=== PATIENT | female | born 1945 | race Caucasian/White ===

== ENCOUNTER 2025-09-25 13:58 | Inpatient (IN) | payer MEDICARE, OTHER, SELFPAY ==
--- OUTSIDE RECORDS SUMMARY | 2024-07-28 08:54 | XMS_ITS | Encounter Summary ---
Author Organization [facility] [address] Address [address] [place] [address] Care Team Providers Care Aluminum Pool Installer Name Role Phone Jermaine aLzaro MD Primary Care Provider [phone] Encounter Details Date Type Department Care Team (Late st Contact Info) Description 07/28/2024 9:54 AM EDT Hospital Encounter TH HISTORIC ENCOUNTERS EASTERN CONVERSION ONLY Social History Tobacco Use Types Packs/Day Years Used Date Smoking Tobacco: Never Smokeless Tobacco: Never Alcohol Use Standard Drinks/Week Comments Never 0 (1 standard drink = 0.6 oz pur e alcohol) Housing Instability Answer Date Recorde d Are you worried that in the next 2 months you may not have stable housing? No 09/16/2025 Food Access & Nutrition Answer Date Rec orded Do you have access to a vari ety of food including fruits and vegetables? Yes 09/16/2025 Access to Healthcare Answer Date Record ed Within the last 3 months, ho w many times did you visit the emergency department for your medical care? 2 09/16/2025 Health Literacy Answer Date Recorded How often do you need to hav e someone help you when you read instructions, pamphlets, or other written material from your doctor or pharmacy? Never 09/16/2025 Caregiver: How often do you need to have someone help you when you read instructions, pamphlets, or other written material from your doctor or pharmacy? Not on file 09/16/2025 Financial Risk Answer Date Recorded How hard is it for you to pa y for the very basics like food, housing, medical care, and air conditioning / heating? Not very hard 09/16/2025 Transportation Answer Date Recorded Has the lack of transportati on kept you from meetings, work, or from getting things needed for daily living? No Has the lack of transportati on kept you from medical appointments or from getting medications? No 09/16/2025 Social Isolation Answer Date Recorded How often do you feel lonely or isolated from th ose around you? Never 09/16/2025 Food Risk Answer Date Recorded Within the past 12 months we worried whether our food would run out before we got money to buy more. Never true 09/16/2025 Within the past 12 months th e food we bought just didn't last and we didn't have money to get more. Never true 09/16/2025 Dependent Care Answer Date Recorded Do you need help finding or paying for care for your loved ones. For example, vocational childcare teacher or elderly care for an older adult? No 09/16/2025 Education Answer Date Recorded Do you think completing more education or training, like finishing a GED, going to college, or learning a trade, would be helpful for you? No 09/16/2025 Employment and Income Answer Date Recor ded During the last four weeks, have you been actively looking for work? No 09/16/2025 Living Situation Answer Date Recorded What is your living situation? Unrecognized valu e 09/16/2025 Interpersonal Safety Answer Date Record ed Physical Abuse Unrecognized value 09/16/2025 Verbal Abuse Unrecognized value 09/16/2025 Comments No Sex and Gender Information Value Date Recorded Sex Assigned at Female 11/09/2024 1:36 PM EST Legal Sex Female 12:28 AM EST Gender Identity Female 11/09/2024 1:36 PM EST Sexual Orientation Straight 11/09/2024 1: 36 PM EST documented as of this encounter Last Filed Vital Signs Vital Sign Reading Time Taken Comments Blood Pressure - - Pulse - - Temperature - - Respiratory Rate - - Oxygen Saturation - - Inhaled Oxygen Concentration - - Weight 49.4 kg (109 lb) 04/10/2024 11:08 AM EDT Height - - Body Mass Index - - documented in this encounter Functional Status * Calculated C-SSRS Risk Score (Lifetime/Recent) Answer Date of Assessment Author No Risk Indicated 09/16/2025 11:15 AM Maria T Lau, FREDERICK * [place] Suicide Severity Rating Scale (Screener/Recent Self-Report) Question Answer Date of Assessment Author 1. Wish to be (Past 1 Month) No 09/16/2025 11:15 AM Amol Thacker RN 2. Non-Specific Active Suici elías Thoughts (Past 1 Month) No 09/16/2025 11:15 AM Me rogelio Thacker RN 6. Suicidal Behavior (Lifetime) No 11:15 AM Maria T Thacker, FREDERICK documented as of this encounter Progress Notes * Historical, Notes Results - 07/28/2024 10:00 AM EDT 1010: PT arrives today with Son for biweekly port drawn labs for possible blood transfusion. PT annel feels very weak today and thinks she needs a transfusion. PT sts she was in the ER over the weekend and received 2 units of blood. Port accessed without diff, +BR noted, labs obtained and sent, flushed per protocol with 3 flushes, deaccessed, dressing applied. PT aware to wear Typenex band for 3 days or until we call her, PT verbalized understanding. PT sts she is hoping for a blood transfusion to help with her weakness. PT left unit via wheelchair with son, stable at D/C. documented in this encounter Plan of Treatment Upcoming Encounters Date Type Department Care Team (Late st Contact Info) Description 01/24/2026 10:30 AM EDT Office Visit [facility] Hematology Oncology [address] [place] [phone] Marilee Rahman MD [address] [place] [address] documented as of this encounter Visit Diagnoses Not on filedocumented in this encounter Care Teams Aluminum Pool Installer Relationship Specialty Start Date End Date Jermaine Lazaro MD [address] [place] [id number] PCP - General Hide Buffer 02/06/22 documented as of this encounter
--- OUTSIDE RECORDS SUMMARY | 2024-08-11 12:24 | XMS_ITS | Encounter Summary ---
Author Organization [facility] Address [address] [place] [address] Care Team Providers Care Manager Programs Name Role Phone Jermaine Lazaro MD Primary Care Provider [phone] Encounter Details Date Type Department Care Team (Late st Contact Info) Description 08/11/2024 1:24 PM EDT Hospital Encounter TH HISTORIC ENCOUNTERS EASTERN [...] care for your loved ones. For example, child and youth program assistant or elderly care for an older adult? [...] 11:15 AM Maria T Lau, FREDERICK * [place] Suicide Severity Rating Scale (Screener/Recent Self-Report) Question [...] Progress Notes * Historical, Notes Results - 08/11/2024 1:30 PM EDT Patient arrives via wheelchair, accompanied by aide for a port blood draw. Port accessed, +BR. Cbcd, type and screen drawn. Port flushed per protocol. Patient discharged stable, via wheelchair. Accompanied by home health aide. documented in this encounter Plan of Treatment Upcoming Encounters Date Type Department Care Team (Late st Contact Info) Description 01/24/2026 10:30 AM EDT Office Visit [facility] Hematology Oncology [address] [place] [address] Marilee Rahman MD [address] [place] [address] documented as of this encounter Visit Diagnoses Not on filedocumented in this encounter Care Teams Manager Programs Relationship Specialty Start Date End Date Jermaine Lazaro MD [address] [place] [address] PCP - General Construction Tech 02/06/22 documented as of this encounter
--- OUTSIDE RECORDS SUMMARY | 2024-08-13 08:30 | XMS_ITS | Encounter Summary ---
Author Organization [facility] Address [address] [place] [address] Care Team Providers Care Apprentice Lineman Third Step Name Role Phone Jermaine Lazaro MD Primary Care Provider [phone] Encounter Details Date Type Department Care Team (Latest Contact Info) Description 08/13/2024 9:30 AM EDT Hospital Encounter TH HISTORIC ENCOUNTERS EASTERN CONVERSION ONLY Anemia, unspecified; Myelodysplastic syndrome, unspecified (CMS/HCC V24, CMS/HCC V28); Mitochondrial metabolism disorder, unspecified (CMS/HCC V24) Social History Tobacco Use Types Packs/Day Years [...] Record ed Within the last 3 months, jer w many times did you visit the [...] for your loved ones. For example, child abuse worker or elderly care for an older adult? [...] 11:15 AM Maria T Lau, FREDERICK * [place] Suicide Severity Rating Scale (Screener/Recent Self-Report) Question [...] Progress Notes * Historical, Notes Results - 08/13/2024 10:06 AM EDT 1006- Patient arrives, via wheelchair to unit accompanied by her aide for scheduled blood transfusion. Hemoglobin was 6.3 on 08/11/24. Typenex is current and dated the same day. Paper order in place to give two units PRBC's today. Unfortunately, blood order was never fax'd to blood bank and patienthas antibodies. This nurse fax'd the order this morning and blood bank notified RN that the processwould take awhile as patient has antibodies. Patient notified upon arrival. She reports frustrationdue to a busy and stressful week. History of CREST syndrome, anemia and MDS. She receives frequent blood transfusions here and tolerates well if blood is run slowly (history of PAH). Patient reports CARDENAS, intermittent dizziness and severe fatigue. Discussion on blood transfusion completed and consent signed. This will be scanned into the system with blood order. Left chest port a cath accessed without difficulty and NS flush bag with blood tubing hung. Patient remains comfortable in recliner with warm blankets while awaiting blood bank to call with news that blood is ready for pickling grader. Call white in reach. 1100- Blood bank called. Blood is ready. MA sent to blood bank for retrieval at this time. 1120- Unit of blood infusing. Patient is tolerating well thus far at second step slow rate of 100 mls/hr. Patient is sleeping on and off in recliner with the call white near. 1350- Patient requesting rate change from 100 mls/hr to 120 mls/hr. Will let this nurse know if shecannot tolerate the new rate. Rate adjusted at this time per patient request. 1505- Patient completed the first unit without difficulty. She was wheeled to the bathroom with assist then settled back in recliner. Port flushed and new NS flush bag with blood tubing hung. [facility] blood bank for second unit. 1542- Patient tolerating the second unit well thus far. Following the first step, patient continuesto tolerate the infusion at 120 mls/hr. She voices no concerns or complaints. 1720- Report given to Ale Cleaning, late nurse, as this nurse is leaving for the night. Patient updated. Next port draw and possible transfusion appointments booked, printed and given to patient. Shehas the phone number for her ELECTRICAL TECHNOLOGY INSTRUCTOR, to call when she is nearing time of discharge. * Historical, Notes Results - 08/13/2024 9:30 AM EDT 1822 Blood transfusion completed without incident, pt tells me she feels better than when she came in. Escorted outside to ride in wheelchair, her son picked her up. Stable at D/C. documented in this encounter Plan of Treatment Upcoming Encounters Date Type Department Care Team (Late st Contact Info) Description 01/24/2026 10:30 AM EDT Office Visit [facility] Hematology Oncology [address] [place] [phone] Marilee Rahman MD [address] [place] [address] documented as of this encounter Visit Diagnoses Diagnosis Anemia, unspecified Myelodysplastic syndrome, unspecified (CMS/HCC V24, CMS/HCC V28) Myelodysplastic syndrome, unspecified Mitochondrial metabolism disorder, unspecified (CMS/HCC V24) documented in this encounter Care Teams Apprentice Lineman Third Step Relationship Specialty Start Date End Date Jermaine Lazaro MD [address] [place] [address] PCP - General Utility Porter 02/06/22 documented as of this encounter
--- OUTSIDE RECORDS SUMMARY | 2025-09-15 11:53 | XMS_ITS | Encounter Summary ---
Author Organization [facility] Address [address] [place] [address] Care Team Providers Care Corporate Development Analyst Name Role Phone Jermaine Lazaro MD Primary Care Provider [phone] Reason for Referral * Home Health (Routine) - Closed Specialty Diagnoses / Procedures Referred By Andreas card Referred To Contact Home Health Services Diagnoses Pneumonia of left lung due to infectious organism, unspecified part of lung Bob Brown MD [address] [place] [id number] Phone: tel: fax: [address] [phone] Phone: tel: fax: Referral ID Status Reason Start Date Expiration Date V isits Requested Visits Authorized [id number] Closed Consult and Treat 09/24/2025 09/24/2026 1 1 Reason for Visit * Reason Comments Chest Pain Sternal chest pain x 1 that is resolved * Auth/Cert (Routine) Specialty Diagnoses / Procedures Referred By Contpaul t Referred To Contact Diagnoses SOB (shortness of breath) Pleural effusion Leg swelling Fluid overload Pneumonia of left lung due to infectious organism, unspecified part of lung Congestive heart failure, unspecified HF chronicity, unspecified heart failure type (CMS/HCC V24, CMS/HCC V28) Procedures / Cristhian Montoya MD [address] [place] [phone] Phone: tel: fax: [facility] [address] [place] [phone] Phone: tel: Referral ID Status Reason Start Date Expiration Date Visits Re quested Visits Authorized [id number] 1 1 Encounter Details Date Type Department Care Team (Late st Contact Info) Description 09/15/2025 11:53 AM EST - 09/24/2025 6:31 PM EST Hospital Encounter [facility] [address] [place] [phone] Angel Yuen MD [address] [facility] [address] [place] [address] Cristhian Montoya MD [address] [place] [phone] Mikael Balderas MD [address] [place] [phone] Madelin Erickson MD [address] [place] [phone] Bob Brown MD [address] [place] [id number] Pneumonia of left lung due to infectious organism, unspecified part of lung (Primary Dx); SOB (shortness of breath); Leg swelling; Pleural effusion; Congestive heart failure, unspecified HF chronicity, unspecified heart failure type (CMS/HCC V24, CMS/HCC V28); Fluid overload; Achalasia; Bacteremia; Splenic infarct; Aortic valve vegetation; 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 For example, childcare attendant or elderly care for an older adult? [...] Sign Reading Time Taken Comments Blood Pressure 137/52 09/24/2025 3:17 PM EST Pulse 122 09/24/2025 3:17 PM EST Temperature 36.3 C (97.3 F) 09/24/2025 3:17 PM EST Respiratory Rate 16 09/24/2025 3:17 PM EST Oxygen Saturation 94% 09/24/2025 3:17 PM EST Inhaled Oxygen Concentration - - Weight 54.9 kg (121 lb 1.6 oz) 09/24/2025 5:40 A M EST Height 160 cm (5' 3 ) 09/15/2025 12:15 PM EST Body Mass Index 21.45 09/15/2025 12:15 PM EST documented in this encounter Functional Status * Calculated C-SSRS Risk Score (Lifetime/Recent) Answer Date of Assessment Author No Risk Indicated 09/16/2025 11:15 AM EST Maria T Garber RN * [place] Suicide Severity Rating Scale (Screener/Recent Self-Report) Question Answer Date of Assessment Author 1. Wish to be (Past 1 Month) No 09/16/2025 11:15 AM EST Amol Marquez RN 2. Non-Specific Active Suici elías Thoughts (Past 1 Month) No 09/16/2025 11:15 AM EST Me rogelio Marquez RN 6. Suicidal Behavior (Lifetime) No 11:15 AM EST Maria T Marquez, FREDERICK documented as of this encounter Discharge Summaries * Bob Brown MD - 09/24/2025 11:19 AM EST Images from the original note were not included. DISCHARGE SUMMARY Patient Information wIona Romero : 1945 [80 y.o.] Admitting Provider Cristhian Montoya MD Discharge Provider Bob Brown MD, Bob Brown MD Primary Care Physician Jermaine Lazaro MD Admission Date 09/15/2025 Discharge Date 09/24/2025 Discharge disposition- Home with VNA Summary of Hospital Problems Primary Discharge Diagnosis: Esophageal candidiasis Bilateral aspiration pneumonia Achalasia CREST syndrome Hospital Course Summary Admission HPI from H&P per admitting physician/KIERRA- Iwona is a pleasant 80-year-old female with a past medical history to include recent left hip replacement at [facility] with subsequent 1 month stay at rehabilitation hospital, CREST syndrome, Myeloid dysplasia, aplastic anemia, scleroderma, among others as listed below who presents to the hospitaltoday at discretion of her visiting nurse for evaluation of chest pain. She underwent left hip replacement at [facility] at the end of July, subsequent with the [place] a assisted facility fora month and just returned home yesterday, 09/14/2025. She has been set up with visiting nursing services, who came to the house this morning and expressing concern regarding her general state of health. She ultimately had some discomfort in her chest with exertion at home and it was recommended that she seek evaluation in the emergency department. She has a history of peripheral edema and is on diuretics however often will not take this due to the inconvenience of having to urinate so frequent and the difficulty with outpatient follow-up given her recent hospitalizations and extensive medicalhistory. She has no chest pain and no shortness of breath. She has no cough or fevers. She was hopeful for her discharge back home and feels that she can manage her symptoms at home well. She does need wound care in the community. On arrival here in the hospital, initial vital signs with a blood pressure of 116/48, pulse of 51, respirations of 15 with an SpO2 of 99% on room air and a temperature of 36.6 ??C. She had lab work obtained which showed no significant leukocytosis, does show a left shift. Anemia with an H&H of 9.3 and 30.1 is seen. Electrolytes are within normal limits. Renal function is preserved. BNP is up at 961 however there is no historical labs for comparison. High-sensitivity troponin x 1 is 84, repeat has not been ordered. Ultrasound was obtained and does not show evidence of lower leg DVT. CTA ofthe chest does not show evidence of PE. Does show generalized increased fluids to have small to moderate bilateral pleural effusions, moderate ascites and a small pericardial effusion as well as edema of the soft tissues. Opacities in the left lower lobe may be secondary to atelectasis or pneumonia. Markedly dilated esophagus containing debris is also seen and suspects achalasia. Please see detailed radiology report for further findings. Given the suggestion of pneumonia, case was discussed with internal medicine and admission was requested. ANJU Mo Brief Hospital course 80-year-old female with past medical history significant for recent hip replacement and rehab stay,MDS, crest syndrome was admitted with chest pain and was found to have bilateral aspiration pneumonia in setting of achalasia along with bilateral pleural effusions. She was initially started on broad-spectrum Vanco and Zosyn, Vanco discontinued with MRSA nares negative and Zosyn discontinued due to TERE. Nephrology consulted for TERE in setting of volume overload she is being treated with ceftriaxone and doxycycline. She underwent EGD on 09/20 which suggested a peristalsis and modified diet ordered as per speech. Biopsy suggested esophageal candidiasis, could not start on Diflucan with borderline QTc and interaction with Seroquel, started on micafungin. TTE concerning for aortic valve calcification versus vegetation, ID consulted. Blood cultures sent. Aortic valve vegetation-ruled out -Noticed on TTE, could be calcification as well. Blood cultures sent and negative on day 2. -CT abdomen concerning for prior splenic infarcts. SERGIO ordered and unremarkable for any vegetation. - Discontinued antibiotics. Esophageal candidiasis - Noticed on EGD biopsy, started on micafungin due to prolonged QTc. She will require 14 days of antifungal. IV micafungin on discharge -As per Dr. Pacheco:Continue Micafungin 100 mg Q24 EOT 10/05 , please check weekly CBC and BMP and fax to my office at [phone] Chest pain Achalasia CREST syndrome - ACS workup unremarkable and troponin trended down. EKG unremarkable. - Modified diet due to ongoing aspiration and aperistalsis. EGD 09/20 consistent with aperistalsis, recommended patient to stay upright at all times including while at sleeping. -Candidiasis treatment as above. Bilateral aspiration pneumonia - Insetting of the aperistalsis, completed treatment of doxycycline and ceftriaxone. TERE- resolved - status post IV Lasix. Continue to monitor. Appreciate nephrology recommendations. Physical Exam at time of Discharge Temp (24hrs), Av.4 ??C (97.6 ??F), Min:36.1 ??C (97 ??F), Max:36.8 ??C (98.2 ??F) Body mass index is 21.45 kg/m??. No results found for: PTWT , PTHT Physical Exam General-patient appears comfortable, no acute distress, appears chronically ill HEENT-NCAT Eyes-anicteric Heart-Normal Rate and Rhythm Respiratory-CTAB Abdomen-Soft, nontender, nondistended Extremity-no significant lower extremity edema Neurology-awake alert oriented to time, place,and person Psych- Normal Mood and affect Skin-warm and dry Follow-Up Instructions and Recommendations -Outpatient follow-up with cardiology and GI. Discharge Medications Your medication list ASK your doctor about these medications Instructions Last Dose Given Next Dose Due alpha lipoic acid 300 mg capsule Take 300 mg by mouth every evening. alpha lipoic acid 600 mg capsule Take 600 mg by mouth. ambrisentan 5 mg tablet Commonly known as: LETAIRIS Letairis 5 mg tablet apixaban 2.5 mg tablet Commonly known as: ELIQUIS Take 1 tablet (2.5 mg total) by mouth 2 (two) times a day. B2-magnesium cit,oxid-feverfew 100-90-25 mg capsule Take by mouth. BIOTENE DRY MOUTH ORAL RINSE MM Biotene Dry Mouth Oral Rinse brinzolamide 1 % ophthalmic suspension Commonly known as: AZOPT Azopt 1 % eye drops,suspension carboxymethylcellulose 0.5 % ophthalmic solution Commonly known as: REFRESH PLUS 1 drop daily as needed. cod liver oiL oil Take by mouth. COQ10 (UBIQUINOL) ORAL Take 300 mg by mouth 1 (one) time each day. creatine 100 % powder powder by [facility].(Non-Drug; Combo Route) route. 1/4 tsp 2 times per day ergocalciferol 1,250 mcg (50,000 unit) capsule Commonly known as: VITAMIN D-2 Take 10,000 mg by mouth 3 (three) times a week. furosemide 20 mg tablet Commonly known as: LASIX Take 1 tablet (20 mg total) by mouth 1 (one) time each day. gabapentin 100 mg capsule Commonly known as: NEURONTIN Take 2 capsules (200 mg total) by mouth at bedtime. lidocaine-prilocaine 2.5-2.5 % cream Commonly known as: EMLA metoprolol succinate 50 mg 24 hr tablet Commonly known as: TOPROL-XL Take 2 tablets (100 mg total) by mouth 1 (one) time each day. Miebo (PF) 100 % drops Generic drug: perfluorohexyloctane (PF) naproxen sodium 220 mg tablet Commonly known as: ANAPROX Take 1 tablet (220 mg total) by mouth as needed for pain. [place]-3 2100 1,050 mg(300 mg -675 mg-75 mg) capsule Generic drug: spjfu-2-hyj-gaj-cxl-aoqm oil Take 1 tablet by mouth. pantoprazole 40 mg EC tablet Commonly known as: PROTONIX TAKE 1 TABLET DAILY BEFORE BREAKFAST. DO NOT CRUSH, CHEW OR SPLIT PRESERVISION AREDS ORAL Take by mouth. QUEtiapine 25 mg tablet Commonly known as: SEROquel Take 1 split tablet (12.5 mg total) by mouth every night at bedtime. sildenafil 20 mg tablet Commonly known as: REVATIO thiamine 100 mg tablet Commonly known as: VITAMIN B-1 Vitamin B-1 treprostinil diolamine 1 mg tablet extended release Commonly known as: ORENITRAM 3 mg 3 (three) times a day. vitamin C tablet Take 1 tablet (100 mg total) by mouth. Lab Results Component Value Date GLUCOSE 126 (H) 09/23/2025 CALCIUM 8.2 (L) 09/23/2025 NA 141 09/23/2025 K 4.2 09/23/2025 CO2 22 09/23/2025 CL 110 09/23/2025 BUN 41 (H) 09/23/2025 CREATININE 1.00 09/23/2025 Lab Results Component Value Date WBC 10.1 09/24/2025 HGB 10.9 (L) 09/24/2025 HCT 35.8 09/24/2025 MCV 100.0 (H) 09/24/2025 PLT 382 09/24/2025 CT Angio Chest wo and/or w Contrast Result Date: 09/15/2025 INDICATION: concern PE CT angiography chest with contrast. 3D Postprocessing. Comparison: None provided Findings: Mild cardiomegaly. Small pericardial effusion. The thoracic aorta is normal caliber. No acute pulmonary embolus. Markedly heterogeneous thyroid gland with multiple small nodules. Markedly dilated esophagus containing debris. No mediastinal lymphadenopathy. There are small to moderate bilateral pleural effusions. There are ground-glass and linear opacities and small foci of consolidation and volume loss within adjacent portions of the left lower lobe. Relatively mild dependent changes within the right lung. Mild bilateral apical scarring. There is a moderate amount of ascites within the visualized abdomen. There is edema of the soft tissues. Status post right shoulder replacement. No acute fracture. There is a left-sided Port-A-Cath with its tip at the cavoatrial junction. 1. There is no evidence of pulmonary artery embolism. 2. There is generalized increased fluid status with [id number]-zu-zpidqopy bilateral pleural effusions, moderate ascites, a small pericardial effusionand edema of the soft tissues. 3. Opacities within the left lower lobe may be secondary to atelectasis or pneumonia. 4. Markedly dilated esophagus containing debris. Suspect achalasia. This document has been electronically signed by: Lindsay Moura MD on 09/15/2025 17:55:20 Vascular US Duplex Lower Extremity Venous Bilateral Result Date: 09/15/2025 INDICATION: bilateral leg pain and swelling. FINDINGS: A duplex venous ultrasound was performed of both lower extremities. The common femoral, superficial femoral and popliteal veins demonstrate color-flow with augmentation and compressibility. The visualized calf veins also demonstrate color-flow.Soft tissue edematous changes noted bilaterally. Incidental note made of small amount of ascites inthe right lower quadrant. CONCLUSION: No evidence of deep vein thrombosis in either lower extremity. -------- FINAL REPORT -------- Dictated By: Keith Santo Dictated Date: 09/15/2025 15:09 ET Assigned Physician: Keith Santo Reviewed and Electronically Signed By: Keith Santo Signed Date: 15:10 ET Workstation ID: [id number] Transcribed By: Self Edit Transcribed Date: 09/15/2025 15:09 ET XR Chest 2 Views Result Date: 09/15/2025 INDICATION: Chest pain FINDINGS: Two views of the chest were obtained. Compared to multiple prior studies most recent from July 24, 2024. Lung tracey are mildly hypoinflated. Airspace disease within the left lung base likely represents atelectasis and/or infiltrate with possible small effusion. Ca rdiomediastinal silhouette is normal in size and shape. Diffuse thoracic aortic calcification with mild tortuosity. Osteopenia and degenerative changes with reverse total right shoulder replacement, well-positioned and unchanged. Left basilar atelectasis and/or infiltrate with small effusion suspected. -------- FINAL REPORT -------- Dictated By: Keith Santo Dictated Date: 09/15/2025 14:24 ET Assigned Physician: Keith Santo Reviewed and Electronically Signed By: Keith Santo Signed Date: 09/15/2025 14:27 ET Workstation ID: [id number] Transcribed By: Self Edit Transcribed Date: 09/15/2025 14:24 ET About 35 minutes spent independently today in discharge process for this patient including but not limited to chart review, clinical decision making, care coordination. documented in this encounter Discharge Instructions * Discharge Instructions* Hanh Cerrato RN - 09/24/2025 3:29 PM EST WOUND CARE INSTRUCTIONS Sacrum- apply zinc moisture barrier to anne wound, apply Santyl- nickel thickness onto wound, coverwith Normal saline solution moistened 2x2, apply allevyn/mepilex sacral Rt buttock stage 2 PI- apply zinc moisture barrier Avoid sacral postioning unless for meals, side postioning with bellow rolledbegind back, sacral area open and another pillow lower buttock /thighs- change postioning side to side q 2 hr * Attachments The following attachments cannot be sent through Care Everywhere. * Hiatal Hernia (Japanese) * Esophageal Spasm (Japanese) documented in this encounter Medications at Time of Discharge ambrisentan (LETAIRIS) 5 mg tablet Letairis 5 mg tablet 09/01/2021 brinzolamide (AZOPT) 1 % ophthalmic suspension Azopt 1 % eye drops,suspensi on 02/20/2021 cod liver oiL oil Take by mouth. ergocalciferol (VITAMIN D-2) 1,250 mcg (50,000 unit) capsule Take 10,000 mg by mouth 3 (three) times a week. gabapentin (NEURONTIN) 100 mg capsule Take 2 capsules (200 mg total) by mouth at bedtime. 04/16/2024 metoprolol succinate (TOPROL-XL) 50 mg 24 hr tablet Take 1 tablet (50 mg total) by mouth 1 (one) time each day. Do not crush or chew. 30 each 11 09/24/2025 micafungin 100 mg in sodium chloride 0.9 % 100 mL IVPB Infuse 100 mg into a venous catheter 1 (one) time each day at the same time for 11 doses. 09/24/2025 oxyCODONE (ROXICODONE) 5 mg immediate release tablet Take 1 tablet (5 mg total) by mouth every 6 (six) hours if needed for severe pain for up to 3 days. Max Daily Amount: 20 mg 12 each 09/24/2025 5 pantoprazole (PROTONIX) 40 mg EC tabletIndications :Gastroesophageal reflux disease without esophagitis TAKE 1 TABLET DAILY BEFORE BREAKFAST. DO NOT CRUSH, CHEW OR SPLIT 90 tablet 3 08/09/2025 QUEtiapine (SEROquel) 25 mg tablet Take 1 split tablet (12.5 mg total) by mouth every night at bedtime. sildenafil (REVATIO) 20 mg tablet 09/26/2023 treprostinil diolamine (ORENITRAM) 1 mg tablet extended release 3 mg 3 (three) times a day. alpha lipoic acid 300 mg capsule Take 300 mg by mouth every evening. alpha lipoic acid 600 mg capsule Take 600 mg by mouth. B2-magnesium cit,oxid-feverfew 100-90-25 mg capsule Take by mouth. carboxymethylcell ulose (REFRESH PLUS) 0.5 % ophthalmic solution 1 drop daily as needed. COQ10, UBIQUINOL, ORAL Take 300 mg by mouth 1 (one) time each day. creatine 100 % powder powder by [facility].(Non-Drug ; Combo Route) route. 1/4 tsp 2 times per day lidocaine-priloca ine (EMLA) 2.5-2.5 % cream 08/19/2023 MARTI Riley, 100 % drops 04/08/2025 naproxen sodium (ANAPROX) 220 mg tablet Take 1 tablet (220 mg total) by mouth as needed for pain. lalns-9-vvt-epa-d pa-fish oil ([place]-3 2100) 1,050 mg(300 mg -675 mg-75 mg) capsule Take 1 tablet by mouth. saliva substitute combo no.9 (BIOTENE DRY MOUTH ORAL RINSE MM) Biotene Dry Mouth Oral Rinse thiamine 100 mg tablet Vitamin B-1 vit A/vit C/vit E/zinc/copper (PRESERVISION AREDS ORAL) Take by mouth. Vitamin C tablet Take 1 tablet (100 mg total) by mouth. documented as of this encounter Ordered Prescriptions Prescription Sig Dispense Quantity Refills Last Filled Start Date End Date micafungin 100 mg in sodium chloride 0.9 % 100 mL IVPB Infuse 100 mg into a venous catheter 1 (one) time each day at the same time for 11 doses. 09/24/2025 5 oxyCODONE (ROXICODONE) 5 mg immediate release tablet Take 1 tablet (5 mg total) by mouth every 6 (six) hours if needed for severe pain for up to 3 days. Max Daily Amount: 20 mg 12 each 09/24/2025 5 metoprolol succinate (TOPROL-XL) 50 mg 24 hr tablet Take 1 tablet (50 mg total) by mouth 1 (one) time each day. Do not crush or chew. 30 each 11 09/24/2025 6 doxycycline (MONODOX) 100 mg capsule Take 1 capsule (100 mg total) by mouth 2 (two) times a day for 1 dose. Take with at least 8 ounces (large glass) of water, do not lie down for 30 minutes after 1 each 09/24/2025 5 documented in this encounter Discharge Disposition Disposition Code Departure Means Destination Comment s Home-Health Care [facility] documented in this encounter Progress Notes * Hanh Cerrato RN - 09/24/2025 5:27 PM EST Patient ready for discharge, VSS. Left chest port a cath remains accessed as patient will be receiving IV abo's at home. Discharge instructions discussed with patient at bedside. Patient verbalized understanding. Patient discharged home with VNA via ambulance * Sarah Branch RN - 09/24/2025 11:37 AM EST 09/24/25 1136 Medication Coverage Has Med Coverage Under Insurance Plan Yes Medication Affordability No concerns related to payment for meds Anticipated Discharge Needs Discipline following for SNF placement Pharmacy Billing Adjudicator Informed Choice Informed Choice Given? Yes Transportation Transportation at discharge Ambulance Company providing transportation [place] What day is the transport expected? 09/24/25 What time is the transport expected? 1700 Final Discharge Disposition Home Health Care Services [facility] met with patient and spoke with jimmy Doug over the phone. [facility] They have arranged for someone to come daily to the home and administer the IV abx. [facility] will transport patient home tonight at 5pm after her afternoon dose is administered. * Hattie Thorne, HIA - 09/24/2025 10:30 AM EST Images from the original note were not included. Speech Language Pathology [facility] MISSION ANALYST TREATMENT NOTE NAME: Iwona Romero DATE OF : 1945 ROOM: 221/221-1 Pt ID by: Self, Full Name and DATE: 09/24/25 RECOMMENDATIONS: DIET SOLIDS RECOMMENDATIONS: IDDSI Level 6 Soft and Bite Sized (minced/moist solids) DIET LIQUIDS RECOMMENDATIONS: Thin liquids ASPIRATION RISK: Diet Solids Recommendation: IDDSI Level 6 Soft and Bite Sized (minced/moist solids) Diet Liquids Recommendation: Thin liquids Liquid Administration Via: Cup, Straw Compensatory Swallowing Strategies: Alternate solids and liquids, Remain upright for 20-30 minutes after meals, Small bites/sips Recommended Medication Route: PO Recommended Medication Administration: (per pt preference. Pt wants pills not crushed) IMPRESSIONS: MISSION ANALYST ASSESSMENT: MISSION ANALYST Assessment Results: Swallowing impairments Dysphagia Diagnosis: (Known Esophageal Dysphagia) Evaluation/Treatment Tolerance: Patient tolerated treatment well Comments: Patient tolerating current diet without difficulties, given use of swallow strategies. Ptwould like to remain on current at this time. RN reports good toleration of meds whole, earlier today. No further MISSION ANALYST services indicated. Medical Staff Made Aware: Yes Comments: RN TIME CALCULATION: MISSION ANALYST Start Time: 1015 MISSION ANALYST Stop Time: 1030 MISSION ANALYST Time Calculation (min): 15 min Bus System Operator Required: No ADMISSION DIAGNOSIS: SOB (shortness of breath) [R06.02] Pleural effusion [J90] Leg swelling [M79.89] Fluid overload [E87.70] Pneumonia of left lung due to infectious organism, unspecified part of lung [J18.9] Congestive heart failure, unspecified HF chronicity, unspecified heart failure type (CMS/HCC V24, CMS/HCC V28) [I50.9] FAMILY/CAREGIVER PRESENT: No SUBJECTIVE SUBJECTIVE: Chart reviewed and cleared by RN for MISSION ANALYST session. Pleasant, reports dry mouth. RN reports pt does not want pills crushed, was able to take whole. Pt to be dc'd today. RESPIRATORY STATUS: Room air PRECAUTIONS: Swallow Precautions: Aspiration MENTAL STATUS Alert Responsive Cooperative OBJECTIVE OXYGEN THERAPY: TREATMENTS: SWALLOW FUNCTION: Swallow/Oral Function Treatment Time Entry: 15 Swallow Activity 1: Thin liquids via straw: no coughing, no throat clearing. Pt reports no pain. Swallow Activity 2: Pt declined solid trials at this time. Voiced preference for current diet Level6 with minced/moist meats. Swallow Activity 3: Per RN pt asked not to crush meds. Pt tolerated whole meds without difficulty. Diet Recommendations: IDDSI 6 with minced/moist solids and thin liquids ASPIRATION RISK: Diet Solids Recommendation: IDDSI Level 6 Soft and Bite Sized (minced/moist solids) Diet Liquids Recommendation: Thin liquids Liquid Administration Via: Cup, Straw Compensatory Swallowing Strategies: Alternate solids and liquids, Remain upright for 20-30 minutes after meals, Small bites/sips Recommended Medication Route: PO Recommended Medication Administration: (per pt preference. Pt wants pills not crushed) SPEECH AND LANGUAGE: CURRENT DIET ORDERED: Dietary Orders (From admission, onward) Start Ordered 09/17/25 1511 Dietary nutrition supplements Three times daily (TID); [facility]; Standard Oral Supplement Continuous Comments: Chocolate ensure with meals Question Answer Comment Frequency Three times daily (TID) Location [facility] Supplements Standard Oral Supplement 09/17/25 1511 PLAN MISSION ANALYST PLAN: Treatment/Interventions: Swallow function MISSION ANALYST Plan: No skilled MISSION ANALYST No Skilled MISSION ANALYST: Independent with swallowing, No acute MISSION ANALYST goals identified MISSION ANALYST Frequency: Follow-up visit only MISSION ANALYST - Evaluation Status: Complete Diet Recommendations: IDDSI 6 with minced/moist solids and thin liquids DISCHARGE RECOMMENDATIONS No Speech-Language Pathology (MISSION ANALYST) services/needs at next level of care. EDUCATION EDUCATION: Education Documentation Modified Diet Training, taught by HAI Levy at 09/24/2025 12:56 PM. Learner: Patient Readiness: Acceptance Method: Explanation, Demonstration Response: Verbalizes Understanding Education Comments No comments found. GOALS GOALS: Encounter Problems Encounter Problems (Active) There are no active problems. Encounter Problems (Resolved) Template: Speech Therapy Problem: Swallowing Dates: Start: 09/18/25 Resolved: 09/24/25 Goal: Patient will tolerate the least restrictive diet consistency to allow for safe consumption ofdaily meals (Resolved) Dates: Start: 09/18/25 Expected End: 09/18/25 Resolved: 09/24/25 Outcomes Date/Time User Outcome 09/24/25 1256 HAI Levy Completed HAI Levy 09/24/2025 * Bob Brown MD - 09/23/2025 1:07 PM EST Images from the original note were not included. [facility] PROGRESS NOTE Date: 09/23/2025 Author: Bob Brown MD Patient ID: Iwona Romero is a 80 y.o. female : 1945 MR#: [id number] SUBJECTIVE Subjective Patient planned for SERGIO today was negative for any vegetation. She will be going home on IV micafungin, plan for midline placement today. Objective Allergy- Epinephrine, Bee venom protein (honey bee), Cyclosporine, Mushroom, and Niacin OBJECTIVE Vitals: 09/23/25 1155 09/23/25 1200 09/23/25 1210 09/23/25 1250 BP: (!) 142/54 134/54 (!) 149/94 (!) 143/65 Pulse: 74 80 88 (!) 117 Resp: 18 Temp: 36.5 ??C (97.7 ??F) TempSrc: SpO2: 95% 92% 90% 93% Weight: Height: Temp (24hrs), Av.4 ??C (97.6 ??F), Min:36.2 ??C (97.2 ??F), Max:36.7 ??C (98.1 ??F) Physical Exam General-patient appears comfortable, no acute distress, appears chronically ill HEENT-NCAT Eyes-anicteric Heart-Normal Rate and Rhythm Respiratory-CTAB Abdomen-Soft, nontender, nondistended Extremity-no significant lower extremity edema Neurology-awake alert oriented to time, place,and person Psych- Normal Mood and affect Skin-warm and dry Lab Results: CBC BMP Results from last 7 days Lab Units 09/23/2552209/22/25 0454 09/21/25 0520 09/20/25 0450 WBC AUTO K/mcL 9.6 8.1 11.7* 5.4 HEMOGLOBIN g/dL 9.7* 8.9* 11.3* 9.3* HEMATOCRIT % 32.0* 28.5* 37.1 31.1* PLATELETS K/mcL 287 216 299 174 LYMPHS PCT AUTO % 4.9 5.4 5.0 6.0 MONO PCT AUTO % 5.7 9.0 7.6 7.3 EOS PCT AUTO % 0.4 1.1 0.2 8.8 Results from last 7 days Lab Units 09/23/25 0509/22/25 0454 09/21/25 0520 09/20/25 0450 SODIUM mmol/L 141 140 142 141 POTASSIUM mmol/L 4.2 4.3 4.4 4.3 CHLORIDE mmol/L 110 110 111* 111* CO2 mmol/L 22 22 21 22 ANION GAP 9 8 10 8 BUN mg/dL 41* 43* 43* 41* CREATININE mg/dL 1.00 1.06 1.26* 1.56* CALCIUM mg/dL 8.2* 7.9* 8.0* 7.2* MAGNESIUM mg/dL 1.8* 1.7* -- -- PHOSPHORUS mg/dL 3.2 2.8 -- -- Results from last 7 days Lab Units 09/23/25 0523 09/22/25 0454 09/21/25 0520 09/20/25 0450 09/19/25 0551 GLUCOSE mg/dL 126* 117* 147* 136* 101* No lab exists for component: TBIL , BILID Scheduled Medications PRN Medications IV Medications apixaban, 2.5 mg, BID ascorbic acid, 250 mg, Daily collagenase, , Daily dorzolamide, 1 drop, TID gabapentin, 200 mg, Nightly lidocaine, 1 patch, Daily magnesium oxide, 400 mg, Daily metoprolol succinate, 50 mg, Daily micafungin, 100 mg, q24h pantoprazole, 40 mg, q12h SILVANO ambrisentan, 5 mg, Daily treprostinil diolamine, 3 mg, TID polyetheylene glycol, 17 g, Nightly QUEtiapine, 25 mg, Nightly sildenafil, 20 mg, TID sodium chloride, 10 mL, BID zinc sulfate, 220 mg, Daily acetaminophen, 650 mg, q6h PRN HYDROmorphone, 0.5 mg, q3h PRN ondansetron, 4 mg, q6h PRN oxyCODONE, 5 mg, q6h PRN sodium chloride, 10 mL, PRN ASSESSMENT & PLAN Assessment/Plan Principal Problem: Fluid overload 80-year-old female with past medical history significant for recent hip replacement and rehab stay,MDS, crest syndrome was admitted with chest pain and was found to have bilateral aspiration pneumonia in setting of achalasia along with bilateral pleural effusions. She was initially started on broad-spectrum Vanco and Zosyn, Vanco discontinued with MRSA nares negative and Zosyn discontinued due to TERE. Nephrology consulted for TERE in setting of volume overload she is being treated with ceftriaxone and doxycycline. She underwent EGD on 09/20 which suggested a peristalsis and modified diet ordered as per speech. Biopsy suggested esophageal candidiasis, could not start on Diflucan with borderline QTc and interaction with Seroquel, started on micafungin. TTE concerning for aortic valve calcification versus vegetation, ID consulted. Blood cultures sent. Aortic valve vegetation-ruled out -Noticed on TTE, could be calcification as well. Blood cultures sent and negative on day 2. -CT abdomen concerning for prior splenic infarcts. SERGIO ordered and unremarkable for any vegetation. - Discontinued antibiotics. Esophageal candidiasis - Noticed on EGD biopsy, started on micafungin due to prolonged QTc. She will require 14 days of antifungal. Plan for midline placement and IV micafungin on discharge -As per Dr. Pacheco:Continue Micafungin 100 mg Q24 EOT 10/05 , please check weekly CBC and BMP and fax to my office at [phone] Chest pain Achalasia CREST syndrome - ACS workup unremarkable and troponin trended down. EKG unremarkable. - Modified diet due to ongoing aspiration and aperistalsis. EGD 09/20 consistent with aperistalsis, recommended patient to stay upright at all times including while at sleeping. -Candidiasis treatment as above. Bilateral aspiration pneumonia - Insetting of the peristalsis, completed treatment of doxycycline and ceftriaxone. TERE- resolved - status post IV Lasix. Continue to monitor. Appreciate nephrology recommendations. Follow-up on renal ultrasound. Chronic conditions: -Coccyx wound: Wound care, as needed oxycodone. - Pulmonary arterial hypertension: Sildenafil, letaris - MDS: Outpatient oncology follow-up. -A-fib: Continue with [facility] reduced dose Eliquis and Toprol 50 mg daily. VTE Prophylaxis: SCD Diet: Soft and bite sized Resuscitation: Full code Discharge barrier-outpatient IV antifungal All labs, imaging, relevant history personally reviewed by me. Please be aware that the above note was completed using voice recognition software. If you have anyquestions please contact the author of this note for clarification. 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 QUERY TEXT: The patient has an order for the following medication: apixaban (ELIQUIS) 2.[address] Brown 09/22/25 -A-fib: Continue with [facility] reduced dose Eliquis and Toprol 50 mg daily. Please provide the corresponding diagnosis that supports the use of the following medication ordered and administered: Prabha Álvarez RN, Clinical [facility] [phone] The patient's clinical indicators include: Options provided: -- secondary hyper-coagulable state -- Other - I will add my own diagnosis -- Disagree - Not applicable / Not valid Query created by: Prabha Álvarez on 09/22/2025 4:45 PM PROVIDER RESPONSE TEXT: The patient has chronic atrial fibrillation, unspecified. QUERY TEXT: Atrial fibrillation is documented in the medical record. Please clarify the type such as: PN Dr. Brown 09/22/25 -A-fib: Continue with [facility] reduced dose Eliquis and Toprol 50 mg daily. Prabha Álvarez RN, [facility] [phone] The patient's clinical indicators include: Options provided: -- Chronic, unspecified -- Chronic persistent -- Longstanding persistent -- Other persistent, Please specify type. -- Paroxysmal -- Permanent -- Other - I will add my own diagnosis -- Disagree - Not applicable / Not valid Query created by: Prabha Álvarez on 09/22/2025 4:47 PM Electronically signed by: BOB BROWN MD 09/23/2025 1:07 PM * Lois Pacheco MD - 09/23/2025 12:17 PM EST Iwona Romero is here for { Chest Pain (Sternal chest pain x1 that is resolved) Subjective Seen after SERGIO, drowsy, c/o a headache Review of Systems Review of Systems Constitutional: Negative. HENT: Negative. Respiratory: Negative. Cardiovascular: Negative. Gastrointestinal: Negative. Genitourinary: Negative. Musculoskeletal: Negative. Skin: Negative. Neurological: Positive for headaches. Physical Examination: Vitals: Visit Vitals BP (!) 149/94 Pulse 88 Temp 36.4 ??C (97.6 ??F) Resp 18 Physical Exam Vitals reviewed. Constitutional: Appearance: Normal appearance. HENT: Head: Normocephalic and atraumatic. Eyes: General: No scleral icterus. Cardiovascular: Rate and Rhythm: Normal rate and regular rhythm. Heart sounds: No murmur heard. No friction rub. No gallop. Pulmonary: Effort: No respiratory distress. Breath sounds: No stridor. No wheezing or rhonchi. Abdominal: General: There is no distension. Tenderness: There is no abdominal tenderness. There is no guarding or rebound. Musculoskeletal: General: No deformity or signs of injury. Skin: Coloration: Skin is not jaundiced or pale. Neurological: Mental Status: She is alert. Objective Recent Lab Results: Lab Results Component Value Date WBC 9.6 09/23/2025 RBC 3.20 (L) 09/23/2025 HGB 9.7 (L) 09/23/2025 HCT 32.0 (L) 09/23/2025 MCV 100.0 (H) 09/23/2025 MCHC 30.3 (L) 09/23/2025 RDW 18.9 (H) 09/23/2025 PLT 287 09/23/2025 MPV 10.0 09/23/2025 NRBC 0.0 09/23/2025 DIFF Lab Results Component Value Date LYMPHOPCT 4.9 09/23/2025 NEUTROABS 8.45 (H) 09/23/2025 LYMPHSABS 0.47 (L) 09/23/2025 MONOABS 0.55 09/23/2025 EOSABS 0.04 09/23/2025 BASOSABS 0.03 09/23/2025 IMMGRANABS 0.07 (H) 09/23/2025 RETIC No results found for: RETIC , RETICCTPCT Lab Results Component Value Date BLOODCX No growth at 24 hours 09/21/2025 BLOODCX No growth at 24 hours 09/21/2025 MRSA Not Detected 09/15/2025 Recent Results (from the past week) Blood Culture, Peripheral Draw #1 Collection Time: 09/21/25 2:35 PM Specimen: Blood, Venous Result Value Ref Range Culture, Blood No growth at 24 hours Blood Culture, Peripheral Draw #2 Collection Time: 09/21/25 2:50 PM Specimen: Blood, Venous Result Value Ref Range Culture, Blood No growth at 24 hours Recent Imaging Findings: CT Abdomen Pelvis w Contrast Result Date: 09/22/2025 Narrative: INDICATION: Aortic vegetation, rule out septic emboli TECHNIQUE: CT scan of the abdomen and pelvis obtained with a total of 90 cc of Isovue-370 administered intravenously without incident.Oral contrast was not administered. Dose reduction technique: ASIR (Adaptive statistical iterative reconstruction) and/or AEC (automated exposure control) Dose: total exam DLP 3666.80 mGY per cm COMPARISON: August 27, 2023 FINDINGS: Partially imaged small right and moderate left pleural effusion with associated atelectasis. Air-fluid level within distended distal esophagus. Bony structures demonstrate osteopenia and degenerative changes with posterior lumbar fusion at the L4-L5. Well-positioned left hip replacement. Cirrhotic liver morphology. Screening, adrenal glands and kidneys are withinnormal limits. Contracted gallbladder with small calcified gallstones. Spleen demonstrates some small peripheral low-attenuation regions however these are also noted on the prior study and may represent sequelae of prior infarcts. New small acute infarcts structures not excluded. Spleen is also overall decreased in size from the prior study. Unremarkable. Small bowel loops are normal in course and caliber without wall thickening or dilatation. Terminal ileum unremarkable. Normal appendix. Fluidattenuation noted: With patent colostomy left lower quadrant. Small to moderate amount of diffuse simple appearing ascites. No free air. Urinary bladder normal. Uterus unremarkable and unchanged. No adnexal masses. Diffuse calcification noted along the visualized thoracoabdominal aorta and iliac vessels. 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 Impression: Low-attenuation peripheral foci within the spleen 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 Cirrhotic liver morphology with small to moderatediffuse ascites suggestive of portal hypertension. Interval improvement of splenomegaly. -------- FINAL REPORT -------- Dictated By: Keith Santo Dictated Date: 09/22/2025 11:50 ET Assigned Physician: Keith Santo Reviewed and Electronically Signed By: Keith Santo Signed Date: 09/22/2025 12:12 ET Workstation ID: [id number] Transcribed By: Self Edit Transcribed Date: 09/22/2025 11:[address] Head wo and w Contrast Result Date: 09/22/2025 Narrative: INDICATION: Concern for septic emboli with aortic vegetation. Patient cannot tolerate MRI scanning. FINDINGS: Axial images were obtained from the skull base to the vertex with and without contrast enhancement. A total of 90 mL of Isovue-370 administered intravenously without incident. Compared to noncontrast study from August 12, 2015. Dose reduction technique: ASIR (Adaptive statistical iterative reconstruction) Dose: total exam DLP 3666.80 mGY per cm There is no evidence of acute intracranial hemorrhage, midline shift or mass-effect. The ventricles, sulci, sylvian fissures and basilar cisterns are symmetrically enlarged. There are no abnormal intra or extra-axial fluid collections. Mild periventricular white matter changes. No abnormal enhancement noted. Patent dural sinuses. The visualized bony structures and soft tissues are unremarkable. Visualized portions of the paranasal sinuses are clear. Impression: No evidence of acute intracranial process. No evidence of abnormal enhancement. -------- FINAL REPORT -------- Dictated By: Keith Santo Dictated Date: 09/22/2025 11:29 ET Assigned Physician: Keith Santo Reviewed and Electronically Signed By: Keith Santo Signed Date: 09/22/2025 11:32 ET Workstation ID: [id number] Transcribed By: Self Edit Transcribed Date: 09/22/2025 11:29 ET EGD Anesthesia - MAC; [facility] ENDOSCOPY Result Date: 09/20/2025 Narrative: [facility] GI Patient Name: Iwona Romero Procedure Date: 09/20/2025 7:54 AM Date of : 1945 Age: 80 Gender: Female Note Status: Finalized Attending MD: Caitlin Birmingham MD, Procedure Date No Time: 09/20/2025 Procedure: UpperGI endoscopy Indications: Abnormal CT of the GI tract, Patient with dilated debris filled esophaguson CT scan. Patient has a histry of CREST syndrome and recurrent aspiration pneumonia. Providers: Caitlin Birmingham MD Referring MD: Caitlin Birmingham MD Medicines: Propofol per Anesthesia Complications: No immediate complications. Estimated Blood Loss: Estimated blood loss: none. Procedure: Pre-Anesthesia Assessment: - ASA Grade Assessment: IV - A patient with severe systemic disease that is aconstant threat to life. After obtaining informed consent, the endoscope was passed under direct vision. Throughout the procedure, the patient's blood pressure, pulse, and oxygen saturations were mon itored continuously.The Endoscope was introduced through the mouth, and advanced to the second partof duodenum. The upper GI endoscopy was accomplished without difficulty. The patient tolerated the procedure well. Findings: The lumen of the esophagus was moderately dilated. Abnormal motility was noted in the esophagus. The cricopharyngeus was normal. There is a decrease in motility of the esophag eal body. The distal esophagus/lower esophageal sphincter is open. Diffuse mucosal changes characterized by adherent debris were found in the mid esophagus and in the distal esophagus. Biopsies were taken with a cold forceps for histology. A small hiatal hernia was present. No gross lesions were noted in the entire examined stomach. The examined duodenum was normal. Procedure Code(s): --- Professional --- 08760, Esophagogastroduodenoscopy, flexible, transoral; with biopsy, single or multipleDiagnosis Code(s): --- Professional --- K22.4, Dyskinesia of esophagus K44.9, Diaphragmatic hernia without obstruction or gangrene R93.3, Abnormal findings on diagnostic imaging of other parts of dig estive tract K22.89, Other specified disease of esophagus CPT copyright 2020 [employer]. All rights reserved. The codes documented in this report are preliminary and upon public speaking coach review may be revised to meet current compliance requirements. Caitlin Birmingham MD 09/20/2025 8:14:33 AM This report has been signed electronically.Caitlin Birmingham MD Number of Addenda:0 Note Initiated On: 09/20/2025 7:54 AM Scope In: Scope Out: Endoscopy Department at [facility] - [address] [place] [id number] Impression: - Dilation in the entire esophagus. - Abnormal esophageal motility, consistent with aperistalsis. - Adherent debris mucosa in the esophagus. - Small hiatal hernia. - No gross lesions in the entire stomach. - Normal examined duodenum. - No specimens collected. Recommendation: - Await pathology results. - Findings consistent with poor/absent motility of the esophagus. Would recommend always staying upright as much as posible- including sleeping. Small meals with frequent liquids. Transthoracic echocardiogram (TTE) complete with PRN contrast, bubble, strain, and 3D order panel Result Date: 09/18/2025 Narrative: Technically difficult study. Left Ventricle: There is severe concentric hypertrophy. Systolic function is hyperdynamic with an ejection fraction over 70%. LV global longitudal strain is normal. Global longitudinal strain is -22.3%. There are no regional LV wall motion abnormalities. Left ventricle: There is moderate mid-cavity gradient of 52 mmHg at rest with no significant change withValsalva. Aortic Valve: There is moderate stenosis. Aortic valve: In some of the parasternal views,there is evidence of an echodensity associated to the LVOT side of the aortic valve. This could repr esent a calcification. However, a vegetation cannot be completely ruled out with the available images. Consider further evaluation with blood cultures and/or a SERGIO if clinically indicated. Mitral Valve: There is severe stenosis, with a mean gradient of 11 mmHg. Pericardium: There is a small circumferential pericardial effusion. There is no echocardiographic evidence of tamponade. There is a left p leural effusion. CT Angio Chest wo and/or w Contrast Result Date: 09/15/2025 Narrative: INDICATION: concern PE CT angiography chest with contrast. 3D Postprocessing. Comparison: None provided Findings: Mild cardiomegaly. Small pericardial effusion. The thoracic aorta is normal caliber. No acute pulmonary embolus. Markedly heterogeneous thyroid gland with multiple small nodules. Markedly dilated esophagus containing debris. No mediastinal lymphadenopathy. There are small to moderate bilateral pleural effusions. There are ground-glass and linear opacities and small foci of consolidation and volume loss within adjacent portions of the left lower lobe. Relatively mild dependent changes within the right lung. Mild bilateral apical scarring. There is a moderate amount of ascites within the visualized abdomen. There is edema of the soft tissues. Status post right shoulder replacement. No acute fracture. There is a left-sided Port-A-Cath with its tip at the cavoatrial junction. Impression: 1. There is no evidence of pulmonary artery embolism. 2. There is generalized increasedfluid status with [id number] bilateral pleural effusions, moderate ascites, a small pericardial effusion and edema of the soft tissues. 3. Opacities within the left lower lobe may be secondaryto atelectasis or pneumonia. 4. Markedly dilated esophagus containing debris. Suspect achalasia. This document has been electronically signed by: Lindsay Moura MD on 09/15/2025 17:55:20 Vascular US Duplex Lower Extremity Venous Bilateral Result Date: 09/15/2025 Narrative: INDICATION: bilateral leg pain and swelling. FINDINGS: A duplex venous ultrasound was performed of both lower extremities. The common femoral, superficial femoral and popliteal veins demonstrate color-flow with augmentation and compressibility. The visualized calf veins also demonstrate color-flow. Soft tissue edematous changes noted bilaterally. Incidental note made of small amount ofascites in the right lower quadrant. CONCLUSION: No evidence of deep vein thrombosis in either lower extremity. -------- FINAL REPORT -------- Dictated By: Keith Santo Dictated Date: 09/15/2025 15:09 ET Assigned Physician: Keith Santo Reviewed and Electronically Signed By: Keith Santo Signed Date: 09/15/2025 15:10 ET Workstation ID: [id number] Transcribed By: Self Edit Transcribed Date: 09/15/2025 15:09 ET XR Chest 2 Views Result Date: 09/15/2025 Narrative: INDICATION: Chest pain FINDINGS: Two views of the chest were obtained. Compared to multiple prior studies most recent from July 24, 2024. Lung tracey are mildly hypoinflated. Airspace disease within the left lung base likely represents atelectasis and/or infiltrate with possible small effusion. Cardiomediastinal silhouette is normal in size and shape. Diffuse thoracic aortic calcification with mild tortuosity. Osteopenia and degenerative changes with reverse total right shoulder replacement, well-positioned and unchanged. Impression: Left basilar atelectasis and/or infiltrate with small effusion suspected. -------- FINAL REPORT -------- Dictated By: Kieth Santo Dictated Date: 09/15/2025 14:24 ET Assigned Physician:Keith Santo Reviewed and Electronically Signed By: Keith Santo Signed Date: 09/15/2025 14:27 ET Workstation ID: [id number] Transcribed By: Self Edit Transcribed Date: 09/15/2025 14:24 ET Assessment/Plan: Iwona Romero is a 80 y.o. female who has a past medical history of Anemia, AVM (arteriovenous malformation), CREST (calcinosis, Raynaud's phenomenon, esophageal dysfunction, sclerodactyly, telangiectasia) (CMS/HCC V24, CMS/HCC V28), GERD (gastroesophageal reflux disease), Mitochondrial myopathies,Pulmonary fibrosis (CMS/HCC V24, CMS/HCC V28), Pulmonary HTN (CMS/HCC V24, CMS/HCC V28), Scleroderma (CMS/HCC V24, CMS/HCC V28), and Sjogren syndrome (CMS/HCC V24).. The patient was admitted to the hospital on 09/15/2025 for chest pain. She had a CT scan which revealed achalasia and concern for pneumonia. She was started on CTX and Doxy. She underwent an EGD which reveals Yumiko Esophagitis. Shehas known CREST syndrome. She was started on Fluconazole however she is on seroquel and her Qtc [id number] and hence ID was consulted . However, the pt also had a TTE on 09/17 which showed possible vegetation on aortic valve. She has not had blood C/S The ID service has been consulted for management during this patient's hospital stay. Esophageal Candidiasis Possible AV endocarditis Vanc dosing TERE WIll complete 14 days of Vy due to Qtc and Seroquel SERGIO neg, no IV Vanc or CTX needed, endocarditis ruled out HIV negative TERE resolved Recommendations: I am stopping Vanc and CTX Continue Micafungin 100 mg Q24 EOT 10/05 , please check weekly CBC and BMP and fax to my office at [phone] Isolation: None I personally spent 42 minutes in this encounter. This included performing a detailed chart review, reviewing and independently interpreting labs ordered by other providers, performing a history and physical, monitoring a drug (Vanc) for toxicity in collaboration with pharmacy, counseling this patient/family, discussing the case with the primary team , coordinating his/her/their plan of care and performing complex medical decision making. The pt has a highly complex and life threatneing infection for which I am the primary specialist involved in managing antimicrobials * Charli Kendrick RN - 09/22/2025 8:08 PM EST Goals: Clinical Goals for the Shift: Pain managmenet Identify possible barriers to meeting goals/advancing plan of care: SERGIO Stability of the patient: Moderately Stable - Low risk of patient condition declining or worsening End of Shift Summary: * Sarah Branch RN - 09/22/2025 2:40 PM EST KIKO: 09/24 Barriers: ID Consult, needs 2 days of IV anti-fungal, prolonged QTC, Cultures pending Dispo: Home with APPLICATION LEAD and [employer]- Will need ambulance ride home * Bob Brown MD - 09/22/2025 2:12 PM EST Images from the original note were not included. [facility] PROGRESS NOTE Date: 09/22/2025 Author: Bob Brown MD Patient ID: Iwona Romero is a 80 y.o. female : 1945 MR#: [id number] SUBJECTIVE Subjective Patient seen at bedside this morning. She appears stable and without any fevers or tachycardia. Blood cultures drawn yesterday was unremarkable, HIV negative. Magnesium on the lower side, will replete. TERE resolved. 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 She will require SERGIO. She remains on IV antibiotics Objective Allergy- Epinephrine, Bee venom protein (honey bee), Cyclosporine, Mushroom, and Niacin OBJECTIVE Vitals: 09/21/25 1537 09/21/25 1918 09/22/25 0304 09/22/25 0755 BP: (!) 116/47 131/57 139/67 (!) 136/45 BP Location: Left arm Left arm Left arm Left arm Patient Position: Lying Lying Lying Lying Pulse: 98 92 104 90 Resp: 18 18 18 Temp: 35.8 ??C (96.5 ??F) 36.7 ??C (98 ??F) 36.6 ??C (97.9 ??F) 36.6 ??C (97.9 ??F) TempSrc: Temporal Temporal Temporal Temporal SpO2: 96% 92% 91% Weight: 55.6 kg (122 lb 8 oz) Height: Temp (24hrs), Av.4 ??C (97.6 ??F), Min:35.8 ??C (96.5 ??F), Max:36.7 ??C (98 ??F) Physical Exam General-patient appears comfortable, no acute distress, appears chronically ill HEENT-NCAT Eyes-anicteric Heart-Normal Rate and Rhythm Respiratory-CTAB Abdomen-Soft, nontender, nondistended Extremity-no significant lower extremity edema Neurology-awake alert oriented to time, place,and person Psych- Normal Mood and affect Skin-warm and dry Lab Results: CBC BMP Results from last 7 days Lab Units 09/22/2545309/21/2551909/20/250 09/19/25 0551 WBC AUTO K/mcL 8.1 11.7* 5.4 4.8 HEMOGLOBIN g/dL 8.9* 11.3* 9.3* 8.4* HEMATOCRIT % 28.5* 37.1 31.1* 27.9* PLATELETS K/mcL 216 299 174 155 LYMPHS PCT AUTO % 5.4 5.0 6.0 6.8 MONO PCT AUTO % 9.0 7.6 7.3 9.1 EOS PCT AUTO % 1.1 0.2 8.8 7.6 Results from last 7 days Lab Units 09/22/2545309/21/2551909/20/250 09/19/25 0551 09/17/25 0545 09/16/25 0522 SODIUM mmol/L 140 142 141 142 < > 140 POTASSIUM mmol/L 4.3 4.4 4.3 4.1 < > 3.4* CHLORIDE mmol/L 110 111* 111* 110 < > 108 CO2 mmol/L 22 21 22 23 < > 26 ANION GAP 8 10 8 9 < > 6 BUN mg/dL 43* 43* 41* 41* < > 36* CREATININE mg/dL 1.06 1.26* 1.56* 1.69* < > 0.97 CALCIUM mg/dL 7.9* 8.0* 7.2* 7.1* < > 7.2* MAGNESIUM mg/dL 1.7* -- -- -- -- 1.9 PHOSPHORUS mg/dL 2.8 -- -- -- -- -- < > = values in this interval not displayed. Results from last 7 days Lab Units 09/22/25 0454 09/21/25 0520 09/20/25 0450 09/19/25 0551 09/18/25 0556 GLUCOSE mg/dL 117* 147* 136* 101* 91 Results from last 7 days Lab Units 09/15/25 1502 AST unit/L 29 ALT unit/L 15 Scheduled Medications PRN Medications IV Medications apixaban, 2.5 mg, BID ascorbic acid, 250 mg, Daily cefTRIAXone, 2 g, q24h collagenase, , Daily dorzolamide, 1 drop, TID gabapentin, 200 mg, Nightly lidocaine, 1 patch, Daily metoprolol succinate, 50 mg, Daily micafungin, 100 mg, q24h pantoprazole, 40 mg, q12h SILVANO ambrisentan, 5 mg, Daily treprostinil diolamine, 3 mg, TID polyetheylene glycol, 17 g, Nightly QUEtiapine, 25 mg, Nightly sildenafil, 20 mg, TID sodium chloride, 10 mL, BID sodium chloride, 10 mL, Once vancomycin, 1,000 mg, q24h zinc sulfate, 220 mg, Daily acetaminophen, 650 mg, q6h PRN HYDROmorphone, 0.5 mg, q3h PRN ondansetron, 4 mg, q6h PRN oxyCODONE, 5 mg, q6h PRN sodium chloride, 10 mL, PRN ASSESSMENT & PLAN Assessment/Plan Principal Problem: Fluid overload 80-year-old female with past medical history significant for recent hip replacement and rehab stay,MDS, crest syndrome was admitted with chest pain and was found to have bilateral aspiration pneumonia in setting of achalasia along with bilateral pleural effusions. She was initially started on broad-spectrum Vanco and Zosyn, Vanco discontinued with MRSA nares negative and Zosyn discontinued due to TERE. Nephrology consulted for TERE in setting of volume overload she is being treated with ceftriaxone and doxycycline. She underwent EGD on 09/20 which suggested a peristalsis and modified diet ordered as per speech. Biopsy suggested esophageal candidiasis, could not start on Diflucan with borderline QTc and interaction with Seroquel, started on micafungin. TTE concerning for aortic valve calcification versus vegetation, ID consulted. Blood cultures sent. Aortic valve vegetation -Noticed on TTE, could be calcification as well. Blood cultures sent and negative on day 1. ID consulted. -CT abdomen concerning for prior splenic infarcts. SERGIO ordered, likely tomorrow or Saturday. - Continue with ceftriaxone, vancomycin pending cultures. Esophageal candidiasis - Noticed on EGD biopsy, started on micafungin due to prolonged QTc. She will require 14 days of antifungal. Chest pain Achalasia CREST syndrome - ACS workup unremarkable and troponin trended down. EKG unremarkable. - Modified diet due to ongoing aspiration and aperistalsis. EGD 09/20 consistent with aperistalsis, recommended patient to stay upright at all times including while at sleeping. -Candidiasis treatment as above. Bilateral aspiration pneumonia - Insetting of the peristalsis, completed treatment of doxycycline and ceftriaxone. TERE- resolved - status post IV Lasix. Continue to monitor. Appreciate nephrology recommendations. Follow-up on renal ultrasound. Chronic conditions: -Coccyx wound: Wound care, as needed oxycodone. - Pulmonary arterial hypertension: Sildenafil, letaris - MDS: Outpatient oncology follow-up. -A-fib: Continue with [facility] reduced dose Eliquis and Toprol 50 mg daily. VTE Prophylaxis: SCD Diet: Soft and bite sized Resuscitation: Full code Discharge barrier- SERGIO All labs, imaging, relevant history personally reviewed by me. Please be aware that the above note was completed using voice recognition software. If you have anyquestions please contact the author of this note for clarification. * Lois Pacheco MD - 09/22/2025 2:06 PM EST Iwona Romero is here for { Chest Pain (Sternal chest pain x1 that is resolved) Subjective Complains of pain everywhere including her chest where the telemetry stickers are, her back and herlegs. Very upset that she has stay in the hospital. Review of Systems Review of Systems Constitutional: Negative. HENT: Negative. Respiratory: Negative. Cardiovascular: Positive for chest pain. Gastrointestinal: Negative. Genitourinary: Negative. Musculoskeletal: Positive for arthralgias. Skin: Positive for wound. Neurological: Negative. Physical Examination: Vitals: Visit Vitals BP (!) 136/45 (BP Location: Left arm, Patient Position: Lying) Pulse 90 Temp 36.6 ??C (97.9 ??F) (Temporal) Resp 18 Physical Exam Vitals reviewed. Constitutional: Appearance: Normal appearance. HENT: Head: Normocephalic and atraumatic. Eyes: General: No scleral icterus. Cardiovascular: Rate and Rhythm: Normal rate and regular rhythm. Heart sounds: No murmur heard. No friction rub. No gallop. Comments: Port in place Pulmonary: Effort: No respiratory distress. Breath sounds: No stridor. No wheezing or rhonchi. Abdominal: General: There is no distension. Palpations: There is no mass. Tenderness: There is no abdominal tenderness. There is no guarding or rebound. Hernia: No hernia is present. Skin: Findings: No bruising or erythema. Neurological: Mental Status: She is alert. Objective Recent Lab Results: Lab Results Component Value Date WBC 8.1 09/22/2025 RBC 2.80 (L) 09/22/2025 HGB 8.9 (L) 09/22/2025 HCT 28.5 (L) 09/22/2025 MCV 100.4 (H) 09/22/2025 MCHC 31.2 (L) 09/22/2025 RDW 18.8 (H) 09/22/2025 PLT 216 09/22/2025 MPV 10.2 09/22/2025 NRBC 0.0 09/22/2025 DIFF Lab Results Component Value Date LYMPHOPCT 5.4 09/22/2025 NEUTROABS 6.76 09/22/2025 LYMPHSABS 0.44 (L) 09/22/2025 MONOABS 0.73 09/22/2025 EOSABS 0.09 09/22/2025 BASOSABS 0.03 09/22/2025 IMMGRANABS 0.07 (H) 09/22/2025 RETIC No results found for: RETIC , RETICCTPCT Lab Results Component Value Date BLOODCX Culture in progress 09/21/2025 BLOODCX Culture in progress 09/21/2025 MRSA Not Detected 09/15/2025 Recent Results (from the past week) MRSA molecular study Collection Time: 09/15/25 8:10 PM Specimen: Nares; Swab Result Value Ref Range MRSA Screen PCR Not Detected Not Detected Blood Culture, Peripheral Draw #1 Collection Time: 09/21/25 2:35 PM Specimen: Blood, Venous Result Value Ref Range Culture, Blood Culture in progress Blood Culture, Peripheral Draw #2 Collection Time: 09/21/25 2:50 PM Specimen: Blood, Venous Result Value Ref Range Culture, Blood Culture in progress Recent Imaging Findings: CT Abdomen Pelvis w Contrast Result Date: 09/22/2025 Narrative: INDICATION: Aortic vegetation, rule out septic emboli TECHNIQUE: CT scan of the abdomen and pelvis obtained with a total of 90 cc of Isovue-370 administered intravenously without incident.Oral contrast was not administered. Dose reduction technique: ASIR (Adaptive statistical iterative reconstruction) and/or AEC (automated exposure control) Dose: total exam DLP 3666.80 mGY per cm COMPARISON: August 27, 2023 FINDINGS: Partially imaged small right and moderate left pleural effusion with associated atelectasis. Air-fluid level within distended distal esophagus. Bony structures demonstrate osteopenia and degenerative changes with posterior lumbar fusion at the L4-L5. Well-positioned left hip replacement. Cirrhotic liver morphology. Screening, adrenal glands and kidneys are withinnormal limits. Contracted gallbladder with small calcified gallstones. Spleen demonstrates some small peripheral low-attenuation regions however these are also noted on the prior study and may represent sequelae of prior infarcts. New small acute infarcts structures not excluded. Spleen is also overall decreased in size from the prior study. Unremarkable. Small bowel loops are normal in course and caliber without wall thickening or dilatation. Terminal ileum unremarkable. Normal appendix. Fluidattenuation noted: With patent colostomy left lower quadrant. Small to moderate amount of diffuse simple appearing ascites. No free air. Urinary bladder normal. Uterus unremarkable and unchanged. No adnexal masses. Diffuse calcification noted along the visualized thoracoabdominal aorta and iliac vessels. 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 Impression: Low-attenuation peripheral foci within the spleen 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 Cirrhotic liver morphology with small to moderatediffuse ascites suggestive of portal hypertension. Interval improvement of splenomegaly. -------- FINAL REPORT -------- Dictated By: Keith Santo Dictated Date: 09/22/2025 11:50 ET Assigned Physician: Keith Santo Reviewed and Electronically Signed By: Keith Santo Signed Date: 09/22/2025 12:12 ET Workstation ID: [id number] Transcribed By: Self Edit Transcribed Date: 09/22/2025 11:[address] Head wo and w Contrast Result Date: 09/22/2025 Narrative: INDICATION: Concern for septic emboli with aortic vegetation. Patient cannot tolerate MRI scanning. FINDINGS: Axial images were obtained from the skull base to the vertex with and without contrast enhancement. A total of 90 mL of Isovue-370 administered intravenously without incident. Compared to noncontrast study from August 12, 2015. Dose reduction technique: ASIR (Adaptive statistical iterative reconstruction) Dose: total exam DLP 3666.80 mGY per cm There is no evidence of acute intracranial hemorrhage, midline shift or mass-effect. The ventricles, sulci, sylvian fissures and basilar cisterns are symmetrically enlarged. There are no abnormal intra or extra-axial fluid collections. Mild periventricular white matter changes. No abnormal enhancement noted. Patent dural sinuses. The visualized bony structures and soft tissues are unremarkable. Visualized portions of the paranasal sinuses are clear. Impression: No evidence of acute intracranial process. No evidence of abnormal enhancement. -------- FINAL REPORT -------- Dictated By: Keith Santo Dictated Date: 09/22/2025 11:29 ET Assigned Physician: Keith Santo Reviewed and Electronically Signed By: Keith Santo Signed Date: 09/22/2025 11:32 ET Workstation ID: [id number] Transcribed By: Self Edit Transcribed Date: 09/22/2025 11:29 ET EGD Anesthesia - MAC; [facility] ENDOSCOPY Result Date: 09/20/2025 Narrative: [facility] GI Patient Name: Iwona Romero Procedure Date: 09/20/2025 7:54 AM Date of : 1945 Age: 80 Gender: Female Note Status: Finalized Attending MD: Caitlin Birmingham MD, Procedure Date No Time: 09/20/2025 Procedure: UpperGI endoscopy Indications: Abnormal CT of the GI tract, Patient with dilated debris filled esophaguson CT scan. Patient has a histry of CREST syndrome and recurrent aspiration pneumonia. Providers: Caitlin Birmingham MD Referring MD: Caitlin Birmingham MD Medicines: Propofol per Anesthesia Complications: No immediate complications. Estimated Blood Loss: Estimated blood loss: none. Procedure: Pre-Anesthesia Assessment: - ASA Grade Assessment: IV - A patient with severe systemic disease that is aconstant threat to life. After obtaining informed consent, the endoscope was passed under direct vision. Throughout the procedure, the patient's blood pressure, pulse, and oxygen saturations were mon itored continuously.The Endoscope was introduced through the mouth, and advanced to the second partof duodenum. The upper GI endoscopy was accomplished without difficulty. The patient tolerated the procedure well. Findings: The lumen of the esophagus was moderately dilated. Abnormal motility was noted in the esophagus. The cricopharyngeus was normal. There is a decrease in motility of the esophag eal body. The distal esophagus/lower esophageal sphincter is open. Diffuse mucosal changes characterized by adherent debris were found in the mid esophagus and in the distal esophagus. Biopsies weretaken with a cold forceps for histology. A small hiatal hernia was present. No gross lesions were noted in the entire examined stomach. The examined duodenum was normal. Procedure Code(s): --- Professional --- 29408, Esophagogastroduodenoscopy, flexible, transoral; with biopsy, single or multiple Diagnosis Code(s): --- Professional --- K22.4, Dyskinesia of esophagus K44.9, Diaphragmatic hernia without obstruction or gangrene R93.3, Abnormal findings on diagnostic imaging of other parts of diges tive tract K22.89, Other specified disease of esophagus CPT copyright 2020 [employer]. All rights reserved. The codes documented in this report are preliminary and upon public speaking coach reviewmay be revised to meet current compliance requirements. Caitlin Birmingham MD 09/20/2025 8:14:33 AM This report has been signed electronically.Caitlin Birmingham MD Number of Addenda: 0Note Initiated On: 09/20/2025 7:54 AM Scope In: Scope Out: Endoscopy Department at [facility] - [address] [place] [id number] Impression: - Dilation in the entire esophagus. - Abnormal esophageal motility, consistent with aperistalsis. - Adherent debris mucosa in the esophagus. - Small hiatal hernia. - No gross lesions in the entire stomach. - Normal examined duodenum. - No specimens collected. Recommendation: - Await pathology results. - Findings consistent with poor/absent motility of the esophagus. Would recommend always staying upright as much as posible- including sleeping. Small meals with frequent liquids. Transthoracic echocardiogram (TTE) complete with PRN contrast, bubble, strain, and 3D order panel Result Date: 09/18/2025 Narrative: Technically difficult study. Left Ventricle: There is severe concentric hypertrophy. Systolic function is hyperdynamic with an ejection fraction over 70%. LV global longitudal strain is normal. Global longitudinal strain is -22.3%. There are no regional LV wall motion abnormalities. Left ventricle: There is moderate mid-cavity gradient of 52 mmHg at rest with no significant change withValsalva. Aortic Valve: There is moderate stenosis. Aortic valve: In some of the parasternal views,there is evidence of an echodensity associated to the LVOT side of the aortic valve. This could repr esent a calcification. However, a vegetation cannot be completely ruled out with the available images. Consider further evaluation with blood cultures and/or a SERGIO if clinically indicated. Mitral Valve: There is severe stenosis, with a mean gradient of 11 mmHg. Pericardium: There is a small circumferential pericardial effusion. There is no echocardiographic evidence of tamponade. There is a left p leural effusion. CT Angio Chest wo and/or w Contrast Result Date: 09/15/2025 Narrative: INDICATION: concern PE CT angiography chest with contrast. 3D Postprocessing. Comparison: None provided Findings: Mild cardiomegaly. Small pericardial effusion. The thoracic aorta is normal caliber. No acute pulmonary embolus. Markedly heterogeneous thyroid gland with multiple small nodules. Markedly dilated esophagus containing debris. No mediastinal lymphadenopathy. There are small to moderate bilateral pleural effusions. There are ground-glass and linear opacities and small foci of consolidation and volume loss within adjacent portions of the left lower lobe. Relatively mild dependent changes within the right lung. Mild bilateral apical scarring. There is a moderate amount of ascites within the visualized abdomen. There is edema of the soft tissues. Status post right shoulder replacement. No acute fracture. There is a left-sided Port-A-Cath with its tip at the cavoatrial junction. Impression: 1. There is no evidence of pulmonary artery embolism. 2. There is generalized increasedfluid status with [id number] bilateral pleural effusions, moderate ascites, a small pericardial effusion and edema of the soft tissues. 3. Opacities within the left lower lobe may be secondaryto atelectasis or pneumonia. 4. Markedly dilated esophagus containing debris. Suspect achalasia. This document has been electronically signed by: Lindsay Moura MD on 09/15/2025 17:55:20 Vascular US Duplex Lower Extremity Venous Bilateral Result Date: 09/15/2025 Narrative: INDICATION: bilateral leg pain and swelling. FINDINGS: A duplex venous ultrasound was performed of both lower extremities. The common femoral, superficial femoral and popliteal veins demonstrate color-flow with augmentation and compressibility. The visualized calf veins also demonstrate color-flow. Soft tissue edematous changes noted bilaterally. Incidental note made of small amount ofascites in the right lower quadrant. CONCLUSION: No evidence of deep vein thrombosis in either lower extremity. -------- FINAL REPORT -------- Dictated By: Keith Santo Dictated Date: 09/15/2025 15:09 ET Assigned Physician: Keith Santo Reviewed and Electronically Signed By: Keith Santo Signed Date: 09/15/2025 15:10 ET Workstation ID: [id number] Transcribed By: Self Edit Transcribed Date: 09/15/2025 15:09 ET XR Chest 2 Views Result Date: 09/15/2025 Narrative: INDICATION: Chest pain FINDINGS: Two views of the chest were obtained. Compared to multiple prior studies most recent from July 24, 2024. Lung tracey are mildly hypoinflated. Airspace disease within the left lung base likely represents atelectasis and/or infiltrate with possible small effusion. Cardiomediastinal silhouette is normal in size and shape. Diffuse thoracic aortic calcification with mild tortuosity. Osteopenia and degenerative changes with reverse total right shoulder replacement, well-positioned and unchanged. Impression: Left basilar atelectasis and/or infiltrate with small effusion suspected. -------- FINAL REPORT -------- Dictated By: Keith Santo Dictated Date: 09/15/2025 14:24 ET Assigned Physician:Keith Santo Reviewed and Electronically Signed By: Keith Santo Signed Date: 09/15/2025 14:27 ET Workstation ID: [id number] Transcribed By: Self Edit Transcribed Date: 09/15/2025 14:24 ET Assessment/Plan: Iwona Romero is a 80 y.o. female who has a past medical history of Anemia, AVM (arteriovenous malformation), CREST (calcinosis, Raynaud's phenomenon, esophageal dysfunction, sclerodactyly, telangiectasia) (CMS/HCC V24, CMS/HCC V28), GERD (gastroesophageal reflux disease), Mitochondrial myopathies,Pulmonary fibrosis (CMS/HCC V24, CMS/HCC V28), Pulmonary HTN (CMS/HCC V24, CMS/HCC V28), Scleroderma (CMS/HCC V24, CMS/HCC V28), and Sjogren syndrome (CMS/HCC V24).. The patient was admitted to the hospital on 09/15/2025 for chest pain. She had a CT scan which revealed achalasia and concern for pneumonia. She was started on CTX and Doxy. She underwent an EGD which reveals Yumiko Esophagitis. Shehas known CREST syndrome. She was started on Fluconazole however she is on seroquel and her Qtc gli162 and hence ID was consulted . However, the pt also had a TTE on 09/17 which showed possible vegetation on aortic valve. She has not had blood C/S The ID service has been consulted for management during this patient's hospital stay. Esophageal Candidiasis Possible AV endocarditis Vanc dosing TERE I am switching the pt to IV Micafungin for the Candidiasis due to borderline Qtc and interaction with Seroquel Will need for 14 days HIV negative Also, TTE showed possible AV vegetation vs calcification, no cultures taken, needs to be investigated, cultures negative for [address] abdomen revealed evidence of splenic infarcts, this could be septic emboli, patient warrants a SERGIO Patient now meets 1 major and 1 minor clinical criteria for endocarditis has TERE, will adjust Abx as needed Vancomycin level pending Recommendations: Continue vanc goal 15-20 plus CTX 2 g Q24 I have ordered blood C/S Recommend SERGIO I am starting the pt on IV Micafungin for 2 weeks If endocarditis confirmed, port should be removed Isolation: None I personally spent 41 minutes in this encounter. This included performing a detailed chart review, reviewing and independently interpreting labs ordered by other providers, performing a history and physical, monitoring a drug (Vanc) for toxicity in collaboration with pharmacy, counseling this patient/family, discussing the case with the primary team , coordinating his/her/their plan of care and performing complex medical decision making. The pt has a highly complex and life threatneing infection for which I am the primary specialist involved in managing antimicrobials * Franki Saavedra MD - 09/22/2025 11:37 AM EST Images from the original note were not included. Progress Note CHIEF COMPLAINT F/u SUBJECTIVE Patient seen and examined Patient complains of retrosternal pain Had EGD today MEDICAL HISTORY Medical History[1] MEDICATIONS MEDSSCHEDULED[2] MEDSPRN[3] MEDSCONTINUOUS[4] OBJECTIVE Vital signs in last 24 hours: Visit Vitals BP (!) 136/45 (BP Location: Left arm, Patient Position: Lying) Pulse 90 Temp 36.6 ??C (97.9 ??F) (Temporal) Resp 18 Intake/Output last 24 hours: Intake/Output Summary (Last 24 hours) at 09/22/2025 1137 Last data filed at 09/22/2025 0304 Gross per 24 hour Intake 670 ml Output 150 ml Net 520 ml Weights: Admission Weight: Weight: 47.6 kg (105 lb) Wt Readings from Last 3 Encounters: 09/22/25 55.6 kg (122 lb 8 oz) 05/24/25 50.8 kg (112 lb) 04/14/25 49.9 kg (110 lb) Physical Exam: General: No acute distress HEENT: Normocephalic, atraumatic, anicteric Cardiovascular: S1 S2 normal Respiratory: unlabored Gl: soft non-distended Extremities: 1+ edema left thigh area Neurological: Alert Integumentary: no rash Psych: Calm, cooperative LABS Results from last 7 days Lab Units 09/22/25 0454 09/21/25 0520 09/20/25 0450 WBC AUTO K/mcL 8.1 11.7* 5.4 HEMOGLOBIN g/dL 8.9* 11.3* 9.3* HEMATOCRIT % 28.5* 37.1 31.1* MCV FL 100.4* 100.0* 103.0* PLATELETS K/mcL 216 299 174 Results from last 7 days Lab Units 09/22/25 0454 09/21/25 0520 09/20/25 0450 CREATININE mg/dL 1.06 1.26* 1.56* BUN mg/dL 43* 43* 41* SODIUM mmol/L 140 142 141 POTASSIUM mmol/L 4.3 4.4 4.3 CHLORIDE mmol/L 110 111* 111* CO2 mmol/L 22 21 22 Phosphorus Date Value Ref Range Status 09/22/2025 2.8 2.5 - 4.5 mg/dL Final Iron Date Value Ref Range Status 06/07/2025 33 (L) 40 - 150 mcg/dL Final 05/24/2025 58 40 - 150 mcg/dL Final TIBC Date Value Ref Range Status 06/07/2025 385 250 - 450 mcg/dL Final 05/24/2025 371 250 - 450 mcg/dL Final Ferritin Date Value Ref Range Status 06/07/2025 12 8 - 252 ng/mL Final 05/24/2025 16 8 - 252 ng/mL Final No results found for: COLORUA , CLARITYUA , SPECGRAVUA , PHUA , PROTUA , GLUCOSEUA , KETONESUA , BILIRUBINUA , BLOODUA , UROBILINOGUA , NITRITEUA IMPRESSION and PLAN Patient is 80 year old female with history of recent left hip replacement at [facility] ( needing rehab stay for 1 month), CREST syndrome with pulmonary hypertension, aplastic anemia, scleroderma, myeloid dysplasia presented with chest pain Routine BP 100-120 On Medication for pulmonary hypertension at home (sildenafil / ambrisentan ) Ct with contrast on 09/15 Echo 09/17: IVC normal size BP has been on low side 90 systolic Having high bladder scan 300s Baseline 0.96 ( admission) Recs: Creatinine has stabilized and is down to 1.26> 1.06 Tere differential: Pre-renal/ ATN from low BP/ contrast/ high PVR Her BP was never high, unlikely scleroderma renal crisis ( although there cases of normotensive renal crisis) No need for IV fluids No need for diuretics at this juncture US kidney done on Saturday. Report is still pending [id number] final report Patient also had CT of the abdomen with contrast today. 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 (calcinosis, Raynaud's phenomenon, esophageal dysfunction, sclerodactyly, telangiectasia) (CMS/HCC V24, CMS/HCC V28) GERD (gastroesophageal reflux disease) Mitochondrial myopathies Pulmonary fibrosis (CMS/HCC V24, CMS/HCC V28) Pulmonary HTN (CMS/HCC V24, CMS/HCC V28) Scleroderma (CMS/HCC V24, CMS/HCC V28) Sjogren syndrome (CMS/HCC V24) [2] apixaban, 2.5 mg, oral, BID ascorbic acid, 250 mg, oral, Daily cefTRIAXone, 2 g, intravenous, q24h collagenase, , Topical, Daily dorzolamide, 1 drop, Both Eyes, TID gabapentin, 200 mg, oral, Nightly lidocaine, 1 patch, Topical, Daily metoprolol succinate, 50 mg, oral, Daily micafungin, 100 mg, intravenous, q24h pantoprazole, 40 mg, intravenous, q12h SILVANO ambrisentan, 5 mg, oral, Daily treprostinil diolamine, 3 mg, oral, TID polyetheylene glycol, 17 g, oral, Nightly QUEtiapine, 25 mg, oral, Nightly sildenafil, 20 mg, oral, TID sodium chloride, 10 mL, intravenous, BID sodium chloride, 10 mL, intravenous, Once vancomycin, 1,000 mg, intravenous, q24h zinc sulfate, 220 mg, oral, Daily [3] PRN medications: acetaminophen, HYDROmorphone, ondansetron, oxyCODONE, [COMPLETED] Insert peripheral IV AND Maintain IV access AND [COMPLETED] Saline lock IV AND sodium chloride AND sodium chloride [4] * Charli Kendrick RN - 09/21/2025 5:57 PM EST Goals: Clinical Goals for the Shift: Pain managmenet Identify possible barriers to meeting goals/advancing plan of care: IV abx, blood cultures Stability of the patient: Moderately Unstable - Medium risk of patient condition declining or worsening End of Shift Summary: Patient in significant amount of pain throughout day and could not get comfortable. Patient repositioned multiple times an hour. Sacral wound dressing changed. Patient worked with PT and was up to chair for about 90 mins. Seen by nephrology and infectious disease. Patient started on micafungin, vancomycin and ceftriaxone dose increased. Patient had blood cultures obtained. Vitals stable. * Renetta Thorne PharmD - 09/21/2025 3:48 PM EST Initial Pharmacy Vancomycin Dosing Consultation Consult ordering provider: Dr. Losi Pacheco MD 80 y.o. female is being started on vancomycin bacteremia for 14 days. Provider has specified a goal trough of 15-20. Relevant data Height: 1.6 m (63 ) Weight: 55.9 kg (123 lb 4.8 oz) Temp Readings from Last 3 Encounters: 09/21/25 35.8 ??C (96.5 ??F) (Temporal) 08/17/25 37.2 ??C (99 ??F) 08/09/25 37.6 ??C (99.7 ??F) (Temporal) WBC Date Value Ref Range Status 09/21/2025 11.7 (H) 4.8 - 10.8 K/mcL Final 09/20/2025 5.4 4.8 - 10.8 K/mcL Final 09/19/2025 4.8 4.8 - 10.8 K/mcL Final Creatinine Date Value Ref Range Status 09/21/2025 1.26 (H) 0.50 - 1.10 mg/dL Final 09/20/2025 1.56 (H) 0.50 - 1.10 mg/dL Final 09/19/2025 1.69 (H) 0.50 - 1.10 mg/dL Final Estimated Creatinine Clearance: 29.5 mL/min (A) (by C-G formula based on SCr of 1.26 mg/dL (H)). mL/min Cockcroft-Gault Recent Results (from the past week) MRSA molecular study Collection Time: 09/15/25 8:10 PM Specimen: Nares; Swab Result Value Ref Range MRSA Screen PCR Not Detected Not Detected Blood Culture, Peripheral Draw #1 Collection Time: 09/21/25 2:35 PM Specimen: Blood, Venous Result Value Ref Range Culture, Blood Culture in progress Blood Culture, Peripheral Draw #2 Collection Time: 09/21/25 2:50 PM Specimen: Blood, Venous Result Value Ref Range Culture, Blood Culture in progress Patient is also receiving the following antibiotic(s): Ceftriaxone Plan Pharmacy will initiate a maintenance dose of 1000 mg every 24 hours starting on 09/21/2025 at 16:00. Per protocol, therapy is expected to last more than 5 days and therefore a trough indicated. A trough has been ordered for 09/23/2025 at 15:00 prior to 3rd dose due on 09/23/2025 at 16:00. Therapy is planned to end on 10/05/2025 at this time. Will continue to monitor and recommend changes as necessary. Renetta Thorne PharmD 09/21/25 3:46 PM EST * Prabha Hancock, MOHAMUD - 09/21/2025 3:28 PM EST 09/21/2025 @ 3:28 PM EST Nutrition Follow Up Note Reason for RD Intervention: Assessment Type: Follow-up Reason for Assessment: Wound, Decreased Intake, Pressure Injury Anthropometrics: Height: 160 cm (63 ) Weight: 55.9 kg (123 lb 4.8 oz) BMI (Calculated): 21.8 BMI Class: Underweight IBW (lbs): 115 Recent Weight Change: Yes Other (Comment): 12% weight loss over past year, 19% over uncertain duration Current Diet and Supplements: Dietary Orders (From admission, onward) Start Ordered 09/20/25 1044 Adult diet [facility]; Modified Consistency Options for Liquidsand Solids; IDDSI Level 6 Soft & Bite Sized Diet effective now Question Answer Comment Location [facility] Diet Type (req) Modified Consistency Options for Liquids and Solids Modified Consistency Options for Liquids and Solids IDDSI Level 6 Soft & Bite Sized 09/20/25 1045 09/17/25 1511 Dietary nutrition supplements Three times daily (TID); [facility]; Standard Oral Supplement Continuous Comments: Chocolate ensure with meals Question Answer Comment Frequency Three times daily (TID) Location [facility] Supplements Standard Oral Supplement 09/17/25 1511 History of presenting illness: Patient is a 80 y.o. female with a history of Medical History[1] Surgical History[2] admitted 09/15/2025 with Fluid overload. Food/Nutrition History: Previous Diet / Nutrition Education / Counseling: Patient with decreased po intake over past year. Patient fell at home 1 year ago and had hip fracture repair. Patient continues to have hip pain and required a [place] [facility] [place] Patient had been experiencing early satiety during this time, feeling full after only a few bites. She has been trying to maintain her weight by eating high calorie foods like peanut butter and Ensure supplements. She estimates 10-15 lb weight loss over the past year, but states she was 130 lbs at one point before her initial fall. Patient states she had been able to consume regular texture foods. Her ostomy output has been coretta l.Allergy to niacin noted, patient not able to recall dose which caused skin reaction. She currently takes a B complex at home but does not know the brand or dose or if it contains niacin. she does not take a multivitamin. Weight History: Wt Readings from Last 10 Encounters: 09/21/25 55.9 kg (123 lb 4.8 oz) 05/24/25 50.8 kg (112 lb) 04/14/25 49.9 kg (110 lb) 11/05/24 48.2 kg (106 lb 3.2 oz) 04/10/24 49.4 kg (109 lb) 04/10/24 49.4 kg (109 lb) 04/10/24 49.4 kg (109 lb) 04/10/24 49.4 kg (109 lb) 11/11/23 47.2 kg (104 lb) 08/06/23 51 kg (112 lb 8 oz) Subjective Assessment: Poor po continues. Pt working with [employer], recommending IDDSI 6, with IDDSI 5 meats, extra sauces and gravies. Pt underwent EGD 09/20 was found to have peristalsis. Wound care following pt, last assessment 09/17. Weights include: 55.9 kg 09/21 bed scale, 56.6 kg 12/1 bed scale, 54.9 kg 09/19 bed scale, 47.6 kg stated on admission. Last BM 09/18. Nutrition-Related Lab Values: Results from last 7 days Lab Units 09/21/25 0520 09/17/25 0545 09/16/25 0522 09/15/25 1502 SODIUM mmol/L 142 < > 140 138 POTASSIUM mmol/L 4.4 < > 3.4* 3.9 MAGNESIUM mg/dL -- -- 1.9 -- CHLORIDE mmol/L 111* < > 108 107 CO2 mmol/L 21 < > 26 24 BUN mg/dL 43* < > 36* 40* CREATININE mg/dL 1.26* < > 0.97 0.93 EGFR mL/min/1.73m2 43* < > 59* 62 CALCIUM mg/dL 8.0* < > 7.2* 7.6* BILIRUBIN TOTAL mg/dL -- -- -- 0.4 ALK PHOS unit/L -- -- -- 640* ALT unit/L -- -- -- 15 AST unit/L -- -- -- 29 GLUCOSE mg/dL 147* < > 106* 95 WBC AUTO K/mcL 11.7* < > 4.1* 5.1 < > = values in this interval not displayed. No results found for: LIPASE Medications: MEDSSCHEDULED[3] CONTINUOUS: MEDSCONTINUOUS[4] MEDSPRN[5] Food/Nutrition-Current Status: Intake Type: P.O. Current Diet Status: Appropriate Appetite: Poor Intake Amount (%): 25-50% (38% average of the 4 recorded meals. RN reports pt is not eating much atall) Intake Assessment: Inadequate Main IVF: None Main IVF Rate (mL/hr): 0 Propofol?: No Nutrition Focused Physical Findings: Overall Appearance: staff in with pt, unable to interview Digestive System (Mouth to Rectum): Appetite change, Early satiety Nerves and Cognition: Oriented, Alert Skin: sacrum pressure injury unstageable, buttock pressure injury stage 2, left heel DTI- wound care following Loss of Fat Location: Orbital, Triceps, Ribs Loss of Fat Amt-Orbital: Moderate Loss of Fat Amt-Triceps: Moderate Loss of Fat Amt-Ribs: Moderate Loss of Muscle Location: Temples, Clavicle, Shoulders, Interosseous Loss of Muscle Amt-Temples: Moderate Loss of Muscle Amt-Clavicle: Severe Loss of Muscle Amt-Shoulders: Severe Loss of Muscle Amt-Inter Musc: Severe Nutrition Diagnosis: Code Type: Moderate-Chronic (E44.0) Moderate-Chronic Criteria: Energy Intake <75%/1mo, Mild Body Fat Depletion, Mild Muscle Mass Depletion Status: Other (Comment) (ongoing) Diagnosis: Malnutrition Etiology: Physiologic causes Symptoms: moderate to severe muscle and fat depletion, meeting <75% estimated needs for > 1 month Additional Nutrition Diagnosis?: Yes Status: No improvement Diagnosis: Altered GI Function Etiology: Compromised GI function Symptoms: early satiety, decreased PO intaek, dilated esophagus with residual food present Nutrition Interventions: (continue vitain C, Zinc. will not give multivitamin due to niacin allergy.) Medical Food Supplement(s): Ensure Plus TID Goals: Patient will initially consume at least 50% of meals. , Patient will consume ONS., Monitor/control glucose levels, Improvement in renal labs., Electrolytes within normal range., Minimize risk of refeeding syndrome., Maintain weight., Fluid accumulation resolved., Stooling appropriately., and Wound healing progress. Coordination of Patient Care: Discussed with RN via [employer] Secure Chat/Haiku. Monitoring/Evaluation: Food Intake, Medical Food Supp/Oral Nutrition Supp, Weight, Gastrointestinal Profile, Other (Comment) (wound healing) Follow Up: Nutrition Priority Level: High RD remains available and will continue to follow. 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 (calcinosis, Raynaud's phenomenon, esophageal dysfunction, sclerodactyly, telangiectasia) (CMS/HCC V24, CMS/HCC V28) GERD (gastroesophageal reflux disease) Mitochondrial myopathies Pulmonary fibrosis (CMS/HCC V24, CMS/HCC V28) Pulmonary HTN (CMS/HCC V24, CMS/HCC V28) Scleroderma (CMS/HCC V24, CMS/HCC V28) Sjogren syndrome (CMS/HCC V24) [2] Past Surgical History: Procedure Laterality Date COLONOSCOPY COLOSTOMY ESOPHAGOGASTRODUODENOSCOPY FOOT SURGERY Bilateral BONIONS HIP SURGERY Left 06/11/[address] HYSTERECTOMY SHOULDER SURGERY Right [3] apixaban, 2.5 mg, oral, BID ascorbic acid, 250 mg, oral, Daily cefTRIAXone, 2 g, intravenous, q24h collagenase, , Topical, Daily dorzolamide, 1 drop, Both Eyes, TID doxycycline, 100 mg, intravenous, q12h gabapentin, 200 mg, oral, Nightly lidocaine, 1 patch, Topical, Daily metoprolol succinate, 50 mg, oral, Daily micafungin, 100 mg, intravenous, q24h pantoprazole, 40 mg, intravenous, q12h SILVANO ambrisentan, 5 mg, oral, Daily treprostinil diolamine, 3 mg, oral, TID polyetheylene glycol, 17 g, oral, Nightly QUEtiapine, 25 mg, oral, Nightly sildenafil, 20 mg, oral, TID sodium chloride, 10 mL, intravenous, BID zinc sulfate, 220 mg, oral, Daily [4] [5] PRN medications: acetaminophen, HYDROmorphone, ondansetron, oxyCODONE, [COMPLETED] Insert peripheral IV AND Maintain IV access AND [COMPLETED] Saline lock IV AND sodium chloride AND sodium chloride * Bob Brown MD - 09/21/2025 12:40 PM EST Images from the original note were not included. [facility] PROGRESS NOTE Date: 09/21/2025 Author: Bob Brown MD Patient ID: Iwona Romero is a 80 y.o. female : 1945 MR#: [id number] SUBJECTIVE Subjective Patient seen at bedside this morning. She has multiple complaints including back pain, pain in her spine, abdominal pain, chest pain, pain at the site of telemetry, feeling cold and requests that shewants to go home. Patient is medically close to discharge but esophageal biopsy with Yumiko esophagitis and with her borderline QTc, will require ID consult. Overnight, she had an episode of tachycardia and home metoprolol was started at a lower dose of 50 mg, her heart rate now seems to be better. Attempted to call son for update, could not reach him. Objective Allergy- Epinephrine, Bee venom protein (honey bee), Cyclosporine, Mushroom, and Niacin OBJECTIVE Vitals: 12/11/14 195009/20/252 09/21/25 0315 09/21/25 0807 BP: (!) 146/72 (!) 106/44 115/55 (!) 101/42 BP Location: Right arm Right arm Right arm Right arm Patient Position: Lying Lying Lying Lying Pulse: (!) 114 (!) 119 104 97 Resp: 16 16 16 16 Temp: 36.5 ??C (97.7 ??F) 36.7 ??C (98.1 ??F) 36.2 ??C (97.2 ??F) 36.6 ??C (97.8 ??F) TempSrc: Temporal Temporal Temporal Temporal SpO2: 93% 92% 91% Weight: 55.9 kg (123 lb 4.8 oz) Height: Temp (24hrs), Av.6 ??C (97.8 ??F), Min:36.2 ??C (97.2 ??F), Max:36.8 ??C (98.2 ??F) Physical Exam General-patient appears comfortable, no acute distress, appears chronically ill HEENT-NCAT Eyes-anicteric Heart-Normal Rate and Rhythm Respiratory-CTAB Abdomen-Soft, nontender, nondistended Extremity-no significant lower extremity edema Neurology-awake alert oriented to time, place,and person Psych- Normal Mood and affect Skin-warm and dry Lab Results: CBC BMP Results from last 7 days Lab Units 09/21/25 0509/20/2544909/19/25 0551 09/18/25 0556 WBC AUTO K/mcL 11.7* 5.4 4.8 6.0 HEMOGLOBIN g/dL 11.3* 9.3* 8.4* 9.0* HEMATOCRIT % 37.1 31.1* 27.9* 29.1* PLATELETS K/mcL 299 174 155 199 LYMPHS PCT AUTO % 5.0 6.0 6.8 6.1 MONO PCT AUTO % 7.6 7.3 9.1 7.9 EOS PCT AUTO % 0.2 8.8 7.6 3.9 Results from last 7 days Lab Units 09/21/25 0520 09/20/25 0450 09/19/25 0551 09/18/25 0556 09/17/25 0545 09/16/25 0522 SODIUM mmol/L 142 141 142 142 < > 140 POTASSIUM mmol/L 4.4 4.3 4.1 3.3* < > 3.4* CHLORIDE mmol/L 111* 111* 110 109 < > 108 CO2 mmol/L 21 22 23 24 < > 26 ANION GAP 10 8 9 9 < > 6 BUN mg/dL 43* 41* 41* 38* < > 36* CREATININE mg/dL 1.26* 1.56* 1.69* 1.38* < > 0.97 CALCIUM mg/dL 8.0* 7.2* 7.1* 7.5* < > 7.2* MAGNESIUM mg/dL -- -- -- -- -- 1.9 < > = values in this interval not displayed. Results from last 7 days Lab Units 09/21/25 0520 09/20/25 0450 09/19/25 0551 09/18/25 0556 09/17/25 0545 GLUCOSE mg/dL 147* 136* 101* 91 113* Results from last 7 days Lab Units 09/15/25 1502 AST unit/L 29 ALT unit/L 15 Scheduled Medications PRN Medications IV Medications apixaban, 2.5 mg, BID ascorbic acid, 250 mg, Daily collagenase, , Daily dorzolamide, 1 drop, TID doxycycline, 100 mg, q12h fluconazole, 400 mg, q24h SILVANO gabapentin, 200 mg, Nightly lidocaine, 1 patch, Daily metoprolol succinate, 50 mg, Daily pantoprazole, 40 mg, q12h SILVANO ambrisentan, 5 mg, Daily treprostinil diolamine, 3 mg, TID polyetheylene glycol, 17 g, Nightly QUEtiapine, 25 mg, Nightly sildenafil, 20 mg, TID sodium chloride, 10 mL, BID zinc sulfate, 220 mg, Daily acetaminophen, 650 mg, q6h PRN HYDROmorphone, 0.5 mg, q3h PRN ondansetron, 4 mg, q6h PRN oxyCODONE, 5 mg, q6h PRN sodium chloride, 10 mL, PRN ASSESSMENT & PLAN Assessment/Plan Principal Problem: Fluid overload No problem-specific Assessment & Plan notes found for this encounter. 80-year-old female with past medical history significant for recent hip replacement and rehab stay,MDS, crest syndrome was admitted with chest pain and was found to have bilateral aspiration pneumonia in setting of achalasia along with bilateral pleural effusions. She was initially started on broad-spectrum Vanco and Zosyn, Vanco discontinued with MRSA nares negative and Zosyn discontinued due to TERE. Nephrology consulted for TERE in setting of volume overload she is being treated with ceftriaxone and doxycycline. She underwent EGD on 09/20 which suggested a peristalsis and modified diet ordered as per speech. Biopsy suggested esophageal candidiasis, could not start on Diflucan with borderline QTc and interaction with Seroquel, started on micafungin. TTE concerning for aortic valve calcification versus vegetation, ID consulted. Blood cultures sent. Aortic valve vegetation -Noticed on TTE, could be calcification as well. Blood cultures sent. ID consulted. Esophageal candidiasis - Noticed on EGD biopsy, started on micafungin due to prolonged QTc. Chest pain Achalasia CREST syndrome - ACS workup unremarkable and troponin trended down. EKG unremarkable. - Modified diet due to ongoing aspiration and aperistalsis. EGD 09/20 consistent with aperistalsis, recommended patient to stay upright at all times including while at sleeping. -Candidiasis treatment as above. Bilateral aspiration pneumonia - Insetting of the peristalsis, completed treatment of doxycycline and ceftriaxone. TERE - Creatinine improved to 1.56, status post IV Lasix. Continue to monitor. Appreciate nephrology recommendations. Follow-up on renal ultrasound. Chronic conditions: -Coccyx wound: Wound care, as needed oxycodone. - Pulmonary arterial hypertension: Sildenafil, letaris - MDS: Outpatient oncology follow-up. VTE Prophylaxis: SCD Diet: Soft and bite sized Resuscitation: Full code Discharge barrier-diet toleration, probable vegetation All labs, imaging, relevant history personally reviewed by me. Please be aware that the above note was completed using voice recognition software. If you have anyquestions please contact the author of this note for clarification. * Bob Brown MD - 09/21/2025 12:22 PM EST [facility] Provider Response Note PATIENT: IWONA ROMERO : 1945 ADMIT DATE: 09/15/2025 7:25 PM DISCH DATE: RESPONDING PROVIDER #: [id number] PROVIDER RESPONSE TEXT: Ms. Romero has pressure wounds. QUERY TEXT: Please specify etiology of the following wounds as: ED Provider Notes 09/15/25 Patient has a stage III decubitus ulcer without bleeding or discharge, no overlying erythema or palpable fluctuance. Wound Care Initial Consult 09/17/25 Ms. Tal RN Wound Injury 09/16/25 Buttocks Right (Active) ...Injury Stage DTPI Small DTI on LT heel- offload both in waffle boots. Prabha Álvarez RN, Clinical [facility] [phone] The patient's clinical indicators include: Options provided: -- pressure wounds -- non-pressure wounds -- Other - I will add my own diagnosis -- Disagree - Not applicable / Not valid Query created by: Prabha Álvarez on 09/21/2025 12:18 PM Electronically signed by: BOB BROWN MD 09/21/2025 12:21 PM * Franki Saavedra MD - 09/21/2025 11:49 AM EST Images from the original note were not included. Progress Note CHIEF COMPLAINT F/u SUBJECTIVE Patient seen and examined Patient complains of retrosternal pain Had EGD today MEDICAL HISTORY Medical History[1] MEDICATIONS MEDSSCHEDULED[2] MEDSPRN[3] MEDSCONTINUOUS[4] OBJECTIVE Vital signs in last 24 hours: Visit Vitals BP (!) 101/42 (BP Location: Right arm, Patient Position: Lying) Pulse 97 Temp 36.6 ??C (97.8 ??F) (Temporal) Resp 16 Intake/Output last 24 hours: Intake/Output Summary (Last 24 hours) at 09/21/2025 1149 Last data filed at 09/21/2025 0500 Gross per 24 hour Intake 120 ml Output 600 ml Net -480 ml Weights: Admission Weight: Weight: 47.6 kg (105 lb) Wt Readings from Last 3 Encounters: 09/21/25 55.9 kg (123 lb 4.8 oz) 05/24/25 50.8 kg (112 lb) 04/14/25 49.9 kg (110 lb) Physical Exam: General: No acute distress HEENT: Normocephalic, atraumatic, anicteric Cardiovascular: S1 S2 normal Respiratory: unlabored Gl: soft non-distended Extremities: 1+ edema left thigh area Neurological: Alert Integumentary: no rash Psych: Calm, cooperative LABS Results from last 7 days Lab Units 09/21/25 0520 09/20/25 0450 09/19/25 0551 WBC AUTO K/mcL 11.7* 5.4 4.8 HEMOGLOBIN g/dL 11.3* 9.3* 8.4* HEMATOCRIT % 37.1 31.1* 27.9* MCV FL 100.0* 103.0* 101.5* PLATELETS K/mcL 299 174 155 Results from last 7 days Lab Units 09/21/25 0520 09/20/25 0450 09/19/25 0551 CREATININE mg/dL 1.26* 1.56* 1.69* BUN mg/dL 43* 41* 41* SODIUM mmol/L 142 141 142 POTASSIUM mmol/L 4.4 4.3 4.1 CHLORIDE mmol/L 111* 111* 110 CO2 mmol/L 21 22 23 No results found for: PHOS , [id number] , PTH , PUR Iron Date Value Ref Range Status 06/07/2025 33 (L) 40 - 150 mcg/dL Final 05/24/2025 58 40 - 150 mcg/dL Final TIBC Date Value Ref Range Status 06/07/2025 385 250 - 450 mcg/dL Final 05/24/2025 371 250 - 450 mcg/dL Final Ferritin Date Value Ref Range Status 06/07/2025 12 8 - 252 ng/mL Final 05/24/2025 16 8 - 252 ng/mL Final No results found for: COLORUA , CLARITYUA , SPECGRAVUA , PHUA , PROTUA , GLUCOSEUA , KETONESUA , BILIRUBINUA , BLOODUA , UROBILINOGUA , NITRITEUA IMPRESSION and PLAN Patient is 80 year old female with history of recent left hip replacement at [facility] ( needing rehab stay for 1 month), CREST syndrome with pulmonary hypertension, aplastic anemia, scleroderma, myeloid dysplasia presented with chest pain Routine BP 100-120 On Medication for pulmonary hypertension at home (sildenafil / ambrisentan ) Ct with contrast on 09/15 Echo 09/17: IVC normal size BP has been on low side 90 systolic Having high bladder scan 300s Baseline 0.96 ( admission) Recs: Creatinine has stabilized and is down to 1.26 Tere differential: Pre-renal/ ATN from low BP/ contrast/ high PVR Her BP was never high, unlikely scleroderma renal crisis ( although there cases of normotensive renal crisis) No need for IV fluids No need for diuretics at this juncture US kidney done yesterday. 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 (calcinosis, Raynaud's phenomenon, esophageal dysfunction, sclerodactyly, telangiectasia) (CMS/HCC V24, CMS/HCC V28) GERD (gastroesophageal reflux disease) Mitochondrial myopathies Pulmonary fibrosis (CMS/HCC V24, CMS/HCC V28) Pulmonary HTN (CMS/HCC V24, CMS/HCC V28) Scleroderma (CMS/HCC V24, CMS/HCC V28) Sjogren syndrome (CMS/HCC V24) [2] apixaban, 2.5 mg, oral, BID ascorbic acid, 250 mg, oral, Daily collagenase, , Topical, Daily dorzolamide, 1 drop, Both Eyes, TID doxycycline, 100 mg, intravenous, q12h fluconazole, 400 mg, oral, q24h SILVANO gabapentin, 200 mg, oral, Nightly lidocaine, 1 patch, Topical, Daily metoprolol succinate, 50 mg, oral, Daily pantoprazole, 40 mg, intravenous, q12h SILVANO ambrisentan, 5 mg, oral, Daily treprostinil diolamine, 3 mg, oral, TID polyetheylene glycol, 17 g, oral, Nightly QUEtiapine, 25 mg, oral, Nightly sildenafil, 20 mg, oral, TID sodium chloride, 10 mL, intravenous, BID zinc sulfate, 220 mg, oral, Daily [3] PRN medications: acetaminophen, HYDROmorphone, ondansetron, oxyCODONE, [COMPLETED] Insert peripheral IV AND Maintain IV access AND [COMPLETED] Saline lock IV AND sodium chloride AND sodium chloride [4] * Bob Brown MD - 09/21/2025 11:42 AM EST [facility] Provider Response Note PATIENT: IWONA ROMERO : 1945 ADMIT DATE: 09/15/2025 7:25 PM DISCH DATE: RESPONDING PROVIDER #: [id number] PROVIDER RESPONSE TEXT: The patient has moderate second degree malnutrition. QUERY TEXT: There are clinical indicators, dietary orders and a dietary consult noted in the medical record regarding the patient?s nutritional status. Please provide a diagnosis if able, based on the below clinical findings and indicators, such as: Nutrition Consult Note/Nutrition Assessment 09/18/[address] Nutrition Diagnosis: Code Type: Moderate-Chronic (E44.0) Moderate-Chronic Criteria: Energy Intake <75%/1mo, Mild Body Fat Depletion, Mild Muscle Mass Depletion The following clinical indicators are present in the medical record: - BMI: 18.6 - Insufficient energy intake - Loss of muscle mass - Loss of subcutaneous fat - Weight loss of: Nutrition Consult Note/Nutrition Assessment 09/18/[address] Nutrition Focused Physical Findings: Overall Appearance: Patient appears thin, moderate to severe muscle and fat depletion Digestive System (Mouth to Rectum): Appetite change, Early satiety Nerves and Cognition: Oriented, Alert Skin: unstageable pressure injury to sacrum, Stage 2 buttock Loss of Fat Location: Orbital, Triceps, Ribs Loss of Fat Amt-Orbital: Moderate Loss of Fat Amt-Triceps: Moderate Loss of Fat Amt-Ribs: Moderate Loss of Muscle Location: Temples, Clavicle, Shoulders, Interosseous Loss of Muscle Amt-Temples: Moderate Loss of Muscle Amt-Clavicle: Severe Loss of Muscle Amt-Shoulders: Severe Loss of Muscle Amt-Inter Musc: Severe The patient received the following treatment, evaluation or monitoring: - Calorie count - Nutritional counseling or evaluation - Oral supplements - TPN - Tube Feeding Nutrition Consult Note/Nutrition Assessment 09/18/[address] Nutrition Interventions: Medical Food Supplement, Vitamin/Mineral Supplement Medical Food Supplement(s): Ensure Plus TID Add vitamin C 250 mg daily and zinc 220 mg daily for 8 days. Will hold off on multivitamin for now due to uncertainty over niacin reaction. Add additional vitamin A and Alex as able with renal function. The patient has the following risk factors: Nutrition Consult Note/Nutrition Assessment 09/18/25 Ms. Tirado, RD Status: New Diagnosis: Malnutrition Etiology: Physiologic causes Symptoms: moderate to severe muscle and fat depletion, meeting <75% estimated needs for > 1 month Additional Nutrition Diagnosis?: Yes Status: New Diagnosis: Altered GI Function Etiology: Compromised GI function Symptoms: early satiety, decreased PO intaek, dilated esophagus with residual food present Prabha Álvarez RN, Clinical Barrel [facility] [phone] ASPEN Criteria ([place] [employer] for Parenteral and Enteral Nutrition), for reference. Moderate Malnutrition in Acute Illness -Energy Intake: < 75% of estimated energy requirement for > 7 days -Weight Loss: 1 - 2% /1 week; 5% /1 month; 7.5% /3 months -Other: mild body fat loss; mild muscle mass loss; mild fluid accumulation Severe Malnutrition in Acute Illness -Energy Intake: <= 50% of estimated energy requirement for >= 5 days -Weight Loss: > 2% /1 week; > 5% /1 month; > 7.5% /3 months -Other: moderate body fat loss; moderate muscle mass loss; moderate-severe fluid accumulation; measurably reduced brake repairer railroad strength Moderate Malnutrition in Chronic Illness -Energy Intake: < 75% of estimated energy requirement for >= 1 month -Weight Loss: 5% /1 month; 7.5% /3 months; 10% /6 months; 20% /1 year -Other: mild body fat loss; mild muscle mass loss; mild fluid accumulation Severe Malnutrition in Chronic Illness -Energy Intake: <= 75 of estimated energy requirement for >= 1 month -Weight Loss: > 5% /1 month; > 7.5% /3 months; >10% /6 months; >20% /1 year -Other: severe body fat loss; severe muscle mass loss; severe fluid accumulation; measurably reduced brake repairer railroad strength The patient's clinical indicators include: Options provided: -- Malnutrition, mild first degree -- Malnutrition, moderate second degree -- Malnutrition, severe third degree -- Malnutrition unable to further specify -- No malnutrition is evident -- Other - I will add my own diagnosis -- Disagree - Not applicable / Not valid Query created by: Prabha Álvarez on 09/21/2025 11:20 AM Electronically signed by: BOB BROWN MD 09/21/2025 11:41 AM * Elena Sterling Ricky, PT - 09/21/2025 11:40 AM EST [place], [place] Acute Care PT TREATMENT 09/21/2025 Patient Information Iwona Romero 1945 80 y.o. Ambulation: Walking Assistance: Minimum assistance Device: Rolling walker Distance Ambulated (ft): (6 to 7 steps bed to commode + 5 steps to walk back to bed. Pt then wantedto sit in chair so she walked another 5 to 6 steps to transfer to chair withRW) PLOF: Level of [place]: Needs assistance with mobility, Needs assistance with functional transfers Lives With: Spouse (they have 24 hour APPLICATION LEAD. There is a son who works) Receives Help From: childcare attendant Home Adaptive Equipment: Walker - rolling, Wheelchair - power Home Living Comments: [facility], ramp to enter building. One level apt DME Needs: PT Discharge Recommendation: Home PT Medical Diagnosis ICD-10-CM ICD-9-CM 1. Pneumonia of left lung due to infectious organism, unspecified part of lung J18.9 486 Tissue exam Tissue exam 2. SOB (shortness of breath) R06.[address] Angio Chest wo and/or w Contrast CT Angio Chest wo and/or w Contrast Tissue exam Tissue exam 3. Leg swelling M79.89 729.81 Vascular US Duplex Lower Extremity Venous Bilateral Vascular US Duplex Lower Extremity Venous Bilateral Tissue exam Tissue exam 4. Pleural effusion J90 511.9 Tissue exam Tissue exam 5. Congestive heart failure, unspecified HF chronicity, unspecified heart failure type (CMS/HCC V24, CMS/HCC V28) I50.9 428.0 Transthoracic echocardiogram (TTE) complete with PRN contrast, bubble, strain, and 3D order panel Transthoracic echocardiogram (TTE) complete with PRN contrast, bubble, strain, and 3D order panel Tissue exam Tissue exam 6. Fluid overload E87.70 276.69 Tissue exam Tissue exam 7. Achalasia K22.0 530.0 EGD Anesthesia - MAC; [facility] EGD Anesthesia - MAC; [facility] Tissue exam Tissue exam Rehabilitation Precautions/Restrictions Precautions Medical Precautions: Fall Risk Safety Interventions: Call white within reach, Side rails up x2, Bed alarm, Chair alarm Swallow Precautions: Aspiration LLE Weight Bearing Status: As Tolerated Orthopedic Precautions: Posterior/Lateral Hip Precautions PT Session: PT Time Calculation PT Start Time: 1140 PT Stop Time: 1220 PT Time Calculation (min): 40 min SUBJECTIVE I want to go home today Pharmacy Billing Adjudicator just told her D/C was cancelled today OBJECTIVE Vitals/Pain: Oxygen Therapy Oxygen Therapy: None (Room air) Pain Assessment Pain Assessment: 0-10 Pain Score: 8 Pain Type: Acute pain Pain Location: (Coccyz/sacral wound) Pain Interventions: (pt wanted to sit up, she said her wound does not hurt when she sits. PT assisted in transfer to bedside chair. THere was donut in the chair she brought from home. She said it felt good to sit in chair.) General Assessments: Activity Tolerance Endurance: Tolerates 10 - 20 min exercise with multiple rests Dynamic Standing Balance Dynamic Standing-Level of Assistance: Minimum assistance, Contact guard Dynamic Standing-Balance: Ambulation Dynamic Standing-Comments: fair to fair+ with RW Functional Assessments: Bed Mobility Rolling Right Assistance: Minimum assistance Lying to Sitting Assistance: Maximum assistance (to bring her LEs to edge of bed and assist to pushher body upright) Bed Mobility Comments: pt did not want to return to bed and wanted to sit @ EOB or sit in chair Transfers Sit to Stand Assistance: Moderate assistance Toilet Transfer Assistance: Moderate assistance Transfer Comments: pt walked to commode to pretend it was W/C Ambulation Walking Assistance: Minimum assistance Device: Rolling walker Distance Ambulated (ft): (6 to 7 steps bed to commode + 5 steps to walk back to bed. Pt then wantedto sit in chair so she walked another 5 to 6 steps to transfer to chair withRW) Comments: slow, steady gait Procedure/Treatment: Therapeutic Activity Therapeutic Activity Time Entry: 40 Therapeutic Activity 1: pls see above for mobility. Pt did not want to return to bed after working with PT. Bedside chair was set up and she brought donut cushion for the chair and she said it felt good to sit in it. Nurse was present as second person in case we needed her. Pt felt comfortable sitting in chair with alarm on and tray table in front of her. Education Education Documentation Mobility Training, taught by Elena García PT at 09/21/2025 11:40 AM. Learner: Patient Readiness: Acceptance Method: Explanation Response: Verbalizes Understanding Comment: safe sit to stand, home PT Education Comments No comments found. ASSESSMENT Pt was steady with Rolling walker with min assist of 1. Her plan is still to go home. Rec home PT for transfers, gait and balance training. PT Assessment PT Assessment Results: Decreased strength, Decreased endurance, Impaired balance, Impaired gait, Pain Prognosis: Good Evaluation/Treatment Tolerance: Patient tolerated treatment well Medical Staff Made Aware: Yes Comments: PT notified nurse of her transfer status Problems/Goals Goals: Encounter Problems Encounter Problems (Active) Template: Physical Therapy Problem: PT Short Term Goals Dates: Start: 09/17/25 Goal: PT STG 1 Patient will transfer sit<>stand safely Close Supervision with RW Dates: Start: 09/17/25 Expected End: 10/01/25 Goal: PT STG 2 Patient will transfer supine<>sit min asssit Dates: Start: 09/17/25 Expected End: 10/01/25 Encounter Problems (Resolved) There are no resolved problems. Equipment Equipment Received: Equipment Recommended: Rolling walker PLAN During acute care stay: PT Plan: Skilled PT PT Frequency: 2-5 days per week PT Treatments per day: PRN Treatment/Interventions: Functional transfer training, LE strengthening/ROM, Gait training, Balancetraining PT Discharge Recommendations: Home PT PT Time Entry: Therapeutic Activity Time Entry: 40 * ANJU Garcia - 09/20/2025 11:48 PM EST CROSS COVERAGE SITUATION: Notified by nursing for sinus tachycardia into the 130s PHYSICAL EXAM: Vital Signs: Visit Vitals BP (!) 106/44 (BP Location: Right arm, Patient Position: Lying) Pulse (!) 119 Temp 36.7 ??C (98.1 ??F) (Temporal) Resp 16 Ht 1.6 m (63 ) Wt 56.6 kg (124 lb 12.8 oz) SpO2 92% BMI 22.11 kg/m?? OB Status Postmenopausal Smoking Status Never BSA 1.58 m?? ASSESSMENT AND PLAN: - Heart rate gradually increased from 100s to 130s throughout the evening - Upon review of chart patient is chronically prescribed metoprolol tartrate 100 mg daily - Reduced today to 25 mg daily - Concern for rebound tachycardia - Will administer IV Metoprolol and increase oral dose of metoprolol tomorrow 09/21/25 * Elena García, PT - 09/20/2025 3:48 PM EST Physical Therapy Therapy session was attempted for Iwona Romero by Elena García PT on 09/20/2025. The patient was unable to be seen for the following reason(s): Out of room at a medical procedure Pt was in US earlier this afternoon Plan for return visit: Tomorrow * Bob Brown MD - 09/20/2025 1:46 PM EST Images from the original note were not included. [facility] PROGRESS NOTE Date: 09/20/2025 Author: Bob Brown MD Patient ID: Iwona Romero is a 80 y.o. female : 1945 MR#: [id number] SUBJECTIVE Subjective Patient seen at bedside this morning. She underwent EGD this morning and was found to have a peristalsis. Recommended being upright all the time even when sleeping. Started on modified diet as per speech. Will monitor for nutritional intake. Otherwise, her creatinine seems to be improving, H/H stable. No acute overnight events Objective Allergy- Epinephrine, Bee venom protein (honey bee), Cyclosporine, Mushroom, and Niacin OBJECTIVE Vitals: 09/20/25 0818 09/20/25 0828 09/20/25 0855 09/20/25 1114 BP: (!) 91/28 (!) 108/40 (!) 119/48 (!) 150/67 BP Location: Patient Position: Pulse: 85 87 77 88 Resp: 15 18 16 18 Temp: 36.1 ??C (96.9 ??F) 35.8 ??C (96.5 ??F) TempSrc: SpO2: 96% 97% 97% 96% Weight: Height: Temp (24hrs), Av ??C (96.8 ??F), Min:35.8 ??C (96.4 ??F), Max:36.3 ??C (97.3 ??F) Physical Exam General-patient appears comfortable, no acute distress, appears chronically ill HEENT-NCAT Eyes-anicteric Heart-Normal Rate and Rhythm Respiratory-CTAB Abdomen-Soft, nontender, nondistended Extremity-no significant lower extremity edema Neurology-awake alert oriented to time, place,and person Psych- Normal Mood and affect Skin-warm and dry Lab Results: CBC BMP Results from last 7 days Lab Units 09/20/2544909/19/2555009/18/25 0556 09/17/25 0545 WBC AUTO K/mcL 5.4 4.8 6.0 7.2 HEMOGLOBIN g/dL 9.3* 8.4* 9.0* 9.7* HEMATOCRIT % 31.1* 27.9* 29.1* 31.9* PLATELETS K/mcL 174 155 199 231 LYMPHS PCT AUTO % 6.0 6.8 6.1 4.2 MONO PCT AUTO % 7.3 9.1 7.9 6.5 EOS PCT AUTO % 8.8 7.6 3.9 2.1 Results from last 7 days Lab Units 09/20/2544909/19/2555009/18/25 0556 09/17/25 0545 09/16/25 0522 SODIUM mmol/L 141 142 142 140 140 POTASSIUM mmol/L 4.3 4.1 3.3* 3.6 3.4* CHLORIDE mmol/L 111* 110 109 107 108 CO2 mmol/L 22 23 24 23 26 ANION GAP 8 9 9 10 6 BUN mg/dL 41* 41* 38* 35* 36* CREATININE mg/dL 1.56* 1.69* 1.38* 1.17* 0.97 CALCIUM mg/dL 7.2* 7.1* 7.5* 7.5* 7.2* MAGNESIUM mg/dL -- -- -- -- 1.9 Results from last 7 days Lab Units 09/20/2544909/19/25 0509/18/25 0556 09/17/25 0545 09/16/25 0522 GLUCOSE mg/dL 136* 101* 91 113* 106* Results from last 7 days Lab Units 09/15/25 1502 AST unit/L 29 ALT unit/L 15 Scheduled Medications PRN Medications IV Medications apixaban, 2.5 mg, BID ascorbic acid, 250 mg, Daily cefTRIAXone, 1 g, q24h collagenase, , Daily dorzolamide, 1 drop, TID doxycycline, 100 mg, q12h gabapentin, 200 mg, Nightly lidocaine, 1 patch, Daily metoprolol succinate, 25 mg, Daily pantoprazole, 40 mg, q12h SILVANO ambrisentan, 5 mg, Daily treprostinil diolamine, 3 mg, TID polyetheylene glycol, 17 g, Nightly QUEtiapine, 25 mg, Nightly sildenafil, 20 mg, TID sodium chloride, 10 mL, BID zinc sulfate, 220 mg, Daily acetaminophen, 650 mg, q6h PRN HYDROmorphone, 0.5 mg, q3h PRN ondansetron, 4 mg, q6h PRN oxyCODONE, 5 mg, q6h PRN sodium chloride, 10 mL, PRN ASSESSMENT & PLAN Assessment/Plan Principal Problem: Fluid overload 80-year-old female with past medical history significant for recent hip replacement and rehab stay,MDS, crest syndrome was admitted with chest pain and was found to have bilateral aspiration pneumonia in setting of achalasia along with bilateral pleural effusions. She was initially started on broad-spectrum Vanco and Zosyn, Vanco discontinued with MRSA nares negative and Zosyn discontinued due to TREE. Nephrology consulted for TERE in setting of volume overload she is being treated with ceftriaxone and doxycycline. She underwent EGD on 09/20 which suggested a peristalsis and modified diet ordered as per speech. Chest pain Achalasia CREST syndrome - ACS workup unremarkable and troponin trended down. TTE unremarkable. EKG unremarkable. - Modified diet due to ongoing aspiration and aperistalsis. EGD 09/20 consistent with aperistalsis, recommended patient to stay upright at all times including while at sleeping. Bilateral aspiration pneumonia - Insetting of the peristalsis, completed treatment of doxycycline and ceftriaxone. TERE - Creatinine improved to 1.56, status post IV Lasix. Continue to monitor. Appreciate nephrology recommendations. Follow-up on renal ultrasound. Chronic conditions: -Coccyx wound: Wound care, as needed oxycodone. - Pulmonary arterial hypertension: Sildenafil, letari-MDS: Outpatient oncology follow-up.s VTE Prophylaxis: SCD Diet: Soft and bite sized Resuscitation: Full code Discharge barrier-diet toleration All labs, imaging, relevant history personally reviewed by me. Please be aware that the above note was completed using voice recognition software. If you have anyquestions please contact the author of this note for clarification. * Prabha Foss RN - 09/20/2025 11:30 AM EST CM 09/20 KIKO: 09/21 Plan: Home with 24 hour APPLICATION LEAD Care and Caretenders Barriers: EGD =no peristalsis, ref ST eval, IV abx, IV Lasix, Wound consult, 09/17 * Audra Ironuma - 09/20/2025 10:36 AM EST SPIRITUAL CARE Date/Time:09/20/25 at 10:36 AM EST Type of Visit: Initial Visit and Ticketing Agent Rounding Reason for Visit: Spiritual/Emotional Support and Spiritual Assessment Time Spent: 15 Minutes Location: [address] [place] [address] Sacramental Encounters: Spiritual Distress Assessment: Spiritual Distress Assessment at beginning of visit Meaning - Overall Life Balance: Some evidence of unmet spiritual need Transcendence: No evidence of unmet spiritual need Values - Acknowledgement: No evidence of unmet spiritual need Values - Control: No evidence of unmet spiritual need Psycho-Social Identity: No evidence of unmet spiritual need SDAT Beginning of Visit Average Score: 0.2 Spiritual Distress Assessment at end of visit Meaning - Overall Life Balance: Some evidence of unmet spiritual need Transcendence: No evidence of unmet spiritual need Values - Acknowledgement: No evidence of unmet spiritual need Values - Control: No evidence of unmet spiritual need Psycho-Social Identity: No evidence of unmet spiritual need SDAT End of Visit Average Score: 0.2 Spiritual Assessment/Distress Spiritual Care Assessment: Assessment: Iwona, was awake, alert, lying down in the bed talking on the phone with family at thetime of visit. Voiced being well supported by family. Shared health condition. Hopeful with care plan and treatment to get better. Raised no concern except desire to keep getting better. Davina sabianist is Gnosticism, prayed for recovery and good health. Thankful for the visit. Intervention: NE Spiritual Care Interventions : provided support, explored hope, listened empathically, and provided prayer Outcomes: expressed gratitude and expressed peace Plan of Care: Visit as needed *Reference: Spiritual Distress Assessment Tool: The SDAT is a clinical tool used by chaplains to identify unmet spiritual and emotional needs that can impact Goals of Care in the following categories: Spiritual Distress Assessment Legend Spiritual Needs Related Questions Meaning Are you having difficulties coping with what is happening to your now? Does your hospitalization have any repercussions on the way you live usually? Transcendence Do you have a particular sabianist, davina, or spirituality? Is your sabianist/spirituality/davina challenged by what is happening to you now? Values Do you think that the health professionals caring for you know you well enough? Do you feel that you are participating in the decisions made about your care? Psycho-Social Identity Do you have any worries or difficulties regarding your family or other persons close to you? Do you feel lonely? Do you have links to your davina community? SCALE 0= no evidence of unmet spiritual needs 1= some evidence of unmet spiritual needs 2= substantial evidence of unmet spiritual needs 3= evidence of severe unmet spiritual needs * Marcy Baum [facility] - 09/20/2025 10:30 AM EST Images from the original note were not included. Speech Language Pathology [facility] MISSION ANALYST TREATMENT NOTE NAME: Iwona Romero DATE OF : 1945 ROOM: [address] [place] [address] Pt ID by: Self, Full Name DATE: 09/20/25 RECOMMENDATIONS: DIET SOLIDS RECOMMENDATIONS: IDDSI Level 6 Soft and Bite Sized (w/ IDDSI 5 minced/moist meats) DIET LIQUIDS RECOMMENDATIONS: Thin liquids ASPIRATION RISK: Recommendations: Dysphagia treatment Diet Solids Recommendation: IDDSI Level 6 Soft and Bite Sized (w/ IDDSI 5 minced/moist meats) Diet Liquids Recommendation: Thin liquids Liquid Administration Via: Cup, Straw Supervision Level: Set up with meals Compensatory Swallowing Strategies: Alternate solids and liquids, Upright as possible for all oral intake, Remain upright for 20-30 minutes after meals, Eat/feed slowly, Small bites/sips, Other (Comment) (chew solids well) Recommended Medication Route: PO Recommended Medication Administration: Liquid form if possible (whole in apple sauce followed by liquid wash- pt declined, one at a time with liquid) IMPRESSIONS: MISSION ANALYST ASSESSMENT: MISSION ANALYST Assessment Results: Swallowing impairments Dysphagia Diagnosis: (poor/absent esophogeal motility, per EGD report) Evaluation/Treatment Tolerance: Patient tolerated treatment well Comments: Pt presents with oral and oropharyngeal swallow function WFL, however poor/absent esophogeal motility per EGD. Med team request for MISSION ANALYST clearance prior to advancing diet. Pt tolerated all trialed consistenices this session, with mildly prolonged mastication of soft solids. Recommend IDDSI6 soft/bit sized w/ IDDSI 5 ground meats/0 thin liquids. MISSION ANALYST recommended meds one at a time in puree followd by liquid wash, however pt declined, agreeable only to meds one at a time with liquid. SLPto f/u x 1 Medical Staff Made Aware: Yes Comments: RN and message team to MD TIME CALCULATION: MISSION ANALYST Start Time: 1030 MISSION ANALYST Stop Time: 1045 MISSION ANALYST Time Calculation (min): 15 min Bus System Operator Required: No ADMISSION DIAGNOSIS: SOB (shortness of breath) [R06.02] Pleural effusion [J90] Leg swelling [M79.89] Fluid overload [E87.70] Pneumonia of left lung due to infectious organism, unspecified part of lung [J18.9] Congestive heart failure, unspecified HF chronicity, unspecified heart failure type (CMS/HCC V24, CMS/HCC V28) [I50.9] FAMILY/CAREGIVER PRESENT: Yes SUBJECTIVE SUBJECTIVE: Chart reviewed and cleared by RN for MISSION ANALYST session; requested clearance for advanced dietfollowing EGD. Upon arrival pt lying in bed with and caregiver present, agreeable to PO trials. RESPIRATORY STATUS: Room air PRECAUTIONS: Swallow Precautions: Aspiration MENTAL STATUS Alert Responsive Cooperative OBJECTIVE PAIN: OXYGEN THERAPY: TREATMENTS: Treatments: Swallow Function SWALLOW FUNCTION: Swallow/Oral Function Treatment Time Entry: 15 Swallow Activity 1: Thin liquids via consecutive st sip x 3 (9 total), self fed, water: appropriateoral phase, SOB after all trials and encouraged to take breathing break. 02 at 99-100% Swallow Activity 2: IDDSI 4 puree x 3, self fedm apple sauce: tolerated well Swallow Activity 3: IDDSI 6 soft and bite sized x 3, MISSION ANALYST fed, cereal: mildly prolonged chewing, took sip inbetween each bite ASPIRATION RISK: Recommendations: Dysphagia treatment Diet Solids Recommendation: IDDSI Level 6 Soft and Bite Sized (w/ IDDSI 5 minced/moist meats) Diet Liquids Recommendation: Thin liquids Liquid Administration Via: Cup, Straw Supervision Level: Set up with meals Compensatory Swallowing Strategies: Alternate solids and liquids, Upright as possible for all oral intake, Remain upright for 20-30 minutes after meals, Eat/feed slowly, Small bites/sips, Other (Comment) (chew solids well) Recommended Medication Route: PO Recommended Medication Administration: Liquid form if possible (whole in apple sauce followed by liquid wash- pt declined, one at a time with liquid) SPEECH AND LANGUAGE: CURRENT DIET ORDERED: Dietary Orders (From admission, onward) Start Ordered 09/20/25 1044 Adult diet [facility]; Modified Consistency Options for Liquidsand Solids; IDDSI Level 6 Soft & Bite Sized Diet effective now Question Answer Comment Location [facility] Diet Type (req) Modified Consistency Options for Liquids and Solids Modified Consistency Options for Liquids and Solids IDDSI Level 6 Soft & Bite Sized 09/20/25 1045 09/17/25 1511 Dietary nutrition supplements Three times daily (TID); [facility]; Standard Oral Supplement Continuous Comments: Chocolate ensure with meals Question Answer Comment Frequency Three times daily (TID) Location [facility] Supplements Standard Oral Supplement 09/17/25 1511 PLAN MISSION ANALYST PLAN: Treatment/Interventions: Swallow function MISSION ANALYST Plan: Skilled MISSION ANALYST MISSION ANALYST Frequency: Follow-up visit only MISSION ANALYST - Evaluation Status: Complete Diet Recommendations: Full thin liquid diet DISCHARGE RECOMMENDATIONS No Speech-Language Pathology (MISSION ANALYST) services/needs at next level of care. EDUCATION EDUCATION: Education Documentation Modified Diet Training, taught by OK Domingo at 09/20/2025 5:48 PM. Learner: Patient Readiness: Acceptance Method: Explanation Response: Verbalizes Understanding, Refused Teaching, Needs Reinforcement Comment: declined med recommendation, otherwise accepted recommendations Education Comments No comments found. GOALS GOALS: Encounter Problems Encounter Problems (Active) Template: Speech Therapy Problem: Swallowing Dates: Start: 09/18/25 Goal: Patient will tolerate the least restrictive diet consistency to allow for safe consumption ofdaily meals Dates: Start: 09/18/25 Expected End: 09/18/25 Outcomes Date/Time User Outcome 09/20/25 1747 OK Domingo Progressing Encounter Problems (Resolved) There are no resolved problems. OK Domingo 09/20/2025 * Franki Saavedra MD - 09/20/2025 10:29 AM EST Images from the original note were not included. Progress Note CHIEF COMPLAINT F/u SUBJECTIVE Patient seen and examined Patient complains of retrosternal pain Had EGD today MEDICAL HISTORY Medical History[1] MEDICATIONS MEDSSCHEDULED[2] MEDSPRN[3] MEDSCONTINUOUS[4] OBJECTIVE Vital signs in last 24 hours: Visit Vitals BP (!) 119/48 Pulse 77 Temp 36.1 ??C (96.9 ??F) Resp 16 Intake/Output last 24 hours: Intake/Output Summary (Last 24 hours) at 09/20/2025 1029 Last data filed at 09/20/2025 0804 Gross per 24 hour Intake 2003.75 ml Output 700 ml Net 1303.75 ml Weights: Admission Weight: Weight: 47.6 kg (105 lb) Wt Readings from Last 3 Encounters: 09/20/25 56.6 kg (124 lb 12.8 oz) 05/24/25 50.8 kg (112 lb) 04/14/25 49.9 kg (110 lb) Physical Exam: General: No acute distress HEENT: Normocephalic, atraumatic, anicteric Cardiovascular: S1 S2 normal Respiratory: unlabored Gl: soft non-distended Extremities: 1+ edema left thigh area Neurological: Alert Integumentary: no rash Psych: Calm, cooperative LABS Results from last 7 days Lab Units 09/20/25 0450 09/19/25 0551 09/18/25 0556 WBC AUTO K/mcL 5.4 4.8 6.0 HEMOGLOBIN g/dL 9.3* 8.4* 9.0* HEMATOCRIT % 31.1* 27.9* 29.1* MCV FL 103.0* 101.5* 100.0* PLATELETS K/mcL 174 155 199 Results from last 7 days Lab Units 09/20/25 0450 09/19/25 0551 09/18/25 0556 CREATININE mg/dL 1.56* 1.69* 1.38* BUN mg/dL 41* 41* 38* SODIUM mmol/L 141 142 142 POTASSIUM mmol/L 4.3 4.1 3.3* CHLORIDE mmol/L 111* 110 109 CO2 mmol/L 22 23 24 No results found for: PHOS , [id number] , PTH , PUR Iron Date Value Ref Range Status 06/07/2025 33 (L) 40 - 150 mcg/dL Final 05/24/2025 58 40 - 150 mcg/dL Final TIBC Date Value Ref Range Status 06/07/2025 385 250 - 450 mcg/dL Final 05/24/2025 371 250 - 450 mcg/dL Final Ferritin Date Value Ref Range Status 06/07/2025 12 8 - 252 ng/mL Final 05/24/2025 16 8 - 252 ng/mL Final No results found for: COLORUA , CLARITYUA , SPECGRAVUA , PHUA , PROTUA , GLUCOSEUA , KETONESUA , BILIRUBINUA , BLOODUA , UROBILINOGUA , NITRITEUA IMPRESSION and PLAN Patient is 80 year old female with history of recent left hip replacement at [facility] ( needing rehab stay for 1 month), CREST syndrome with pulmonary hypertension, aplastic anemia, scleroderma, myeloid dysplasia presented with chest pain Routine BP 100-120 On Medication for pulmonary hypertension at home (sildenafil / ambrisentan ) Ct with contrast on 09/15 Echo 09/17: IVC normal size BP has been on low side 90 systolic Having high bladder scan 300s Baseline 0.96 ( admission) Recs: Creatinine has stabilized and is down to 1.56 nonoliguric Tere differential: Pre-renal/ ATN from low BP/ contrast/ high PVR Her BP was never high, unlikely scleroderma renal crisis ( although there cases of normotensive renal crisis) Off IV fluids Diuretics as needed If having persistent high PVR: for [facility] kidney-ordered today No significant proteinuria UA is not a good collection given significant epithelial cells Daily labs Monitor urine output Discussed with patient and family at the bedside Franki Saavedra MD [1] Past Medical History: Diagnosis Date Anemia 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 (calcinosis, Raynaud's phenomenon, esophageal dysfunction, sclerodactyly, telangiectasia) (CMS/HCC V24, CMS/HCC V28) GERD (gastroesophageal reflux disease) Mitochondrial myopathies Pulmonary fibrosis (CMS/HCC V24, CMS/HCC V28) Pulmonary HTN (CMS/HCC V24, CMS/HCC V28) Scleroderma (CMS/HCC V24, CMS/HCC V28) Sjogren syndrome (CMS/HCC V24) [2] apixaban, 2.5 mg, oral, BID ascorbic acid, 250 mg, oral, Daily cefTRIAXone, 1 g, intravenous, q24h collagenase, , Topical, Daily dorzolamide, 1 drop, Both Eyes, TID doxycycline, 100 mg, intravenous, q12h gabapentin, 200 mg, oral, Nightly lidocaine, 1 patch, Topical, Daily metoprolol succinate, 25 mg, oral, Daily pantoprazole, 40 mg, intravenous, q12h SILVANO ambrisentan, 5 mg, oral, Daily treprostinil diolamine, 3 mg, oral, TID polyetheylene glycol, 17 g, oral, Nightly QUEtiapine, 25 mg, oral, Nightly sildenafil, 20 mg, oral, TID sodium chloride, 10 mL, intravenous, BID zinc sulfate, 220 mg, oral, Daily [3] PRN medications: acetaminophen, HYDROmorphone, ondansetron, oxyCODONE, [COMPLETED] Insert peripheral IV AND Maintain IV access AND [COMPLETED] Saline lock IV AND sodium chloride AND sodium chloride [4] * Mikael Balderas MD - 09/19/2025 11:11 AM EST Images from the original note were not included. [facility] PROGRESS NOTE Date: 09/19/2025 Author: Mikael Balderas MD Patient ID: Iwona Romero is a 80 y.o. female : 1945 MR#: [id number] SUBJECTIVE Subjective Patient seen and examined by bedside Vitals, labs and images reviewed. Worsening TERE. Creatinine 1.69. Nephrology to evaluate EGD planned for 09/20 Allergies Epinephrine, Bee venom protein (honey bee), Cyclosporine, Mushroom, and Niacin Current Medications: MEDSSCHEDULED[1] MEDSCONTINUOUS[2] MEDSPRN[3] OBJECTIVE Vitals: 09/18/25 2343 09/19/25 0407 09/19/25 0600 09/19/25 0820 BP: (!) 109/43 (!) 121/44 (!) 124/48 BP Location: Right arm Right arm Patient Position: Lying Lying Pulse: 65 66 71 Resp: 17 20 16 Temp: 36.2 ??C (97.1 ??F) 36 ??C (96.8 ??F) 36.6 ??C (97.8 ??F) TempSrc: Tympanic Temporal SpO2: 92% 93% 94% Weight: 54.9 kg (121 lb 1.6 oz) Height: Physical Exam General : Pt lying in bed in no acute distress Head : NC/AT Eyes : EOMI Resp : CTA B/L, no audible wheezing CVS : RRR, no audible murmurs GI : Abd Soft, NT, +colostomy Neuro : Awake, alert, follows commands LABS HEMATOLOGY Lab Results Component Value Date WBC 4.8 09/19/2025 HGB 8.4 (L) 09/19/2025 HCT 27.9 (L) 09/19/2025 MCV 101.5 (H) 09/19/2025 PLT 155 09/19/2025 CHEMISTRY Lab Results Component Value Date GLUCOSE 101 (H) 09/19/2025 NA 142 09/19/2025 K 4.1 09/19/2025 CO2 23 09/19/2025 CL 110 09/19/2025 BUN 41 (H) 09/19/2025 CREATININE 1.69 (H) 09/19/2025 EGFR 30 (L) 09/19/2025 CALCIUM 7.1 (L) 09/19/2025 MG 1.9 09/16/2025 ANIONGAP 9 09/19/2025 Imaging: Transthoracic echocardiogram (TTE) complete with PRN contrast, bubble, strain, and 3D order panel Technically difficult study. Left Ventricle: There is severe concentric hypertrophy. Systolic function is hyperdynamic with an ejection fraction over 70%. LV global longitudal strain is normal. Global longitudinal strain is -22.3%. There are no regional LV wall motion abnormalities. Left ventricle: There is moderate mid-cavity gradient of 52 mmHg at rest with no significant change with Valsalva. Aortic Valve: There is moderate stenosis. Aortic valve: In some of the parasternal views, there is evidence of an echodensity associated to the LVOT side of the aortic valve. This could represent a calcification. However, a vegetation cannot be completely ruled out with the available images. Consider further evaluation with blood cultures and/or a SERGIO if clinically indicated. Mitral Valve: There is severe stenosis, with a mean gradient of 11 mmHg. Pericardium: There is a small circumferential pericardial effusion. There is no echocardiographic evidence of tamponade. There is a left pleural effusion. ASSESSMENT & PLAN 80-year-old female with a past medical history to include recent left hip replacement at [facility] with subsequent 1 month stay at [facility], CREST syndrome, myelodysplastic syndrome amongst others admitted due to evaluation of chest pain. Workup on admission revealing for likely pneumonia with bilateral moderate pleural effusions. Chest pain No indication of ACS Troponins down trending 84->31 ECG does not show any ischemic changes TTE performed did not show any wall motion abnormality, LVEF >70% Possible aspiration pneumonia in the setting of achalasia Bilateral pleural effusion BNP 961 Received IV vancomycin and Zosyn initially. MRSA swab negative. IV vancomycin discontinued 09/16 CTA chest performed showed left lower lobe opacities consistent with pneumonia CTA chest showed esophageal dilation consistent with achalasia GI evaluation appreciated. EGD 09/20 IV antibiotics switched to IV ceftriaxone and doxycycline. Zosyn discontinued due to TERE TERE Creatinine increased to 1.69 -baseline creatinine normal Previously volume overloaded and received IV Lasix. Lasix discontinued Admission IV fluids briefly. 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 If you have any questions, please contact the author of this report for clarification. [1] apixaban, 2.5 mg, oral, BID ascorbic acid, 250 mg, oral, Daily collagenase, , Topical, Daily dorzolamide, 1 drop, Both Eyes, TID gabapentin, 200 mg, oral, Nightly lidocaine, 1 patch, Topical, Daily metoprolol succinate, 100 mg, oral, Daily pantoprazole, 40 mg, intravenous, q12h SILVANO ambrisentan, 5 mg, oral, Daily treprostinil diolamine, 3 mg, oral, TID piperacillin-tazobactam, 4.5 g, intravenous, q8h polyetheylene glycol, 17 g, oral, Nightly QUEtiapine, 25 mg, oral, Nightly sildenafil, 20 mg, oral, TID sodium chloride, 10 mL, intravenous, BID zinc sulfate, 220 mg, oral, Daily [2] sodium chloride 0.9 % with KCl 40 mEq/L, 75 mL/hr, Last Rate: 75 mL/hr (09/19/25 0555) [3] PRN medications: acetaminophen, HYDROmorphone, ondansetron, oxyCODONE, [COMPLETED] Insert peripheral IV AND Maintain IV access AND [COMPLETED] Saline lock IV AND sodium chloride AND sodium chloride * Mikael Balderas MD - 09/18/2025 1:21 PM EST Images from the original note were not included. [facility] PROGRESS NOTE Date: 09/18/2025 Author: Mikael Balderas MD Patient ID: Iwona Romero is a 80 y.o. female : 1945 MR#: [id number] SUBJECTIVE Subjective Patient seen and examined by bedside Vitals, labs and images reviewed. Creatinine increased to 1.38 No overnight events EGD planned for 09/20 Continue IV Zosyn for pneumonia Allergies Epinephrine, Bee venom protein (honey bee), Cyclosporine, Mushroom, and Niacin Current Medications: MEDSSCHEDULED[1] MEDSCONTINUOUS[2] MEDSPRN[3] OBJECTIVE Vitals: 09/18/25 0148 09/18/25 0418 09/18/25 0748 09/18/25 1234 BP: 135/64 109/52 (!) 111/46 (!) 109/44 BP Location: Right arm Patient Position: Lying Pulse: 81 75 76 73 Resp: 17 18 16 Temp: 36.4 ??C (97.6 ??F) 36.1 ??C (96.9 ??F) 36.5 ??C (97.7 ??F) TempSrc: Temporal SpO2: 93% 97% 95% Weight: Height: Physical Exam General : Pt lying in bed in no acute distress Head : NC/AT Eyes : EOMI Resp : CTA B/L, no audible wheezing CVS : RRR, no audible murmurs GI : Abd Soft, NT, +colostomy Neuro : Awake, alert, follows commands LABS HEMATOLOGY Lab Results Component Value Date WBC 6.0 09/18/2025 HGB 9.0 (L) 09/18/2025 HCT 29.1 (L) 09/18/2025 MCV 100.0 (H) 09/18/2025 PLT 199 09/18/2025 CHEMISTRY Lab Results Component Value Date GLUCOSE 91 09/18/2025 NA 142 09/18/2025 K 3.3 (L) 09/18/2025 CO2 24 09/18/2025 CL 109 09/18/2025 BUN 38 (H) 09/18/2025 CREATININE 1.38 (H) 09/18/2025 EGFR 39 (L) 09/18/2025 CALCIUM 7.5 (L) 09/18/2025 MG 1.9 09/16/2025 ANIONGAP 9 09/18/2025 Imaging: Transthoracic echocardiogram (TTE) complete with PRN contrast, bubble, strain, and 3D order panel Technically difficult study. Left Ventricle: There is severe concentric hypertrophy. Systolic function is hyperdynamic with an ejection fraction over 70%. LV global longitudal strain is normal. Global longitudinal strain is -22.3%. There are no regional LV wall motion abnormalities. Left ventricle: There is moderate mid-cavity gradient of 52 mmHg at rest with no significant change with Valsalva. Aortic Valve: There is moderate stenosis. Aortic valve: In some of the parasternal views, there is evidence of an echodensity associated to the LVOT side of the aortic valve. This could represent a calcification. However, a vegetation cannot be completely ruled out with the available images. Consider further evaluation with blood cultures and/or a SERGIO if clinically indicated. Mitral Valve: There is severe stenosis, with a mean gradient of 11 mmHg. Pericardium: There is a small circumferential pericardial effusion. There is no echocardiographic evidence of tamponade. There is a left pleural effusion. ASSESSMENT & PLAN 80-year-old female with a past medical history to include recent left hip replacement at [facility] with subsequent 1 month stay at [facility], CREST syndrome, myelodysplastic syndrome amongst others admitted due to evaluation of chest pain. Workup on admission revealing for likely pneumonia with bilateral moderate pleural effusions. Chest pain Troponins down trending 84->31 ECG does not show any ischemic changes TTE performed did not show any wall motion abnormality, LVEF >70% Possible aspiration pneumonia in the setting of achalasia Bilateral pleural effusion BNP 961 Received IV vancomycin and Zosyn initially. MRSA swab negative. IV vancomycin discontinued 09/16 CTA chest performed showed left lower lobe opacities consistent with pneumonia CTA chest showed esophageal dilation consistent with achalasia GI evaluation appreciated. EGD 09/20 TERE Creatinine increased to 1.38 as of 09/18 Previously volume overloaded and received IV Lasix. Lasix discontinued Admission IV fluids briefly. 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 If you have any questions, please contact the author of this report for clarification. [1] apixaban, 2.5 mg, oral, BID collagenase, , Topical, Daily dorzolamide, 1 drop, Both Eyes, TID [START ON 09/19/2025] furosemide, 20 mg, oral, Daily gabapentin, 200 mg, oral, Nightly lidocaine, 1 patch, Topical, Daily metoprolol succinate, 100 mg, oral, Daily pantoprazole, 40 mg, intravenous, q12h SILVANO ambrisentan, 5 mg, oral, Daily treprostinil diolamine, 3 mg, oral, TID piperacillin-tazobactam, 4.5 g, intravenous, q8h polyetheylene glycol, 17 g, oral, Nightly QUEtiapine, 25 mg, oral, Nightly sildenafil, 20 mg, oral, TID sodium chloride, 10 mL, intravenous, BID [2] [3] PRN medications: acetaminophen, HYDROmorphone, ondansetron, oxyCODONE, [COMPLETED] Insert peripheral IV AND Maintain IV access AND [COMPLETED] Saline lock IV AND sodium chloride AND sodium chloride * Caitlin Birmingham MD - 09/18/2025 11:01 AM EST GI PROGRESS NOTE Acute overnight events: Patient has no GI complaints today. She is eager to have her EGD performed as her is at home with dementia. He does have 24-hour caregivers but he is very out of sorts when she is not around.Patient states her major issue is that she is having 10 out of 10 pain from her sacral pressure wound. PHYSICAL EXAM: Visit Vitals BP (!) 111/46 Pulse 76 Temp 36.1 ??C (96.9 ??F) Resp 18 Ht 1.6 m (63 ) Wt 47.6 kg (105 lb) SpO2 97% BMI 18.60 kg/m?? OB Status Postmenopausal Smoking Status Never BSA 1.47 m?? APPEARANCE: No distress. Non-toxic appearing. HEART: RRR with normal S1 and S2, no murmurs appreciated LUNG: CTA on anterior exam. Not on supplemental O2. ABDOMEN: Colostomy in place RECTAL: Exam deferred EXTREMITIES: No edema. NEURO: AOx3. No focal weaknesses. SKIN: No jaundice. LABS: Lab Results Component Value Date WBC 6.0 09/18/2025 HGB 9.0 (L) 09/18/2025 HCT 29.1 (L) 09/18/2025 MCV 100.0 (H) 09/18/2025 PLT 199 09/18/2025 Lab Results Component Value Date ALT 15 09/15/2025 AST 29 09/15/2025 ALKPHOS 640 (H) 09/15/2025 BILITOT 0.4 09/15/2025 Lab Results Component Value Date NA 142 09/18/2025 K 3.3 (L) 09/18/2025 CL 109 09/18/2025 CO2 24 09/18/2025 GLUCOSE 91 09/18/2025 BUN 38 (H) 09/18/2025 CREATININE 1.38 (H) 09/18/2025 CALCIUM 7.5 (L) 09/18/2025 PROT 5.1 (L) 09/15/2025 ALBUMIN 2.5 (L) 09/15/2025 BILITOT 0.4 09/15/2025 AST 29 09/15/2025 ALT 15 09/15/2025 MG 1.9 09/16/2025 ALKPHOS 640 (H) 09/15/2025 EGFR 39 (L) 09/18/2025 No results found for: LIPASE IMAGING: Pertinent new radiology results/studies: Transthoracic echocardiogram (TTE) complete with PRN contrast, bubble, strain, and 3D order panel Technically difficult study. Left Ventricle: There is severe concentric hypertrophy. Systolic function is hyperdynamic with an ejection fraction over 70%. LV global longitudal strain is normal. Global longitudinal strain is -22.3%. There are no regional LV wall motion abnormalities. Left ventricle: There is moderate mid-cavity gradient of 52 mmHg at rest with no significant change with Valsalva. Aortic Valve: There is moderate stenosis. Aortic valve: In some of the parasternal views, there is evidence of an echodensity associated to the LVOT side of the aortic valve. This could represent a calcification. However, a vegetation cannot be completely ruled out with the available images. Consider further evaluation with blood cultures and/or a SERGIO if clinically indicated. Mitral Valve: There is severe stenosis, with a mean gradient of 11 mmHg. Pericardium: There is a small circumferential pericardial effusion. There is no echocardiographic evidence of tamponade. There is a left pleural effusion. ASSESSMENT AND PLAN: 80-year-old woman with multiple medical problems including underlying crest syndrome currently immobile with a significant sacral wound post hip replacement at [facility] a month ago who presented to the hospital with atypical chest pain and was noted to have dilated esophagus with retained material in it on a CTA performed to rule out a PE. Differential diagnosis includes esophageal dysmotility, achalasia, infectious esophagitis, or underlying malignancy. Patient is agreeable to an EGD for further evaluation. She is currently handling her own secretions and able to tolerate a liquid diet without issue. I have rescheduled her EGD for Saturday. Further recommendations pending those results. Signatures Board Certified, Gastroenterology and Internal Medicine [facility] [phone] [place] [id number] [email or web address] * Marcy Baum [facility]MISS[facility] ANALYST - 09/18/2025 8:30 AM EST Images from the original note were not included. Speech Language Pathology [facility] MISSION ANALYST BEDSIDE SWALLOW EVALUATION NAME: Iwona Romero DATE OF : 1945 ROOM: [address] [place] [address] RECOMMENDATIONS Recommendations: Dysphagia treatment Diet Solids Recommendation: No solids, see liquids (secondary to GI fx) Diet Liquids Recommendation: Thin liquids Liquid Administration Via: Cup, Straw Supervision Level: Set up with meals Compensatory Swallowing Strategies: Small bites/sips, Eat/feed slowly, Upright as possible for all oral intake, Remain upright for 20-30 minutes after meals Recommended Medication Route: PO Recommended Medication Administration: One pill at a time, Liquid form if possible MISSION ANALYST ASSESSMENT: MISSION ANALYST Assessment Results: Swallowing impairments Dysphagia Diagnosis: (concern for esophageal dysphagia, per GI) Evaluation/Treatment Tolerance: Patient tolerated treatment well Comments: Pt presents with oral and oropharyngeal swallow WFL, with concern for esophogeal dysphagia on imaging, secondary to achalasia and CREST. Pt tolerated all thin liquid and puree trials this session; increased solid consistencies were not trialed secondary to esophagela concerns. Pt was scheduled for EGD and possible dilitation yesterday, post-poned, may be completed today. Recommend continue with full liquid diet until esophageal concerns are addressed; will trial increasing solids oncemedically cleared. Recommend crushed meds in puree (d/t concern for retention in esophogus), however pt declined and requested to take whole w/ thin liquids. MISSION ANALYST to continue to follow. Medical Staff Made Aware: Yes Comments: RN and message sent to MD Pt ID by: Self, Full Name Bus System Operator Required: No TIME IN: 809 TIME OUT: 829 TOTAL TIME: 20 min SUBJECTIVE: Chart reviewed and patient cleared by RN for swallow evaluation; no concerns w/ full liquid diet ormeds. Upon arrival, patient lying in bed asleep but arousable to verbal stimuli, and agreeable to evaluation at this time. Patient reported no difficulties with swallowing solids, liquids, or meds. Patient with appropriate posture and head of bed attempted to be raised to appropriate height (>/=60 degrees) prior to PO trials, however pt declined fully upright position d/t back sore. Patient without complaint of acute pain during visit. Patient goal stated: water PRIOR LEVEL OF FUNCTIONING: at home - IDDSI 7 regular/0 thin liquids, current hospitalization - full liquid SWALLOW SCREEN: Principal Problem: Fluid overload Date Noted: 09/15/2025 Resolved Problems: * No resolved hospital problems. * SOB (shortness of breath) [R06.02] Pleural effusion [J90] Leg swelling [M79.89] Fluid overload [E87.70] Pneumonia of left lung due to infectious organism, unspecified part of lung [J18.9] Congestive heart failure, unspecified HF chronicity, unspecified heart failure type (CMS/HCC V24, CMS/HCC V28) [I50.9] No admission procedures for hospital encounter. Past Medical History Past Surgical History Medical History[1] Surgical History[2] IMAGING RESULTS MRI Brain No results found for this or any previous visit. CT Head No results found for this or any previous visit. Chest Portable No results found for this or any previous visit. Chest 2 View Results for orders placed during the hospital encounter of 09/15/25 XR Chest 2 Views Narrative INDICATION: Chest pain FINDINGS: Two views of the chest were obtained. Compared to multiple prior studies most recent fromJuly 24, 2024. Lung tracey are mildly hypoinflated. Airspace disease within the left lung base likely represents atelectasis and/or infiltrate with possible small effusion. Cardiomediastinal silhouette is normal in size and shape. Diffuse thoracic aortic calcification with mild tortuosity. Osteopenia and degenerative changes with reverse total right shoulder replacement, well-positioned and unchanged. Impression Left basilar atelectasis and/or infiltrate with small effusion suspected. -------- FINAL REPORT -------- Dictated By: Keith Santo Dictated Date: 09/15/2025 14:24 ET Assigned Physician: Keith Santo Reviewed and Electronically Signed By: Keith Santo Signed Date: 09/15/2025 14:27 ET Workstation ID: [id number] Transcribed By: Self Edit Transcribed Date: 09/15/2025 14:[address] Results for orders placed during the hospital encounter of 09/15/25 CT Angio Chest wo and/or w Contrast Narrative INDICATION: concern PE CT angiography chest with contrast. 3D Postprocessing. Comparison: None provided Findings: Mild cardiomegaly. Small pericardial effusion. The thoracic aorta is normal caliber. No acute pulmonary embolus. Markedly heterogeneous thyroid gland with multiple small nodules. Markedly dilated esophagus containing debris. No mediastinal lymphadenopathy. There are small to moderate bilateral pleural effusions. There are ground-glass and linear opacities and small foci of consolidation and volume loss within adjacent portions of the left lower lobe. Relatively mild dependent changes within the right lung. Mild bilateral apical scarring. There is a moderate amount of ascites within the visualized abdomen. There is edema of the soft tissues. Status post right shoulder replacement. No acute fracture. There is a left-sided Port-A-Cath with its tip at the cavoatrial junction. Impression 1. There is no evidence of pulmonary artery embolism. 2. There is generalized increased fluid status with vmzsg-ag-[id number] bilateral pleural effusions, moderate ascites, a small pericardial effusion and edema of the soft tissues. 3. Opacities within the left lower lobe may be secondary to atelectasis or pneumonia. 4. Markedly dilated esophagus containing debris. Suspect achalasia. This document has been electronically signed by: Lindsay Moura MD on 09/15/2025 17:55:20 ALLERGIES: Allergies[3] OBJECTIVE OXYGEN THERAPY: Patient Activity: At rest Oxygen Therapy: None (Room air) PAIN ASSESSMENT: TRACHEOSTOMY: DYSPHAGIA SYMPTOMS REPORTED: Weight loss FEEDING METHOD: Set Up Assistance ENDURANCE DURING MEALS: Good MENTAL STATUS: Alert Responsive Cooperative SWALLOW BASELINE ASSESSMENT: Respiratory Status: Room air Behavior/Cognition: Alert, Cooperative, Pleasant mood Dentition: Adequate, Some missing teeth (on R side, pt reported she changes well with mastication on L side, no denture usage) Patient Positioning: Upright in bed Baseline Vocal Quality: Within Functional Limits Volitional Cough: Strong Volitional Swallow: Within Functional Limits CURRENT DIET: Dietary Orders (From admission, onward) Start Ordered 09/17/25 1511 Dietary nutrition supplements Three times daily (TID); [facility]; Standard Oral Supplement Continuous Comments: Chocolate ensure with meals Question Answer Comment Frequency Three times daily (TID) Location [facility] Supplements Standard Oral Supplement 09/17/25 1511 09/17/25 1441 Adult diet [facility]; Modified Consistency Options for Liquidsand Solids; Full Liquid Diet effective now Question Answer Comment Location [facility] Diet Type (req) Modified Consistency Options for Liquids and Solids Modified Consistency Options for Liquids and Solids Full Liquid 09/17/25 1440 MOTOR SPEECH: Labial ROM: Within Functional Limits Labial Symmetry: Within Functional Limits Labial Strength: Within Functional Limits Lingual Appearance: [place] Lingual ROM: Other (Comment) (reduced elevation; otherwise WFL) Lingual Symmetry: Within Functional Limits Lingual Strength: Within Functional Limits Facial ROM: Within Functional Limits Facial Symmetry: Within Functional Limits Mandible: Within Functional Limits Vocal Quality: Within Functional Limits Intelligibility: Intelligible 100% CONSISTENCIES ASSESSED Yes Thin Presentation: Self Fed, Cup, Straw Oral: Within functional limits Pharyngeal: Within Functional Limits Amount: x 1 consecutive cup edge (2 swallows total) water, x2 consecutive straw sips (7 swallows total) apple juice, self fed Comments: Appropriate oral acceptance and gross oral function, with timely swallow initiation. No overt clinical s/s of pulmonary compromise observed across trials. Puree Presentation: Spoon, Self Fed Oral: Within functional limits Pharyngeal: Within Functional Limits Amount: x 2 apple sauce Comments: Appropriate oral acceptance and preparation, with timely swallow initiation. No overt clinical s/s of pulmonary compromise observed across trials. COGNITION: Overall Cognitive Status: Within Functional Limits Arousal/Alertness: Appropriate responses to stimuli Following Commands: Follows all commands and directions without difficulty MISSION ANALYST ASSESSMENT: MISSION ANALYST Assessment Results: Swallowing impairments Dysphagia Diagnosis: (concern for esophageal dysphagia, per GI) Evaluation/Treatment Tolerance: Patient tolerated treatment well Comments: Pt presents with oral and oropharyngeal swallow WFL, with concern for esophogeal dysphagia on imaging, secondary to achalasia and CREST. Pt tolerated all thin liquid and puree trials this session; increased solid consistencies were not trialed secondary to esophagela concerns. Pt was scheduled for EGD and possible dilitation yesterday, post-poned, may be completed today. Recommend continue with full liquid diet until esophageal concerns are addressed; will trial increasing solids oncemedically cleared. Recommend crushed meds in puree (d/t concern for retention in esophogus), however pt declined and requested to take whole w/ thin liquids. MISSION ANALYST to continue to follow. Medical Staff Made Aware: Yes Comments: RN and message sent to MD PLAN OF CARE MISSION ANALYST PLAN Treatment/Interventions: Swallow function MISSION ANALYST Plan: Skilled MISSION ANALYST MISSION ANALYST - Evaluation Status: Complete Diet Recommendations: Full thin liquid diet DISCHARGE RECOMMENDATIONS No Speech-Language Pathology (MISSION ANALYST) services/needs at next level of care. EDUCATION Education Documentation Modified Diet Training, taught by Marcy Baum CCC-MISSION ANALYST at 09/18/2025 9:30 AM. Learner: Patient Readiness: Acceptance Method: Explanation Response: Verbalizes Understanding, Needs Reinforcement, Refused Teaching Comment: declined recommendation for crushed medications, otherwise accepted education Education Comments No comments found. GOALS Encounter Problems Encounter Problems (Active) Template: Speech Therapy Problem: Swallowing Dates: Start: 09/18/25 Goal: Patient will tolerate the least restrictive diet consistency to allow for safe consumption ofdaily meals Dates: Start: 09/18/25 Expected End: 09/18/25 Encounter Problems (Resolved) There are no resolved problems. 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 (calcinosis, Raynaud's phenomenon, esophageal dysfunction, sclerodactyly, telangiectasia) (CMS/HCC V24, CMS/HCC V28) GERD (gastroesophageal reflux disease) Mitochondrial myopathies Pulmonary fibrosis (CMS/HCC V24, CMS/HCC V28) Pulmonary HTN (CMS/HCC V24, CMS/HCC V28) Scleroderma (CMS/HCC V24, CMS/HCC V28) Sjogren syndrome (CMS/HCC V24) [2] Past Surgical History: Procedure Laterality Date COLONOSCOPY COLOSTOMY ESOPHAGOGASTRODUODENOSCOPY FOOT SURGERY Bilateral BONIONS HIP SURGERY Left 06/11/[address] HYSTERECTOMY SHOULDER SURGERY Right [3] Allergies Allergen Reactions Epinephrine Other Other reaction(s): extreme shaking, shake Violent shaking rigor Bee Venom Protein (Honey Bee) Swelling Cyclosporine Other reaction(s): eyes swell shut, Other (see comments) Other reaction(s): eyes swell shut Mushroom Nausea And Vomiting Niacin Rash * Elena García, PT - 09/17/2025 3:40 PM EST [facility] ACUTE CARE PT EVALUATION Iwona Romero 1945 Ambulation: Walking Assistance: Minimum assistance Device: Rolling walker Distance Ambulated (ft): (3 to 4 steps to transfer to commode.) PLOF: Level of [place]: Needs assistance with mobility, Needs assistance with functional transfers Lives With: Spouse (they have 24 hour APPLICATION LEAD. There is a son who works) Receives Help From: childcare attendant Home Adaptive Equipment: Walker - rolling, Wheelchair - power Home Living Comments: [facility] facility, ramp to enter building. One level apt DME Needs: commode PT Discharge Recommendation: Home PT Diagnosis: ICD-10-CM ICD-9-CM 1. Pneumonia of left lung due to infectious organism, unspecified part of lung J18.9 486 2. SOB (shortness of breath) R06.[address] Angio Chest wo and/or w Contrast CT Angio Chest wo and/or w Contrast 3. Leg swelling M79.89 729.81 Vascular US Duplex Lower Extremity Venous Bilateral Vascular US Duplex Lower Extremity Venous Bilateral 4. Pleural effusion J90 511.9 5. Congestive heart failure, unspecified HF chronicity, unspecified heart failure type (CMS/HCC V24, CMS/HCC V28) I50.9 428.0 Transthoracic echocardiogram (TTE) complete with PRN contrast, bubble, strain, and 3D order panel Transthoracic echocardiogram (TTE) complete with PRN contrast, bubble, strain, and 3D order panel 6. Fluid overload E87.70 276.69 Medical History[1] Surgical History[2] PT Received On: 09/17/2025 SUBJECTIVE I would transfer to motorized W/C and go to bathroom when I am home. I do not need a commode PT Time Calculation: PT Time Calculation PT Start Time: 1540 PT Stop Time: 1625 PT Time Calculation (min): 45 min OBJECTIVE Precautions: Precautions Medical Precautions: Fall Risk Safety Interventions: Call white within reach, Bed alarm, Side rails up x2 LLE Weight Bearing Status: As Tolerated Orthopedic Precautions: Posterior Hip Precautions (pt reports she has to follow posterior hip precaution. L THR was done in [facility] Aug 20 2025. She reported she had been walking in rehab as she could not remember if there is WB restrictions) Cognition: Cognition Overall Cognitive Status: Within Functional Limits Arousal/Alertness: Appropriate responses to stimuli Orientation Level: Oriented X4 Following Commands: Follows all commands and directions without difficulty Safety Judgment: Good awareness of safety precautions Vital Signs: Oxygen Therapy Oxygen Therapy: None (Room air) Pain Assessment: Pain Assessment: 0-10 Pain Score: 8 Pain Type: Chronic pain Pain Location: Coccyx (she has wound there) Pain Interventions: (pt is turned to one side to relive the pressure on coccyx) Home Living: Home Living Lives With: Spouse (they have 24 hour APPLICATION LEAD. There is a son who works) Home Adaptive Equipment: Walker - rolling, Wheelchair - power Home Living Comments: [facility] Living facility, ramp to enter building. One level apt Prior Function: Prior Function Level of [place]: Needs assistance with mobility, Needs assistance with functional transfers Ambulation Status: Household wheelchair use (pt said she walked 30 ft once in rehab with RW. Lately, she has not been able to do much in rehab) Receives Help From: childcare attendant Indoor Mobility Assistance: Needed Some Help Prior Device Use: Walker, Motorized wheelchair or scooter Functional Assessments: Static Standing Balance Static Standing-Level of Assistance: Minimum assistance Static Standing-Balance Support: Right upper extremity supported, Left upper extremity supported Static Standing-Comment/Number of Minutes: fair to fair + with RW Dynamic Standing Balance Dynamic Standing-Level of Assistance: Minimum assistance Dynamic Standing-Balance: Ambulation Dynamic Standing-Comments: fair to fair+ with RW Bed Mobility Sitting to Lying Assistance: Maximum assistance, Assist x2 Lying to Sitting Assistance: Maximum assistance Bed Mobility Comments: pt preferred to go towards her right side to sit up @ EOB Transfers Sit to Stand Assistance: Moderate assistance Sit to Stand Deficit: Assist for lift off, Steadying, Verbal cueing Toilet Transfer Assistance: Minimum assistance Toilet Transfer Deficit: Increased time to complete, Steadying, Verbal cueing Transfer Comments: pt took 3 to 4 steps bed to commode then another 4 steps back to bed with RW. She also did 3 sidesteps to HOB Ambulation Walking Assistance: Minimum assistance Device: Rolling walker Distance Ambulated (ft): (3 to 4 steps to transfer to commode.) Extremity Assessments: RUE Assessment RUE Assessment: Within Functional Limits LUE Assessment LUE Assessment: Within Functional Limits RLE Assessment RLE Assessment: Impaired RLE Assessment Comments: WFL for sit to stand however needs assist for bed mobility. LLE Assessment LLE Assessment: Impaired LLE Assessment Comments: WFL for sit to stand howeve needs assist for bed mobility. Education: Education Documentation Mobility Training, taught by Elena García, PT at 09/17/2025 3:40 PM. Learner: Patient Readiness: Acceptance Method: Explanation Response: Verbalizes Understanding Comment: safe sit to stand, bedsisde commode for night time use. Home PT Education Comments No comments found. ASSESSMENT Pt insisted on going upon D/C and refused rehab. Continue PT to work on transfers and safe D/C to home with recommendation of home PT. PT Assessment: PT Assessment PT Assessment Results: Decreased strength, Decreased endurance, Impaired balance, Impaired gait, Decreased mobility Prognosis: Good Evaluation/Treatment Tolerance: Patient tolerated treatment well Medical Staff Made Aware: Yes Comments: (PT notified nurse of her transfer status) PLAN PT Plan: During acute care stay: PT Plan: Skilled PT PT Frequency: 2-5 days per week PT Treatments per day: PRN PT Discharge Recommendations: Home PT Equipment Recommendations: walker Goals: Goals: Encounter Problems Encounter Problems (Active) Template: Physical Therapy Problem: PT Short Term Goals Dates: Start: 09/17/25 Goal: PT STG 1 Patient will transfer sit<>stand safely Close Supervision with RW Dates: Start: 09/17/25 Expected End: 10/01/25 Goal: PT STG 2 Patient will transfer supine<>sit min asssit Dates: Start: 09/17/25 Expected End: 10/01/25 Encounter Problems (Resolved) There are no resolved problems. 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 (calcinosis, Raynaud's phenomenon, esophageal dysfunction, sclerodactyly, telangiectasia) (CMS/HCC V24, CMS/HCC V28) GERD (gastroesophageal reflux disease) Mitochondrial myopathies Pulmonary fibrosis (CMS/HCC V24, CMS/HCC V28) Pulmonary HTN (CMS/HCC V24, CMS/HCC V28) Scleroderma (CMS/HCC V24, CMS/HCC V28) Sjogren syndrome (CMS/HCC V24) [2] Past Surgical History: Procedure Laterality Date COLONOSCOPY COLOSTOMY ESOPHAGOGASTRODUODENOSCOPY FOOT SURGERY Bilateral BONIONS HIP SURGERY Left 06/11/[address] HYSTERECTOMY SHOULDER SURGERY Right * Beata Logan RN - 09/17/2025 2:25 PM EST CM Progress Note KIKO: 09/19-09/20 Barriers: IV abx, IV Lasix, Wound consult, EGD, PT eval Dispo: Home with 24 hour APPLICATION LEAD Care and VNA 09/17 HCP received and uploaded - Elda * Mikael Balderas MD - 09/17/2025 12:50 PM EST Images from the original note were not included. [facility] PROGRESS NOTE Date: 09/17/2025 Author: Mikael Balderas MD Patient ID: Iwona Romero is a 80 y.o. female : 1945 MR#: [id number] SUBJECTIVE Subjective Patient seen and examined by bedside Vitals, labs and images reviewed No overnight events EGD for achalasia today Troponins downtrending, BNP 961. TTE performed pending report Continue IV Zosyn for pneumonia Allergies Epinephrine, Bee venom protein (honey bee), Cyclosporine, Mushroom, and Niacin Current Medications: MEDSSCHEDULED[1] MEDSCONTINUOUS[2] MEDSPRN[3] OBJECTIVE Vitals: 09/17/25 0321 09/17/25 0325 09/17/25 0709 09/17/25 1046 BP: (!) 112/49 110/51 (!) 118/49 (!) 109/48 BP Location: Left arm Left arm Patient Position: Lying Lying Pulse: 92 87 93 98 Resp: Temp: 36.2 ??C (97.2 ??F) 36 ??C (96.8 ??F) 35.9 ??C (96.6 ??F) TempSrc: Temporal Temporal SpO2: 100% 95% Weight: Height: Physical Exam General : Pt lying in bed in no acute distress Head : NC/AT Eyes : EOMI Resp : CTA B/L, no audible wheezing CVS : RRR, no audible murmurs GI : Abd Soft, NT, +colostomy Neuro : Awake, alert, follows commands LABS HEMATOLOGY Lab Results Component Value Date WBC 7.2 09/17/2025 HGB 9.7 (L) 09/17/2025 HCT 31.9 (L) 09/17/2025 MCV 100.0 (H) 09/17/2025 PLT 231 09/17/2025 CHEMISTRY Lab Results Component Value Date GLUCOSE 113 (H) 09/17/2025 NA 140 09/17/2025 K 3.6 09/17/2025 CO2 23 09/17/2025 CL 107 09/17/2025 BUN 35 (H) 09/17/2025 CREATININE 1.17 (H) 09/17/2025 EGFR 47 (L) 09/17/2025 CALCIUM 7.5 (L) 09/17/2025 MG 1.9 09/16/2025 ANIONGAP 10 09/17/2025 Imaging: CT Angio Chest wo and/or w Contrast Narrative: INDICATION: concern PE CT angiography chest with contrast. 3D Postprocessing. Comparison: None provided Findings: Mild cardiomegaly. Small pericardial effusion. The thoracic aorta is normal caliber. No acute pulmonary embolus. Markedly heterogeneous thyroid gland with multiple small nodules. Markedly dilated esophagus containing debris. No mediastinal lymphadenopathy. There are small to moderate bilateral pleural effusions. There are ground-glass and linear opacities and small foci of consolidation and volume loss within adjacent portions of the left lower lobe. Relatively mild dependent changes within the right lung. Mild bilateral apical scarring. There is a moderate amount of ascites within the visualized abdomen. There is edema of the soft tissues. Status post right shoulder replacement. No acute fracture. There is a left-sided Port-A-Cath with its tip at the cavoatrial junction. Impression: 1. There is no evidence of pulmonary artery embolism. 2. There is generalized increased fluid status with [id number] bilateral pleural effusions, moderate ascites, a small pericardial effusion and edema of the soft tissues. 3. Opacities within the left lower lobe may be secondary to atelectasis or pneumonia. 4. Markedly dilated esophagus containing debris. Suspect achalasia. This document has been electronically signed by: Lindsay Moura MD on 09/15/2025 17:55:20 Vascular US Duplex Lower Extremity Venous Bilateral INDICATION: bilateral leg pain and swelling. FINDINGS: A duplex venous ultrasound was performed of both lower extremities. The common femoral, superficial femoral and popliteal veins demonstrate color- flow with augmentation and compressibility.The visualized calf veins also demonstrate color-flow. Soft tissue edematous changes noted bilaterally. Incidental note made of small amount of ascites in the right lower quadrant. CONCLUSION: No evidence of deep vein thrombosis in either lower extremity. -------- FINAL REPORT -------- Dictated By: Keith Santo Dictated Date: 09/15/2025 15:09 ET Assigned Physician: Keith Santo Reviewed and Electronically Signed By: Keith Santo Signed Date: 09/15/2025 15:10 ET Workstation ID: [id number] Transcribed By: Self Edit Transcribed Date: 09/15/2025 15:09 ET XR Chest 2 Views Narrative: INDICATION: Chest pain FINDINGS: Two views of the chest were obtained. Compared to multiple prior studies most recent fromJuly 24, 2024. Lung tracey are mildly hypoinflated. Airspace disease within the left lung base likely represents atelectasis and/or infiltrate with possible small effusion. Cardiomediastinal silhouette is normal in size and shape. Diffuse thoracic aortic calcification with mild tortuosity. Osteopenia and degenerative changes with reverse total right shoulder replacement, well-positioned and unchanged. Impression: Left basilar atelectasis and/or infiltrate with small effusion suspected. -------- FINAL REPORT -------- Dictated By: Keith Santo Dictated Date: 09/15/2025 14:24 ET Assigned Physician: Keith Santo Reviewed and Electronically Signed By: Keith Santo Signed Date: 09/15/2025 14:27 ET Workstation ID: [id number] Transcribed By: Self Edit Transcribed Date: 09/15/2025 14:24 ET ASSESSMENT & PLAN 80-year-old female with a past medical history to include recent left hip replacement at [facility] with subsequent 1 month stay at rehabilitation hospital, CREST syndrome, myelodysplastic syndrome amongst others admitted due to evaluation of chest pain. Workup on admission revealing for likely pneumonia with bilateral moderate pleural effusions. Chest pain Troponins down trending 84->31 ECG does not show any ischemic changes TTE performed-awaiting report Possible aspiration pneumonia in the setting of achalasia Bilateral pleural effusion BNP 961 Received IV vancomycin and Zosyn initially. MRSA swab negative. IV vancomycin discontinued 09/16 CTA chest performed showed left lower lobe opacities consistent with pneumonia CTA chest showed esophageal dilation consistent with achalasia GI evaluation appreciated. 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 If you have any questions, please contact the author of this report for clarification. [1] apixaban, 2.5 mg, oral, BID collagenase, , Topical, Daily dorzolamide, 1 drop, Both Eyes, TID furosemide, 40 mg, intravenous, BID 09-17 gabapentin, 200 mg, oral, Nightly lidocaine, 1 patch, Topical, Daily metoprolol succinate, 100 mg, oral, Daily pantoprazole, 40 mg, intravenous, q12h SILVANO ambrisentan, 5 mg, oral, Daily treprostinil diolamine, 3 mg, oral, TID piperacillin-tazobactam, 4.5 g, intravenous, q8h polyetheylene glycol, 17 g, oral, Nightly QUEtiapine, 25 mg, oral, Nightly sildenafil, 20 mg, oral, TID sodium chloride, 10 mL, intravenous, BID [2] [3] PRN medications: acetaminophen, ondansetron, oxyCODONE, [COMPLETED] Insert peripheral IV AND Maintain IV access AND [COMPLETED] Saline lock IV AND sodium chloride AND sodium chloride * Tatyana Parada RN - 09/17/2025 12:18 PM EST Images from the original note were not included. Wound Care Initial Consult Visit Date: 09/17/2025 Patient Name: Iwona Romero Date of : 1945 Reason for Consult: Wound RN Consult received to assess sacral wound and evaluate ostomy and recommend topical treatment. Patient Active Problem List Diagnosis Date Noted Fluid overload 09/15/2025 Congestive heart failure (CHF) ([facility] V24, [facility] V28) 08/10/2025 Calcinosis, Raynaud phenomenon, esophageal dysfunction, sclerodactyly, and telangiectasia (CREST) syndrome ([facility] V24, [facility] V28) 08/10/2025 Aplastic anemia, unspecified ([facility] V24) 08/10/2025 Hyperlipidemia 08/10/2025 Hypothyroidism 08/10/2025 Insomnia 08/10/2025 Primary pulmonary hypertension ([facility] V24, [facility] V28) 08/10/2025 Recurrent aspiration pneumonia ([facility] V24, [facility] V28) 08/10/2025 Sjogren syndrome, unspecified ([facility] V24) 08/10/2025 Underweight 08/10/2025 Osteoarthritis of left knee 03/01/2025 Displaced intertrochanteric fracture of left femur, subsequent encounter for closed fracture with routine healing 07/10/2024 Chronic kidney disease, stage 2 (mild) 05/15/2024 Osteoarthritis of first carpometacarpal joint of left hand 02/25/2024 Iron deficiency anemia due to chronic blood loss 06/13/2023 Pulmonary hypertension ([facility] V24, [facility] V28) 01/18/2023 Myeloid dysplasia ([facility] V24, [facility] V28) 04/25/2022 Normocytic anemia 04/25/2022 H/O total shoulder replacement 11/09/2021 Degeneration of lumbar intervertebral disc 08/04/2021 Spinal stenosis of lumbar region 08/04/2021 Spondylosis without myelopathy 08/04/2021 Rectal prolapse 04/27/2021 Essential hypertension 01/08/2020 Hyponatremia 01/08/2020 Carpal tunnel syndrome of left wrist 06/19/2019 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/20/2018 Inflammation of sacroiliac joint ([facility] V24) 07/06/2017 Wound History: Patient with hx of hip replacement one month ago at [facility] and 1 month stay in rehabilitation hospital. Sacral pressure injury most likely related to immobility/ decreased bed activity r/p to hip fracture. Nutritional Status: Pertinent Labs: Albumin Date Value Ref Range Status 09/15/2025 2.5 (L) 3.2 - 5.0 g/dL Final WBC Date Value Ref Range Status 09/17/2025 7.2 4.8 - 10.8 K/mcL Final Hemoglobin A1C Date Value Ref Range Status 08/18/2025 4.9 <6.5 % Final Wound Assessment: Wound Pressure Injury 09/16/25 Sacrum (Active) Wound Image Wound Assessment: Wound is yellow 100% with thick slough, reddened surrounding skin, prominent sacral area and tenderto touch 09/17/25 111 Wound Bed Tissue Assessment Yellow;Necrotic 09/17/25 1115 Anne-Wound Assessment Unable to assess 09/17/25 0240 Wound Length (cm) 4.5 cm 09/17/25 1115 Wound Width (cm) 3 cm 09/17/25 1115 Wound Surface Area (cm^2) 10.6 cm^2 09/17/25 1115 Wound Depth (cm) 0.3 cm 09/17/25 1115 Wound Volume (cm^3) 2.121 cm^3 09/17/25 1115 Treatments Cleansed 09/17/25 1115 Dressing Enzymatic debriders;Moisture barrier;Moist to dry;Foam 09/17/25 1115 Dressing Changed New 09/17/25 1115 Dressing Status Clean;Dry;Intact 09/17/25 0240 State of Healing Non-healing 09/17/25 1115 Pressure Injury Stage U 09/17/25 1115 Wound Pressure Injury 09/16/25 Buttocks Right (Active) Wound Image Wound Assessment: Small stage 2 09/17/25 1117 Wound Bed Tissue Assessment Coleridge 09/17/25 1117 Anne-Wound Assessment Unable to assess 09/17/25 0242 Treatments Cleansed 09/16/25 1041 Dressing Moisture barrier;Foam 09/17/25 1117 Dressing Changed New 09/16/25 1041 Dressing Status Clean;Dry;Intact 09/17/25 0242 Pressure Injury Stage 2 09/17/25 1117 Wound Pressure Injury 09/17/25 Heel Left (Active) Wound Image Small area of purple discloloration 09/17/25 1113 Wound Bed Tissue Assessment Purple 09/17/25 1113 Dressing Other (Comment) 09/17/25 1113 Pressure Injury Stage DTPI 09/17/25 1113 Patient with hx of colostomy in 2021 r/t rectal prolapse. She is using one piece patricio with convex and therefore immediate peristomal skin reddened. She is using 7/8 inch (22 mm) pre-sized which is too small and wafer partially sits on outer stoma and causing red irritation/wound to stoma. I instructed patient that opening should be increased to 1 1/8 inch (29 mm). She stated understanding. I applied one piece convex cut to fit appliance with thin seal. Patient typically changes appliance every 4-5 days, Support Surface: Patient is on Isotour bed. Needs Wise for turn and reposition q 2 hr and avoid sacral postioning unless supine for meals. Place one pillow being back- rolled or folded pillow, and one rolled under lower buttock/ thigh so nothing touches sacral area. Continue to offload heels with waffle boots. Wound Summary Assessment: See above Wound Plan: 1. Sacrum- using scissors cut off thicker areas of yellow slough and now it is still 100 % yellow but much thinner. Recommending zinc to anne wound, Santyl- nikle thickness onto wound, followed by NSS moistened 2x2 gauze, allevyn foam. Rt lower buttock small stage 2 PI- apply zinc barrier cream, allevyn. Change daily. I will call for wound clinic appointment on Saturday as it is closed today. Provided seat cushion for home. 2. Small DTI on LT heel- offload both in waffle boots. Education: Encouraged to make appointment to follow up with ostomy care with outpatient clinic. Appointment scheduled on 09/23/25 at 9:30 09/17/2025 12:19 PM EST * HAI Levy - 09/17/2025 10:00 AM EST Speech Language Pathology Therapy session was attempted for Iwona Romero by HAI Levy on 09/17/2025. The patient was unable to be seen for the following reason(s): Pt NPO for Endo today, possible dilation. Per RN: no difficulty swallowing multiple meds at once. Plan for return visit: Tomorrow * Matt Samson DO - 09/17/2025 9:22 AM EST GI PROGRESS NOTE Acute overnight events: No acute overnight events. ROS: Patient with ongoing dysphagia. No odynophagia. No diarrhea. No shortness of breath. No night sweats. No cough. PHYSICAL EXAM: Visit Vitals BP (!) 118/49 (BP Location: Left arm, Patient Position: Lying) Pulse 93 Temp 36 ??C (96.8 ??F) (Temporal) Resp 15 Ht 1.6 m (63 ) Wt 47.6 kg (105 lb) SpO2 95% BMI 18.60 kg/m?? OB Status Postmenopausal Smoking Status Never BSA 1.47 m?? APPEARANCE: Frail. Ill appearing. Elderly. HEART: RRR LUNG: CTA. Not on supplemental O2 ABDOMEN: RECTAL: Exam deferred EXTREMITIES: No edema. NEURO: Mild edema SKIN: No rashes. No bruising. No jaundice. LABS: Lab Results Component Value Date WBC 7.2 09/17/2025 HGB 9.7 (L) 09/17/2025 HCT 31.9 (L) 09/17/2025 MCV 100.0 (H) 09/17/2025 PLT 231 09/17/2025 Lab Results Component Value Date ALT 15 09/15/2025 AST 29 09/15/2025 ALKPHOS 640 (H) 09/15/2025 BILITOT 0.4 09/15/2025 Lab Results Component Value Date NA 140 09/17/2025 K 3.6 09/17/2025 CL 107 09/17/2025 CO2 23 09/17/2025 GLUCOSE 113 (H) 09/17/2025 BUN 35 (H) 09/17/2025 CREATININE 1.17 (H) 09/17/2025 CALCIUM 7.5 (L) 09/17/2025 PROT 5.1 (L) 09/15/2025 ALBUMIN 2.5 (L) 09/15/2025 BILITOT 0.4 09/15/2025 AST 29 09/15/2025 ALT 15 09/15/2025 MG 1.9 09/16/2025 ALKPHOS 640 (H) 09/15/2025 EGFR 47 (L) 09/17/2025 No results found for: LIPASE IMAGING: No new GI imaging. IMPRESSION: 1. Pneumonia of left lung due to infectious organism, unspecified part of lung 2. SOB (shortness of breath) 3. Leg swelling 4. Pleural effusion 5. Congestive heart failure, unspecified HF chronicity, unspecified heart failure type ([facility] V24, [facility] V28) PLAN: The patient is hemodynamically stable without signs of acute distress. She does not show any signs of respiratory distress. She is not on supplemental O2 and she is speaking in full sentences. During my evaluation today, she told me that she could not express her mind from her duringmy initial consultation yesterday. She would prefer to have the procedure done during this admission and not in 2 weeks in the outpatient setting as she told me yesterday. The reason for that being that her has dementia and she does not want to be in and out of the house because he is disoriented. I will ask anesthesia to review her chart. She is NPO. If she is cleared by anesthesia we will proceed with an EGD today. Remain NPO. IV PPI. Patient precautions. Further recommendations in terms of the EGD timing once anesthesia formally reviews her case. Orders Placed This Encounter Procedures Hospital bed MRSA molecular study XR Chest 2 Views CBC and differential Troponin I high sensitivity APTT Protime-INR CBC auto differential B-Type Natriuretic Peptide (BNP) Comprehensive Metabolic Panel (CMP) Lactate Basic metabolic panel Magnesium CBC and differential Procalcitonin C-reactive protein Troponin I high sensitivity CBC auto differential Troponin I high sensitivity CBC and differential Basic metabolic panel CBC auto differential Adult diet [facility]; Cardiac; Cardiac Continuous Pulse Oximetry ACTIVITY As tolerated Vital Signs (specify frequency) Pulse Oximetry Maintain IV access Apply graduated compression stockings (GCS) Apply Sequential compression device (SCD) Intake and output Weigh patient Cardiac Monitoring for Chronic CHF Full code - Default Wound Care Inpatient Follow-Up Inpatient consult to Nutrition Services Inpatient consult to Gastroenterology PT eval and treat MISSION ANALYST eval and treat MISSION ANALYST eval and treat ECG 12 lead (Now) ECG 12 lead PRN Transthoracic echocardiogram (TTE) complete with PRN contrast, bubble, strain, and 3D order panel Insert peripheral IV Insert peripheral IV Saline lock IV Admit to Inpatient ED to floor bed request Vascular US Duplex Lower Extremity Venous Bilateral CT Angio Chest wo and/or w Contrast XR CHEST 2 VIEWS INSERT PERIPHERAL IV INSERT PERIPHERAL IV SALINE LOCK IV CONTINUOUS PULSE OXIMETRY ACTIVITY VITAL SIGNS PULSE OXIMETRY MAINTAIN IV ACCESS APPLICATION GRADUATED COMPRESSION STOCKINGS SEQUENTIAL COMPRESSION DEVICE INTAKE AND OUTPUT MEASURE WEIGHT CARDIAC MONITORING CT ANGIO CHEST WO AND/OR W CONTRAST VAS US DUPLEX LOWER EXT VENOUS BILAT ED TO FLOOR BED REQUEST FULL CODE DEFAULT ADULT DIET ADMIT TO INPATIENT WOUND CARE INPATIENT FOLLOW-UP IP CONSULT TO NUTRITION SERVICES IP CONSULT TO GASTROENTEROLOGY [facility]ISSION ANALYST EVAL AND TREAT [facility]ISSION [facility]ST EVAL AND TREAT PT EVAL AND TREAT HOSPITAL BED . Signatures Board Certified, Gastroenterology and Internal Medicine Gastroenterology and Hepatology Practice [facility] [email or web address] [phone] [place] [address] [email or web address] * Shyla Gómez RN - 09/17/2025 4:44 AM EST Goals: Clinical Goals for the Shift: Pain managmenet Identify possible barriers to meeting goals/advancing plan of care: Need for ABX Stability of the patient: Moderately Stable - Low risk of patient condition declining or worsening End of Shift Summary: Patient progressing appropriately * Mikael Balderas MD - 09/16/2025 12:22 PM EST Images from the original note were not included. [facility] PROGRESS NOTE Date: 09/16/2025 Author: Mikael Balderas MD Patient ID: Iwona Romero is a 80 y.o. female : 1945 MR#: [id number] SUBJECTIVE Subjective Patient seen and examined by bedside Vitals, labs and images reviewed Troponins downtrending, BNP 961. TTE pending MRSA swab negative. Will discontinue IV vancomycin. Continue IV Zosyn MISSION ANALYST evaluation pending Allergies Epinephrine, Bee venom protein (honey bee), Cyclosporine, Mushroom, and Niacin Current Medications: MEDSSCHEDULED[1] MEDSCONTINUOUS[2] MEDSPRN[3] OBJECTIVE Vitals: 09/16/25 0416 09/16/25 0649 09/16/25 0844 09/16/25 1101 BP: 101/52 (!) 111/43 115/52 115/61 BP Location: Left arm;Upper Left arm;Upper Left arm Patient Position: Lying Lying Lying Pulse: 83 76 82 83 Resp: 16 16 18 Temp: 36.8 ??C (98.2 ??F) 36.4 ??C (97.6 ??F) 36.1 ??C (97 ??F) TempSrc: Oral Oral SpO2: 93% 96% 94% Weight: Height: Physical Exam General : Pt lying in bed in no acute distress Head : NC/AT Eyes : EOMI Resp : CTA B/L, no audible wheezing CVS : RRR, no audible murmurs GI : Abd Soft, NT, +colostomy Neuro : Awake, alert, follows commands LABS HEMATOLOGY Lab Results Component Value Date WBC 4.1 (L) 09/16/2025 HGB 8.6 (L) 09/16/2025 HCT 27.8 (L) 09/16/2025 MCV 100.0 (H) 09/16/2025 PLT 140 09/16/2025 CHEMISTRY Lab Results Component Value Date GLUCOSE 106 (H) 09/16/2025 NA 140 09/16/2025 K 3.4 (L) 09/16/2025 CO2 26 09/16/2025 CL 108 09/16/2025 BUN 36 (H) 09/16/2025 CREATININE 0.97 09/16/2025 EGFR 59 (L) 09/16/2025 CALCIUM 7.2 (L) 09/16/2025 MG 1.9 09/16/2025 ANIONGAP 6 09/16/2025 Imaging: CT Angio Chest wo and/or w Contrast Narrative: INDICATION: concern PE CT angiography chest with contrast. 3D Postprocessing. Comparison: None provided Findings: Mild cardiomegaly. Small pericardial effusion. The thoracic aorta is normal caliber. No acute pulmonary embolus. Markedly heterogeneous thyroid gland with multiple small nodules. Markedly dilated esophagus containing debris. No mediastinal lymphadenopathy. There are small to moderate bilateral pleural effusions. There are ground-glass and linear opacities and small foci of consolidation and volume loss within adjacent portions of the left lower lobe. Relatively mild dependent changes within the right lung. Mild bilateral apical scarring. There is a moderate amount of ascites within the visualized abdomen. There is edema of the soft tissues. Status post right shoulder replacement. No acute fracture. There is a left-sided Port-A-Cath with its tip at the cavoatrial junction. Impression: 1. There is no evidence of pulmonary artery embolism. 2. There is generalized increased fluid status with [id number] bilateral pleural effusions, moderate ascites, a small pericardial effusion and edema of the soft tissues. 3. Opacities within the left lower lobe may be secondary to atelectasis or pneumonia. 4. Markedly dilated esophagus containing debris. Suspect achalasia. This document has been electronically signed by: Lindsay Moura MD on 09/15/2025 17:55:20 Vascular US Duplex Lower Extremity Venous Bilateral INDICATION: bilateral leg pain and swelling. FINDINGS: A duplex venous ultrasound was performed of both lower extremities. The common femoral, superficial femoral and popliteal veins demonstrate color- flow with augmentation and compressibility.The visualized calf veins also demonstrate color-flow. Soft tissue edematous changes noted bilaterally. Incidental note made of small amount of ascites in the right lower quadrant. CONCLUSION: No evidence of deep vein thrombosis in either lower extremity. -------- FINAL REPORT -------- Dictated By: Keith Santo Dictated Date: 09/15/2025 15:09 ET Assigned Physician: Keith Santo Reviewed and Electronically Signed By: Keith Santo Signed Date: 09/15/2025 15:10 ET Workstation ID: [id number] Transcribed By: Self Edit Transcribed Date: 09/15/2025 15:09 ET XR Chest 2 Views Narrative: INDICATION: Chest pain FINDINGS: Two views of the chest were obtained. Compared to multiple prior studies most recent fromJuly 24, 2024. Lung tracey are mildly hypoinflated. Airspace disease within the left lung base likely represents atelectasis and/or infiltrate with possible small effusion. Cardiomediastinal silhouette is normal in size and shape. Diffuse thoracic aortic calcification with mild tortuosity. Osteopenia and degenerative changes with reverse total right shoulder replacement, well-positioned and unchanged. Impression: Left basilar atelectasis and/or infiltrate with small effusion suspected. -------- FINAL REPORT -------- Dictated By: Keith Santo Dictated Date: 09/15/2025 14:24 ET Assigned Physician: Keith Santo Reviewed and Electronically Signed By: Keith Santo Signed Date: 09/15/2025 14:27 ET Workstation ID: [id number] Transcribed By: Self Edit Transcribed Date: 09/15/2025 14:24 ET ASSESSMENT & PLAN 80-year-old female with a past medical history to include recent left hip replacement at [facility] with subsequent 1 month stay at rehabilitation hospital, CREST syndrome, myelodysplastic syndrome amongst others admitted due to evaluation of chest pain. Workup on admission revealing for likely pneumonia with bilateral moderate pleural effusions. Chest pain Troponins down trending 84->31 ECG does not show any ischemic changes TTE pending Possible pneumonia Bilateral pleural effusion BNP 961 Received IV vancomycin and Zosyn initially. MRSA swab negative. 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 Word substitution may have occurred and may have gone unnoticed and uncorrected. [1] apixaban, 2.5 mg, oral, BID dorzolamide, 1 drop, Both Eyes, TID furosemide, 40 mg, intravenous, BID 07-07 gabapentin, 200 mg, oral, Nightly lidocaine, 1 patch, Topical, Daily metoprolol succinate, 100 mg, oral, Daily pantoprazole, 40 mg, oral, q AM AC ambrisentan, 5 mg, oral, Daily treprostinil diolamine, 3 mg, oral, TID perflutren lipid microsphere (DEFINITY) 1.3 mL in sodium chloride 0.9% 8.7 mL injection, 10 mL, intravenous, Once in imaging piperacillin-tazobactam, 4.5 g, intravenous, q8h polyetheylene glycol, 17 g, oral, Nightly potassium chloride, 10 mEq, intravenous, q1h QUEtiapine, 25 mg, oral, Nightly sildenafil, 20 mg, oral, TID sodium chloride, 10 mL, intravenous, BID [2] [3] PRN medications: acetaminophen, ondansetron, oxyCODONE, [COMPLETED] Insert peripheral IV AND Maintain IV access AND [COMPLETED] Saline lock IV AND sodium chloride AND sodium chloride * Sarah Branch RN - 09/16/2025 11:38 AM EST 09/16/25 1138 Initial Transition Plan Initial Transition Plan Home Health Care Discharge Planning Living Arrangements Spouse/significant other Type of Residence Private residence Assistive Devices Wheelchair Support Systems Spouse/significant other Medication Coverage Has Med Coverage Under Insurance Plan Yes Medication Affordability No concerns related to payment for meds Anticipated Discharge Needs Discipline following for SNF placement Pharmacy Billing Adjudicator Informed Choice Informed Choice Given? Yes ICC met with patient at bedside, Patient lives with her where she states she is currently wheelchair bound. She states that she has 24 hour APPLICATION LEAD care through [facility] and VNA services through [facility]. She states she does not wear home o2 and is not a . She states her son is able to transfer her in and out of a car and will bring her home when ready for discharge. She refuses rehab as a discharge option. Referral placed out to [facility] * Sha Zapata RN - 09/16/2025 10:01 AM EST Pt ostomy bag emptied, approx 75mL of stool. * Mita Palacios RN - 09/15/2025 11:05 PM EST ED RN HANDOFF (All Tracey Below Must Be Completed) Reason/Diagnosis for Admission: Type of Admission: [] Medsurg, [x] Telemetry Already in a Hospital Bed: [] Yes / [x] No Room Considerations/Precautions (ex: fever, diarrhea, or any infectious concerns): [] Yes / [x] No Mill Tender: [x] Yes / [] No If YES, Cardiac Rhythm: [x] NSR, [] SB, [] ST, [] A-FIB, [] A-Flutter, [] Pacemaker, [] 1st Degree HB, [] 2nd Degree HB, [] 3rd Degree HB Reason for Mill Tender: O2 []Yes /[]No If YES, how many Liters: VS: Visit Vitals BP 115/56 (BP Location: Left arm, Patient Position: Sitting) Pulse 87 Temp 36.5 ??C (97.7 ??F) (Oral) Resp 18 Ht 1.6 m (63 ) Wt 47.6 kg (105 lb) SpO2 96% BMI 18.60 kg/m?? OB Status Postmenopausal Smoking Status Never BSA 1.47 m?? Current Mental Status: A/O x [x]4, []3, []2, []1 IV Access: [x] Yes / [] No Field IV present: [] Yes / [x] No Hx of Violence: [] Yes / [x] No / [] Unknown Current Ambulation Status: nonamb Fall Risk:[x] Yes / [] No Yellow Bracelet Applied [] Yes / [] No Yellow Socks Applied [] Yes / [] No Patient Belongings inventoried and BL completed: [x] Yes / [] No Patient belongings stored in the security closet: [] Yes (If Yes please supply Security bag #): [x] No Patient Medications stored in Pharmacy: [] Yes (If Yes please supply Medication Security bag #): [x] No ED Summary of Care: biba from home c/o CP that resolved on arrival, CT shows possible pna, abx given, IV lasix for fluid overload. Coccyx wound, wound care order placed. * Perla MckeonD - 09/15/2025 9:50 PM EST Initial Pharmacy Vancomycin Dosing Consultation Consult ordering provider: Kali RENE 80 y.o. female is being started on vancomycin PNA (CAP, HAP, VAP) (per protocol goal trough 15-18 mg/dL) for 7 days. Relevant data Height: 1.6 m (63 ) Weight: 47.6 kg (105 lb) Temp Readings from Last 3 Encounters: 09/15/25 36.7 ??C (98 ??F) (Oral) 08/17/25 37.2 ??C (99 ??F) 08/09/25 37.6 ??C (99.7 ??F) (Temporal) WBC Date Value Ref Range Status 09/15/2025 5.1 4.8 - 10.8 K/mcL Final 09/10/2025 7.2 4.8 - 10.8 K/mcL Final 08/16/2025 5.3 4.8 - 10.8 K/mcL Final Creatinine Date Value Ref Range Status 09/15/2025 0.93 0.50 - 1.10 mg/dL Final 09/10/2025 0.83 0.50 - 1.10 mg/dL Final 08/09/2025 0.90 0.50 - 1.10 mg/dL Final Estimated Creatinine Clearance: 36.3 mL/min (by C-G formula based on SCr of 0.93 mg/dL). mL/min Cockcroft-Gault No results found for this or any previous visit (from the past week). Patient is also receiving the following antibiotic(s): Piperacillin/Tazobactam Plan Patient has received a Loading vancomycin dose of 1250 mg on 09/15/25 at 20:46. Pharmacy will initiate a maintenance dose of 500 mg every 12 hours starting on 09/16/25 at 12:00. A trough has been ordered for 09/17/25 at 11:00 prior to 4th dose due on 09/17/25 at 12:00. Therapy is planned to end on 09/22/25 at this time. Will continue to monitor and recommend changes as necessary. Lindsay Berman PharmD 09/15/25 9:48 PM EST * Karin Henry RN - 09/15/2025 11:53 AM EST Patient to ED from home for non-radiating mid sternal chest pain x1 that has resolved since EMS transport. Oxygen saturation WNL for EMS. A&Ox4. Patient Hx of CHF and HTN. * Angel Yuen MD - 09/15/2025 11:35 AM EST HPI Chief Complaint Patient presents with Chest Pain Sternal chest pain x1 that is resolved HPI Patient is a 80-year-old female with history of chronic anemia requiring outpatient transfusions with a left port in place, Sjogren's, crest syndrome, hypertension, left lower quadrant colostomy sentin by her PCP for new onset chest pressure and pleuritic chest pain that began last night. PCP was concerned for a pulmonary embolism. Patient describes pain as intermittent in nature worse with movement and nonradiating. She recently had a left hip surgery at the end of July and since then she has limited ability to ambulate. Since the surgery she has had pain and swelling to the left lower extremity. Denies history of PE, DVT. Patient is not on any anticoagulation agents. Denies history of VA, or cardiac stenting. Anthony Coma Scale Score: 15 Patient History Medical History[1] Surgical History[2] Family History[3] Social History Tobacco Use Smoking status: Never Smokeless tobacco: Never Substance Use Topics Alcohol use: Never Drug use: Never Review of Systems Review of Systems Physical Exam ED Triage Vitals 09/15/25 1215 Temp Heart Rate Resp BP 36.6 ??C (97.9 ??F) 51 15 (!) 116/48 SpO2 Temp Source Heart Rate Source Patient Position 99 % Oral Monitor Sitting BP Location FiO2 (%) Right arm -- Physical Exam Vitals reviewed and normal Pulse ox interpreted by me: Normal on room air - General: Adult, awake & alert, resting comfortably, no acute distress - HEENT: grossly NC/AT, PERRLA, EOMI, OP clear without exudates or erythema, MMM - Neck: Moving normally. No obvious deformities. No tenderness - Pulm: Good inspiratory effort. CTAB. Normal work of breathing on Room Air - CV: Regular rate, regular rhythm. No murmurs/rubs appreciated. - Chest wall: No chest wall bruising or lesions. - Abd/GI: Soft, ND. NTTP, no rebound or guarding. - Back/Flanks: No skin findings. No tenderness. - MSK: Radial and DP pulses 2+ bilaterally. No lower extremity edema. - Neuro: Alert. Grossly oriented. Normal fluent speech. Decreased ability to move the left lower extremity which has been chronic since recent surgery otherwise moves all extremities well. Grossly noacute focal exam findings. - Derm: Warm and dry. - Psych: Calm, cooperative, appropriate Additional findings:_ Left lower quadrant colostomy in place no surrounding edema, bleeding or discharge, nontender to palpation surrounding area. Left thorax Mediport in place no surrounding edema, erythema, no tenderness to palpation surrounding the area. Patient has a stage III decubitus ulcer without bleeding or discharge, no overlying erythema or palpable fluctuance. ED Course & MDM Clinical Impressions as of 09/15/25 1940 SOB (shortness of breath) Leg swelling Pneumonia of left lung due to infectious organism, unspecified part of lung Pleural effusion Congestive heart failure, unspecified HF chronicity, unspecified heart failure type ([facility] V24, [facility] V28) Medical Decision Making EKG sinus rhythm 93 bpm, intervals within normal limits, right axis deviation, Q-wave in inferior leads, nonspecific ST changes noted throughout seen on prior without reciprocal changes, overall similar EKG when compared to prior. Labs reviewed notable for no leukocytosis, hemoglobin 9.3 near baseline, calcium 7.6, LFTs and T. bili stable, troponin 84, BNP 961 My preliminary interpretation of chest x-ray concerning for left-sided effusion versus opacification, no pneumothorax. I agree with radiology interpretation. CTA of the chest IMPRESSION: 1. There is no evidence of pulmonary artery embolism. 2. There is generalized increased fluid status with [id number]-[id number] bilateral pleural effusions, moderate ascites, a small pericardial effusion and edema of the soft tissues. 3. Opacities within the left lower lobe may be secondary to atelectasis or pneumonia. 4. Markedly dilated esophagus containing debris. Suspect achalasia. I suspect patient may have volume overload, Lasix 20 mg IV ordered Patient is not in septic shock Hemoglobin is near baseline does not require blood transfusion today. Troponin 84 I suspect secondary to demand ischemia in the setting of volume overload and pneumonia rather than ACS will continue to trend. Given low hemoglobin will defer aspirin at this time to inpatient team after ensuring hemoglobin is stable. I discussed patient with admitting physician Dr. Montoya,, patient was admitted to medicine. I discussed all results and workup with patient, all questions and concerns were answered, patient is agreeable with plan and admission. 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 Angel Yuen MD 09/15/25 194 documented in this encounter H&P Notes * ANJU Mo - 09/15/2025 8:01 PM EST Images from the original note were not included. [facility] HISTORY AND PHYSICAL Please contact author [ANJU Mo] via [employer]. Patient: Iwona Romero Admission Date/Time: 09/15/2025 11:53 AM : 1945 [80 y.o.] Patient's PCP: Jermaine Lazaro MD Attending Provider: Angel Yuen MD;Cristhian * Chief Complaint Chest Pain History of Present Illness Iwona is a pleasant 80-year-old female with a past medical history to include recent left hip replacement at [facility] with subsequent 1 month stay at [facility], CREST syndrome, Myeloiddysplasia, aplastic anemia, scleroderma, among others as listed below who presents to the hospital today at discretion of her visiting nurse for evaluation of chest pain. She underwent left hip replacement at [facility] at the end of July, subsequent with the [place] a assisted facility for a month and just returned home yesterday, 09/14/2025. She has been set up with visiting nursing services, who came to the house this morning and expressing concern regarding her general state of health. She ultimately had some discomfort in her chest with exertion at home and it was recommended thatshe seek evaluation in the emergency department. She has a history of peripheral edema and is on diuretics however often will not take this due to the inconvenience of having to urinate so frequent and the difficulty with outpatient follow-up given her recent hospitalizations and extensive medical history. She has no chest pain and no shortness of breath. She has no cough or fevers. She was hopeful for her discharge back home and feels that she can manage her symptoms at home well. She does need wound care in the community. On arrival here in the hospital, initial vital signs with a blood pressure of 116/48, pulse of 51, respirations of 15 with an SpO2 of 99% on room air and a temperature of 36.6 ??C. She had lab work obtained which showed no significant leukocytosis, does show a left shift. Anemia with an H&H of 9.3 and 30.1 is seen. Electrolytes are within normal limits. Renal function is preserved. BNP is up at 961 however there is no historical labs for comparison. High-sensitivity troponin x 1 is 84, repeat has not been ordered. Ultrasound was obtained and does not show evidence of lower leg DVT. CTA ofthe chest does not show evidence of PE. Does show generalized increased fluids to have small to moderate bilateral pleural effusions, moderate ascites and a small pericardial effusion as well as edema of the soft tissues. Opacities in the left lower lobe may be secondary to atelectasis or pneumonia. Markedly dilated esophagus containing debris is also seen and suspects achalasia. Please see detailed radiology report for further findings. Given the suggestion of pneumonia, case was discussed with internal medicine and admission was requested. Review of Symptoms Review of Systems Constitutional: Negative for chills and fever. Respiratory: Negative for cough and shortness of breath. Cardiovascular: Positive for chest pain and leg swelling. Negative for palpitations. Gastrointestinal: Negative for constipation, diarrhea, nausea and vomiting. Genitourinary: Negative for frequency and urgency. Musculoskeletal: Negative for gait problem. Skin: Positive for wound. Negative for rash. Neurological: Negative for syncope, weakness and headaches. Psychiatric/Behavioral: Negative for suicidal ideas. All other systems reviewed and are negative. Medical History Past Medical History Medical History[1] Past Surgical History Surgical History[2] Social History reports that she has never smoked. She has never used smokeless tobacco. She reports that she does not drink alcohol and does not use drugs. Family History family history is not on file. Allergies is allergic to epinephrine, bee venom protein (honey bee), cyclosporine, mushroom, and niacin. Home Medications Medications Ordered Prior to Encounter[3] Objective Vitals Visit Vitals BP 125/60 (BP Location: Left arm, Patient Position: Sitting) Pulse 88 Temp 36.7 ??C (98 ??F) (Oral) Resp 16 Temp (24hrs), Av.7 ??C (98 ??F), Min:36.6 ??C (97.9 ??F), Max:36.8 ??C (98.2 ??F) Body mass index is 18.6 kg/m??. No results found for: PTWT , PTHT Physical Examination Physical Exam Vitals reviewed. Constitutional: General: She is not in acute distress. Appearance: She is not toxic-appearing. HENT: Head: Normocephalic and atraumatic. Nose: Nose normal. Mouth/Throat: Mouth: Mucous membranes are dry. Pharynx: Oropharynx is clear. Eyes: Extraocular Movements: Extraocular movements intact. Pupils: Pupils are equal, round, and reactive to light. Cardiovascular: Rate and Rhythm: Normal rate and regular rhythm. Heart sounds: Murmur heard. No friction rub. No gallop. Pulmonary: Effort: Pulmonary effort is normal. No respiratory distress. Breath sounds: Normal breath sounds. Abdominal: General: There is no distension. Palpations: Abdomen is soft. Tenderness: There is no abdominal tenderness. There is no guarding or rebound. Comments: Colostomy bag seen in the left abdomen Musculoskeletal: General: Normal range of motion. Cervical back: Normal range of motion and neck supple. No rigidity. Right lower leg: Edema present. Left lower leg: Edema present. Comments: Bilateral lower leg edema noted with some erythema to both legs, some increased warmth appreciated to left greater than right Skin: General: Skin is warm and dry. Findings: No rash. Comments: Significant wound noted to the right aspect of the coccyx with central purulent wound bed, surrounding erythema and warmth noted to the wound Neurological: Mental Status: She is alert and oriented to person, place, and time. ECG: Was ECG Performed? Yes . Sinus Rhythm? Yes. Signs of acute ischemia? No Further Interpretation: EKG today showing normal sinus rhythm at 93 bpm, no significant ST segment changes, no obvious T wave inversions LAB RESULTS (most recent) HEMATOLOGY Lab Results Component Value Date WBC 5.1 09/15/2025 HGB 9.3 (L) 09/15/2025 HCT 30.1 (L) 09/15/2025 MCV 100.7 (H) 09/15/2025 PLT 164 09/15/2025 CHEMISTRY Lab Results Component Value Date GLUCOSE 95 09/15/2025 NA 138 09/15/2025 K 3.9 09/15/2025 CO2 24 09/15/2025 CL 107 09/15/2025 BUN 40 (H) 09/15/2025 CREATININE 0.93 09/15/2025 EGFR 62 09/15/2025 CALCIUM 7.6 (L) 09/15/2025 MG 2.1 09/10/2025 ANIONGAP 7 09/15/[address] Angio Chest wo and/or w Contrast Final Result 1. There is no evidence of pulmonary artery embolism. 2. There is generalized increased fluid status with [id number]-py-ekakrghy bilateral pleural effusions, moderate ascites, a small pericardial effusion and edema of the soft tissues. 3. Opacities within the left lower lobe may be secondary to atelectasis or pneumonia. 4. Markedly dilated esophagus containing debris. Suspect achalasia. This document has been electronically signed by: Lindsay Moura MD on 09/15/2025 17:55:20 Vascular US Duplex Lower Extremity Venous Bilateral Final Result XR Chest 2 Views Final Result Left basilar atelectasis and/or infiltrate with small effusion suspected. -------- FINAL REPORT -------- Dictated By: Keith Santo Dictated Date: 09/15/2025 14:24 ET Assigned Physician: Keith Santo Reviewed and Electronically Signed By: Keith Santo Signed Date: 09/15/2025 14:27 ET Workstation ID: [id number] Transcribed By: Self Edit Transcribed Date: 09/15/2025 14:24 ET Transthoracic echocardiogram (TTE) complete with PRN contrast, bubble, strain, and 3D order panel (Results Pending) Assessment & Plan Chest Pain Shortness of Breath Iwona is a pleasant 80 year old female presenting to the hospital for evaluation of episodic chestpain that occurred at home I am most suspicious for deconditioning but should consider other etiologies Less likely ACS Will repeat troponin for trending Pain free at the time of assessment EKG without evidence of ischemia CTA without PE ?Pneumonia on CTA but asymptomatic Will order procalcitonin Received a round of antibiotics in ED Will continue for the time being Chronically short of breath reviewing outpatient records No evidence of tachypnea or hypoxia Suspect volume status is contributing as well Diuresis is ordered TTE is ordered Trend morning labs Coccyx Wound Coming in with a pre-existing coccyx wound Visualized in the ED Will place a consult for wound nurse Jackie nichols to decompress Hypertension Continue metoprolol Continue Sildenafil Case discussed with my attending Dr Montoya. Admission Checklist [x] Code status: Full Code - Default [x] VTE Prophylaxis: SequentialsTorri [x] Diet order on admission: Dietary Orders (From admission, onward) Start Ordered 09/15/251921 Adult diet [facility]; Cardiac; Cardiac Diet effective now Question Answer Comment Location [facility] Diet Type (req) Cardiac Diet Type (cardiac) Cardiac 09/15/251924 [x] Medication reconciliation Health Care proxy with phone number: Spouse, Syd, [1] Past Medical History: Diagnosis Date Anemia 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 (calcinosis, Raynaud's phenomenon, esophageal dysfunction, sclerodactyly, telangiectasia) (CMS/HCC V24, CMS/HCC V28) GERD (gastroesophageal reflux disease) Mitochondrial myopathies Pulmonary fibrosis (CMS/HCC V24, CMS/HCC V28) Pulmonary HTN (CMS/HCC V24, CMS/HCC V28) Scleroderma (CMS/HCC V24, CMS/HCC V28) Sjogren syndrome (CMS/HCC V24) [2] Past Surgical History: Procedure Laterality Date COLONOSCOPY COLOSTOMY ESOPHAGOGASTRODUODENOSCOPY FOOT SURGERY Bilateral BONIONS HIP SURGERY Left 06/11/[address] HYSTERECTOMY SHOULDER SURGERY Right [3] No current facility-administered medications on file prior to encounter. Current Outpatient Medications on File Prior to Encounter Medication Sig Dispense Refill alpha lipoic acid 300 mg capsule Take 300 mg by mouth every evening. alpha lipoic acid 600 mg capsule Take 600 mg by mouth. ambrisentan (LETAIRIS) 5 mg tablet Letairis 5 mg tablet B2-magnesium cit,oxid-feverfew 100-90-25 mg capsule Take by mouth. brinzolamide (AZOPT) 1 % ophthalmic suspension Azopt 1 % eye drops,suspension carboxymethylcellulose (REFRESH PLUS) 0.5 % ophthalmic solution 1 drop daily as needed. cod liver oiL oil Take by mouth. COQ10, UBIQUINOL, ORAL Take 300 mg by mouth 1 (one) time each day. creatine 100 % powder powder by [employer].(Non-Drug; Combo Route) route. /4 tsp 2 times per day ergocalciferol (VITAMIN D-2) 1,250 mcg (50,000 unit) capsule Take 10,000 mg by mouth 3 (three) times a week. gabapentin (NEURONTIN) 100 mg capsule Take 2 capsules (200 mg total) by mouth at bedtime. lidocaine-prilocaine (EMLA) 2.5-2.5 % cream metoprolol succinate (TOPROL-XL) 50 mg 24 hr tablet Take 2 tablets (100 mg total) by mouth 1 (one) time each day. Miebo, PF, 100 % drops naproxen sodium (ANAPROX) 220 mg tablet Take 1 tablet (220 mg total) by mouth as needed for pain. kxgct-3-ooj-eek-nbp-rakn oil ([place]-3 2100) 1,050 mg(300 mg -675 mg-75 mg) capsule Take 1 tablet bymouth. pantoprazole (PROTONIX) 40 mg EC tablet TAKE 1 TABLET DAILY BEFORE BREAKFAST. DO NOT CRUSH, CHEW ORSPLIT 90 tablet 3 QUEtiapine (SEROquel) 25 mg tablet Take 1 split tablet (12.5 mg total) by mouth every night at bedtime. saliva substitute combo no.9 (BIOTENE DRY MOUTH ORAL RINSE MM) Biotene Dry Mouth Oral Rinse sildenafil (REVATIO) 20 mg tablet thiamine 100 mg tablet Vitamin B-1 treprostinil diolamine (ORENITRAM) 1 mg tablet extended release 3 mg 3 (three) times a day. vit A/vit C/vit E/zinc/copper (PRESERVISION AREDS ORAL) Take by mouth. Vitamin C tablet Take 1 tablet (100 mg total) by mouth. Cosigned by Cristhian Montoya MD at 09/18/2025 9:04 AM EST Associated attestation - Cristhian Montoya MD - 09/18/2025 9:04 AM EST This is a split/shared visit with ANJU Mo. I personally performed the medical decision making (MDM) for the care of this patient on 09/15/25 as documented below Patient was discussed with Advanced Practice Provider. Patient 80-year-old chronically ill and frail looking woman who is currently nonambulatory and has been in rehab for the past more than 1 month and just came home couple days ago, she has a past medical history significant for CREST Syndrome/ scleroderma, history of aplastic anemia, Sjogren syndrome, GERD, mitochondrial myopathies, pulmonary artery hypertension, pulmonary fibrosis, etc. was brought to the ED upon recommendation of her PCP who was called by visiting nurse when she complained of having some chest pain, especially with deep inspiration and with movement. She denies increasing shortness of breath and she said that chest pain is better now. She has no cough, sputum production, fever or chills. At the ED she had pretty unremarkable vital signs. Her first troponin was 84, BNP was 961. A CT angio of the chest showed no evidence of pulmonary embolism but it showed bilateral small to moderate pleural effusions, moderate ascites plu small amount of pericardial effusion, as well as some edema in the soft tissues. It's also s een an opacity in the left lower lobe that radiologist commented could be related to atelectasis orpneumonia and a markedly dilated esophagus containing debris's suspected related to achalasia. Withthese results ED staff wanted the patient to be admitted to the hospital with working diagnosis of pneumonia and chest pain. Therefore, the patient is now being admitted to the hospital with working diagnosis of atypical chest pain, very unlikely to be ACS; anasarca with evidence of fluid overload possibly related to pulmonary artery hypertension, too.? Aspiration pneumonitis given CT findings ofopacity of the left lung plus esophageal abnormalities, which likely related to her underlying CREST syndrome. Will obtain an echo, diurese the patient with IV Lasix, may continue for the time being with antibiotics, will obtain CRP and procalcitonin, too. I personally saw and examined the patient at bedside. I independently obtained further history and reviewed significant updates, labs and imaging. I also contacted pertinent consultants in order to facilitate patient's medical care. Otherwise, I agree with the documentation and plan as outlined in the note below. Cristhian Montoya MD 09/18/25 8:43 AM EST documented in this encounter Procedure Notes * Briana Mxi MD - 09/23/2025 12:45 PM EST Procedure Note: Date: 09/23/25 Name: Iwona Romero : 1945 Diagnosis 1. Pneumonia of left lung due to infectious organism, unspecified part of lung Tissue exam Tissue exam 2. SOB (shortness of breath) CT Angio Chest wo and/or w Contrast CT Angio Chest wo and/or w Contrast Tissue exam Tissue exam 3. Leg swelling Vascular US Duplex Lower Extremity Venous Bilateral Vascular US Duplex Lower Extremity Venous Bilateral Tissue exam Tissue exam 4. Pleural effusion Tissue exam Tissue exam 5. Congestive heart failure, unspecified HF chronicity, unspecified heart failure type (CMS/HCC V24, CMS/HCC V28) Transthoracic echocardiogram (TTE) complete with PRN contrast, bubble, strain, and 3Dorder panel Transthoracic echocardiogram (TTE) complete with PRN contrast, bubble, strain, and 3D order panel Tissue exam Tissue exam 6. Fluid overload Tissue exam Tissue exam 7. Achalasia EGD Anesthesia - MAC; SP ENDOSCOPY EGD Anesthesia - MAC; [facility] ENDOSCOPY Tissue exam Tissue exam 8. Bacteremia CANCELED: Transesophageal echocardiogram (SERGIO) with possible cardioversion with PRN contrast CANCELED: Transesophageal echocardiogram (SERGIO) with possible cardioversion with PRN contrast 9. Splenic infarct Transesophageal echocardiogram (SERGIO) with possible cardioversion with PRN contrast Transesophageal echocardiogram (SERGIO) with possible cardioversion with PRN contrast 10. Aortic valve vegetation Transesophageal echocardiogram (SERGIO) with possible cardioversion with PRN contrast Transesophageal echocardiogram (SERGIO) with possible cardioversion with PRN contrast 11. 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 Transesophageal echocardiogram (SERGIO) with possible cardioversion with PRN contrast Transesophageal echocardiogram (SERGIO) with possible cardioversion with PRN contrast Procedures Transesophageal echocardiogram Indications: Iwona Romero is a 80 y.o. female who presents for transesophageal echocardiogram to further assess possible vegetation on the aortic valve seen on transthoracic echo in the setting of splenic infarcts in the past and active pneumonia Metabolic Specialist Performing Procedure: Briana Mix MD Staff Honorio Mas RN Anesthesia: MAC ASA: III Procedure Description: After appropriate informed consent was obtained for the procedure, the patient was placed in the left lateral decubitus position. Timeout procedure was performed. Bite-block was placed in the patient's mouth. Patient was sedated per anesthesiologist. SERGIO probe was passed into the esophagus without issue. See full echocardiogram report for further details. Briefly, the aortic valve did not show any evidence of endocarditis. 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 The valve opens normally without significant aortic insufficiency. See full echocardiogram report for further details about other findings. SERGIO probe was then removed from the esophagus without issue. Patient tolerated the procedure well. Complications: None; patient tolerated the procedure well. Disposition: PACU - hemodynamically stable. Condition: stable * Christopher Stovall RN - 09/23/2025 12:07 PM EST Repositioned patient, pillow under left hip. Patient states I'm very comfortable now. * Marely Hermosillo RN - 09/20/2025 8:40 AM EST Pt awake and pt informed of the findings, pt also requested something to wet her mouth, so wet clean gauze used to do mouth care and pt very appreciative.. Iv line flushed with saline and clamped. documented in this encounter Consult Notes * Briana Mix MD - 09/22/2025 5:31 PM ESTAssociated Order(s): IP CONSULT TO CARDIOLOGY Images from the original note were not included. [facility] Cardiology- Cardiology Consultation Note PATIENT NAME: Iwona Romreo ([id number]) DATE OF CONSULT: 09/22/25 ASSESSMENT & PLAN 80 y.o. female with an unfortunate and extensive past medical history of limited scleroderma/crest syndrome with pulmonary hypertension though recently well- controlled on current treprostinil therapy, with extensive achalasia and aperistalsis leading to chronic aspiration with possible pneumonia, MDS reliant on intermittent blood transfusions, mitochondrial myopathy who presented with a mild HFpEF exacerbation associated with this possible aspiration pneumonia. She also presented with persistent chest pain but has ruled out with serial cardiac enzymes for acute coronary syndrome and had normal regional wall motion on echocardiogram. She does appear to have hypertrophic obstructive physiology-it is unclear if this is genetic or acquired physiology. Unfortunately, she was found to have a possible aortic valve vegetation on TTE which I am asked to comment on. She was incidentally also noted to have chronic splenic infarcts and acute ones could not be ruled out. 1. Splenic infarcts and possible aortic valve vegetation-I have independently reviewed echo images and feel the possible vegetation is more likely degenerative or related to calcification or a benignLambl's excrescence but, in light of the splenic infarcts and pneumonia, I cannot rule out a focus of endocarditis on TTE alone and therefore we will plan to proceed with SERGIO to rule out endocarditis-I have conferred with gastroenterology-there are no contraindications from their standpoint for doing a SERGIO, patient is clinically appropriate for SERGIO 2. Hypertrophic obstructive physiology-Will plan for IV fluids during SERGIO, would avoid vasodilatingagents to the extent that it is possible (i.e. blood pressure lowering agents) and avoid diuretics if at all possible given that this will worsen hypertrophic obstructive physiology; given her numerous comorbidities, I am not certain that doing an extensive hypertrophic cardiomyopathy workup is necessary and nor will it really exchange administrator-given that we are diagnosing this physiology at age 80, it is either acquired or a low risk genetic variant. Agree with low-dose of metoprolol 50 mg daily. Would increase dose if blood pressure becomes an issue. 3. Hypertension-metoprolol monotherapy for now 4. Mitral stenosis-I suspect high gradients on echo are more related to hyperdynamic state as opposed to true stenosis, I will be able to planimeter the valve on SERGIO to get a more accurate assessment SUBJECTIVE REASON FOR CONSULTATION: Possible endocarditis HISTORY OF PRESENT ILLNESS: 80 y.o. female who presents for acute inpatient hospitalization. I am asked to do an inpatient cardiac consultation. She has a past medical history significant for limited scleroderma (CREST syndrome) with associated aspiration chronically due to aperistalsis and achalasia, pulmonary hypertension-previously followed by Dr. 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 She spent about a month in rehab and was just discharged home a day before presentation to the hospital. She presented with persistent, central chest pain. She says she has had this on and off for a while but it was particularly bad. She gives a somewhat conflicting account of the symptoms as she continues speaking. Initially she says it occurs with any movement but it is gone. She also told me that recently when she got up to sit in the chair she did not have the pain. She then backtracked and said that the pain never went away but it has gotten much better and is being overtaken by other joint pains- particularly in her back and at thesite of the sacrococcygeal ulceration. Regardless, when she told her visiting nurse about the symptoms, she wanted the patient to call her PCP. Her PCP graduate intern recommended she go back to the ER. In the ER on 09/15/2025, she had a CT angiography that showed no evidence of pulmonary embolism butshowed small to moderate bilateral pleural effusions, moderate ascites, and a small amount of pericardial effusion. There was an opacity in the left lower lobe which could represent atelectasis versus pneumonia, a markedly dilated esophagus with debris suspected to be related to achalasia. Her cardiac enzymes were basically unremarkable-initially in the 80s going down to 36. A transthoracic echocardiogram showed severe concentric LV hypertrophy with ejection fraction greater than 70%, normal peak global longitudinal strain, evidence of a mid cavitary gradient of 52 mmHg at rest that did not appreciably increase with Valsalva. I independently reviewed her echo images and it looks as though she has potential hypertrophic cardiomyopathy variant versus adverse remodeling from hypertensive heart disease. She has moderate to severe, calcific mitral stenosis. Aortic valve was thickened and calcified. REVIEW OF SYSTEMS (ROS): Negative except as mentioned in the HPI. PAST MEDICAL HISTORY She has a past medical history of Anemia, AVM (arteriovenous malformation), CREST (calcinosis, Raynaud's phenomenon, esophageal dysfunction, sclerodactyly, telangiectasia) (CMS/HCC V24, CMS/HCC V28),GERD (gastroesophageal reflux disease), Mitochondrial myopathies, Pulmonary fibrosis (CMS/HCC V24, CMS/HCC V28), Pulmonary HTN (CMS/HCC V24, CMS/HCC V28), Scleroderma (CMS/HCC V24, CMS/HCC V28), and Sjogren syndrome (CMS/HCC V24). PAST SURGICAL HISTORY She has a past surgical history that includes Hip surgery (Left, 06/11/2024); Colostomy; Foot surgery (Bilateral); Hysterectomy; Esophagogastroduodenoscopy; Colonoscopy; and Shoulder surgery (Right). SOCIAL HISTORY Tob: reports that she has never smoked. She has never used smokeless tobacco. ETOH: reports no history of alcohol use. Drug: reports no history of drug use. FAMILY HISTORY She family history is not on file. MEDICATIONS:Current Medications[1] ALLERGIES: She is allergic to epinephrine, bee venom protein (honey bee), cyclosporine, mushroom, and niacin. OBJECTIVE Vitals: 09/22/25 1546 BP: 121/68 Pulse: Resp: 18 Temp: 36.4 ??C (97.6 ??F) SpO2: 98% Body mass index is 21.7 kg/m??. PHYSICAL EXAMINATION: General/constitutional: Patient appears very fatigued, frail but pleasant, cooperative, lying completely flat without respiratory issues Eyes: EOMI, normal convergence HENT: Atraumatic and normocephalic, moist mucous membranes, telangiectasias seen on the bilateral cheeks Neck: Supple, no jugular venous distention Cardiovascular: Regular rate and rhythm, 2 out of 6 systolic ejection murmur, no rubs or gallops Lungs: Clear to auscultation bilaterally Extremities: Purplish discoloration of the digits of the hands, no lower extremity edema Neuro: Alert and oriented x3, grossly nonfocal LABS: Lab Results Component Value Date GLUCOSE 117 (H) 09/22/2025 CALCIUM 7.9 (L) 09/22/2025 NA 140 09/22/2025 K 4.3 09/22/2025 CO2 22 09/22/2025 CL 110 09/22/2025 BUN 43 (H) 09/22/2025 CREATININE 1.06 09/22/2025 Lab Results Component Value Date WBC 8.1 09/22/2025 HGB 8.9 (L) 09/22/2025 HCT 28.5 (L) 09/22/2025 MCV 100.4 (H) 09/22/2025 PLT 216 09/22/2025 Lab Results Component Value Date INR 1.1 09/15/2025 INR 0.9 08/18/2025 Lab Results Component Value Date HSTROPI 36 (H) 09/16/2025 CARDIOVASCULAR TESTING 09/15/25 TRANSTHORACIC ECHOCARDIOGRAM (TTE) COMPLETE (CONTRAST/BUBBLE/3D PRN) 09/18/2025 09/17/2025 Interpretation Summary Technically difficult study. Left Ventricle: There is severe concentric hypertrophy. Systolic function is hyperdynamic with an ejection fraction over 70%. LV global longitudal strain is normal. Global longitudinal strain is -22.3%. There are no regional LV wall motion abnormalities. Left ventricle: There is moderate mid-cavity gradient of 52 mmHg at rest with no significant changewith Valsalva. Aortic Valve: There is moderate stenosis. Aortic valve: In some of the parasternal views, there is evidence of an echodensity associated to the LVOT side of the aortic valve. This could represent a calcification. However, a vegetation cannotbe completely ruled out with the available images. Consider further evaluation with blood cultures a nd/or a SERGIO if clinically indicated. Mitral Valve: There is severe stenosis, with a mean gradient of 11 mmHg. Pericardium: There is a small circumferential pericardial effusion. There is no echocardiographic evidence of tamponade. There is a left pleural effusion. Signed by: Ravinder Huffman MD on 09/18/2025 9:29 AM Telemetry-sinus rhythm, no acute events [facility] [address] [place] [address] [address], [address] [place] [address] [1] Current Facility-Administered Medications: acetaminophen (TYLENOL) tablet 650 mg, 650 mg, oral, q6h PRN, ANJU Mo, 650 mg at 09/18/25 0947 apixaban (ELIQUIS) tablet 2.5 mg, 2.5 mg, oral, BID, ANJU Mo, 2.5 mg at 09/22/25 0937 ascorbic acid (VITAMIN C) tablet 250 mg, 250 mg, oral, Daily, Mikael Balderas MD, 250 mg at 09/22/25 0933 cefTRIAXone (ROCEPHIN) 2 g in sterile water 20 mL IV syringe, 2 g, intravenous, q24h, Lois Pacheco MD, 2 g at 09/22/25 1607 collagenase (SANTYL) 250 unit/gram ointment, , Topical, Daily, Mikael Balderas MD, Given at 09/21/25 0947 dorzolamide (TRUSOPT) 2 % ophthalmic solution 1 drop, 1 drop, Both Eyes, TID, ANJU Mo, 1 drop at 09/22/25 1335 gabapentin (NEURONTIN) capsule 200 mg, 200 mg, oral, Nightly, ANJU Mo, 200 mg at 09/21/252107 HYDROmorphone (DILAUDID) injection 0.5 mg, 0.5 mg, intravenous, q3h PRN, Mikael Balderas MD, 0.5 mg at111/23/24 1608 lidocaine 4 % patch 1 patch, 1 patch, Topical, Daily, ANJU Mo, 1 patch at 09/20/25 1105 metoprolol succinate (TOPROL-XL) 24 Hour tablet 50 mg, 50 mg, oral, Daily, ANJU Garcia, 50 mgat 09/22/25 0934 micafungin (MYCAMINE) 100 mg in sodium chloride 0.9 % 100 mL IVPB, 100 mg, intravenous, q24h, Lois Pacheco MD, Last Rate: 100 mL/hr at 09/22/25 1608, 100 mg at 09/22/25 1608 ondansetron (PF) (ZOFRAN) injection 4 mg, 4 mg, intravenous, q6h PRN, ANJU Mo oxyCODONE (ROXICODONE) immediate release tablet 5 mg, 5 mg, oral, q6h PRN, Mikael Balderas MD, 5 mg at111/23/24 133 pantoprazole (PROTONIX) injection 40 mg, 40 mg, intravenous, q12h SILVANO, Mikael Balderas MD, 40 mg at 09/22/25 0936 PATIENT OWN'S MED: Ambrisentan (LETAIRIS) tablet 5 mg, 5 mg, oral, Daily, ANJU Mo, 5 mg at 09/21/252108 PATIENT'S OWN MED: Treprostinil diolamine (ORENITRAM) ER tablet 1 mg, 3 mg, oral, TID, ANJU Mo, 3 mg at 09/21/25938 polyethylene glycol (MIRALAX) packet 17 g, 17 g, oral, Nightly, ANJU Mo, 17 g at 09/20/252135 QUEtiapine (SEROquel) tablet 25 mg, 25 mg, oral, Nightly, ANJU Mo, 25 mg at 09/21/25 2108 sildenafil (REVATIO) tablet 20 mg, 20 mg, oral, TID, ANJU Mo, 20 mg at 09/22/25 1333 [COMPLETED] Insert peripheral IV, , , Once AND Maintain IV access, , , Until discontinued AND [COMPLETED] Saline lock IV, , , Once AND sodium chloride 0.9 % flush 10 mL, 10 mL, intravenous, BID, 10 mL at 09/22/25 0936 AND sodium chloride 0.9 % flush 10 mL, 10 mL, intravenous, PRN, ANJU Mo, 10 mL at 09/22/25 1054 sodium chloride 0.9 % flush 10 mL, 10 mL, intravenous, Once, Bob Brown MD vancomycin (VANCOCIN) 1,000 mg in sodium chloride 0.9 % 250 mL IVPB, 1,000 mg, intravenous, q24h, Lois Pacheco MD, Stopped at 09/21/25 1929 zinc sulfate (ZINCATE) capsule 220 mg, 220 mg, oral, Daily, Mikael Balderas MD, 220 mg at 09/22/25 0937 * Lois Pacheco MD - 09/21/2025 8:04 PM ESTAssociated Order(s): IP CONSULT TO INFECTIOUS DISEASES Infectious Diseases Consult 09/21/25 No ref. provider found Jermaine Lazaro MD Reason for Consultation: Esophageal Candidasis Source of history: chart review and the patient Consult placed by: Bob Brown MD History Of Present Illness (includes Chief Complaint): Iwona Romero is a 80 y.o. female who has a past medical history of Anemia, AVM (arteriovenous malformation), CREST (calcinosis, Raynaud's phenomenon, esophageal dysfunction, sclerodactyly, telangiectasia) (CMS/HCC V24, CMS/HCC V28), GERD (gastroesophageal reflux disease), Mitochondrial myopathies,Pulmonary fibrosis (CMS/HCC V24, CMS/HCC V28), Pulmonary HTN (CMS/HCC V24, CMS/HCC V28), Scleroderma (CMS/HCC V24, CMS/HCC V28), and Sjogren syndrome (CMS/[facility] V24).. The patient was admitted to the hospital on 09/15/2025 for chest pain. She had a CT scan which revealed achalasia and concern for pneumonia. She was started on CTX and Doxy. She underwent an EGD which reveals Yumiko Esophagitis. Shehas known CREST syndrome. She was started on Fluconazole however she is on seroquel and her Qtc [id number] and hence ID was consulted . However, the pt also had a TTE on 09/17 which showed possible vegetation on aortic valve. She has not had blood C/S The ID service has been consulted for management during this patient's hospital stay. Past Medical History: Medical History[1] Surgical History: Surgical History[2] Family History: Family History[3] Social History: Social History[4] Allergies: Epinephrine, Bee venom protein (honey bee), Cyclosporine, Mushroom, and Niacin Home Medications: Prior to Admission medications Medication Sig Start Date End Date Taking? Authorizing Provider ambrisentan (LETAIRIS) 5 mg tablet Letairis 5 mg tablet 09/01/21 Yes Historical Provider, apixaban (ELIQUIS) 2.5 mg tablet Take 1 tablet (2.5 mg total) by mouth 2 (two) times a day. 09/17/25 Yes Historical Provider, brinzolamide (AZOPT) 1 % ophthalmic suspension Azopt 1 % eye drops,suspension 02/20/21 Yes HistoricalProvider, cod liver oiL oil Take by mouth. Yes Historical Provider, ergocalciferol (VITAMIN D-2) 1,250 mcg (50,000 unit) capsule Take 10,000 mg by mouth 3 (three) times a week. Yes Historical Provider, furosemide (LASIX) 20 mg tablet Take 1 tablet (20 mg total) by mouth 1 (one) time each day. Yes Historical Provider, gabapentin (NEURONTIN) 100 mg capsule Take 2 capsules (200 mg total) by mouth at bedtime. 04/16/24 Yes Historical Provider, metoprolol succinate (TOPROL-XL) 50 mg 24 hr tablet Take 2 tablets (100 mg total) by mouth 1 (one) time each day. 11/04/24 Yes Historical Provider, pantoprazole (PROTONIX) 40 mg EC tablet TAKE 1 TABLET DAILY BEFORE BREAKFAST. DO NOT CRUSH, CHEW ORSPLIT 08/09/25 Yes Anastacio Jara MD QUEtiapine (SEROquel) 25 mg tablet Take 1 split tablet (12.5 mg total) by mouth every night at bedtime. Yes Historical Provider, sildenafil (REVATIO) 20 mg tablet 09/26/23 Yes Historical Provider, treprostinil diolamine (ORENITRAM) 1 mg tablet extended release 3 mg 3 (three) times a day. Yes Historical Provider, alpha lipoic acid 300 mg capsule Take 300 mg by mouth every evening. Historical Provider, alpha lipoic acid 600 mg capsule Take 600 mg by mouth. Historical Provider, B2-magnesium cit,oxid-feverfew 100-90-25 mg capsule Take by mouth. Historical Provider, carboxymethylcellulose (REFRESH PLUS) 0.5 % ophthalmic solution 1 drop daily as needed. Historical Provider, COQ10, UBIQUINOL, ORAL Take 300 mg by mouth 1 (one) time each day. Historical Provider, creatine 100 % powder powder by Apprenda.(Non-Drug; Combo Route) route. 10/24 tsp 2 times per day Historical Provider, lidocaine-prilocaine (EMLA) 2.5-2.5 % cream 08/19/23 Historical Provider, Miebo, PF, 100 % drops 04/08/25 Historical Provider, naproxen sodium (ANAPROX) 220 mg tablet Take 1 tablet (220 mg total) by mouth as needed for pain. Historical Provider, hgnck-8-thz-ntl-sxs-egtv oil ([place]-3 2100) 1,050 mg(300 mg -675 mg-75 mg) capsule Take 1 tablet bywyuth. Historical Provider, saliva substitute combo no.9 (BIOTENE DRY MOUTH ORAL RINSE MM) Biotene Dry Mouth Oral Rinse Historical Provider, thiamine 100 mg tablet Vitamin B-1 Historical Provider, vit A/vit C/vit E/zinc/copper (PRESERVISION AREDS ORAL) Take by mouth. Historical Provider, Vitamin C tablet Take 1 tablet (100 mg total) by mouth. Historical Provider, Current Medications: Current Medications[5] MEDSPRN[6] ROS: Review of Systems Constitutional: Negative. HENT: Negative. Respiratory: Negative. Cardiovascular: Negative. Gastrointestinal: Negative. Genitourinary: Negative. Musculoskeletal: Positive for arthralgias. Skin: Positive for wound. Vital signs for last 24 hours: Temp: 36.7 ??C (98 ??F) (09/21 1918) Heart Rate: 92 (09/21 1918) Resp: 18 (09/21 1918) BP: 131/57 (09/21 1918) Intake/Output this shift: No intake/output data recorded. Physicial Exam Physical Exam Vitals reviewed. Constitutional: Appearance: Normal appearance. HENT: Head: Normocephalic and atraumatic. Eyes: General: No scleral icterus. Cardiovascular: Rate and Rhythm: Normal rate and regular rhythm. Heart sounds: No murmur heard. No friction rub. No gallop. Pulmonary: Effort: No respiratory distress. Breath sounds: No stridor. No wheezing or rhonchi. Abdominal: General: There is no distension. Tenderness: There is no abdominal tenderness. There is no guarding or rebound. Musculoskeletal: General: No deformity or signs of injury. Skin: Coloration: Skin is not jaundiced or pale. Neurological: Mental Status: She is alert. Results: Lab No results displayed because visit has over 200 results. Lab Results Component Value Date BLOODCX Culture in progress 09/21/2025 BLOODCX Culture in progress 09/21/2025 MRSA Not Detected 09/15/2025 Recent Results (from the past week) MRSA molecular study Collection Time: 09/15/25 8:10 PM Specimen: Nares; Swab Result Value Ref Range MRSA Screen PCR Not Detected Not Detected Blood Culture, Peripheral Draw #1 Collection Time: 09/21/25 2:35 PM Specimen: Blood, Venous Result Value Ref Range Culture, Blood Culture in progress Blood Culture, Peripheral Draw #2 Collection Time: 09/21/25 2:50 PM Specimen: Blood, Venous Result Value Ref Range Culture, Blood Culture in progress Radiology: EGD Anesthesia - MAC; [facility] ENDOSCOPY Narrative: [facility] GI Patient Name: Iwona Romero Procedure Date: 09/20/2025 7:54 AM Date of : 1945 Age: 80 Gender: Female Note Status: Finalized Attending MD: Caitlin Birmingham MD, Procedure Date No Time: 09/20/2025 Procedure: Upper GI endoscopy Indications: Abnormal CT of the GI tract, Patient with dilated debris filled esophagus on CT scan. Patient has a histry of CREST syndrome and recurrent aspiration pneumonia. Providers: Caitlin Birmingham MD Referring MD: Caitlin Birmingham MD Medicines: Propofol per Anesthesia Complications: No immediate complications. Estimated Blood Loss: Estimated blood loss: none. Procedure: Pre-Anesthesia Assessment: - ASA Grade Assessment: IV - A patient with severe systemic disease that is a constant threat to life. After obtaining informed consent, the endoscope was passed under direct vision. Throughout the procedure, the patient's blood pressure, pulse, and oxygen saturations were monitored continuously.The Endoscope was introduced through the mouth, and advanced to the second part of duodenum. The upper GI endoscopy was accomplished without difficulty. The patient tolerated the procedure well. Findings: The lumen of the esophagus was moderately dilated. Abnormal motility was noted in the esophagus. The cricopharyngeus was normal. There is a decrease in motility of the esophageal body. The distal esophagus/lower esophageal sphincter is open. Diffuse mucosal changes characterized by adherent debris were found in the mid esophagus and in the distal esophagus. Biopsies were taken with a cold forceps for histology. A small hiatal hernia was present. No gross lesions were noted in the entire examined stomach. The examined duodenum was normal. Procedure Code(s): --- Professional --- 81884, Esophagogastroduodenoscopy, flexible, transoral; with biopsy, single or multiple Diagnosis Code(s): --- Professional --- K22.4, Dyskinesia of esophagus K44.9, Diaphragmatic hernia without obstruction or gangrene R93.3, Abnormal findings on diagnostic imaging of other parts of digestive tract K22.89, Other specified disease of esophagus CPT copyright 2020 [employer]. All rights reserved. The codes documented in this report are preliminary and upon public speaking coach review may be revised to meet current compliance requirements. Caitlin Birmingham MD 09/20/2025 8:14:33 AM This report has been signed electronically.Caitlin Birmingham MD Number of Addenda: 0 Note Initiated On: 09/20/2025 7:54 AM Scope In: Scope Out: Endoscopy Department at [facility] - [address] [place] [address] Impression: - Dilation in the entire esophagus. - Abnormal esophageal motility, consistent with aperistalsis. - Adherent debris mucosa in the esophagus. - Small hiatal hernia. - No gross lesions in the entire stomach. - Normal examined duodenum. - No specimens collected. Recommendation: - Await pathology results. - Findings consistent with poor/absent motility of the esophagus. Would recommend always staying upright as much as posible- including sleeping. Small meals with frequent liquids. Assessment/Plan Iwona Romero is a 80 y.o. female who has a past medical history of Anemia, AVM (arteriovenous malformation), CREST (calcinosis, Raynaud's phenomenon, esophageal dysfunction, sclerodactyly, telangiectasia) (CMS/HCC V24, CMS/HCC V28), GERD (gastroesophageal reflux disease), Mitochondrial myopathies,Pulmonary fibrosis (CMS/HCC V24, CMS/HCC V28), Pulmonary HTN (CMS/HCC V24, CMS/HCC V28), Scleroderma (CMS/HCC V24, CMS/HCC V28), and Sjogren syndrome (CMS/HCC V24).. The patient was admitted to the hospital on 09/15/2025 for chest pain. She had a CT scan which revealed achalasia and concern for pneumonia. She was started on CTX and Doxy. She underwent an EGD which reveals Yumiko Esophagitis. Shehas known CREST syndrome. She was started on Fluconazole however she is on seroquel and her Qtc [id number] and hence ID was consulted . However, the pt also had a TTE on 09/17 which showed possible vegetation on aortic valve. She has not had blood C/S The ID service has been consulted for management during this patient's hospital stay. Esophageal Candidiasis Possible AV endocarditis Vanc dosing TERE I am switching the pt to IV Micafungin for the Candidiasis due to borderline Qtc and interaction with Seroquel Will need for 14 days Recommend testing for HIV Also, TTE showed possible AV vegetation vs calcification, no cultures taken, needs to be investigated Currently only meeting 1 major clinical criteria in Purcell's, need to investigate further Has TERE, will adjust Abx as needed I ordered C/S, started pt on Vanc and CTX Recommendations: I am starting the pt on Vanc goal 15-20 plus CTX 2 g Q24 I have ordered blood C/S I am starting the pt on IV Micafungin for 2 weeks Please get a CT abd/pelvis plus VT head to evaluate for septic emboli I personally spent 62 minutes in this encounter. This included performing a detailed chart review, reviewing and independently interpreting labs and other tests ordered by other providers, performinga history and physical, counseling the patient/family, discussing the case with primary team , performing complex medical decision making, coordinating his/her/their plan of care and placing orders, monitoring a drug (Vanc) for toxicity in collaboration with pharmacy. the pt has a highly complex infection for which I am the primary specialist involved in managing antimicrobials Isolation: none Communication: Thank you for the consult. Please do not hesitate to contact me via [employer] with issues or questions Lois Pacheco MD [1] Past Medical History: Diagnosis Date Anemia 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 [4] Social History Tobacco Use Smoking status: Never Smokeless tobacco: Never Substance Use Topics Alcohol use: Never Drug use: Never [5] Current Facility-Administered Medications: acetaminophen (TYLENOL) tablet 650 mg, 650 mg, oral, q6h PRN, ANJU Mo, 650 mg at 09/18/25 0947 apixaban (ELIQUIS) tablet 2.5 mg, 2.5 mg, oral, BID, ANJU Mo, 2.5 mg at 09/21/25 0937 ascorbic acid (VITAMIN C) tablet 250 mg, 250 mg, oral, Daily, Mikael Balderas MD, 250 mg at 09/21/25 0937 cefTRIAXone (ROCEPHIN) 2 g in sterile water 20 mL IV syringe, 2 g, intravenous, q24h, Lois Pacheco MD, 2 g at 09/21/25 1602 collagenase (SANTYL) 250 unit/gram ointment, , Topical, Daily, Mikael Balderas MD, Given at 09/21/25 0947 dorzolamide (TRUSOPT) 2 % ophthalmic solution 1 drop, 1 drop, Both Eyes, TID, ANJU Mo, 1 drop at 09/21/25 1500 gabapentin (NEURONTIN) capsule 200 mg, 200 mg, oral, Nightly, ANJU Mo, 200 mg at 09/20/25 213 HYDROmorphone (DILAUDID) injection 0.5 mg, 0.5 mg, intravenous, q3h PRN, Mikael Balderas MD, 0.5 mg at111/22/24 1724 lidocaine 4 % patch 1 patch, 1 patch, Topical, Daily, ANJU Mo, 1 patch at 09/20/25 1105 metoprolol succinate (TOPROL-XL) 24 Hour tablet 50 mg, 50 mg, oral, Daily, ANJU Garcia, 50 mgat 09/21/25 0937 micafungin (MYCAMINE) 100 mg in sodium chloride 0.9 % 100 mL IVPB, 100 mg, intravenous, q24h, Lois Pacheco MD, Stopped at 09/21/25 1715 ondansetron (PF) (ZOFRAN) injection 4 mg, 4 mg, intravenous, q6h PRN, ANJU Mo oxyCODONE (ROXICODONE) immediate release tablet 5 mg, 5 mg, oral, q6h PRN, Mikael Balderas MD, 5 mg at111/22/24 0937 pantoprazole (PROTONIX) injection 40 mg, 40 mg, intravenous, q12h SILVANO, Mikael Balderas MD, 40 mg at 09/21/25 0939 PATIENT OWN'S MED: Ambrisentan (LETAIRIS) tablet 5 mg, 5 mg, oral, Daily, ANJU Mo, 5 mg at 09/20/25 2137 PATIENT'S OWN MED: Treprostinil diolamine (ORENITRAM) ER tablet 1 mg, 3 mg, oral, TID, ANJU Mo, 3 mg at 09/21/25 0939 polyethylene glycol (MIRALAX) packet 17 g, 17 g, oral, Nightly, ANJU Mo, 17 g at 09/20/252135 QUEtiapine (SEROquel) tablet 25 mg, 25 mg, oral, Nightly, ANJU Mo, 25 mg at 09/20/252134 sildenafil (REVATIO) tablet 20 mg, 20 mg, oral, TID, ANJU Mo, 20 mg at 09/21/25 1459 [COMPLETED] Insert peripheral IV, , , Once AND Maintain IV access, , , Until discontinued AND [COMPLETED] Saline lock IV, , , Once AND sodium chloride 0.9 % flush 10 mL, 10 mL, intravenous, BID, 10 mL at 09/21/25 0940 AND sodium chloride 0.9 % flush 10 mL, 10 mL, intravenous, PRN, ANJU Mo vancomycin (VANCOCIN) 1,000 mg in sodium chloride 0.9 % 250 mL IVPB, 1,000 mg, intravenous, q24h, Lois Pacheco MD, Stopped at 09/21/25 1929 zinc sulfate (ZINCATE) capsule 220 mg, 220 mg, oral, Daily, Mikael Balderas MD, 220 mg at 09/21/25 0937 [6] PRN medications: acetaminophen, HYDROmorphone, ondansetron, oxyCODONE, [COMPLETED] Insert peripheral IV AND Maintain IV access AND [COMPLETED] Saline lock IV AND sodium chloride AND sodium chloride * Anita Fletcher MD - 09/19/2025 3:53 PM ESTAssociated Order(s): IP CONSULT TO NEPHROLOGY Images from the original note were not included. CONSULT Date of Service: 09/19/25 Chief Complaint Evaluation and management of TERE History Of Present Illness Patient is 80 year old female with history of recent left hip replacement at [facility] ( needing rehab stay for 1 month), CREST syndrome with pulmonary hypertension, aplastic anemia, scleroderma, myeloid dysplasia presented with chest pain when she moves her hands. She stated that it hurts all over Denies any NSAID use ( but has naproxen at home) No shortness of breath Having trouble passing urine Stated her routine BP is about 100-120. No falls Wheel chair bound NO leg swelling No diarrhoea/ no vomiting Poor oral intake Was on sildenafil / ambrisentan for pulmonary hypertension Past Medical History Medical History[1] Surgical History Surgical History[2] Family History Family History[3] Social History Social History[4] Allergies Epinephrine, Bee venom protein (honey bee), Cyclosporine, Mushroom, and Niacin Medications MEDSSCHEDULED[5] MEDSPRN[6] MEDSCONTINUOUS[7] Current medications reviewed. Review of Systems 10 points review of system negative except for pertinent in HPI Last Recorded Vitals: Visit Vitals BP (!) 115/44 (BP Location: Right arm, Patient Position: Lying) Pulse 57 Temp 35.9 ??C (96.6 ??F) (Temporal) Resp 18 Wt Readings from Last 3 Encounters: 09/19/25 54.9 kg (121 lb 1.6 oz) 05/24/25 50.8 kg (112 lb) 04/14/25 49.9 kg (110 lb) Intake/Output last 3 shifts: Intake/Output Summary (Last 24 hours) at 09/19/2025 1554 Last data filed at 09/18/2025 1800 Gross per 24 hour Intake -- Output 300 ml Net -300 ml Physical Exam General: No acute distress HEENT: Normocephalic, atraumatic, anicteric Respiratory: unlabored Cardiovascular: S1 S2 normal Gl: Soft no tenderness Extremities: No cyanosis Neurological: Alert Integumentary: no rashes Psych: Calm, cooperative Results Review Results from last 7 days Lab Units 09/19/25 0551 09/18/25 0556 09/17/25 0545 WBC AUTO K/mcL 4.8 6.0 7.2 HEMOGLOBIN g/dL 8.4* 9.0* 9.7* HEMATOCRIT % 27.9* 29.1* 31.9* MCV FL 101.5* 100.0* 100.0* PLATELETS K/mcL 155 199 231 Results from last 7 days Lab Units 09/19/25 0551 09/18/25 0556 09/17/25 0545 CREATININE mg/dL 1.69* 1.38* 1.17* BUN mg/dL 41* 38* 35* SODIUM mmol/L 142 142 140 POTASSIUM mmol/L 4.1 3.3* 3.6 CHLORIDE mmol/L 110 109 107 CO2 mmol/L 23 24 23 No results found for: PHOS , [id number] , PTH , PUR Iron Date Value Ref Range Status 06/07/2025 33 (L) 40 - 150 mcg/dL Final 05/24/2025 58 40 - 150 mcg/dL Final TIBC Date Value Ref Range Status 06/07/2025 385 250 - 450 mcg/dL Final 05/24/2025 371 250 - 450 mcg/dL Final Ferritin Date Value Ref Range Status 06/07/2025 12 8 - 252 ng/mL Final 05/24/2025 16 8 - 252 ng/mL Final No results found for: COLORUA , CLARITYUA , SPECGRAVUA , PHUA , PROTUA , GLUCOSEUA , KETONESUA , BILIRUBINUA , BLOODUA , UROBILINOGUA , NITRITEUA Impression & Plan Patient is 80 year old female with history of recent left hip replacement at [facility] ( needing rehab stay for 1 month), CREST syndrome with pulmonary hypertension, aplastic anemia, scleroderma, myeloid dysplasia presented with chest pain when she moves her hands. She stated that it hurts all over Routine BP 100-120 On Medication for pulmonary hypertension at home (sildenafil / ambrisentan ) Ct with contrast on 09/15 Echo 09/17: IVC normal size BP has been on low side 90 systolic Having high bladder scan 300s Baseline 0.96 ( admission) Recs: Creatinine starting going up 48 hours post contrast Has been receiving IV lasix since 09/15 Tere differential: Pre-renal/ ATN from low BP/ contrast/ high PVR Her BP was never high, unlikely scleroderma renal crisis ( although there cases of normotensive renal crisis) Agree with IV fluids If having persistent high PVR: for lerma US kidney UA/ urine lytes/ urine protein/creatinine ratio Suggest cutting back metoprolol to 50mg ( in view of low BP) Daily labs Monitor urine output Anita Fletcher MD [1] Past Medical History: Diagnosis Date Anemia 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 [4] Social History Tobacco Use Smoking status: Never Smokeless tobacco: Never Substance Use Topics Alcohol use: Never Drug use: Never [5] apixaban, 2.5 mg, oral, BID ascorbic acid, 250 mg, oral, Daily cefTRIAXone, 1 g, intravenous, q24h collagenase, , Topical, Daily dorzolamide, 1 drop, Both Eyes, TID doxycycline, 100 mg, intravenous, q12h gabapentin, 200 mg, oral, Nightly lidocaine, 1 patch, Topical, Daily metoprolol succinate, 100 mg, oral, Daily pantoprazole, 40 mg, intravenous, q12h SILVANO ambrisentan, 5 mg, oral, Daily treprostinil diolamine, 3 mg, oral, TID polyetheylene glycol, 17 g, oral, Nightly QUEtiapine, 25 mg, oral, Nightly sildenafil, 20 mg, oral, TID sodium chloride, 10 mL, intravenous, BID zinc sulfate, 220 mg, oral, Daily [6] PRN medications: acetaminophen, HYDROmorphone, ondansetron, oxyCODONE, [COMPLETED] Insert peripheral IV AND Maintain IV access AND [COMPLETED] Saline lock IV AND sodium chloride AND sodium chloride [7] sodium chloride 0.9 % with KCl 40 mEq/L, 75 mL/hr, Last Rate: 75 mL/hr (09/19/25 0555) * Larissa Tirado RD - 09/18/2025 5:10 PM ESTAssociated Order(s): IP CONSULT TO NUTRITION SERVICES 09/18/2025 @ 5:22 PM EST Nutrition Consult Note/Nutrition Assessment Reason for RD Intervention: Assessment Type: Provider Consult Reason for Assessment: Wound, Decreased Intake, Pressure Injury Anthropometrics: Height: 160 cm (63 ) Weight: 47.6 kg (105 lb) BMI (Calculated): 18.6 BMI Class: Underweight IBW (lbs): 115 Recent Weight Change: Yes Other (Comment): 12% weight loss over past year, 19% over uncertain duration Current Diet and Supplements: Dietary Orders (From admission, onward) Start Ordered 09/18/25 0934 Adult diet [facility]; Modified Consistency Options for Liquidsand Solids; Clear Liquid Diet effective now Question Answer Comment Location [facility] Diet Type (req) Modified Consistency Options for Liquids and Solids Modified Consistency Options for Liquids and Solids Clear Liquid 09/18/25 0935 09/17/25 1511 Dietary nutrition supplements Three times daily (TID); [facility]; Standard Oral Supplement Continuous Comments: Chocolate ensure with meals Question Answer Comment Frequency Three times daily (TID) Location [facility] Supplements Standard Oral Supplement 09/17/25 1511 History of presenting illness: Patient is a 80 y.o. female with a history of Medical History[1] Surgical History[2] admitted 09/15/2025 with Fluid overload. Food/Nutrition History: Previous Diet / Nutrition Education / Counseling: Patient with decreased po intake over past year. Patient fell at home 1 year ago and had hip fracture repair. Patient continues to have hip pain and required a total [place] [facility] [place]. Patient had been experiencing early satiety during this time, feeling full after only a few bites. She has been trying to maintain her weight by eating high calorie foods like peanut butter and Ensure supplements. She estimates 10-15 lb weight loss over the past year, but states she was 130 lbs at one point before her initial fall. Patient states she had been able to consume regular texture foods. Her ostomy output has been coretta l.Allergy to niacin noted, patient not able to recall dose which caused skin reaction. She currently takes a B complex at home but does not know the brand or dose or if it contains niacin. she does not take a multivitamin. Social Influencers of Health & Nutrition - Hunger Vital Signs: Within the past 12 months we worried whether our food would run out before we got money to buy more: Never true Within the past 12 months the food we bought just didn't last and we didn't have money to get more: Never true Who obtained answers? Hunger vital signs completed by RD. Assistance: No assistance needed at this time Weight History: Wt Readings from Last 10 Encounters: 09/15/25 47.6 kg (105 lb) 05/24/25 50.8 kg (112 lb) 04/14/25 49.9 kg (110 lb) 11/05/24 48.2 kg (106 lb 3.2 oz) 04/10/24 49.4 kg (109 lb) 04/10/24 49.4 kg (109 lb) 04/10/24 49.4 kg (109 lb) 04/10/24 49.4 kg (109 lb) 11/11/23 47.2 kg (104 lb) 08/06/23 51 kg (112 lb 8 oz) Subjective Assessment: Patient presents with chest pain, pneumonia, TERE, bilateral pleural effusions, dilated esophagus question of achalasia, pressure injuries to sacrum and buttock. Patient currently on clear liquids with blended soups and Ensure supplements permitted. Plan for EGD on 09/20. Nutrition-Related Lab Values: Results from last 7 days Lab Units 09/18/25 0556 09/17/25 0545 09/16/25 0522 09/15/25 1502 SODIUM mmol/L 142 < > 140 138 POTASSIUM mmol/L 3.3* < > 3.4* 3.9 MAGNESIUM mg/dL -- -- 1.9 -- CHLORIDE mmol/L 109 < > 108 107 CO2 mmol/L 24 < > 26 24 BUN mg/dL 38* < > 36* 40* CREATININE mg/dL 1.38* < > 0.97 0.93 EGFR mL/min/1.73m2 39* < > 59* 62 CALCIUM mg/dL 7.5* < > 7.2* 7.6* BILIRUBIN TOTAL mg/dL -- -- -- 0.4 ALK PHOS unit/L -- -- -- 640* ALT unit/L -- -- -- 15 AST unit/L -- -- -- 29 GLUCOSE mg/dL 91 < > 106* 95 WBC AUTO K/mcL 6.0 < > 4.1* 5.1 < > = values in this interval not displayed. Medications: MEDSSCHEDULED[3] CONTINUOUS: MEDSCONTINUOUS[4] MEDSPRN[5] Food/Nutrition-Current Status: Intake Type: P.O. Appetite: Poor Intake Amount (%): 0-25% Intake Assessment: Inadequate Main IVF: NS w/KCL Main IVF Rate (mL/hr): 75 Nutrition Focused Physical Findings: Overall Appearance: Patient appears thin, moderate to severe muscle and fat depletion Digestive System (Mouth to Rectum): Appetite change, Early satiety Nerves and Cognition: Oriented, Alert Skin: unstageable pressure injury to sacrum, Stage 2 buttock Loss of Fat Location: Orbital, Triceps, Ribs Loss of Fat Amt-Orbital: Moderate Loss of Fat Amt-Triceps: Moderate Loss of Fat Amt-Ribs: Moderate Loss of Muscle Location: Temples, Clavicle, Shoulders, Interosseous Loss of Muscle Amt-Temples: Moderate Loss of Muscle Amt-Clavicle: Severe Loss of Muscle Amt-Shoulders: Severe Loss of Muscle Amt-Inter Musc: Severe Nutrition Diagnosis: Code Type: Moderate-Chronic (E44.0) Moderate-Chronic Criteria: Energy Intake <75%/1mo, Mild Body Fat Depletion, Mild Muscle Mass Depletion Status: New Diagnosis: Malnutrition Etiology: Physiologic causes Symptoms: moderate to severe muscle and fat depletion, meeting <75% estimated needs for > 1 month Additional Nutrition Diagnosis?: Yes Status: New Diagnosis: Altered GI Function Etiology: Compromised GI function Symptoms: early satiety, decreased PO intaek, dilated esophagus with residual food present Nutrition Interventions: Medical Food Supplement, Vitamin/Mineral Supplement Medical Food Supplement(s): Ensure Plus TID Add vitamin C 250 mg daily and zinc 220 mg daily for 8 days. Will hold off on multivitamin for now due to uncertainty over niacin reaction. Add additional vitamin A and Alex as able with renal function. Nutrition Education Education Materials Reviewed: Follow for need. Goals: Patient will initially consume at least 50% of meals. , Patient will consume ONS., Improvement in renal labs., Minimize risk of refeeding syndrome., Maintain weight., Stooling appropriately., and Wound healing progress. Coordination of Patient Care: Care plan discussed with patient/family. and Malnutrition OPA sent to provider via [facility] Monitoring/Evaluation: Food Intake, Medical Food Supp/Oral Nutrition Supp, Weight, Gastrointestinal Profile, Other (Comment) (wound healing) Follow Up: Nutrition Priority Level: High Nutritional Discharge Recommendations: RD remains available and will continue to follow. 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 (calcinosis, Raynaud's phenomenon, esophageal dysfunction, sclerodactyly, telangiectasia) (CMS/HCC V24, CMS/HCC V28) GERD (gastroesophageal reflux disease) Mitochondrial myopathies Pulmonary fibrosis (CMS/HCC V24, CMS/HCC V28) Pulmonary HTN (CMS/HCC V24, CMS/HCC V28) Scleroderma (CMS/HCC V24, CMS/HCC V28) Sjogren syndrome (CMS/HCC V24) [2] Past Surgical History: Procedure Laterality Date COLONOSCOPY COLOSTOMY ESOPHAGOGASTRODUODENOSCOPY FOOT SURGERY Bilateral BONIONS HIP SURGERY Left 06/11/[address] HYSTERECTOMY SHOULDER SURGERY Right [3] apixaban, 2.5 mg, oral, BID collagenase, , Topical, Daily dorzolamide, 1 drop, Both Eyes, TID gabapentin, 200 mg, oral, Nightly lidocaine, 1 patch, Topical, Daily metoprolol succinate, 100 mg, oral, Daily pantoprazole, 40 mg, intravenous, q12h SILVANO ambrisentan, 5 mg, oral, Daily treprostinil diolamine, 3 mg, oral, TID piperacillin-tazobactam, 4.5 g, intravenous, q8h polyetheylene glycol, 17 g, oral, Nightly QUEtiapine, 25 mg, oral, Nightly sildenafil, 20 mg, oral, TID sodium chloride, 10 mL, intravenous, BID [4] sodium chloride 0.9 % with KCl 40 mEq/L, 75 mL/hr [5] PRN medications: acetaminophen, HYDROmorphone, ondansetron, oxyCODONE, [COMPLETED] Insert peripheral IV AND Maintain IV access AND [COMPLETED] Saline lock IV AND sodium chloride AND sodium chloride * Matt Samson DO - 09/16/2025 3:42 PM ESTAssociated Order(s): IP CONSULT TO GASTROENTEROLOGY INITIAL GI CONSULT CONSULTING PROVIDER: Mikael Balderas MD REASON FOR CONSULT: ? achalasia HPI: 80-year-old female who I am asked to see for concern of achalasia. The patient has a complex medical history which includes but is not limited to recurrent AVM related lower GI bleed, crest syndrome, myelodysplasia, aplastic anemia, mitochondrial myopathy, hypertension, hyperlipidemia, GERD, essential tremor, HFpEF, recurrent pneumonias, neuropathy. The patient is currently admitted to [facility] for management of chest pain of unclear etiology. The patient has been living at a long-term rehab over the past 4 weeks recovering from left hip replacement surgery which she had at [facility] last month. Over the past couple days she has been reporting to her SNF staff that she has been experiencing chest pain without any associated PND, orthopnea or shortness of breath. Given the ongoing symptoms she was recommended to seek attention in the ED. There has been no melena, hematochezia or hematemesis. The patient does report to poor appetite. She also has a new onset sacral ulcer which is extremely painful. She refers to PPI for management of her intermittent GERD symptoms. On arrival to [facility] ED she was found to be afebrile and hemodynamically stable. Her CBC was at baseline in the setting of myelodysplastic syndrome and aplastic anemia. BNP elevated over 900. Mild troponin noted. CTA negative for PE. EKG nonischemic. The CTA also showed a markedly dilated esophagus suggestive of achalasia. She was also found to have a coccyx wound, left lower lobe pneumonia, pleuraleffusions, mild ascites, lower extremity edema and electrolyte disturbances. Of note, in 2022 and 2023 the patient underwent endoscopies by Dr. Jara for evaluation of anemia. She was found to have an inflamed esophagus without evidence of Yumiko. Of note, she has a history of bleeding AVMs both in the stomach and the colon that have been treated endoscopically in the past. The patient denies carries a diagnosis of achalasia. ROS: GENERAL: No fever, weight loss, weakness. HEENT: No double vision, blurred vision, sorethroat, nasal discharge, nosebleeds. NECK: No pain, swelling, rashes. RESPIRATORY: No cough, wheezing or shortness of breath CARDIOVASCULAR: No chest pain, leg swelling or palpitations GI:As per HPI section MUSCULOSKELETAL: No joint pain or swelling, back pain. No unexplained myalgias. SKIN: No lesions, rash or itching. The rest of the ROS is negative except as mentioned in the HPI section. PAST MEDICAL HISTORY: As detailed above PAST SURGICAL HISTORY: Hip replacement EGD Colonoscopy Bone marrow biopsy SOCIAL HISTORY: Currently in a long-term rehab after hip surgery No tobacco use No EtOH use FAMILY HISTORY: No premature cancers MEDICATIONS: Apixaban, omeprazole, sildenafil, levocarnitine, vitamin C, furosemide, sildenafil, ALA, ubiquinol,Orenitram, metolazone ALLERGIES: As listed on the HPI PHYSICAL EXAM: Visit Vitals BP 115/61 (BP Location: Left arm, Patient Position: Lying) Pulse 83 Temp 36.1 ??C (97 ??F) Resp 18 Ht 1.6 m (63 ) Wt 47.6 kg (105 lb) SpO2 94% BMI 18.60 kg/m?? OB Status Postmenopausal Smoking Status Never BSA 1.47 m?? APPEARANCE: No distress. Non-toxic appearing. HEART: RRR LUNG: CTA ABDOMEN: soft, non distended, no masses, no tensed ascites RECTAL: Exam deferred EXTREMITIES: LE edema. NEURO: AOx3. SKIN: Pale. LABS: Lab Results Component Value Date WBC 4.1 (L) 09/16/2025 HGB 8.6 (L) 09/16/2025 HCT 27.8 (L) 09/16/2025 MCV 100.0 (H) 09/16/2025 PLT 140 09/16/2025 Lab Results Component Value Date ALT 15 09/15/2025 AST 29 09/15/2025 ALKPHOS 640 (H) 09/15/2025 BILITOT 0.4 09/15/2025 Lab Results Component Value Date NA 140 09/16/2025 K 3.4 (L) 09/16/2025 CL 108 09/16/2025 CO2 26 09/16/2025 GLUCOSE 106 (H) 09/16/2025 BUN 36 (H) 09/16/2025 CREATININE 0.97 09/16/2025 CALCIUM 7.2 (L) 09/16/2025 PROT 5.1 (L) 09/15/2025 ALBUMIN 2.5 (L) 09/15/2025 BILITOT 0.4 09/15/2025 AST 29 09/15/2025 ALT 15 09/15/2025 MG 1.9 09/16/2025 ALKPHOS 640 (H) 09/15/2025 EGFR 59 (L) 09/16/2025 No results found for: LIPASE IMAGING: CTA reviewed. There is a markedly dilated esophagus. I do not see a large hiatal hernia. IMPRESSION: 1. Pneumonia of left lung due to infectious organism, unspecified part of lung 2. SOB (shortness of breath) 3. Leg swelling 4. Pleural effusion 5. Congestive heart failure, unspecified HF chronicity, unspecified heart failure type (CMS/[facility] V24, CMS/[facility] V28) PLAN: The patient is hemodynamically stable without signs of acute distress. She appears to be third spacing with lower extremity edema and pleural effusions. She shows no evidence of respiratory distress and she is not on supplemental O2 able to speak in full sentences. The patient's daughter and (Dr. Romero) were present at the bedside and all their questions and concerns were addressed. In addition, [place] [facility] [place] were also reviewed today. The patient has radiographic evidence of achalasia. Her prior EGDs by Dr. Jara has demonstrated somewhat of a dilated esophagus with marked mucosal inflammation without any evidence of Yumiko or other infections. She also has CREST syndrome which is known to worsen reflux disease and typically gives patients on dilated LES, versus achalasia that typically has a hypertensive LES. Endoscopic evaluation is warranted. Severe esophagitis, achalasia, malignancy, etc. is possible. Ifthe LES is hypotensive, the patient might benefit from pneumatic balloon dilation. No evidence of food bolus impaction. The patient tells me that she is tolerating regular diet and if any liquids as long as she eats slow. She is able to manage her secretions. It is possible that her pneumonia is related to her achalasia. No signs of GI bleed is by her history. Recommendations: Aspiration precautions IV PPI while the patient is at the hospital EGD during this admission. However, the patient was to have it done in the outpatient setting as she is somewhat overwhelmed with all her activities currently. Hopefully she excepts to have it done over the next 1 to 2 weeks. Liquid diet. Diuresis as per primary team. Obtain vitamin A, D, E, K, B12, iron studies to assess this patient's nutritional status. She does have evidence of hyperbilirubinemia. Nutrition consultation. I will continue to discuss an EGD during this admission to the patient, but she is firm about not having it done during this endoscopy. I spent a total of 65 minutes today reviewing the chart/medical records to include outside records,talking to the patient's family members in the room, speaking with the patient, formulating, discussing and coordinating the treatment plan/management as well as documenting today's encounter. Orders Placed This Encounter Procedures Hospital bed MRSA molecular study XR Chest 2 Views CBC and differential Troponin I high sensitivity APTT Protime-INR CBC auto differential B-Type Natriuretic Peptide (BNP) Comprehensive Metabolic Panel (CMP) Lactate Basic metabolic panel Magnesium CBC and differential Procalcitonin C-reactive protein Troponin I high sensitivity CBC auto differential Troponin I high sensitivity CBC and differential Basic metabolic panel Adult diet [facility]; Cardiac; Cardiac Continuous Pulse Oximetry ACTIVITY As tolerated Vital Signs (specify frequency) Pulse Oximetry Maintain IV access Apply graduated compression stockings (GCS) Apply Sequential compression device (SCD) Intake and output Weigh patient Cardiac Monitoring for Chronic CHF Full code - Default Wound Care Inpatient Follow-Up Inpatient consult to Nutrition Services Inpatient consult to Gastroenterology PT eval and treat [facility]ST eval and treat [facility]NA[facility]ST eval and treat ECG 12 lead (Now) ECG 12 lead PRN Transthoracic echocardiogram (TTE) complete with PRN contrast, bubble, strain, and 3D order panel Insert peripheral IV Insert peripheral IV Saline lock IV Admit to Inpatient ED to floor bed request Vascular US Duplex Lower Extremity Venous Bilateral CT Angio Chest wo and/or w Contrast XR CHEST 2 VIEWS INSERT PERIPHERAL IV INSERT PERIPHERAL IV SALINE LOCK IV CONTINUOUS PULSE OXIMETRY ACTIVITY VITAL SIGNS PULSE OXIMETRY MAINTAIN IV ACCESS APPLICATION GRADUATED COMPRESSION STOCKINGS SEQUENTIAL COMPRESSION DEVICE INTAKE AND OUTPUT MEASURE WEIGHT CARDIAC MONITORING CT ANGIO CHEST WO AND/OR W CONTRAST VAS US DUPLEX LOWER EXT VENOUS BILAT ED TO FLOOR BED REQUEST FULL CODE DEFAULT ADULT DIET ADMIT TO INPATIENT WOUND CARE INPATIENT FOLLOW-UP IP CONSULT TO NUTRITION SERVICES IP CONSULT TO GASTROENTEROLOGY [facility] EVAL AND TREAT [facility] EVAL AND TREAT PT EVAL AND TREAT HOSPITAL BED . Signatures Board Certified, Gastroenterology and Internal Medicine Gastroenterology and Hepatology Practice [facility] [email or web address] [phone] [address] [facility]. [address] [place] [id number] [email or web address] in this encounter Plan of Treatment Upcoming Encounters Date Type Department Care Team (Late st Contact Info) Description 01/24/2026 10:30 AM EDT Office Visit [facility] Hematology Oncology [address] [place] [id number] Marilee Rahman MD [address] [place] [address] Pending Results Name Type Priority Associated Diagnoses Date /Time Extractable Nuclear Antibodies Profile Lab Routine 09/20/2025 4: 50 AM EST Anti-scleroderma antibody Lab Routine 09/20/2025 4:50 AM EST US Retroperitoneal Complete Imaging Routine 09/20/2025 12:42 PM EST Blood Culture, Peripheral Draw #1 Microbiology STAT 09/21/2025 2:35 PM EST Blood Culture, Peripheral Draw #2 Microbiology STAT 09/21/2025 2:50 PM EST Scheduled Orders Name Type Priority Associated Diagnoses Order Schedule Extractable Nuclear Antibodies Profile Lab Routine AM Draw for 1 Occurrences starting 09/20/2025 until 09/20/2025 Anti-scleroderma antibody Lab Routine AM Draw for 1 Occurrences starting 09/20/2025 until 09/20/2025 US Retroperitoneal Complete Imaging Routine Once for 1 Occurrences starting 09/20/2025 until 09/20/2025 Transesophageal echocardiogram (SERGIO) with possible cardioversion with PRN contrast Echocardiography Routine 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 Once for 1 Occurrences starting 09/23/2025 until 09/23/2025 Scheduled Referrals Name Type Priority Associated Diagnoses Order Schedule Ambulatory referral to Home Health Outpatient Referral Routine Pneumonia of left lung due to infectious organism, unspecified part of lung 1 Occurrences starting 09/24/2025 until 09/24/2026 documented as of this encounter Procedures Procedure Name Priority Date/Time Associated Diagnosis Comments ECG 12-LEAD Routine 09/24/2025 9:41 AM EST CBC WITH AUTO DIFFERENTIAL Timed 09/24/2025 5:22 AM EST CBC AND DIFFERENTIAL Timed 09/24/2025 5:22 AM EST SERGIO COMPLETE Routine 09/23/2025 11:47 AM EST Splenic infarct Aortic valve vegetation CBC WITH AUTO DIFFERENTIAL Timed 09/23/2025 5:23 AM EST CBC AND DIFFERENTIAL Timed 09/23/2025 5:23 AM EST PHOSPHORUS Routine 09/23/2025 5:23 AM EST MAGNESIUM Routine 09/23/2025 5:23 AM EST BASIC METABOLIC PANEL Routine 09/23/2025 5:[address] ABDOMEN PELVIS W CONTRAST STAT 09/22/2025 11:[address] HEAD WO AND W CONTRAST STAT 09/22/2025 11:02 AM EST CBC WITH AUTO DIFFERENTIAL Timed 09/22/2025 4:54 AM EST CBC AND DIFFERENTIAL Timed 09/22/2025 4:54 AM EST PHOSPHORUS Routine 09/22/2025 4:54 AM EST MAGNESIUM Routine 09/22/2025 4:54 AM EST BASIC METABOLIC PANEL Timed 09/22/2025 4:54 AM EST CULTURE BLOOD STAT 09/21/2025 2:50 PM EST CULTURE BLOOD STAT 09/21/2025 2:35 PM EST ECG 12-LEAD Routine 09/21/2025 11:16 AM EST HIV 1, 2 ANTIBODY, P24 ANTIGEN WITH REFLEX TO DIFFERENTIATION Add-On 09/21/2025 5:20 AM EST CBC WITH AUTO DIFFERENTIAL Timed 09/21/2025 5:20 AM EST CBC AND DIFFERENTIAL Timed 09/21/2025 5:20 AM EST BASIC METABOLIC PANEL Timed 09/21/2025 5:20 AM EST EGD Routine 09/20/2025 8:07 AM EST Achalasia TISSUE EXAM Routine 09/20/2025 8:03 AM EST Pleural effusion Congestive heart failure, unspecified HF chronicity, unspecified heart failure type (CMS/HCC V24, CMS/HCC V28) Fluid overload Achalasia Leg swelling SOB (shortness of breath) Pneumonia of left lung due to infectious organism, unspecified part of lung NICK IFA WITH TITER AND PATTERN Routine 09/20/2025 4:50 AM EST CBC WITH AUTO DIFFERENTIAL Timed 09/20/2025 4:50 AM EST CBC AND DIFFERENTIAL Timed 09/20/2025 4:50 AM EST RHEUMATOID FACTOR Routine 09/20/2025 4:5 0 AM EST C3 COMPLEMENT Routine 09/20/2025 4:50 AM EST C4 COMPLEMENT Routine 09/20/2025 4:50 AM EST BASIC METABOLIC PANEL Timed 09/20/2025 4:50 AM EST URINALYSIS WITH REFLEX MICROSCOPIC Routine 09/19/2025 4:50 PM EST URINALYSIS WITH REFLEX MICROSCOPIC Routine 09/19/2025 4:50 PM EST PROTEIN AND CREATININE WITH RATIO, URINE Routine 09/19/2025 4:50 PM EST SODIUM, URINE, RANDOM Routine 09/19/2025 4:50 PM EST CREATININE, URINE, RANDOM Routine 09/19/2025 4:50 PM EST CBC WITH AUTO DIFFERENTIAL Timed 09/19/2025 5:51 AM EST CBC AND DIFFERENTIAL Timed 09/19/2025 5:51 AM EST BASIC METABOLIC PANEL Timed 09/19/2025 5:51 AM EST CBC WITH AUTO DIFFERENTIAL Timed 09/18/2025 5:56 AM EST CBC AND DIFFERENTIAL Timed 09/18/2025 5:56 AM EST BASIC METABOLIC PANEL Timed 09/18/2025 5:56 AM EST TRANSTHORACIC ECHOCARDIOGRAM (TTE) COMPLETE W/ CONTRAST Routine 09/17/2025 11:12 AM EST Congestive heart failure, unspecified HF chronicity, unspecified heart failure type (CMS/HCC V24, CMS/HCC V28) CBC WITH AUTO DIFFERENTIAL Timed 09/17/2025 5:45 AM EST CBC AND DIFFERENTIAL Timed 09/17/2025 5:45 AM EST BASIC METABOLIC PANEL Timed 09/17/2025 5:45 AM EST TROPONIN I HIGH SENSITIVITY Routine 09/16/2025 11:21 AM EST CBC WITH AUTO DIFFERENTIAL Routine 09/16/2025 5:22 AM EST CBC AND DIFFERENTIAL Routine 09/16/2025 5:22 AM EST MAGNESIUM Routine 09/16/2025 5:22 AM EST BASIC METABOLIC PANEL Routine 09/16/2025 5:22 AM EST TROPONIN I HIGH SENSITIVITY STAT 09/15/2025 8:19 PM EST LACTATE STAT 09/15/2025 8:19 PM EST MRSA PCR STAT 09/15/2025 8:[address] ANGIO CHEST WO AND/OR W CONTRAST STAT 09/15/2025 5:18 PM EST SOB (shortness of breath) TROPONIN I HIGH SENSITIVITY STAT 09/15/2025 3:02 PM EST PROCALCITONIN Add-On 09/15/2025 3:02 PM EST CBC WITH AUTO DIFFERENTIAL STAT 09/15/2025 3:02 PM EST ACTIVATED PARTIAL THROMBOPLASTIN TIME STAT 09/15/2025 3:02 PM EST PROTHROMBIN TIME WITH INR STAT 09/15/2025 3:02 PM EST CBC AND DIFFERENTIAL STAT 09/15/2025 3:02 PM EST C-REACTIVE PROTEIN Add-On 09/15/2025 3: 02 PM EST B-TYPE NATRIURETIC PEPTIDE STAT 09/15/2025 3:02 PM EST COMPREHENSIVE METABOLIC PANEL STAT 09/15/2025 3:02 PM EST VAS US DUPLEX LOWER EXT VENOUS BILAT STAT 09/15/2025 2:16 PM EST Leg swelling XR CHEST 2 VIEWS STAT 09/15/2025 1:31 PM EST ECG 12-LEAD STAT 09/15/2025 12:41 PM EST documented in this encounter Results * ECG 12 lead (09/24/2025 9:41 AM EST) Ventricular Rate ECG 87 BPM GEMUSE Atrial Rate 87 BPM GEMUSE P-R Interval 156 ms GEMUSE QRS Duration 78 ms GEMUSE Q-T Interval 398 ms GEMUSE QTc 478 ms GEMUSE P Wave [place] 56 degrees GEMUSE R [place] 103 degrees GEMUSE T [place] 91 degrees GEMUSE ECG Interpretation Normal sinus rhythm Rightward axis Cannot rule out Anterior infarct (cited on or before 21-SEP-2025) inferior St elevation, nonspecific Abnormal ECG When compared with ECG of 21-SEP-2025 11:16, No significant change was found Confirmed by Bishop MOREL JOHN ([id number]) on 09/25/2025 2:43:57 PM GEMUSE 09/24/2025 9:41 AM EST 09/25/2025 2:43 PM EST Bob Brown MD ECG ORDERABLES Final Result GEMUSE * (ABNORMAL) CBC auto differential (09/24/2025 5:22 AM EST) [facility] WBC 10.1 4.8 - 10.8 K/mcL LAB HEMETOLOGY METHOD 09/24/2025 6:[address] [facility] RBC 3.60(L) 3.80 - 4.80 M/mcL LAB HEMETOLOGY METHOD 09/24/2025 6:[address] [facility] Hemoglobin 10.9(L) 11.5 - 16.0 g/dL LAB HEMETOLOGY METHOD 09/24/2025 6:[address] [facility] Hematocrit 35.8 35.0 - 47.0 % LAB HEMETOLOGY METHOD 09/24/2025 6:[address] [facility] MCV 100.0(H) 79.0 - 98.0 FL LAB HEMETOLOGY METHOD 09/24/2025 6:[address] [facility] MCH 30.4 27.0 - 32.0 pcg LAB HEMETOLOGY METHOD 09/24/2025 6:[address] [facility] MCHC 30.4(L) 32.0 - 37.0 g/dL LAB HEMETOLOGY METHOD 09/24/2025 6:[address] [facility] RDW 18.6(H) 11.0 - 15.0 % LAB HEMETOLOGY METHOD 09/24/2025 6:[address] [facility] Platelets 382 130 - 400 K/mcL LAB HEMETOLOGY METHOD 09/24/2025 6:[address] [facility] MPV 9.3 7.0 - 11.0 FL LAB HEMETOLOGY METHOD 09/24/2025 6:[address] [facility] NRBC 0.0 <1.0 % LAB HEMETOLOGY METHOD 09/24/2025 6:[address] [facility] NRBC Absolute 0.00 <0.10 K/mcL LAB HEMETOLOGY METHOD 09/24/2025 6:[address] [facility] Neutrophils Relative 91.0 % LAB HEMETOLOGY METHOD 09/24/2025 6:[address] [facility] Lymphocytes Relative 3.9 % LAB HEMETOLOGY METHOD 09/24/2025 6:[address] [facility] Monocytes Relative 3.4 % LAB HEMETOLOGY METHOD 09/24/2025 6:[address] [facility] Eosinophils Relative 0.7 % LAB HEMETOLOGY METHOD 09/24/2025 6:[address] [facility] Basophils Relative 0.2 % LAB HEMETOLOGY METHOD 09/24/2025 6:[address] [facility] Immature Granulocytes Relative 0.8 % LAB HEMETOLOGY METHOD 09/24/2025 6:[address] [facility] Neutrophils Absolute 9.17(H) 1.50 - 7.00 K/mcL LAB HEMETOLOGY METHOD 09/24/2025 6:47 AM EST [facility] Lymphocytes Absolute 0.39(L) 1.00 - 5.00 K/mcL LAB HEMETOLOGY METHOD 09/24/2025 6:47 AM EST [facility] Monocytes Absolute 0.34 0.20 - 1.00 K/mcL LAB HEMETOLOGY METHOD 09/24/2025 6:47 AM EST [facility] Eosinophils Absolute 0.07 0.00 - 0.50 K/mcL LAB HEMETOLOGY METHOD 09/24/2025 6:47 AM EST [facility] Basophils Absolute 0.02 0.00 - 0.20 K/mcL LAB HEMETOLOGY METHOD 09/24/2025 6:[address] [facility] Immature Granulocytes Absolute 0.08(H) 0.00 - 0.03 K/mcL LAB HEMETOLOGY METHOD 09/24/2025 6:[address] [facility] Blood Venous blood specimen / Unknown Venipuncture / Unknown 09/24/2025 5:22 AM EST 09/24/2025 6:26 AM EST us Mikael Balderas MD LAB BLOOD ORDERABLES Final Resul t [facility] [address] [place] [address], [place] [phone] * (ABNORMAL) SERGIO COMPLETE (09/23/2025 11:47 AM EST) BSA 1.45 m2 CV PACS HEMO Aortic Sinus Valsalva 3.2 cm CV PACS HEMO Ascending Aorta 3.0 cm CV PACS HEMO Ascending Aorta Index 1.91 cm/m2 CV PACS HEMO MV Mean Gradient 4 mmHg CV PACS HEMO E Wave Deceleration Time 322(A) 119 - 242 ms CV PACS HEMO MV PHT 93 ms CV PACS HEMO MV Area PHT 2.4 cm2 CV PACS HEMO MV Area Planimetry 2.3 cm2 CV PACS HEMO Anatomical Region Laterality Modality Ultrasound Narrative 09/23/2025 5:20 PM EST Transesophageal echocardiogram performed to rule out endocarditis based on question of endocarditis from transthoracic echo. 1. No clear evidence of valvular or structural endocarditis. 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 2. Planimetered mitral valve area was actually around 2.3 cm -not stenotic. There is no other hemodynamically significant valve disease noted. 3. There is no evidence of thrombus in the left atrial appendage. Appendage velocities were slightly reduced however. 4. Severe concentric LV hypertrophy with hyperdynamic LV systolic function. Mildly dilated right ventricle with normal systolic function. Left Ventricle Left ventricle cavity size is normal. There is severe concentric hypertrophy. Systolic function is hyperdynamic with an ejection fraction over 70%. There are no regional LV wall motion abnormalities. Right Ventricle Right ventricle cavity is mildly dilated. Systolic function is normal. Left Atrium Left atrium cavity is severely dilated. The pulmonary veins were all visualized. The pulmonary veins demonstrate normal venous flow. The atrial appendage velocity is reduced (less than 40 cm/sec). There is no thrombus in the left atrial appendage. There appears to be lipomatous hypertrophy of the interatrial septum. No patent foramen ovale visualized. Right Atrium Right atrium cavity is severely dilated. There is a prominent Eustachian valve. It is free of vegetations. IVC/SVC Port catheter tip seen at the entrance of the SVC to the RA. It is free of vegetation. Mitral Valve The leaflets are mildly thickened and exhibit normal excursion. There is severe annular calcification. There is trace regurgitation. There is no significant mitral stenosis. 3D postprocessing of the valve was performed to yield a planimetered mitral valve area of 2.3 cm . MV mean gradient is 4 mmHg. Tricuspid Valve Tricuspid valve structure is normal. There is trace regurgitation. There is no evidence of tricuspid valve stenosis. Cannot assess RVSP. Aortic Valve The aortic valve is trileaflet. The leaflets are moderately thickened and exhibit normal excursion. There is a small Lambl's excrescence most likely which is a benign finding. Alternatively, this may just be a focus of degenerative fibrotic tissue. There are no vegetations noted. 3D rendering of the valve was performed both with and without color Doppler and confirmed the above-mentioned findings. There is no regurgitation or stenosis. Pulmonic Valve Pulmonic valve structure is normal. There is trace pulmonic valve regurgitation. There is no evidence of pulmonic valve stenosis. Ascending Aorta The aorta appears normal in size. Pericardium Pericardium appears normal. Study Details Overall the study quality was adequate. A transesophageal echo was performed using 3D imaging with postprocessing performed on an independent workstation. The underlying ECG rhythm was sinus rhythm. The procedure, risks and alternatives were explained. Informed consent was obtained. The probe was inserted by the client technical specialist. There was no probe insertion difficulty. by anesthesia. The patient had no complications. Estimated blood loss: no blood loss. No specimens were collected. us Briana Mix MD CV ECHO PROCEDURES Final Result * (ABNORMAL) CBC auto differential (09/23/2025 5:23 AM EST) WBC 9.6 4.8 - 10.8 K/mcL LAB HEMETOLOGY METHOD 09/23/2025 6:[address] [facility] RBC 3.20(L) 3.80 - 4.80 M/mcL LAB HEMETOLOGY METHOD 09/23/2025 6:[address] [facility] Hemoglobin 9.7(L) 11.5 - 16.0 g/dL LAB HEMETOLOGY METHOD 09/23/2025 6:[address] [facility] Hematocrit 32.0(L) 35.0 - 47.0 % LAB HEMETOLOGY METHOD 09/23/2025 6:[address] [facility] MCV 100.0(H) 79.0 - 98.0 FL LAB HEMETOLOGY METHOD 09/23/2025 6:[address] [facility] MCH 30.3 27.0 - 32.0 pcg LAB HEMETOLOGY METHOD 09/23/2025 6:[address] [facility] MCHC 30.3(L) 32.0 - 37.0 g/dL LAB HEMETOLOGY METHOD 09/23/2025 6:[address] [facility] RDW 18.9(H) 11.0 - 15.0 % LAB HEMETOLOGY METHOD 09/23/2025 6:[address] [facility] Platelets 287 130 - 400 K/mcL LAB HEMETOLOGY METHOD 09/23/2025 6:[address] [facility] MPV 10.0 7.0 - 11.0 FL LAB HEMETOLOGY METHOD 09/23/2025 6:[address] [facility] NRBC 0.0 <1.0 % LAB HEMETOLOGY METHOD 09/23/2025 6:[address] [facility] NRBC Absolute 0.00 <0.10 K/mcL LAB HEMETOLOGY METHOD 09/23/2025 6:[address] [facility] Neutrophils Relative 88.0 % LAB HEMETOLOGY METHOD 09/23/2025 6:[address] [facility] Lymphocytes Relative 4.9 % LAB HEMETOLOGY METHOD 09/23/2025 6:[address] [facility] Monocytes Relative 5.7 % LAB HEMETOLOGY METHOD 09/23/2025 6:[address] [facility] Eosinophils Relative 0.4 % LAB HEMETOLOGY METHOD 09/23/2025 6:[address] [facility] Basophils Relative 0.3 % LAB HEMETOLOGY METHOD 09/23/2025 6:[address] [facility] Immature Granulocytes Relative 0.7 % LAB HEMETOLOGY METHOD 09/23/2025 6:[address] [facility] Neutrophils Absolute 8.45(H) 1.50 - 7.00 K/mcL LAB HEMETOLOGY METHOD 09/23/2025 6:[address] [facility] Lymphocytes Absolute 0.47(L) 1.00 - 5.00 K/mcL LAB HEMETOLOGY METHOD 09/23/2025 6:47 AM EST [facility] Monocytes Absolute 0.55 0.20 - 1.00 K/[facility] LAB HEMETOLOGY METHOD 09/23/2025 6:47 AM EST [facility] Eosinophils Absolute 0.04 0.00 - 0.50 K/[facility] LAB HEMETOLOGY METHOD 09/23/2025 6:47 AM EST [facility] Basophils Absolute 0.03 0.00 - 0.20 K/[facility] LAB HEMETOLOGY METHOD 09/23/2025 6:47 AM EST [facility] Immature Granulocytes Absolute 0.07(H) 0.00 - 0.03 K/[facility] LAB HEMETOLOGY METHOD 09/23/2025 6:47 AM EST [facility] Blood Venous blood specimen / Unknown Venipuncture / Unknown 09/23/2025 5:23 AM EST 09/23/2025 6:26 AM EST Mikael Balderas MD LAB BLOOD ORDERABLES Final Resul t [facility] [address] [place] [address], [place] [phone] * (ABNORMAL) Magnesium (09/23/2025 5:23 AM EST) Magnesium 1.8(L) 1.9 - 2.6 mg/dL 09/23/2025 7:13 AM EST [facility] Blood Venous blood specimen / Unknown Venipuncture / Unknown 09/23/2025 5:23 AM EST 09/23/2025 6:26 AM EST us Bob rBown MD LAB BLOOD ORDERABLES Final Resul t [facility] [address] [place] [address], [place] [phone] * (ABNORMAL) Basic metabolic panel (09/23/2025 5:23 AM EST) Sodium 141 133 - 145 mmol/L 09/23/2025 7:[address] [facility] Potassium 4.2 3.5 - 5.5 mmol/L 09/23/2025 7:[address] [facility] Chloride 110 96 - 110 mmol/L 09/23/2025 7:[address] [facility] CO2 22 21 - 32 mmol/L 09/23/2025 7:[address] [facility] Anion Gap 9 3 - 11 09/23/2025 7:[address] [facility] Glucose 126(H) 70 - 100 mg/dL 09/23/2025 7:[address] [facility] BUN 41(H) 5 - 25 mg/dL 09/23/2025 7:[address] [facility] Creatinine 1.00 0.50 - 1.10 mg/dL 09/23/2025 7:[address] [facility] eGFR 57(L) >=60 mL/min/1. 73m2 09/23/2025 7:[address] [facility] Comment:Calculation based on the Chronic Kidney Disease Epidemiology Collaboration (CKD-EPI) equation refit without adjustment for race. BUN/Creatinine Ratio 41.0 09/23/2025 7:[address] [facility] Calcium 8.2(L) 8.5 - 10.5 mg/dL 09/23/2025 7:[address] [facility] Blood Venous blood specimen / Unknown Venipuncture / Unknown 09/23/2025 5:23 AM EST 09/23/2025 6:26 AM EST Bob Brown MD LAB BLOOD ORDERABLES Final Resul t Performing Organization Address City/State/[facility] Co de Phone Number [facility] [address] [place] [address], [place] [phone] * Phosphorus (09/23/2025 5:23 AM EST) Phosphorus 3.2 2.5 - 4.5 mg/dL 09/23/2025 7:16 AM EST [facility] Blood Venous blood specimen / Unknown Venipuncture / Unknown 09/23/2025 5:23 AM EST 09/23/2025 6:26 AM EST Bob Brown MD LAB BLOOD ORDERABLES Final Resul t Performing Organization Address [facility] de Phone Number [facility] [address] [place] [address], * CT Abdomen Pelvis w Contrast (09/22/2025 11:02 AM EST) Anatomical Region Laterality Modality Body Computed Tomogra phy 09/22/2025 11:5 0 AM EST Impressions 09/22/2025 12:12 PM EST Low-attenuation peripheral foci within the spleen 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 Cirrhotic liver morphology with small to moderate diffuse ascites suggestive of portal hypertension. Interval improvement of splenomegaly. -------- FINAL REPORT -------- Dictated By: Keith Santo Dictated Date: 09/22/2025 11:50 ET Assigned Physician: Keith Santo Reviewed and Electronically Signed By: Keith Santo Signed Date: 09/22/2025 12:12 ET Workstation ID: [id number] Transcribed By: Self Edit Transcribed Date: 09/22/2025 11:50 ET Narrative 09/22/2025 12:12 PM EST INDICATION: Aortic vegetation, rule out septic emboli TECHNIQUE: CT scan of the abdomen and pelvis obtained with a total of 90 cc of Isovue-370 administered intravenously without incident. Oral contrast was not administered. Dose reduction technique: ASIR (Adaptive statistical iterative reconstruction) and/or AEC (automated exposure control) Dose: total exam DLP 3666.80 mGY per cm COMPARISON: August 27, 2023 FINDINGS: Partially imaged small right and moderate left pleural effusion with associated atelectasis. Air-fluid level within distended distal esophagus. Bony structures demonstrate osteopenia and degenerative changes with posterior lumbar fusion at the L4-L5. Well-positioned left hip replacement. Cirrhotic liver morphology. Screening, adrenal glands and kidneys are within normal limits. Contracted gallbladder with small calcified gallstones. Spleen demonstrates some small peripheral low-attenuation regions however these are also noted on the prior study and may represent sequelae of prior infarcts. New small acute infarcts structures not excluded. Spleen is also overall decreased in size from the prior study. Unremarkable. Small bowel loops are normal in course and caliber without wall thickening or dilatation. Terminal ileum unremarkable. Normal appendix. Fluid attenuation noted: With patent colostomy left lower quadrant. Small to moderate amount of diffuse simple appearing ascites. No free air. Urinary bladder normal. Uterus unremarkable and unchanged. No adnexal masses. Diffuse calcification noted along the visualized thoracoabdominal aorta and iliac vessels. 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 Procedure Note Keith Santo MD - 09/22/2025 INDICATION: Aortic vegetation, rule out septic emboli TECHNIQUE: CT scan of the abdomen and pelvis obtained with a total of 90cc of Isovue-370 administered intravenously without incident. Oralcontrast was not administered. Dose reduction technique: ASIR (Adaptive statistical iterativereconstruction) and/or AEC (automated exposure control) Dose: total exam DLP 3666.80 mGY per cm COMPARISON: August 27, 2023 FINDINGS: Partially imaged small right and moderate left pleural effusion withassociated atelectasis. Air-fluid level within distended distalesophagus. Bony structures demonstrate osteopenia and degenerative changes withposterior lumbar fusion at the L4-L5. Well-positioned left hipreplacement. Cirrhotic liver morphology. Screening, adrenal glands and kidneys are within normal limits. Contractedgallbladder with small calcified gallstones. Spleen demonstrates some small peripheral low-attenuation regions howeverthese are also noted on the prior study and may represent sequelae ofprior infarcts. New small acute infarcts structures not excluded. Spleenis also overall decreased in size from the prior study. Unremarkable. Small bowel loops are normal in course and caliber withoutwall thickening or dilatation. Terminal ileum unremarkable. Normalappendix. Fluid attenuation noted: With patent colostomy left lowerquadrant. Small to moderate amount of diffuse simple appearing ascites. No freeair. Urinary bladder normal. Uterus unremarkable and unchanged. No adnexal masses. Diffuse calcification noted along the visualized thoracoabdominal aortaand iliac vessels. 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 IMPRESSION: Low-attenuation peripheral foci within the spleen likely representsequelae of prior infarcts with small new acute infarcts not excluded. Cirrhotic liver morphology with small to moderate diffuse ascitessuggestive of portal hypertension. Interval improvement of splenomegaly. -------- FINAL REPORT -------- Dictated By: Keith Santo Dictated Date: 09/22/2025 11:50 ET Assigned Physician: Keith Santo Reviewed and Electronically Signed By: Keith Santo Signed Date: 09/22/2025 12:12 ET Workstation ID: [id number] Transcribed By: Self Edit Transcribed Date: 09/22/2025 11:50 ET Bob Brown MD IM CT PROCEDURES Final Result * CT Head wo and w Contrast (09/22/2025 11:02 AM EST) Anatomical Region Laterality Modality Head and Neck Computed Tomogra phy 09/22/2025 11:2 9 AM EST Impressions 09/22/2025 11:32 AM EST No evidence of acute intracranial process. No evidence of abnormal enhancement. -------- FINAL REPORT -------- Dictated By: Keith Santo Dictated Date: 09/22/2025 11:29 ET Assigned Physician: Keith Santo Reviewed and Electronically Signed By: Keith Santo Signed Date: 09/22/2025 11:32 ET Workstation ID: [id number] Transcribed By: Self Edit Transcribed Date: 09/22/2025 11:29 ET Narrative 09/22/2025 11:32 AM EST INDICATION: Concern for septic emboli with aortic vegetation. Patient cannot tolerate MRI scanning. FINDINGS: Axial images were obtained from the skull base to the vertex with and without contrast enhancement. A total of 90 mL of Isovue-370 administered intravenously without incident. Compared to noncontrast study from August 12, 2015. Dose reduction technique: ASIR (Adaptive statistical iterative reconstruction) Dose: total exam DLP 3666.80 mGY per cm There is no evidence of acute intracranial hemorrhage, midline shift or mass- effect. The ventricles, sulci, sylvian fissures and basilar cisterns are symmetrically enlarged. There are no abnormal intra or extra-axial fluid collections. Mild periventricular white matter changes. No abnormal enhancement noted. Patent dural sinuses. The visualized bony structures and soft tissues are unremarkable. Visualized portions of the paranasal sinuses are clear. Procedure Note Keith Santo MD - 09/22/2025 INDICATION: Concern for septic emboli with aortic vegetation. Patientcannot tolerate MRI scanning. FINDINGS: Axial images were obtained from the skull base to the vertexwith and without contrast enhancement. A total of 90 mL of Isovue-370administered intravenously without incident. Compared to noncontrast study from August 12, 2015. Dose reductiontechnique: ASIR (Adaptive statistical iterative reconstruction) Dose:total exam DLP 3666.80 mGY per cm There is no evidence of acute intracranial hemorrhage, midline shift ormass- effect. The ventricles, sulci, sylvian fissures and basilar cisternsare symmetrically enlarged. There are no abnormal intra or extra-axialfluid collections. Mild periventricular white matter changes. No abnormal enhancement noted. Patent dural sinuses. The visualized bony structures and soft tissues are unremarkable. Visualized portions of the paranasal sinuses are clear. IMPRESSION: No evidence of acute intracranial process. No evidence of abnormalenhancement. -------- FINAL REPORT -------- Dictated By: Keith Santo Dictated Date: 09/22/2025 11:29 ET Assigned Physician: Keith Santo Reviewed and Electronically Signed By: Keith Santo Signed Date: 09/22/2025 11:32 ET Workstation ID: [id number] Transcribed By: Self Edit Transcribed Date: 09/22/2025 11:29 ET us Bob Brown MD IMG CT PROCEDURES Final Result * (ABNORMAL) CBC auto differential (09/22/2025 4:54 AM EST) [facility] WBC 8.1 4.8 - 10.8 K/mcL LAB HEMETOLOGY METHOD 09/22/2025 6:[address] [facility] RBC 2.80(L) 3.80 - 4.80 M/mcL LAB HEMETOLOGY METHOD 09/22/2025 6:[address] [facility] Hemoglobin 8.9(L) 11.5 - 16.0 g/dL LAB HEMETOLOGY METHOD 09/22/2025 6:[address] [facility] Hematocrit 28.5(L) 35.0 - 47.0 % LAB HEMETOLOGY METHOD 09/22/2025 6:[address] [facility] MCV 100.4(H) 79.0 - 98.0 FL LAB HEMETOLOGY METHOD 09/22/2025 6:[address] [facility] MCH 31.3 27.0 - 32.0 pcg LAB HEMETOLOGY METHOD 09/22/2025 6:[address] [facility] MCHC 31.2(L) 32.0 - 37.0 g/dL LAB HEMETOLOGY METHOD 09/22/2025 6:[address] [facility] RDW 18.8(H) 11.0 - 15.0 % LAB HEMETOLOGY METHOD 09/22/2025 6:[address] [facility] Platelets 216 130 - 400 K/mcL LAB HEMETOLOGY METHOD 09/22/2025 6:[address] [facility] MPV 10.2 7.0 - 11.0 FL LAB HEMETOLOGY METHOD 09/22/2025 6:[address] [facility] NRBC 0.0 <1.0 % LAB HEMETOLOGY METHOD 09/22/2025 6:[address] [facility] NRBC Absolute 0.00 <0.10 K/mcL LAB HEMETOLOGY METHOD 09/22/2025 6:[address] [facility] Neutrophils Relative 83.2 % LAB HEMETOLOGY METHOD 09/22/2025 6:[address] [facility] Lymphocytes Relative 5.4 % LAB HEMETOLOGY METHOD 09/22/2025 6:[address] [facility] Monocytes Relative 9.0 % LAB HEMETOLOGY METHOD 09/22/2025 6:[address] [facility] Eosinophils Relative 1.1 % LAB HEMETOLOGY METHOD 09/22/2025 6:[address] [facility] Basophils Relative 0.4 % LAB HEMETOLOGY METHOD 09/22/2025 6:[address] [facility] Immature Granulocytes Relative 0.9 % LAB HEMETOLOGY METHOD 09/22/2025 6:[address] [facility] Neutrophils Absolute 6.76 1.50 - 7.00 K/mcL LAB HEMETOLOGY METHOD 09/22/2025 6:[address] [facility] Lymphocytes Absolute 0.44(L) 1.00 - 5.00 K/mcL LAB HEMETOLOGY METHOD 09/22/2025 6:[address] [facility] Monocytes Absolute 0.73 0.20 - 1.00 K/mcL LAB HEMETOLOGY METHOD 09/22/2025 6:[address] [facility] Eosinophils Absolute 0.09 0.00 - 0.50 K/mcL LAB HEMETOLOGY METHOD 09/22/2025 6:[address] [facility] Basophils Absolute 0.03 0.00 - 0.20 K/mcL LAB HEMETOLOGY METHOD 09/22/2025 6:[address] [facility] Immature Granulocytes Absolute 0.07(H) 0.00 - 0.03 K/mcL LAB HEMETOLOGY METHOD 09/22/2025 6:[address] [facility] Blood Venous blood specimen / Unknown Venipuncture / Unknown 09/22/2025 4:54 AM EST 09/22/2025 6:20 AM EST us Mikael Balderas MD LAB BLOOD ORDERABLES Final Resul t [facility] [address] [place] [address], * (ABNORMAL) Basic metabolic panel (09/22/2025 4:54 AM EST) Sodium 140 133 - 145 mmol/L 09/22/2025 7:[address] [facility] Potassium 4.3 3.5 - 5.5 mmol/L 09/22/2025 7:[address] [facility] Chloride 110 96 - 110 mmol/L 09/22/2025 7:[address] [facility] CO2 22 21 - 32 mmol/L 09/22/2025 7:[address] [facility] Anion Gap 8 3 - 11 09/22/2025 7:[address] [facility] Glucose 117(H) 70 - 100 mg/dL 09/22/2025 7:[address] [facility] BUN 43(H) 5 - 25 mg/dL 09/22/2025 7:[address] [facility] Creatinine 1.06 0.50 - 1.10 mg/dL 09/22/2025 7:[address] [facility] eGFR 53(L) >=60 mL/min/1. 73m2 09/22/2025 7:[address] [facility] Comment:Calculation based on the Chronic Kidney Disease Epidemiology Collaboration (CKD-EPI) equation refit without adjustment for race. BUN/Creatinine Ratio 40.6 09/22/2025 7:34 AM EST [facility] Calcium 7.9(L) 8.5 - 10.5 mg/dL 09/22/2025 7:34 AM EST [facility] Blood Venous blood specimen / Unknown Venipuncture / Unknown 09/22/2025 4:54 AM EST 09/22/2025 6:20 AM EST Mikael Balderas MD LAB BLOOD ORDERABLES Final Resul t Performing Organization Address City/[facility]/ZIP Co de Phone Number [facility] [address] [place] [address], [place] [phone] * (ABNORMAL) Magnesium (09/22/2025 4:54 AM EST) Magnesium 1.7(L) 1.9 - 2.6 mg/dL 09/22/2025 7:32 AM EST [facility] Blood Venous blood specimen / Unknown Venipuncture / Unknown 09/22/2025 4:54 AM EST 09/22/2025 6:20 AM EST us Bob Brown MD LAB BLOOD ORDERABLES Final Resul t Performing Organization Address [facility]/ZIP Co de Phone Number [facility] [address] [place] [address], [place] [phone] * Phosphorus (09/22/2025 4:54 AM EST) Phosphorus 2.8 2.5 - 4.5 mg/dL 09/22/2025 7:36 AM EST [facility] Blood Venous blood specimen / Unknown Venipuncture / Unknown 09/22/2025 4:54 AM EST 09/22/2025 6:20 AM EST us Bob Brown MD LAB BLOOD ORDERABLES Final Resul t Performing Organization Address City/[facility]/ZIP Co de Phone Number [facility] [address] [place] [address], [place] [phone] * ECG 12 lead (09/21/2025 11:16 AM EST) Ventricular Rate ECG 103 BPM GEMUSE Atrial Rate 103 BPM GEMUSE P-R Interval 176 ms GEMUSE QRS Duration 76 ms GEMUSE Q-T Interval 352 ms GEMUSE QTc 461 ms GEMUSE P Wave [place] 53 degrees GEMUSE R [place] 80 degrees GEMUSE T [place] 70 degrees GEMUSE ECG Interpretation Sinus tachycardia Low voltage QRS Cannot rule out Anterior infarct (cited on or before 21-SEP-2025) Abnormal ECG When compared with ECG of 15-SEP-2025 12:41, No significant change was found Confirmed by MAYNOR HATCH ([id number]) on 09/21/2025 7:07:51 PM GEMUSE 09/21/2025 11:1 6 AM EST 09/21/2025 7:07 PM EST us Bob Brown MD ECG ORDERABLES Final Result GEMUSE * HIV 1,2 antibody, p24 antigen with reflex to differentiation (09/21/2025 5:20 AM EST) Pathologist [facility] HIV Combo AB/AG Negative Negative 09/21/2025 10:23 PM EST [facility] Blood Venous blood specimen / Unknown Venipuncture / Unknown 09/21/2025 5:20 AM EST 09/21/2025 6:25 AM EST Narrative [facility] - 09/21/2025 10:23 PM EST This assay is a 4th generation assay allowing for earlier detection of HIV infection by detecting the presence of the HIV-1 p24 antigen as well as the traditional antibodies to HIV type 1 (including group O) and type 2. Use of a 4th generation assay is the current CDC recommendation for HIV screening. us Bob Brown MD LAB BLOOD ORDERABLES Final Resul t [facility] [address] [place] [address], * (ABNORMAL) CBC auto differential (09/21/2025 5:20 AM EST) [facility] WBC 11.7(H) 4.8 - 10.8 K/mcL LAB HEMETOLOGY METHOD 09/21/2025 7:[address] [facility] RBC 3.70(L) 3.80 - 4.80 M/mcL LAB HEMETOLOGY METHOD 09/21/2025 7:[address] [facility] Hemoglobin 11.3(L) 11.5 - 16.0 g/dL LAB HEMETOLOGY METHOD 09/21/2025 7:[address] [facility] Hematocrit 37.1 35.0 - 47.0 % LAB HEMETOLOGY METHOD 09/21/2025 7:[address] [facility] MCV 100.0(H) 79.0 - 98.0 FL LAB HEMETOLOGY METHOD 09/21/2025 7:[address] [facility] MCH 30.5 27.0 - 32.0 pcg LAB HEMETOLOGY METHOD 09/21/2025 7:[address] [facility] MCHC 30.5(L) 32.0 - 37.0 g/dL LAB HEMETOLOGY METHOD 09/21/2025 7:[address] [facility] RDW 18.9(H) 11.0 - 15.0 % LAB HEMETOLOGY METHOD 09/21/2025 7:[address] [facility] Platelets 299 130 - 400 K/mcL LAB HEMETOLOGY METHOD 09/21/2025 7:[address] [facility] MPV 10.2 7.0 - 11.0 FL LAB HEMETOLOGY METHOD 09/21/2025 7:[address] [facility] NRBC 0.0 <1.0 % LAB HEMETOLOGY METHOD 09/21/2025 7:[address] [facility] NRBC Absolute 0.00 <0.10 K/mcL LAB HEMETOLOGY METHOD 09/21/2025 7:[address] [facility] Neutrophils Relative 86.3 % LAB HEMETOLOGY METHOD 09/21/2025 7:[address] [facility] Lymphocytes Relative 5.0 % LAB HEMETOLOGY METHOD 09/21/2025 7:[address] [facility] Monocytes Relative 7.6 % LAB HEMETOLOGY METHOD 09/21/2025 7:[address] [facility] Eosinophils Relative 0.2 % LAB HEMETOLOGY METHOD 09/21/2025 7:[address] [facility] Basophils Relative 0.3 % LAB HEMETOLOGY METHOD 09/21/2025 7:[address] [facility] Immature Granulocytes Relative 0.6 % LAB HEMETOLOGY METHOD 09/21/2025 7:[address] [facility] Neutrophils Absolute 10.13(H) 1.50 - 7.00 K/mcL LAB HEMETOLOGY METHOD 09/21/2025 7:[address] [facility] Lymphocytes Absolute 0.59(L) 1.00 - 5.00 K/mcL LAB HEMETOLOGY METHOD 09/21/2025 7:[address] [facility] Monocytes Absolute 0.89 0.20 - 1.00 K/mcL LAB HEMETOLOGY METHOD 09/21/2025 7:[address] [facility] Eosinophils Absolute 0.02 0.00 - 0.50 K/mcL LAB HEMETOLOGY METHOD 09/21/2025 7:[address] [facility] Basophils Absolute 0.03 0.00 - 0.20 K/mcL LAB HEMETOLOGY METHOD 09/21/2025 7:[address] [facility] Immature Granulocytes Absolute 0.07(H) 0.00 - 0.03 K/mcL LAB HEMETOLOGY METHOD 09/21/2025 7:[address] [facility] Blood Venous blood specimen / Unknown Venipuncture / Unknown 09/21/2025 5:20 AM EST 09/21/2025 6:26 AM EST us Mikael Balderas MD LAB BLOOD ORDERABLES Final Resul t [facility] [address] [place] [address], [place] [phone] * (ABNORMAL) Basic metabolic panel (09/21/2025 5:20 AM EST) Sodium 142 133 - 145 mmol/L 09/21/2025 7:[address] [facility] Potassium 4.4 3.5 - 5.5 mmol/L 09/21/2025 7:[address] [facility] Chloride 111(H) 96 - 110 mmol/L 09/21/2025 7:[address] [facility] CO2 21 21 - 32 mmol/L 09/21/2025 7:[address] [facility] Anion Gap 10 3 - 11 09/21/2025 7:[address] [facility] Glucose 147(H) 70 - 100 mg/dL 09/21/2025 7:[address] [facility] BUN 43(H) 5 - 25 mg/dL 09/21/2025 7:[address] [facility] Creatinine 1.26(H) 0.50 - 1.10 mg/dL 09/21/2025 7:[address] [facility] eGFR 43(L) >=60 mL/min/1. 73m2 09/21/2025 7:[address] [facility] Comment:Calculation based on the Chronic Kidney Disease Epidemiology Collaboration (CKD-EPI) equation refit without adjustment for race. BUN/Creatinine Ratio 34.1 09/21/2025 7:21 AM EST [facility] Calcium 8.0(L) 8.5 - 10.5 mg/dL 09/21/2025 7:21 AM EST [facility] Blood Venous blood specimen / Unknown Venipuncture / Unknown 09/21/2025 5:20 AM EST 09/21/2025 6:25 AM EST us Mikael Balderas MD LAB BLOOD ORDERABLES Final Resul t [facility] [address] [place] [address], * EGD Anesthesia - MAC; [facility] ENDOSCOPY (09/20/2025 8:07 AM EST) Anatomical Region Laterality Modality Endoscopy 09/20/2025 7:54 AM EST Impressions 09/20/2025 8:14 AM EST - Dilation in the entire esophagus. - Abnormal esophageal motility, consistent with aperistalsis. - Adherent debris mucosa in the esophagus. - Small hiatal hernia. - No gross lesions in the entire stomach. - Normal examined duodenum. - No specimens collected. Recommendation: - Await pathology results. - Findings consistent with poor/absent motility of the esophagus. Would recommend always staying upright as much as posible- including sleeping. Small meals with frequent liquids. Narrative 09/20/2025 8:14 AM EST [facility] GI Patient Name: Iwona Romero Procedure Date: 09/20/2025 7:54 AM Date of : 1945 Age: 80 Gender: Female Note Status: Finalized Attending MD: Caitlin Birmingham MD, Procedure Date No Time: 09/20/2025 Procedure: Upper GI endoscopy Indications: Abnormal CT of the GI tract, Patient with dilated debris filled esophagus on CT scan. Patient has a histry of CREST syndrome and recurrent aspiration pneumonia. Providers: Caitlin Birmingham MD Referring MD: Caitlin Birmingham MD Medicines: Propofol per Anesthesia Complications: No immediate complications. Estimated Blood Loss: Estimated blood loss: none. Procedure: Pre-Anesthesia Assessment: - ASA Grade Assessment: IV - A patient with severe systemic disease that is a constant threat to life. After obtaining informed consent, the endoscope was passed under direct vision. Throughout the procedure, the patient's blood pressure, pulse, and oxygen saturations were monitored continuously.The Endoscope was introduced through the mouth, and advanced to the second part of duodenum. The upper GI endoscopy was accomplished without difficulty. The patient tolerated the procedure well. Findings: The lumen of the esophagus was moderately dilated. Abnormal motility was noted in the esophagus. The cricopharyngeus was normal. There is a decrease in motility of the esophageal body. The distal esophagus/lower esophageal sphincter is open. Diffuse mucosal changes characterized by adherent debris were found in the mid esophagus and in the distal esophagus. Biopsies were taken with a cold forceps for histology. A small hiatal hernia was present. No gross lesions were noted in the entire examined stomach. The examined duodenum was normal. 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 All rights reserved. The codes documented in this report are preliminary and upon public speaking coach review may be revised to meet current compliance requirements. Caitlin Birmingham MD 09/20/2025 8:14:33 AM This report has been signed electronically.Caitlin Birmingham MD Number of Addenda: 0 Note Initiated On: 09/20/2025 7:54 AM Scope In: Scope Out: Endoscopy Department at [facility] - [address] [place] [id number] Procedure Note Caitlin Birmingham MD - 09/20/2025 [facility] GI Patient Name: Iwona Romero Procedure Date: 09/20/2025 7:54 AM Date of : 1945 Age: 80 Gender: Female Note Status: Finalized Attending MD: Caitlin Birmingham MD, Procedure Date No Time: 09/20/2025 Procedure: Upper GI endoscopy Indications: Abnormal CT of the GI tract, Patient with dilated debris filled esophagus on CT scan. Patient has a histry of CREST syndrome and recurrent aspiration pneumonia. Providers: Caitlin Birmingham MD Referring MD: Caitlin Birmingham MD Medicines: Propofol per Anesthesia Complications: No immediate complications. Estimated Blood Loss: Estimated blood loss: none. Procedure: Pre-Anesthesia Assessment: - ASA Grade Assessment: IV - A patient with severe systemic disease that is a constant threat tolife. After obtaining informed consent, the endoscope was passed under direct vision. Throughout theprocedure, the patient's blood pressure, pulse, and oxygen saturations were monitored continuously.TheEndoscope was introduced through the mouth, and advanced tothe second part of duodenum. The upper GI endoscopy was accomplished without difficulty. The patienttolerated the procedure well. Findings: The lumen of the esophagus was moderatelydilated. Abnormal motility was noted in the esophagus. The cricopharyngeus was normal. There is a decrease in motility of the esophageal body. The distal esophagus/lower esophageal sphincter is open. Diffuse mucosal changes characterized by adherent debris were found in the mid esophagus and in the distal esophagus. Biopsies were taken with a cold forceps for histology. A small hiatal hernia was present. No gross lesions were noted in the entire examined stomach. The examined duodenum was normal. 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 All rights reserved. The codes documented in this report are preliminary and upon public speaking coach reviewmay be revised to meet current compliance requirements. Caitlin Birmingham MD 09/20/2025 8:14:33 AM This report has been signed electronically.Caitlin Birmingham MD Number of Addenda: 0 Note Initiated On: 09/20/2025 7:54 AM Scope In: Scope Out: Endoscopy Department at [facility] - [address] [place] [address], [place] [id number] IMPRESSION: - Dilation in the entire esophagus. - Abnormal esophageal motility, consistent with aperistalsis. - Adherent debris mucosa in the esophagus. - Small hiatal hernia. - No gross lesions in the entire stomach. - Normal examined duodenum. - No specimens collected. Recommendation: - Await pathology results. - Findings consistent with poor/absent motility ofthe esophagus. Would recommend always staying uprightas much as posible- including sleeping. Small mealswith frequent liquids. Caitlin Birmingham MD GI~PROCEDURE ORDERABLES Final Result * Tissue exam (09/20/2025 8:03 AM EST) Final Diagnosis A. Esophagus, biopsies: - Yumiko esophagitis. 09/21/2025 9:21 AM EST [facility] at 0921 EST Gross Description A. Esophagus, biopsies: Labeled esophagus biopsies . Received in formalin, are six irregular soft to rubbery, white-pink to red, tissue fragments, approximately ranging from 0.2 cm to 0.5 cm in greatest diameters, admixed with fecal/food debris, which are wrapped in paper and submitted in toto in one cassette, six pieces, multiple levels. Please note: Small tissue fragments may not survive processing. hs/DG 09/21/2025 9:21 AM EST [facility] Disclaimer Unless otherwise specified, all tissue is 10% NB formalin fixed and paraffin embedded. 09/21/2025 9:[address] [facility] Tissue Esophageal structure / Unknown 09/20/2025 8:03 AM EST 09/20/2025 10:24 AM EST Caitlin Birmingham MD LAB PATHOLOGY ORDERABLES Final Result [facility] [address] [place] [address], * (ABNORMAL) CBC auto differential (09/20/2025 4:50 AM EST) [facility] WBC 5.4 4.8 - 10.8 K/mcL LAB HEMETOLOGY METHOD 09/20/2025 6:[address] [facility] RBC 3.00(L) 3.80 - 4.80 M/mcL LAB HEMETOLOGY METHOD 09/20/2025 6:[address] [facility] Hemoglobin 9.3(L) 11.5 - 16.0 g/dL LAB HEMETOLOGY METHOD 09/20/2025 6:[address] [facility] Hematocrit 31.1(L) 35.0 - 47.0 % LAB HEMETOLOGY METHOD 09/20/2025 6:[address] [facility] MCV 103.0(H) 79.0 - 98.0 FL LAB HEMETOLOGY METHOD 09/20/2025 6:[address] [facility] MCH 30.8 27.0 - 32.0 pcg LAB HEMETOLOGY METHOD 09/20/2025 6:[address] [facility] MCHC 29.9(L) 32.0 - 37.0 g/dL LAB HEMETOLOGY METHOD 09/20/2025 6:[address] [facility] RDW 19.1(H) 11.0 - 15.0 % LAB HEMETOLOGY METHOD 09/20/2025 6:[address] [facility] Platelets 174 130 - 400 K/mcL LAB HEMETOLOGY METHOD 09/20/2025 6:[address] [facility] MPV 10.0 7.0 - 11.0 FL LAB HEMETOLOGY METHOD 09/20/2025 6:[address] [facility] NRBC 0.0 <1.0 % LAB HEMETOLOGY METHOD 09/20/2025 6:[address] [facility] NRBC Absolute 0.00 <0.10 K/mcL LAB HEMETOLOGY METHOD 09/20/2025 6:[address] [facility] Neutrophils Relative 76.9 % LAB HEMETOLOGY METHOD 09/20/2025 6:[address] [facility] Lymphocytes Relative 6.0 % LAB HEMETOLOGY METHOD 09/20/2025 6:[address] [facility] Monocytes Relative 7.3 % LAB HEMETOLOGY METHOD 09/20/2025 6:[address] [facility] Eosinophils Relative 8.8 % LAB HEMETOLOGY METHOD 09/20/2025 6:[address] [facility] Basophils Relative 0.6 % LAB HEMETOLOGY METHOD 09/20/2025 6:[address] [facility] Immature Granulocytes Relative 0.4 % LAB HEMETOLOGY METHOD 09/20/2025 6:[address] [facility] Neutrophils Absolute 4.12 1.50 - 7.00 K/mcL LAB HEMETOLOGY METHOD 09/20/2025 6:[address] [facility] Lymphocytes Absolute 0.32(L) 1.00 - 5.00 K/mcL LAB HEMETOLOGY METHOD 09/20/2025 6:[address] [facility] Monocytes Absolute 0.39 0.20 - 1.00 K/mcL LAB HEMETOLOGY METHOD 09/20/2025 6:[address] [facility] Eosinophils Absolute 0.47 0.00 - 0.50 K/mcL LAB HEMETOLOGY METHOD 09/20/2025 6:[address] [facility] Basophils Absolute 0.03 0.00 - 0.20 K/mcL LAB HEMETOLOGY METHOD 09/20/2025 6:[address] [facility] Immature Granulocytes Absolute 0.02 0.00 - 0.03 K/mcL LAB HEMETOLOGY METHOD 09/20/2025 6:[address] [facility] Blood Venous blood specimen / Unknown Venipuncture / Unknown 09/20/2025 4:50 AM EST 09/20/2025 6:23 AM EST Mikael Balderas MD LAB BLOOD ORDERABLES Final Resul t [facility] [address] [place] [address], [place] [phone] * (ABNORMAL) Basic metabolic panel (09/20/2025 4:50 AM EST) Sodium 141 133 - 145 mmol/L 09/20/2025 7:[address] [facility] Potassium 4.3 3.5 - 5.5 mmol/L 09/20/2025 7:[address] [facility] Chloride 111(H) 96 - 110 mmol/L 09/20/2025 7:[address] [facility] CO2 22 21 - 32 mmol/L 09/20/2025 7:[address] [facility] Anion Gap 8 3 - 11 09/20/2025 7:[address] [facility] Glucose 136(H) 70 - 100 mg/dL 09/20/2025 7:[address] [facility] BUN 41(H) 5 - 25 mg/dL 09/20/2025 7:[address] [facility] Creatinine 1.56(H) 0.50 - 1.10 mg/dL 09/20/2025 7:[address] [facility] eGFR 33(L) >=60 mL/min/1. 73m2 09/20/2025 7:[address] [facility] Comment:Calculation based on the Chronic Kidney Disease Epidemiology Collaboration (CKD-EPI) equation refit without adjustment for race. BUN/Creatinine Ratio 26.3 09/20/2025 7:11 AM EST [facility] Calcium 7.2(L) 8.5 - 10.5 mg/dL 09/20/2025 7:11 AM EST [facility] Blood Venous blood specimen / Unknown Venipuncture / Unknown 09/20/2025 4:50 AM EST 09/20/2025 6:23 AM EST us Mikael Balderas MD LAB BLOOD ORDERABLES Final Resul t Performing Organization Address City/[facility]/ZIP Co de Phone Number [facility] [address] [place] [address], [place] [phone] * C4 complement (09/20/2025 4:50 AM EST) C4 Complement 21 16 - 47 mg/dL 09/20/2025 7:14 AM EST [facility] Blood Venous blood specimen / Unknown Venipuncture / Unknown 09/20/2025 4:50 AM EST 09/20/2025 6:23 AM EST us Anita Fletcher MD LAB BLOOD ORDERABLES Final Re sult Performing Organization Address [facility]/ZIP Co de Phone Number [facility] [address] [place] [address], [place] [phone] * C3 complement (09/20/2025 4:50 AM EST) C3 Complement 101 88 - 201 mg/dL 09/20/2025 7:14 AM EST [facility] Blood Venous blood specimen / Unknown Venipuncture / Unknown 09/20/2025 4:50 AM EST 09/20/2025 6:23 AM EST us Anita Fletcher MD LAB BLOOD ORDERABLES Final Re sult [facility] [address] [place] [address], [place] [phone] * Rheumatoid factor (09/20/2025 4:50 AM EST) Pathologist [facility] Rheumatoid Factor 7.5 <15.0 I Unit/mL 09/20/2025 7:13 AM EST [facility] Blood Venous blood specimen / Unknown Venipuncture / Unknown 09/20/2025 4:50 AM EST 09/20/2025 6:23 AM EST us Anita Fletcher MD LAB BLOOD ORDERABLES Final Re sult [facility] [address] [place] [address], [place] [phone] * (ABNORMAL) NICK IFA with titer and pattern (09/20/2025 4:50 AM EST) Pathologist [facility] NICK Positive (A) Negative 09/20/2025 12:[address] [facility] Comment:NICK performed by ind irect immunofluorescence (IFA) using HEp-2 substrate. 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 Titer >=1:2560 (A) <1:160 09/20/2025 12:[address] [facility] Blood Venous blood specimen / Unknown Venipuncture / Unknown 09/20/2025 4:50 AM EST 09/20/2025 6:23 AM EST us Anita Fletcher MD LAB BLOOD ORDERABLES Final Re sult [facility] [address] [place] [address], [place] [phone] * (ABNORMAL) Urinalysis with reflex microscopic (09/19/2025 4:50 PM EST) Specific [place] Urine 1.034(H) 1.003 - 1.030 LAB URINALYSIS - AUTOMATED METHOD 09/19/2025 8:[address] [facility] pH, Urine 5.0 5.0 - 8.0 pH LAB URINALYSIS - AUTOMATED METHOD 09/19/2025 8:[address] [facility] Leukocytes, Urine Small(A) Negative LAB URINALYSIS - AUTOMATED METHOD 09/19/2025 8:[address] [facility] Nitrite, Urine Negative Negative LAB URINALYSIS - AUTOMATED METHOD 09/19/2025 8:[address] [facility] Protein, Urine 30(A) <=Trace mg/dL LAB URINALYSIS - AUTOMATED METHOD 09/19/2025 8:[address] [facility] Glucose, Urine Negative Negative mg/dL LAB URINALYSIS - AUTOMATED METHOD 09/19/2025 8:[address] [facility] Ketones, Urine Trace(A) Negative mg/dL LAB URINALYSIS - AUTOMATED METHOD 09/19/2025 8:[address] [facility] Urobilinogen , Urine 1.0 0.2 - 1.0 mg/dL LAB URINALYSIS - AUTOMATED METHOD 09/19/2025 8:[address] [facility] Bilirubin, Urine Negative Negative LAB URINALYSIS - AUTOMATED METHOD 09/19/2025 8:[address] [facility] Blood, Urine Negative Negative LAB URINALYSIS - AUTOMATED METHOD 09/19/2025 8:[address] [facility] RBC, Urine 4 0 - 4 /HPF 09/19/2025 8:[address] [facility] WBC, Urine 15(H) 0 - 4 /HPF 09/19/2025 8:[address] [facility] Squamous Epithelial, Urine >100(H) 0 - 60 /LPF 09/19/2025 8:15 PM EST [facility] Non-Squamous Epithelial, Urine Rare Transitional epithelial cells. /LPF 09/19/2025 8:15 PM EST [facility] Bacteria, Urine Few(A) Negative /HPF 09/19/2025 8:[address] [facility] Hyaline Casts, Urine 0 0 - 3 /LPF 09/19/2025 8:15 PM EST [facility] Urine Urine specimen obtained by clean catch procedure / Unknown Non-blood Collection / Unknown 09/19/2025 4:50 PM EST 09/19/2025 7:51 PM EST us Anita Fletcher MD LAB URINE ORDERABLES Final Re sult Performing Organization Address City/[facility]/ZIP Co de Phone Number [facility] [address] [place] [address], [place] [phone] * Creatinine, urine, random (09/19/2025 4:50 PM EST) Creatinine, Urine 100.0 mg/dL 09/19/2025 8:17 PM EST [facility] Urine Urine specimen obtained by clean catch procedure / Unknown Non-blood Collection / Unknown 09/19/2025 4:50 PM EST 09/19/2025 7:51 PM EST us Anita Fletcher MD LAB URINE ORDERABLES Final Re sult [facility] [address] [place] [address], [place] [phone] * Sodium, urine, random (09/19/2025 4:50 PM EST) Sodium, Ur 11 mmol/L 09/19/2025 8:09 PM EST [facility] Urine Urine specimen obtained by clean catch procedure / Unknown Non-blood Collection / Unknown 09/19/2025 4:50 PM EST 09/19/2025 7:51 PM EST us Anita Fletcher MD LAB URINE ORDERABLES Final Re sult Performing Organization Address [facility]/ZIP Co de Phone Number [facility] [address] [place] [address], [place] [phone] * (ABNORMAL) Protein and creatinine with ratio, urine (09/19/2025 4:50 PM EST) Protein, Urine 56 mg/dL 09/19/2025 8:17 PM EST [facility] Prot/Creat, Ur 0.56(H) <=0.20 mg/mg creat 09/19/2025 8:17 PM EST [facility] Creatinine, Urine 100.0 mg/dL 09/19/2025 8:17 PM EST [facility] Urine Urine specimen obtained by clean catch procedure / Unknown Non-blood Collection / Unknown 09/19/2025 4:50 PM EST 09/19/2025 7:51 PM EST us Anita Fletcher MD LAB URINE ORDERABLES Final Re sult Performing Organization Address [facility] de Phone Number [facility] [address] [place] [address], [place] [phone] * (ABNORMAL) CBC auto differential (09/19/2025 5:51 AM EST) WBC 4.8 4.8 - 10.8 K/mcL LAB HEMETOLOGY METHOD 09/19/2025 6:30 AM EST [facility] RBC 2.80(L) 3.80 - 4.80 M/mcL LAB HEMETOLOGY METHOD 09/19/2025 6:[address] [facility] Hemoglobin 8.4(L) 11.5 - 16.0 g/dL LAB HEMETOLOGY METHOD 09/19/2025 6:[address] [facility] Hematocrit 27.9(L) 35.0 - 47.0 % LAB HEMETOLOGY METHOD 09/19/2025 6:[address] [facility] MCV 101.5(H) 79.0 - 98.0 FL LAB HEMETOLOGY METHOD 09/19/2025 6:[address] [facility] MCH 30.5 27.0 - 32.0 pcg LAB HEMETOLOGY METHOD 09/19/2025 6:[address] [facility] MCHC 30.1(L) 32.0 - 37.0 g/dL LAB HEMETOLOGY METHOD 09/19/2025 6:[address] [facility] RDW 19.4(H) 11.0 - 15.0 % LAB HEMETOLOGY METHOD 09/19/2025 6:[address] [facility] Platelets 155 130 - 400 K/mcL LAB HEMETOLOGY METHOD 09/19/2025 6:[address] [facility] MPV 10.0 7.0 - 11.0 FL LAB HEMETOLOGY METHOD 09/19/2025 6:[address] [facility] NRBC 0.0 <1.0 % LAB HEMETOLOGY METHOD 09/19/2025 6:[address] [facility] NRBC Absolute 0.00 <0.10 K/mcL LAB HEMETOLOGY METHOD 09/19/2025 6:[address] [facility] Neutrophils Relative 75.5 % LAB HEMETOLOGY METHOD 09/19/2025 6:[address] [facility] Lymphocytes Relative 6.8 % LAB HEMETOLOGY METHOD 09/19/2025 6:[address] [facility] Monocytes Relative 9.1 % LAB HEMETOLOGY METHOD 09/19/2025 6:[address] [facility] Eosinophils Relative 7.6 % LAB HEMETOLOGY METHOD 09/19/2025 6:30 AM EST [facility] Basophils Relative 0.4 % LAB HEMETOLOGY METHOD 09/19/2025 6:[address] [facility] Immature Granulocytes Relative 0.6 % LAB HEMETOLOGY METHOD 09/19/2025 6:[address] [facility] Neutrophils Absolute 3.65 1.50 - 7.00 K/mcL LAB HEMETOLOGY METHOD 09/19/2025 6:30 AM EST [facility] Lymphocytes Absolute 0.33(L) 1.00 - 5.00 K/mcL LAB HEMETOLOGY METHOD 09/19/2025 6:[address] [facility] Monocytes Absolute 0.44 0.20 - 1.00 K/mcL LAB HEMETOLOGY METHOD 09/19/2025 6:[address] [facility] Eosinophils Absolute 0.37 0.00 - 0.50 K/mcL LAB HEMETOLOGY METHOD 09/19/2025 6:30 AM EST [facility] Basophils Absolute 0.02 0.00 - 0.20 K/mcL LAB HEMETOLOGY METHOD 09/19/2025 6:30 AM EST [facility] Immature Granulocytes Absolute 0.03 0.00 - 0.03 K/mcL LAB HEMETOLOGY METHOD 09/19/2025 6:[address] [facility] Blood Venous blood specimen / Unknown Venipuncture / Unknown 09/19/2025 5:51 AM EST 09/19/2025 6:20 AM EST us Mikael Balderas MD LAB BLOOD ORDERABLES Final Resul t [facility] [address] [place] [address], * (ABNORMAL) Basic metabolic panel (09/19/2025 5:51 AM EST) Sodium 142 133 - 145 mmol/L 09/19/2025 7:[address] [facility] Potassium 4.1 3.5 - 5.5 mmol/L 09/19/2025 7:[address] [facility] Chloride 110 96 - 110 mmol/L 09/19/2025 7:[address] [facility] CO2 23 21 - 32 mmol/L 09/19/2025 7:[address] [facility] Anion Gap 9 3 - 11 09/19/2025 7:[address] [facility] Glucose 101(H) 70 - 100 mg/dL 09/19/2025 7:[address] [facility] BUN 41(H) 5 - 25 mg/dL 09/19/2025 7:[address] [facility] Creatinine 1.69(H) 0.50 - 1.10 mg/dL 09/19/2025 7:[address] [facility] eGFR 30(L) >=60 mL/min/1. 73m2 09/19/2025 7:[address] [facility] Comment:Calculation based on the Chronic Kidney Disease Epidemiology Collaboration (CKD-EPI) equation refit without adjustment for race. BUN/Creatinine Ratio 24.3 09/19/2025 7:[address] [facility] Calcium 7.1(L) 8.5 - 10.5 mg/dL 09/19/2025 7:[address] [facility] Blood Venous blood specimen / Unknown Venipuncture / Unknown 09/19/2025 5:51 AM EST 09/19/2025 6:21 AM EST us Mikael Balderas MD LAB BLOOD ORDERABLES Final Resul t [facility] [address] [place] [address], [place] [phone] * (ABNORMAL) CBC auto differential (09/18/2025 5:56 AM EST) [facility] WBC 6.0 4.8 - 10.8 K/mcL LAB HEMETOLOGY METHOD 09/18/2025 7:[address] [facility] RBC 2.90(L) 3.80 - 4.80 M/mcL LAB HEMETOLOGY METHOD 09/18/2025 7:[address] [facility] Hemoglobin 9.0(L) 11.5 - 16.0 g/dL LAB HEMETOLOGY METHOD 09/18/2025 7:[address] [facility] Hematocrit 29.1(L) 35.0 - 47.0 % LAB HEMETOLOGY METHOD 09/18/2025 7:[address] [facility] MCV 100.0(H) 79.0 - 98.0 FL LAB HEMETOLOGY METHOD 09/18/2025 7:[address] [facility] MCH 30.9 27.0 - 32.0 pcg LAB HEMETOLOGY METHOD 09/18/2025 7:[address] [facility] MCHC 30.9(L) 32.0 - 37.0 g/dL LAB HEMETOLOGY METHOD 09/18/2025 7:[address] [facility] RDW 19.6(H) 11.0 - 15.0 % LAB HEMETOLOGY METHOD 09/18/2025 7:[address] [facility] Platelets 199 130 - 400 K/mcL LAB HEMETOLOGY METHOD 09/18/2025 7:[address] [facility] MPV 9.8 7.0 - 11.0 FL LAB HEMETOLOGY METHOD 09/18/2025 7:[address] [facility] NRBC 0.0 <1.0 % LAB HEMETOLOGY METHOD 09/18/2025 7:[address] [facility] NRBC Absolute 0.00 <0.10 K/mcL LAB HEMETOLOGY METHOD 09/18/2025 7:[address] [facility] Neutrophils Relative 81.1 % LAB HEMETOLOGY METHOD 09/18/2025 7:[address] [facility] Lymphocytes Relative 6.1 % LAB HEMETOLOGY METHOD 09/18/2025 7:[address] [facility] Monocytes Relative 7.9 % LAB HEMETOLOGY METHOD 09/18/2025 7:[address] [facility] Eosinophils Relative 3.9 % LAB HEMETOLOGY METHOD 09/18/2025 7:[address] [facility] Basophils Relative 0.5 % LAB HEMETOLOGY METHOD 09/18/2025 7:[address] [facility] Immature Granulocytes Relative 0.5 % LAB HEMETOLOGY METHOD 09/18/2025 7:[address] [facility] Neutrophils Absolute 4.83 1.50 - 7.00 K/mcL LAB HEMETOLOGY METHOD 09/18/2025 7:[address] [facility] Lymphocytes Absolute 0.36(L) 1.00 - 5.00 K/mcL LAB HEMETOLOGY METHOD 09/18/2025 7:[address] [facility] Monocytes Absolute 0.47 0.20 - 1.00 K/mcL LAB HEMETOLOGY METHOD 09/18/2025 7:[address] [facility] Eosinophils Absolute 0.23 0.00 - 0.50 K/mcL LAB HEMETOLOGY METHOD 09/18/2025 7:[address] [facility] Basophils Absolute 0.03 0.00 - 0.20 K/mcL LAB HEMETOLOGY METHOD 09/18/2025 7:[address] [facility] Immature Granulocytes Absolute 0.03 0.00 - 0.03 K/mcL LAB HEMETOLOGY METHOD 09/18/2025 7:[address] [facility] Blood Venous blood specimen / Unknown Venipuncture / Unknown 09/18/2025 5:56 AM EST 09/18/2025 6:57 AM EST us Mikael Balderas MD LAB BLOOD ORDERABLES Final Resul t [facility] [address] [place] [address], * (ABNORMAL) Basic metabolic panel (09/18/2025 5:56 AM EST) Sodium 142 133 - 145 mmol/L 09/18/2025 8:[address] [facility] Potassium 3.3(L) 3.5 - 5.5 mmol/L 09/18/2025 8:[address] [facility] Chloride 109 96 - 110 mmol/L 09/18/2025 8:[address] [facility] CO2 24 21 - 32 mmol/L 09/18/2025 8:[address] [facility] Anion Gap 9 3 - 11 09/18/2025 8:[address] [facility] Glucose 91 70 - 100 mg/dL 09/18/2025 8:[address] [facility] BUN 38(H) 5 - 25 mg/dL 09/18/2025 8:[address] [facility] Creatinine 1.38(H) 0.50 - 1.10 mg/dL 09/18/2025 8:[address] [facility] eGFR 39(L) >=60 mL/min/1. 73m2 09/18/2025 8:[address] [facility] Comment:Calculation based on the Chronic Kidney Disease Epidemiology Collaboration (CKD-EPI) equation refit without adjustment for race. BUN/Creatinine Ratio 27.5 09/18/2025 8:06 AM EST [facility] Calcium 7.5(L) 8.5 - 10.5 mg/dL 09/18/2025 8:06 AM EST [facility] Blood Venous blood specimen / Unknown Venipuncture / Unknown 09/18/2025 5:56 AM EST 09/18/2025 6:55 AM EST us Mikael Balderas MD LAB BLOOD ORDERABLES Final Resul t [facility] [address] [place] [address], [place] [phone] * (ABNORMAL) TRANSTHORACIC ECHOCARDIOGRAM (TTE) COMPLETE W/ CONTRAST (09/17/2025 11:12 AM EST) Ascending Aorta 3.2 cm CV PACS Ascending Aorta Index 2.18 cm/m2 CV PACS Left Atrium Minor [place] 4.4 cm CV PACS Left Atrium Major [place] 5.3 cm CV PACS LA Area Sys (A2C) 16 cm2 CV PACS LA Area Sys (A4C) 23 cm2 CV PACS LA Volume (BP) 65 mL CV PACS RA Area 17.1 cm2 CV PACS RA 2D Volume 43 mL CV PACS AV Mean Gradient 19 mmHg CV PACS Ao VTI 60.9 cm CV PACS AV Peak Roberto 3.7 m/s CV PACS AV Peak Gradient 56 mmHg CV PACS AV Area Continuity Equation 1.4 cm2 CV PACS AV Area Peak Velocity 1.2 cm2 CV PACS Aortic Sinus Valsalva 3.4 cm CV PACS IVSD 1.5(A) 0.6 - 0.9 cm CV PACS LVIDD 2.3(A) 3.8 - 5.2 cm CV PACS LVIDS 1.4(A) 2.2 - 3.5 cm CV PACS LVOT Diameter 1.6 cm CV PACS LVOT Mean Roberto 1.5 m/s CV PACS LVOT Mean Grad 10 mmHg CV PACS LVOT Peak VTI 41.6 cm CV PACS LVOT Peak Roberto 2.1 m/s CV PACS LVOT Peak Gradient 18 mmHg CV PACS LVPWD 1.5(A) 0.6 - 0.9 cm CV PACS MV E' Tissue Velocity Lateral 13 cm/s CV PACS MV E' Tissue Velocity Septal 11 cm/s CV PACS LVOT Area 2.0 cm2 CV PACS LVOT Stroke Volume 84 mL CV PACS MV Deceleration [place] 8.9 m/s2 CV PACS E Wave Deceleration Time 144 119 - 242 ms CV PACS MV PHT 42 ms CV PACS MV Peak A Roberto 2.43 m/s CV PACS MV Peak E Roberto 1.28 m/s CV PACS MV Mean Gradient 11 mmHg CV PACS MV VTI 46.0 cm CV PACS Mitral Valve Max Velocity 2.8 m/s CV PACS MV Peak Gradient 31 mmHg CV PACS MV Area PHT 5.2 cm2 CV PACS MV Area Continuity Equation 1.8 cm2 CV PACS PV Acceleration Time 106 ms CV PACS PV Acceleration Time 95 ms CV PACS PV Acceleration Time 101 ms CV PACS RV Diastolic Basal Dimension 2.8 2.5 - 4.1 cm CV PACS RV S' 31 cm/s CV PACS TAPSE 20 mm CV PACS TR Peak Velocity 2.17 m/s CV PACS TR Peak Gradient 19 mmHg CV PACS E/E' Ratio Septal 12 CV PACS E/E' Ratio Averaged 11 CV PACS LVOT Stroke Index 57 mL/m2 CV PACS Relative Wall Thickness ratio 1.30 CV PACS LVOT:AV VTI Index 0.68 CV PACS FS 39 % CV PACS LV Mass 2D 114 g CV PACS MV VTI:LVOT VTI ratio 1.1 CV PACS LVOT flow 301 mL/s CV PACS RA 2D Volume Index 29 mL/m2 CV PACS ELLEN Index (VTI) 0.93 cm2/m2 CV PACS ELLEN Index (Pk Roberto) 0.82 cm2/m2 CV PACS LVIDD Index 1.56 cm/m2 CV PACS LVIDS Index 0.95 cm/m2 CV PACS AV Velocity Ratio 0.57 CV PACS E/A Ratio 0.5 CV PACS E/E' Ratio Lateral 10 CV PACS LA Volume Index (BP) 44 mL/m2 CV PACS LV Mass Index 2D 78 g/m2 CV PACS BSA 1.45 m2 CV PACS GLS -22.3 % CV PACS Anatomical Region Laterality Modality Ultrasound Narrative 09/18/2025 9:29 AM EST Technically difficult study. Left Ventricle: There is severe concentric hypertrophy. Systolic function is hyperdynamic with an ejection fraction over 70%. LV global longitudal strain is normal. Global longitudinal strain is -22.3%. There are no regional LV wall motion abnormalities. Left ventricle: There is moderate mid-cavity gradient of 52 mmHg at rest with no significant change with Valsalva. Aortic Valve: There is moderate stenosis. Aortic valve: In some of the parasternal views, there is evidence of an echodensity associated to the LVOT side of the aortic valve. This could represent a calcification. However, a vegetation cannot be completely ruled out with the available images. Consider further evaluation with blood cultures and/or a SERGIO if clinically indicated. Mitral Valve: There is severe stenosis, with a mean gradient of 11 mmHg. Pericardium: There is a small circumferential pericardial effusion. There is no echocardiographic evidence of tamponade. There is a left pleural effusion. Left Ventricle Left ventricle cavity size is normal. There is severe concentric hypertrophy. Systolic function is hyperdynamic with an ejection fraction over 70%. LV global longitudal strain is normal. Global longitudinal strain is -22.3%. There are no regional LV wall motion abnormalities. Indeterminate diastolic function. There is moderate mid-cavity gradient of 52 mmHg at rest with no significant change with Valsalva. Right Ventricle Right ventricle cavity appears normal. Systolic function is normal. Left Atrium Left atrium cavity is moderately dilated. Right Atrium Right atrium cavity is mildly dilated. There is a prominent Eustachian valve. IVC/SVC Inferior vena cava structure is normal. RA pressures is estimated to be 3 mmHg (IVC diameter <21 mm and decreases >50% during inspiration). Mitral Valve The leaflets are moderately thickened. There is moderate annular calcification. There is trace to mild regurgitation. There is severe stenosis, with a mean gradient of 11 mmHg. Tricuspid Valve Tricuspid valve structure is normal. There is trace regurgitation. There is no evidence of tricuspid valve stenosis. Aortic Valve The aortic valve is trileaflet. The leaflets are mildly thickened. There is trace regurgitation. There is moderate stenosis. In some of the parasternal views, there is evidence of an echodensity associated to the LVOT side of the aortic valve. This could represent a calcification. However, a vegetation cannot be completely ruled out with the available images. Pulmonic Valve Visualized portions of the pulmonic valve appear normal. There is trace pulmonic valve regurgitation. There is no evidence of pulmonic valve stenosis. Ascending Aorta The aorta appears normal in size. Pericardium Pericardium appears normal. There is a small circumferential pericardial effusion. There is no echocardiographic evidence of tamponade. There is a left pleural effusion. Study Details Overall the study quality was technically difficult. Additional technique includes myocardial strain. Definity contrast was given to enhance imaging. Study was difficult due to: poor endocardial visualization. Wall Scoring Baseline Score Index: 1.00 The left ventricular wall motion is globally hyperkinetic. us Kali RENE CV ECHO PROCEDURES Final Result * (ABNORMAL) CBC auto differential (09/17/2025 5:45 AM EST) WBC 7.2 4.8 - 10.8 K/mcL LAB HEMETOLOGY METHOD 09/17/2025 6:[address] [facility] RBC 3.20(L) 3.80 - 4.80 M/mcL LAB HEMETOLOGY METHOD 09/17/2025 6:[address] [facility] Hemoglobin 9.7(L) 11.5 - 16.0 g/dL LAB HEMETOLOGY METHOD 09/17/2025 6:[address] [facility] Hematocrit 31.9(L) 35.0 - 47.0 % LAB HEMETOLOGY METHOD 09/17/2025 6:[address] [facility] MCV 100.0(H) 79.0 - 98.0 FL LAB HEMETOLOGY METHOD 09/17/2025 6:[address] [facility] MCH 30.4 27.0 - 32.0 pcg LAB HEMETOLOGY METHOD 09/17/2025 6:[address] [facility] MCHC 30.4(L) 32.0 - 37.0 g/dL LAB HEMETOLOGY METHOD 09/17/2025 6:[address] [facility] RDW 19.3(H) 11.0 - 15.0 % LAB HEMETOLOGY METHOD 09/17/2025 6:[address] [facility] Platelets 231 130 - 400 K/mcL LAB HEMETOLOGY METHOD 09/17/2025 6:[address] [facility] MPV 9.6 7.0 - 11.0 FL LAB HEMETOLOGY METHOD 09/17/2025 6:[address] [facility] NRBC 0.0 <1.0 % LAB HEMETOLOGY METHOD 09/17/2025 6:[address] [facility] NRBC Absolute 0.00 <0.10 K/mcL LAB HEMETOLOGY METHOD 09/17/2025 6:[address] [facility] Neutrophils Relative 86.5 % LAB HEMETOLOGY METHOD 09/17/2025 6:[address] [facility] Lymphocytes Relative 4.2 % LAB HEMETOLOGY METHOD 09/17/2025 6:[address] [facility] Monocytes Relative 6.5 % LAB HEMETOLOGY METHOD 09/17/2025 6:[address] [facility] Eosinophils Relative 2.1 % LAB HEMETOLOGY METHOD 09/17/2025 6:[address] [facility] Basophils Relative 0.4 % LAB HEMETOLOGY METHOD 09/17/2025 6:[address] [facility] Immature Granulocytes Relative 0.3 % LAB HEMETOLOGY METHOD 09/17/2025 6:[address] [facility] Neutrophils Absolute 6.22 1.50 - 7.00 K/mcL LAB HEMETOLOGY METHOD 09/17/2025 6:[address] [facility] Lymphocytes Absolute 0.30(L) 1.00 - 5.00 K/mcL LAB HEMETOLOGY METHOD 09/17/2025 6:[address] [facility] Monocytes Absolute 0.47 0.20 - 1.00 K/mcL LAB HEMETOLOGY METHOD 09/17/2025 6:42 AM EST [facility] Eosinophils Absolute 0.15 0.00 - 0.50 K/[facility] LAB HEMETOLOGY METHOD 09/17/2025 6:42 AM EST [facility] Basophils Absolute 0.03 0.00 - 0.20 K/[facility] LAB HEMETOLOGY METHOD 09/17/2025 6:42 AM EST [facility] Immature Granulocytes Absolute 0.02 0.00 - 0.03 K/[facility] HEMETOLOGY METHOD 09/17/2025 6:[address] [facility] Blood Venous blood specimen / Unknown Venipuncture / Unknown 09/17/2025 5:45 AM EST 09/17/2025 6:12 AM EST us Mikael Balderas MD LAB BLOOD ORDERABLES Final Resul t [facility] [address] [place] [address], [place] [phone] * (ABNORMAL) Basic metabolic panel (09/17/2025 5:45 AM EST) Sodium 140 133 - 145 mmol/L 09/17/2025 6:[address] [facility] Potassium 3.6 3.5 - 5.5 mmol/L 09/17/2025 6:[address] [facility] Chloride 107 96 - 110 mmol/L 09/17/2025 6:[address] [facility] CO2 23 21 - 32 mmol/L 09/17/2025 6:[address] [facility] Anion Gap 10 3 - 11 09/17/2025 6:[address] [facility] Glucose 113(H) 70 - 100 mg/dL 09/17/2025 6:[address] [facility] BUN 35(H) 5 - 25 mg/dL 09/17/2025 6:[address] [facility] Creatinine 1.17(H) 0.50 - 1.10 mg/dL 09/17/2025 6:[address] [facility] eGFR 47(L) >=60 mL/min/1. 73m2 09/17/2025 6:[address] [facility] Comment:Calculation based on the Chronic Kidney Disease Epidemiology Collaboration (CKD-EPI) equation refit without adjustment for race. BUN/Creatinine Ratio 29.9 09/17/2025 6:[address] [facility] Calcium 7.5(L) 8.5 - 10.5 mg/dL 09/17/2025 6:[address] [facility] Blood Venous blood specimen / Unknown Venipuncture / Unknown 09/17/2025 5:45 AM EST 09/17/2025 6:12 AM EST us Mikael Baledras MD LAB BLOOD ORDERABLES Final Resul t [facility] [address] [place] [address], [place] [phone] * (ABNORMAL) Troponin I high sensitivity (09/16/2025 11:21 AM EST) High Sensitivity Troponin I 36(H) <=34 ng/L 09/16/2025 12:[address] [facility] Blood Venous blood specimen / Unknown Venipuncture / Unknown 09/16/2025 11:21 AM EST 09/16/2025 11:31 AM EST us Mikael Balderas MD LAB BLOOD ORDERABLES Final Resul t [facility] [address] [place] [address], [place] [phone] * (ABNORMAL) CBC auto differential (09/16/2025 5:22 AM EST) [facility] WBC 4.1(L) 4.8 - 10.8 K/mcL LAB HEMETOLOGY METHOD 09/16/2025 5:[address] [facility] RBC 2.80(L) 3.80 - 4.80 M/mcL LAB HEMETOLOGY METHOD 09/16/2025 5:[address] [facility] Hemoglobin 8.6(L) 11.5 - 16.0 g/dL LAB HEMETOLOGY METHOD 09/16/2025 5:[address] [facility] Hematocrit 27.8(L) 35.0 - 47.0 % LAB HEMETOLOGY METHOD 09/16/2025 5:[address] [facility] MCV 100.0(H) 79.0 - 98.0 FL LAB HEMETOLOGY METHOD 09/16/2025 5:[address] [facility] MCH 30.9 27.0 - 32.0 pcg LAB HEMETOLOGY METHOD 09/16/2025 5:[address] [facility] MCHC 30.9(L) 32.0 - 37.0 g/dL LAB HEMETOLOGY METHOD 09/16/2025 5:[address] [facility] RDW 19.3(H) 11.0 - 15.0 % LAB HEMETOLOGY METHOD 09/16/2025 5:[address] [facility] Platelets 140 130 - 400 K/mcL LAB HEMETOLOGY METHOD 09/16/2025 5:[address] [facility] MPV 9.4 7.0 - 11.0 FL LAB HEMETOLOGY METHOD 09/16/2025 5:[address] [facility] NRBC 0.0 <1.0 % LAB HEMETOLOGY METHOD 09/16/2025 5:[address] [facility] NRBC Absolute 0.00 <0.10 K/mcL LAB HEMETOLOGY METHOD 09/16/2025 5:[address] [facility] Neutrophils Relative 80.8 % LAB HEMETOLOGY METHOD 09/16/2025 5:[address] [facility] Lymphocytes Relative 7.3 % LAB HEMETOLOGY METHOD 09/16/2025 5:[address] [facility] Monocytes Relative 8.0 % LAB HEMETOLOGY METHOD 09/16/2025 5:[address] [facility] Eosinophils Relative 2.9 % LAB HEMETOLOGY METHOD 09/16/2025 5:[address] [facility] Basophils Relative 0.5 % LAB HEMETOLOGY METHOD 09/16/2025 5:[address] [facility] Immature Granulocytes Relative 0.5 % LAB HEMETOLOGY METHOD 09/16/2025 5:[address] [facility] Neutrophils Absolute 3.31 1.50 - 7.00 K/mcL LAB HEMETOLOGY METHOD 09/16/2025 5:[address] [facility] Lymphocytes Absolute 0.30(L) 1.00 - 5.00 K/mcL LAB HEMETOLOGY METHOD 09/16/2025 5:[address] [facility] Monocytes Absolute 0.33 0.20 - 1.00 K/mcL LAB HEMETOLOGY METHOD 09/16/2025 5:[address] [facility] Eosinophils Absolute 0.12 0.00 - 0.50 K/mcL LAB HEMETOLOGY METHOD 09/16/2025 5:[address] [facility] Basophils Absolute 0.02 0.00 - 0.20 K/mcL LAB HEMETOLOGY METHOD 09/16/2025 5:[address] [facility] Immature Granulocytes Absolute 0.02 0.00 - 0.03 K/mcL LAB HEMETOLOGY METHOD 09/16/2025 5:35 AM EST [facility] Blood Venous blood specimen / Unknown Venipuncture / Unknown 09/16/2025 5:22 AM EST 09/16/2025 5:30 AM EST [facility] LAB BLOOD ORDERABLES Margot l Result Performing Organization Address City/[facility]/ZIP Co de Phone Number [facility] [address] [place] [address], [place] [phone] * Magnesium (09/16/2025 5:22 AM EST) Magnesium 1.9 1.9 - 2.6 mg/dL 09/16/2025 6:[address] [facility] Blood Venous blood specimen / Unknown Venipuncture / Unknown 09/16/2025 5:22 AM EST 09/16/2025 5:30 AM EST [facility] LAB BLOOD ORDERABLES Margot l Result Performing Organization Address City/[facility]/ZIP Co de Phone Number [facility] [address] [place] [address], [place] [phone] * (ABNORMAL) Basic metabolic panel (09/16/2025 5:22 AM EST) Sodium 140 133 - 145 mmol/L 09/16/2025 6:[address] [facility] Potassium 3.4(L) 3.5 - 5.5 mmol/L 09/16/2025 6:[address] [facility] Chloride 108 96 - 110 mmol/L 09/16/2025 6:[address] [facility] CO2 26 21 - 32 mmol/L 09/16/2025 6:[address] [facility] Anion Gap 6 3 - 11 09/16/2025 6:[address] [facility] Glucose 106(H) 70 - 100 mg/dL 09/16/2025 6:[address] [facility] BUN 36(H) 5 - 25 mg/dL 09/16/2025 6:[address] [facility] Creatinine 0.97 0.50 - 1.10 mg/dL 09/16/2025 6:[address] [facility] eGFR 59(L) >=60 mL/min/1. 73m2 09/16/2025 6:[address] [facility] Comment:Calculation based on the Chronic Kidney Disease Epidemiology Collaboration (CKD-EPI) equation refit without adjustment for race. BUN/Creatinine Ratio 37.1 09/16/2025 6:[address] [facility] Calcium 7.2(L) 8.5 - 10.5 mg/dL 09/16/2025 6:[address] [facility] Blood Venous blood specimen / Unknown Venipuncture / Unknown 09/16/2025 5:22 AM EST 09/16/2025 5:30 AM EST [facility] LAB BLOOD ORDERABLES Margot l Result Performing Organization Address City/[facility]/ZIP Co de Phone Number [facility] [address] [place] [address], * (ABNORMAL) Troponin I high sensitivity (09/15/2025 8:19 PM EST) Pathologist [facility] High Sensitivity Troponin I 81(H) <=34 ng/L 09/15/2025 8:54 PM EST [facility] Blood Venous blood specimen / Unknown Venipuncture / Unknown 09/15/2025 8:19 PM EST 09/15/2025 8:26 PM EST [facility] LAB BLOOD ORDERABLES Margot l Result [facility] [address] [place] [address], [place] [phone] * Lactate (09/15/2025 8:19 PM EST) [facility] Lactate 0.7 0.4 - 2.0 mmol/L 09/15/2025 8:54 PM EST [facility] Blood Venous blood specimen / Unknown Venipuncture / Unknown 09/15/2025 8:19 PM EST 09/15/2025 8:26 PM EST us Angel Yuen MD LAB BLOOD ORDERABLES Final Resul t [facility] [address] [place] [address], * MRSA molecular study (09/15/2025 8:10 PM EST) [facility] MRSA Screen PCR Not Detected Not Detected LAB MICROBIOLOGY METHOD 09/15/2025 9:51 PM EST [facility] Swab Both anterior nares / Unknown Non-blood Collection / Unknown 09/15/2025 8:10 PM EST 09/15/2025 8:32 PM EST us Angel Yuen MD LAB MICROBIOLOGY - GENERAL ORDER MATT Final Result [facility] [address] [place] [address], * CT Angio Chest wo and/or w Contrast (09/15/2025 5:18 PM EST) Anatomical Region Laterality Modality Body Computed Tomogra phy 09/15/2025 5:55 PM EST Impressions 09/15/2025 5:55 PM EST 1. There is no evidence of pulmonary artery embolism. 2. There is generalized increased fluid status with [id number] bilateral pleural effusions, moderate ascites, a small pericardial effusion and edema of the soft tissues. 3. Opacities within the left lower lobe may be secondary to atelectasis or pneumonia. 4. Markedly dilated esophagus containing debris. Suspect achalasia. This document has been electronically signed by: Lindsay Moura MD on 09/15/2025 17:55:20 Narrative 09/15/2025 5:55 PM EST INDICATION: concern PE CT angiography chest with contrast. 3D Postprocessing. Comparison: None provided Findings: Mild cardiomegaly. Small pericardial effusion. The thoracic aorta is normal caliber. No acute pulmonary embolus. Markedly heterogeneous thyroid gland with multiple small nodules. Markedly dilated esophagus containing debris. No mediastinal lymphadenopathy. There are small to moderate bilateral pleural effusions. There are ground-glass and linear opacities and small foci of consolidation and volume loss within adjacent portions of the left lower lobe. Relatively mild dependent changes within the right lung. Mild bilateral apical scarring. There is a moderate amount of ascites within the visualized abdomen. There is edema of the soft tissues. Status post right shoulder replacement. No acute fracture. There is a left-sided Port-A-Cath with its tip at the cavoatrial junction. Procedure Note Lindsay Fernandez MD - 09/15/2025 INDICATION: concern PE CT angiography chest with contrast. 3D Postprocessing. Comparison: None provided Findings: Mild cardiomegaly. Small pericardial effusion. The thoracic aorta is normal caliber. No acute pulmonary embolus. Markedly heterogeneous thyroid gland with multiple small nodules.Markedly dilated esophagus containing debris. No mediastinal lymphadenopathy. There are small to moderate bilateral pleural effusions. There are ground-glass and linear opacities and small foci of consolidation and volume loss within adjacent portions of the left lower lobe. Relatively mild dependent changes within the right lung. Mild bilateral apical scarring. There is a moderate amount of ascites within the visualized abdomen.There is edema of the soft tissues. Status post right shoulder replacement. No acute fracture. There is a left-sided Port-A-Cath with its tip at the cavoatrialjunction. IMPRESSION: 1. There is no evidence of pulmonary artery embolism. 2. There is generalized increased fluid status with [id number] bilateral pleural effusions, moderate ascites, a small pericardial effusion and edema of the soft tissues. 3. Opacities within the left lower lobe may be secondary to atelectasisor pneumonia. 4. Markedly dilated esophagus containing debris. Suspect achalasia. This document has been electronically signed by: Lindsay Moura MD on 09/15/2025 17:55:20 Angel Yuen MD IMG CT PROCEDURES Final Result * (ABNORMAL) C-reactive protein (09/15/2025 3:02 PM EST) C-Reactive Protein 4.14(H) <=0.50 mg/dL 09/15/2025 8:04 PM EST [facility] Blood Venous blood specimen / Unknown Venipuncture / Unknown 09/15/2025 3:02 PM EST 09/15/2025 3:12 PM EST Cristhian Montoya MD LAB BLOOD ORDERABLES Final Re sult [facility] [address] [place] [address], * (ABNORMAL) Procalcitonin (09/15/2025 3:02 PM EST) Procalcitonin 0.67(H) <=0.05 ng/mL 09/15/2025 8:12 PM EST [facility] Blood Venous blood specimen / Unknown Venipuncture / Unknown 09/15/2025 3:02 PM EST 09/15/2025 3:12 PM EST Narrative [facility] - 09/15/2025 8:12 PM EST Procalcitonin > 2.00 ng/ml: Procalcitonin Levels above 2.00 ng/ml, on the first day of ICU admission represent a high risk for progression to severe sepsis and/or septic shock. Procalcitonin < 0.50 ng/ml: Procalcitonin levels below 0.50 ng/ml on the first day of ICU admission represent a low risk for progression to severe sepsis and/or septic shock. Concentrations <0.5 ng/mL do not exclude an infection, on account of local ized infections (without systemic signs) which can be associated with such low concentrations, or a systemic infection in its initial stages (<6 hours). Furthermore, increased procalcitonin can occur without infection. PCT concentrations between 0.5 and 2.0 ng/mL should be interpreted taking into account the patient's history. It is recommended to retest PCT within 6-24 hours if any concentrations <2.0 ng/mL are obtained. Cristhian Montoya MD LAB BLOOD ORDERABLES Final Re sult [facility] [address] [place] [address], * (ABNORMAL) Comprehensive Metabolic Panel (CMP) (09/15/2025 3:02 PM EST) Sodium 138 133 - 145 mmol/L 09/15/2025 4:[address] [facility] Potassium 3.9 3.5 - 5.5 mmol/L 09/15/2025 4:[address] [facility] Chloride 107 96 - 110 mmol/L 09/15/2025 4:[address] [facility] CO2 24 21 - 32 mmol/L 09/15/2025 4:[address] [facility] Anion Gap 7 3 - 11 09/15/2025 4:[address] [facility] Glucose 95 70 - 100 mg/dL 09/15/2025 4:[address] [facility] BUN 40(H) 5 - 25 mg/dL 09/15/2025 4:[address] [facility] Creatinine 0.93 0.50 - 1.10 mg/dL 09/15/2025 4:[address] [facility] eGFR 62 >=60 mL/min/1. 73m2 09/15/2025 4:[address] [facility] Comment:Calculation based on the Chronic Kidney Disease Epidemiology Collaboration (CKD-EPI) equation refit without adjustment for race. BUN/Creatinine Ratio 43.0 09/15/2025 4:[address] [facility] Calcium 7.6(L) 8.5 - 10.5 mg/dL 09/15/2025 4:[address] [facility] AST (SGOT) 29 10 - 42 unit/L 09/15/2025 4:[address] [facility] ALT (SGPT) 15 10 - 60 unit/L 09/15/2025 4:[address] [facility] Alkaline Phosphatase 640(H) 42 - 121 unit/L 09/15/2025 4:[address] [facility] Comment:Results verified by repeat testing Total Protein 5.1(L) 6.0 - 8.0 g/dL 09/15/2025 4:[address] [facility] Albumin 2.5(L) 3.2 - 5.0 g/dL 09/15/2025 4:[address] [facility] Total Bilirubin 0.4 0.0 - 1.4 mg/dL 09/15/2025 4:[address] [facility] Blood Venous blood specimen / Unknown Venipuncture / Unknown 09/15/2025 3:02 PM EST 09/15/2025 3:12 PM EST us Angel Yuen MD LAB BLOOD ORDERABLES Final Resul t [facility] [address] [place] [address], * (ABNORMAL) B-Type Natriuretic Peptide (BNP) (09/15/2025 3:02 PM EST) BNP 961(H) <=100 pcg/mL 09/15/2025 3:56 PM EST [facility] Blood Venous blood specimen / Unknown Venipuncture / Unknown 09/15/2025 3:02 PM EST 09/15/2025 3:12 PM EST Narrative [facility] - 09/15/2025 3:56 PM EST Over the counter supplements containing high doses of biotin may interfere with this assay. If interference is suspected, patients shoud be retested after refraining from biotin supplements for 72 hours. us Angel Yuen MD LAB BLOOD ORDERABLES Final Resul t [facility] [address] [place] [address], [place] [phone] * (ABNORMAL) CBC auto differential (09/15/2025 3:02 PM EST) [facility] WBC 5.1 4.8 - 10.8 K/mcL LAB HEMETOLOGY METHOD 09/15/2025 3:[address] [facility] RBC 3.00(L) 3.80 - 4.80 M/[facility] LAB HEMETOLOGY METHOD 09/15/2025 3:[address] [facility] Hemoglobin 9.3(L) 11.5 - 16.0 g/dL LAB HEMETOLOGY METHOD 09/15/2025 3:[address] [facility] Hematocrit 30.1(L) 35.0 - 47.0 % LAB HEMETOLOGY METHOD 09/15/2025 3:[address] [facility] MCV 100.7(H) 79.0 - 98.0 FL LAB HEMETOLOGY METHOD 09/15/2025 3:[address] [facility] MCH 31.1 27.0 - 32.0 pcg LAB HEMETOLOGY METHOD 09/15/2025 3:[address] [facility] MCHC 30.9(L) 32.0 - 37.0 g/dL LAB HEMETOLOGY METHOD 09/15/2025 3:[address] [facility] RDW 19.1(H) 11.0 - 15.0 % LAB HEMETOLOGY METHOD 09/15/2025 3:[address] [facility] Platelets 164 130 - 400 K/mcL LAB HEMETOLOGY METHOD 09/15/2025 3:[address] [facility] MPV 9.5 7.0 - 11.0 FL LAB HEMETOLOGY METHOD 09/15/2025 3:[address] [facility] NRBC 0.0 <1.0 % LAB HEMETOLOGY METHOD 09/15/2025 3:[address] [facility] NRBC Absolute 0.00 <0.10 K/mcL LAB HEMETOLOGY METHOD 09/15/2025 3:[address] [facility] Neutrophils Relative 84.2 % LAB HEMETOLOGY METHOD 09/15/2025 3:[address] [facility] Lymphocytes Relative 6.1 % LAB HEMETOLOGY METHOD 09/15/2025 3:[address] [facility] Monocytes Relative 7.5 % LAB HEMETOLOGY METHOD 09/15/2025 3:[address] [facility] Eosinophils Relative 1.4 % LAB HEMETOLOGY METHOD 09/15/2025 3:[address] [facility] Basophils Relative 0.2 % LAB HEMETOLOGY METHOD 09/15/2025 3:[address] [facility] Immature Granulocytes Relative 0.6 % LAB HEMETOLOGY METHOD 09/15/2025 3:[address] [facility] Neutrophils Absolute 4.29 1.50 - 7.00 K/mcL LAB HEMETOLOGY METHOD 09/15/2025 3:[address] [facility] Lymphocytes Absolute 0.31(L) 1.00 - 5.00 K/mcL LAB HEMETOLOGY METHOD 09/15/2025 3:[address] [facility] Monocytes Absolute 0.38 0.20 - 1.00 K/mcL LAB HEMETOLOGY METHOD 09/15/2025 3:20 PM EST [facility] Eosinophils Absolute 0.07 0.00 - 0.50 K/[facility] HEMETOLOGY METHOD 09/15/2025 3:20 PM EST [facility] Basophils Absolute 0.01 0.00 - 0.20 K/[facility] HEMETOLOGY METHOD 09/15/2025 3:20 PM EST [facility] Immature Granulocytes Absolute 0.03 0.00 - 0.03 K/[facility] HEMETOLOGY METHOD 09/15/2025 3:20 PM EST [facility] Blood Venous blood specimen / Unknown Venipuncture / Unknown 09/15/2025 3:02 PM EST 09/15/2025 3:12 PM EST us Angel Yuen MD LAB BLOOD ORDERABLES Final Resul t Performing Organization Address City/[facility]/ZIP Co de Phone Number [facility] [address] [place] [address], [place] [phone] * Protime-INR (09/15/2025 3:02 PM EST) [facility] Protime 13.9 10.6 - 13.9 sec LAB COAGULATION METHOD 09/15/2025 3:29 PM EST [facility] INR 1.1 LAB COAGULATION METHOD 09/15/2025 3:29 PM EST [facility] Blood Venous blood specimen / Unknown Venipuncture / Unknown 09/15/2025 3:02 PM EST 09/15/2025 3:12 PM EST us Angel Yuen MD LAB BLOOD ORDERABLES Final Resul t [facility] [address] [place] [address], [place] [phone] * (ABNORMAL) APTT (09/15/2025 3:02 PM EST) [facility] aPTT 44.9(H) 24.1 - 39.3 sec LAB COAGULATION METHOD 09/15/2025 3:29 PM EST [facility] Blood Venous blood specimen / Unknown Venipuncture / Unknown 09/15/2025 3:02 PM EST 09/15/2025 3:12 PM EST us Angel Yuen MD LAB BLOOD ORDERABLES Final Resul t Performing Organization Address [facility] Co de Phone Number [facility] [address] [place] [address], [place] [phone] * (ABNORMAL) Troponin I high sensitivity (09/15/2025 3:02 PM EST) [facility] High Sensitivity Troponin I 84(H) <=34 ng/L 09/15/2025 3:56 PM EST [facility] Blood Venous blood specimen / Unknown Venipuncture / Unknown 09/15/2025 3:02 PM EST 09/15/2025 3:12 PM EST us Angel Yuen MD LAB BLOOD ORDERABLES Final Resul t Performing Organization Address [facility] Co de Phone Number [facility] [address] [place] [address], [place] [phone] * Vascular US Duplex Lower Extremity Venous Bilateral (09/15/2025 2:16 PM EST) Anatomical Region Laterality Modality Vascular, Abdomen Ultrasound 09/15/2025 3:09 PM EST Narrative 09/15/2025 3:10 PM EST INDICATION: bilateral leg pain and swelling. FINDINGS: A duplex venous ultrasound was performed of both lower extremities. The common femoral, superficial femoral and popliteal veins demonstrate color-flow with augmentation and compressibility. The visualized calf veins also demonstrate color-flow. Soft tissue edematous changes noted bilaterally. Incidental note made of small amount of ascites in the right lower quadrant. CONCLUSION: No evidence of deep vein thrombosis in either lower extremity. -------- FINAL REPORT -------- Dictated By: Keith Santo Dictated Date: 09/15/2025 15:09 ET Assigned Physician: Keith Santo Reviewed and Electronically Signed By: Keith Santo Signed Date: 09/15/2025 15:10 ET Workstation ID: [id number] Transcribed By: Self Edit Transcribed Date: 09/15/2025 15:09 ET Procedure Note Keith Santo MD - 09/15/2025 INDICATION: bilateral leg pain and swelling. FINDINGS: A duplex venous ultrasound was performed of both lowerextremities. The common femoral, superficial femoral and popliteal veinsdemonstrate color-flow with augmentation and compressibility. Thevisualized calf veins also demonstrate color-flow. Soft tissue edematous changes noted bilaterally. Incidental note made of small amount of ascites in the right lowerquadrant. CONCLUSION: No evidence of deep vein thrombosis in either lower extremity. -------- FINAL REPORT -------- Dictated By: Keith Santo Dictated Date: 09/15/2025 15:09 ET Assigned Physician: Keith Santo Reviewed and Electronically Signed By: Keith Santo Signed Date: 09/15/2025 15:10 ET Workstation ID: [id number] Transcribed By: Self Edit Transcribed Date: 09/15/2025 15:09 ET us Angel Yuen MD CV VASCULAR PROCEDURES Final Res ult * XR Chest 2 Views (09/15/2025 1:31 PM EST) Anatomical Region Laterality Modality Body Radiographic Abigail ging 09/15/2025 2:24 PM EST Impressions 09/15/2025 2:27 PM EST Left basilar atelectasis and/or infiltrate with small effusion suspected. -------- FINAL REPORT -------- Dictated By: Keith Santo Dictated Date: 09/15/2025 14:24 ET Assigned Physician: Keith Santo Reviewed and Electronically Signed By: Keith Santo Signed Date: 09/15/2025 14:27 ET Workstation ID: [id number] Transcribed By: Self Edit Transcribed Date: 09/15/2025 14:24 ET Narrative 09/15/2025 2:27 PM EST INDICATION: Chest pain FINDINGS: Two views of the chest were obtained. Compared to multiple prior studies most recent from July 24, 2024. Lung tracey are mildly hypoinflated. Airspace disease within the left lung base likely represents atelectasis and/or infiltrate with possible small effusion. Cardiomediastinal silhouette is normal in size and shape. Diffuse thoracic aortic calcification with mild tortuosity. Osteopenia and degenerative changes with reverse total right shoulder replacement, well-positioned and unchanged. Procedure Note Keith Santo MD - 09/15/2025 INDICATION: Chest pain FINDINGS: Two views of the chest were obtained. Compared to multiple priorstudies most recent from July 24, 2024. Lung tracey are mildly hypoinflated. Airspace disease within the left lungbase likely represents atelectasis and/or infiltrate with possible smalleffusion. Cardiomediastinal silhouette is normal in size and shape. Diffuse thoracicaortic calcification with mild tortuosity. Osteopenia and degenerative changes with reverse total right shoulderreplacement, well-positioned and unchanged. IMPRESSION: Left basilar atelectasis and/or infiltrate with small effusionsuspected. -------- FINAL REPORT -------- Dictated By: Keith Santo Dictated Date: 09/15/2025 14:24 ET Assigned Physician: Keith Santo Reviewed and Electronically Signed By: Keith Santo Signed Date: 09/15/2025 14:27 ET Workstation ID: [id number] Transcribed By: Self Edit Transcribed Date: 09/15/2025 14:24 ET Angel Yuen MD IMG XR PROCEDURES Final Result * ECG 12 lead (Now) (09/15/2025 12:41 PM EST) Ventricular Rate ECG 93 BPM GEMUSE Atrial Rate 93 BPM GEMUSE P-R Interval 162 ms GEMUSE QRS Duration 80 ms GEMUSE Q-T Interval 400 ms GEMUSE QTc 497 ms GEMUSE P Wave [place] 58 degrees GEMUSE R [place] 93 degrees GEMUSE T [place] 77 degrees GEMUSE ECG Interpretation Normal sinus rhythm Possible Left atrial enlargement When compared with ECG of 15-SEP-2025 12:38, (unconfirmed) No significant change was found Confirmed by KEVYN MCANMARA ([id number]) on 09/17/2025 12:07:29 AM GEMUSE 09/15/2025 12:4 1 PM EST 09/17/2025 12:07 AM EST us Angel Yuen MD ECG ORDERABLES Final Result GEMUSE documented in this encounter Visit Diagnoses Diagnosis Fluid overload- Primary SOB (shortness of breath) Shortness of breath Leg swelling Swelling of limb Pneumonia of left lung due to infectious organism, unspecified part of lung Pleural effusion Unspecified pleural effusion Congestive heart failure, unspecified HF chronicity, unspecified heart failure type (CMS/HCC V24, CMS/HCC V28) Fluid overload Achalasia Achalasia and cardiospasm Bacteremia 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 documented in this encounter Admitting Diagnoses Diagnosis Fluid overload documented in this encounter Administered Medications Inactive Administered Medications - up to 3 most recent administrations Medication Order MAR Action Action Date Dose Rate Site acetaminophen (TYLENOL) tablet 650 mg 650 mg, oral, Every 6 hours PRN, mild pain, fever - temperature GREATER than 38 C (100.4 F), Starting on Sat09/15/25 at 1921 Given 09/23/2025 9:37 AM EST 650 mg Given 09/18/2025 9:47 AM EST 650 mg Given 09/17/2025 8:53 AM EST 650 mg apixaban (ELIQUIS) tablet 2.5 mg 2.5 mg, oral, 2 times daily, First dose on Sat09/15/25 at 2243, Indication: VTE/PE Prophylaxis, Indications: hip surgery deep vein thrombosis preventionIndications:hip surgery deep vein thrombosis prevention Given 09/24/2025 9:09 AM EST 2.5 mg Given 09/23/2025 9:47 PM EST 2.5 mg Given 09/23/2025 9:36 AM EST 2.5 mg ascorbic acid (VITAMIN C) tablet 250 mg 250 mg, oral, Daily, First dose on 09/18/25 at 1745, For 14 doses Given 09/24/2025 9:09 AM EST 250 mg Given 09/23/2025 9:36 AM EST 250 mg Given 09/22/2025 9:33 AM EST 250 mg cefTRIAXone (ROCEPHIN) 1 g in sterile water 10 mL IV syringe 1 g, intravenous, Administer over 3 Minutes, Every 24 hours, First dose on Sat09/19/25 at 1130, For 3 days, Do not administer simultaneously with any calcium containing solutions via a Y-site in any patient., Indication: Urinary Tract/Genitourinary Given 09/21/2025 11:28 AM EST 1 g Given 09/20/2025 11:44 AM EST 1 g Given 09/19/2025 12:21 PM EST 1 g cefTRIAXone (ROCEPHIN) 2 g in sterile water 20 mL IV syringe 2 g, intravenous, Administer over 3 Minutes, Every 24 hours, First dose on Sat09/21/25 at 1545, For 7 days, Do not administer simultaneously with any calcium containing solutions via a Y-site in any patient., Indication: Bacteremia Given 09/22/2025 4:07 PM EST 2 g Given 09/21/2025 4:02 PM EST 2 g collagenase (SANTYL) 250 unit/gram ointment Topical, Daily, First dose on Sat09/17/25 at 1245, Apply to sacrum Application of ointment should be approximately 2 mm thick. Given 09/24/2025 9:08 AM EST Given 09/23/2025 9:36 AM EST Given 09/21/2025 9:47 AM EST dorzolamide (TRUSOPT) 2 % ophthalmic solution 1 drop 1 drop, Both Eyes, 3 times daily, First dose on Sat09/15/25 at 2243 Given 09/24/2025 3:09 PM EST 1 drop Given 09/24/2025 9:08 AM EST 1 drop Given 09/23/2025 9:56 PM EST 1 drop doxycycline (VIBRAMYCIN) 100 mg in sodium chloride 0.9 % 100 mL IVPB 100 mg, intravenous, at 100 mL/hr, Administer over 60 Minutes, Every 12 hours, First dose on Sat09/19/25 at 1130, For 3 days, Indication: Pneumonia, Community Acquired New Bag 09/21/2025 11:28 AM EST 100 mg 100 mL/hr New Bag 09/20/2025 11:32 PM EST 100 mg 100 mL/hr New Bag 09/20/2025 11:44 AM EST 100 mg 100 mL/hr furosemide (LASIX) injection 20 mg 20 mg, intravenous, Once, On 09/15/25 at 1828, For 1 dose Given 09/15/2025 8:15 PM EST 20 mg furosemide (LASIX) injection 20 mg 20 mg, intravenous, Once, On 09/15/25 at 2323, For 1 dose Given 09/15/2025 11:59 PM EST 20 mg furosemide (LASIX) injection 40 mg 40 mg, intravenous, BID Diuretic, First dose (after last reorder) on Kandice 09/16/25 at 0900 Given 09/17/2025 5:30 PM EST 40 mg Given 09/17/2025 9:05 AM EST 40 mg Given 09/16/2025 4:15 PM EST 40 mg gabapentin (NEURONTIN) capsule 200 mg 200 mg, oral, Nightly, First dose on Kandice 09/16/25 at 2100 Given 09/23/2025 9:47 PM EST 200 mg Given 09/22/2025 8:41 PM EST 200 mg Given 09/21/2025 9:08 PM EST 200 mg HYDROmorphone (DILAUDID) injection 0.5 mg 0.5 mg, intravenous, Once, On 09/18/25 at 0245, For 1 dose Given 09/18/2025 3:03 AM EST 0.5 mg HYDROmorphone (DILAUDID) injection 0.5 mg 0.5 mg, intravenous, Every 3 hours PRN, breakthrough pain, Starting on 09/18/25 at 1321 Given 09/23/2025 9:55 PM EST 0.5 mg Given 09/23/2025 4:45 PM EST 0.5 mg Given 09/23/2025 9:37 AM EST 0.5 mg iopamidoL (ISOVUE-370) 370 mg iodine /mL (76 %) injection 100 mL 100 mL, intravenous, Once in imaging, Starting on 09/15/25 at 1706, For 1 dose Given 09/15/2025 5:13 PM EST 90 mL iopamidoL (ISOVUE-370) 370 mg iodine /mL (76 %) injection 90 mL 90 mL, intravenous, Once in imaging, Starting on Sat09/22/25 at 1051, For 1 dose Given 09/22/2025 10:55 AM EST 90 mL lidocaine 4 % patch 1 patch 1 patch, Topical, Administer over 12 Hours, Daily, First dose on Sat09/15/25 at 1901, Apply to left leg. Patch Applied 09/24/2025 9:08 AM EST 1 patch Back Patch Applied 09/23/2025 9:36 AM EST 1 patch Other Patch Applied 09/22/2025 6:21 PM EST 1 patch Other magnesium oxide (MAG-OX) tablet 400 mg 400 mg, oral, Daily, First dose on Sat09/22/25 at 2315 Given 09/24/2025 9:09 AM EST 400 mg Given 09/22/2025 11:17 PM EST 400 mg metoprolol succinate (TOPROL-XL) 24 Hour tablet 100 mg 100 mg, oral, Daily, First dose on Kandice 09/16/25 at 0900, Do not crush or chew. Given 09/19/2025 9:18 AM EST 100 mg Given 09/18/2025 9:46 AM EST 100 mg Given 09/17/2025 8:53 AM EST 100 mg metoprolol succinate (TOPROL-XL) 24 Hour tablet 25 mg 25 mg, oral, Daily, First dose (after last modification) on Sat09/20/25 at 0900, Do not crush or chew. Given 09/20/2025 11:05 AM EST 25 mg metoprolol succinate (TOPROL-XL) 24 Hour tablet 50 mg 50 mg, oral, Daily, First dose (after last modification) on Sat09/21/25 at 0900, Hold if sbp < 100 Do not crush or chew. Given 09/24/2025 9:08 AM EST 50 mg Given 09/23/2025 9:36 AM EST 50 mg Given 09/22/2025 9:34 AM EST 50 mg metoprolol tartrate (LOPRESSOR) injection 2.5 mg 2.5 mg, intravenous, Once, On Sat09/20/25 at 2345, For 1 dose, For IV Push - Administer undiluted over 2 minutes Given 09/20/2025 11:41 PM EST 2.5 mg micafungin (MYCAMINE) 100 mg in sodium chloride 0.9 % 100 mL IVPB 100 mg, intravenous, at 100 mL/hr, Administer over 60 Minutes, Every 24 hours, First dose on Sat09/21/25 at 1530, For 14 days, Indication: Candidiasis, Authorizing ID: Infectious Disease Physician/Fellow New Bag 09/24/2025 3:12 PM EST 100 mg 100 mL/hr New Bag 09/23/2025 4:01 PM EST 100 mg 100 mL/hr New Bag 09/22/2025 4:08 PM EST 100 mg 100 mL/hr NON FORMULARY 3 mg, oral, 3 times daily, First dose on Sat09/15/25 at 2243, Drug Name: Orenitram, Form: tablet, Length of Therapy: Indefinite, How soon needed? (normally 72 hrs needed to procure): 0-24 hrs, Reason for Non-Formulary: Alterantive unavailable Given 09/16/2025 12:00 AM EST 3 mg ondansetron (PF) (ZOFRAN) injection 4 mg 4 mg, intravenous, Every 6 hours PRN, vomiting, nausea, Starting on Sat09/15/25 at 1921, -ONLY give IV if patient is unable to take orally. -If inadequate response within 30 minutes, proceed to next-line agent or contact provider if no further options ordered. Given 09/22/2025 11:25 PM EST 4 m g oxyCODONE (ROXICODONE) immediate release tablet 5 mg 5 mg, oral, Once, On Sat09/16/25 at 0213, For 1 dose Given 09/16/2025 2:31 AM EST 5 mg oxyCODONE (ROXICODONE) immediate release tablet 5 mg 5 mg, oral, Every 6 hours PRN, severe pain, Starting on Sat09/16/25 at 0849 Given 09/24/2025 3:09 PM EST 5 mg Given 09/24/2025 9:09 AM EST 5 mg Given 09/22/2025 1:32 PM EST 5 mg oxyCODONE (ROXICODONE) immediate release tablet 5 mg 5 mg, oral, Once, On Sat09/17/25 at 1330, For 1 dose, Given in addition to q 6 hour prn dose Given 09/17/2025 1: 14 PM EST 5 mg pantoprazole (PROTONIX) EC tablet 40 mg 40 mg, oral, Every morning before breakfast, First dose on Sat09/16/25 at 0700, Do not crush, chew, or split. Given 09/16/2025 6:44 AM EST 40 mg pantoprazole (PROTONIX) injection 40 mg 40 mg, intravenous, Administer over 2 Minutes, Every 12 hours scheduled, First dose on Sat09/17/25 at 0900, Pantroprazole - IV push: Reconstitute powder for injection with 10 mL NS; final concentration: 4 mg/mL., Indication for IV Push Pantoprazole? EGD evidence of PUD with stigmata or Upper G.I. Bleed Given 09/24/2025 9:08 AM EST 40 mg Given 09/23/2025 9:46 PM EST 40 mg Given 09/23/2025 9:36 AM EST 40 mg PATIENT OWN'S MED: Ambrisentan (LETAIRIS) tablet 5 mg 5 mg, oral, Daily, First dose on Sat09/16/25 at 2100, Hazardous Medication Intact: - Single pair of ASTM standard [id number] certified gloves - Eye/face protection if vomit or potential to spit up - Do NOT split, crush, or open dosage units, Drug Name: Letairis, Form: tablet, Length of Therapy: Indefinite, How soon needed? (normally 72 hrs needed to procure): 0-24 hrs, Reason for Non-Formulary: Alternative unavailable Given 09/23/2025 9:56 PM EST 5 mg Given 09/21/2025 9:09 PM EST 5 mg Given 09/20/2025 9:37 PM EST 5 mg PATIENT'S OWN MED: Treprostinil diolamine (ORENITRAM) ER tablet 1 mg 3 mg, oral, 3 times daily, First dose on Sat09/16/25 at 1130, Patient's own med: Treprostinil diolamine (ORENITRAM) ER tablet 1 mg Take 3 mg (3 x 1 mg tablets) three times a day Do not crush, chew, or split. Given 09/24/2025 3:12 PM EST 3 mg Given 09/24/2025 9:10 AM EST 3 mg Given 09/23/2025 9:57 PM EST 3 mg perflutren lipid microsphere (DEFINITY) 1.3 mL in sodium chloride 0.9% 8.7 mL injection 10 mL, intravenous, Administer over 10 Minutes, Once in imaging, Starting on Kandice 09/16/25 at 1115, For 1 dose, CV Medication Orders Given 09/17/2025 11:12 AM EST 10 mL piperacillin-tazobactam (ZOSYN) 4.5 g in sodium chloride 0.9 % 100 mL IVPB 4.5 g, intravenous, at 200 mL/hr, Administer over 0.5 Hours, Once, On Sat09/15/25 at 1825, For 1 dose, Do not administer through same line as lactated ringer s fluids (LR), Indication: Pneumonia, Community Acquired New Bag 09/15/2025 8:15 PM EST 4.5 g 2 00 mL/hr piperacillin-tazobactam (ZOSYN) 4.5 g in sodium chloride 0.9 % 100 mL IVPB 4.5 g, intravenous, at 200 mL/hr, Administer over 0.5 Hours, Every 8 hours, First dose (after last reorder) on Kandice 09/16/25 at 0415, For 7 days, Do not administer through same line as lactated ringer s fluids (LR), Indication: Pneumonia, Nosocomial New Bag 09/19/2025 4:57 AM EST 4.5 g 200 mL/hr New Bag 09/18/2025 8:38 PM EST 4.5 g 200 mL/hr New Bag 09/18/2025 12:00 PM EST 4.5 g 200 mL/hr polyethylene glycol (MIRALAX) packet 17 g 17 g, oral, Nightly, First dose on Sat09/15/25 at 2100, Bowel Regimen - for prevention of constipation Given 09/20/2025 9:36 PM EST 17 g potassium chloride 10 mEq/100 mL IVPB 10 mEq 10 mEq, intravenous, at 100 mL/hr, Administer over 1 Hours, Every 1 hour, First dose on Kandice 09/16/25 at 0849, For 4 doses New Bag 09/16/2025 2:05 PM EST 100 mL/hr New Bag 09/16/2025 12:17 PM EST 10 mEq 100 mL/hr New Bag 09/16/2025 10:58 AM EST 10 mEq 100 mL/hr QUEtiapine (SEROquel) tablet 25 mg 25 mg, oral, Nightly, First dose on Sat09/16/25 at 2100 Given 09/23/2025 9:47 PM EST 25 mg Given 09/22/2025 8:42 PM EST 25 mg Given 09/21/2025 9:08 PM EST 25 mg QUEtiapine (SEROquel) tablet 25 mg 25 mg, oral, Once, On Sat09/16/25 at 0113, For 1 dose Given 09/16/2025 1:35 AM EST 25 mg sildenafil (REVATIO) tablet 20 mg 20 mg, oral, 3 times daily, First dose on Sat09/15/25 at 2243 Given 09/24/2025 3:09 PM EST 20 mg Given 09/24/2025 9:09 AM EST 20 mg Given 09/23/2025 9:47 PM EST 20 mg sodium chloride 0.9 % flush 10 mL 10 mL, intravenous, Once, On Sat09/15/25 at 1708, For 1 dose Given 09/15/2025 5:13 PM EST 10 mL sodium chloride 0.9 % flush 10 mL 10 mL, intravenous, 2 times daily, First dose on Sat09/15/25 at 2100 Given 09/24/2025 9:10 AM EST 10 mL Given 09/23/2025 9:48 PM EST 10 mL Given 09/23/2025 9:38 AM EST 10 mL sodium chloride 0.9 % flush 10 mL 10 mL, intravenous, As needed, line care, Starting on Sat09/15/25 at 1921 Given 09/22/2025 10:54 AM EST 10 mL sodium chloride 0.9 % flush 10 mL 10 mL, intravenous, Once, On Sat09/22/25 at 1115, For 1 dose Given 09/22/2025 8:46 PM EST 10 mL sodium chloride 0.9 % with KCl 40 mEq/L infusion 75 mL/hr, intravenous, Continuous, Starting on 09/18/25 at 1345, For 1 day New Bag 09/19/2025 5:55 AM EST 75 mL/hr 75 mL/hr New Bag 09/18/2025 5:25 PM EST 75 mL/hr 75 mL/hr vancomycin (VANCOCIN) 1,000 mg in sodium chloride 0.9 % 250 mL IVPB 1,000 mg, intravenous, at 250 mL/hr, Administer over 60 Minutes, Every 24 hours, First dose on Sat09/21/25 at 1600, For 14 days, Indication: Bacteremia New Bag 09/22/2025 5:47 PM EST 1,000 mg 250 mL/hr New Bag 09/21/2025 5:05 PM EST 1,000 mg 250 mL/hr vancomycin (VANCOCIN) IVPB 1,250 mg in 0.9 % sodium chloride 250 mL - CNR 1,250 mg (rounded from 1,190 mg = 25 mg/kg 47.6 kg), intravenous, at 166.7 mL/hr, Administer over 90 Minutes, Once, On Sat09/15/25 at 1825, For 1 dose, Indication: Pneumonia, Community Acquired New Bag 09/15/2025 8:46 PM EST 1,250 mg 166.7 mL/hr zinc sulfate (ZINCATE) capsule 220 mg 220 mg, oral, Daily, First dose on Sat09/18/25 at 1745, For 8 doses, Ordered as zinc sulfate. 220 mg zinc sulfate = 50 mg elemental zinc. Given 09/24/2025 9:09 AM EST 220 mg Given 09/23/2025 9:36 AM EST 220 mg Given 09/22/2025 9:37 AM EST 220 mg documented in this encounter Discontinued Medications Medication Sig Discontinue Reason Start Date End Da te doxycycline (MONODOX) 100 mg capsule Take 1 capsule (100 mg total) by mouth 2 (two) times a day for 1 dose. Take with at least 8 ounces (large glass) of water, do not lie down for 30 minutes after Stop Taking at Discharge 09/24/2025 09/24/2025 metoprolol succinate (TOPROL-XL) 50 mg 24 hr tablet Take 2 tablets (100 mg total) by mouth 1 (one) time each day. Stop Taking at Discharge 11/04/2024 09/24/2025 furosemide (LASIX) 20 mg tablet Take 1 tablet (20 mg total) by mouth 1 (one) time each day. Stop Taking at Discharge 09/24/2025 documented as of this encounter Historical Medications * This list may reflect changes made after this encounter. apixaban (ELIQUIS) 2.5 mg tabletIndications :hip surgery deep vein thrombosis prevention Take 1 tablet (2.5 mg total) by mouth 2 (two) times a day. furosemide (LASIX) 20 mg tablet Take 1 tablet (20 mg total) by mouth 1 (one) time each day. 09/24/2025 added in this encounter Active and Recently Administered Medications Times are shown in EST. Scheduled Medication Order 09/22/2025 09/23/2025 09/24/2025 apixaban (ELIQUIS) tablet 2.5 mg 2.5 mg, oral, 2 times daily, First dose on Sat09/15/25 at 2243, Indication: VTE/PE Prophylaxis, Indications: hip surgery deep vein thrombosis prevention 0937 (Given - Provider: Charli Kendrick RN)2041 (Given - Provider: Santos Camacho RN) 0936 (Given - Provider: Luba Goldman RN)2147 (Given - Provider: Kasey Neri RN) 0909 (Given - Provider: Ana Mcclure RN) ascorbic acid (VITAMIN C) tablet 250 mg 250 mg, oral, Daily, First dose on Sat09/18/25 at 1745, For 14 doses 0933 (Given - Provider: Charli Kendrick RN) 0936 (Given - Provider: Luba Goldman RN) 0909 (Given - Provider: Ana Mcclure RN) cefTRIAXone (ROCEPHIN) 2 g in sterile water 20 mL IV syringe (CANCELED) 2 g, intravenous, Administer over 3 Minutes, Every 24 hours, First dose on Sat09/21/25 at 1545, For 7 days, Do not administer simultaneously with any calcium containing solutions via a Y-site in any patient., Indication: Bacteremia 1607 (Given - Provider: Charli Kendrick RN) collagenase (SANTYL) 250 unit/gram ointment Topical, Daily, First dose on Sat09/17/25 at 1245, Apply to sacrum Application of ointment should be approximately 2 mm thick. 0900 (Canceled Entry - Provider: Automatic Discharge Provider - Comment: Automatically canceled at discontinue of medication order) 0936 (Given - Provider: Ana Mcclure RN) 0908 (Given - Provider: Ana Mcclure RN) dorzolamide (TRUSOPT) 2 % ophthalmic solution 1 drop 1 drop, Both Eyes, 3 times daily, First dose on Sat09/15/25 at 2243 0936 (Given - Provider: Cahrli Kendrick RN)1335 (Given - Provider: Charli Kendrick RN)2045 (Given - Provider: Santos Camacho RN) 0937 (Given - Provider: Luba Goldman, FREDERICK)1600 (Given - Provider: Ana Mcclure, FREDERICK)2156 (Given - Provider: Kasey Neri RN) 0908 (Given - Provider: Ana Mcclure, FREDERICK)1509 (Given - Provider: Ana Mcclure, RN) gabapentin (NEURONTIN) capsule 200 mg 200 mg, oral, Nightly, First dose on Sat09/16/25 at 2100 2041 (Given - Provider: Santos Camacho RN) 2147 (Given - Provider: Kasey Neri RN) iopamidoL (ISOVUE-370) 370 mg iodine /mL (76 %) injection 90 mL (COMPLETED) 90 mL, intravenous, Once in imaging, Starting on Sat09/22/25 at 1051, For 1 dose 1055 (Given - Provider: Norma Mejía) lidocaine 4 % patch 1 patch 1 patch, Topical, Administer over 12 Hours, Daily, First dose on Sat09/15/25 at 1901, Apply to left leg. 1821 (Patch Applied - Provider: Charli Kendrick RN - Comment: Medial back, right conroy, right chest) 0704 (Patch Removed - Provider: Santos Camacho RN)0936 (Patch Applied - Provider: Luba Goldman RN - Comment: pt likes on legs and feet)2228 (Patch Removed - Provider: Kasey Neri RN) 0908 (Patch Applied - Provider: Ana Mcclure, FREDERICK)1831 (Due: Patch Removed - Provider: Automatic Discharge Provider - Comment: Time automatically adjusted from order being discontinued) magnesium oxide (MAG-OX) tablet 400 mg 400 mg, oral, Daily, First dose on Sat09/22/25 at 2315 2317 (Given - Provider: Santos Camacho RN) 0909 (Given - Provider: Ana Mcclure RN) metoprolol succinate (TOPROL-XL) 24 Hour tablet 50 mg 50 mg, oral, Daily, First dose (after last modification) on Sat09/21/25 at 0900, Hold if sbp < 100 Do not crush or chew. 0934 (Given - Provider: Charli Kendrick RN) 0936 (Given - Provider: Luba Goldman, RN) 0908 (Given - Provider: Ana Mcclure, RN) micafungin (MYCAMINE) 100 mg in sodium chloride 0.9 % 100 mL IVPB 100 mg, intravenous, at 100 mL/hr, Administer over 60 Minutes, Every 24 hours, First dose on Sat09/21/25 at 1530, For 14 days, Indication: Candidiasis, Authorizing ID: Infectious Disease Physician/Fellow 1600 (New Bag - Provider: Charli Kendrick RN)1730 (Stopped - Provider: Charli Kendrick RN) 1601 (New Bag - Provider: Ana Mcclure, RN)1705 (Stopped - Provider: Ana Mcclure, RN) 1512 (New Bag - Provider: Ana Mcclure, RN)1615 (Stopped - Provider: Ana Mcclure, FREDERICK) pantoprazole (PROTONIX) injection 40 mg 40 mg, intravenous, Administer over 2 Minutes, Every 12 hours scheduled, First dose on Sat09/17/25 at 0900, Pantroprazole - IV push: Reconstitute powder for injection with 10 mL NS; final concentration: 4 mg/mL., Indication for IV Push Pantoprazole? EGD evidence of PUD with stigmata or Upper G.I. Bleed 0936 (Given - Provider: Charli Kendrick RN)2041 (Given - Provider: Santos Camacho RN) 0936 (Given - Provider: Luba Goldman, FREDERICK)2145 (Given - Provider: Kasey Neri, FREDERICK) 0908 (Given - Provider: Ana Mcclure, FREDERICK) PATIENT OWN'S MED: Ambrisentan (LETAIRIS) tablet 5 mg 5 mg, oral, Daily, First dose on Sat09/16/25 at 2100, Hazardous Medication Intact: - Single pair of ASTM standard [id number] certified gloves - Eye/face protection if vomit or potential to spit up - Do NOT split, crush, or open dosage units, Drug Name: Letairis, Form: tablet, Length of Therapy: Indefinite, How soon needed? (normally 72 hrs needed to procure): 0-24 hrs, Reason for Non-Formulary: Alternative unavailable 2046 (Not Given - Provider: Santos Camacho RN - Reason: Other - Comment: med not availble) 2155 (Given - Provider: Kasey Neri, RN) PATIENT'S OWN MED: Treprostinil diolamine (ORENITRAM) ER tablet 1 mg 3 mg, oral, 3 times daily, First dose on Sat09/16/25 at 1130, Patient's own med: Treprostinil diolamine (ORENITRAM) ER tablet 1 mg Take 3 mg (3 x 1 mg tablets) three times a day Do not crush, chew, or split. 0850 (Not Given - Provider: Charli Kendrick RN - Reason: Medication not available - Comment: patient unable to provide home med)1435 (Not Given - Provider: Charli Kendrick RN - Reason: Medication not available - Comment: need med to come from home)2042 (Given - Provider: Santos Camacho RN) 0957 (Given - Provider: Luba Goldman RN)1600 (Given - Provider: Ana Mcclure, FREDERICK)2156 (Given - Provider: Kasey Neri, RN) 0910 (Given - Provider: Ana Mcclure, RN)151 (Given - Provider: Ana Mcclure, FREDERICK) polyethylene glycol (MIRALAX) packet 17 g 17 g, oral, Nightly, First dose on Sat09/15/25 at 2100, Bowel Regimen - for prevention of constipation 2046 (Not Given - Provider: Santos Camacho RN - Reason: Patient/Resident/Agent refused - education provided ) 2147 (Not Given - Provider: Kasey Neri, RN - Reason: Patient/Resident/Ag ent refused - education provided ) QUEtiapine (SEROquel) tablet 25 mg 25 mg, oral, Nightly, First dose on Sat09/16/25 at 2100 2041 (Given - Provider: Santos Camacho RN) 2146 (Given - Provider: Kasey Neri, RN) sildenafil (REVATIO) tablet 20 mg 20 mg, oral, 3 times daily, First dose on Sat09/15/25 at 2243 0934 (Given - Provider: Charli Kendrick RN)1333 (Given - Provider: Charli Kendrick RN)204 (Given - Provider: Santos Camacho, RN) 0936 (Given - Provider: Luba Goldman, RN)1601 (Given - Provider: Ana Mcclure, RN)214 (Given - Provider: Kasey Neri, RN) 0909 (Given - Provider: Ana Mcclure, RN)1509 (Given - Provider: Ana Mcclure, RN) sodium chloride 0.9 % flush 10 mL(Linked Group 1) 10 mL, intravenous, 2 times daily, First dose on Sat09/15/25 at 2100 0936 (Given - Provider: Charli Kendrick RN)2045 (Given - Provider: Santos Camacho, RN) 0938 (Given - Provider: Luba Goldman, RN)214 (Given - Provider: Kasey Neri, RN) 0910 (Given - Provider: Ana Mcclure, RN) sodium chloride 0.9 % flush 10 mL (COMPLETED) 10 mL, intravenous, Once, On Sat09/22/25 at 1115, For 1 dose 2045 (Given - Provider: Santos Camacho RN) vancomycin (VANCOCIN) 1,000 mg in sodium chloride 0.9 % 250 mL IVPB (CANCELED) 1,000 mg, intravenous, at 250 mL/hr, Administer over 60 Minutes, Every 24 hours, First dose on Sat09/21/25 at 1600, For 14 days, Indication: Bacteremia 1747 (New Bag - Provider: Charli Kendrick RN - Comment: only 1 iv site)1900 (Stopped - Provider: Charli Kendrick RN) zinc sulfate (ZINCATE) capsule 220 mg 220 mg, oral, Daily, First dose on Sat09/18/25 at 1745, For 8 doses, Ordered as zinc sulfate. 220 mg zinc sulfate = 50 mg elemental zinc. 0937 (Given - Provider: Charli Kendrick RN) 0936 (Given - Provider: Luba Goldman, RN) 0909 (Given - Provider: Ana Mcclure, FREDERICK) PRN Medication Order 09/22/2025 09/23/2025 09/24/2025 acetaminophen (TYLENOL) tablet 650 mg 650 mg, oral, Every 6 hours PRN, mild pain, fever - temperature GREATER than 38 C (100.4 F), Starting on Sat09/15/25 at 1921 0937 (Given - Provider: Luba Goldman, RN) HYDROmorphone (DILAUDID) injection 0.5 mg 0.5 mg, intravenous, Every 3 hours PRN, breakthrough pain, Starting on 09/18/25 at 1321 0325 (Given - Provider: Santos Camacho, RN)1608 (Given - Provider: Charli Kendrick, RN) 0527 (Given - Provider: Santos Camacho RN)0937 (Given - Provider: Luba Goldman RN)1645 (Given - Provider: Luba Goldman RN)2155 (Given - Provider: Kasey Neri, FREDERICK) ondansetron (PF) (ZOFRAN) injection 4 mg 4 mg, intravenous, Every 6 hours PRN, vomiting, nausea, Starting on Sat09/15/25 at 1921, -ONLY give IV if patient is unable to take orally. -If inadequate response within 30 minutes, proceed to next-line agent or contact provider if no further options ordered. 2325 (Given - Provider: Santos Camacho RN) oxyCODONE (ROXICODONE) immediate release tablet 5 mg 5 mg, oral, Every 6 hours PRN, severe pain, Starting on Kandice 09/16/25 at 0849 1332 (Given - Provider: Charli Kendrick, FREDERICK) 0909 (Given - Provider: Ana Mcclure, FREDERICK)1509 (Given - Provider: Ana Mcclure, RN) sodium chloride 0.9 % flush 10 mL(Linked Group 1) 10 mL, intravenous, As needed, line care, Starting on Sat09/15/25 at 1921 1054 (Given - Provider: Norma Mejía) Linked Groups Order Group 1: Insert peripheral IV (COMPLETED) STAT, Once, On Sat09/15/25 at 1922, For 1 occurrence And Maintain IV access (CANCELED) Until discontinued, Starting on Sat09/15/25 at 192, Until Specified And Saline lock IV (COMPLETED) Routine, Once, On Sat09/15/25 at 192, For 1 occurrence And sodium chloride 0.9 % flush 10 mLJump to med 10 mL, intravenous, 2 times daily, First dose on Sat09/15/25 at 2100 And sodium chloride 0.9 % flush 10 mLJump to med 10 mL, intravenous, As needed, line care, Starting on Sat09/15/25 at 1921 documented in this encounter Orders Medications Ordered That Gamal ht Not Have Been Administered Count Last Ordered Date First Ordered Date fluconazole (DIFLUCAN) tablet 400 mg 1 11/2024 furosemide (LASIX) tablet 20 mg 1 vancomycin (VANCOCIN) 500 mg in sodium chloride 0.9 % 100 mL IVPB 1 09/15/2025 Consult Count Last Ordered Date First Orde red Date IP CONSULT TO IV TEAM 1 09/23/2025 IP CONSULT TO CARDIOLOGY 1 09/22/2025 IP CONSULT TO INFECTIOUS DISEASES 1 025 IP CONSULT TO NEPHROLOGY 1 09/19/2025 IP CONSULT TO GASTROENTEROLOGY 1 09/16/2025 IP CONSULT TO NUTRITION SERVICES 1 09/16/20 WOUND CARE INPATIENT FOLLOW-UP 1 09/15/2025 [facility]ION ANALYST Count Last Ordered Date First Orde red Date [employer]ION ANALYST EVAL AND TREAT 2 09/16/2025 IV Count Last Ordered Date First Orde red Date INSERT PERIPHERAL IV 2 09/15/2025 SALINE LOCK IV 1 09/15/2025 Admission Count Last Ordered Date First Orde red Date ADMIT TO INPATIENT 1 09/15/2025 Transfer Count Last Ordered Date First Orde red Date TRANSFER PATIENT TO NEW UNIT 1 09/20/2025 ED TO FLOOR BED REQUEST 1 09/15/2025 Discharge Count Last Ordered Date First Orde red Date DISCHARGE PATIENT 1 09/24/2025 documented in this encounter Care Teams Corporate Development Analyst Relationship Specialty Start Date End Date Jermaine Lazaro MD [address] [place] [address] PCP - General Circus Rider 02/06/22 documented as of this encounter
--- OUTSIDE RECORDS SUMMARY | 2025-09-20 07:52 | XMS_ITS | Encounter Summary ---
Author Organization [facility] Address [address] [place] [address] Care Team Providers Care Sewing Demonstrator Name Role Phone Jermaine Lazaro MD Primary Care Provider [phone] Reason for Visit * Auth/Cert (Routine) Specialty Diagnoses / Procedures Referred By Andreas card Referred To Contact Diagnoses SOB (shortness of breath) Pleural effusion Leg swelling Fluid overload Pneumonia of left lung due to infectious organism, unspecified part of lung Congestive heart failure, unspecified HF chronicity, unspecified heart failure type (CMS/HCC V24, CMS/HCC V28) Procedures / Cristhian Montoya MD [address] [place] [id number] Phone: tel: fax: [facility] [address] [place] [address] Phone: tel: Referral ID Status Reason Start Date Expiration Date Visits Re quested Visits Authorized [id number] 1 1 Encounter Details Date Type Department Care Team (Late st Contact Info) Description 09/20/2025 7:52 AM EST Anesthesia Event [facility] Endoscopy [address] [place] [address] Ivy Contreras MD [address] [place] [address] Cosme Barros, KNOTTER [address] [place] [address] Anesthesia Record Procedure Summary Procedure Name Responsible Anesthesiologist Anesthesia Start Time Anesthesia Stop Time JOHND Ivy Contreras MD 09/20/25 0752 11/14 0810 Events Date Time Event Comment 09/20/2025 0752 An Start 0752 An Start Data The patient wa s reevaluated immediately before moderate or deep sedation use and before anesthesia induction. 0752 In Room 0754 0756 Anesthesia Ready 0806 an stop data 0807 Out of Room 0810 Handoff to RN I completed my handoff to the receiving nurse during which we: 1. Identified the patient 2. Identified the responsible provider 3. Reviewed the pertinent medical history 4. Discussed the surgical course 5. Reviewed intra-op anesthesia management and issues during anesthesia 6. Set expectations for post-procedure period 7. Allowed opportunity for questions and acknowledgement of understanding. 0810 An Stop Meds Name Total propofol (DIPRIVAN) injection 10 mg/mL 8 0 mg lidocaine PF (XYLOCAINE-MPF) local injec tion 2% 60 mg lactated Ringer's infusion 100 mL * Agents Name O2 * Blood No blood administrations on file. Lines, Drains, and Airways Type Details Placement Removal Implantable Port Single Lumen 08/14/23; 1020; Left; Chest; ABIGAIL COLUNGA MD; Chest 08/14/23 1020 by Vivian Morrow RN Colostomy (unknown); LLQ; Brow n; Soft 09/15/25 2233 by External Urinary Catheter 09/16/25; 1025 1025 by Ana Mcclure RN Wound Pressure inj; ; 1039; Y; Yes; Sacrum 09/16/25 1039 by Ana Mcclure RN Wound Pressure inj; ; 1040; Y; Yes; Buttocks; Right 09/16/25 1040 by Ana Mcclure RN Wound Pressure inj; ; 1113; Y; Heel; Left 09/17/25 1113 by Tatyana Parada RN documented in this encounter Social History Tobacco Use Types Packs/Day Years [...] PM EST documented as of this encounter Progress Notes * Cosme Barros CRNA - 09/20/2025 8:07 AM EST Patient: Iwona Romero Procedure Summary Date: 09/20/25 Room / Location: [facility]oscopy Anesthesia Start: 751 Anesthesia Stop: Procedure: EGD Diagnosis: Achalasia Scheduled Providers: Caitlin Birmingham MD; Ivy Contreras MD Responsible Provider: Ivy Contreras MD Anesthesia Type: MAC ASA Status: 4 - Emergent Anesthesia Plan: MAC Last Vitals: Vitals Value Taken Time BP 94/31 09/20/25 08:07 Temp 36 09/20/25 08:07 Pulse 81 09/20/25 08:07 Resp 15 09/20/25 08:07 SpO2 97 09/20/25 08:07 Pain Score: 5 - Moderate pain Anesthesia Post Evaluation Patient location during evaluation: PACU Patient participation: complete - patient participated Level of consciousness: awake and alert Pain score: 0 Pain management: adequate Airway patency: patent Anesthetic complications: no Cardiovascular status: acceptable and hemodynamically stable Respiratory status: acceptable and face mask Hydration status: acceptable Nausea: No Vomiting: No No notable events documented. * Ivy Contreras MD - 09/20/2025 7:35 AM EST Reviewed chart Spoke with Dr. Birmingham -re aspir risk Clear fluids for past four days No sxs of regurg, abd fullness Discussed increased resp risk from underlying medical problems Relevant Problems Cardio (+) Congestive heart failure (CHF) (CMS/HCC V24, CMS/HCC V28) (+) Essential hypertension (+) Primary pulmonary hypertension (CMS/HCC V24, CMS/HCC V28) (+) Pulmonary hypertension (CMS/HCC V24, CMS/HCC V28) Pulmonary (+) Recurrent aspiration pneumonia (CMS/HCC V24, CMS/HCC V28) Endo (+) Hypothyroidism Other (+) Aplastic anemia, unspecified (CMS/[facility] V24) (+) Iron deficiency anemia due to chronic blood loss (+) Myeloid dysplasia (CMS/HCC V24, CMS/HCC V28) (+) Normocytic anemia (+) Osteoarthritis of first carpometacarpal joint of left hand (+) Osteoarthritis of left knee Clinical information reviewed: Tobacco Allergies Meds Med Hx Surg Hx OB Status Fam Hx Soc Hx Anesthesia Plan ASA 4 - emergent Anesthesia Plan: MAC Comment: (spoke with pt re increased resp risk) Anesthesia Risks Discussed serious complications Induction method: intravenous Anesthetic plan and risks discussed with patient. Anesthesia Plan discussed with attending. Reviewed chart Anesthesia Evaluation Airway Mallampati: IV Thyromental distance: > 3 finger breadths Neck ROM: limited Dental - normal exam Pulmonary (+) pneumonia, decreased breath sounds (-) wheezesCOPD: recurrent aspiration, pulm hypertension. ROS comment: Multiple aspiration pneumoniaas PAH nonambulatory Cardiovascular (+) hypertension, valvular problems/murmurs (severe mitral stenosis), CHF, murmur Rhythm: regular Rate: normal Neuro/Psych (+) neuromuscular disease Mental Status: alert and oriented GI/Hepatic/Renal (+) GERD, chronic renal disease CRI Endo/Other (+) hypothyroidism Abdominal PONV RISK SCORE: 3 Vitals: 09/19/25 1954 09/19/25 2309 09/20/25 0337 09/20/25 0541 BP: (!) 123/44 (!) 115/48 (!) 109/47 BP Location: Left arm Right arm Patient Position: Lying Lying Pulse: 76 84 69 Resp: 16 16 Temp: 35.8 ??C (96.4 ??F) 36.1 ??C (97 ??F) 36.3 ??C (97.3 ??F) TempSrc: Temporal Oral SpO2: 90% 93% Weight: 56.6 kg (124 lb 12.8 oz) Height: SpO2 Readings from Last 1 Encounters: 09/20/25 93% WBC Date Value Ref Range Status 09/20/2025 5.4 4.8 - 10.8 K/mcL Final RBC Date Value Ref Range Status 09/20/2025 3.00 (L) 3.80 - 4.80 M/mcL Final Hemoglobin Date Value Ref Range Status 09/20/2025 9.3 (L) 11.5 - 16.0 g/dL Final Hematocrit Date Value Ref Range Status 09/20/2025 31.1 (L) 35.0 - 47.0 % Final Platelets Date Value Ref Range Status 09/20/2025 174 130 - 400 K/mcL Final MCV Date Value Ref Range Status 09/20/2025 103.0 (H) 79.0 - 98.0 FL Final Allergies[1] STOP BANG: No data recorded NPO Status: No data recorded [1] Allergies Allergen Reactions Epinephrine Other Other reaction(s): extreme shaking, shake Violent shaking rigor Bee Venom Protein (Honey Bee) Swelling Cyclosporine Other reaction(s): eyes swell shut, Other (see comments) Other reaction(s): eyes swell shut Mushroom Nausea And Vomiting Niacin Rash documented in this encounter Plan of Treatment Upcoming Encounters Date Type Department Care Team (Late st Contact Info) Description 01/24/2026 10:30 AM EDT Office Visit [facility] Hematology Oncology [address] [place] [address] Marilee Rahman MD [address] [place] [address] documented as of this encounter Goals Goal Patient Goal Type Associated Problems Recent Progress Patient-Stated? Author Autogenerat ed Goal Care Plan Autogenerated Problem No Christin Kent RN documented as of this encounter Visit Diagnoses Not on filedocumented in this encounter Administered Medications Inactive Administered Medications - up to 3 most recent administrations Medication Order MAR Action Action Date Dose Rate Site lactated Ringer's infusion intravenous, Continuous PRN, Starting on Sat09/20/25 at 0752, Anesthesia Intraprocedure New Bag 09/20/2025 7:52 AM EST lidocaine (PF) (XYLOCAINE-MPF) 2 % injection injection, As needed, Starting on Sat09/20/25 at 0800, Anesthesia Intraprocedure Given 09/20/2025 8:00 AM EST 60 mg propofoL (DIPRIVAN) injection intravenous, As needed, Starting on Sat09/20/25 at 0800, Anesthesia Intraprocedure Given 09/20/2025 8:03 AM EST 20 mg Given 09/20/2025 8:00 AM EST 60 mg documented in this encounter Additional Health Concerns Active Problems Noted Date Diagnosed Date Autogenerated Problem 09/20/2025 documented as of this encounter Care Teams Sewing Demonstrator Relationship Specialty Start Date End Date Jermaine Lazaro MD [address] [place] [id number] PCP - General Master Control Engineer 02/06/22 documented as of this encounter
--- OUTSIDE RECORDS SUMMARY | 2025-09-23 11:08 | XMS_ITS | Encounter Summary ---
Author Organization [facility] Address [address] [place] [address] Care Team Providers Care Inflated Pad Buffer Name Role Phone Jermaine Lazaro MD Primary Care Provider [phone] Reason for Visit * Auth/Cert (Routine) Specialty Diagnoses / Procedures Referred By Andreas card Referred To Contact Diagnoses SOB (shortness of breath) Pleural effusion Leg swelling Fluid overload Pneumonia of left lung due to infectious organism, unspecified part of lung Congestive heart failure, unspecified HF chronicity, unspecified heart failure type (CMS/HCC V24, CMS/HCC V28) Procedures / Cristhian Montoya MD [address] [place] [phone] Phone: tel: fax: [facility] [address] [place] [address] Phone: tel: Referral ID Status Reason Start Date Expiration Date Visits Re quested Visits Authorized [id number] 1 1 Encounter Details Date Type Department Care Team (Late st Contact Info) Description 09/23/2025 11:08 AM EST Anesthesia Event [facility] Non-Invasive Cardiology [address] [place] [address] Randal Osullivan, [address] [place] [address] Anesthesia Record Procedure Summary Procedure Name Responsible Anesthesiologist Anesthesia Start Time Anesthesia Stop Time TRANSESOPHAGEAL ECHOCARDIOGRAM (CONTRAST PRN) W/ POSSIBLE CARDIOVERSION Randal Osullivan, DO 09/23/25 1108 09/23/25 1132 Events Date Time Event Comment 09/23/2025 1058 1108 An Start 1108 An Start Data The patient wa s reevaluated immediately before moderate or deep sedation use and before anesthesia induction. 1113 Anesthesia Ready 1130 an stop data 1132 Handoff to RN I completed my handoff to the receiving nurse during which we: 1. Identified the patient 2. Identified the responsible provider 3. Reviewed the pertinent medical history 4. Discussed the surgical course 5. Reviewed intra-op anesthesia management and issues during anesthesia 6. Set expectations for post-procedure period 7. Allowed opportunity for questions and acknowledgement of understanding. 1132 An Stop Meds Name Total propofol (DIPRIVAN) injection 10 mg/mL 4 0 mg vasopressin (VASOSTRICT) injection 2 Uni ts lactated Ringer's infusion 200 mL * Agents No agents on file. * Blood No blood administrations on file. [...] for your loved ones. 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 Scheduled Providers: Briana Mix MD Responsible Provider: Randal Osullivan DO Anesthesia Type: MAC ASA Status: 4 Anesthesia Plan: MAC Last Vitals: Vitals Value Taken Time BP 139/70 09/23/25 11:32 Temp na 09/23/25 11:32 Pulse 73 09/23/25 11:32 Resp 18 09/23/25 11:32 SpO2 100 09/23/25 11:32 Pain Score: 8 Anesthesia Post Evaluation Patient location during evaluation: PACU Patient participation: complete - patient participated Level of consciousness: awake and alert Pain score: 0 Pain management: adequate Airway patency: patent Anesthetic complications: no Cardiovascular status: acceptable Respiratory status: acceptable Hydration status: acceptable Nausea: No Vomiting: No There were no known notable events for this encounter. * Randal Osullivan DO - 09/23/2025 10:48 AM EST Relevant Problems Cardio (+) Congestive heart failure (CHF) (CMS/HCC V24, CMS/HCC V28) (+) Essential hypertension (+) Primary pulmonary hypertension (CMS/HCC V24, CMS/HCC V28) (+) Pulmonary hypertension (CMS/HCC V24, CMS/HCC V28) Pulmonary (+) Recurrent aspiration pneumonia (CMS/HCC V24, CMS/HCC V28) Endo (+) Hypothyroidism Other (+) Aplastic anemia, unspecified (CMS/HCC V24) (+) Iron deficiency anemia due to chronic blood loss (+) Myeloid dysplasia (CMS/HCC V24, CMS/HCC V28) (+) Normocytic anemia (+) Osteoarthritis of first carpometacarpal joint of left hand (+) Osteoarthritis of left knee Clinical information reviewed: Tobacco Allergies Meds Med Hx Surg Hx OB Status Fam Hx Soc Hx Anesthesia Plan ASA 4 Anesthesia Plan: MAC Comment: (spoke with pt re increased resp risk) Anesthesia Risks Discussed serious complications Plan Factors Patient is not a current smoker Induction method: intravenous Anesthetic plan and risks discussed with patient. Anesthesia Plan discussed with attending. Reviewed chart Anesthesia Evaluation Patient summary reviewed and Nursing notes reviewed Airway Mallampati: IV Thyromental distance: > 3 finger breadths Neck ROM: limited Dental - normal exam Pulmonary (+) pneumonia (aspiration PNA this admission), decreased breath sounds (-) wheezesCOPD: recurrent aspiration, pulm hypertension. ROS comment: Multiple aspiration pneumoniaas PAH Nonambulatory CT Chest IMPRESSION: 1. There is no evidence of pulmonary artery embolism. 2. There is generalized increased fluid status with [id number] bilateral pleural effusions, moderate ascites, a small pericardial effusion and edema of the soft tissues. 3. Opacities within the left lower lobe may be secondary to atelectasis or pneumonia. 4. Markedly dilated esophagus containing debris. Suspect achalasia. Cardiovascular Exercise tolerance: poor (+) hypertension, valvular problems/murmurs (severe mitral stenosis), CHF, murmur Rhythm: regular Rate: normal ROS comment: TTE 08/2025: ?? Technically difficult study. ?? Left Ventricle: There is severe concentric hypertrophy. Systolic function is hyperdynamic with an ejection fraction over 70%. LV global longitudal strain is normal. Global longitudinal strain is -22.3%. There are no regional LV wall motion abnormalities. ?? Left ventricle: There is moderate mid-cavity gradient of 52 mmHg at rest with no significant change with Valsalva. ?? Aortic Valve: There is moderate stenosis. ?? Aortic valve: In some of the parasternal views, there is evidence of an echodensity associated to the LVOT side of the aortic valve. This could represent a calcification. However, a vegetation cannot be completely ruled out with the available images. Consider further evaluation with blood cultures and/or a SERGIO if clinically indicated. ?? Mitral Valve: There is severe stenosis, with a mean gradient of 11 mmHg. ?? Pericardium: There is a small circumferential pericardial effusion. There is no echocardiographic evidence of tamponade. ?? There is a left pleural effusion. 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 Abdominal (-) obese PONV RISK SCORE: 3 Vitals: 09/22/25 1546 09/22/25 2019 09/23/25 0410 09/23/25 0806 BP: 121/68 (!) 126/49 100/77 (!) 99/45 BP Location: Right arm Patient Position: Lying Pulse: 100 (!) 32 101 Resp: 18 17 18 Temp: 36.4 ??C (97.6 ??F) 36.2 ??C (97.2 ??F) 36.7 ??C (98.1 ??F) 36.4 ??C (97.6 ??F) TempSrc: Temporal SpO2: 98% 91% (!) 82% 93% Weight: Height: SpO2 Readings from Last 1 Encounters: 09/23/25 93% WBC Date Value Ref Range Status 09/23/2025 9.6 4.8 - 10.8 K/mcL Final RBC Date Value Ref Range Status 09/23/2025 3.20 (L) 3.80 - 4.80 M/mcL Final Hemoglobin Date Value Ref Range Status 09/23/2025 9.7 (L) 11.5 - 16.0 g/dL Final Hematocrit Date Value Ref Range Status 09/23/2025 32.0 (L) 35.0 - 47.0 % Final Platelets Date Value Ref Range Status 09/23/2025 287 130 - 400 K/mcL Final MCV Date Value Ref Range Status 09/23/2025 100.0 (H) 79.0 - 98.0 FL Final Allergies[1] [...] Description 01/24/2026 10:30 AM EDT Office Visit [facility] Hematology Oncology [address] [place] [phone] Mariele Rahman MD [address] [place] [address] documented as of this encounter Goals Goal [...] Ringer's infusion intravenous, Continuous PRN, Starting on Kandice 09/23/25 at 1112, Anesthesia Intraprocedure New Bag 09/23/2025 11:12 AM EST propofoL (DIPRIVAN) injection intravenous, As needed, Starting on Kandice 09/23/25 at 1113, Anesthesia Intraprocedure Given 09/23/2025 11:26 AM EST 5 mg Given 09/23/2025 11:20 AM EST 5 mg Given 09/23/2025 11:16 AM EST 10 mg vasopressin (VASOSTRICT) injection subcutaneous, As needed, Starting on Kandice 09/23/25 at 1113, Anesthesia Intraprocedure Given 09/23/2025 11:17 AM EST 1 Units Given 09/23/2025 11:13 AM EST 1 Units documented in this encounter Additional Health Concerns Active Problems Noted Date Diagnosed Date Autogenerated Problem 09/20/2025 documented as of this encounter Care Teams Inflated Pad Buffer Relationship Specialty Start Date End Date Jermaine Lazaro MD [address] [place] [address] PCP - General Caterers Helper 02/06/22 documented as of this encounter
--- NOTE | ~2025-09-25 | XR_ITS ---
CLINICAL HISTORY: weakness 1 view chest x-ray Comparison: None provided Findings: Diffuse interstitial prominence in both lungs. Small left pleural effusion concerning for pulmonary edema/fluid overload. Normal size heart. No acute fracture. IMPRESSION: Diffuse interstitial prominence in both lungs. Small left pleural effusion concerning for pulmonary edema/fluid overload. This document has been electronically signed by: Claudia Cowan MD on 09/25/2025 17:51:52
--- NOTE | ~2025-09-25 | XR_ITS ---
CLINICAL HISTORY: s p intubation 1 view chest x-ray Comparison: CR - XR CHEST 1V - 10/01/25 19:01 EST Findings: Layering bilateral pleural effusions. Ill-defined opacities in both infrahilar lungs. Heart size is normal. Left internal jugular injectable chest port. Right shoulder arthroplasty. No dislocation. Osteopenia. NG tube beyond the inferior margin of the exam. IMPRESSION: 1. ETT 4.5 cm above the agus. 2. Additional findings as above. This document has been electronically signed by: Clyde Pollard MD on 10/03/2025 00:56:51
--- NOTE | ~2025-09-25 | XR_ITS ---
EXAMINATION: XR CHEST CLINICAL INFORMATION: dyspnea COMPARISON: X-ray 09/25/2025 TECHNIQUE: Frontal view of the chest was obtained. FINDINGS: Rotated positioning. Mild prominence of the cardiac silhouette, accentuated by positioning. Left-sided port, the tip in the cavoatrial junction region. Overlying monitoring leads. Airspace opacities in the left mid and lower, retrocardiac region. Possible small left pleural effusion. No pneumothorax. Right shoulder arthroplasty. XR/XR chest 1V IMPRESSION: Airspace opacities in left mid and lower lung, can be seen with atelectasis, consolidation, sequela of aspiration. Possible small left pleural effusion. Recommend follow-up imaging to resolution. Electronically signed by: Bran Welsh MD 09/28/2025 12:33 PM [facility]
--- NOTE | ~2025-09-25 | XR_ITS ---
EXAMINATION: XR CHEST 1 VIEW HISTORY: NG tube placement COMPARISON: Comparison is made with the prior examination dated 10/03/2025. FINDINGS: A single AP portable view of the chest performed at 3:07 PM is submitted. A nasogastric tube is noted with its tip below the diaphragm. The sidehole is at the GE junction. A left-sided port is unchanged in position. Again seen is opacification of the left lung base, which may represent atelectasis, pneumonia, or pleural fluid. An opacity at the right lung base is again noted. There is no pneumothorax. The heart is normal in size. The aorta is calcified. There is degenerative disc disease of the spine. The patient is status post reverse right shoulder arthroplasty. XR/XR chest 1V IMPRESSION: 1. The tip of the nasogastric tube is below the diaphragm with the side hole at the GE junction. Advancement of the tube is recommended. 2. Opacification of the left lung base, compatible with atelectasis, pneumonia, or pleural fluid. Right lower lobe pneumonia. Electronically signed by: Bony Haywood MD 10/11/2025 03:20 PM [facility]
--- NOTE | ~2025-09-25 | CT_ITS ---
CLINICAL HISTORY: acute MS changes and aphagia CT head without contrast Comparison: None provided Findings: No intra-axial mass, midline shift, hydrocephalus, or acute hemorrhage. No significant atrophy-like change or white matter disease. There is no sinus or mastoid fluid. The orbits are unremarkable. No skull fracture. IMPRESSION: 1. No acute intracranial findings. This document has been electronically signed by: Dio Soto MD on 10/11/2025 21:13:00
--- NOTE | ~2025-09-25 | CT_ITS ---
CLINICAL HISTORY: hemorrhagic shock CT ABDOMEN AND PELVIS WITH CONTRAST COMPARISON: 09/28/2025. FINDINGS: Subcutaneous edema/anasarca is noted. Imdgqvaf-[id number] volume of ascites is noted within the abdomen/pelvis. Enteric tube is noted with tip terminating in the distal stomach. Stomach is not optimally distended which limits assessment. Liver has a mildly nodular contour, compatible with a cirrhotic morphology. Cholelithiasis is noted, for example seen on axial image 267. Pancreas is unremarkable. Subcentimeter low-attenuation lesion in the spleen is too small to characterize. Spleen is otherwise unremarkable. Thickening of the adrenal glands is noted. Kidneys are partially obscured by spinal fusion hardware involving the L4-L5 vertebral body levels. Kidneys are grossly unremarkable. No hydronephrosis. Back catheter is noted decompressing the urinary bladder. Calcified uterine fibroid is again noted, estimated to measure 1.4 cm on axial image 549 of series 14. Calcific plaque is noted in the abdominal aorta. No evidence of an abdominal aortic aneurysm or dissection. What is suspected to represent contrast refluxing within the portion of the superior aspect of the inferior mesenteric vein is noted on axial image 257. Alternatively this might be related to postoperative changes. Left-sided colostomy is again noted. No evidence of a bowel obstruction or free air. The colon is markedly underdistended. This precludes accurate assessment for wall thickening/colitis. No adenopathy. Left hip arthroplasty is again noted. Postoperative changes are suspected involving the soft tissues of the right posterior aspect of the pelvis, adjacent to the right aspect of the sacrum. Previously there was a large wound in this region. Small amount of soft tissue gas on axial image 562 is thought to be postoperative in nature. No definite aggressive lytic lesion or aggressive periosteal reaction. IMPRESSION: 1. Subcutaneous edema/anasarca is noted, along with a veqsnruj-ox-gsqyx amount of ascites in the abdomen/pelvis. 2. Cholelithiasis. 3. No hydronephrosis. 4. No evidence of a bowel obstruction or free air. 5. The colon is markedly underdistended which precludes accurate assessment. 6. Postoperative changes are suspected involving the soft tissues of the right posterior aspect of the pelvis, adjacent to the right aspect of the sacrum. Previously there was a large wound in this region. Small amount of soft tissue gas is noted which is thought to be postoperative in nature. 7. Additional findings are detailed above. This document has been electronically signed by: Beck Monsivais M.D. on 10/04/2025 03:44:51
--- NOTE | ~2025-09-25 | XR_ITS ---
CLINICAL HISTORY: chest pian 1 view chest x-ray Comparison: CR/SR - XR CHEST 1 VIEW - 09/28/25 12:20 EST Findings: Blunting of the costophrenic angles. Right basilar ground-glass opacity. Cardiomegaly. Left internal jugular approach MediPort with tip in the right atrium. Moderate to severe calcified atherosclerotic disease of the descending thoracic aorta. Moderate osteopenia. Prior right shoulder reverse arthroplasty. IMPRESSION: 1. Small bilateral pleural effusions. 2. Right lower lobe pneumonia. 3. Left internal jugular approach MediPort with tip in the right atrium. 4. Moderate to severe calcified atherosclerotic disease of the descending thoracic aorta. 5. Cardiomegaly. 6. Prior right shoulder reverse arthroplasty. This document has been electronically signed by: Adam Solo MD on 10/01/2025 19:41:17
--- NOTE | ~2025-09-25 | XR_ITS ---
CLINICAL HISTORY: And pain 1 view abdomen Comparison: None provided Findings: No pneumoperitoneum or pneumatosis. No significant fecal retention. Moderate gaseous distention of the stomach. No small bowel dilatation. There are severe vascular calcifications. Status post left hip replacement. Postsurgical changes of the lumbar spine. No acute fracture. There is contrast within the urinary bladder. IMPRESSION: 1. Moderate gaseous distention of the stomach. 2. Nonspecific bowel gas pattern without evidence of bowel obstruction. This document has been electronically signed by: Lindsay Moura MD on 10/02/2025 13:16:01
--- NOTE | ~2025-09-25 | CT_ITS ---
CLINICAL HISTORY: hemorrhagic shock CT CHEST WITH CONTRAST COMPARISON: None provided. FINDINGS: CT abdomen/pelvis will be reported separately. Examination is significantly limited due to motion/streak artifact. An endotracheal tube is noted with tip in satisfactory position. What is thought to represent a pH probe is noted terminating in the mid to distal esophagus. There is also an enteric tube noted coursing into the stomach. A left-sided port device is noted with tip terminating in the superior vena cava. No evidence of a pneumothorax or pneumomediastinum. Multifocal bilateral airspace disease is noted. This includes multifocal infiltrates, with some components noted to be ground-glass in appearance. There is also noted to be multiple areas of consolidation involving the left lower lobe. Compressive atelectasis is noted within the bilateral lower lobes, with small to moderate bilateral pleural effusions. Subcutaneous edema/anasarca is noted. Cardiomegaly is noted. Calcific plaque is noted in the coronary arteries and thoracic aorta. Thoracic aorta is partially obscured by motion/streak artifact but is normal in caliber without evidence of an aneurysm. No definite dissection. No adenopathy. Partially visualized are numerous bilateral thyroid nodules, for example measuring 1.1 cm in the left thyroid lobe on axial image 1 of series 6. Right shoulder arthroplasty is partially visualized. Bone windows demonstrate a fracture involving the sternum on sagittal image 80. This is suspected to be acute. No significant fracture displacement. IMPRESSION: 1. Tubes and lines, as detailed above. 2. Multifocal bilateral airspace disease is noted, along with small to moderate bilateral pleural effusions. 3. Cardiomegaly. 4. Numerous small bilateral thyroid nodules measuring up to 1.1 cm in size. 5. Sternum fracture of the sternum is noted, suspected to be acute. No significant fracture displacement. 6. Subcutaneous edema/anasarca is noted. 7. CT abdomen/pelvis will be reported separately. This document has been electronically signed by: Beck Monsivais M.D. on 10/04/2025 03:23:06
--- NOTE | ~2025-09-25 | CT_ITS ---
EXAMINATION: CT PELVIS WITH CONTRAST CLINICAL INFORMATION: Exposed coccyx in wound, assess for osteomyelitis. COMPARISON: None available. TECHNIQUE: Helical scanning was performed with submillimeter collimation through the pelvis during bolus intravenous injection of 100 mL of Omnipaque 350 intravenous contrast. Sagittal and coronal multiplanar 2-D reconstructions were obtained. This CT examination was performed using dose optimization techniques as appropriate, variously including the following: *Automated exposure control *Adjustment of mA and/or kV according to patient size (this includes techniques or standardized protocols for targeted exams where dose is matched to indication/reason for exam; i.e. extremities or head) *Use of iterative reconstruction technique FINDINGS: There appears to be a small amount of exposed sacral bones of the right inferior sacrum (series 2, image 29). There is a large sacral decubitus ulcer. No definite sacral erosive changes or permeative bone changes are identified. No periostitis or sclerosis is seen. Nevertheless, exposed bone highly suggest osteomyelitis. There are degenerative changes in the lower lumbar spine with a L4-5 fusion and disc prosthesis in place. Severe disc degeneration is present at L5-S1. There is a total left hip revision arthroplasty in place without definite complication evident. There is abundant streak artifact present. There is diffuse anasarca. There is moderate to large volume intraperitoneal ascites. There are degenerated fibroid tumors within a senescent uterus. No adnexal masses. The imaged small bowel loops appear somewhat thick-walled and edematous, most likely on the basis of low protein status. There are mesenteric varices present. The appendix is normal. The rectum is not seen, and there is a left lower quadrant colostomy in place. There is evidence for pelvic floor weakness. There is heavy atheromatous calcification of the arterial structures. CT/CT pelvis w IV con IMPRESSION: 1. Exposed sacral bone in the right inferior sacrum highly suggests osteomyelitis although no gross radiographic/CT changes are seen. There is a large sacral decubitus ulcer. 2. There is moderate to large volume intraperitoneal ascites with anasarca present. 3. Small bowel loops appear thick walled and edematous, most likely on the basis of low protein status. Enteritis is not excluded. There has been resection of the rectum and sigmoid colon. There is a left quadrant colostomy. 4. Additional ancillary findings as detailed above. Electronically signed by: Donell Christianson MD 09/28/2025 01:14 PM [facility]
--- NOTE | ~2025-09-25 | CT_ITS ---
CLINICAL HISTORY: agonal breathing Rapid response CT BRAIN WITHOUT CONTRAST COMPARISON: None provided. FINDINGS: There is mild parenchymal atrophy. There is no evidence of an acute infarct or intraparenchymal hemorrhage. Patchy areas of low attenuation are noted in the subcortical and periventricular regions of the supratentorial brain which are nonspecific but most likely represent chronic small vessel ischemic disease. There is no mass effect, midline shift, or extra-axial blood. The ventricles are normal in size without evidence of hydrocephalus. The bone windows are unremarkable. Air-fluid levels are noted in the sphenoid sinuses. Areas of mild subcutaneous edema/haziness are noted. IMPRESSION: 1. No acute disease in the brain. 2. Sphenoid sinus disease is noted. This document has been electronically signed by: Beck Monsivais M.D. on 10/04/2025 03:09:01
--- NOTE | ~2025-09-25 | US_ITS ---
CLINICAL HISTORY: stroke US Bilateral Carotid Duplex Comparison: None provided Findings: No significant plaque within the right common carotid artery. Mild plaque within the left common carotid artery. No significant plaque within the right carotid bulb. Mild plaque within the left carotid bulb. Color doppler and spectral tracings normal. Peak systolic velocities: Right CCA: 75.8 cm/s. Right proximal ICA: 93.2 cm/sec (normal) Max right ICA: 157 cm/s. ICA/CCA ratio: 2.1 ( at least 50% diameter reduction ) Right ECA: Unremarkable. Right vertebral artery flow antegrade. Left CCA: 105 cm/s. Left proximal ICA: 125 cm/sec ( 50-79% stenosis) Max left ICA: 150 cm/s. ICA/CCA ratio: 1.4 (normal) Left ECA: Unremarkable. Left vertebral artery flow antegrade. IMPRESSION: Right ICA/CCA ratio 2.1 (at least 50% diameter reduction ) Left proximal ICA 50-79% stenosis This document has been electronically signed by: Francisco Shelton MD on 10/11/2025 22:40:36
[2025-09-25 14:04] VITALS: BP 176/102; PULSE 80; O2SAT 99
[2025-09-25 14:08] VITALS: BP 177/69; PULSE 96; RESP 18; TEMP 36.6; O2SAT 94; BMI 23.4
--- OUTSIDE RECORDS SUMMARY | 2025-09-25 14:47 | XMS_ITS | Clinical Summary ---
Author Organization [facility] Address [address] [place] [address] Phone Care Team Providers Care Lock Technician Name Role Phone Jermaine Lazaro MD Primary Care Provider [phone] Allergies Active Allergy Reactions Criticality Noted Date Comments Bee Venom Protein (Honey Bee) Swelling Medium 11/09/2021 Cyclosporine Medium 01/08/2020 Other reaction(s): eyes swell shut, Other (see comments) Other reaction(s): eyes swell shut Epinephrine Other High 01/20/2018 Other reaction(s): extreme shaking, shake Violent shaking rigor Mushroom Nausea And Vomiting Medium 11/09/2021 Niacin Rash Low 06/28/2021 Medications alpha lipoic acid 300 mg capsule Take 300 mg by mouth every evening. Active alpha lipoic acid 600 mg capsule Take 600 mg by mouth. Active ambrisentan (LETAIRIS) 5 mg tablet Letairis 5 mg tablet 1 Active Vitamin C tablet Take 1 tablet (100 mg total) by mouth. Active brinzolamide (AZOPT) 1 % ophthalmic suspension Azopt 1 % eye drops,suspen rashi 1 Active carboxymethylcel lulose (REFRESH PLUS) 0.5 % ophthalmic solution 1 drop daily as needed. Active cod liver oiL oil Take by mouth. Active creatine 100 % powder powder by [employer].(Non-Dr ug; Combo Route) route. 1/4 tsp 2 times per day Active lidocaine-priloc domenica (EMLA) 2.5-2.5 % cream 3 Active saliva substitute combo no.9 (BIOTENE DRY MOUTH ORAL RINSE MM) Biotene Dry Mouth Oral Rinse Active vit A/vit C/vit E/zinc/copper (PRESERVISION AREDS ORAL) Take by mouth. Active naproxen sodium (ANAPROX) 220 mg tablet Take 1 tablet (220 mg total) by mouth as needed for pain. Active njgls-6-fcq-epa- dpa-fish oil ([place]-3 2100) 1,050 mg(300 mg -675 mg-75 mg) capsule Take 1 tablet by mouth. Active QUEtiapine (SEROquel) 25 mg tablet Take 1 split tablet (12.5 mg total) by mouth every night at bedtime. Active B2-magnesium cit,oxid-feverfe w 100-90-25 mg capsule Take by mouth. Active sildenafil (REVATIO) 20 mg tablet 3 Active treprostinil diolamine (ORENITRAM) 1 mg tablet extended release 3 mg 3 (three) times a day. Active COQ10, UBIQUINOL, ORAL Take 300 mg by mouth 1 (one) time each day. Active thiamine 100 mg tablet Vitamin B-1 Active ergocalciferol (VITAMIN D-2) 1,250 mcg (50,000 unit) capsule Take 10,000 mg by mouth 3 (three) times a week. Active gabapentin (NEURONTIN) 100 mg capsule Take 2 capsules (200 mg total) by mouth at bedtime. 4 Active Miebo, PF, 100 % drops 5 Active pantoprazole (PROTONIX) 40 mg EC tabletIndication s:Gastroesophage al reflux disease without esophagitis TAKE 1 TABLET DAILY BEFORE BREAKFAST. DO NOT CRUSH, CHEW OR SPLIT 90 tablet 3 5 Active apixaban (ELIQUIS) 2.5 mg tabletIndication s:hip surgery deep vein thrombosis prevention Take 1 tablet (2.5 mg total) by mouth 2 (two) times a day. Active metoprolol succinate (TOPROL-XL) 50 mg 24 hr tablet Take 1 tablet (50 mg total) by mouth 1 (one) time each day. Do not crush or chew. 30 each 11 5 09/24/20 26 Active oxyCODONE (ROXICODONE) 5 mg immediate release tablet Take 1 tablet (5 mg total) by mouth every 6 (six) hours if needed for severe pain for up to 3 days. Max Daily Amount: 20 mg 12 each 5 09/27/20 25 Active micafungin 100 mg in sodium chloride 0.9 % 100 mL IVPB Infuse 100 mg into a venous catheter 1 (one) time each day at the same time for 11 doses. 5 10/05/20 25 Active metoprolol succinate (TOPROL-XL) 50 mg 24 hr tablet Take 2 tablets (100 mg total) by mouth 1 (one) time each day. 09/24/20 Discontinu ed(Stop Taking at Discharge) furosemide (LASIX) 20 mg tablet Take 1 tablet (20 mg total) by mouth 1 (one) time each day. 09/24/20 Discontinu ed(Stop Taking at Discharge) doxycycline (MONODOX) 100 mg capsule Take 1 capsule (100 mg total) by mouth 2 (two) times a day for 1 dose. Take with at least 8 ounces (large glass) of water, do not lie down for 30 minutes after 1 each 5 09/24/20 Discontinu ed(Stop Taking at Discharge) Active Problems Problem Noted Date Diagnosed Date Fluid overload 09/15/2025 Congestive heart failure (CHF) ([facility] V24, [facility] V28) 08/10/2025 Overview (08/10/2025): diastolic dysfunction Calcinosis, Raynaud phenomen on, esophageal dysfunction, sclerodactyly, and telangiectasia (CREST) syndrome ([facility] V24, [facility] V28) 08/10/2025 Aplastic anemia, unspecified ([facility] V24) 08/10 Hyperlipidemia 08/10/2025 Hypothyroidism 08/10/2025 Insomnia 08/10/2025 Primary pulmonary hypertension ([facility] V24, [facility] V28) 08/10/2025 Recurrent aspiration pneumonia ([facility] V24, [facility] V28) 08/10/2025 Sjogren syndrome, unspecified ([facility] V24) 07/22 Underweight 08/10/2025 Osteoarthritis of left knee 03/01/2025 Displaced intertrochanteric fracture of left femur, subsequent encounter for closed fracture with routine healing 07/10/2024 Chronic kidney disease, stage 2 (mild) Osteoarthritis of first carpometacarpal joint of left hand 02/25/2024 Iron deficiency anemia due to chronic blood loss 06/13/2023 Assessment & Plan (04/14/2025 1:55 PM EDT): Continue weekly CBC's per hematology and transfuse as needed Pulmonary hypertension ([facility] [place]24, [facility] V28 ) 01/18/2023 Overview (08/10/2025): Added automatically from request for surgery [id number] Myeloid dysplasia ([facility] V24, [facility] V28) 03/2022 Normocytic anemia 04/25/2022 H/O total shoulder replacement 11/09/2021 Degeneration of lumbar intervertebral disc 08/04 Spinal stenosis of lumbar region 08/04/2021 Spondylosis without myelopathy 08/04/2021 Rectal prolapse 04/27/2021 Essential hypertension 01/08/2020 Hyponatremia 01/08/2020 Carpal tunnel syndrome of left wrist 06/19/2019 Overview (08/10/2025): Problem Code: G56.02; Problem Code Type: ICD-10; Status: 'A'; 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/20/2018 Inflammation of sacroiliac joint ([facility] [place] V24) 0 07/06/2017 Encounters Date Type Department Care Team Description 09/23/2025 11:08 AM EST Anesthesia Event [facility] Non-Invasive Cardiology [address] [place] [phone] Randal Osullivan DO 09/20/2025 7:52 AM EST Anesthesia Event [facility] Endoscopy [address] [place] [phone] Contreras, MD Fiorella Daley Nathaniel, CRNA 09/17/2025 Lab Requisition [facility] [address] [place] [phone] Sharon Haskins MD Myelodysplastic syndrome, unspecified ([facility] V24, [facility] V28); Hypothyroidism, unspecified; Vitamin D deficiency, unspecified; Hyperlipidemia, unspecified; Hypo-osmolality and hyponatremia; Other acute postprocedural pain; Essential (primary) hypertension; Pulmonary hypertension, unspecified ([facility] V24, [facility] V28); Idiopathic aseptic necrosis of left femur ([facility] [place] [facility] V24, [facility] V28) 09/15/2025 11:53 AM EST - 09/24/2025 6:31 PM [facility] [address] [place] [phone] Angel Yuen MD Flores, Carlos M, MD Rasul, Yar M, MD Mohani, Priya, MD Shah, Princy, MD Pneumonia of left lung due to infectious organism, unspecified part of lung (Primary Dx); SOB (shortness of breath); Leg swelling; Pleural effusion; Congestive heart failure, unspecified HF chronicity, unspecified heart failure type ([facility] V24, [facility] V28); Fluid overload; Achalasia; Bacteremia; Splenic infarct; Aortic valve vegetation; 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 Discharge Disposition: Home-Health Care [facility] 09/13/2025 Lab Requisition [facility] [address] [place] [phone] Sharon Haskins MD Myelodysplastic syndrome, unspecified ([facility] V24, [facility] V28); Hypothyroidism, unspecified; Vitamin D deficiency, unspecified; Hyperlipidemia, unspecified; Hypo-osmolality and hyponatremia; Other acute postprocedural pain; Essential (primary) hypertension; Pulmonary hypertension, unspecified ([facility] V24, [facility] V28); Idiopathic aseptic necrosis of left femur ([facility] V24, [facility] V28) 09/10/2025 Lab Requisition [facility] [address] [place] [phone] Sharon Haskins MD Unspecified diastolic (congestive) heart failure ([facility] V24, [facility] [place] V28); Pulmonary hypertension, unspecified ([facility] V24, [facility] [place] V28); Vitamin D deficiency, unspecified; Idiopathic aseptic necrosis of left femur ([facility] V24, [facility] V28); Other acute postprocedural pain; Hypo-osmolality and hyponatremia; Anemia, unspecified 09/10/2025 Lab Requisition [facility] [address] [place] [phone] Sharon Haskins MD Myelodysplastic syndrome, unspecified ([facility] [place] V24, [facility] [place] V28); Hypothyroidism, unspecified; Vitamin D deficiency, unspecified; Hyperlipidemia, unspecified; Hypo-osmolality and hyponatremia; Other acute postprocedural pain; Essential (primary) hypertension; Pulmonary hypertension, unspecified ([facility] V24, [facility] V28); Idiopathic aseptic necrosis of left femur ([facility] V24, [facility] V28) 08/18/2025 1:55 PM EDT - 08/18/2025 11:59 PM EDT Hospital Encounter [address] [phone] Aplastic anemia, unspecified ([facility] V24) [D61.9] (Primary Dx) Discharge Disposition: Home or Self Care 08/18/2025 Lab Requisition [facility] [address] [place] [phone] Paolo Euceda MD watermaster (current) use of anticoagulants; Other abnormal glucose; Encounter for preprocedural laboratory examination 08/18/2025 Telephone [facility] Hematology Oncology [address] [place] [phone] Marilee Rahman MD 08/17/2025 9:30 AM EDT - 08/17/2025 11:59 PM EDT Hospital Encounter [facility] [address] [place] [phone] Myeloid dysplasia ([facility] V24, [facility] V28) (Primary Dx); Iron deficiency anemia due to chronic blood loss Discharge Disposition: Home or Self Care 08/16/2025 11:28 AM EDT - 08/16/2025 11:59 PM EDT Hospital Encounter [facility] [address] [place] [phone] Marilee Rahman MD Aplastic anemia, unspecified ([facility] V24) (Primary Dx) Discharge Disposition: Home or Self Care 08/09/2025 10:00 AM EDT - 08/09/2025 11:59 PM EDT Hospital Encounter [facility] [address] [place] [phone] Myeloid dysplasia ([facility] V24, [facility] V28); Iron deficiency anemia due to chronic blood loss Discharge Disposition: Home or Self Care 08/09/2025 Lab Requisition [facility] [address] [facility] [place] [phone] Eric Duff DO Encounter for other preprocedural examination; Personal history of (healed) traumatic fracture 08/04/2025 10:00 AM EDT - 08/04/2025 11:59 PM EDT Hospital Encounter [address] [phone] Marilee Rahman MD Myeloid dysplasia ([facility] V24, [facility] V28) (Primary Dx); Iron deficiency anemia due to chronic blood loss Discharge Disposition: Home or Self Care 08/02/2025 2:30 PM EDT - 08/02/2025 11:59 PM EDT Hospital Encounter [address] [phone] Myeloid dysplasia ([facility] V24, [facility] V28); Iron deficiency anemia due to chronic blood loss Discharge Disposition: Home or Self Care 07/26/2025 3:00 PM EDT - 07/26/2025 11:59 PM EDT Hospital Encounter [facility] Infusion Center [address] [place] [phone] Myeloid dysplasia ([facility] V24, [facility] V28) (Primary Dx) Discharge Disposition: Home or Self Care 07/22/2025 10:57 AM EDT - 07/22/2025 11:59 PM EDT Hospital Encounter [address] [phone] Myeloid dysplasia ([facility] V24, [facility] V28); Iron deficiency anemia due to chronic blood loss Discharge Disposition: Home or Self Care 07/06/[address] [phone] Janis Hollingsworth RN 07/05/2025 11:02 AM EDT - 07/05/2025 11:59 PM EDT Hospital Encounter [address] [phone] Marilee Rahman MD Myeloid dysplasia ([facility] V24, [facility] V28); Iron deficiency anemia due to chronic blood loss Discharge Disposition: Home or Self Care 06/30/2025 10:49 AM EDT - 06/30/2025 11:59 PM EDT Hospital Encounter [address] [phone] Marilee Rahman MD Iron deficiency anemia due to chronic blood loss (Primary Dx) Discharge Disposition: Home or Self Care 06/29/2025 11:00 AM EDT - 06/29/2025 11:59 PM EDT Hospital Encounter [address] [phone] Marilee Rahman MD Myeloid dysplasia ([facility] V24, [facility] V28); Iron deficiency anemia due to chronic blood loss Discharge Disposition: Home or Self Care from Last 3 Months Immunizations Immunization Administration Dates Next Due Pfizer SARS-CoV-2 COVID-19, mRNA, LNP-S, preservative free 06/07/2021,12/16/2020,11/25/2020 Surgical History Surgery Date Site/Laterality Comments HIP SURGERY 06/11/[address] COLOSTOMY FOOT SURGERY Bilateral BONIONS HYSTERECTOMY ESOPHAGOGASTRODUODENOSCOPY COLONOSCOPY SHOULDER SURGERY Right Medical History Medical History Date Comments AVM (arteriovenous malformation) IN COLON Pulmonary HTN ([facility] V24, [facility] V28) Scleroderma ([facility] V24, [facility] V28) Sjogren syndrome ([facility] V24) GERD (gastroesophageal reflux disease) CREST (calcinosis, Raynaud's phenomenon, esophageal dysfunction, sclerodactyly, telangiectasia) ([facility] V24, [facility] V28) Anemia Pulmonary fibrosis ([facility] V24, [facility] V28) Mitochondrial myopathies Social History Tobacco Use Types Packs/Day Years [...] care for your loved ones. For example, director child development center or elderly care for an older adult? [...] Orientation Straight 11/09/2024 1: 36 PM EST Obstetrics History Last Filed Vital Signs Vital Sign Reading [...] Mass Index 21.45 09/15/2025 12:15 PM EST Plan of Treatment Upcoming Encounters Date Type Department Care Team (Late st Contact Info) Description 01/24/2026 10:30 AM EDT Office Visit [facility] Hematology Oncology [address] [place] [phone] Marilee Rahman MD [address] [place] [address] Health Maintenance Due Date Last Done Comments DTaP,Tdap,and Td Vaccines (1 - Tdap) 1964 Zoster Vaccines (1 of 2) 1964 RSV Immunization Adult Patients (1 - 1-dose 75+ series) 2020 Cholesterol Screening (Lipid Panel) 09/23/2022 Medicare Annual Wellness Visit 09/23/2022 Osteoporosis Screening (Bone Density Screening) 09/23/2022 Depression Screening 10/21/2024 COVID-19 Vaccine ( season) 2025 06/07/2021, 12/16/2020, 11/25/2020 Social Influencers of Health Screening 09/16/2026 09/16/2025 Hypertension/CHF/CAD Annual BMP Blood Test 09/23/2026 09/23/2025, 09/22/2025, 09/21/2025, Additional history exists Falls Risk Assessment 09/24/2026 09/24/2025 Hepatitis A Vaccines Aged Out 01/06/2007, 07/02/20 06 No longer eligible based on patient's age to complete this topic Pneumococcal Vaccine: 50+ Years Completed 08/09/2023 Influenza Vaccine Completed 2025, , 08/10/2022, Additional history exists HIB Vaccines Aged Out No longer eligi ble based on patient's age to complete this topic HPV Vaccines Aged Out No longer eligi ble based on patient's age to complete this topic Hepatitis B Vaccines Aged Out No long er eligible based on patient's age to complete this topic IPV Vaccines Aged Out No longer eligi ble based on patient's age to complete this topic MMR Vaccines Aged Out No longer eligi ble based on patient's age to complete this topic Meningococcal ACWY Vaccine Aged Out N o longer eligible based on patient's age to complete this topic Meningococcal B Vaccine Aged Out No l onger eligible based on patient's age to complete this topic RSV Immunization Patients Under 20 months Aged Out No longer eligible based on patient's age to complete this topic Varicella Vaccines Aged Out No longer eligible based on patient's age to complete this topic Goals Goal Patient Goal Type Associated Problems Recent Progress Patient-Stated? Author Autogenerat ed Goal Care Plan Autogenerated Problem No Christin Kent, compliance administrator Procedure Name Priority Date/Time Associated Diagnosis Comments ECG 12-LEAD Routine 09/24/2025 9:41 AM EST CBC WITH AUTO DIFFERENTIAL Timed 09/24/2025 5:22 AM EST CBC AND DIFFERENTIAL Timed 09/24/2025 5:22 AM EST SERGIO COMPLETE Routine 09/23/2025 11:47 AM EST Splenic infarct Aortic valve vegetation CBC WITH AUTO DIFFERENTIAL Timed 09/23/2025 5:23 AM EST MAGNESIUM Routine 09/23/2025 5:23 AM EST BASIC METABOLIC PANEL Routine 09/23/2025 5:23 AM EST PHOSPHORUS Routine 09/23/2025 5:23 AM EST CBC AND DIFFERENTIAL Timed 09/23/2025 5:[address] ABDOMEN PELVIS W CONTRAST STAT 09/22/2025 11:[address] HEAD WO AND W CONTRAST STAT 09/22/2025 11:02 AM EST CBC WITH AUTO DIFFERENTIAL Timed 09/22/2025 4:54 AM EST MAGNESIUM Routine 09/22/2025 4:54 AM EST PHOSPHORUS Routine 09/22/2025 4:54 AM EST BASIC METABOLIC PANEL Timed 09/22/2025 4:54 AM EST CBC AND DIFFERENTIAL Timed 09/22/2025 4:54 AM EST CULTURE BLOOD STAT 09/21/2025 2:50 PM EST CULTURE BLOOD STAT 09/21/2025 2:35 PM EST ECG 12-LEAD Routine 09/21/2025 11:16 AM EST HIV 1, 2 ANTIBODY, P24 ANTIGEN WITH REFLEX TO DIFFERENTIATION Add-On 09/21/2025 5:20 AM EST CBC WITH AUTO DIFFERENTIAL Timed 09/21/2025 5:20 AM EST BASIC METABOLIC PANEL Timed 09/21/2025 5:20 AM EST CBC AND DIFFERENTIAL Timed 09/21/2025 5:20 AM EST EGD Routine 09/20/2025 8:07 AM EST Achalasia TISSUE EXAM Routine 09/20/2025 8:03 AM EST Pleural effusion Congestive heart failure, unspecified HF chronicity, unspecified heart failure type (CMS/HCC V24, CMS/HCC V28) Fluid overload Achalasia Leg swelling SOB (shortness of breath) Pneumonia of left lung due to infectious organism, unspecified part of lung CBC WITH AUTO DIFFERENTIAL Timed 09/20/2025 4:50 AM EST C4 COMPLEMENT Routine 09/20/2025 4:50 AM EST C3 COMPLEMENT Routine 09/20/2025 4:50 AM EST RHEUMATOID FACTOR Routine 09/20/2025 4:5 0 AM EST NICK IFA WITH TITER AND PATTERN Routine 09/20/2025 4:50 AM EST BASIC METABOLIC PANEL Timed 09/20/2025 4:50 AM EST CBC AND DIFFERENTIAL Timed 09/20/2025 4:50 AM EST URINALYSIS WITH REFLEX MICROSCOPIC Routine 09/19/2025 4:50 PM EST CREATININE, URINE, RANDOM Routine 09/19/2025 4:50 PM EST SODIUM, URINE, RANDOM Routine 09/19/2025 4:50 PM EST PROTEIN AND CREATININE WITH RATIO, URINE Routine 09/19/2025 4:50 PM EST URINALYSIS WITH REFLEX MICROSCOPIC Routine 09/19/2025 4:50 PM EST CBC WITH AUTO DIFFERENTIAL Timed 09/19/2025 5:51 AM EST BASIC METABOLIC PANEL Timed 09/19/2025 5:51 AM EST CBC AND DIFFERENTIAL Timed 09/19/2025 5:51 AM EST CBC WITH AUTO DIFFERENTIAL Timed 09/18/2025 5:56 AM EST BASIC METABOLIC PANEL Timed 09/18/2025 5:56 AM EST CBC AND DIFFERENTIAL Timed 09/18/2025 5:56 AM EST TRANSTHORACIC ECHOCARDIOGRAM (TTE) COMPLETE W/ CONTRAST Routine 09/17/2025 11:12 AM EST Congestive heart failure, unspecified HF chronicity, unspecified heart failure type (CMS/HCC V24, CMS/HCC V28) CBC WITH AUTO DIFFERENTIAL Timed 09/17/2025 5:45 AM EST BASIC METABOLIC PANEL Timed 09/17/2025 5:45 AM EST CBC AND DIFFERENTIAL Timed 09/17/2025 5:45 AM EST TROPONIN I [...] 5:18 PM EST SOB (shortness of breath) C-REACTIVE PROTEIN Add-On 09/15/2025 3: 02 PM EST PROCALCITONIN Add-On 09/15/2025 3:02 PM EST COMPREHENSIVE METABOLIC PANEL STAT 09/15/2025 3:02 PM EST B-TYPE NATRIURETIC PEPTIDE STAT 09/15/2025 3:02 PM EST CBC WITH AUTO DIFFERENTIAL STAT 09/15/2025 3:02 PM EST PROTHROMBIN TIME WITH INR STAT 09/15/2025 3:02 PM EST ACTIVATED PARTIAL THROMBOPLASTIN TIME STAT 09/15/2025 3:02 PM EST TROPONIN I HIGH SENSITIVITY STAT 09/15/2025 3:02 PM EST CBC AND DIFFERENTIAL STAT 09/15/2025 3:02 PM EST VAS US DUPLEX LOWER EXT VENOUS BILAT STAT 09/15/2025 2:16 PM EST Leg swelling XR CHEST 2 VIEWS STAT 09/15/2025 1:31 PM EST ECG 12-LEAD STAT 09/15/2025 12:41 PM EST VITAMIN D 25 HYDROXY STAT 09/10/2025 1:06 PM EST Unspecified diastolic (congestive) heart failure (CMS/HCC V24, CMS/HCC V28) Pulmonary hypertension, unspecified (CMS/HCC V24, CMS/HCC V28) Vitamin D deficiency, unspecified 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, CMS/HCC V28) Other acute postprocedural pain Hypo-osmolality and hyponatremia Anemia, unspecified VITAMIN B12 STAT 09/10/2025 1:06 PM EST Unspecified diastolic (congestive) heart failure (CMS/HCC V24, CMS/HCC V28) Pulmonary hypertension, unspecified (CMS/HCC V24, CMS/HCC V28) Vitamin D deficiency, unspecified 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, CMS/HCC V28) Other acute postprocedural pain Hypo-osmolality and hyponatremia Anemia, unspecified FOLATE STAT 09/10/2025 1:06 PM EST Unspecified diastolic (congestive) heart failure (CMS/HCC V24, CMS/HCC V28) Pulmonary hypertension, unspecified (CMS/HCC V24, CMS/HCC V28) Vitamin D deficiency, unspecified 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, CMS/HCC V28) Other acute postprocedural pain Hypo-osmolality and hyponatremia Anemia, unspecified MAGNESIUM STAT 09/10/2025 1:06 PM EST Unspecified diastolic (congestive) heart failure (CMS/HCC V24, CMS/HCC V28) Pulmonary hypertension, unspecified (CMS/HCC V24, CMS/HCC V28) Vitamin D deficiency, unspecified 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, CMS/HCC V28) Other acute postprocedural pain Hypo-osmolality and hyponatremia Anemia, unspecified BASIC METABOLIC PANEL STAT 09/10/2025 1:06 PM EST Unspecified diastolic (congestive) heart failure (CMS/HCC V24, CMS/HCC V28) Pulmonary hypertension, unspecified (CMS/HCC V24, CMS/HCC V28) Vitamin D deficiency, unspecified 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, CMS/HCC V28) Other acute postprocedural pain Hypo-osmolality and hyponatremia Anemia, unspecified COMPLETE BLOOD COUNT STAT 09/10/2025 1:06 PM EST Unspecified diastolic (congestive) heart failure (CMS/HCC V24, CMS/HCC V28) Pulmonary hypertension, unspecified (CMS/HCC V24, CMS/HCC V28) Vitamin D deficiency, unspecified 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, CMS/HCC V28) Other acute postprocedural pain Hypo-osmolality and hyponatremia Anemia, unspecified ACTIVATED PARTIAL THROMBOPLASTIN TIME Routine 08/18/2025 2:06 PM EDT watermaster (current) use of anticoagulants Other abnormal glucose Encounter for preprocedural laboratory examination PROTHROMBIN TIME WITH INR Routine 08/18/2025 2:06 PM EDT [facility] (current) use of anticoagulants Other abnormal glucose Encounter for preprocedural laboratory examination HEMOGLOBIN A1C Routine 08/18/2025 2:06 PM EDT [facility] (current) use of anticoagulants Other abnormal glucose Encounter for preprocedural laboratory examination TRANSFUSE RED BLOOD CELLS Routine 08/17/2025 2:04 PM EDT Myeloid dysplasia (CMS/HCC V24, 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 TRANSFUSE RED BLOOD CELLS Routine 08/17/2025 11:03 AM EDT Myeloid dysplasia (CMS/HCC V24, 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 PREPARE RBC STAT 08/17/2025 9:50 AM EDT Myeloid dysplasia (CMS/HCC V24, 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 CBC WITH AUTO DIFFERENTIAL Routine 08/16/2025 11:42 AM EDT Aplastic anemia, unspecified (CMS/HCC V24) TYPE AND SCREEN Routine 08/16/2025 11:42 AM EDT Aplastic anemia, unspecified (CMS/HCC V24) CBC AND DIFFERENTIAL Routine 08/16/2025 11:42 AM EDT Aplastic anemia, unspecified (CMS/HCC V24) LAVENDER - EDTA Routine 08/09/2025 11:04 AM EDT Encounter for other preprocedural examination Personal history of (healed) traumatic fracture LT BLUE - NA CITRATE Routine 08/09/2025 11:04 AM EDT Encounter for other preprocedural examination Personal history of (healed) traumatic fracture BASIC METABOLIC PANEL Routine 08/09/2025 11:04 AM EDT Encounter for other preprocedural examination Personal history of (healed) traumatic fracture CBC WITH AUTO DIFFERENTIAL Routine 08/09/2025 10:25 AM EDT Myeloid dysplasia (CMS/HCC V24, 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 TYPE AND SCREEN Routine 08/09/2025 10:25 AM EDT Myeloid dysplasia (CMS/HCC V24, 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 CBC AND DIFFERENTIAL Routine 08/09/2025 10:25 AM EDT Myeloid dysplasia (CMS/HCC V24, 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 PREPARE RBC STAT 08/04/2025 10:15 AM EDT Myeloid dysplasia (CMS/HCC V24, 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 CBC WITH AUTO DIFFERENTIAL Routine 08/02/2025 2:54 PM EDT Myeloid dysplasia (CMS/HCC V24, 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 TYPE AND SCREEN Routine 08/02/2025 2:54 PM EDT Myeloid dysplasia (CMS/HCC V24, 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 CBC AND DIFFERENTIAL Routine 08/02/2025 2:54 PM EDT Myeloid dysplasia (CMS/HCC V24, 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 CBC WITH AUTO DIFFERENTIAL Routine 07/26/2025 3:22 PM EDT Myeloid dysplasia (CMS/HCC V24, CMS/HCC V28) TYPE AND SCREEN Routine 07/26/2025 3:22 PM EDT Myeloid dysplasia (CMS/HCC V24, CMS/HCC V28) CBC AND DIFFERENTIAL Routine 07/26/2025 3:22 PM EDT Myeloid dysplasia (CMS/HCC V24, CMS/HCC V28) CBC WITH AUTO DIFFERENTIAL Routine 07/22/2025 11:10 AM EDT Myeloid dysplasia (CMS/HCC V24, 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 TYPE AND SCREEN Routine 07/22/2025 11:10 AM EDT Myeloid dysplasia (CMS/HCC V24, 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 CBC AND DIFFERENTIAL Routine 07/22/2025 11:10 AM EDT Myeloid dysplasia (CMS/HCC V24, 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 CBC WITH AUTO DIFFERENTIAL Routine 07/05/2025 11:09 AM EDT Myeloid dysplasia (CMS/HCC V24, 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 TYPE AND SCREEN Routine 07/05/2025 11:09 AM EDT Myeloid dysplasia (CMS/HCC V24, 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 CBC AND DIFFERENTIAL Routine 07/05/2025 11:09 AM EDT Myeloid dysplasia (CMS/HCC V24, 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 CBC WITH AUTO DIFFERENTIAL Routine 06/29/2025 11:15 AM EDT Myeloid dysplasia (CMS/HCC V24, 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 TYPE AND SCREEN Routine 06/29/2025 11:15 AM EDT Myeloid dysplasia (CMS/HCC V24, 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 CBC AND DIFFERENTIAL Routine 06/29/2025 11:15 AM EDT Myeloid dysplasia (CMS/HCC V24, 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 from Last 3 Months Results * ECG 12 lead (09/24/2025 9:41 AM EST) Only the most recent of3 resultswithin the time period is included. Ventricular Rate ECG 87 BPM GEMUSE Atrial Rate 87 BPM GEMUSE P-R Interval 156 ms GEMUSE QRS Duration 78 ms GEMUSE Q-T Interval 398 ms GEMUSE QTc 478 ms GEMUSE P Wave [place] 56 degrees GEMUSE R [place] 103 degrees GEMUSE T [place] 91 degrees GEMUSE ECG Interpretation Normal sinus rhythm Rightward axis Cannot rule out Anterior infarct (cited on or before 21-SEP-2025) inferior St elevation, nonspecific Abnormal ECG When compared with ECG of 21-SEP-2025 11:16, No significant change was found Confirmed by Bishop MOREL JOHN ([id number]) on 09/25/2025 2:43:57 PM GEMUSE 09/24/2025 9:41 AM EST 09/25/2025 2:43 PM EST us Bob Reich MD ECG ORDERABLES Final Result GEMUSE * (ABNORMAL) CBC auto differential (09/24/2025 5:22 AM EST) Only the most recent of17 resultswithin the time period is included. WBC 10.1 4.8 - 10.8 K/mcL LAB HEMETOLOGY METHOD 09/24/2025 6:47 AM [facility] RBC 3.60(L) 3.80 - 4.80 M/mcL LAB HEMETOLOGY METHOD 09/24/2025 6:47 AM [facility] Hemoglobin 10.9(L) 11.5 - 16.0 g/dL LAB HEMETOLOGY METHOD 09/24/2025 6:47 AM [facility] Hematocrit 35.8 35.0 - 47.0 % LAB HEMETOLOGY METHOD 09/24/2025 6:47 AM [facility] MCV 100.0(H) 79.0 - 98.0 FL LAB HEMETOLOGY METHOD 09/24/2025 6:47 AM [facility] MCH 30.4 27.0 - 32.0 pcg LAB HEMETOLOGY METHOD 09/24/2025 6:47 AM [facility] MCHC 30.4(L) 32.0 - 37.0 g/dL LAB HEMETOLOGY METHOD 09/24/2025 6:47 AM [facility] RDW 18.6(H) 11.0 - 15.0 % LAB HEMETOLOGY METHOD 09/24/2025 6:47 AM [facility] Platelets 382 130 - 400 K/mcL LAB HEMETOLOGY METHOD 09/24/2025 6:47 AM [facility] MPV 9.3 7.0 - 11.0 FL LAB HEMETOLOGY METHOD 09/24/2025 6:47 AM [facility] NRBC 0.0 <1.0 % LAB HEMETOLOGY METHOD 09/24/2025 6:47 AM [facility] NRBC Absolute 0.00 <0.10 K/mcL LAB HEMETOLOGY METHOD 09/24/2025 6:47 AM [facility] Neutrophils Relative 91.0 % LAB HEMETOLOGY METHOD 09/24/2025 6:47 AM [facility] Lymphocytes Relative 3.9 % LAB HEMETOLOGY METHOD 09/24/2025 6:47 AM [facility] Monocytes Relative 3.4 % LAB HEMETOLOGY METHOD 09/24/2025 6:47 AM [facility] Eosinophils Relative 0.7 % LAB HEMETOLOGY METHOD 09/24/2025 6:47 AM [facility] Basophils Relative 0.2 % LAB HEMETOLOGY METHOD 09/24/2025 6:47 AM [facility] Immature Granulocytes Relative 0.8 % LAB HEMETOLOGY METHOD 09/24/2025 6:47 AM [facility] Neutrophils Absolute 9.17(H) 1.50 - 7.00 K/mcL LAB HEMETOLOGY METHOD 09/24/2025 6:47 AM [facility] Lymphocytes Absolute 0.39(L) 1.00 - 5.00 K/mcL LAB HEMETOLOGY METHOD 09/24/2025 6:47 AM [facility] Monocytes Absolute 0.34 0.20 - 1.00 K/mcL LAB HEMETOLOGY METHOD 09/24/2025 6:47 AM [facility] Eosinophils Absolute 0.07 0.00 - 0.50 K/mcL LAB HEMETOLOGY METHOD 09/24/2025 6:47 AM [facility] Basophils Absolute 0.02 0.00 - 0.20 K/mcL LAB HEMETOLOGY METHOD 09/24/2025 6:47 AM [facility] Immature Granulocytes Absolute 0.08(H) 0.00 - 0.03 K/mcL LAB HEMETOLOGY METHOD 09/24/2025 6:47 AM [facility] Blood Venous blood specimen / Unknown Venipuncture / Unknown 09/24/2025 5:22 AM EST 09/24/2025 6:26 AM EST us Mikael Balderas MD LAB BLOOD ORDERABLES Final Resul t [facility] [place] ([facility]) [facility] [address] [place] [address], [place] [phone] * (ABNORMAL) SERGIO COMPLETE (09/23/2025 11:47 AM [...] obtained. The probe was inserted by the rehab aid. There was no probe insertion difficulty. by anesthesia. The patient had no complications. Estimated blood loss: no blood loss. No specimens were collected. Briana Mix MD CV ECHO PROCEDURES Final Result * Phosphorus (09/23/2025 5:23 AM EST) Only the most recent of2 resultswithin the time period is included. Phosphorus 3.2 2.5 - 4.5 mg/dL 09/23/2025 7:16 AM EST [facility] Blood Venous blood specimen / Unknown Venipuncture / Unknown 09/23/2025 5:23 AM EST 09/23/2025 6:26 AM EST us Bob Reich MD LAB BLOOD ORDERABLES Final Resul t Performing Organization Address City/[facility]/ZIP Co de Phone Number [facility] [address] [place] [address], [place] [phone] * (ABNORMAL) Magnesium (09/23/2025 5:23 AM EST) Only the most recent of4 resultswithin the time period is included. Magnesium 1.8(L) 1.9 - 2.6 mg/dL 09/23/2025 7:13 AM EST [facility] Blood Venous blood specimen / Unknown Venipuncture / Unknown 09/23/2025 5:23 AM EST 09/23/2025 6:26 AM EST us Bob Reich MD LAB BLOOD ORDERABLES Final Resul t Performing Organization Address [facility]/ZIP Co de Phone Number [facility] [address] [place] [address], [place] [phone] * (ABNORMAL) Basic metabolic panel (09/23/2025 5:23 AM EST) Only the most recent of10 resultswithin the time period is included. Sodium 141 133 - 145 mmol/L 09/23/2025 7:15 AM EST [facility] Potassium 4.2 3.5 - 5.5 mmol/L 09/23/2025 7:15 AM EST [facility] Chloride 110 96 - 110 mmol/L 09/23/2025 7:15 AM [facility] CO2 22 21 - 32 mmol/L 09/23/2025 7:15 AM EST [facility] Anion Gap 9 3 - 11 09/23/2025 7:15 AM [facility] Glucose 126(H) 70 - 100 mg/dL 09/23/2025 7:15 AM [facility] BUN 41(H) 5 - 25 mg/dL 09/23/2025 7:15 AM [facility] Creatinine 1.00 0.50 - 1.10 mg/dL 09/23/2025 7:15 AM [facility] eGFR 57(L) >=60 mL/min/1. 73m2 09/23/2025 7:15 AM [facility] Comment:Calculation based on the Chronic Kidney Disease Epidemiology Collaboration (CKD-EPI) equation refit without adjustment for race. BUN/Creatinine Ratio 41.0 09/23/2025 7:15 AM [facility] Calcium 8.2(L) 8.5 - 10.5 mg/dL 09/23/2025 7:15 AM [facility] Blood Venous blood specimen / Unknown Venipuncture / Unknown 09/23/2025 5:23 AM EST 09/23/2025 6:26 AM EST Bob Reich MD LAB BLOOD ORDERABLES Final Resul t [facility] [address] [place] [address], * CT Abdomen Pelvis w Contrast (09/22/2025 [...] Signed Date: 09/22/2025 12:12 ET Workstation ID: [id number] Transcribed By: Self Edit Transcribed Date: 09/22/2025 [...] Signed Date: 09/22/2025 12:12 ET Workstation ID: [id number] Transcribed By: Self Edit Transcribed Date: 09/22/2025 11:50 ET Bob Reich MD Debbie CT PROCEDURES Final Result * CT Head [...] Signed Date: 09/22/2025 11:32 ET Workstation ID: [id number] Transcribed By: Self Edit Transcribed Date: 09/22/2025 [...] Signed Date: 09/22/2025 11:32 ET Workstation ID: [id number] Transcribed By: Self Edit Transcribed Date: 09/22/2025 11:29 ET us Bob Reich MD IMG CT PROCEDURES Final Result * HIV 1,2 antibody, p24 antigen with reflex to differentiation (09/21/2025 5:20 AM EST) HIV Combo AB/AG Negative Negative 09/21/2025 10:23 PM EST [facility] Blood Venous blood specimen / Unknown Venipuncture / Unknown 09/21/2025 5:20 AM EST 09/21/2025 6:25 AM EST Narrative [facility] - 09/21/2025 10:23 [...] CDC recommendation for HIV screening. us Bob Reich MD LAB BLOOD ORDERABLES Final Resul t [facility] [address] [place] [address], * EGD Anesthesia - MAC; [facility] ENDOSCOPY (09/20/2025 8:07 AM EST) Anatomical Region [...] frequent liquids. Narrative 09/20/2025 8:14 AM EST [facility] GI Patient Name: Iwona Romero Procedure Date: [...] was normal. 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 All rights reserved. The codes documented in this report are preliminary and upon weight control engineer review may be revised to meet current compliance requirements. Caitlin Birmingham MD 09/20/2025 8:14:33 AM This report has been signed electronically.Caitlin Birmingham MD Number of Addenda: 0 Note Initiated On: 09/20/2025 7:54 AM Scope In: Scope Out: Endoscopy Department at [facility] - [address] [place] [id number] Procedure Note Caitlin Birmingham MD - 09/20/2025 [facility] GI Patient Name: Iwona Romero Procedure Date: [...] was normal. 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 All rights reserved. The codes documented in this report are preliminary and upon weight control engineer reviewmay be revised to meet current compliance requirements. Caitlin Birmingham MD 09/20/2025 8:14:33 AM This report has been signed electronically.Caitlin Birminhgam MD Number of Addenda: 0 Note Initiated On: 09/20/2025 7:54 AM Scope In: Scope Out: Endoscopy Department at [facility] - [address] [place] [id number] IMPRESSION: - Dilation in the entire esophagus. [...] posible- including sleeping. Small mealswith frequent liquids. us Caitlin Birmingham MD GI~PROCEDURE ORDERABLES Final Result * Tissue exam (09/20/2025 8:03 AM EST) Final Diagnosis A. Esophagus, biopsies: - Yumiko esophagitis. 09/21/2025 9:21 AM EST [facility] ([facility]) HOSPITAL LAB at 0921 EST Gross Description A. [...] survive processing. hs/DG 09/21/2025 9:21 AM EST [facility] Disclaimer Unless otherwise specified, all tissue is 10% NB formalin fixed and paraffin embedded. 09/21/2025 9:21 AM [facility] Tissue Esophageal structure / Unknown 09/20/2025 8:03 AM EST 09/20/2025 10:24 AM EST Ciatlin Birmingham MD LAB PATHOLOGY ORDERABLES Final Result Performing Organization Address [facility]/ZIP Co de Phone Number [facility] [address] [place] [address], [place] [phone] * (ABNORMAL) NICK IFA with titer and pattern (09/20/2025 4:50 AM EST) NICK Positive (A) Negative 09/20/2025 12:33 PM [facility] Comment:NICK performed by ind irect immunofluorescence (IFA) using HEp-2 substrate. 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 Titer >=1:2560 (A) <1:160 09/20/2025 12:33 PM [facility] Blood Venous blood specimen / Unknown Venipuncture / Unknown 09/20/2025 4:50 AM EST 09/20/2025 6:23 AM EST Anita Fletcher MD LAB BLOOD ORDERABLES Final Re sult [facility] [address] [place] [address], [place] [phone] * Rheumatoid factor (09/20/2025 4:50 AM EST) Rheumatoid Factor 7.5 <15.0 I Unit/mL 09/20/2025 7:13 AM EST [facility] Blood Venous blood specimen / Unknown Venipuncture / Unknown 09/20/2025 4:50 AM EST 09/20/2025 6:23 AM EST us Anita Fletcher MD LAB BLOOD ORDERABLES Final Re sult Performing Organization Address [facility] Co de Phone Number [facility] [address] [place] [address], [place] [phone] * C3 complement (09/20/2025 4:50 AM EST) C3 Complement 101 88 - 201 mg/dL 09/20/2025 7:14 AM EST [facility] Blood Venous blood specimen / Unknown Venipuncture / Unknown 09/20/2025 4:50 AM EST 09/20/2025 6:23 AM EST us Anita Fletcher MD LAB BLOOD ORDERABLES Final Re sult Performing Organization Address [facility]/ZIP Co de Phone Number [facility] [address] [place] [address], [place] [phone] * C4 complement (09/20/2025 4:50 AM EST) C4 Complement 21 16 - 47 mg/dL 09/20/2025 7:14 AM EST [facility] Blood Venous blood specimen / Unknown Venipuncture / Unknown 09/20/2025 4:50 AM EST 09/20/2025 6:23 AM EST us Anita Fletcher MD LAB BLOOD ORDERABLES Final Re sult [facility] [address] [place] [address], [place] [phone] * (ABNORMAL) Urinalysis with reflex microscopic (09/19/2025 4:50 PM EST) Specific [place] Urine 1.034(H) 1.003 - 1.030 LAB URINALYSIS - AUTOMATED METHOD 09/19/2025 8:15 PM [facility] pH, Urine 5.0 5.0 - 8.0 pH LAB URINALYSIS - AUTOMATED METHOD 09/19/2025 8:15 PM [facility] Leukocytes, Urine Small(A) Negative LAB URINALYSIS - AUTOMATED METHOD 09/19/2025 8:15 PM [facility] Nitrite, Urine Negative Negative LAB URINALYSIS - AUTOMATED METHOD 09/19/2025 8:15 PM [facility] Protein, Urine 30(A) <=Trace mg/dL LAB URINALYSIS - AUTOMATED METHOD 09/19/2025 8:15 PM [facility] Glucose, Urine Negative Negative mg/dL LAB URINALYSIS - AUTOMATED METHOD 09/19/2025 8:15 PM [facility] Ketones, Urine Trace(A) Negative mg/dL LAB URINALYSIS - AUTOMATED METHOD 09/19/2025 8:15 PM [facility] Urobilinogen , Urine 1.0 0.2 - 1.0 mg/dL LAB URINALYSIS - AUTOMATED METHOD 09/19/2025 8:15 PM [facility] Bilirubin, Urine Negative Negative LAB URINALYSIS - AUTOMATED METHOD 09/19/2025 8:15 PM [facility] Blood, Urine Negative Negative LAB URINALYSIS - AUTOMATED METHOD 09/19/2025 8:15 PM [facility] RBC, Urine 4 0 - 4 /HPF 09/19/2025 8:15 PM [facility] WBC, Urine 15(H) 0 - 4 /HPF 09/19/2025 8:15 PM [facility] Squamous Epithelial, Urine >100(H) 0 - 60 /LPF 09/19/2025 8:15 PM [facility] Non-Squamous Epithelial, Urine Rare Transitional epithelial cells. /LPF 09/19/2025 8:15 PM [facility] Bacteria, Urine Few(A) Negative /HPF 09/19/2025 8:15 PM [facility] Hyaline Casts, Urine 0 0 - 3 /LPF 09/19/2025 8:15 PM [facility] Urine Urine specimen obtained by clean catch procedure / Unknown Non-blood Collection / Unknown 09/19/2025 4:50 PM EST 09/19/2025 7:51 PM EST us Anita Fletcher MD LAB URINE ORDERABLES Final Re sult [facility] [address] [place] [address], * (ABNORMAL) Protein and creatinine with ratio, urine (09/19/2025 4:50 PM EST) Protein, Urine 56 mg/dL 09/19/2025 8:17 PM [facility] Prot/Creat, Ur 0.56(H) <=0.20 mg/mg creat 09/19/2025 8:17 PM [facility] Creatinine, Urine 100.0 mg/dL 09/19/2025 8:17 PM [facility] Urine Urine specimen obtained by clean catch procedure / Unknown Non-blood Collection / Unknown 09/19/2025 4:50 PM EST 09/19/2025 7:51 PM EST us Anita Fletcher MD LAB URINE ORDERABLES Final Re sult Performing Organization Address [facility] Co de Phone Number [facility] [address] [place] [address], [place] [phone] * Sodium, urine, random (09/19/2025 4:50 PM EST) Sodium, Ur 11 mmol/L 09/19/2025 8:09 PM EST [facility] Urine Urine specimen obtained by clean catch procedure / Unknown Non-blood Collection / Unknown 09/19/2025 4:50 PM EST 09/19/2025 7:51 PM EST us Anita Fletcher MD LAB URINE ORDERABLES Final Re sult Performing Organization Address [facility] de Phone Number [facility] [address] [place] [address], [place] [phone] * Creatinine, urine, random (09/19/2025 4:50 PM EST) Creatinine, Urine 100.0 mg/dL 09/19/2025 8:17 PM EST [facility] Urine Urine specimen obtained by clean catch procedure / Unknown Non-blood Collection / Unknown 09/19/2025 4:50 PM EST 09/19/2025 7:51 PM EST us Anita Fletcher MD LAB URINE ORDERABLES Final Re sult Performing Organization Address [facility] Co de Phone Number [facility] [address] [place] [address], [place] [phone] * (ABNORMAL) TRANSTHORACIC ECHOCARDIOGRAM (TTE) COMPLETE W/ CONTRAST (09/17/2025 11:12 AM EST) Ascending Aorta 3.2 cm CV PACS Ascending Aorta Index 2.18 cm/m2 CV PACS Left Atrium Minor [place] 4.4 cm CV PACS Left Atrium Major [place] 5.3 cm CV PACS LA Area Sys [...] Volume 84 mL CV PACS MV Deceleration Coffee 8.9 m/s2 CV PACS E Wave Deceleration Time 144 119 - 242 ms CV PACS MV PHT 42 ms CV PACS MV Peak A Roberto 2.43 m/s CV PACS MV Peak E Rboerto 1.28 m/s CV PACS MV Mean Gradient [...] CV ECHO PROCEDURES Final Result * (ABNORMAL) Troponin I high sensitivity (09/16/2025 11:21 AM EST) Only the most recent of3 resultswithin the time period is included. High Sensitivity Troponin I 36(H) <=34 ng/L 09/16/2025 12:00 PM EST [facility] Blood Venous blood specimen / Unknown Venipuncture / Unknown 09/16/2025 11:21 AM EST 09/16/2025 11:31 AM EST Mikael Balderas MD LAB BLOOD ORDERABLES Final Resul t [facility] [address] [place] [address], [place] [phone] * Lactate (09/15/2025 8:19 PM EST) [facility] Lactate 0.7 0.4 - 2.0 mmol/L 09/15/2025 8:54 PM EST [facility] Blood Venous blood specimen / Unknown Venipuncture / Unknown 09/15/2025 8:19 PM EST 09/15/2025 8:26 PM EST us Angel Yuen MD LAB BLOOD ORDERABLES Final Resul t Performing Organization Address [facility]/ZIP Co de Phone Number [facility] [address] [place] [address], [place] [phone] * MRSA molecular study (09/15/2025 8:10 PM EST) [facility] MRSA Screen PCR Not Detected Not Detected LAB MICROBIOLOGY METHOD 09/15/2025 9:51 PM EST [facility] Swab Both anterior nares / Unknown Non-blood Collection / Unknown 09/15/2025 8:10 PM EST 09/15/2025 8:32 PM EST us Angel Yuen MD LAB MICROBIOLOGY - GENERAL ORDER MATT Final Result Performing Organization Address City/[facility]/ZIP Co de Phone Number [facility] [address] [place] [address], [place] [phone] * CT Angio Chest wo and/or w Contrast (09/15/2025 5:18 PM EST) Anatomical Region Laterality Modality Body Computed Tomogra phy 09/15/2025 5:55 PM EST Impressions 09/15/2025 5:55 PM EST 1. There is no evidence of pulmonary artery embolism. 2. There is generalized increased fluid status with [id number] bilateral pleural effusions, moderate ascites, a small [...] There is generalized increased fluid status with uramn-ac-acufkzzl bilateral pleural effusions, moderate ascites, a small pericardial effusion and edema of the soft tissues. 3. Opacities within the left lower lobe may be secondary to atelectasisor pneumonia. 4. Markedly dilated esophagus containing debris. Suspect achalasia. This document has been electronically signed by: Lindsay Moura MD on 09/15/2025 17:55:20 Angel Yuen MD IM CT PROCEDURES Final Result * (ABNORMAL) Procalcitonin (09/15/2025 3:02 PM EST) Procalcitonin 0.67(H) <=0.05 ng/mL 09/15/2025 8:12 PM EST [facility] Blood Venous blood specimen / Unknown Venipuncture / Unknown 09/15/2025 3:02 PM EST 09/15/2025 3:12 PM EST Narrative [facility] - 09/15/2025 8:12 [...] if any concentrations <2.0 ng/mL are obtained. us Cristhian Montoya MD LAB BLOOD ORDERABLES Final Re sult Performing Organization Address City/[facility]/ZIP Co de Phone Number [facility] [address] [place] [address], [place] [phone] * (ABNORMAL) APTT (09/15/2025 3:02 PM EST) Only the most recent of2 resultswithin the time period is included. aPTT 44.9(H) 24.1 - 39.3 sec LAB COAGULATION METHOD 09/15/2025 3:29 PM EST [facility] Blood Venous blood specimen / Unknown Venipuncture / Unknown 09/15/2025 3:02 PM EST 09/15/2025 3:12 PM EST us Angel Yuen MD LAB BLOOD ORDERABLES Final Resul t Performing Organization Address [facility] de Phone Number [facility] [address] [place] [address], [place] [phone] * Protime-INR (09/15/2025 3:02 PM EST) Only the most recent of2 resultswithin the time period is included. Protime 13.9 10.6 - 13.9 sec LAB COAGULATION METHOD 09/15/2025 3:29 PM EST [facility] INR 1.1 LAB COAGULATION METHOD 09/15/2025 3:29 PM EST [facility] Blood Venous blood specimen / Unknown Venipuncture / Unknown 09/15/2025 3:02 PM EST 09/15/2025 3:12 PM EST us Angel Yuen MD LAB BLOOD ORDERABLES Final Resul t Performing Organization Address City/[facility]/ZIP Co de Phone Number [facility] [address] [place] [address], [place] [phone] * (ABNORMAL) C-reactive protein (09/15/2025 3:02 PM EST) [facility] C-Reactive Protein 4.14(H) <=0.50 mg/dL 09/15/2025 8:04 PM EST [facility] Blood Venous blood specimen / Unknown Venipuncture / Unknown 09/15/2025 3:02 PM EST 09/15/2025 3:12 PM EST Cristhian Montoya MD LAB BLOOD ORDERABLES Final Re sult Performing Organization Address [facility]/ZIP Co de Phone Number [facility] [address] [place] [address], [place] [phone] * (ABNORMAL) B-Type Natriuretic Peptide (BNP) (09/15/2025 3:02 PM EST) [facility] BNP 961(H) <=100 pcg/mL 09/15/2025 3:56 PM EST [facility] Blood Venous blood specimen / Unknown Venipuncture / Unknown 09/15/2025 3:02 PM EST 09/15/2025 3:12 PM EST Narrative [facility] - 09/15/2025 3:56 PM EST Over the counter supplements containing high doses of biotin may interfere with this assay. If interference is suspected, patients shoud be retested after refraining from biotin supplements for 72 hours. us Angel Yuen MD LAB BLOOD ORDERABLES Final Resul t [facility] [address] [place] [address], [place] [phone] * (ABNORMAL) Comprehensive Metabolic Panel (CMP) (09/15/2025 3:02 PM EST) [facility] Sodium 138 133 - 145 mmol/L 09/15/2025 4:42 PM [facility] Potassium 3.9 3.5 - 5.5 mmol/L 09/15/2025 4:42 PM [facility] Chloride 107 96 - 110 mmol/L 09/15/2025 4:42 PM [facility] CO2 24 21 - 32 mmol/L 09/15/2025 4:42 PM [facility] Anion Gap 7 3 - 11 09/15/2025 4:42 PM [facility] Glucose 95 70 - 100 mg/dL 09/15/2025 4:42 PM [facility] BUN 40(H) 5 - 25 mg/dL 09/15/2025 4:42 PM [facility] Creatinine 0.93 0.50 - 1.10 mg/dL 09/15/2025 4:42 PM [facility] eGFR 62 >=60 mL/min/1. 73m2 09/15/2025 4:42 PM [facility] Comment:Calculation based on the Chronic Kidney Disease Epidemiology Collaboration (CKD-EPI) equation refit without adjustment for race. BUN/Creatinine Ratio 43.0 09/15/2025 4:42 PM [facility] Calcium 7.6(L) 8.5 - 10.5 mg/dL 09/15/2025 4:42 PM [facility] AST (SGOT) 29 10 - 42 unit/L 09/15/2025 4:42 PM [facility] ALT (SGPT) 15 10 - 60 unit/L 09/15/2025 4:42 PM [facility] Alkaline Phosphatase 640(H) 42 - 121 unit/L 09/15/2025 4:42 PM [facility] Comment:Results verified by repeat testing Total Protein 5.1(L) 6.0 - 8.0 g/dL 09/15/2025 4:42 PM EST [facility] Albumin 2.5(L) 3.2 - 5.0 g/dL 09/15/2025 4:42 PM EST [facility] Total Bilirubin 0.4 0.0 - 1.4 mg/dL 09/15/2025 4:42 PM EST [facility] Blood Venous blood specimen / Unknown Venipuncture / Unknown 09/15/2025 3:02 PM EST 09/15/2025 3:12 PM EST us Angel Yuen MD LAB BLOOD ORDERABLES Final Resul t [facility] [address] [place] [address], [place] [phone] * Vascular US Duplex Lower Extremity Venous [...] Signed Date: 09/15/2025 15:10 ET Workstation ID: [id number] Transcribed By: Self Edit Transcribed Date: 09/15/2025 [...] Signed Date: 09/15/2025 15:10 ET Workstation ID: [id number] Transcribed By: Self Edit Transcribed Date: 09/15/2025 [...] Signed Date: 09/15/2025 14:27 ET Workstation ID: [id number] Transcribed By: Self Edit Transcribed Date: 09/15/2025 14:24 ET Narrative 09/15/2025 2:27 PM EST INDICATION: Chest pain FINDINGS: Two views of the chest were obtained. Compared to multiple prior studies most recent from July 24, 2024. Lung fernandez are mildly hypoinflated. Airspace disease within the [...] most recent from July 24, 2024. Lung fernandez are mildly hypoinflated. Airspace disease within the [...] Signed Date: 09/15/2025 14:27 ET Workstation ID: [id number] Transcribed By: Self Edit Transcribed Date: 09/15/2025 14:24 ET us Angel Yuen MD IMG XR PROCEDURES Final Result * Vitamin D 25 hydroxy (09/10/2025 1:06 PM EST) [facility] Vit D, 25-Hydroxy 43.0 30.0 - 80.0 ng/mL 09/10/2025 2:05 PM EST [facility] Blood Venous blood specimen / Unknown Venipuncture / Unknown 09/10/2025 1:06 PM EST 09/10/2025 1:38 PM EST us Sahron Haskins MD LAB BLOOD ORDERABLES Fin al Result [facility] [address] [place] [address], [place] [phone] * (ABNORMAL) Complete blood count (09/10/2025 1:06 PM EST) [facility] WBC 7.2 4.8 - 10.8 K/mcL LAB HEMETOLOGY METHOD 09/10/2025 1:43 PM [facility] RBC 3.30(L) 3.80 - 4.80 M/mcL LAB HEMETOLOGY METHOD 09/10/2025 1:43 PM [facility] Hemoglobin 10.2(L) 11.5 - 16.0 g/dL LAB HEMETOLOGY METHOD 09/10/2025 1:43 PM [facility] Hematocrit 33.3(L) 35.0 - 47.0 % LAB HEMETOLOGY METHOD 09/10/2025 1:43 PM [facility] MCV 100.9(H) 79.0 - 98.0 FL LAB HEMETOLOGY METHOD 09/10/2025 1:43 PM [facility] MCH 30.9 27.0 - 32.0 pcg LAB HEMETOLOGY METHOD 09/10/2025 1:43 PM [facility] MCHC 30.6(L) 32.0 - 37.0 g/dL LAB HEMETOLOGY METHOD 09/10/2025 1:43 PM [facility] RDW 19.3(H) 11.0 - 15.0 % LAB HEMETOLOGY METHOD 09/10/2025 1:43 PM [facility] Platelets 194 130 - 400 K[facility] LAB HEMETOLOGY METHOD 09/10/2025 1:43 PM [facility] MPV 9.7 7.0 - 11.0 FL LAB HEMETOLOGY METHOD 09/10/2025 1:43 PM [facility] NRBC 0.0 <1.0 % LAB HEMETOLOGY METHOD 09/10/2025 1:43 PM [facility] NRBC Absolute 0.00 <0.10 K/mcL LAB HEMETOLOGY METHOD 09/10/2025 1:43 PM EST [facility] Blood Venous blood specimen / Unknown Venipuncture / Unknown 09/10/2025 1:06 PM EST 09/10/2025 1:38 PM EST Sharon Hasikns MD LAB BLOOD ORDERABLES Fin al Result Performing Organization Address [facility] de Phone Number [facility] [address] [place] [address], * Folate (09/10/2025 1:06 PM EST) Folate >24.0 >=5.4 ng/ml 09/10/2025 2:06 PM EST [facility] Blood Venous blood specimen / Unknown Venipuncture / Unknown 09/10/2025 1:06 PM EST 09/10/2025 1:38 PM EST Narrative [facility] - 09/10/2025 2:06 PM EST Over the counter supplements containing high doses of biotin may interfere with this assay. If interference is suspected, patients shoud be retested after refraining from biotin supplements for 72 hours. Sharon Haskins MD LAB BLOOD ORDERABLES Fin al Result Performing Organization Address [facility] de Phone Number [facility] [address] [place] [address], * (ABNORMAL) Vitamin B12 (09/10/2025 1:06 PM EST) Vitamin B-12 >2,000(H) 211 - 911 pcg/mL 09/10/2025 2:06 PM EST [facility] Blood Venous blood specimen / Unknown Venipuncture / Unknown 09/10/2025 1:06 PM EST 09/10/2025 1:38 PM EST Sharon Haskins MD LAB BLOOD ORDERABLES Fin al Result Performing Organization Address [facility]/ZIP Co de Phone Number [facility] [address] [place] [address], * Hemoglobin A1c (08/18/2025 2:06 PM EDT) [facility] Hemoglobin A1C 4.9 <6.5 % LAB CHEMISTRY METHOD 08/18/2025 9:23 PM EDT [facility] Mean Bld Glu Estim. 94 mg/dL LAB CHEMISTRY METHOD 08/18/2025 9:23 PM EDT [facility] Blood Venous blood specimen / Unknown 08/18/2025 2:06 PM EDT 08/18/2025 2:45 PM EDT Paolo Euceda MD LAB BLOOD ORDERABLES Final Re sult Performing Organization Address [facility]/ZIP Co de Phone Number [facility] [address] [place] [address], [place] [phone] * Transfuse RBC (08/17/2025 4:45 PM EDT) Only the most recent of4 resultswithin the time period is included. Marilee Rahman MD BLOOD TRANSFUSION ORDERABLES Final Result * Prepare RBC: 2 Units (08/17/2025 9:50 AM EDT) Only the most recent of2 resultswithin the time period is included. Pathologist [facility] Product Code [id number] 08/17/2025 11:05 AM EDT [facility] Unit Number [id number] 08/17/20 11:05 AM EDT [facility] Crossmatch Compatible 08/17/2025 10:42 AM EDT [facility] Dispense Status Transfused 08/17/2025 11:05 AM EDT [facility] Unit ABO Rh ONEG 08/17/2025 11:05 AM EDT [facility] Unit Expiration Date Time [id number] 08/17/2025 11:05 AM EDT [facility] Unit Blood Type 9500 08/17/2025 11:05 AM EDT [facility] Product Code [id number] 08/17/2025 2:06 PM EDT [facility] Unit Number [id number] 08/17/20 2:06 PM EDT [facility] Crossmatch Compatible 08/17/2025 10:45 AM EDT [facility] Dispense Status Transfused 08/17/2025 2:06 PM EDT [facility] Unit ABO Rh BPOS 08/17/2025 2:06 PM EDT [facility] Unit Expiration Date Time [id number] 08/17/2025 2:06 PM EDT [facility] Unit Blood Type 7300 08/17/2025 2:06 PM EDT [facility] Blood Venous blood specimen / Unknown 08/17/2025 9:50 AM EDT 08/16/2025 11:49 AM EDT [facility] U Josiah COLEMAN BLOOD BANK PRODUCT ORDERABLE S Final Result [facility] [address] [place] [address], * Type and screen (08/16/2025 11:42 AM EDT) Only the most recent of7 resultswithin the time period is included. ABO Group B 08/16/2025 12:57 PM EDT [facility] Rh Type Positive 08/16/2025 12:57 PM EDT [facility] Antibody Screen Negative 08/16/2025 12:57 PM EDT [facility] Blood Blood sample taken from central line / Unknown Existing Catheter / Unknown 08/16/2025 11:42 AM EDT 08/16/2025 11:49 AM EDT us Marilee Rahman MD LAB BLOOD BANK TEST ORDERABL ES Final Result [facility] [address] [place] [address], [place] [phone] * Lavender tube (08/09/2025 11:04 AM EDT) Extra Tube Hold for add-ons. 08/09/2025 1:01 PM EDT [facility] Comment:Auto resulted. Blood Venous blood specimen / Unknown 08/09/2025 11:04 AM EDT 08/09/2025 11:36 AM EDT Eric Duff DO LAB BLOOD ORDERABLES Final Resul t Performing Organization Address City/[facility]/ZIP Co de Phone Number [facility] [address] [place] [address], [place] [phone] * Light blue tube (08/09/2025 11:04 AM EDT) Extra Tube Hold for add-ons. 08/09/2025 1:01 PM EDT [facility] Comment:Auto resulted. Blood Venous blood specimen / Unknown 08/09/2025 11:04 AM EDT 08/09/2025 11:36 AM EDT Eric Duff DO LAB BLOOD ORDERABLES Final Resul t [facility] [address] [place] [address], [place] [phone] from Last 3 Months Additional Health Concerns Active Problems Noted Date Diagnosed Date Autogenerated Problem 09/20/2025 Insurance MEDICARE [facility] Advance Directives Documents on File Type Date Recorded Patient Management Information Systems Director Expl anation Advance Directives and Living Will 09/17/2025 1:51 PM Paolo (Doctor) Heather Health Care Proxy * Full Code - Default (Latest Code Status on File) Date Activated Date Inactivated Comments 09/15/2025 7:25 PM 09/24/2025 8:36 PM This is ord er is used when code status has not been discussed with the patient, or code status is otherwise unknown/unconfirmed To update the patient's code status, place a code status order. Do not modify or discontinue any currently active code status orders. Healthcare Agents on File Name Relationship Healthcare Agent Relationship Communication Paolo (Doctor) Heather Spouse Health Care Agent [email or web address] Care Teams Lock Technician Relationship Specialty Start Date End Date Jermaine Lazaro MD [address] [place] [address] PCP - General Comic Artist 02/06/22
--- OUTSIDE RECORDS SUMMARY | 2025-09-25 14:48 | XMS_ITS | Clinical Summary ---
Author Organization [facility] Address [address] [place] [address] Phone Care Team Providers Care Stabilizing Machine Operator Name Role Phone Jermaine Lr MD Primary Care Provider Allergies Active Allergy Reactions Criticality Noted Date Comments Epinephrine 05/11/2024 Rigors, shakes Cyclosporine 05/11/2024 Eye swelling Medications LETAIRIS 5 mg tablet 5 mg. 05/05/2024 Active cyanocobalamin, vitamin B-12, 1000 MCG tablet Take 1 tablet by mouth every morning. 03/15/2024 Active folic acid (FOLVITE) 1 MG tablet Take 1 tablet by mouth every morning. 03/15/2024 Active furosemide (LASIX) 20 MG tablet Take 20 mg by mouth. 03/15/2024 Active gabapentin (NEURONTIN) 100 MG capsule Take 100 mg by mouth. 04/16/2024 Active metOLazone (ZAROXOLYN) 2.5 MG tablet Take 2.5 mg by mouth. 05/05/2024 Active oxyCODONE 5 MG immediate release tablet Take 5 mg by mouth. 02/12/2024 Active pantoprazole (PROTONIX) 40 MG tablet Take 1 tablet by mouth 2 (two) times a day. 03/15/2024 Active QUEtiapine (SEROQUEL) 25 MG tablet Take 25 mg by mouth. 04/24/2024 Active ORENITRAM 1 mg TbER ER tablet Take 1 mg by mouth. 05/07/2024 Active latanoprost (XALATAN) 0.005 % ophthalmic solution Place 1 drop into each eye. 02/10/2024 Active Family History Medical History Relation Comments Heart disease Father Diabetes Mother Relation Status Comments Father Mother Social History Tobacco Use Types Packs/Day Years Used Date Smoking Tobacco: Never Assessed Education Answer Date Recorded Are you interested in more education? Not on jerson e 06/19/2023 Are you concerned about learning? Not on file 06/19/2023 No 06/19/2023 No 06/19/2023 Digital Access Answer Date Recorded No 06/19/2023 No 06/19/2023 Reliable internet access at home? Not on file 06/19/2023 Device with a working camera? Not on file Comments Unknown Sex and Gender Information Value Date Recorded Sex Assigned at Not on file Legal Sex Female 7:18 PM EST Gender Identity Not on file Sexual Orientation Not on file Plan of Treatment Health Maintenance Due Date Last Done Comments Adult Td,Tdap Booster 1945 LIPID PANEL 1945 POTASSIUM LEVEL 1945 DEPRESSION SCREENING 1957 SMOKING Hx and SMOKELESS TOB ACCO SCREENING 1958 PNEUMOCOCCAL VACCINES (50+ y ears) (1 of 1 - PCV) 1995 ZOSTER VACCINES (1 of 2) 1995 OSTEOPOROSIS SCREENING INITI AL (ONE-TIME) 2010 RSV VACCINE (1 - 1-dose 75+ series) 2020 INFLUENZA VACCINE (#1) 2025 COVID-19 VACCINE ( - 2024-2 6 season) 2025 HEPATITIS A VACCINES Aged Out No long er eligible based on patient's age to complete this topic HIB VACCINES Aged Out No longer eligi ble based on patient's age to complete this topic MENINGOCOCCAL VACCINES (ACWY) Aged Out No longer eligible based on patient's age to complete this topic MENINGOCOCCAL VACCINES (B) Aged Out N o longer eligible based on patient's age to complete this topic Medical Devices Not on file Insurance MEDICARE PART A & B [employer] MEDICARE SUPPLEMENT MEDICARE PART A & B FOR LIFE MEDICARE SUPPLEMENT [facility] MEDICARE SUPPLEMENT MEDICARE PART A & B FOR LIFE MEDICARE SUPPLEMENT Member Subscriber Plan / Payer ( fective 2024-Present) Name:Iwona Romero Relation to Subscriber:Spouse Name:HEATHERPAOLO Escobar Date of :1944 (Home) Address: [address] [place] [address] Payer ID:[id number] (NAIC) Group ID:Not on file Type:[facility] Address: [place] [phone] MEDICARE PART A & B FOR LIFE MEDICARE SUPPLEMENT MEDICARE PART A & B [employer] MEDICARE SUPPLEMENT MEDICARE PART A & B [employer] MEDICARE SUPPLEMENT MEDICARE PART A & B [facility] MEDICARE SUPPLEMENT MEDICARE PART A & B FOR LIFE MEDICARE SUPPLEMENT Care Teams Stabilizing Machine Operator Relationship Specialty Start Date End Date Jermaine Lr MD [address] [place] [address] PCP - General Internal Medicine 05/30/17 Additional Source Comments The information contained in this document represents components of the legal health record. It is not the complete legal health record.[facility]
--- OUTSIDE RECORDS SUMMARY | 2025-09-25 14:48 | XMS_ITS | Encounter Summary ---
Author Organization [facility] Address [address] [place] [id number] Care Team Providers Care Ne[facility] Service [facility] Director Name Role Phone Referring, No Primary Care Provider Unavailabl e Encounter Details Date Type Department Care Team (Late st Contact Info) Description 06/17/2017 Abstract Neuromuscular Medicine at [address] [place] [id number] Leon Valentino MD [address] [place] [address] [phone] Social History Tobacco Use Types Packs/Day Years Used Date Smoking Tobacco: Never Assessed Comments Unknown Sex and Gender Information Value Date Recorded Sex Assigned at Female 12/22/2018 12:08 AM EST Legal Sex Female 10:03 AM EDT Gender Identity Female 12/22/2018 12:08 AM EST Sexual Orientation Straight 12/22/2018 12 :08 AM EST documented as of this encounter Plan of Treatment Upcoming Encounters Date Type Department Care Team (Late st Contact Info) Description 11/15/2025 11:20 AM EST Telemedicine Neuromuscular Medicine at [address] [place] [id number] Leon Valentino MD [address] [place] [phone] documented as of this encounter Visit Diagnoses Not on filedocumented in this encounter Care Teams Neighborhood Service Center Director Relationship Specialty Start Date End Date Referring, No PCP - General 05/04/25 Dr. Ronald Deluca [address] [place] [address] Drive [address] [place] [address] Physician Cardiovascular Disease 09/23/19 documented as of this encounter
--- OUTSIDE RECORDS SUMMARY | 2025-09-25 14:48 | XMS_ITS | Encounter Summary ---
Author Organization [facility] Address [address] [place] [address] Care Team Providers Care Head Char Filter Tank Tender Name Role Phone Jermaine Lazaro MD Primary Care Provider [phone] Encounter Details Date Type Department Care Team (Late st Contact Info) Description 12/14/2024 Lab Requisition [facility] - Main Lab [address] [place] [address] Jermaine Lazaro MD [address] [place] [address] Pneumonia, unspecified organism; Cr(e)st syndrome (CMS/HCC V24, CMS/HCC V28); Hypothyroidism, unspecified; Other hyperlipidemia; Secondary pulmonary arterial hypertension (CMS/HCC V24, CMS/HCC V28); Anxiety disorder, unspecified Social History Tobacco Use Types Packs/Day Years Used Date Smoking Tobacco: Never Smokeless Tobacco: Never Alcohol Use Standard Drinks/Week Comments Never 0 (1 standard drink = 0.6 oz pur e alcohol) Interpersonal Safety Answer Date Record ed Physical Abuse Unrecognized value 09/21/2024 Verbal Abuse Unrecognized value 09/21/2024 Comments No Sex and Gender Information Value Date Recorded Sex Assigned at Female 11/09/2024 1:36 PM EST Legal Sex Female 12:28 AM EST Gender Identity Female 11/09/2024 1:36 PM EST Sexual Orientation Straight 11/09/2024 1: 36 PM EST documented as of this encounter Plan of Treatment Upcoming Encounters Date Type Department Care Team (Late st Contact Info) Description 01/24/2026 10:30 AM EDT Office Visit [facility] Hematology Oncology [address] [place] [address] Marilee Rahman MD [address] [place] [address] documented as of this encounter Procedures Procedure Name Priority Date/Time Associated Diagnosis Comments THYROID STIMULATING HORMONE WITH REFLEX TO FREE T4 AND FREE T3 Routine 12/14/2024 3:36 PM EST Pneumonia, unspecified organism Cr(e)st syndrome (CMS/HCC) Hypothyroidism, unspecified Other hyperlipidemia Secondary pulmonary arterial hypertension (CMS/HCC) Anxiety disorder, unspecified VITAMIN B12 Routine 12/14/2024 3:36 PM EST Pneumonia, unspecified organism Cr(e)st syndrome (CMS/HCC) Hypothyroidism, unspecified Other hyperlipidemia Secondary pulmonary arterial hypertension (CMS/HCC) Anxiety disorder, unspecified COMPREHENSIVE METABOLIC PANEL Routine 12/14/2024 3:36 PM EST Pneumonia, unspecified organism Cr(e)st syndrome (CMS/HCC) Hypothyroidism, unspecified Other hyperlipidemia Secondary pulmonary arterial hypertension (CMS/HCC) Anxiety disorder, unspecified documented in this encounter Results * (ABNORMAL) Vitamin B12 (12/14/2024 3:36 PM EST) Vitamin B-12 >2,000(H) 250 - 900 pcg/mL LAB CHEMISTRY METHOD 12/14/2024 6:02 PM EST [facility] Blood Venous blood specimen / Unknown 12/14/2024 3:36 PM EST 12/14/2024 4:59 PM EST us Jermaine Lazaro MD LAB BLOOD ORDERABLES Final Res ult [facility] [address] [place] [address], [place] [phone] * Thyroid stimulating hormone with reflex to free t4 and free t3 (12/14/2024 3:36 PM EST) TSH 3.81 0.40 - 4.00 mcIU/mL LAB CHEMISTRY METHOD 12/14/2024 5:47 PM EST [facility] Blood Venous blood specimen / Unknown 12/14/2024 3:36 PM EST 12/14/2024 4:59 PM EST Jermaine Lazaro MD LAB BLOOD ORDERABLES Final Res ult Performing Organization Address [facility]/State/ZIP Co de Phone Number [facility] [address] [place] [address], [place] [phone] * (ABNORMAL) Comprehensive metabolic panel (12/14/2024 3:36 PM EST) Sodium 138 133 - 145 mmol/L LAB CHEMISTRY METHOD 12/14/2024 6:06 PM [facility] Potassium 4.0 3.5 - 5.5 mmol/L LAB CHEMISTRY METHOD 12/14/2024 6:06 PM [facility] Chloride 111(H) 96 - 110 mmol/L LAB CHEMISTRY METHOD 12/14/2024 6:06 PM [facility] CO2 20(L) 21 - 32 mmol/L LAB CHEMISTRY METHOD 12/14/2024 6:06 PM [facility] Anion Gap 7 3 - 11 LAB CHEMISTRY METHOD 12/14/2024 6:06 PM [facility] Glucose 95 70 - 100 mg/dL LAB CHEMISTRY METHOD 12/14/2024 6:06 PM [facility] BUN 36(H) 5 - 25 mg/dL LAB CHEMISTRY METHOD 12/14/2024 6:06 PM [facility] Creatinine 0.86 0.50 - 1.10 mg/dL LAB CHEMISTRY METHOD 12/14/2024 6:06 PM [facility] eGFR 69 >=60 mL/min/1. 73m2 LAB CHEMISTRY METHOD 12/14/2024 6:06 PM [facility] Comment:Calculation based on the Chronic Kidney Disease Epidemiology Collaboration (CKD-EPI) equation refit without adjustment for race. BUN/Creatinine Ratio 41.9 LAB CHEMISTRY METHOD 12/14/2024 6:06 PM [facility] Calcium 8.4(L) 8.5 - 10.5 mg/dL LAB CHEMISTRY METHOD 12/14/2024 6:06 PM [facility] AST (SGOT) 37 10 - 42 unit/L LAB CHEMISTRY METHOD 12/14/2024 6:06 PM [facility] ALT (SGPT) 54 10 - 60 unit/L LAB CHEMISTRY METHOD 12/14/2024 6:06 PM [facility] Alkaline Phosphatase 479(H) 42 - 121 unit/L LAB CHEMISTRY METHOD 12/14/2024 6:06 PM [facility] Comment:Results verified by repeat testing Total Protein 5.7(L) 6.0 - 8.0 g/dL LAB CHEMISTRY METHOD 12/14/2024 6:06 PM [facility] Albumin 2.6(L) 3.2 - 5.0 g/dL LAB CHEMISTRY METHOD 12/14/2024 6:06 PM [facility] Total Bilirubin 0.3 0.0 - 1.4 mg/dL LAB CHEMISTRY METHOD 12/14/2024 6:06 PM [facility] Blood Venous blood specimen / Unknown 12/14/2024 3:36 PM EST 12/14/2024 4:59 PM EST us Jermaine Lazaro MD LAB BLOOD ORDERABLES Final Res ult [facility] [address] [place] [address], documented in this encounter Visit Diagnoses Diagnosis Pneumonia, unspecified organism Cr(e)st syndrome ([facility] V24, [facility] V28) Systemic sclerosis Hypothyroidism, unspecified Other hyperlipidemia Secondary pulmonary arterial hypertension ([facility] V24, [facility] V28) Anxiety disorder, unspecified documented in this encounter Care Teams Head Char Filter Tank Tender Relationship Specialty Start Date End Date Jermaine Lazaro MD [address] [place] [address] PCP - General Procedural Nurse 02/06/22 documented as of this encounter
--- OUTSIDE RECORDS SUMMARY | 2025-09-25 14:48 | XMS_ITS | Encounter Summary ---
Author Organization [facility] Address [address] [place] [address] Care Team Providers Care Paper Sheeter Name Role Phone Referring, No Primary Care Provider Unavailabl e Encounter Details Date Type Department Care Team (Late st Contact Info) Description 02/11/2019 Scanned Document [facility] at [address] [place] [id number] Provider, Historical . Social History Tobacco Use Types Packs/Day Years Used Date Smoking Tobacco: Never Smokeless Tobacco: Never Alcohol Use Standard Drinks/Week Comments No 0 (1 standard drink = 0.6 oz pur e alcohol) Comments Unknown Sex and Gender Information Value [...] 11:20 AM EST Telemedicine Neuromuscular Medicine at [address] [place] [address] Leon Valentino MD [address] [place] [phone] documented as of this encounter Procedures Procedure Name Priority Date/Time Associated Diagnosis Comments LAB SCAN Routine 02/11/2019 documented in this encounter Results * Lab Scan (02/11/2019) Blood us Historical Provider LAB BLOOD ORDERABLES Final R esult documented in this encounter Visit Diagnoses Not on filedocumented in this encounter Care Teams Paper Sheeter Relationship Specialty Start Date End Date Referring, No PCP - General 05/04/25 Dr. Ronald Deluca [address] [place] [address] [place] [address] Physician Cardiovascular Disease 09/23/19 documented as of this encounter
--- OUTSIDE RECORDS SUMMARY | 2025-09-25 14:48 | XMS_ITS | Encounter Summary ---
Author Organization [facility] Address [address] [place] [address] Care Team Providers Care Rush Seater Name Role Phone Jermaine Lazaro MD Primary Care Provider [phone] Encounter Details Date Type Department Care Team (Late st Contact Info) Description 12/14/2024 Lab Requisition [facility] - Main Lab [address] [facility] [address] [place] [address] Kenneth Pena MD [address] [facility] [address] [place] [address] Secondary pulmonary arterial hypertension (CMS/HCC V24, CMS/HCC V28) Social History Tobacco Use Types Packs/Day Years [...] Description 01/24/2026 10:30 AM EDT Office Visit [facility] Hematology Oncology [address] [place] [phone] Marilee Rahman MD [address] [place] [address] documented as of this encounter Procedures Procedure Name Priority Date/Time Associated Diagnosis Comments COMPREHENSIVE METABOLIC PANEL Routine 12/14/2024 3:36 PM EST Secondary pulmonary arterial hypertension (CMS/HCC) documented in this encounter Results * (ABNORMAL) Comprehensive metabolic panel (12/14/2024 3:36 PM EST) Sodium 138 133 - 145 mmol/L LAB CHEMISTRY METHOD 12/14/2024 6:06 PM [facility] Potassium 4.0 3.5 - 5.5 mmol/L LAB CHEMISTRY METHOD 12/14/2024 6:06 PM [facility] Chloride 110 96 - 110 mmol/L LAB CHEMISTRY METHOD 12/14/2024 6:06 PM [facility] CO2 20(L) 21 - 32 mmol/L LAB CHEMISTRY METHOD 12/14/2024 6:06 PM [facility] Anion Gap 8 3 - 11 LAB CHEMISTRY METHOD 12/14/2024 6:06 PM [facility] Glucose 96 70 - 100 mg/dL LAB CHEMISTRY METHOD 12/14/2024 6:06 PM [facility] BUN 35(H) 5 - 25 mg/dL LAB CHEMISTRY METHOD 12/14/2024 6:06 PM [facility] Creatinine 0.85 0.50 - 1.10 mg/dL LAB CHEMISTRY METHOD 12/14/2024 6:06 PM [facility] eGFR 70 >=60 mL/min/1. 73m2 LAB CHEMISTRY METHOD 12/14/2024 6:06 PM [facility] Comment:Calculation based on the Chronic Kidney Disease Epidemiology Collaboration (CKD-EPI) equation refit without adjustment for race. BUN/Creatinine Ratio 41.2 LAB CHEMISTRY METHOD 12/14/2024 6:06 PM [facility] Calcium 8.2(L) 8.5 - 10.5 mg/dL LAB CHEMISTRY METHOD 12/14/2024 6:06 PM [facility] AST (SGOT) 36 10 - 42 unit/L LAB CHEMISTRY METHOD 12/14/2024 6:06 PM [facility] ALT (SGPT) 54 10 - 60 unit/L LAB CHEMISTRY METHOD 12/14/2024 6:06 PM [facility] Alkaline Phosphatase 485(H) 42 - 121 unit/L LAB CHEMISTRY METHOD 12/14/2024 6:06 PM [facility] Comment:Results verified by repeat testing Total Protein 5.7(L) 6.0 - 8.0 g/dL LAB CHEMISTRY METHOD 12/14/2024 6:06 PM [facility] Albumin 2.6(L) 3.2 - 5.0 g/dL LAB CHEMISTRY METHOD 12/14/2024 6:06 PM [facility] Total Bilirubin 0.4 0.0 - 1.4 mg/dL LAB CHEMISTRY METHOD 12/14/2024 6:06 PM [facility] Blood Venous blood specimen / Unknown 12/14/2024 3:36 PM EST 12/14/2024 5:03 PM EST us Kenneth Pena MD LAB BLOOD ORDERABLES Fin al Result [facility] [address] [place] [address], documented in this encounter Visit Diagnoses Diagnosis Secondary pulmonary arterial hypertension (CMS/HCC V24, CMS/HCC V28) documented in this encounter Care Teams Rush Seater Relationship Specialty Start Date End Date Jermaine Lazaro MD [address] [place] [address] PCP - General Equal Opportunity Officer 02/06/22 documented as of this encounter
--- OUTSIDE RECORDS SUMMARY | 2025-09-25 14:48 | XMS_ITS | Encounter Summary ---
Author Organization [facility] Address [address] [place] [address] Care Team Providers Care Bus Monitor Name Role Phone Referring, No Primary Care Provider Unavailabl e Encounter Details Date Type Department Care Team (Late st Contact Info) Description 03/28/2021 Scanned Document [facility] at [address] [place] [address] [place] [address] Deepak Mercado MD PhD [address] [place] [phone] Social History Tobacco Use Types Packs/Day Years Used Date Smoking Tobacco: Never Smokeless Tobacco: Never Alcohol Use Standard Drinks/Week Comments No 0 (1 standard drink = 0.6 oz pur e alcohol) Comments No Sex and Gender Information Value [...] 11:20 AM EST Telemedicine Neuromuscular Medicine at [address] [place] [address] [place] [address] Leon Valentino MD [address] [place] [phone] documented as of this encounter Visit Diagnoses Not on filedocumented in this encounter Care Teams Bus Monitor Relationship Specialty Start Date End Date Referring, No PCP - General 05/04/25 Dr. Ronald Deluca [address] [place] [address] Drive [address] [place] [address] Physician Cardiovascular Disease 09/23/19 documented as of this encounter
--- OUTSIDE RECORDS SUMMARY | 2025-09-25 14:48 | XMS_ITS | Encounter Summary ---
Author Organization [facility] Address [address] [place] [address] Care Team Providers Care Metal Buffer Name Role Phone Referring, No Primary Care Provider Unavailabl e Encounter Details Date Type Department Care Team (Late st Contact Info) Description 05/05/2018 Scanned Document [facility] at [address] [place] [phone] Provider, Historical . Social History Tobacco Use [...] 11:20 AM EST Telemedicine Neuromuscular Medicine at [address] [place] [phone] Leon Valentino MD [address] [place] [phone] documented as of this encounter Procedures Procedure Name Priority Date/Time Associated Diagnosis Comments LAB SCAN Routine 05/05/2018 documented in this encounter Results * Lab Scan (05/05/2018) Blood specimen (specimen) us Historical Provider LAB BLOOD ORDERABLES Final R esult documented in this encounter Visit Diagnoses Not on filedocumented in this encounter Care Teams Metal Buffer Relationship Specialty Start Date End Date Referring, No PCP - General 05/04/25 Dr. Ronald Deluca [address] [place] [address] [place] [address] Physician Cardiovascular Disease 09/23/19 documented as of this encounter
--- OUTSIDE RECORDS SUMMARY | 2025-09-25 14:48 | XMS_ITS | Clinical Summary ---
Author Organization [address] Address [address] [place] [phone] Phone Care Team Providers Care Soa Engineer Name Role Phone Referring, No Primary Care Provider Unavailabl e Allergies Active Allergy Reactions Criticality Noted Date Comments Bee Venom Protein (Honey Bee) Swelling Medium 11/09/2021 Cyclosporine Other (See Comments) Medium 01/08/2020 Other reaction(s): eyes swell shut Epinephrine 01/20/2018 Violent shaking Mushroom Vomiting 11/09/2021 Niacin Rash Low 06/28/2021 Medications * This document contains information received from the source organization and may not represent a complete record from that organization. propranolol (INDERAL) 40 MG Immediate Release tablet Take 1 tablet (40 mg total) by mouth 2 (two) times daily. Active COD LIVER OIL ORAL Take by mouth 2 (two) times daily. Active alpha lipoic acid 600 mg Cap Take 600 mg by mouth Every morning @0700.. Active alpha lipoic acid 300 mg Cap Take 300 mg by mouth every evening before dinner. Active levOCARNitine (CARNITOR) 330 mg tablet Take 1 tablet (330 mg total) by mouth daily. 5 tabs QAM, 4 tabs QPM Active creatine, bulk, 100 % Powd by [facility].(Non-Drug; Combo Route) route. 1/4 tsp 2 times per day Active VIT C/VIT E AC/LUT/COPPER/ZI NC (PRESERVISION LUTEIN ORAL) Take by mouth 2 (two) times daily. Active BRINZOLAMIDE (AZOPT OPHT) Apply to eye 2 (two) times daily. Both Eyes Active furosemide (LASIX) 20 MG tablet Take 60 mg by mouth daily. Active acetaminophen (TYLENOL) 325 mg tablet Take 1,000 mg by mouth every 6 (six) hours as needed. Active carboxymethylcel lulose sodium (REFRESH TEARS) 0.5 % ophthalmic solution Place 1 drop into both eyes daily as needed. PRN Active saliva stimulant comb. no.2 Liqd by Mucous Membrane route. PRN Active pantoprazole (PROTONIX) 40 mg tablet Take 1 tablet (40 mg total) by mouth Before Breakfast & Nightly. Active QUEtiapine (SEROQUEL) 12.5 mg Tab Immediate Release tablet Take 1 half-tablet (12.5 mg total) by mouth nightly. Active ascorbic acid, vitamin C, (VITAMIN C) 100 mg tablet Take 1 tablet (100 mg total) by mouth daily. Active bypli-4-tdd-epa- dpa-fish oil 1,050-1,200 mg Cap Take 1 tablet by mouth 2 (two) times daily (0800, 1800). Active naproxen (NAPROSYN) 250 mg tablet Take 1 tablet (250 mg total) by mouth daily as needed. Active treprostinil diolamine (ORENITRAM ORAL) Take 3 mg by mouth 3 (three) times daily. Every 8 hours Active sildenafil (REVATIO) 20 mg tablet Take 1 tablet (20 mg total) by mouth 3 (three) times daily. Active colostomy bag, non-sterile 1 (12 ) Misc 1 Bag by Misc.(Non-Drug; Combo Route) route as needed. 10 each 1 Active saliva substitute combo no.9 (BIOTENE DRY MOUTH ORAL RINSE) mouthwash Biotene Dry Mouth Oral Rinse Active creatine monohydrate Powd 2 (two) times daily. Active pseudoeph/DM/gua ifen/acetamin (VICKS DAYQUIL LIQUICAPS ORAL) DayQuil Liquicaps Active Elemental iron 60 mg (300 mg Ferrous sulfate) / 5 mL oral liquid Take 65 mg by mouth. 1 Active RIBOFLAVIN, VITAMIN B2, ORAL riboflavin (vitamin B2) Active COQ10, UBIQUINOL, ORAL Take 300 mg by mouth. 1 Active thiamine HCl (VITAMIN B-1 ORAL) Vitamin B-1 Active M[employer]ellaneous [employer] [place] Ostomy Pouch, 1-piece, 8931, 2 boxes (20 pouches/30days) Use as directed. DX: Z43.3 Colostomy 20 each 6 2 Active clobetasoL (TEMOVATE) 0.05 % ointment Apply topically 2 (two) times daily as needed. 30 g 1 2 Active ambrisentan (LETAIRIS) 5 mg tablet Take 1 tablet (5 mg total) by mouth daily. BRAND NAME - Takes BRAND name 30 tablet 11 2 Active torsemide (DEMADEX) 20 mg tablet Take 4 tablets (80 mg total) by mouth 2 (two) times daily. 4 Active lidocaine (LMX) 4 % creamIndications :Neuropathy (HC Code) Apply topically as needed for pain (foot pain). 90 g 3 5 Active Active Problems Problem Noted Date Diagnosed Date H/O total shoulder replacement 11/09/2021 Attention to colostomy (HC Code) 08/04/2021 Degeneration of lumbar intervertebral disc 08/04 Sjogren's syndrome 08/04/2021 Pulmonary arterial hypertension (HC Code) 2020 Spondylosis without myelopathy 08/04/2021 Spinal stenosis of lumbar region 08/04/2021 Rectal prolapse 04/27/2021 Essential hypertension 01/08/2020 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/20/2018 Inflammation of sacroiliac joint 07/06/2017 Calcinosis, Raynaud phenomen on, esophageal dysfunction, sclerodactyly, and telangiectasia (CREST) syndrome (HC Code) 10/21/1994 Social History Tobacco Use Types Packs/Day Years Used Date Smoking Tobacco: Never Smokeless Tobacco: Never Tobacco Cessation:Counseling Given: Not Answered Alcohol Use Standard Drinks/Week Comments No 0 (1 standard drink = 0.6 oz pur e alcohol) PHQ-2 Answer Date Recorded PHQ-2 Total Score 0 07/06/2021 Comments No Sex and Gender Information Value Date Recorded Sex Assigned at Female 12/22/2018 12:08 AM EST Legal Sex Female 10:03 AM EDT Gender Identity Female 12/22/2018 12:08 AM EST Sexual Orientation Straight 12/22/2018 12 :08 AM EST Last Filed Vital Signs Vital Sign Reading Time Taken Comments Blood Pressure 125/53 05/04/2025 11:22 AM EDT Pulse 71 05/04/2025 11:22 AM EDT Temperature 36.3 C (97.4 F) 08/03/2021 1:27 PM EDT Respiratory Rate 18 07/09/2021 10:09 AM EDT Oxygen Saturation 93% 05/04/2025 11:22 AM EDT Inhaled Oxygen Concentration - - Weight 47.2 kg (104 lb) 10/26/2024 11:30 AM EST per pt Height 160 cm (5' 3 ) 10/26/2024 11:30 AM EST pe r pt Body Mass Index 18.42 10/26/2024 11:30 AM EST Plan of Treatment Upcoming Encounters Date Type Department Care Team (Late st Contact Info) Description 11/15/2025 11:20 AM EST Telemedicine [facility] at [address] [place], [place] [address] Leon Valentino MD [address] [place] [address] [phone] Health Maintenance Due Date Last Done Comments Tetanus adult (Td q 10,TDAP once) 1965 Lipid disorder screening 1985 Pneumococcal Vaccine (50+ years) (1 of 1 - PCV) 1995 Shingles vaccine (Shingrix) (1 of 2 - Shingrix (RZV) 2 Dose Standard Series) 1995 Osteoporosis screening (bone density) 2010 RSV Immunization (1 - 1-dose 75+ series) 2020 Diabetes screening 07/07/2024 07/07/2021, 07/06/2021 Influenza vaccine 05/21/2025 08/10/2022, , 08/02/2010, Additional history exists Covid-19 vaccine series ( season) 2025 06/07/2021, 12/16/2020, 11/25/2020 Colon cancer screening, Colonoscopy Discontinued 09/21/2024 HIV screening Completed 09/21/2025 Breast cancer screening Discontinued Cervical cancer screening Discontinued Meningococcal B Vaccine Aged Out No l onger eligible based on patient's age to complete this topic Meningococcal Vaccine Aged Out No disha ju eligible based on patient's age to complete this topic Procedures Procedure Name Priority Date/Time Associated Diagnosis Comments BASIC METABOLIC PANEL Routine 07/07/2021 4:58 AM EDT from Last 3 Months or Most Recently Relevant to Health Maintenance Results * (ABNORMAL) Basic metabolic panel (07/07/2021 4:58 AM EDT) Sodium 132(L) 136 - 144 mmol/L 07/07/2021 6:02 AM EDT [facility] Potassium 3.8 3.3 - 5.1 mmol/L 07/07/2021 6:02 AM EDT [facility] Chloride 101 98 - 107 mmol/L 07/07/2021 6:02 AM T [facility] CO2 21 20 - 30 mmol/L 07/07/2021 6:02 AM T [facility] Anion Gap 10 7 - 17 07/07/2021 6:02 AM T [facility] Glucose 155(H) 70 - 100 mg/dL 07/07/2021 6:02 AM T [facility] BUN 14 8 - 23 mg/dL 07/07/2021 6:02 AM T [facility] Creatinine 0.96 0.40 - 1.30 mg/dL 07/07/2021 6:02 AM T [facility] Calcium 7.8(L) 8.8 - 10.2 mg/dL 07/07/2021 6:02 AM T [facility] BUN/Creatinine Ratio 14.6 8.0 - 23.0 07/07/2021 6:02 AM [facility] eGFR (Afr Amer) >60 >60 mL/min/1.7 3m2 07/07/2021 6:02 AM [facility] Comment: Values under 60mL/min/1.73m2 may indicate CKD if noted for more than 3 months. eGFR is only valid if creatinine is at steady state. eGFR (NON -Amber n) 57 >60 mL/min/1.7 3m2 07/07/2021 6:02 AM EDT [facility] Comment: Values under 60mL/min/1.73m2 may indicate CKD if noted for more than 3 months. eGFR is only valid if creatinine is at steady state. Blood Venipuncture / Unknown 07/07/2021 4:58 AM EDT 07/07/2021 5:22 AM EDT Deepak Mercado MD PhD LAB BLOOD ORDERABLES Final Result [facility] [address] [place] [address], [facility] [phone] from Last 3 Months or Most Recently Relevant to Health Maintenance Insurance MEDICARE [facility] MEDICARE FOR LIFE MEDICARE FOR LIFE Advance Directives * Full ACLS (Latest Code Status on File) Date Activated Date Inactivated Comments 07/06/2021 5:51 AM 07/09/2021 8:10 PM Question Answer Comments With Whom was the Code Status Discussed? Patient Care Teams Soa Engineer Relationship Specialty Start Date End Date Referring, No PCP - General 05/04/25 Dr. Ronald Deluca [address] [place] [address] [address] [place] [address] Physician Cardiovascular Disease 09/23/19
--- OUTSIDE RECORDS SUMMARY | 2025-09-25 14:48 | XMS_ITS ---
Author Organization [facility] Address [address] [place] [address] Phone Care Team Providers Care Project Landscape Architect Name Role Phone Jermaine Lazaro MD Primary Care Provider [phone] Active Problems Problem Noted Date Diagnosed Date Fluid overload 09/15/2025 Congestive heart failure (CHF) ([facility] V24, [facility] V28) 08/10/2025 Overview (08/10/2025): diastolic dysfunction Calcinosis, Raynaud phenomen on, esophageal dysfunction, sclerodactyly, and telangiectasia (CREST) syndrome ([facility] V24, [facility] V28) 08/10/2025 Aplastic anemia, unspecified ([facility] V24) 08/10 Hyperlipidemia 08/10/2025 Hypothyroidism 08/10/2025 Insomnia 08/10/2025 Primary pulmonary hypertension ([facility] V24, [facility] V28) 08/10/2025 Recurrent aspiration pneumonia ([facility] V24, [facility] V28) 08/10/2025 Sjogren syndrome, unspecified ([facility] V24) 07/22 Underweight 08/10/2025 Osteoarthritis of left [...] hematology and transfuse as needed Pulmonary hypertension ([facility] V24, [facility] V28 ) 01/18/2023 Overview (08/10/2025): Added automatically from request for surgery [id number] Myeloid dysplasia ([facility] V24, [facility] V28) 03/2022 Normocytic anemia 04/25/2022 H/O total shoulder replacement 11/09/2021 Degeneration of lumbar intervertebral disc 08/04 Spinal stenosis of lumbar region 08/04/2021 Spondylosis without myelopathy 08/04/2021 Rectal prolapse 04/27/2021 Essential hypertension 01/08/2020 Hyponatremia 01/08/2020 Carpal tunnel syndrome of left wrist 06/19/2019 Overview (08/10/2025): Problem Code: G56.02; Problem Code Type: ICD-10; Status: 'A'; 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/20/2018 Inflammation of sacroiliac joint ([facility] V24) 0 07/06/2017 Current Treatment and Therapy Plans CENTRAL VENOUS ACCESS ( CVA ) MAINTENANCE / BLOOD DRAW / CATHETER CLEARANCE / DRESSING CHANGE / FLUSH* Plan Start Date:08/24/2024 Plan Provider:Marilee Rahman MD Linked Problems Myeloid dysplasia (CMS/HCC V 24, [facility] V28)Iron deficiency anemia due to chronic blood loss Treatment Medications No medications scheduled. OUTPATIENT TRANSFUSION (PRN)* Plan Start Date:09/07/2024 Plan Provider:Marilee Rahman MD Linked Problems Myeloid dysplasia (CMS/HCC V 24, [facility] V28)Iron deficiency anemia due to chronic blood loss Treatment Medications No medications scheduled. Other Current Plans IRON SUCROSE ( VENOFER ) 300mg IV X 3* Plan Start Date:06/17/2025 Plan Provider:Marilee Rahman MD Linked Problems Iron deficiency anemia due t o chronic blood loss Treatment Medications No medications scheduled. Past Treatment and Therapy Plans No past plan information found.
--- OUTSIDE RECORDS SUMMARY | 2025-09-25 14:49 | XMS_ITS | Encounter Summary ---
Author Organization [facility] Address [address] [place] [address] Care Team Providers Care Finisher Special Stocks Name Role Phone Jermaine Lazaro MD Primary Care Provider [phone] Encounter Details Date Type Department Care Team (Late st Contact Info) Description 09/10/2025 Lab Requisition [facility] - Main Lab [address] [place] [address] Sharon Haskins MD [address] [id number] Myelodysplastic syndrome, unspecified (CMS/HCC V24, CMS/HCC V28); Hypothyroidism, unspecified; Vitamin D deficiency, unspecified; Hyperlipidemia, unspecified; Hypo-osmolality and hyponatremia; Other acute postprocedural pain; Essential (primary) hypertension; Pulmonary hypertension, unspecified (CMS/HCC V24, CMS/HCC V28); 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, CMS/HCC V28) Social History Tobacco [...] 01/24/2026 10:30 AM EDT Office Visit [facility] Hematology Oncology [address] [place] [address] Marilee Rahman MD [address] [place] [address] documented as of this encounter Visit Diagnoses Diagnosis Myelodysplastic syndrome, unspecified (CMS/HCC V24, CMS/HCC V28) Myelodysplastic syndrome, unspecified Hypothyroidism, unspecified Vitamin D deficiency, unspecified Hyperlipidemia, unspecified Hypo-osmolality and hyponatremia Other acute postprocedural pain Essential (primary) hypertension Unspecified essential hypertension Pulmonary hypertension, unspecified (CMS/HCC V24, CMS/HCC V28) 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
--- OUTSIDE RECORDS SUMMARY | 2025-09-25 14:49 | XMS_ITS | Encounter Summary ---
Author Organization [facility] Address [address] [place] [address] Care Team Providers Care Sewing Machine Operator Plastic Zipper Name Role Phone Jermaine Lazaro MD Primary Care Provider [phone] Encounter Details Date Type Department Care Team (Latest Contact Info) Description 06/14/2025 Lab Requisition [facility] - Main Lab [address] [place] [address] Jermaine Lazaro MD [address] [place] [address] Refractory anemia with ring sideroblasts (CMS/HCC V24, CMS/HCC V28); Cr(e)st syndrome (CMS/HCC V24, CMS/HCC V28); Hypothyroidism, unspecified; Anxiety disorder, unspecified; Secondary pulmonary arterial hypertension (CMS/HCC V24, CMS/HCC V28); Other hyperlipidemia Social History Tobacco Use Types Packs/Day Years [...] [facility] Hematology Oncology [address] [place] [phone] Marilee Rahman MD [address] [place] [address] documented as of this encounter Procedures Procedure Name Priority Date/Time Associated Diagnosis Comments THYROID STIMULATING HORMONE WITH REFLEX TO FREE T4 AND FREE T3 Routine 06/14/2025 11:33 AM EDT Refractory anemia with ring sideroblasts (CMS/HCC V24, CMS/HCC V28) Cr(e)st syndrome (CMS/HCC V24, CMS/HCC V28) Hypothyroidism, unspecified Anxiety disorder, unspecified Secondary pulmonary arterial hypertension (CMS/HCC V24, CMS/HCC V28) Other hyperlipidemia SST - GOLD Routine 06/14/2025 11:33 AM EDT Refractory anemia with ring sideroblasts (CMS/HCC V24, CMS/HCC V28) Cr(e)st syndrome (CMS/HCC V24, CMS/HCC V28) Hypothyroidism, unspecified Anxiety disorder, unspecified Secondary pulmonary arterial hypertension (CMS/HCC V24, CMS/HCC V28) Other hyperlipidemia COMPREHENSIVE METABOLIC PANEL Routine 06/14/2025 11:33 AM EDT Refractory anemia with ring sideroblasts (CMS/HCC V24, CMS/HCC V28) Cr(e)st syndrome (CMS/HCC V24, CMS/HCC V28) Hypothyroidism, unspecified Anxiety disorder, unspecified Secondary pulmonary arterial hypertension (CMS/HCC V24, CMS/HCC V28) Other hyperlipidemia documented in this encounter Results * SST tube (06/14/2025 11:33 AM EDT) Extra Tube Hold for add-ons. 06/14/2025 3:02 PM EDT [facility] Comment:Auto resulted. Blood Venous blood specimen / Unknown 06/14/2025 11:33 AM EDT 06/14/2025 1:27 PM EDT us Jermaine Lazaro MD LAB BLOOD ORDERABLES Final Res ult [facility] [address] [place] [address], * (ABNORMAL) Comprehensive metabolic panel (06/14/2025 11:33 AM EDT) Sodium 139 133 - 145 mmol/L LAB CHEMISTRY METHOD 06/14/2025 3:30 PM [facility] Potassium 4.4 3.5 - 5.5 mmol/L LAB CHEMISTRY METHOD 06/14/2025 3:30 PM [facility] Chloride 113(H) 96 - 110 mmol/L LAB CHEMISTRY METHOD 06/14/2025 3:30 PM [facility] CO2 21 21 - 32 mmol/L LAB CHEMISTRY METHOD 06/14/2025 3:30 PM [facility] Anion Gap 5 3 - 11 LAB CHEMISTRY METHOD 06/14/2025 3:30 PM [facility] Glucose 115(H) 70 - 100 mg/dL LAB CHEMISTRY METHOD 06/14/2025 3:30 PM [facility] BUN 27(H) 5 - 25 mg/dL LAB CHEMISTRY METHOD 06/14/2025 3:30 PM [facility] Creatinine 0.81 0.50 - 1.10 mg/dL LAB CHEMISTRY METHOD 06/14/2025 3:30 PM [facility] eGFR 74 >=60 mL/min/1. 73m2 LAB CHEMISTRY METHOD 06/14/2025 3:30 PM [facility] Comment:Calculation based on the Chronic Kidney Disease Epidemiology Collaboration (CKD-EPI) equation refit without adjustment for race. BUN/Creatinine Ratio 33.3 LAB CHEMISTRY METHOD 06/14/2025 3:30 PM EDT [facility] Calcium 8.2(L) 8.5 - 10.5 mg/dL LAB CHEMISTRY METHOD 06/14/2025 3:30 PM [facility] AST (SGOT) 36 10 - 42 unit/L LAB CHEMISTRY METHOD 06/14/2025 3:30 PM T [facility] ALT (SGPT) 40 10 - 60 unit/L LAB CHEMISTRY METHOD 06/14/2025 3:30 PM T [facility] Alkaline Phosphatase 467(H) 42 - 121 unit/L LAB CHEMISTRY METHOD 06/14/2025 3:30 PM [facility] Total Protein 5.8(L) 6.0 - 8.0 g/dL LAB CHEMISTRY METHOD 06/14/2025 3:30 PM T [facility] Albumin 2.7(L) 3.2 - 5.0 g/dL LAB CHEMISTRY METHOD 06/14/2025 3:30 PM [facility] Total Bilirubin 0.5 0.0 - 1.4 mg/dL LAB CHEMISTRY METHOD 06/14/2025 3:30 PM T [facility] Blood Venous blood specimen / Unknown 06/14/2025 11:33 AM EDT 06/14/2025 1:27 PM EDT us Jermaine Lazaro MD LAB BLOOD ORDERABLES Final Res ult [facility] [address] [place] [address], * Thyroid stimulating hormone with reflex to free t4 and free t3 (06/14/2025 11:33 AM EDT) TSH 3.96 0.40 - 4.00 mcIU/mL LAB CHEMISTRY METHOD 06/14/2025 3:56 PM EDT [facility] Blood Venous blood specimen / Unknown 06/14/2025 11:33 AM EDT 06/14/2025 1:27 PM EDT us Jermaine Lazaro MD LAB BLOOD ORDERABLES Final Res ult [facility] [address] [place] [address], documented in this encounter Visit Diagnoses Diagnosis Refractory anemia with ring sideroblasts ([facility] V24, [facility] V28) Low grade myelodysplastic syndrome lesions Cr(e)st syndrome ([facility] V24, [facility] V28) Systemic sclerosis Hypothyroidism, unspecified Anxiety disorder, unspecified Secondary pulmonary arterial hypertension ([facility] V24, [facility] V28) Other hyperlipidemia documented in this encounter Care Teams Sewing Machine Operator Plastic Zipper Relationship Specialty Start Date End Date Jermaine Lazaro MD [address] [place] [address] PCP - General Diabetologist 02/06/22 documented as of this encounter
--- OUTSIDE RECORDS SUMMARY | 2025-09-25 14:49 | XMS_ITS | Encounter Summary ---
Author Organization [facility] Address [address] [place] [address] Care Team Providers Care Assembling Motor Builder Name Role Phone Jermaine Lazaro MD Primary Care Provider [phone] Encounter Details Date Type Department Care Team (Latest Contact Info) Description 08/18/2025 Lab Requisition [facility] - Main Lab [address] [facility] [place] [phone] Paolo Euceda MD [address] [facility] [address] [place] [phone] [facility] (current) use of anticoagulants; Other abnormal glucose; Encounter for preprocedural laboratory examination Social History Tobacco Use Types Packs/Day Years [...] 01/24/2026 10:30 AM EDT Office Visit [facility] Hematology Oncology [address] [place] [phone] Marilee Rahman MD [address] [place] [address] documented as of this encounter Procedures Procedure Name Priority Date/Time Associated Diagnosis Comments ACTIVATED PARTIAL THROMBOPLASTIN TIME Routine 08/18/2025 2:06 PM EDT [facility]PC (current) use of anticoagulants Other abnormal glucose Encounter for preprocedural laboratory examination PROTHROMBIN TIME WITH INR Routine 08/18/2025 2:06 PM EDT professional tutor (current) use of anticoagulants Other abnormal glucose Encounter for preprocedural laboratory examination HEMOGLOBIN A1C Routine 08/18/2025 2:06 PM EDT [facility] (current) use of anticoagulants Other abnormal glucose Encounter for preprocedural laboratory examination documented in this encounter Results * Activated partial thromboplastin time (08/18/2025 2:06 PM EDT) aPTT 29.6 24.1 - 39.3 sec LAB COAGULATION METHOD 08/18/2025 3:13 PM EDT [facility] Blood Venous blood specimen / Unknown 08/18/2025 2:06 PM EDT 08/18/2025 2:45 PM EDT us Paolo Euceda MD LAB BLOOD ORDERABLES Final Re sult [facility] [address] [place] [address], * Prothrombin time with INR (08/18/2025 2:06 PM EDT) Protime 11.1 10.6 - 13.9 sec LAB COAGULATION METHOD 08/18/2025 3:13 PM EDT [facility] INR 0.9 LAB COAGULATION METHOD 08/18/2025 3:13 PM EDT [facility] Blood Venous blood specimen / Unknown 08/18/2025 2:06 PM EDT 08/18/2025 2:45 PM EDT us Paolo Euceda MD LAB BLOOD ORDERABLES Final Re sult Performing Organization Address [facility]/ZIP Co de Phone Number [facility] [address] [place] [address], [place] [phone] * Hemoglobin A1c (08/18/2025 2:06 PM EDT) Hemoglobin A1C 4.9 <6.5 % LAB CHEMISTRY METHOD 08/18/2025 9:23 PM EDT [facility] Mean Bld Glu Estim. 94 mg/dL LAB CHEMISTRY METHOD 08/18/2025 9:23 PM EDT [facility] Blood Venous blood specimen / Unknown 08/18/2025 2:06 PM EDT 08/18/2025 2:45 PM EDT us Paolo Euceda MD LAB BLOOD ORDERABLES Final Re sult Performing Organization Address [facility]/ZIP Co de Phone Number [facility] [address] [place] [address], [place] [phone] documented in this encounter Visit Diagnoses Diagnosis professional tutor (current) use of anticoagulants Long-term (current) use of anticoagulants Other abnormal glucose Encounter for preprocedural laboratory examination documented in this encounter Care Teams Assembling Motor Builder Relationship Specialty Start Date End Date Jermaine Lazaro MD [address] [place] [address] PCP - General Shelver 02/06/22 documented as of this encounter
--- OUTSIDE RECORDS SUMMARY | 2025-09-25 14:49 | XMS_ITS | Encounter Summary ---
Author Organization [facility] Address [address] [place] [address] Care Team Providers Care Compensation And Benefits Manager Name Role Phone Jermaine Lazaro MD Primary Care Provider [phone] Encounter Details Date Type Department Care Team (Late st Contact Info) Description 09/13/2025 Lab Requisition [facility] - Main Lab [address] [place] [address] Sharon Haskins MD [address] [phone] Myelodysplastic syndrome, unspecified (CMS/HCC V24, CMS/HCC V28); [...] care for your loved ones. For example, children counselor or elderly care for an older adult? [...] PM EST documented as of this encounter Functional Status * Calculated C-SSRS Risk Score (Lifetime/Recent) Answer Date of Assessment Author No Risk Indicated 09/16/2025 11:15 AM Maria T Lau, [place] * [place] Suicide Severity Rating Scale (Screener/Recent Self-Report) Question Answer Date of Assessment Author 1. Wish to be (Past 1 Month) No 09/16/2025 11:15 AM Amol Thacker RN 2. Non-Specific Active Suici elías Thoughts (Past 1 Month) No 09/16/2025 11:15 AM Me rogelio Thacker RN 6. Suicidal Behavior (Lifetime) No 11:15 AM Maria T Thacker, FREDERICK documented as of this encounter Plan of Treatment Upcoming Encounters Date Type Department Care Team (Late st Contact Info) Description 01/24/2026 10:30 AM EDT Office Visit [facility] Hematology Oncology [address] [place] [phone] Marilee Rahman MD [address] [place] [address] documented as of this encounter Visit Diagnoses Diagnosis Myelodysplastic syndrome, unspecified (CMS/HCC V24, CMS/HCC V28) Myelodysplastic syndrome, unspecified Hypothyroidism, unspecified Vitamin D deficiency, unspecified Hyperlipidemia, unspecified Hypo-osmolality and hyponatremia Other acute postprocedural pain Essential (primary) hypertension Unspecified essential hypertension Pulmonary hypertension, unspecified (CMS/HCC V24, CMS/HCC V28) 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
--- OUTSIDE RECORDS SUMMARY | 2025-09-25 14:49 | XMS_ITS | Encounter Summary ---
Author Organization [facility] Address [address] [place] [address] Care Team Providers Care Renal Dialysis Technician Name Role Phone Jermaine Lazaro MD Primary Care Provider [phone] Encounter Details Date Type Department Care Team (Late st Contact Info) Description 09/10/2025 Lab Requisition [facility] [address] [place] [address] Sharon Haskins MD [address] [id number] Unspecified diastolic (congestive) heart failure (CMS/HCC V24, CMS/HCC V28); Pulmonary hypertension, unspecified (CMS/HCC V24, CMS/HCC V28); Vitamin D deficiency, unspecified; 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, CMS/HCC V28); Other acute postprocedural pain; Hypo-osmolality and hyponatremia; Anemia, unspecified Social History Tobacco Use Types Packs/Day [...] Description 01/24/2026 10:30 AM EDT Office Visit [facility] Hematology Oncology [address] [place] [phone] Marilee Rahman MD [address] [place] [address] documented as of this encounter Procedures Procedure Name Priority Date/Time Associated Diagnosis Comments VITAMIN D 25 HYDROXY STAT 09/10/2025 1:06 [...] postprocedural pain Hypo-osmolality and hyponatremia Anemia, unspecified documented in this encounter Results * Vitamin D 25 hydroxy (09/10/2025 1:06 PM EST) Vit D, 25-Hydroxy 43.0 30.0 - 80.0 ng/mL 09/10/2025 2:05 PM EST [facility] Blood Venous blood specimen / Unknown Venipuncture / Unknown 09/10/2025 1:06 PM EST 09/10/2025 1:38 PM EST us Sharon Haskins MD LAB BLOOD ORDERABLES Fin al Result [facility] [address] [place] [address], [place] [phone] * (ABNORMAL) Vitamin B12 (09/10/2025 1:06 PM EST) [facility] Vitamin B-12 >2,000(H) 211 - 911 pcg/mL 09/10/2025 2:06 PM EST [facility] Blood Venous blood specimen / Unknown Venipuncture / Unknown 09/10/2025 1:06 PM EST 09/10/2025 1:38 PM EST Sharon Haskins MD LAB BLOOD ORDERABLES Fin al Result Performing Organization Address [facility]/ZIP Co de Phone Number [facility] [address] [place] [address], [place] [phone] * Folate (09/10/2025 1:06 PM EST) [facility] Folate >24.0 >=5.4 ng/ml 09/10/2025 2:06 PM EST [facility] Blood Venous blood specimen / Unknown Venipuncture / Unknown 09/10/2025 1:06 PM EST 09/10/2025 1:38 PM EST Narrative [facility] - 09/10/2025 2:06 PM EST Over the counter supplements containing high doses of biotin may interfere with this assay. If interference is suspected, patients shoud be retested after refraining from biotin supplements for 72 hours. Sharon Haskins MD LAB BLOOD ORDERABLES Fin al Result [facility] [address] [place] [address], [place] [phone] * Magnesium (09/10/2025 1:06 PM EST) [facility] Magnesium 2.1 1.9 - 2.6 mg/dL 09/10/2025 2:02 PM EST [facility] Blood Venous blood specimen / Unknown Venipuncture / Unknown 09/10/2025 1:06 PM EST 09/10/2025 1:38 PM EST Sharon Haskins MD LAB BLOOD ORDERABLES Fin al Result [facility] [address] [place] [address], * (ABNORMAL) Basic metabolic panel (09/10/2025 1:06 PM EST) Sodium 134 133 - 145 mmol/L 09/10/2025 2:02 PM [facility] Potassium 4.6 3.5 - 5.5 mmol/L 09/10/2025 2:02 PM [facility] Chloride 104 96 - 110 mmol/L 09/10/2025 2:02 PM [facility] CO2 25 21 - 32 mmol/L 09/10/2025 2:02 PM [facility] Anion Gap 5 3 - 11 09/10/2025 2:02 PM [facility] Glucose 110(H) 70 - 100 mg/dL 09/10/2025 2:02 PM [facility] BUN 34(H) 5 - 25 mg/dL 09/10/2025 2:02 PM [facility] Creatinine 0.83 0.50 - 1.10 mg/dL 09/10/2025 2:02 PM [facility] eGFR 71 >=60 mL/min/1. 73m2 09/10/2025 2:02 PM [facility] Comment:Calculation based on the Chronic Kidney Disease Epidemiology Collaboration (CKD-EPI) equation refit without adjustment for race. BUN/Creatinine Ratio 41.0 09/10/2025 2:02 PM [facility] Calcium 7.0(L) 8.5 - 10.5 mg/dL 09/10/2025 2:02 PM [facility] Blood Venous blood specimen / Unknown Venipuncture / Unknown 09/10/2025 1:06 PM EST 09/10/2025 1:38 PM EST us Sharon Haskins MD LAB BLOOD ORDERABLES Fin al Result [facility] [address] [place] [address], [place] [phone] * (ABNORMAL) Complete blood count (09/10/2025 1:06 PM EST) WBC 7.2 4.8 - 10.8 K/mcL LAB HEMETOLOGY METHOD 09/10/2025 1:43 PM [facility] RBC 3.30(L) 3.80 - 4.80 M/mcL LAB HEMETOLOGY METHOD 09/10/2025 1:43 PM [facility] Hemoglobin 10.2(L) 11.5 - 16.0 g/dL LAB HEMETOLOGY METHOD 09/10/2025 1:43 PM [facility] Hematocrit 33.3(L) 35.0 - 47.0 % LAB HEMETOLOGY METHOD 09/10/2025 1:43 PM [facility] MCV 100.9(H) 79.0 - 98.0 FL LAB HEMETOLOGY METHOD 09/10/2025 1:43 PM [facility] MCH 30.9 27.0 - 32.0 pcg LAB HEMETOLOGY METHOD 09/10/2025 1:43 PM [facility] MCHC 30.6(L) 32.0 - 37.0 g/dL LAB HEMETOLOGY METHOD 09/10/2025 1:43 PM [facility] RDW 19.3(H) 11.0 - 15.0 % LAB HEMETOLOGY METHOD 09/10/2025 1:43 PM EST [facility] Platelets 194 130 - 400 K/mcL LAB HEMETOLOGY METHOD 09/10/2025 1:43 PM EST [facility] MPV 9.7 7.0 - 11.0 FL LAB HEMETOLOGY METHOD 09/10/2025 1:43 PM EST [facility] NRBC 0.0 <1.0 % LAB HEMETOLOGY METHOD 09/10/2025 1:43 PM EST [facility] NRBC Absolute 0.00 <0.10 K/mcL LAB HEMETOLOGY METHOD 09/10/2025 1:43 PM EST [facility] Blood Venous blood specimen / Unknown Venipuncture / Unknown 09/10/2025 1:06 PM EST 09/10/2025 1:38 PM EST Sharon Haskins MD LAB BLOOD ORDERABLES Fin al Result [facility] [address] [place] [address], documented in this encounter Visit Diagnoses Diagnosis Unspecified diastolic (congestive) heart failure (CMS/HCC V24, CMS/HCC V28) Pulmonary hypertension, unspecified (CMS/HCC V24, CMS/HCC V28) Vitamin D deficiency, unspecified 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
--- OUTSIDE RECORDS SUMMARY | 2025-09-25 14:49 | XMS_ITS | Clinical Summary ---
Author Organization [facility] Prior to 03/20/[address] [place] [address] Care Team Providers Care Guide Foreign Tour Name Role Phone Jermaine Lr MD Primary Care Provider [phone] Allergies Active Allergy Reactions Criticality Noted Date Comments Bee Venom Swelling Medium 11/09/2021 Cyclosporine Medium 01/08/2020 Other reaction(s): eyes swell shut, Other (see comments) Other reaction(s): eyes swell shut Epinephrine Other (See Comments) High 01/20/2018 Other reaction(s): extreme shaking, shake Violent shaking rigor Mushroom Nausea And Vomiting Medium 11/09/2021 Niacin Rash Low 06/28/2021 Medications Medication Sig Dispensed Refills Start Date End Date Status Treprostinil Diolamine ER 1 MG TBCR 3 mg 3 (three) times a day. 0 Active propranolol (INDERAL) 40 MG tablet propranolol 40 mg tablet 0 12/25/2020 Active pantoprazole (PROTONIX) 40 MG tablet pantoprazole 40 mg tablet,delayed release 0 Active [place]-3 Fatty Acids ([place]-3 2100) 1050 MG CAPS Take 1 tablet by mouth. 0 Active Mouthwashes (Biotene Dry Mouth) LIQD Biotene Dry Mouth Oral Rinse 0 Active furosemide (LASIX) 20 MG tablet 3 tablets (60 mg total) daily. 0 07/30/2017 Active [facility]Non-Drug; Combo Route) route. 1/4 tsp 2 times per day 0 Active carboxymethylcellul ose (REFRESH PLUS) 0.5 % SOLN 1 drop daily as needed. 0 Active brinzolamide (AZOPT) 1 % ophthalmic suspension Azopt 1 % eye drops,suspension 0 02/20/2021 Active ascorbic acid (VITAMIN C) 100 MG tablet Take 1 tablet (100 mg total) by mouth. 0 Active ambrisentan (LETAIRIS) 5 MG tablet Letairis 5 mg tablet 0 09/01/2021 Acti ve Alpha-Lipoic Acid 600 MG CAPS Take 600 mg by mouth. 0 Ac tive COD LIVER OIL PO Take by mouth. 0 Acti ve Multiple Vitamins-Minerals (PRESERVISION AREDS PO) Take by mouth. 0 Active Riboflavin 100 MG CAPS Take by mouth. 0 Active Alpha-Lipoic Acid 300 MG CAPS Take 300 mg by mouth every evening. 0 Active levOCARNitine (CARNITOR) 330 MG tabletIndications:4 tabs in AM, 5 tabs in PM Take 1 tablet (330 mg total) by mouth. 0 Active Ubiquinol 300 MG CAPS Take 300 mg by mouth daily. 0 Active naproxen sodium (ALEVE) 220 MG tablet Take 1 tablet (220 mg total) by mouth as needed for pain. 0 Active QUEtiapine (SEROquel) 12.5 MG split tablet Take 1 split tablet (12.5 mg total) by mouth every night at bedtime. 0 Active sildenafil (REVATIO) 20 MG tablet 0 09/26/2023 Active metOLazone (ZAROXOLYN) 2.5 MG tablet 0 09/25/2023 Active vitamin B-1 (THIAMINE) 100 MG tablet Vitamin B-1 0 Active Vitamin D, Ergocalciferol, 50949 units CAPS Take 10,000 mg by mouth 3 (three) times a week. 0 Active lidocaine-prilocain e (EMLA) cream Apply topically as needed. 30 g 4 02/03/2024 Active vitamin B-12 (CYANOCOBALAMIN) tablet 1000 mcg Take 1 tablet (1,000 mcg total) by mouth daily. 0 03/15/2024 Active folic acid (FOLVITE) tablet 1 mg Take 1 tablet (1,000 mcg total) by mouth daily. 0 03/15/2024 Active HYDROmorphone (DILAUDID) 2 MG tablet Take 1 tablet (2 mg total) by mouth every 4 (four) hours as needed for pain. 0 Active Active Problems Problem Noted Date Diagnosed Date Iron deficiency anemia due to chronic blood loss 06/13/2023 Normocytic anemia 04/25/2022 Myeloid dysplasia 04/25/2022 Social History Tobacco Use Types Packs/Day Years Used Date Smoking Tobacco: Never Smokeless Tobacco: Never Alcohol Use Standard Drinks/Week Comments Never 0 (1 standard drink = 0.6 oz pur e alcohol) Sex and Gender Information Value Date Recorded Sex Assigned at Female 04/04/2022 2:11 PM EDT Gender Identity Female 04/05/2022 8:18 AM EDT Sexual Orientation Straight 04/05/2022 8: 18 AM EDT Job Start Date Occupation Industry Not on file Not on file Not on file Last Filed Vital Signs Vital Sign Reading Time Taken Comments Blood Pressure 130/34 08/13/2024 6:22 PM EDT Pulse 72 08/13/2024 6:22 PM EDT Temperature 36 C (96.8 F) 08/13/2024 6:22 PM EDT Respiratory Rate 18 08/13/2024 6:22 PM EDT Oxygen Saturation 98% 07/13/2024 11:56 AM EDT Inhaled Oxygen Concentration - - Weight 49.4 kg (109 lb) 04/10/2024 11:08 AM EDT Height - - Body Mass Index - - Plan of Treatment Health Maintenance Due Date Last Done Comments Depression Screening 1957 Preventative Health Evaluation 1963 Shingrix-Zoster Vaccine (1 of 2) 1964 Fall Risk Assessment 2010 Osteoporosis Screening (DEXA Scan) 2010 Pneumococcal Vaccine (2 of 2 - PCV) 09/28/2017 09/28/2016 DTap / Tdap / Td (1 - Tdap) 08/20/2019 08/19/2019 RSV Adult > 60+ Yrs or (1 - 1-dose 75+ series) 2020 COVID-19 Vaccine (4 - 2024- season) 2025 06/07/2021, 12/16/2020, 11/25/2020 Influenza Vaccine (#1) 2025 2, 09/13/2021, 09/13/2021, Additional history exists Hepatitis B Vaccines Aged Out No long er eligible based on patient's age to complete this topic RSV Ped < 20 months Aged Out No longe r eligible based on patient's age to complete this topic Care Teams Guide Foreign Tour Relationship Specialty Start Date End Date Jermaine Lr MD [address] [place] [address] PCP - General Hospitality Specialist 02/06/22
--- OUTSIDE RECORDS SUMMARY | 2025-09-25 14:49 | XMS_ITS ---
Author Organization [facility] Prior to 03/20/[address] [place] [address] Care Team Providers Care Export Clerk Name Role Phone Jermaine Lr MD Primary Care Provider [phone] Active Problems Problem Noted Date Diagnosed Date Iron deficiency anemia due to chronic blood loss 06/13/2023 Normocytic anemia 04/25/2022 Myeloid dysplasia 04/25/2022 Current Oncology Plans No current plan information found. Past Plans Radiation Treatments * No radiation treatments are documented for this patient in [facility]. Treatments may have been administered in another system.
--- OUTSIDE RECORDS SUMMARY | 2025-09-25 14:49 | XMS_ITS | Encounter Summary ---
Author Organization [facility] Address [address] [place] [address] Care Team Providers Care Foster Care Worker Name Role Phone Jermaine Lazaro MD Primary Care Provider [phone] Encounter Details Date Type Department Care Team (Late st Contact Info) Description 09/17/2025 Lab Requisition [facility] [address] [place] [address] Sharon Haskins MD [address] [phone] Myelodysplastic syndrome, unspecified (CMS/HCC V24, CMS/HCC V28); [...] for your loved ones. For example, child caregiver or elderly care for an older adult? [...] Description 01/24/2026 10:30 AM EDT Office Visit [facility] Hematology Oncology [address] [place] [address] Marilee Rahman MD [address] [place] [address] documented as of this encounter Visit Diagnoses Diagnosis Myelodysplastic syndrome, unspecified (CMS/HCC V24, CMS/HCC V28) Myelodysplastic syndrome, unspecified Hypothyroidism, unspecified Vitamin D deficiency, unspecified Hyperlipidemia, unspecified Hypo-osmolality and hyponatremia Other acute postprocedural pain Essential (primary) hypertension Unspecified essential hypertension Pulmonary hypertension, unspecified (CMS/HCC V24, CMS/HCC V28) 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
--- NOTE | 2025-09-25 14:50 | ED.WEAKNESS ---
HPI - Weakness General Chief complaint: Weakness Stated complaint: WEAKNESS Time Seen by Provider: 09/25/25 14:43 Source: patient and RN notes reviewed Mode of arrival: ambulatory Limitations: no limitations History of Present Illness ED Provider: Maria T Beltran PA-C HPI Narrative: This is a 80-year-old female, with a complex medical history that includes pulmonary hypertension (PH), Sjogren's disease, CREST syndrome, chronic anemia secondary to myelodysplastic syndrome, mitochondrial disease, chronic kidney disease (CKD), and gastrointestinal (GI) issues related to intestinal arteriovenous malformations and rectal prolapse, who presents emergency department due to global weakness and chest pain. Patient was admitted to [facility] on August 20, and was discharged on August 31 after a total left hip arthroplasty in the setting of left avascular necrosis status post subtrochanteric fracture fixation. Patient was initially seen as outpatient on 08/11 with left hip pain after a mechanical fall in May of 2024, due to her medical complexity and severe pulmonary hypertension, she underwent a right heart catheterization on 08/12/2025 which revealed elevated left heart filling pressures, mild pulmonary hypertension with preserved cardiac output, and was subsequently cleared for surgery. She underwent a left conversion total hip arthroplasty on 08/20 with no roxanna-operative complications. Given her complex medical history, decision was made to transfer patient to the MICU for postoperative close hemodynamic monitoring. She was hemodynamically stable and pain control was optimized and was transferred back to the floor on 08/23/2025. After her discharged from [facility] on August 31 she was transferred to a penitentiary facility in [place], [place]. Patient states that while she was at the nursing facility she started to develop chest pain. She states that because of the chest pain she was sent to [facility] where she was admitted for 2 weeks. She states that she was told that she had a heart infection . she states that she was discharged yesterday, it is unclear if she signed against medical advice or not, however she did mention that she told them that she would prefer to be home and did not like the treatment she was receiving from the facility. She also states that she has been monitored for a wound on her coccyx. She states that the chest pain that she is experiencing is the same chest pain she has had over the last 2 weeks. She states that the pain in her chest worsens with positional changes as well as lying flat. Patient reports she is here today as she is had increased generalized weakness over the last 2 weeks, and would like to go to a penitentiary facility however also reports concerns for chest pain. She states that she was previously on diuretics, discontinued yesterday as she was discharged from the hospital. She is a poor historian when it comes to her complex medical history. She otherwise denies any fevers, she endorses chills however this is chronic for her. She does endorse chest pain, and shortness of breath that worsens with lying flat. No abdominal pain, nausea, vomiting or diarrhea. no urinary symptoms. No other complaints or concerns at this time. MD Complaint: generalized weakness Relieving factors: none Exacerbating factors: none Associated symptoms: chest pain Related Data Home Medications ?Medication ?Instructions ?Recorded ?Confirmed ambrisentan 5 mg tablet (Letairis) 5 mg PO BEDTIME 09/25/25 09/26/25 brinzolamide 1 % eye 1 drp ophthalmic (eye) BID 09/25/25 09/26/25 drops,suspension gabapentin 100 mg capsule 200 mg PO BEDTIME 09/25/25 09/26/25 oxycodone 5 mg tablet 5 mg PO QID PRN Pain 09/25/25 09/26/25 perfluorohexyloctane (PF) 100 % 1 drp ophthalmic (eye) BID 09/25/25 09/26/25 eye drops (Miebo (PF)) quetiapine 25 mg tablet 25 mg PO BEDTIME 09/25/25 09/26/25 sildenafil (pulm.hypertension) 20 20 mg PO TID 09/25/25 09/26/25 mg tablet treprostinil diolamine 1 mg 3 mg PO TID 09/25/25 09/26/25 tablet,extended release (Orenitram) metoprolol succinate 50 mg 50 mg PO DAILY 09/26/25 09/26/25 tablet,extended release 24 hr vitamin B complex 1 tab PO DAILY 09/26/25 09/26/25 Allergies Allergy/AdvReac Type Severity Reaction Status Date / Time bee pollen (bees) Allergy Swelling Verified 09/25/25 14:17 niacin Allergy Rash Verified 09/25/25 14:16 epinephrine AdvReac Shakiness Verified 09/25/25 14:15 Review of Systems Review of Systems: Constitutional : No Fever, + Chills ENT/Mouth : No sore throat, No Rhinorrhea Eyes: No Eye Pain, No Swelling, No Redness Cardiovascular : + Chest Pain, + SOB Respiratory : No Cough, No Sputum Gastrointestinal : No Nausea, No Vomiting, No Diarrhea, No abdominal Pain Genitourinary : No Dysuria, No Hematuria Musculoskeletal : No joint pain, No Myalgias, No Joint Swelling Skin : No Skin Lesions, positive skin rash Neuro : No Weakness, No Numbness, No Headache All other systems reviewed and are negative Yes all other systems are reviewed and are negative Constitutional: Constitutional: Reports as per HPI [facility] Past Medical History Medical History (Updated 09/26/25 @ 12:41 by Mason Figueroa MD) GERD (gastroesophageal reflux disease) Avascular necrosis Myelodysplastic syndrome Telangiectasia Pulmonary hypertension OCD (obsessive compulsive disorder) Humeral fracture Chronic anemia CREST (calcinosis, Raynaud's phenomenon, esophageal dysfunction, sclerodactyly, telangiectasia) Sjogren syndrome Surgical History (Updated 09/25/25 @ 17:22 by Radha Noble NP) S/P ORIF (open reduction internal fixation) fracture H/O shoulder replacement Family History Family History (Updated 09/25/25 @ 17:23 by Radha Noble NP) Mother Diabetes mellitus Seizure disorder Father Past heart attack Son Diabetes mellitus type 1 Social History Social History Household Members: Spouse Housing Other:: [facility] Housing Do you presently have visiting nurse or other home services: Yes (13/05 aids) Patient Tobacco Use Status: Never used Tobacco Advance Directives Date on File: 10/21/14 service: No Physical Exam Vital Signs: Vital Signs: Last Vital Signs Temp 98.8 F 09/27/25 08:00 Pulse 110 H 09/27/25 09:53 Resp 17 09/27/25 08:00 BP 130/60 09/27/25 09:53 Pulse Ox 93 09/27/25 08:00 O2 Del Method Room Air 09/27/25 08:00 O2 Flow Rate 2 09/26/25 04:00 BMI result Body Mass Index 23.4 Const: General: cooperative, comfortable and no acute distress Nutritional Appearance: cachectic and thin Orientation/consciousness: patient oriented x3 Limitations: no limitations HEENT: Head: Yes normal to inspection, Yes normocephalic and Yes atraumatic Ears: hearing grossly normal bilaterally General nose exam: Normal external nose present Face and sinus: Yes normal facial exam Mouth: Normal oral and palatal mucosa present, oropharynx normal and moist mucous membranes Throat: Yes posterior oropharynx normal Eyes: General: appearance normal, both eyes and all related structures Eyelids: Yes eyelids normal Conjunctivae: conjunctivae normal Sclerae: sclerae normal Pupils: Equal, round and reactive pupils present EOM: EOMs intact bilaterally Neck: Neck: Yes normal visual inspection, Yes full ROM and Yes no lymphadenopathy Lymphatic: no lymphadenopathy noted Chest: Chest palpation & inspection: normal inspection of the chest Resp: Other: Diminished lung sounds throughout, faint crackles heard at bilateral lower lobes Effort & Inspection: normal respiratory effort and able to speak in complete sentences Auscultation: clear to auscultation bilaterally Cardio: Rate: regular rate Rhythm: regular rhythm Heart sounds: S1 normal heart sound present and S2 normal heart sound present GI: Other: + colostomy bag with brown stool noted. Abdomen is soft, mildly distended. Inspection: Yes normal to inspection Skin: Other: sacral ulcer noted, with granulation tissue noted, there is some purulence noted. profound erythema surrounding wound. Wound appears to be chronic General skin exam: no rashes or lesions noted Trauma: no lacerations or abrasions Wounds: no wounds Neuro: General: patient oriented x3 and moves all extremities Cranial nerves: Yes Equal, round and reactive pupils present Extrem: Other: patient with 2+ pitting edema noted to bilateral lower extremities extending into the bilateral thighs. Strong DP PT pulses. Lungs are well perfused. No calf tenderness General: Yes normal to inspection Right upper extremity: normal to inspection Left upper extremity: normal to inspection Right lower extremity: normal to inspection Left lower extremity: normal to inspection Medications Administered Generic Name Dose Route Start Last Admin Trade Name Freq PRN Reason Stop Dose Admin Acetaminophen 650 mg 09/25/25 18:06 09/25/25 22:06 Acetaminophen 325 Mg Tablet PO 650 mg Q6H PRN Administration Pain, Mild 1-3,fever,headache Dorzolamide HCl 1 drop 09/26/25 21:00 09/27/25 09:53 Dorzolamide Hcl 2 % Ophth Myranda 10 Ml Drpbtl EYE-BOTH 1 drop BID SILVANO Administration Gabapentin 200 mg 09/26/25 21:00 09/26/25 20:27 Gabapentin 100 Mg Capsule PO 200 mg BEDTIME SILVANO Administration Heparin Sodium (Porcine) 5,000 unit 09/25/25 19:00 09/27/25 06:18 Heparin Sodium,Porcine 5,000 Unit/Ml Vial SUBCUT Not Given Q12H SILVANO Furosemide 200 mg/ Sodium 100 mls @ 1 mls/hr 09/25/25 19:00 09/27/25 07:46 Chloride IVCONT 2 mg/hr .Q24H SILVANO 1 mls/hr 2 MG/HR Administration Piperacillin Sod/Tazobactam 50 mls @ 100 mls/hr 09/26/25 12:00 09/27/25 06:43 Sod 3.375 gm/ Sodium Chloride IV Infused Q6H SILVANO Infusion Metoprolol Succinate 50 mg 09/27/25 09:00 09/27/25 09:53 Metoprolol Succinate Er 50 Mg Tab.Er.24h PO 50 mg DAILY SILVANO Administration Protocol Multivitamins/Vitamin C 1 tab 09/27/25 09:00 09/27/25 09:53 Multivitamin Tablet PO 1 tab DAILY SILVANO Administration Patient Own Med ( 5 mg 09/26/25 21:00 09/26/25 20:28 Ambrisentan [ PO 5 mg Letairis] 5 Mg BEDTIME SILVANO Administration Tablet) Patient Own Med ( 3 mg 09/26/25 15:00 09/27/25 09:55 Treprostinil PO 3 mg Diolamine [Orenitram TID SILVANO Administration ] 1 Mg Tablet Extended Release) Ondansetron HCl 4 mg 09/25/25 18:06 09/26/25 20:36 Ondansetron Hcl 4 Mg/2 Ml Vial IVPUSH 4 mg Q8H PRN Administration Nausea and Vomiting Oxycodone HCl 5 mg 09/26/25 11:39 09/26/25 23:54 Oxycodone Hcl Immed Release 5 Mg Tablet PO 5 mg QID PRN Administration Pain, Moderate(Pain Scale 4-6) Quetiapine Fumarate 25 mg 09/26/25 21:00 09/26/25 20:27 Quetiapine Fumarate 25 Mg Tablet PO 25 mg BEDTIME SILVANO Administration Sildenafil Citrate 20 mg 09/26/25 15:00 09/27/25 09:53 Sildenafil Citrate 20 Mg Tablet PO 20 mg TID SILVANO Administration Sodium Chloride 3 ml 09/26/25 00:00 09/27/25 09:52 0.9 % Sodium Chloride Flush 3 Ml Syringe IVFLUSH 3 ml QSHIFT SILVANO Administration Discontinued Medications Generic Name Dose Route Start Last Admin Trade Name Raad PRN Reason Stop Dose Admin Furosemide 20 mg 09/25/25 16:29 09/25/25 17:09 Furosemide 40 Mg/4 Ml Vial IVPUSH 09/25/25 16:30 20 mg ONCE ONE Administration Protocol Hydromorphone HCl 0.5 mg 09/25/25 22:09 09/25/25 22:42 Hydromorphone Hcl 0.5 Mg/0.5 Ml Syringe IVPUSH 09/25/25 22:10 0.5 mg ONCE ONE Administration Protocol Albumin Human 100 mls @ 100 mls/hr 09/26/25 12:00 09/26/25 18:20 Kedbumin 25 % IV 09/26/25 18:59 Infused Q6H SILVANO Infusion Vancomycin HCl 1,500 mg/ 500 mls @ 333.333 mls/hr 09/26/25 11:55 09/26/25 16:21 Sodium Chloride IV 09/26/25 13:24 Infused ONCE ONE Infusion Quetiapine Fumarate 25 mg 09/25/25 22:09 09/25/25 22:42 Quetiapine Fumarate 25 Mg Tablet PO 09/25/25 22:10 25 mg ONCE ONE Administration Medical Decision Making Medical Decision Making MDM Narrative: This is a 80-year-old female, with a complex medical history that includes pulmonary hypertension (PH), Sjogren's disease, CREST syndrome, chronic anemia secondary to myelodysplastic syndrome, mitochondrial disease, chronic kidney disease (CKD), and gastrointestinal (GI) issues related to intestinal arteriovenous malformations and rectal prolapse, who presents emergency department due to global weakness and chest pain. On arrival, patient hypertensive at 177/69, all other vital signs within normal limits. patient appears to be thin, and cachectic. Patient appears to be clinically fluid overloaded, concerning for anasarca versus CHF. Unfortunately we do not have access to [facility] therefore medical record request was placed. I was able to pull records in from [facility] for past medical history and admission in July through August. Ultrasound was performed by my attending physician, Dr. Saleem. Patient with notable abdominal ascites, pleural effusions bilaterally, right greater than left. Labs returned, she has no leukocytosis, H&H revealing a normocytic anemia 9.6/30.8, Similar to previous hemoglobin and hematocrit, most recent hemoglobin and hematocrit from [facility] medical records from 09/03/2025 was 10.0/31.6. chemistry revealing elevated troponin at 28.8 - we will repeat. BNP elevated at 8848, viral swabs negative. EKG revealing sinus tachycardia with PACs, NC interval 158, QT QTC 374/484. No STEMI. Patient with low CO2 at 14, VBG ordered. Patient will be admitted for anasarca, weakness. patient agreeable for hospital admission. Transfer of care initiated. Differential Diagnosis Differential Diagnoses: The differential diagnosis associated with the presentation includes Anasarca, CHF, failure to thrive, electrolyte derangement, Admission/Observation Consideration of admission/observation: Escalation of care including admission/observation considered Lab Data [facility] Lab Attestation statement: I reviewed the patient's lab results. see [facility] 09/27/25 07:04 09/27/25 07:04 Labs: Lab Results 09/25/25 09/25/25 09/25/25 Range/Units 15:42 17:00 17:48 WBC 8.3 (4.8-10.8) X10*3/uL RBC 3.12 L (4.20-5.50) X10*6/uL Hgb 9.6 L (12.0-16.0) g/dl Hct 30.8 L (37.0-47.0) % MCV 98.7 H (80.0-98.0) fL MCH 30.8 (27.0-33.0) pg MCHC 31.2 (31.0-35.0) g/dl RDW 18.4 H (11.0-16.0) % Plt Count 294 (160-400) X10*3/uL MPV 8.6 L (9.4-12.3) fL Immature Gran % (Auto) 0.4 (0.0-0.4) % Neut % (Auto) 87.8 H (45-73) % Lymph % (Auto) 5.8 L (20-40) % Archuleta % (Auto) 5.4 (2-11) % Eos % (Auto) 0.5 (0-4) % Baso % (Auto) 0.1 (0-2) % Lymph # (Auto) 0.5 L (1.2-4.9) X10*3/uL Archuleta # (Auto) 0.5 (0.1-1.2) X10*3/uL Eos # (Auto) 0.0 (0.0-0.4) X10*3/uL Baso # (Auto) 0.0 (0.0-0.2) X10*3/uL Abs Immat Gran (auto) 0.03 (0.00-0.03) X10*3/uL Absolute Neuts (auto) 7.3 (2.0-8.3) x10*3/uL Absolute Nucleated RBC 0.000 (0.0-0.012) X10*3/uL Nucleated RBC % (auto) 0.0 (0.0-0.2) /100WBC ESR 96 H (0-20) MM/HR VBG pH 7.44 H (7.32-7.43) VBG pCO2 22 mmHg VBG pO2 64 mmHg VBG HCO3 15 L (22-26) mmol/L VBG O2 Saturation 89.0 % VBG Base Excess -6.5 mmol/L Sodium 140 (135-145) mmol/L Potassium 4.4 (3.3-5.1) mmol/L Chloride 113 H (96-108) mmol/L Carbon Dioxide 14 L (22-29) mmol/L Anion Gap 17 (12-20) BUN 40 H (9-16) mg/dL Creatinine 1.17 (0.5-1.4) mg/dL Estim Creat Clear Calc 31.7 Estimated GFR 45 Random Glucose 86 (60-115) mg/dL Lactic Acid 1.4 (0.5-2.0) mmol/L Calcium 8.6 (8.4-10.2) mg/dL Magnesium 2.1 (1.6-2.6) mg/dL Total Bilirubin 0.3 (0.0-1.0) mg/dL Direct Bilirubin 0.2 (0.0-0.5) mg/dL AST 27 (5-31) U/L ALT 7 (0-31) U/L Alkaline Phosphatase 496 H (39-117) U/L Troponin I High Sens 28.8 H 29.5 H (<3.5-17.0) ng/L C-Reactive Protein 6.24 H (< or = 0.50) mg/dL NT-Pro-B Natriuret Pep 8848.0 H (<300) pg/mL Total Protein 5.8 L (6.5-8.0) g/dL Albumin 2.6 L (3.5-5.0) g/dL Influenza Type A (PCR) NEGATIVE (Negative) Influenza Type B (PCR) NEGATIVE (Negative) RSV RNA Qual (PCR) NEGATIVE (Negative) SARS-CoV-2 RNA (RT-PCR) NEGATIVE (Negative) Independent Interpretation I performed an independent interpretation of an: EKG Interpretation: sinus tachycardia with PACs at a ventricular rate of 101 beats per minute, NC interval 158, QT QTC 374/484. No STEMI Radiology Impression Discussion of test interpretation with radiology: I have reviewed the radiologist's reading. Radiologist Impression: [address] [id number] XRay Report Signed Patient: Iwona Romero MR#: [id number] : 1945 Acct:[id number] Age/Sex: 80 / F ADM Date: 09/25/25 Loc: .ED Attending Dr: Ordering Physician: Maria T Beltran Date of Service: 09/25/25 Procedure(s): XR chest 1V Accession Number(s): [id number] cc: Jermaine Lazaro MD; Maria T Beltran~ Reason for Exam: weakness CLINICAL HISTORY: weakness 1 view chest x-ray Comparison: None provided Findings: Diffuse interstitial prominence in both lungs. Small left pleural effusion concerning for pulmonary edema/fluid overload. Normal size heart. No acute fracture. IMPRESSION: Diffuse interstitial prominence in both lungs. Small left pleural effusion concerning for pulmonary edema/fluid overload. This document has been electronically signed by: Claudia Cowan MD on 09/25/2025 17:51:52 Dictated By: Claudia Cowan MD Critical Care Time Critical Care Time Critical Care Time: Yes Total Critical Care Time: 40 Attestation: I have personally provided critical care time exclusive of time spent on separately billable procedures. Time includes review of lab data, radiology results, discussion with consultants, and monitoring for potential decompensation. Intervention performed as documented. Discharge Plan Discharge Clinical Impression: Anasarca, Sacral decubitus ulcer, Weakness Patient Disposition: Admitted As Inpatient Interventions: Admission Worksheet (ED) Last Done: 09/25/25 20:44 Discharge Date/Time: 09/25/25 20:47
--- OUTSIDE RECORDS SUMMARY | 2025-09-25 14:50 | XMS_ITS | Encounter Summary ---
Author Organization [facility] Address [address] [place] [address] Care Team Providers Care Editing Computer Publisher Name Role Phone Jermaine Lazaro MD Primary Care Provider [phone] Encounter Details Date Type Department Care Team (Latest Contact Info) Description 08/09/2025 Lab Requisition [facility] [address] [place] [phone] Eric Duff, DO [address] [facility] [place] [phone] Encounter for other preprocedural examination; Personal history of (healed) traumatic fracture Social History Tobacco Use Types Packs/Day Years [...] 01/24/2026 10:30 AM EDT Office Visit [facility] Hematology Oncology [address] [place] [phone] Marilee Rahman MD [address] [place] [address] documented as of this encounter Procedures Procedure Name Priority Date/Time Associated Diagnosis Comments LAVENDER - EDTA Routine 08/09/2025 11:04 AM EDT Encounter for other preprocedural examination Personal history of (healed) traumatic fracture LT BLUE - NA CITRATE Routine 08/09/2025 11:04 AM EDT Encounter for other preprocedural examination Personal history of (healed) traumatic fracture BASIC METABOLIC PANEL Routine 08/09/2025 11:04 AM EDT Encounter for other preprocedural examination Personal history of (healed) traumatic fracture documented in this encounter Results * Lavender tube (08/09/2025 11:04 AM EDT) Extra Tube Hold for add-ons. 08/09/2025 1:01 PM EDT [facility] Comment:Auto resulted. Blood Venous blood specimen / Unknown 08/09/2025 11:04 AM EDT 08/09/2025 11:36 AM EDT us Eric Duff DO LAB BLOOD ORDERABLES Final Resul t [facility] [address] [place] [address], * Light blue tube (08/09/2025 11:04 AM EDT) Extra Tube Hold for add-ons. 08/09/2025 1:01 PM EDT [facility] Comment:Auto resulted. Blood Venous blood specimen / Unknown 08/09/2025 11:04 AM EDT 08/09/2025 11:36 AM EDT us Eric Duff DO LAB BLOOD ORDERABLES Final Resul t [facility] [address] [place] [address], [place] [phone] * (ABNORMAL) Basic metabolic panel (08/09/2025 11:04 AM EDT) Sodium 140 133 - 145 mmol/L LAB CHEMISTRY METHOD 08/09/2025 12:59 PM EDT [facility] Potassium 4.3 3.5 - 5.5 mmol/L LAB CHEMISTRY METHOD 08/09/2025 12:59 PM [facility] Chloride 115(H) 96 - 110 mmol/L LAB CHEMISTRY METHOD 08/09/2025 12:59 PM [facility] CO2 21 21 - 32 mmol/L LAB CHEMISTRY METHOD 08/09/2025 12:59 PM [facility] Anion Gap 4 3 - 11 LAB CHEMISTRY METHOD 08/09/2025 12:59 PM [facility] Glucose 115(H) 70 - 100 mg/dL LAB CHEMISTRY METHOD 08/09/2025 12:59 PM [facility] BUN 41(H) 5 - 25 mg/dL LAB CHEMISTRY METHOD 08/09/2025 12:59 PM T [facility] Creatinine 0.90 0.50 - 1.10 mg/dL LAB CHEMISTRY METHOD 08/09/2025 12:59 PM [facility] eGFR 65 >=60 mL/min/1. 73m2 LAB CHEMISTRY METHOD 08/09/2025 12:59 PM [facility] Comment:Calculation based on the Chronic Kidney Disease Epidemiology Collaboration (CKD-EPI) equation refit without adjustment for race. BUN/Creatinine Ratio 45.6 LAB CHEMISTRY METHOD 08/09/2025 12:59 PM EDT [facility] Calcium 8.2(L) 8.5 - 10.5 mg/dL LAB CHEMISTRY METHOD 08/09/2025 12:59 PM EDT [facility] Blood Venous blood specimen / Unknown 08/09/2025 11:04 AM EDT 08/09/2025 11:33 AM EDT us Eric Duff DO LAB BLOOD ORDERABLES Final Resul t [facility] [address] [place] [address], documented in this encounter Visit Diagnoses Diagnosis Encounter for other preprocedural examination Personal history of (healed) traumatic fracture documented in this encounter Care Teams Editing Computer Publisher Relationship Specialty Start Date End Date Jermaine Lazaro MD [address] [place] [address] PCP - General Machine Shop Repair Technician 02/06/22 documented as of this encounter
--- NOTE | 2025-09-25 15:00 | ECG_ITS ---
Test Reason : WEAKNESS Blood Pressure : */* mmHG Vent. Rate : 101 BPM Atrial Rate : 101 BPM P-R Int : 158 ms QRS Dur : 76 ms QT Int : 374 ms P-R-T Axes : 71 87 70 degrees QTcB Int : 484 ms Artifact in tracing Sinus tachycardia with Premature atrial complexes Otherwise normal ECG No previous ECGs available Referred By: Maria T Beltran Electronically Signed By: WAI RICHARD
[2025-09-25 15:49] LABS: MANUAL DIFF FLAG NO
[2025-09-25 15:50] LABS: Hematocrit 30.8 % (37.0-47.0); Hemoglobin 9.6 g/dl (12.0-16.0); Imm Gran Abs Auto 0.03 X10*3/uL (0.00-0.03); Imm Gran Pct Auto 0.4 % (0.0-0.4); Lymphocytes Absolute Auto 0.5 X10*3/uL (1.2-4.9); Mean Corpuscular HGB Conc 31.2 g/dl (31.0-35.0); Mean Corpuscular Hemoglobin 30.8 pg (27.0-33.0); Mean Corpuscular Volume 98.7 fL (80.0-98.0); NRBC Abs Auto 0.000 X10*3/uL (0.0-0.012); NRBC Pct Auto 0.0 /100WBC (0.0-0.2); Platelet Count 294 X10*3/uL (160-400); Red Blood Count 3.12 X10*6/uL (4.20-5.50); White Blood Count 8.3 X10*3/uL (4.8-10.8)
[2025-09-25 16:03] LABS: Alanine Aminotransferase 7 U/L (0-31); Albumin Level 2.6 g/dL (3.5-5.0); Alkaline Phosphatase 496 U/L (39-117); Anion Gap 17 (12-20); Aspartate Amino Transferase 27 U/L (5-31); Blood Urea Nitrogen 40 mg/dL (9-16); Calcium 8.6 mg/dL (8.4-10.2); Carbon Dioxide 14 mmol/L (22-29); Chloride 113 mmol/L (96-108); Creatinine Clr Calc Pharmacy 31.7; Estimated Glomerular Filt Rate 45; Magnesium 2.1 mg/dL (1.6-2.6); Potassium 4.4 mmol/L (3.3-5.1); Sodium 140 mmol/L (135-145); Total Protein 5.8 g/dL (6.5-8.0)
[2025-09-25 16:16] LABS: Troponin-I High Sensitivity 28.8 ng/L (<3.5-17.0)
[2025-09-25 16:26] LABS: Resp Syncy Virus RNA Qual PCR NEGATIVE (Negative); SARS COV2 PCR INHOUSE NEGATIVE (Negative)
[2025-09-25 17:09] VITALS: BP 161/70
[2025-09-25] MEDS: Furosemide 40 MG/4 ML VIAL 20 MG IVPUSH (17:09)
[2025-09-25 17:13] LABS: Erythrocyte Sedimentation Rate 96 MM/HR (0-20)
--- NOTE | 2025-09-25 17:20 | P.HPHOSP_ITS ---
History of Present Illness Date of Service: 09/25/25 Chief Complaint: edema 80-year-old woman with multiple medical problems including pulmonary hypertension, Sjogren syndrome, crest syndrome, heart failure with preserved ejection fraction, mild dysplastic syndrome with transfusion dependence, CKD stage 3, intestinal AV malformations, avascular necrosis presented to the ER with increased lower extremity edema. Patient admitted to [facility] on 08/20 and discharged on 09/03, during that admission she was treated for a total left hip arthroplasty in his setting of left avascular necrosis status post so trochanteric fracture fixation. Due to her complex medical history she was transferred to the medical ICU for close monitoring initially and then transferred to medical floor. She was discharged from [facility] to short-term rehab then according to the ER providers records she developed chest pain and went to [facility] and was admitted there for 2 weeks discharged just yesterday, according to the patient she was told that she has a ?heart infection? she also has a left chest IV access support. She is unable to say what antibiotics she was taken/is supposed to be taking. ER providers have requested medical records from [facility]. In the ER, her BNP is noted to be elevated at 8848, troponin 28.8 EKG with no ischemic changes. Elevated blood pressure 161/70, no fever leukocytosis, flu, RSV and COVID negative, chest x-ray imaging with no obvious consolidation. Plan will be to admit patient for further management and treatment of acute congestive heart failure. Review of Systems 2 Review of Systems: Denies any recent fever chills or decrease in appetite respiratory see HPI cardiovascular see HPI gastrointestinal denies any dysphagia abdominal pain nausea vomiting or diarrhea genitourinary denies any dysuria frequency or hematuria musculoskeletal denies any joint pain or swelling neuropsych denies any weakness or seizures all other systems reviewed are negative [facility] Medical History (Updated 09/25/25 @ 17:37 by ANJU Hair) GERD (gastroesophageal reflux disease) Avascular necrosis Myelodysplastic syndrome Telangiectasia Pulmonary hypertension OCD (obsessive compulsive disorder) Humeral fracture Chronic anemia CREST (calcinosis, Raynaud's phenomenon, esophageal dysfunction, sclerodactyly, telangiectasia) Sjogren syndrome Family History (Updated 09/25/25 @ 17:23 by Radha Noble NP) Mother Diabetes mellitus Seizure disorder Father Past heart attack Son Diabetes mellitus type 1 Surgical History (Updated 09/25/25 @ 17:22 by Radha Noble NP) S/P ORIF (open reduction internal fixation) fracture H/O shoulder replacement Social History Advance Directives: Yes Advance Directives Information Provided: No Advance Directives on File: No Do you have a plan to hurt others: No Plan Meds Allergies Allergy/AdvReac Type Severity Reaction Status Date / Time bee pollen (bees) Allergy Swelling Verified 09/25/25 14:17 niacin Allergy Rash Verified 09/25/25 14:16 epinephrine AdvReac Shakiness Verified 09/25/25 14:15 Home Medications ?Medication ?Instructions ?Recorded ?Confirmed ?Last Taken ?Type Orenitram See Rx Instructions .Route . COMPLEX 09/25/25 09/25/25 Unknown History ambrisentan 5 mg PO 1XD 09/25/25 5 Unknown History treprostinil diolamine 3 mg PO 3XD 09/25/25 5 Unknown History Physical Exam 2 Vital Signs and Narrative: Vital Signs: Last Vital Signs Temp 97.9 F 09/25/25 14:08 Pulse 96 09/25/25 14:08 Resp 18 09/25/25 14:08 BP 161/70 H 09/25/25 17:09 Pulse Ox 94 09/25/25 14:08 O2 Del Method Room Air 09/25/25 14:08 BMI result Body Mass Index 23.4 Appearing in no acute distress head is normocephalic atraumatic eyes pupils are PERRLA sclera is anicteric mouth throat mucous membranes are intact and moist neck is supple no lymphadenopathy, no JVD noted lung sounds are clear to auscultation heart regular rate rhythm, clear S1, S2, pitting edema from abdomen to feet positive bowel sounds, abdomen is soft, nontender neuro patient is alert x3, no focal deficits unstageable sacral ulcer Results Labs 09/25/25 15:42 09/25/25 15:42 Labs: Laboratory Results - last 24 hr 09/25/25 15:42 MCV 98.7 H MCH 30.8 MCHC 31.2 RDW 18.4 H Plt Count 294 MPV 8.6 L Immature Gran % (Auto) 0.4 Neut % (Auto) 87.8 H Lymph % (Auto) 5.8 L [place] % (Auto) 5.4 Eos % (Auto) 0.5 Baso % (Auto) 0.1 Lymph # (Auto) 0.5 L [place] # (Auto) 0.5 Eos # (Auto) 0.0 Baso # (Auto) 0.0 Abs Immat Gran (auto) 0.03 Absolute Neuts (auto) 7.3 Absolute Nucleated RBC 0.000 Nucleated RBC % (auto) 0.0 ESR 96 H Anion Gap 17 Estim Creat Clear Calc 31.7 Estimated GFR 45 Random Glucose 86 Calcium 8.6 Magnesium 2.1 Total Bilirubin 0.3 Direct Bilirubin 0.2 AST 27 ALT 7 Alkaline Phosphatase 496 H Troponin I High Sens 28.8 H C-Reactive Protein 6.24 H NT-Pro-B Natriuret Pep 8848.0 H Total Protein 5.8 L Albumin 2.6 L Influenza Type A (PCR) NEGATIVE Influenza Type B (PCR) NEGATIVE RSV RNA Qual (PCR) NEGATIVE SARS-CoV-2 RNA (RT-PCR) NEGATIVE Assessment and Plan (1) Anasarca: Status: Acute Plan 80-year-old woman with multiple medical problems including chronic CHF, CKD, Sjogren/crest/myelodysplastic syndrome admitted with acute on chronic heart failure exacerbation. Recently at [facility] and [facility]. Acute on chronic Heart failure with preserved ejection fraction exacerbation Last echocardiogram at [facility] on 02/2025 with EF of 66%, no regional wall abnormalities, severely dilated left atrium significant edema from abd to LE IV lasix drip Cardiology consultation Monitor on telemetry Daily weights Strict intake and output ERIC on CKD stage 3 Creatinine at [facility] on 09/03/2025, 0.74 Likely secondary to fluid overload Diurese If no improvement consider Nephrology consultation Cardiac infection ? endocarditis Diagnosed at [facility] Unable to find antibiotics that the patient was taking or was supposed to be taking medical records from [facility] has been requested, hold off prescribing any antibiotics until definitive diagnosis Sacral ulcer, unspecified stage cleanse with ns, place gauze and nonstick dsg Wound Care consultation Sjogren/CREST Stable at baseline History of myelodysplastic syndrome Cause for anemia Stable H&H at this time not requiring blood transfusion Monitor DVT prophylaxis with heparin Full code Medication reconciliation pending Quality Stroke Does the patient have a stroke diagnosis?: No VTE Prior VTE?: No VTE Risk Level:: Medical - moderate - high VTE Device Contraindication: Treatment Not Indicated VTE Drug Contraindication: N/A - Med Ordered
[2025-09-25 18:02] LABS: VBG HCO3 15 mmol/L (22-26); VBG O2 % Saturation 89.0 %; Venous Blood Gas Refer to POC result
[2025-09-25 18:12] LABS: Troponin-I High Sensitivity 29.5 ng/L (<3.5-17.0)
[2025-09-25 18:23] VITALS: BP 168/63; PULSE 101; RESP 18; TEMP 36.6
--- NOTE | 2025-09-25 20:02 | PC.NURSE ---
Pt is an 80y/o female w/ a very complex pmhx. Most recently she is s/p L hip surgery 08/10 at [facility], d/c'd to rehab, was unhappy w/ care and was sent to [facility] where she was tx'd for a heart infection, and an infection on her coccyx Pt was just d/c'd from [facility] yesterday and here today c/o requesting to go to [facility] secondary to severe weakness and unable to stand/walk . Pt is A&O x 4. She states prior to all of this happening she was at home and ambulated w/ walker. Today she was found to have a BNP of >8000. HRR in 80's and RA sats 94-95%. Pt was unable to recall the abx she was supposed to be on for her heart infection Pt also has a L port-a-cath that was accessed [employer]. Plan to start pt on lasix gtt. She was tx'd w/ 20mg of Lasix in the ED. Pt is A&O x 4. Pt also has a stage 2 on coccyx that came dressed by the [facility] nurse, culture was obtained and sent.
[2025-09-25 20:45] VITALS: BMI 23.2
[2025-09-25 21:11] VITALS: BP 177/74
[2025-09-25] MEDS: Furosemide 200 MG in 0.9 % Sodium Chloride 80 ML IVCONT (21:11)
[2025-09-25 21:24] VITALS: BP 166/60; PULSE 94; RESP 20; TEMP 36.6; O2SAT 98
[2025-09-26] VITALS (7 sets, daily range): BP systolic 114–157; BP diastolic 56–73; PULSE 80–120; RESP 16–20; TEMP 36.1–37; O2SAT 92–100
[2025-09-26 08:04] LABS: Hematocrit 29.2 % (37.0-47.0); Hemoglobin 8.9 g/dl (12.0-16.0); Mean Corpuscular HGB Conc 30.5 g/dl (31.0-35.0); Mean Corpuscular Hemoglobin 30.2 pg (27.0-33.0); Mean Corpuscular Volume 99.0 fL (80.0-98.0); NRBC Abs Auto 0.000 X10*3/uL (0.0-0.012); NRBC Pct Auto 0.0 /100WBC (0.0-0.2); Platelet Count 206 X10*3/uL (160-400); Red Blood Count 2.95 X10*6/uL (4.20-5.50); White Blood Count 4.4 X10*3/uL (4.8-10.8)
--- NOTE | 2025-09-26 08:41 | PHA.MEDREC ---
Addendum entered by Lore Sims [facility] 09/26/25 09:19: Confirmed medications with [facility] inpatient pharmacy, metoprolol was decreased to 50 mg while she was inpatient. Patient brought in her own Letairis and Orenitram Addendum entered by Lore Sims [facility] 09/26/25 08:57: Reviewed by pharmacist, Patient has been admitted at different facilities since 08/20, so was likely receiving her home medications at these facilities, Patient is confirming what her normal home medications are Original Note: Pharmacy Consult ? Medication Reconciliation Pharmacy has completed the medication reconciliation. confirmed medication list with patient and against pharmacy claims. Patient states they have not taken home medications outside of their eyedrops since 08/20. Updates to last taken date reflect this.
[2025-09-26 08:50] LABS: Blood Urea Nitrogen 39 mg/dL (9-16); Calcium 8.1 mg/dL (8.4-10.2); Creatinine Clr Calc Pharmacy 32.6; Estimated Glomerular Filt Rate 46
[2025-09-26 09:30] LABS: Anion Gap 13 (12-20); Carbon Dioxide 19 mmol/L (22-29); Chloride 113 mmol/L (96-108); Potassium 3.9 mmol/L (3.3-5.1); Sodium 141 mmol/L (135-145)
--- NOTE | 2025-09-26 11:41 | P.PNIM_ITS ---
Subjective Subjective Date of Service: 09/26/25 Interval History: weakness Physical Exam 2 Exam: Exam: General: AO X 3, frail ill-appearing, pitting edema Resp: CTA bilateral, no accessory muscles used CVS: S1,S2,RRR, murmur GI: soft, non tender, non distended Sacral ulcer Vital Signs: Vital Signs: Last Vital Signs Temp 98.3 F 09/26/25 07:51 Pulse 80 09/26/25 07:51 Resp 18 09/26/25 07:51 BP 157/71 H 09/26/25 07:51 Pulse Ox 100 09/26/25 04:00 O2 Del Method Room Air 09/26/25 07:51 O2 Flow Rate 2 09/26/25 04:00 BMI result Body Mass Index 23.2 Objective Data Active Medications Acetaminophen (Acetaminophen 325 Mg Tablet) 650 mg PO Q6H PRN PRN Reason: Pain, Mild 1-3,fever,headache Last Admin: 09/25/25 22:06 Dose: 650 mg Documented By: ANDREWS Calcium Carbonate (Calcium Carbonate 750 Mg Tab.Chew) 750 mg PO Q4H PRN PRN Reason: Heartburn Gabapentin (Gabapentin 100 Mg Capsule) 200 mg PO BEDTIME SILVANO Heparin Sodium (Porcine) (Heparin Sodium,Porcine 5,000 Unit/Ml Vial) 5,000 unit SUBCUT Q12H [facility] Last Admin: 09/26/25 09:11 Dose: Not Given Documented By: CA Non-Admin Reason: Patient Refused Furosemide 200 mg/ Sodium (Chloride) 100 mls @ 1 mls/hr IVCONT .Q24H [facility] Last Admin: 09/25/25 21:11 Dose: 2 mg/hr, 1 mls/hr Documented By: CHOCO Magnesium Hydroxide (Milk Of Magnesia 30 Ml Oral.Susp) 30 ml PO DAILY PRN PRN Reason: Constipation Melatonin (Melatonin 3 Mg Tablet) 6 mg PO BEDTIME PRN PRN Reason: Insomnia Metoprolol Succinate (Metoprolol Succinate Er 50 Mg Tab.Er.24h) 50 mg PO DAILY SILVANO; Protocol Multivitamins/Vitamin C (Multivitamin Tablet) 1 tab PO DAILY SILVANO Non-Formulary Medication (Ambrisentan [Letairis]) 5 mg PO BEDTIME SILVANO Non-Formulary Medication (Brinzolamide) 1 drop EYE-BOTH BID SILVANO Non-Formulary Medication (Treprostinil Diolamine [Orenitram]) 3 mg PO TID [facility] Ondansetron HCl (Ondansetron Hcl 4 Mg/2 Ml Vial) 4 mg IVPUSH Q8H PRN PRN Reason: Nausea and Vomiting Oxycodone HCl (Oxycodone Hcl Immed Release 5 Mg Tablet) 5 mg PO QID PRN PRN Reason: Pain, Moderate(Pain Scale 4-6) Quetiapine Fumarate (Quetiapine Fumarate 25 Mg Tablet) 25 mg PO BEDTIME SILVANO Sildenafil Citrate (Sildenafil Citrate 20 Mg Tablet) 20 mg PO TID [facility] Sodium Chloride (0.9 % Sodium Chloride Flush 3 Ml Syringe) 3 ml IVFLUSH QSHIFT SILVANO Last Admin: 09/26/25 09:11 Dose: Not Given Documented By: CA Non-Admin Reason: IV Running Labs 09/26/25 07:49 09/26/25 07:49 Labs: Laboratory Results - last 24 hr 09/25/25 09/25/25 09/25/25 15:42 17:00 17:48 MCV 98.7 H MCH 30.8 MCHC 31.2 RDW 18.4 H Plt Count 294 MPV 8.6 L Immature Gran % (Auto) 0.4 Neut % (Auto) 87.8 H Lymph % (Auto) 5.8 L [place] % (Auto) 5.4 Eos % (Auto) 0.5 Baso % (Auto) 0.1 Lymph # (Auto) 0.5 L [place] # (Auto) 0.5 Eos # (Auto) 0.0 Baso # (Auto) 0.0 Abs Immat Gran (auto) 0.03 Absolute Neuts (auto) 7.3 Absolute Nucleated RBC 0.000 Nucleated RBC % (auto) 0.0 ESR 96 H VBG pH 7.44 H VBG pCO2 22 VBG pO2 64 VBG HCO3 15 L VBG O2 Saturation 89.0 VBG Base Excess -6.5 Anion Gap 17 Estim Creat Clear Calc 31.7 Estimated GFR 45 Random Glucose 86 Lactic Acid 1.4 Calcium 8.6 Magnesium 2.1 Total Bilirubin 0.3 Direct Bilirubin 0.2 AST 27 ALT 7 Alkaline Phosphatase 496 H Troponin I High Sens 28.8 H 29.5 H C-Reactive Protein 6.24 H NT-Pro-B Natriuret Pep 8848.0 H Total Protein 5.8 L Albumin 2.6 L Influenza Type A (PCR) NEGATIVE Influenza Type B (PCR) NEGATIVE RSV RNA Qual (PCR) NEGATIVE SARS-CoV-2 RNA (RT-PCR) NEGATIVE 09/26/25 07:49 MCV 99.0 H MCH 30.2 MCHC 30.5 L RDW 18.2 H Plt Count 206 D MPV 9.1 L Immature Gran % (Auto) Neut % (Auto) Lymph % (Auto) [place] % (Auto) Eos % (Auto) Baso % (Auto) Lymph # (Auto) [place] # (Auto) Eos # (Auto) Baso # (Auto) Abs Immat Gran (auto) Absolute Neuts (auto) Absolute Nucleated RBC 0.000 Nucleated RBC % (auto) 0.0 ESR VBG pH VBG pCO2 VBG pO2 VBG HCO3 VBG O2 Saturation VBG Base Excess Anion Gap 13 Estim Creat Clear Calc 32.6 Estimated GFR 46 Random Glucose 60 Lactic Acid Calcium 8.1 L Magnesium Total Bilirubin Direct Bilirubin AST ALT Alkaline Phosphatase Troponin I High Sens C-Reactive Protein NT-Pro-B Natriuret Pep 59299.3 H Total Protein Albumin Influenza Type A (PCR) Influenza Type B (PCR) RSV RNA Qual (PCR) SARS-CoV-2 RNA (RT-PCR) Microbiology Microbiology Results: Microbiology 09/25/25 16:43 Gram Stain - Final Sacrum Routine Culture - Preliminary Culture in progress. Assessment and Plan (1) Sacral decubitus ulcer: Status: Acute Plan 80F PMH Sjogren syndrome, crest, chronic diastolic CHF, myelodysplastic syndrome, pulmonary hypertension, CKD 3, intestinal AV malformations, avascular necrosis presented with worsening edema and failure to thrive Acute on chronic diastolic CHF IV Lasix, IV albumin Acute kidney injury Suspect cardiorenal, continue diuresis ? Endocarditis Awaiting records from [facility] Sacral ulcer Follow up wound care Sjogren's with pulmonary hypertension Continue vasodilators Myelodysplastic syndrome Transfuse as needed DVT prophylaxis-heparin subQ Full code reason for continued hospitalization: IV diuresis Quality Stroke Does the patient have a stroke diagnosis?: No VTE Prior VTE?: No VTE Risk Level:: Medical - moderate - high VTE Device Contraindication: Treatment Not Indicated VTE Drug Contraindication: N/A - Med Ordered
--- NOTE | 2025-09-26 12:37 | P.CONCA_ITS ---
History of Present Illness History of Present Illness Date of Service: 09/26/25 Chief complaint: CHF Narrative: This is a cardiology consultation regarding evaluation for congestive heart failure. Patient with many comorbidities and we do not have all the information. It seems that she was recently admitted at [facility] as well as [facility]. Listed comorbidities include pulmonary hypertension, Sjogren's, crest syndrome, heart failure with preserved ejection fraction, myelodysplastic syndrome requiring transfusions, CKD, intestinal AV malformations, admitted for lower extremity swelling. Recent hip fracture requiring surgery at [facility] and then subsequent admission to [facility]. Per notes, described to have question of endocarditis but I am not entirely clear what the diagonal was. In the current admission, quite high NT pro BNP. Patient herself states the main issues rather significant weakness and she cannot get up from bed or do anything. Breathing seems okay but she is just resting. Any form of activity in the bed even turning causes significant discomfort everywhere. With regard to cardiac history, she denies any history of coronary disease or PCI or congestive heart failure. According to her, she has pulmonary hypertension being treated through a die attacher at [facility]. Review of Systems 2 Review of Systems: Yes all other systems are reviewed and are negative Constitutional: Constitutional: Reports as per HPI and Reports no additional constitutional complaints Eyes: Eyes: Reports as per HPI and Denies no additional eye complaints ENT: Denies system reviewed and no additional complaints, except as documented and Reports as per HPI Cardiovascular: Cardiovascular: Reports as per HPI, Reports no additional cardiovascular complaints, Denies acrocyanosis, Denies cool extremities, Denies chest pain, Reports leg edema, Denies lightheadedness, Denies palpitations and Denies dyspnea Respiratory: Respiratory: Reports as per HPI, Denies no additional respiratory complaints and Denies dyspnea Gastrointestinal: Gastrointestinal: Reports as per HPI and Denies no additional gastrointestinal complaints Genitourinary: Genitourinary: Reports as per HPI Musculoskeletal: Musculoskeletal: Reports no additional musculoskeletal complaints and Reports as per HPI Integumentary/Breasts: Skin/Breast: Reports system reviewed and no additional complaints, except as docu Neurologic: Reports system reviewed and no additional complaints, except as documented and Reports as per HPI Psychiatric: Psychiatric: Reports no additional psychiatric complaints and Reports as per HPI Endocrine: Endocrine: Reports no additional endocrine complaints, Reports as per HPI and Denies palpitations Hematologic/Lymphatic: Hematologic/Lymphatic: Reports no additional hematologic/lymphatic complaints and Reports as per HPI Allergic/Immunologic: Allergic/Immunologic: Reports no additional allergic/immunologic complaints and Reports as per HPI [facility] Past Medical History Medical History (Updated 09/26/25 @ 12:41 by Mason Figueroa MD) GERD (gastroesophageal reflux disease) Avascular necrosis Myelodysplastic syndrome Telangiectasia Pulmonary hypertension OCD (obsessive compulsive disorder) Humeral fracture Chronic anemia CREST (calcinosis, Raynaud's phenomenon, esophageal dysfunction, sclerodactyly, telangiectasia) Sjogren syndrome Family History Family History (Updated 09/25/25 @ 17:23 by Radha Noble NP) Mother Diabetes mellitus Seizure disorder Father Past heart attack Son Diabetes mellitus type 1 Surgical History Surgical History (Updated 09/25/25 @ 17:22 by Radha Noble NP) S/P ORIF (open reduction internal fixation) fracture H/O shoulder replacement Social History Social History Household Members: Spouse Housing Other:: [facility] Housing Do you presently have visiting nurse or other home services: Yes (13/05 aids) Patient Tobacco Use Status: Never used Tobacco Advance Directives Date on File: 10/21/14 Meds Allergies Allergy/AdvReac Type Severity Reaction Status Date / Time bee pollen (bees) Allergy Swelling Verified 09/25/25 14:17 niacin Allergy Rash Verified 09/25/25 14:16 epinephrine AdvReac Shakiness Verified 09/25/25 14:15 Active Medications: Current Medications Acetaminophen (Acetaminophen 325 Mg Tablet) 650 mg PO Q6H PRN PRN Reason: Pain, Mild 1-3,fever,headache Last Admin: 09/25/25 22:06 Dose: 650 mg Calcium Carbonate (Calcium Carbonate 750 Mg Tab.Chew) 750 mg PO Q4H PRN PRN Reason: Heartburn Dorzolamide HCl (Dorzolamide Hcl 2 % Ophth Myranda 10 Ml Drpbtl) 1 drop EYE-BOTH BID SILVANO Gabapentin (Gabapentin 100 Mg Capsule) 200 mg PO BEDTIME SILVANO Heparin Sodium (Porcine) (Heparin Sodium,Porcine 5,000 Unit/Ml Vial) 5,000 unit SUBCUT Q12H SILVANO Last Admin: 09/26/25 09:11 Dose: Not Given Furosemide 200 mg/ Sodium (Chloride) 100 mls @ 1 mls/hr IVCONT .Q24H SILVANO Last Admin: 09/25/25 21:11 Dose: 2 mg/hr, 1 mls/hr Albumin Human (Kedbumin 25 %) 100 mls @ 100 mls/hr IV Q6H [facility] Stop: 09/26/25 18:59 Piperacillin Sod/Tazobactam (Sod 3.375 gm/ Sodium Chloride) 50 mls @ 100 mls/hr IV Q6H [facility] Vancomycin HCl 1,500 mg/ (Sodium Chloride) 500 mls @ 333.333 mls/hr IV ONCE ONE Stop: 09/26/25 13:24 Magnesium Hydroxide (Milk Of Magnesia 30 Ml Oral.Susp) 30 ml PO DAILY PRN PRN Reason: Constipation Melatonin (Melatonin 3 Mg Tablet) 6 mg PO BEDTIME PRN PRN Reason: Insomnia Metoprolol Succinate (Metoprolol Succinate Er 50 Mg Tab.Er.24h) 50 mg PO DAILY SILVANO; Protocol Multivitamins/Vitamin C (Multivitamin Tablet) 1 tab PO DAILY [facility] Non-Formulary Medication (Ambrisentan [Letairis]) 5 mg PO BEDTIME SILVANO Non-Formulary Medication (Treprostinil Diolamine [Orenitram]) 3 mg PO TID [facility] Ondansetron HCl (Ondansetron Hcl 4 Mg/2 Ml Vial) 4 mg IVPUSH Q8H PRN PRN Reason: Nausea and Vomiting Oxycodone HCl (Oxycodone Hcl Immed Release 5 Mg Tablet) 5 mg PO QID PRN PRN Reason: Pain, Moderate(Pain Scale 4-6) Pharmacy Consult (Consult Rx Vancomycin Dosing) 1 each MISCELLANE DAILY PRN PRN Reason: Consult order Quetiapine Fumarate (Quetiapine Fumarate 25 Mg Tablet) 25 mg PO BEDTIME [facility] Sildenafil Citrate (Sildenafil Citrate 20 Mg Tablet) 20 mg PO TID [facility] Sodium Chloride (0.9 % Sodium Chloride Flush 3 Ml Syringe) 3 [facility] Last Admin: 09/26/25 09:11 Dose: Not Given Home Medications ?Medication ?Instructions ?Recorded ?Confirmed ?Last Taken ?Type ambrisentan 5 mg tablet (Letairis) 5 mg PO BEDTIME 04/1409/26/25 08/20/25 History brinzolamide 1 % eye 1 drp ophthalmic (eye) BID 1 11/26/24 09/26/25 09/25/25 History drops,suspension gabapentin 100 mg capsule 200 mg PO BEDTIME 09/25/25 1 11/27/24 08/20/25 History oxycodone 5 mg tablet 5 mg PO QID PRN Pain 5 09/26/25 Unknown History perfluorohexyloctane (PF) 100 % 1 drp ophthalmic (eye) BID 09/25/25 09/26/25 09/25/25 History eye drops (Miebo (PF)) quetiapine 25 mg tablet 25 mg PO BEDTIME 09/25/2508/20/25 History sildenafil (pulm.hypertension) 20 20 mg PO TID 5 09/26/25 08/20/25 History mg tablet treprostinil diolamine 1 mg 3 mg PO TID 09/25/2509/2608/20/25 History tablet,extended release (Orenitram) metoprolol succinate 50 mg 50 mg PO DAILY 09/26/2505/14 Unknown History tablet,extended release 24 hr vitamin B complex 1 tab PO DAILY 09/26/25 1205/1408/20/25 History Physical Exam 2 Vital Signs: Vital Signs: Last Vital Signs Temp 98.6 F 09/26/25 11:46 Pulse 87 09/26/25 11:46 Resp 20 09/26/25 11:46 BP 134/64 09/26/25 11:46 Pulse Ox 96 09/26/25 11:46 O2 Del Method Room Air 09/26/25 11:46 O2 Flow Rate 2 09/26/25 04:00 BMI result Body Mass Index 23.2 Const: General: comfortable, no acute distress, ill appearing and tired appearing Nutritional Appearance: thin and underweight O rientation/consciousness: patient oriented x3 HEENT: Other: Unremarkable Head: Yes normal to inspection Neck: Neck: Yes normal visual inspection Chest: Chest palpation & inspection: normal inspection of the chest Resp: Other: Limited auscultation due to her position. Cardio: Palpation: normal PMI Heart sounds: S1 normal heart sound present, S2 normal heart sound present, no gallops, no murmurs and no rubs GI: Palpation (GI): Soft to palpation Back/Spine/Pelvis: Other: unremarkable Skin: General skin exam: no rashes or lesions noted Neuro: General: patient oriented x3 Extrem: Other: 1+ swelling bilateral Psych: Mental Status: mental status grossly normal Objective Labs and Meds 09/26/25 07:49 09/26/25 07:49 Lab results: Laboratory Results - last 24 hr 09/25/25 09/25/25 09/25/25 15:42 17:00 17:48 WBC 8.3 RBC 3.12 L Hgb 9.6 L Hct 30.8 L MCV 98.7 H MCH 30.8 MCHC 31.2 RDW 18.4 H Plt Count 294 MPV 8.6 L Immature Gran % (Auto) 0.4 Neut % (Auto) 87.8 H Lymph % (Auto) 5.8 L [place] % (Auto) 5.4 Eos % (Auto) 0.5 Baso % (Auto) 0.1 Lymph # (Auto) 0.5 L [place] # (Auto) 0.5 Eos # (Auto) 0.0 Baso # (Auto) 0.0 Abs Immat Gran (auto) 0.03 Absolute Neuts (auto) 7.3 Absolute Nucleated RBC 0.000 Nucleated RBC % (auto) 0.0 ESR 96 H VBG pH 7.44 H VBG pCO2 22 VBG pO2 64 VBG HCO3 15 L VBG O2 Saturation 89.0 VBG Base Excess -6.5 Sodium 140 Potassium 4.4 Chloride 113 H Carbon Dioxide 14 L Anion Gap 17 BUN 40 H Creatinine 1.17 Estim Creat Clear Calc 31.7 Estimated GFR 45 Random Glucose 86 Lactic Acid 1.4 Calcium 8.6 Magnesium 2.1 Total Bilirubin 0.3 Direct Bilirubin 0.2 AST 27 ALT 7 Alkaline Phosphatase 496 H Troponin I High Sens 28.8 H 29.5 H C-Reactive Protein 6.24 H NT-Pro-B Natriuret Pep 8848.0 H Total Protein 5.8 L Albumin 2.6 L Influenza Type A (PCR) NEGATIVE Influenza Type B (PCR) NEGATIVE RSV RNA Qual (PCR) NEGATIVE SARS-CoV-2 RNA (RT-PCR) NEGATIVE 09/26/25 07:49 WBC 4.4 L RBC 2.95 L Hgb 8.9 L Hct 29.2 L MCV 99.0 H MCH 30.2 MCHC 30.5 L RDW 18.2 H Plt Count 206 D MPV 9.1 L Immature Gran % (Auto) Neut % (Auto) Lymph % (Auto) [place] % (Auto) Eos % (Auto) Baso % (Auto) Lymph # (Auto) [place] # (Auto) Eos # (Auto) Baso # (Auto) Abs Immat Gran (auto) Absolute Neuts (auto) Absolute Nucleated RBC 0.000 Nucleated RBC % (auto) 0.0 ESR VBG pH VBG pCO2 VBG pO2 VBG HCO3 VBG O2 Saturation VBG Base Excess Sodium 141 Potassium 3.9 Chloride 113 H Carbon Dioxide 19 L Anion Gap 13 BUN 39 H Creatinine 1.14 Estim Creat Clear Calc 32.6 Estimated GFR 46 Random Glucose 60 Lactic Acid Calcium 8.1 L Magnesium Total Bilirubin Direct Bilirubin AST ALT Alkaline Phosphatase Troponin I High Sens C-Reactive Protein NT-Pro-B Natriuret Pep 43336.3 H Total Protein Albumin Influenza Type A (PCR) Influenza Type B (PCR) RSV RNA Qual (PCR) SARS-CoV-2 RNA (RT-PCR) ECG Interpretation: EKG with artifact. Sinus rhythm at 101/Min; PACs; no clear ischemic changes; normal FL and corrected QT Assessment and Plan (1) CHF (congestive heart failure): Status: Acute Plan Overall presentation seems to be off generalized deterioration and failure to thrive then FL congestive heart failure. Nevertheless, her NT pro BNP is quite high and going higher. Initial was 8848 and 2nd set is 11,724. Low-grade troponin leak. Albumin is also low at 2.6. Elevated CRP/sed rate. Alkaline phosphatase is high. Creatinine is stable at 1.1. Currently, she is on IV diuretics and agree with that. Her albumin is quite low and that could also cause generalized swelling. We will need to get the recent records from [facility] as well as [facility] and if she had an echocardiogram and other cardiac workup. Specifically regarding the endocarditis diagnosis at [facility]. Echocardiogram pending tomorrow. We will follow with you. Procedures Date of Service Date of Service: 09/26/25
[2025-09-26] MEDS: Albumin Human 25 % 100 ML IV ×2 (12:53→17:17)
[2025-09-26] MEDS: oxyCODONE HCl Immed Release 5 MG TABLET PO ×3 (12:54→23:54)
--- NOTE | 2025-09-26 13:19 | PHA.PROG ---
Admission Date/Time: September 25, 2025 18:06 Indication: other Weight in k.4 kg Serum Creatinine - Last 168 Hours 09/25/25 09/26/25 15:42 07:49 Creatinine 1.17 1.14 Estimated CrCl and GFR - Last 168 Hours 09/25/25 09/26/25 15:42 07:49 Estim Creat Clear Calc 31.7 32.6 Estimated GFR 45 46 Vancomycin Loading Dose: 1500 Current Vancomycin Dosing Regimen: 1000 Q24H Vancomycin Monitoring using AUC goal of 400 - 600 range with trough as surrogate marker: 572 Date and Time for next Vancomycin Level to be drawn: 09/28 @1100 Pharmacist Comments on Vancomycin Plan: Vancomycin dosing will take advantage of [employer] as a clinical decision support tool that uses Bayesian modeling to calculate individual patient's pharmacokinetic parameters and forecast the patient's drug concentration time course with the target goal AUC 24 range of 400 - 600 mg/L/hr.
--- NOTE | 2025-09-26 14:40 | MHC.CM.PN ---
WALDEMAR IMM GIVEN 09/26, PATIENT DECLINED A COPY, COPY PLACED IN CHART. THIS CM MET WITH PATIENT, SHE STATES SHE LIVES AT HOME WITH HER , WHERE THEY RECEIVED 24 HOUR CARE AT HOME THROUGH [facility] C[facility]. DME: WHEELCHAIR. PATIENT STATES SHE FELL LAST MAY AND HAS NEVER BEEN THE SAME, STATES SHE HAS NOT REGAINED THE ABILITY TO WALK. ADDITIONALLY HER HAS DEMENTIA AND HE DETERIORATES WHEN SHE IS NOT AT HOME WITH HIM, WHICH IS WHY SHE FEELS AN URGENCY TO RETURN HOME. 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 SHE HAS DEFERRED ALL DECISION MAKING TO HER SON/MARYANN LIMA. PATIENT HAS REQUESTED THIS CM CONTACT CLARENCE TO DISCUSS FURTHER DETAILS WITH HIM. THIS CM PLACED CALL TO PATIENTS SON CLARENCE PER HER REQUEST, THE NUMBER ON FILE IS NOT CURRENTLY WORKING, UNABLE TO LEAVE A MESSAGE. DP: RETURN HOME/RESUME 24 HOUR CARE AT HOME, VIA BLS TRANSPORT. PCP: DR. SUSAN HOLLAND
[2025-09-26] MEDS: 0.9 % Sodium Chloride Flush 3 ML SYRINGE IVFLUSH ×2 (16:07→20:30)
[2025-09-26] MEDS: Dorzolamide HCl 2 % Ophth Sol 10 ML DRPBTL 1 DROP EYE-BOTH (20:27)
[2025-09-27] VITALS (7 sets, daily range): BP systolic 102–139; BP diastolic 52–84; PULSE 87–115; RESP 17–20; TEMP 36.7–37.4; O2SAT 88–94; BMI 23.2
--- NOTE | 2025-09-27 07:00 | CA_ITS ---
Transthoracic Echocardiogram Patient (Last, First, Middle): Iwona Romero, Gender: F Date of : 1945 Age: 80 Procedure Date: 09/27/2025 Procedure Type: Transthoracic E[place]ocardiogram [place] [facility] [place]: 160.02 cm Weight: 58.97 kg BSA: 1.61 m2 Heart Rate: 80 bpm BP: 130 / 60 mmHg Fixed Assets Accountant: RHONDA Referring MD: Radha Noble NP Agronomy Instructor: Cm Chowdhury MD Symptoms: chf, ? endocarditis Study Quality: Adequate ECG Rhythm: Sinus Conclusions: - 1. Normal LV ejection fraction of 65-70% severely increased LV wall thickness with increased gradient across the LVOT at rest at 20 mm Hg suggestive of obstructive physiology. Dynamic obstruction could not be evaluated on this study 2. Possible mild aortic stenosis and moderate mitral stenosis 3. No obvious vegetation seen on this study 4. RV systolic pressure or right atrial pressures were not calculated on this study Findings Left Ventricle Normal left ventricular size and systolic function. There is severely increased left ventricular wall thickness. The visually estimated ejection fraction is between 65-70%. There is dynamic left ventricular outflow tract obstruction. Spectral Doppler is indicative of an impaired relaxation filling pattern. Elevated filling pressures. Right Ventricle Normal right ventricular cavity size and systolic function. Atria The left atrium is likely dilated. There is no evidence of interatrial shunt. The right atrium is normal in size. Aortic Valve The aortic valve was not well visualized. There is mild aortic valve stenosis. The peak aortic velocity is 1.83 m/s with a calculated peak gradient of 13 mmHg. The mean gradient is 6 mmHg. The aortic valve area is 1.75 cm2. There is no aortic valve regurgitation. Mitral Valve There is moderate anterior and posterior mitral leaflet thickening. There is mild mitral annular calcification. There is no mitral valve regurgitation. There is moderate mitral valve stenosis. Pulmonic Valve The pulmonic valve was not well visualized. Tricuspid Valve Likely normal tricuspid valve structure and function. The right ventricular systolic pressure is not calculated. Great Vessels All visible segments of the aorta are normal in size. The pulmonary artery was not well visualized. There is no dilatation of the ascending aorta measuring 3.20 cm. Venous The inferior vena cava was not well visualized. Pericardium/Pleural There is no evidence of pericardial effusion. There is a left sided pleural effusion. Prior Study Comparison No prior study available for comparison. Measurements 2D Linear Measurements IVSd: 1.55 0.6-0.9/0.6-1.0 cm LVIDd: 2.67 3.9-5.3/4.2-5.9 cm LVIDd Index: 1.66 2.4-3.2/2.2-3.1 cm/m2 LVIDs: 1.25 2.0-3.6 cm LVPWd: 1.87 0.7-1.1 cm LA Diam: 3.40 2.7-3.8/3.0-4.0 cm LAIDs Index: 2.11 1.5-2.3 cm/m2 LV Mass: 215.11 67-162/88-224 g LV Mass Index: 133.61 43-95/49-115 g/m2 LVOT Diam: 1.70 3.0+(-)1.3 cm Mitral Valve MV VTI: 0.49 MV Pk Roberto: 2.28 MV Mn Roberto: 1.40 MV Pk Grad: 21.00 MV Mn Grad: 9.00 MV Pk E: 1.10 MV PK A: 2.03 MV Decel Time: 541.00 E/A: 0.50 E'Lateral: 3.70 E'Medial: 3.15 E/E' Med: 34.90 E/E' Lat: 29.70 PHT: 158.00 MVA PHT: 1.39 MVA Continuity: 1.14 Decel [place]: 2.03 Aortic Valve AoV Pk Roberto: 1.83 AoV Mn Roberto: 1.17 AoV VTI: 0.32 AoV Pk Grad: 13.00 Aov Mn Grad: 6.00 ELLEN Cont.VTI: 1.75 LVOT LVOT Pk Roberto: 1.45 LVOT Mn Roberto: 0.98 LVOT VTI: 0.25 LVOT Pk Grad: 8.00 LVOT Mn Grad: 5.00 LVOT Diam: 1.70 LVOT Area: 2.27 Diastolic Function MV Pk E: 1.10 MV Pk A: 2.03 E/A: 0.50 E'Medial: 3.15 E/E' Med: 34.90 E' Laterial: 3.70 E/E' Lat: 29.70 Right Ventricle TAPSE (mm): 18.30 TVS' Roberto: 14.70 Great Vessels Aorta Sinus of Valsalva: 3.00 2.0-3.5 cm Ao Asc: 3.20 2.1-3.4 cm Pulmonary Valve PV Pk Roberto: 1.22 Peak PV Grad: 6.00 Updated in Other Vendor System with Status of Final Cm Chowdhury MD electronically signed on 09/27/2025 11:47:20 AM with status of Final
[2025-09-27 07:38] LABS: Hematocrit 27.8 % (37.0-47.0); Hemoglobin 8.6 g/dl (12.0-16.0); Mean Corpuscular HGB Conc 30.9 g/dl (31.0-35.0); Mean Corpuscular Hemoglobin 30.8 pg (27.0-33.0); Mean Corpuscular Volume 99.6 fL (80.0-98.0); NRBC Abs Auto 0.000 X10*3/uL (0.0-0.012); NRBC Pct Auto 0.0 /100WBC (0.0-0.2); Platelet Count 193 X10*3/uL (160-400); Red Blood Count 2.79 X10*6/uL (4.20-5.50); White Blood Count 6.6 X10*3/uL (4.8-10.8)
[2025-09-27] MEDS: Furosemide 200 MG in 0.9 % Sodium Chloride 80 ML IVCONT (07:46)
[2025-09-27 07:58] LABS: Alanine Aminotransferase < 6 U/L (0-31); Albumin Level 2.6 g/dL (3.5-5.0); Alkaline Phosphatase 372 U/L (39-117); Anion Gap 13 (12-20); Aspartate Amino Transferase 24 U/L (5-31); Blood Urea Nitrogen 34 mg/dL (9-16); Calcium 7.9 mg/dL (8.4-10.2); Carbon Dioxide 20 mmol/L (22-29); Chloride 112 mmol/L (96-108); Creatinine Clr Calc Pharmacy 34.0; Estimated Glomerular Filt Rate 48; Magnesium 1.7 mg/dL (1.6-2.6); Potassium 3.2 mmol/L (3.3-5.1); Sodium 142 mmol/L (135-145); Total Protein 4.9 g/dL (6.5-8.0)
[2025-09-27] MEDS: 0.9 % Sodium Chloride Flush 3 ML SYRINGE IVFLUSH (09:52)
[2025-09-27] MEDS: Dorzolamide HCl 2 % Ophth Sol 10 ML DRPBTL 1 DROP EYE-BOTH ×2 (09:53→22:05)
[2025-09-27] MEDS: Metoprolol Succinate ER 50 MG TAB.ER.24H PO ×2 (09:53→22:06)
--- NOTE | 2025-09-27 10:54 | MHC.CLN ---
PT WITH INCREASED NUTRITION RISK R/T PRESSURE INJURY PO INTAKE 50% X1 MEAL DIET RX: 2GM NA PT RECEIVING ENSURE TID TO PROMOTE WOUND HEALING SUPPLEMENT PROVIDES 1050KCALS, 60G PROTEIN MONITOR PO INTAKE AND ENCOURAGE SUPPLEMENT SEE FULL ASSESSMENT
--- NOTE | 2025-09-27 12:17 | PM.PNCARD ---
Subjective Subjective Date of Service: 09/27/25 Principal diagnosis: CHF Interval history: Patient's main complaint in his pain at the coccyx site. Patient says her shortness of breath improved although when she moves around she gets chest pain. She does have a prior diagnose as of pulmonary arterial hypertension in his on meds for the same. Echocardiogram reviewed shows normal LV ejection fraction with severe left ventricular hypertrophy diastolic dysfunction. RV systolic pressure could not be calculated on this study but RV size and function appear to be within normal limits. This also mild aortic stenosis and possible moderate mitral stenosis. Patient has been diuresing well. Review of Systems Constitutional: Reports lethargy, Reports malaise and Reports weakness Eyes: Reports no additional eye complaints Cardiovascular: Reports chest pain with activity, Reports leg edema, Denies lightheadedness, Denies Loss of Consciousness, Denies palpitations and Reports dyspnea on exertion Respiratory: Reports no additional respiratory complaints and Reports dyspnea on exertion Gastrointestinal: Reports no additional gastrointestinal complaints Genitourinary: Reports no additional female genitourinary complaints Musculoskeletal: Reports no additional musculoskeletal complaints Skin/Breast: Reports system reviewed and no additional complaints, except as docu Reports system reviewed and no additional complaints, except as documented and Reports weakness Psychiatric: Reports no additional psychiatric complaints Endocrine: Denies palpitations Allergic/Immunologic: Reports no additional allergic/immunologic complaints Physical Exam Vital Signs: Last Vital Signs Temp 98.8 F 09/27/25 08:00 Pulse 110 H 09/27/25 09:53 Resp 17 09/27/25 08:00 BP 130/60 09/27/25 09:53 Pulse Ox 93 09/27/25 08:00 O2 Del Method Room Air 09/27/25 08:00 O2 Flow Rate 2 09/26/25 04:00 BMI result Body Mass Index 23.2 Const General: no acute distress, alert and awake Nutritional Appearance: thin and other (Frail-appearing) Orientation/consciousness: patient oriented x3 Neck Neck: Yes trachea midline, Yes supple and Yes JVD Resp Effort & Inspection: decreased respiratory effort Auscultation: no rales, no rhonchi and diminished lung sounds Cardio Jugular venous distension: JVD Rate: regular rate and tachycardic Rhythm: regular rhythm Heart sounds: S1 normal heart sound present, S2 normal heart sound present, no click, no gallops and Murmur heart sound present systolic Skin General skin exam: no rashes or lesions noted Neuro General: patient oriented x3 and no focal motor deficits Extrem General: No clubbing, No cyanosis and Yes edema Objective Labs and Meds 09/27/25 07:04 09/27/25 07:04 Lab results: Laboratory Results - last 24 hr 09/27/25 07:04 WBC 6.6 RBC 2.79 L Hgb 8.6 L Hct 27.8 L MCV 99.6 H MCH 30.8 MCHC 30.9 L RDW 18.1 H Plt Count 193 MPV 9.2 L Absolute Nucleated RBC 0.000 Nucleated RBC % (auto) 0.0 Sodium 142 Potassium 3.2 L Chloride 112 H Carbon Dioxide 20 L Anion Gap 13 BUN 34 H Creatinine 1.09 Estim Creat Clear Calc 34.0 Estimated GFR 48 Random Glucose 96 Calcium 7.9 L Magnesium 1.7 Total Bilirubin 0.3 Direct Bilirubin 0.2 AST 24 ALT < 6 Alkaline Phosphatase 372 H Total Protein 4.9 L Albumin 2.6 L Progress Note: A&P Assessment and plan (1) Decompensated heart failure: Status: Acute Assessment and Plan: Decompensated congestive heart failure predominantly right heart failure in the patient with prior diagnose with pulmonary arterial hypertension on medications for the same although by echocardiogram today does not appear to have significant RV dysfunction. She does have LV diastolic dysfunction elevated filling pressures significant left ventricular hypertrophy with mild obstructive physiology at rest across LVOT with possible mild aortic stenosis and moderate mitral stenosis. Will discuss with her primary pulmonary hypertension specialist about the diagnose. For now she is diuresing well. Would continue with gentle diuresis. Strict intake and output chart needs to be pursued. Trend BNP. Check electrolytes and replace as needed. I would consider adding Jardiance 10 mg to her regimen. Her tachycardia is predominantly sinus tachycardia with PACs. No atrial fibrillation. Can further increase metoprolol, would consider 25 mg q.6 hours. Her chest pain with arm activities unclear whether this is musculoskeletal. Given her prior diagnose as of pulmonary arterial hypertension on on appropriate meds for the same I would continue the same till we discussed with her specialist at [facility]. Will follow with you Time Spent With Patient Time: Total time managing care of this patient today ____ minutes. Progress Note: Quality Stroke Does the patient have a stroke diagnosis?: No Procedures Date of Service Date of Service: 09/27/25
[2025-09-27] MEDS: oxyCODONE HCl Immed Release 5 MG TABLET PO ×2 (13:23→22:02)
--- NOTE | 2025-09-27 13:45 | HO.WOUND ---
Wound Consult: Initial 80 yr old female admitted to [facility] on 09/25/25 - See progress notes and H&P for detailed history. Wound consult placed for coccyx. Patient agreeable to assessment and photo documentation. Patient seen with MULCHER OPERATOR at bedside. TT to provider for general surgery consult for coccyx, dressing placed and will decide treatment once seen by surgery later. Coccyx Etiology: coccyx unstageable pressure injury Present on Admission Measurements: 4cm x 2cm x 1cm undermining 11-1, 0.5cm Wound Bed: moist yellow necrotic tissue- bone palpable in base Drainage / Odor: small leonard no odor Edges: ? open- advancing edges with area of deep purple/black Roxanna wound: ? No Induration, Fluctuance or Warmth noted Pain: yes Goals of Treatment: ? debridement - medihoney place at visit- likely switch to wet to dry once seen by surgery (possible debridement) Left heel - Deep tissue pressure injury present on admission - noted on admission assessment as redness - appears as deflating blood blister - foam dressing applied Deep tissue pressure injury: Intact or non intact skin with localized are of non-blanchable deep red, maroon, purple discoloration OR epidermal separation revealing a dark wound bed OR blood filled blister. Pain and temperature changes often precede color changes, can show 48-72 hours later. May resolve without causing ulceration or full thickness skin loss, or it may evolve to reveal actual extent of tissue injury right heel intact pink and blanching- protective foam applied Recommendations: 1. Turn and Reposition every 2 hours and as needed for patient comfort. Use pillows or wedges to support off loading positions. 2. Off Load all bony prominences with use of pillows and heel boots if needed. Apply Preventative foams where needed. 3. Monitor for incontinence and moisture control, use barrier creams when needed for prevention and treatment. 4. Provide adequate and supplemental nutrition. 5. Order or Continue low air loss mattress. 6. When applicable maintain blood glucose levels per Providers order. Coccyx: cleanse with saline- apply triad roxanna wound- apply NS wet to dry, cover with foam, change daily and PRN. Bilateral heels: Elevate heels off of bed surface with pillows. Float heels off of pillows. Apply skin prep allow to dry. Apply heel foam dressings, peel back and assess Q shift and change every 5-7 days and PRN. Re-consult wound care Nurse for wound deterioration or wound changes.
--- NOTE | 2025-09-27 14:29 | PM.CNGS ---
History of Present Illness Consult details Consult date: 09/27/25 Reason for consult: wound care (sacral decubitus ulcer) Narrative: 80-year-old female with extensive PMH including pulmonary hypertension, Sjogren syndrome, crest syndrome, heart failure with preserved EF, mild dysplastic syndrome with transfusion dependence, CKD stage 3, intestinal AV malformations, avascular necrosis who initially presented to the ED with complaints of lower extremity edema. Patient has very complicated medical history over the past month including admission to [facility] on 08/20-09/03/25, during that admission she was treated for a total left hip arthroplasty in his setting of left avascular necrosis status s/p trochanteric fracture fixation. She was discharged from [facility] to short-term rehab then subsequently developed chest pain and went to [facility] where she was admitted for 2 weeks for possible endocarditis with discharge the day prior to presentation. Records are being obtained. She was admitted to the hospitalist service for acute on chronic heart failure exacerbation. She is on vanco and zosyn. General surgery was consulted for her sacral decubitus ulcer. She states she thinks got this during her [facility] admission. Review of Systems Constitutional: Constitutional: Denies chills and Denies fever(s) Gastrointestinal: Gastrointestinal: Denies abdominal pain and Denies vomiting Integumentary/Breasts: Skin/Breast: Denies rash PMFSH Past Medical History Medical History (Updated 09/27/25 @ 12:26 by Cm Chowdhury MD) GERD (gastroesophageal reflux disease) Avascular necrosis Myelodysplastic syndrome Telangiectasia Pulmonary hypertension OCD (obsessive compulsive disorder) Humeral fracture Chronic anemia CREST (calcinosis, Raynaud's phenomenon, esophageal dysfunction, sclerodactyly, telangiectasia) Sjogren syndrome Family History Family History (Updated 09/25/25 @ 17:23 by Radha [facility] NP) Mother Diabetes mellitus Seizure disorder Father Past heart attack Son Diabetes mellitus type 1 Surgical History Surgical History (Updated 09/25/25 @ 17:22 by Radha Noble NP) S/P ORIF (open reduction internal fixation) fracture H/O shoulder replacement Social History Social History Household Members: Spouse Housing Other:: [facility] Housing Do you presently have visiting nurse or other home services: Yes (13/05 aids) Patient Tobacco Use Status: Never used Tobacco Advance Directives Date on File: 10/21/14 service: No Meds Allergies Allergy/AdvReac Type Severity Reaction Status Date / Time bee pollen (bees) Allergy Swelling Verified 09/25/25 14:17 niacin Allergy Rash Verified 09/25/25 14:16 epinephrine AdvReac Shakiness Verified 09/25/25 14:15 Active Medications: Current Medications Acetaminophen (Acetaminophen 325 Mg Tablet) 650 mg PO Q6H PRN PRN Reason: Pain, Mild 1-3,fever,headache Last Admin: 09/25/25 22:06 Dose: 650 mg Calcium Carbonate (Calcium Carbonate 750 Mg Tab.Chew) 750 mg PO Q4H PRN PRN Reason: Heartburn Dorzolamide HCl (Dorzolamide Hcl 2 % Ophth Myranda 10 Ml Drpbtl) 1 drop EYE-BOTH BID [facility] Last Admin: 09/27/25 09:53 Dose: 1 drop Gabapentin (Gabapentin 100 Mg Capsule) 200 mg PO BEDTIME [facility] Last Admin: 09/26/25 20:27 Dose: 200 mg Heparin Sodium (Porcine) (Heparin Sodium,Porcine 5,000 Unit/Ml Vial) 5,000 unit SUBCUT Q12H [facility] Last Admin: 09/27/25 06:18 Dose: Not Given Furosemide 200 mg/ Sodium (Chloride) 100 mls @ 1 mls/hr IVCONT .Q24H [facility] Last Admin: 09/27/25 07:46 Dose: 2 mg/hr, 1 mls/hr Vancomycin HCl 1,000 mg/ (Sodium Chloride) 270 mls @ 270 mls/hr IV Q24H [facility] Last Admin: 09/27/25 13:38 Dose: 270 mls/hr Caspofungin 50 mg/ Sodium (Chloride) 250 mls @ 250 mls/hr IV Q24H [facility] Piperacillin Sod/Tazobactam (Sod 3.375 gm/ Sodium Chloride) 50 mls @ 100 mls/hr IV Q6H [facility] Magnesium Hydroxide (Milk Of Magnesia 30 Ml Oral.Susp) 30 ml PO DAILY PRN PRN Reason: Constipation Melatonin (Melatonin 3 Mg Tablet) 6 mg PO BEDTIME PRN PRN Reason: Insomnia Metoprolol Succinate (Metoprolol Succinate Er 50 Mg Tab.Er.24h) 50 mg PO DAILY [facility]; Protocol Last Admin: 09/27/25 09:53 Dose: 50 mg Multivitamins/Vitamin C (Multivitamin Tablet) 1 tab PO DAILY [facility] Last Admin: 09/27/25 09:53 Dose: 1 tab Patient Own Med ( Ambrisentan [ Letairis] 5 Mg Tablet) 5 mg PO BEDTIME [facility] Last Admin: 09/26/25 20:28 Dose: 5 mg Patient Own Med ( Treprostinil Diolamine [Orenitram ] 1 Mg Tablet Extended Release) 3 mg PO TID [facility] Last Admin: 09/27/25 09:55 Dose: 3 mg Ondansetron HCl (Ondansetron Hcl 4 Mg/2 Ml Vial) 4 mg IVPUSH Q8H PRN PRN Reason: Nausea and Vomiting Last Admin: 09/26/25 20:36 Dose: 4 mg Oxycodone HCl (Oxycodone Hcl Immed Release 5 Mg Tablet) 5 mg PO QID PRN PRN Reason: Pain, Moderate(Pain Scale 4-6) Last Admin: 09/27/25 13:23 Dose: 5 mg Pharmacy Consult (Consult Rx Vancomycin Dosing) 1 each MISCELLANE DAILY PRN PRN Reason: Consult order Quetiapine Fumarate (Quetiapine Fumarate 25 Mg Tablet) 25 mg PO BEDTIME [facility] Last Admin: 09/26/25 20:27 Dose: 25 mg Sildenafil Citrate (Sildenafil Citrate 20 Mg Tablet) 20 mg PO TID [facility] Last Admin: 09/27/25 09:53 Dose: 20 mg Sodium Chloride (0.9 % Sodium Chloride Flush 3 Ml Syringe) 3 ml IVFLUSH [facility] Last Admin: 09/27/25 09:52 Dose: 3 ml Home Medications ?Medication ?Instructions ?Recorded ?Confirmed ?Last Taken ?Type ambrisentan 5 mg tablet (Letairis) 5 mg PO BEDTIME 09/25/25 09/26/25 08/20/25 History brinzolamide 1 % eye 1 drp ophthalmic (eye) BID 09/25/25 09/26/25 09/25/25 History drops,suspension gabapentin 100 mg capsule 200 mg PO BEDTIME 09/25/25 09/26/25 08/20/25 History oxycodone 5 mg tablet 5 mg PO QID PRN Pain 09/25/25 09/26/25 Unknown History perfluorohexyloctane (PF) 100 % 1 drp ophthalmic (eye) BID 09/25/25 09/26/25 09/25/25 History eye drops (Miebo (PF)) quetiapine 25 mg tablet 25 mg PO BEDTIME 09/25/25 09/26/25 08/20/25 History sildenafil (pulm.hypertension) 20 20 mg PO TID 09/25/25 09/26/25 08/20/25 History mg tablet treprostinil diolamine 1 mg 3 mg PO TID 09/25/25 09/26/25 08/20/25 History tablet,extended release (Orenitram) metoprolol succinate 50 mg 50 mg PO DAILY 09/26/25 09/26/25 Unknown History tablet,extended release 24 hr vitamin B complex 1 tab PO DAILY 09/26/25 09/26/25 08/20/25 History Physical Exam Vital Signs: Vital Signs: Last Vital Signs Temp 98.0 F 09/27/25 12:00 Pulse 105 H 09/27/25 12:00 Resp 17 09/27/25 12:00 BP 102/54 L 09/27/25 12:00 Pulse Ox 88 L 09/27/25 12:00 O2 Del Method Room Air 09/27/25 12:00 O2 Flow Rate 2 09/26/25 04:00 BMI result Body Mass Index 23.2 Const: General: no acute distress and alert Nutritional Appearance: thin Resp: Effort & Inspection: normal respiratory effort GI: Other: soft distended end colostomy in LLQ, pink, liquid stool in appliance Skin: Other: decubitus ulcer- 4cm x 2cm with 1cm undermining superiorly - there is slough covering wound base however it is thin, no necrosis noted , bone is palpable centrally but not currently visible, surrounding tissue of wound macerated Results Labs 09/27/25 07:04 09/27/25 07:04 Labs: Abnormal lab results 09/27/25 Range/Units 07:04 RBC 2.79 L (4.20-5.50) X10*6/uL Hgb 8.6 L (12.0-16.0) g/dl Hct 27.8 L (37.0-47.0) % MCV 99.6 H (80.0-98.0) fL MCHC 30.9 L (31.0-35.0) g/dl RDW 18.1 H (11.0-16.0) % MPV 9.2 L (9.4-12.3) fL Potassium 3.2 L (3.3-5.1) mmol/L Chloride 112 H (96-108) mmol/L Carbon Dioxide 20 L (22-29) mmol/L BUN 34 H (9-16) mg/dL Calcium 7.9 L (8.4-10.2) mg/dL Alkaline Phosphatase 372 H (39-117) U/L Total Protein 4.9 L (6.5-8.0) g/dL Albumin 2.6 L (3.5-5.0) g/dL Short CBC 09/27/25 Range/Units 07:04 WBC 6.6 (4.8-10.8) X10*3/uL Hgb 8.6 L (12.0-16.0) g/dl Hct 27.8 L (37.0-47.0) % Plt Count 193 (160-400) X10*3/uL BMP 09/27/25 07:04 Sodium 142 Potassium 3.2 L Chloride 112 H Carbon Dioxide 20 L BUN 34 H Creatinine 1.09 Calcium 7.9 L Liver Function 09/27/25 Range/Units 07:04 Total Bilirubin 0.3 (0.0-1.0) mg/dL Direct Bilirubin 0.2 (0.0-0.5) mg/dL AST 24 (5-31) U/L ALT < 6 (0-31) U/L Alkaline Phosphatase 372 H (39-117) U/L Albumin 2.6 L (3.5-5.0) g/dL All other labs normal. Assessment and Plan (1) Sacral decubitus ulcer: Status: Acute Plan 80 year old female with extensive PMH and multiple recent hospital admissions with decubitus ulcer. General surgery consulted for input. There is a thin layer of slough that will likely improve with current wound care regimen of medihoney and silver alginate. Alternatively can attempt wet to dry packing to help debride. Bone is palpable but not currently visible. Continue good daily wound care, offloading, nutritional support. Will continue to follow for possible surgical debridement. CT scan ordered by hospitalist service for eval for osteomyelitis. Procedures Date of Service Date of Service: 09/27/25
--- NOTE | 2025-09-27 15:32 | HO.PM.IMPN ---
Subjective Subjective Date of Service: 09/27/25 Interval History: c/o dyspnea, improving poor historian; thinks she was diagnosed with 'heart infection' at [facility] but it was actually candidal esophagitis Review of Systems Review of Systems: Yes all other systems are reviewed and are negative Physical Exam Vital Signs: Vital Signs: Last Vital Signs Temp 98.0 F 09/27/25 12:00 Pulse 105 H 09/27/25 12:00 Resp 17 09/27/25 12:00 BP 102/54 L 09/27/25 12:00 Pulse Ox 88 L 09/27/25 12:00 O2 Del Method Room Air 09/27/25 12:00 O2 Flow Rate 2 09/26/25 04:00 BMI result Body Mass Index 23.2 Gen: weak, chronically ill HEENT: sclera anicteric, moist mucus membranes Neck: supple, JVD Lungs: diminished Heart: regular, rapid , no murmurs Abd: soft, non-tender, non-distended Ext: 2+ bilateral leg edema Skin: warm/well-perfused Neuro: alert and oriented x3, no focal findings Psych: appropriate affect Objective Data Active Medications Acetaminophen (Acetaminophen 325 Mg Tablet) 650 mg PO Q6H PRN PRN Reason: Pain, Mild 1-3,fever,headache Last Admin: 09/25/25 22:06 Dose: 650 mg Documented By: ANDREWS Calcium Carbonate (Calcium Carbonate 750 Mg Tab.Chew) 750 mg PO Q4H PRN PRN Reason: Heartburn Dorzolamide HCl (Dorzolamide Hcl 2 % Ophth Myranda 10 Ml Drpbtl) 1 drop EYE-BOTH BID [facility] Last Admin: 09/27/25 09:53 Dose: 1 drop Documented By: TEE Gabapentin (Gabapentin 100 Mg Capsule) 200 mg PO BEDTIME [facility] Last Admin: 09/26/25 20:27 Dose: 200 mg Documented By: RYDER Heparin Sodium (Porcine) (Heparin Sodium,Porcine 5,000 Unit/Ml Vial) 5,000 unit SUBCUT Q12H [facility] Last Admin: 09/27/25 06:18 Dose: Not Given Documented By: KYLIE Non-Admin Reason: Patient Refused Furosemide 200 mg/ Sodium (Chloride) 100 mls @ 1 mls/hr IVCONT .Q24H [facility] Last Admin: 09/27/25 07:46 Dose: 2 mg/hr, 1 mls/hr Documented By: TEE Vancomycin HCl 1,000 mg/ (Sodium Chloride) 270 mls @ 270 mls/hr IV Q24H [facility] Last Admin: 09/27/25 13:38 Dose: 270 mls/hr Documented By: TEE Caspofungin 50 mg/ Sodium (Chloride) 250 mls @ 250 mls/hr IV Q24H [facility] Piperacillin Sod/Tazobactam (Sod 3.375 gm/ Sodium Chloride) 50 mls @ 100 mls/hr IV Q6H [facility] Last Admin: 09/27/25 14:55 Dose: 100 mls/hr Documented By: TEE Magnesium Hydroxide (Milk Of Magnesia 30 Ml Oral.Susp) 30 ml PO DAILY PRN PRN Reason: Constipation Melatonin (Melatonin 3 Mg Tablet) 6 mg PO BEDTIME PRN PRN Reason: Insomnia Metoprolol Succinate (Metoprolol Succinate Er 50 Mg Tab.Er.24h) 50 mg PO DAILY [facility]; Protocol Last Admin: 09/27/25 09:53 Dose: 50 mg Documented By: TEE Multivitamins/Vitamin C (Multivitamin Tablet) 1 tab PO DAILY [facility] Last Admin: 09/27/25 09:53 Dose: 1 tab Documented By: TEE Patient Own Med ( Ambrisentan [ Letairis] 5 Mg Tablet) 5 mg PO BEDTIME [facility] Last Admin: 09/26/25 20:28 Dose: 5 mg Documented By: RYDER Patient Own Med ( Treprostinil Diolamine [Orenitram ] 1 Mg Tablet Extended Release) 3 mg PO TID [facility] Last Admin: 09/27/25 15:05 Dose: 3 mg Documented By: TEE Comments: 1mg tablets. 3 given Ondansetron HCl (Ondansetron Hcl 4 Mg/2 Ml Vial) 4 mg IVPUSH Q8H PRN PRN Reason: Nausea and Vomiting Last Admin: 09/26/25 20:36 Dose: 4 mg Documented By: RYDER Oxycodone HCl (Oxycodone Hcl Immed Release 5 Mg Tablet) 5 mg PO QID PRN PRN Reason: Pain, Moderate(Pain Scale 4-6) Last Admin: 09/27/25 13:23 Dose: 5 mg Documented By: TEE Pharmacy Consult (Consult Rx Vancomycin Dosing) 1 each MISCELLANE DAILY PRN PRN Reason: Consult order Quetiapine Fumarate (Quetiapine Fumarate 25 Mg Tablet) 25 mg PO BEDTIME [facility] Last Admin: 09/26/25 20:27 Dose: 25 mg Documented By: RYDER Sildenafil Citrate (Sildenafil Citrate 20 Mg Tablet) 20 mg PO TID [facility] Last Admin: 09/27/25 14:56 Dose: 20 mg Documented By: TEE Sodium Chloride (0.9 % Sodium Chloride Flush 3 Ml Syringe) 3 ml IVFLUSH QSHIFT [facility] Last Admin: 09/27/25 09:52 Dose: 3 ml Documented By: TEE Labs 09/27/25 07:04 09/27/25 07:04 Labs: Laboratory Results - last 24 hr 09/27/25 07:04 MCV 99.6 H MCH 30.8 MCHC 30.9 L RDW 18.1 H Plt Count 193 MPV 9.2 L Absolute Nucleated RBC 0.000 Nucleated RBC % (auto) 0.0 Anion Gap 13 Estim Creat Clear Calc 34.0 Estimated GFR 48 Random Glucose 96 Calcium 7.9 L Magnesium 1.7 Total Bilirubin 0.3 Direct Bilirubin 0.2 AST 24 ALT < 6 Alkaline Phosphatase 372 H Total Protein 4.9 L Albumin 2.6 L Microbiology Microbiology Results: Microbiology 09/25/25 16:43 Gram Stain - Final Sacrum Routine Culture - Preliminary Pseudomonas species 09/25/25 16:55 Blood Culture - Preliminary Blood - Venous No growth after 24 hours. 09/25/25 16:57 Blood Culture - Preliminary Blood - Venous No growth after 24 hours. Assessment and Plan (1) Sacral decubitus ulcer: Status: Acute (2) Decompensated heart failure: Status: Acute Plan d3, 80yo F with Sjogren syndrome, scleroderma, CREST, chronic diastolic CHF, pulmonary hypertension, CKD 3, myelodysplastic syndrome, intestinal AV malformations, and avascular necrosis of the hip s/p recent KAREN at [facility], recent admission to [facility] for aspiration PNA/ERIC/achalasia with apersitalsis/candidal esophagitis presented with worsening edema and failure to thrive acute-chronic HFpEF, R-sided and diastolic pHTN - continue IV furosemide gtt, Cardiology following, will add Jardiance, will increase metoprolol given sinus tachycardia - continue sildenafil + ambrisentan + treprostinil coccygeal ulcer with exposed bone - Gen Surg consulted : There is a thin layer of slough that will likely improve with current wound care regimen of medihoney and silver alginate. Alternatively can attempt wet to dry packing to help debride. Bone is palpable but not currently visible. Continue good daily wound care, offloading, nutritional support. Will continue to follow for possible surgical debridement - 09/27- vancomycin + Zosyn, CT to assess for osteomyelitis CKD3 - monitor SCr with diuresis hypoK - replete, recheck in AM candidal esophagitis - reviewed [facility] records; plan was micafungin to continue til 10/05; will substitute caspofungin while here. There was concern for IE as TTE suggested aortic vegetation vs. calcification and pt had splenic infarts on CT abd, but blood cultures and SERGIO were negative aperistalsis of esophagus - SENIOR ONLINE MARKETING MANAGER consultation MDS - monitor blood counts VTE ppx: UFH dispo: TBD In my clinical judgment, the patient requires continued inpatient hospitalization for the following reasons: IV ABX, IV diuresis, IV antifungal Total time managing care of this patient today: 60 minutes. Quality Stroke Does the patient have a stroke diagnosis?: No VTE Prior VTE?: No VTE Risk Level:: Medical - moderate - high VTE Device Contraindication: Treatment Not Indicated VTE Drug Contraindication: N/A - Med Ordered
--- NOTE | 2025-09-27 16:20 | MHC.CM.PN ---
Pt. not ready to DC, she is being treated with IV ABX and anti fungal medications. DCP: TBD CM to follow to assist with planning.
--- NOTE | 2025-09-27 18:15 | PC.NURSE ---
Patient vomited 20cc brown colored emesis. She states that is a typical color for her. + flatus and ostomy functioning draining 50cc. Has a history of esophageal candidiasas and impaired esophageal motility. Provider notified via [employer].
--- NOTE | 2025-09-27 18:42 | PC.NURSE ---
Patient asking to delay CT to tomorrow. She is in too much pain from surgical and wound care interventions. Provider notified and he is okay with deferring to tomorrow.
[2025-09-27] MEDS: Lidocaine 4 % Patch ADH..PATCH 1 PATCH TRANSDERMA ×2 (22:48→22:49)
[2025-09-28] VITALS (7 sets, daily range): BP systolic 100–130; BP diastolic 50–60; PULSE 96–104; RESP 16–20; TEMP 36.4–36.8; O2SAT 88–96
[2025-09-28 08:17] LABS: Anion Gap 11 (12-20); Blood Urea Nitrogen 45 mg/dL (9-16); Calcium 7.9 mg/dL (8.4-10.2); Carbon Dioxide 22 mmol/L (22-29); Chloride 113 mmol/L (96-108); Creatinine Clr Calc Pharmacy 32.0; Estimated Glomerular Filt Rate 45; Magnesium 1.7 mg/dL (1.6-2.6); Potassium 3.1 mmol/L (3.3-5.1); Sodium 143 mmol/L (135-145)
--- NOTE | 2025-09-28 08:33 | P.PNGS_ITS ---
Subjective Subjective Date of Service: 09/28/25 Interval history: Was taking off nasal cannula this morning per nursing. Reports being very uncomfortable and tired this morning. Not up for dressing change right now. Physical Exam 2 Vital Signs: Vital Signs: Last Vital Signs Temp 98.3 F 09/28/25 07:33 Pulse 104 H 09/28/25 07:33 Resp 16 09/28/25 07:33 BP 105/50 L 09/28/25 07:33 Pulse Ox 93 09/28/25 07:33 O2 Del Method Nasal Cannula 09/28/25 07:33 O2 Flow Rate 3 09/28/25 07:33 BMI result Body Mass Index 23.2 Const: General: comfortable, no acute distress and alert Resp: Effort & Inspection: normal respiratory effort and able to speak in complete sentences Skin: Other: decubitus ulcer - no significant change of wound itself- continues to have slough present but unable to debride this, ligament also exposed as well as pinpoint area of coccyx; no significant odor present, no significant necrosis, surrounding skin however with worsening unblanchable erythema Objective Data Active Medications Acetaminophen (Acetaminophen 325 Mg Tablet) 650 mg PO Q6H PRN PRN Reason: Pain, Mild 1-3,fever,headache Last Admin: 09/25/25 22:06 Dose: 650 mg Documented By: ANDREWS Calcium Carbonate (Calcium Carbonate 750 Mg Tab.Chew) 750 mg PO Q4H PRN PRN Reason: Heartburn Dorzolamide HCl (Dorzolamide Hcl 2 % Ophth Myranda 10 Ml Drpbtl) 1 drop EYE-BOTH BID [facility] Last Admin: 09/27/25 22:05 Dose: 1 drop Documented By: ANDREW Empagliflozin (Empagliflozin 10 Mg Tablet) 10 mg PO DAILY [facility] Gabapentin (Gabapentin 100 Mg Capsule) 200 mg PO BEDTIME [facility] Last Admin: 09/27/25 22:06 Dose: 200 mg Documented By: ANDREW Heparin Sodium (Porcine) (Heparin Sodium,Porcine 5,000 Unit/Ml Vial) 5,000 unit SUBCUT Q12H [facility] Last Admin: 09/28/25 06:09 Dose: Not Given Documented By: ELIUD Non-Admin Reason: Patient Refused Furosemide 200 mg/ Sodium (Chloride) 100 mls @ 1 mls/hr IVCONT .Q24H [facility] Last Admin: 09/27/25 21:00 Dose: Not Given Documented By: ANDREW Non-Admin Reason: IV Running Vancomycin HCl 1,000 mg/ (Sodium Chloride) 270 mls @ 270 mls/hr IV Q24H [facility] Last Infusion: 09/27/25 14:38 Dose: Infused Documented By: TEE Caspofungin 50 mg/ Sodium (Chloride) 250 mls @ 250 mls/hr IV Q24H [facility] Piperacillin Sod/Tazobactam (Sod 3.375 gm/ Sodium Chloride) 50 mls @ 100 mls/hr IV Q6H [facility] Last Infusion: 09/28/25 02:48 Dose: Infused Documented By: ANDREW Lidocaine (Lidocaine 4 % Patch Adh..Patch) 1 patch TRANSDERMA DAILY [facility]; Protocol Last Admin: 09/27/25 22:48 Dose: 1 patch Documented By: ANDREW Lidocaine (Lidocaine 4 % Patch Adh..Patch) 1 patch TRANSDERMA DAILY [facility]; Protocol Last Admin: 09/27/25 22:49 Dose: 1 patch Documented By: ANDREW Magnesium Hydroxide (Milk Of Magnesia 30 Ml Oral.Susp) 30 ml PO DAILY PRN PRN Reason: Constipation Melatonin (Melatonin 3 Mg Tablet) 6 mg PO BEDTIME PRN PRN Reason: Insomnia Metoprolol Succinate (Metoprolol Succinate Er 50 Mg Tab.Er.24h) 50 mg PO BID [facility]; Protocol Last Admin: 09/27/25 22:06 Dose: 50 mg Documented By: ANDREW Multivitamins/Vitamin C (Multivitamin Tablet) 1 tab PO DAILY [facility] Last Admin: 09/27/25 09:53 Dose: 1 tab Documented By: TEE Patient Own Med ( Ambrisentan [ Letairis] 5 Mg Tablet) 5 mg PO BEDTIME [facility] Last Admin: 09/27/25 22:05 Dose: 5 mg Documented By: ANDREW Patient Own Med ( Treprostinil Diolamine [Orenitram ] 1 Mg Tablet Extended Release) 3 mg PO TID [facility] Last Admin: 09/27/25 22:05 Dose: 3 mg Documented By: ANDREW Ondansetron HCl (Ondansetron Hcl 4 Mg/2 Ml Vial) 4 mg IVPUSH Q8H PRN PRN Reason: Nausea and Vomiting Last Admin: 09/27/25 22:43 Dose: 4 mg Documented By: ANDREW Oxycodone HCl (Oxycodone Hcl Immed Release 5 Mg Tablet) 5 mg PO QID PRN PRN Reason: Pain, Moderate(Pain Scale 4-6) Last Admin: 09/27/25 22:02 Dose: 5 mg Documented By: ANDREW Pharmacy Consult (Consult Rx Vancomycin Dosing) 1 each MISCELLANE DAILY PRN PRN Reason: Consult order Quetiapine Fumarate (Quetiapine Fumarate 25 Mg Tablet) 25 mg PO BEDTIME [facility] Last Admin: 09/27/25 22:06 Dose: 25 mg Documented By: ANDREW Sildenafil Citrate (Sildenafil Citrate 20 Mg Tablet) 20 mg PO TID [facility] Last Admin: 09/27/25 22:06 Dose: 20 mg Documented By: ANDREW Sodium Chloride (0.9 % Sodium Chloride Flush 3 Ml Syringe) 3 ml IVFLUSH QSHIFT [facility] Last Admin: 09/28/25 00:22 Dose: Not Given Documented By: ANDREW Non-Admin Reason: IV Running Labs 09/27/25 07:04 09/28/25 06:52 Labs: Laboratory Results - last 24 hr 09/28/25 09/28/25 06:51 06:52 Anion Gap 11 L Estim Creat Clear Calc 32.0 Estimated GFR 45 Random Glucose 132 H Calcium 7.9 L Magnesium 1.7 NT-Pro-B Natriuret Pep 68053.3 H Microbiology Microbiology Results: Microbiology 09/25/25 16:43 Gram Stain - Final Sacrum Routine Culture - Preliminary Pseudomonas aeruginosa Enterococcus/Streptococcus sp 09/25/25 16:55 Blood Culture - Preliminary Blood - Venous No growth after 48 hours. 09/25/25 16:57 Blood Culture - Preliminary Blood - Venous No growth after 48 hours. Procedures Date of Service Date of Service: 09/28/25 Progress Note: A&P Assessment and plan (1) Sacral decubitus ulcer: Status: Acute Plan Will return for dressing change later today to reassess decubitus ulcer. Will attempt to coordinate with wound care and premedicate prior to limit patient discomfort. Continue supportive measures of frequent offloading and repositioning and nutritional support. Wound assessment as above- wet to dry saline soaked fluff placed to wound base followed by allevyn foam to try to attempt to remove slough present. She does have worsening pressure injury surrounding the wound today- nursing reports attempting to reposition patient on the R side however patient refuses after 10 minutes. PT consult requested to assist with mobility. Time Spent With Patient Time: Total time managing care of this patient today ____ minutes. Quality Stroke Does the patient have a stroke diagnosis?: No VTE Prior VTE?: No VTE Risk Level:: Medical - moderate - high VTE Device Contraindication: Treatment Not Indicated VTE Drug Contraindication: N/A - Med Ordered
[2025-09-28] MEDS: Metoprolol Succinate ER 50 MG TAB.ER.24H PO (09:00)
[2025-09-28] MEDS: 0.9 % Sodium Chloride Flush 3 ML SYRINGE IVFLUSH ×2 (09:01→21:24)
[2025-09-28] MEDS: Dorzolamide HCl 2 % Ophth Sol 10 ML DRPBTL 1 DROP EYE-BOTH ×2 (09:01→21:22)
[2025-09-28] MEDS: Furosemide 200 MG in 0.9 % Sodium Chloride 80 ML IVCONT (10:28)
--- NOTE | 2025-09-28 11:04 | P.PNCA_ITS ---
Subjective Subjective Date of Service: 09/28/25 Principal diagnosis: CHF Interval history: Patient remains pretty sedentary and continues to have pain in the coccyx site, been treated by Wound Care. Continues to be short of breath with high oxygen requirement. Overall does not appear significantly fluid overloaded but remained short of breath. She also complains of chest pain with mobility appears to be more musculoskeletal. Echocardiogram shows moderately increased LV wall thickness with preserved LV ejection fraction with diastolic dysfunction with elevated filling pressures. RV size and function appear to be normal with no significant pulmonary hypertension noted Review of Systems Constitutional: Reports malaise and Reports weakness Cardiovascular: Reports chest pain at rest, Denies lightheadedness, Denies Loss of Consciousness, Denies palpitations and Reports dyspnea Respiratory: Reports dyspnea Gastrointestinal: Reports no additional gastrointestinal complaints Genitourinary: Reports no additional female genitourinary complaints Reports system reviewed and no additional complaints, except as documented and Reports weakness Endocrine: Denies palpitations Physical Exam Vital Signs: Last Vital Signs Temp 98.3 F 09/28/25 07:33 Pulse 104 H 09/28/25 07:33 Resp 16 09/28/25 07:33 BP 105/50 L 09/28/25 10:28 Pulse Ox 93 09/28/25 07:33 O2 Del Method Nasal Cannula 09/28/25 07:33 O2 Flow Rate 3 09/28/25 07:33 BMI result Body Mass Index 23.2 Const General: no acute distress, alert and awake Nutritional Appearance: thin and other (Frail-appearing) Orientation/consciousness: patient oriented x3 Neck Neck: Yes trachea midline, Yes supple and Yes JVD Resp Effort & Inspection: decreased respiratory effort Auscultation: no rales, no rhonchi and diminished lung sounds Cardio Jugular venous distension: JVD Rate: regular rate and tachycardic Rhythm: regular rhythm Heart sounds: S1 normal heart sound present, S2 normal heart sound present, no click, no gallops and Murmur heart sound present systolic Skin General skin exam: no rashes or lesions noted Neuro General: patient oriented x3 and no focal motor deficits Extrem General: No clubbing, No cyanosis and Yes edema Objective Labs and Meds 09/27/25 07:04 09/28/25 06:52 Lab results: Laboratory Results - last 24 hr 09/28/25 09/28/25 06:51 06:52 Sodium 143 Potassium 3.1 L Chloride 113 H Carbon Dioxide 22 Anion Gap 11 L BUN 45 H Creatinine 1.16 Estim Creat Clear Calc 32.0 Estimated GFR 45 Random Glucose 132 H Calcium 7.9 L Magnesium 1.7 NT-Pro-B Natriuret Pep 06558.3 H Progress Note: A&P Assessment and plan (1) Decompensated heart failure: Status: Acute Assessment and Plan: Decompensated congestive heart failure with tepid diuresis with persistent hypoxemia. Clinically difficult to assess volume overload but does not appear to have generally increase volume overload. Could represent left-sided heart failure only. Overall also could represent significant pulmonary issues with atelectasis and also reduced pulmonary capacity given her significant deconditioning. I would consider increasing her diuretics to 5 mg an hour of Lasix drip with strict intake and output chart and see if this improves overall clinical situation. She does not have significant pulmonary hypertension on echocardiogram done yesterday could be result of her continue pulmonary hypertension therapy although discussed with her regular hr shared services consultant about a diagnose and they were not sure about the diagnose at this point time. For now continue her chronic pulmonary hypertension therapy. Need to re-evaluate her mitral valve. Continue supportive care. Overall prognosis is guarded. Will follow with you Time Spent With Patient Time: Total time managing care of this patient today ____ minutes. Progress Note: Quality Stroke Does the patient have a stroke diagnosis?: No Procedures Date of Service Date of Service: 09/28/25
--- NOTE | 2025-09-28 11:44 | HE.PHANOTE ---
RE: VANCO Trough returned @ 24.7. Holding and decreasing vanco dose to 500 mg Q24h @1700 to allow patient to clear. Predicted AUC 406 and trough 13.1. Will check trough 12/ @1500 to ensure safety.
--- NOTE | 2025-09-28 12:07 | HO.WOUND ---
Wound Consult: Follow up 80 yr old female admitted to [facility] on 09/25/25 - See progress notes and H&P for detailed history. Attempted to see with General Surgery at request unable to coordinate timing - General surgery saw patient and requested Wet to dry dressing and omit Medihoney for now. Will defer topical recommendations to General Surgery at this time. While at bedside after dressing change was completed discussed turns and repositions with patient. Direct care nurse present and we had nayely conversation about the patients refusal of repositions. Patient was educated the concern for worsening pressure injury and new development of pressure injuries. Patient was agreeable to repositions and up to the chair with waffle cushions. Staff was advised to continue to educate and offer and suggest repositions Q 2 hours. Waffle cushion applied ot recliner dary rin room should patient get up wth PT later today. Nutrition following. SIPP in Place, CHLOE mattress in use. Coccyx 09/27/25 Coccyx 09/28/25 Minimal changes noted - Medihoney remains appropriate for topical interventions for enhanced autolytic debridement along with antimicrobial properties however at this time general surgery prefers wet to dry dressing and will defer topical recommendations to them. Order updated for direct care staff. Coccyx -Off Load Pressure with Q2 hr turns and use of pillows - Cleanse with NS moist gauze, pat dry. ?Apply thin layer of Triad or barrier cream to wound bed. Apply saline moist gauze dressing to wound bed cover with foam dressing or ABD pad. Change Daily. Heels not assessed today. Details from Prior Assessment: Etiology: coccyx unstageable pressure injury Present on Admission Measurements: 4cm x 2cm x 1cm undermining 11-1, 0.5cm Wound Bed: moist yellow necrotic tissue- bone palpable in base Drainage / Odor: small leonard no odor Edges: ? open- advancing edges with area of deep purple/black Anne wound: ? No Induration, Fluctuance or Warmth noted Pain: yes Goals of Treatment: ? debridement - medihoney place at visit- likely switch to wet to dry once seen by surgery (possible debridement) Left heel - Deep tissue pressure injury present on admission - noted on admission assessment as redness - appears as deflating blood blister - foam dressing applied Deep tissue pressure injury: Intact or non intact skin with localized are of non-blanchable deep red, maroon, purple discoloration OR epidermal separation revealing a dark wound bed OR blood filled blister. Pain and temperature changes often precede color changes, can show 48-72 hours later. May resolve without causing ulceration or full thickness skin loss, or it may evolve to reveal actual extent of tissue injury right heel intact pink and blanching- protective foam applied Recommendations: 1. Turn and Reposition every 2 hours and as needed for patient comfort. Use pillows or wedges to support off loading positions. 2. Off Load all bony prominences with use of pillows and heel boots if needed. Apply Preventative foams where needed. 3. Monitor for incontinence and moisture control, use barrier creams when needed for prevention and treatment. 4. Provide adequate and supplemental nutrition. 5. Order or Continue low air loss mattress. 6. When applicable maintain blood glucose levels per Providers order. Coccyx: cleanse with saline- apply triad anne wound- apply NS wet to dry, cover with foam, change daily and PRN. Bilateral heels: Elevate heels off of bed surface with pillows. Float heels off of pillows. Apply skin prep allow to dry. Apply heel foam dressings, peel back and assess Q shift and change every 5-7 days and PRN. Re-consult wound care Nurse for wound deterioration or wound changes.
[2025-09-28] MEDS: iohexoL 350 MG/ML 100 ML INFUS..BTL 85 ML IV (12:55)
--- NOTE | 2025-09-28 14:41 | P.PNIM_ITS ---
Subjective Subjective Date of Service: 09/28/25 Interval History: feels weak, short of breath c/o coccyx pain Review of Systems Review of Systems: Yes all other systems are reviewed and are negative Physical Exam 2 Vital Signs: Vital Signs: Last Vital Signs Temp 98.0 F 09/28/25 12:00 Pulse 100 09/28/25 12:00 Resp 20 09/28/25 12:00 BP 104/55 L 09/28/25 12:00 Pulse Ox 88 L 09/28/25 12:00 O2 Del Method Nasal Cannula 09/28/25 12:00 O2 Flow Rate 4 09/28/25 12:00 BMI result Body Mass Index 23.2 Gen: weak, chronically ill HEENT: sclera anicteric, moist mucus membranes Neck: supple, JVD Lungs: diminished Heart: regular, no murmurs Abd: soft, non-tender, non-distended, LLQ ostomy Ext: 1+ bilateral leg edema Skin: warm/well-perfused Neuro: alert and oriented x3, no focal findings Psych: appropriate affect Objective Data Active Medications Acetaminophen (Acetaminophen 325 Mg Tablet) 650 mg PO Q6H PRN PRN Reason: Pain, Mild 1-3,fever,headache Last Admin: 09/25/25 22:06 Dose: 650 mg Documented By: ANDREWS Calcium Carbonate (Calcium Carbonate 750 Mg Tab.Chew) 750 mg PO Q4H PRN PRN Reason: Heartburn Dorzolamide HCl (Dorzolamide Hcl 2 % Ophth Myranda 10 Ml Drpbtl) 1 drop EYE-BOTH BID [facility] Last Admin: 09/28/25 09:01 Dose: 1 drop Documented By: MARY Empagliflozin (Empagliflozin 10 Mg Tablet) 10 mg PO DAILY [facility] Last Admin: 09/28/25 09:00 Dose: 10 mg Documented By: MARY Gabapentin (Gabapentin 100 Mg Capsule) 200 mg PO BEDTIME [facility] Last Admin: 09/27/25 22:06 Dose: 200 mg Documented By: ANDREW Heparin Sodium (Porcine) (Heparin Sodium,Porcine 5,000 Unit/Ml Vial) 5,000 unit SUBCUT Q12H [facility] Last Admin: 09/28/25 06:09 Dose: Not Given Documented By: ELIUD Non-Admin Reason: Patient Refused Caspofungin 50 mg/ Sodium (Chloride) 250 mls @ 250 mls/hr IV Q24H [facility] Last Infusion: 09/28/25 13:15 Dose: Infused Documented By: MARY Piperacillin Sod/Tazobactam (Sod 3.375 gm/ Sodium Chloride) 50 mls @ 100 mls/hr IV Q6H [facility] Last Admin: 09/28/25 13:48 Dose: 100 mls/hr Documented By: MARY Furosemide 200 mg/ Sodium (Chloride) 100 mls @ 2.5 mls/hr IVCONT .Q24H [facility] Last Infusion: 09/28/25 11:22 Dose: 5 mg/hr, 2.5 mls/hr Documented By: MARY Vancomycin HCl 500 mg/ Sodium (Chloride) 110 mls @ 110 mls/hr IV Q24H [facility] Lidocaine (Lidocaine 4 % Patch Adh..Patch) 1 patch TRANSDERMA DAILY [facility]; Protocol Last Admin: 09/28/25 09:29 Dose: Not Given Documented By: MARY Non-Admin Reason: Patient Refused Lidocaine (Lidocaine 4 % Patch Adh..Patch) 1 patch TRANSDERMA DAILY [facility]; Protocol Last Admin: 09/28/25 09:29 Dose: Not Given Documented By: MARY Non-Admin Reason: Patient Refused Magnesium Hydroxide (Milk Of Magnesia 30 Ml Oral.Susp) 30 ml PO DAILY PRN PRN Reason: Constipation Melatonin (Melatonin 3 Mg Tablet) 6 mg PO BEDTIME PRN PRN Reason: Insomnia Metoprolol Succinate (Metoprolol Succinate Er 50 Mg Tab.Er.24h) 50 mg PO BID [facility]; Protocol Last Admin: 09/28/25 09:00 Dose: 50 mg Documented By: MARY Multivitamins/Vitamin C (Multivitamin Tablet) 1 tab PO DAILY [facility] Last Admin: 09/28/25 09:00 Dose: 1 tab Documented By: MARY Patient Own Med ( Ambrisentan [ Letairis] 5 Mg Tablet) 5 mg PO BEDTIME [facility] Last Admin: 09/27/25 22:05 Dose: 5 mg Documented By: ANDREW Patient Own Med ( Treprostinil Diolamine [Orenitram ] 1 Mg Tablet Extended Release) 3 mg PO TID [facility] Last Admin: 09/28/25 09:00 Dose: 3 mg Documented By: MARY Ondansetron HCl (Ondansetron Hcl 4 Mg/2 Ml Vial) 4 mg IVPUSH Q8H PRN PRN Reason: Nausea and Vomiting Last Admin: 09/27/25 22:43 Dose: 4 mg Documented By: ANDREW Oxycodone HCl (Oxycodone Hcl Immed Release 5 Mg Tablet) 5 mg PO QID PRN PRN Reason: Pain, Moderate(Pain Scale 4-6) Last Admin: 09/27/25 22:02 Dose: 5 mg Documented By: ANDREW Pharmacy Consult (Consult Rx Vancomycin Dosing) 1 each MISCELLANE DAILY PRN PRN Reason: Consult order Quetiapine Fumarate (Quetiapine Fumarate 25 Mg Tablet) 25 mg PO BEDTIME [facility] Last Admin: 09/27/25 22:06 Dose: 25 mg Documented By: ANDREW Sildenafil Citrate (Sildenafil Citrate 20 Mg Tablet) 20 mg PO TID [facility] Last Admin: 09/28/25 09:00 Dose: 20 mg Documented By: MRAY Sodium Chloride (0.9 % Sodium Chloride Flush 3 Ml Syringe) 3 ml IVFLUSH QSHIFT [facility] Last Admin: 09/28/25 09:01 Dose: 3 ml Documented By: MARY Labs 09/27/25 07:04 09/28/25 06:52 Labs: Laboratory Results - last 24 hr 09/28/25 09/28/25 09/28/25 06:51 06:52 10:51 Anion Gap 11 L Estim Creat Clear Calc 32.0 Estimated GFR 45 Random Glucose 132 H Calcium 7.9 L Magnesium 1.7 NT-Pro-B Natriuret Pep 44772.3 H Random Vancomycin 24.7 H Microbiology Microbiology Results: Microbiology 09/25/25 16:43 Gram Stain - Final Sacrum Routine Culture - Preliminary Pseudomonas aeruginosa Enterococcus/Streptococcus sp 09/25/25 16:55 Blood Culture - Preliminary Blood - Venous No growth after 48 hours. 09/25/25 16:57 Blood Culture - Preliminary Blood - Venous No growth after 48 hours. Assessment and Plan (1) Sacral decubitus ulcer: Status: Acute (2) Decompensated heart failure: Status: Acute Plan d4, 80yo F with Sjogren syndrome, scleroderma, CREST, chronic diastolic CHF, pulmonary hypertension, CKD 3, myelodysplastic syndrome, intestinal AV malformations, and avascular necrosis of the hip s/p recent KAREN at [facility], recent admission to [facility] for aspiration PNA/ERIC/achalasia with apersitalsis/candidal esophagitis presented with worsening edema and failure to thrive acute-chronic HFpEF, R-sided and diastolic pHTN - continue IV furosemide gtt [increase from 2 to 5 mg/d], Cardiology following, added Jardiance, increased metoprolol given sinus tachycardia - continue sildenafil + ambrisentan + treprostinil coccygeal ulcer with exposed bone - Gen Surg consulted : There is a thin layer of slough that will likely improve with current wound care regimen of medihoney and silver alginate. Alternatively can attempt wet to dry packing to help debride. Bone is palpable but not currently visible. Continue good daily wound care, offloading, nutritional support. Will continue to follow for possible surgical debridement - 09/27- vancomycin + Zosyn, CT pelvis: Exposed sacral bone in the right inferior sacrum highly suggests osteomyelitis although no gross radiographic/CT changes are seen. There is a large sacral decubitus ulcer. Consult ID. CKD3 - monitor SCr with diuresis hypoK - replete, recheck in AM candidal esophagitis - reviewed [facility] records; plan was micafungin to continue til 10/05; will substitute caspofungin while here. There was concern for IE as TTE suggested aortic vegetation vs. calcification and pt had splenic infarts on CT abd, but blood cultures and SERGIO were negative aperistalsis of esophagus - CARD PAINTER consulted: NDD3 solids, thin liquids MDS - monitor blood counts VTE ppx: UFH dispo: TBD In my clinical judgment, the patient requires continued inpatient hospitalization for the following reasons: IV ABX, IV diuresis, IV antifungal Total time managing care of this patient today: 50 minutes. Quality Stroke Does the patient have a stroke diagnosis?: No VTE Prior VTE?: No VTE Risk Level:: Medical - moderate - high VTE Device Contraindication: Treatment Not Indicated VTE Drug Contraindication: N/A - Med Ordered
[2025-09-28] MEDS: Potassium Chloride ER 20 MEQ TAB.ER.PRT PO (15:19)
--- NOTE | 2025-09-28 15:23 | W.PM.IDCN ---
History of Present Illness Data of Consult Service Date: 09/28/25 Requesting physician: Manisha Perez Primary Care Provider: Jermaine Lazaro MD HPI Reason for consult: candidal esophagitis,sacral OM,multiple hospital stays She presents with general body weakness. She has had stays at [facility] and then [facility] I am reviewing. 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 Review of Systems Review of Systems: Yes all other systems are reviewed and are negative [facility] Past Medical History Medical History (Updated 09/28/25 @ 15:26 by Candy Espinosa MD) Fungal esophagitis GERD (gastroesophageal reflux disease) Avascular necrosis Myelodysplastic syndrome Telangiectasia Pulmonary hypertension OCD (obsessive compulsive disorder) Humeral fracture Chronic anemia CREST (calcinosis, Raynaud's phenomenon, esophageal dysfunction, sclerodactyly, telangiectasia) Sjogren syndrome Family History Family History Mother Diabetes mellitus Seizure disorder Father Past heart attack Son Diabetes mellitus type 1 Family history: reviewed and not pertinent Surgical History Surgical History S/P ORIF (open reduction internal fixation) fracture H/O shoulder replacement Social History Social History Household Members: Spouse Housing Other:: [facility] Housing Do you presently have visiting nurse or other home services: Yes (13/05 aids) Patient Tobacco Use Status: Never used Tobacco Advance Directives Date on File: 10/21/14 service: No Meds Allergies Allergy/AdvReac Type Severity Reaction Status Date / Time bee pollen (bees) Allergy Swelling Verified 09/25/25 14:17 niacin Allergy Rash Verified 09/25/25 14:16 epinephrine AdvReac Shakiness Verified 09/25/25 14:15 Active Medications: Current Medications Acetaminophen (Acetaminophen 325 Mg Tablet) 650 mg PO Q6H PRN PRN Reason: Pain, Mild 1-3,fever,headache Last Admin: 09/25/25 22:06 Dose: 650 mg Calcium Carbonate (Calcium Carbonate 750 Mg Tab.Chew) 750 mg PO Q4H PRN PRN Reason: Heartburn Dorzolamide HCl (Dorzolamide Hcl 2 % Ophth Myranda 10 Ml Drpbtl) 1 drop EYE-BOTH BID [facility] Last Admin: 09/28/25 09:01 Dose: 1 drop Empagliflozin (Empagliflozin 10 Mg Tablet) 10 mg PO DAILY [facility] Last Admin: 09/28/25 09:00 Dose: 10 mg Gabapentin (Gabapentin 100 Mg Capsule) 200 mg PO BEDTIME [facility] Last Admin: 09/27/25 22:06 Dose: 200 mg Heparin Sodium (Porcine) (Heparin Sodium,Porcine 5,000 Unit/Ml Vial) 5,000 unit SUBCUT Q12H [facility] Last Admin: 09/28/25 06:09 Dose: Not Given Caspofungin 50 mg/ Sodium (Chloride) 250 mls @ 250 mls/hr IV Q24H [facility] Last Infusion: 09/28/25 13:15 Dose: Infused Piperacillin Sod/Tazobactam (Sod 3.375 gm/ Sodium Chloride) 50 mls @ 100 mls/hr IV Q6H [facility] Last Infusion: 09/28/25 14:20 Dose: Infused Furosemide 200 mg/ Sodium (Chloride) 100 mls @ 2.5 mls/hr IVCONT .Q24H [facility] Last Infusion: 09/28/25 11:22 Dose: 5 mg/hr, 2.5 mls/hr Vancomycin HCl 500 mg/ Sodium (Chloride) 110 mls @ 110 mls/hr IV Q24H [facility] Lidocaine (Lidocaine 4 % Patch Adh..Patch) 1 patch TRANSDERMA DAILY [facility]; Protocol Last Admin: 09/28/25 09:29 Dose: Not Given Lidocaine (Lidocaine 4 % Patch Adh..Patch) 1 patch TRANSDERMA DAILY [facility]; Protocol Last Admin: 09/28/25 09:29 Dose: Not Given Lidocaine (Lidocaine 4 % Patch Adh..Patch) 2 patch TRANSDERMA DAILY [facility]; Protocol Magnesium Hydroxide (Milk Of Magnesia 30 Ml Oral.Susp) 30 ml PO DAILY PRN PRN Reason: Constipation Melatonin (Melatonin 3 Mg Tablet) 6 mg PO BEDTIME PRN PRN Reason: Insomnia Metoprolol Succinate (Metoprolol Succinate Er 50 Mg Tab.Er.24h) 50 mg PO BID [facility]; Protocol Last Admin: 09/28/25 09:00 Dose: 50 mg Multivitamins/Vitamin C (Multivitamin Tablet) 1 tab PO DAILY [facility] Last Admin: 09/28/25 09:00 Dose: 1 tab Patient Own Med ( Ambrisentan [ Letairis] 5 Mg Tablet) 5 mg PO BEDTIME [facility] Last Admin: 09/27/25 22:05 Dose: 5 mg Patient Own Med ( Treprostinil Diolamine [Orenitram ] 1 Mg Tablet Extended Release) 3 mg PO TID [facility] Last Admin: 09/28/25 15:20 Dose: 3 mg Ondansetron HCl (Ondansetron Hcl 4 Mg/2 Ml Vial) 4 mg IVPUSH Q8H PRN PRN Reason: Nausea and Vomiting Last Admin: 09/27/25 22:43 Dose: 4 mg Oxycodone HCl (Oxycodone Hcl Immed Release 5 Mg Tablet) 5 mg PO QID PRN PRN Reason: Pain, Moderate(Pain Scale 4-6) Last Admin: 09/27/25 22:02 Dose: 5 mg Pharmacy Consult (Consult Rx Vancomycin Dosing) 1 each MISCELLANE DAILY PRN PRN Reason: Consult order Quetiapine Fumarate (Quetiapine Fumarate 25 Mg Tablet) 25 mg PO BEDTIME [facility] Last Admin: 09/27/25 22:06 Dose: 25 mg Sildenafil Citrate (Sildenafil Citrate 20 Mg Tablet) 20 mg PO TID [facility] Last Admin: 09/28/25 15:20 Dose: 20 mg Sodium Chloride (0.9 % Sodium Chloride Flush 3 Ml Syringe) 3 ml IVFLUSH [facility] Last Admin: 09/28/25 15:22 Dose: Not Given Home Medications ?Medication ?Instructions ?Recorded ?Confirmed ?Last Taken ?Type ambrisentan 5 mg tablet (Letairis) 5 mg PO BEDTIME 09/25/25 09/26/25 08/20/25 History brinzolamide 1 % eye 1 drp ophthalmic (eye) BID 09/25/25 09/26/25 09/25/25 History drops,suspension gabapentin 100 mg capsule 200 mg PO BEDTIME 09/25/25 09/26/25 08/20/25 History oxycodone 5 mg tablet 5 mg PO QID PRN Pain 09/25/25 09/26/25 Unknown History perfluorohexyloctane (PF) 100 % 1 drp ophthalmic (eye) BID 09/25/25 09/26/25 09/25/25 History eye drops (Miebo (PF)) quetiapine 25 mg tablet 25 mg PO BEDTIME 09/25/25 09/26/25 08/20/25 History sildenafil (pulm.hypertension) 20 20 mg PO TID 09/25/25 09/26/25 08/20/25 History mg tablet treprostinil diolamine 1 mg 3 mg PO TID 09/25/25 09/26/25 08/20/25 History tablet,extended release (Orenitram) metoprolol succinate 50 mg 50 mg PO DAILY 09/26/25 09/26/25 Unknown History tablet,extended release 24 hr vitamin B complex 1 tab PO DAILY 09/26/25 09/26/25 08/20/25 History Physical Exam Vital Signs: Vital Signs: Last Vital Signs Temp 98.0 F 09/28/25 12:00 Pulse 100 09/28/25 12:00 Resp 20 09/28/25 12:00 BP 104/55 L 09/28/25 12:00 Pulse Ox 88 L 09/28/25 12:00 O2 Del Method Nasal Cannula 09/28/25 12:00 O2 Flow Rate 4 09/28/25 12:00 BMI result Body Mass Index 23.2 Extrem: Other: weakness,shininess legs Results Labs 09/27/25 07:04 09/28/25 06:52 Labs: BMP 09/28/25 06:52 Sodium 143 Potassium 3.1 L Chloride 113 H Carbon Dioxide 22 BUN 45 H Creatinine 1.16 Calcium 7.9 L Microbiology Microbiology Results: Microbiology 09/25/25 16:43 Sacrum Gram Stain - Final 09/25/25 16:43 Sacrum Routine Culture - Preliminary Pseudomonas aeruginosa Enterococcus/Streptococcus sp 09/25/25 16:55 Blood - Venous Blood Culture - Preliminary No growth after 48 hours. 09/25/25 16:57 Blood - Venous Blood Culture - Preliminary No growth after 48 hours. Assessment and Plan (1) Sacral decubitus ulcer: Status: Acute limited cutaneous systemic sclerosis (2) Fungal esophagitis: Status: Acute Plan Would only give terminal block assembler six week IV antibiotics for sacral OM if closure anticipated,in conjunction with Surgery Would continue Caspofungin for candidal esophagitis until 10/05.
[2025-09-28] MEDS: Lidocaine 4 % Patch ADH..PATCH 2 PATCH TRANSDERMA (15:25)
--- NOTE | 2025-09-28 15:57 | MHC.SL.SWA ---
Speech Pathologist Impression: Risk of Aspiration, Mild Oropharyngeal Dysphagia, Suspected Esophageal Dysphagia Dysphasia Diet Status: DOWNGRADE TO NDD3 Liquid Consistency and Strategies for Safe Swallow: Liquid Intake Recommendation: Thin Solid Food Consistency: Dietary Recommendations: Chopped/Advanced (NDD3) Additional Modifications to Solid Foods: Patient presents with mild oropharyngeal dysphagia, note behavior of softening foods with water and patient's reports of previously needing finely cut up food during her last hospitalization for aspiration PNA. Patient does have significant esophageal history, including achalasia, aperistalsis, and candidal esophagitis. Recommend DOWNGRADE to CHOPPED/ADVANCED (NDD3) solids and continue on THIN liquids, pills WHOLE w/ LIQUID, w/ strategies to address suspected esophageal dysphagia: upright 90 degree positioning during PO intake and for at least 60 min afterwards, moisten food w/ sauces/gravies, chew food well, alternate bites w/ liquid wash for clearance. Diet order was adjusted per ALARM ADJUSTER. Advised MD, RN, and RD of recommendations via secure text. ALARM ADJUSTER will continue to follow. Oral Medication Intake: Whole with Liquid Please contact the pharmacy regarding appropriate crushable or liquid drug formulations that are available whenever modified delivery is recommended. Supervision While Eating and Drinking for Safe Swallow: Direct Supervision (1:1) Recommendation for Speech: Inpatient Speech Therapy Frequency/Duration: M-F while inpatient Date Range for Service Req: Timeline to reassess: Shank Rander Clinican/Clinical Fellow: No Supervisory Statement: I have reviewed and agree with the student/clinical fellow's documentation: N/A Speech Language Pathologist: Karla Pool M.A., CCC-ALARM ADJUSTER
[2025-09-28] MEDS: oxyCODONE HCl Immed Release 5 MG TABLET PO (21:30)
[2025-09-29] VITALS (16 sets, daily range): BP systolic 84–140; BP diastolic 30–66; PULSE 78–100; RESP 14–20; TEMP 36–36.9; O2SAT 90–100
[2025-09-29 07:14] LABS: Hematocrit 23.3 % (37.0-47.0); Hemoglobin 7.2 g/dl (12.0-16.0); Mean Corpuscular HGB Conc 30.9 g/dl (31.0-35.0); Mean Corpuscular Hemoglobin 31.0 pg (27.0-33.0); Mean Corpuscular Volume 100.4 fL (80.0-98.0); NRBC Abs Auto 0.000 X10*3/uL (0.0-0.012); NRBC Pct Auto 0.0 /100WBC (0.0-0.2); Red Blood Count 2.32 X10*6/uL (4.20-5.50); White Blood Count 4.7 X10*3/uL (4.8-10.8)
[2025-09-29 07:17] LABS: Platelet Count 134 X10*3/uL (160-400)
[2025-09-29 07:35] LABS: Anion Gap 12 (12-20); Blood Urea Nitrogen 40 mg/dL (9-16); Calcium 7.8 mg/dL (8.4-10.2); Carbon Dioxide 20 mmol/L (22-29); Chloride 114 mmol/L (96-108); Creatinine Clr Calc Pharmacy 29.0; Estimated Glomerular Filt Rate 40; Magnesium 1.7 mg/dL (1.6-2.6); Potassium 2.8 mmol/L (3.3-5.1); Sodium 143 mmol/L (135-145)
[2025-09-29 08:01] LABS: Reticulocytes Absolute 0.083 X10*6/uL (0.026-0.095)
[2025-09-29 08:18] LABS: Iron 25 mcg/dL (30-160); Percent Iron Saturation 17 % (15-50); Total Iron Binding Capacity 148 mcg/dL (228-428); Unsaturated Iron Binding 123 ug/dL
[2025-09-29 08:33] LABS: Ferritin 256 ng/mL (10-250)
[2025-09-29] MEDS: Metoprolol Succinate ER 50 MG TAB.ER.24H PO (09:35)
[2025-09-29] MEDS: oxyCODONE HCl Immed Release 5 MG TABLET PO (09:35)
[2025-09-29] MEDS: 0.9 % Sodium Chloride Flush 3 ML SYRINGE IVFLUSH ×3 (09:36→19:56)
[2025-09-29] MEDS: Potassium Chloride ER 20 MEQ TAB.ER.PRT 40 MEQ PO (09:36)
[2025-09-29] MEDS: Dorzolamide HCl 2 % Ophth Sol 10 ML DRPBTL 1 DROP EYE-BOTH ×2 (09:36→20:13)
[2025-09-29] MEDS: Lidocaine 4 % Patch ADH..PATCH 2 PATCH TRANSDERMA (09:40)
[2025-09-29] MEDS: Potassium Chloride/H20 10 MEQ/100 ML PIGGYBACK 100 MEQ IV ×4 (10:22→16:49)
--- NOTE | 2025-09-29 11:20 | P.PNGS_ITS ---
Subjective Subjective Date of Service: 09/29/25 Interval history: C/o pain this morning. Seen by PT yesterday and reports getting OOB to chair yesterday for around 2 hours. Physical Exam 2 Vital Signs: Vital Signs: Last Vital Signs Temp 97.5 F 09/29/25 08:00 Pulse 85 09/29/25 08:00 Resp 16 09/29/25 08:00 BP 103/50 L 09/29/25 08:00 Pulse Ox 98 09/29/25 08:00 O2 Del Method Nasal Cannula 09/29/25 08:00 O2 Flow Rate 3 09/29/25 08:00 BMI result Body Mass Index 23.2 Const: General: comfortable, no acute distress and alert Resp: Effort & Inspection: normal respiratory effort Skin: Other: decubitus ulcer with less slough, still some persistent on left superior portion, some granulation at wound base, surrounding erythema also improved, no necrosis Objective Data Active Medications Acetaminophen (Acetaminophen 325 Mg Tablet) 650 mg PO Q6H PRN PRN Reason: Pain, Mild 1-3,fever,headache Last Admin: 09/28/25 21:30 Dose: 650 mg Documented By: JOLEEN Calcium Carbonate (Calcium Carbonate 750 Mg Tab.Chew) 750 mg PO Q4H PRN PRN Reason: Heartburn Dorzolamide HCl (Dorzolamide Hcl 2 % Ophth Myranda 10 Ml Drpbtl) 1 drop EYE-BOTH BID [facility] Last Admin: 09/29/25 09:36 Dose: 1 drop Documented By: ANDREW Empagliflozin (Empagliflozin 10 Mg Tablet) 10 mg PO DAILY [facility] Last Admin: 09/29/25 09:36 Dose: 10 mg Documented By: ANDREW Gabapentin (Gabapentin 100 Mg Capsule) 200 mg PO BEDTIME [facility] Last Admin: 09/28/25 21:23 Dose: 200 mg Documented By: JOLEEN Heparin Sodium (Porcine) (Heparin Sodium,Porcine 5,000 Unit/Ml Vial) 5,000 unit SUBCUT Q12H [facility] Last Admin: 09/29/25 05:06 Dose: Not Given Documented By: JOLEEN Non-Admin Reason: Patient Refused Caspofungin 50 mg/ Sodium (Chloride) 250 mls @ 250 mls/hr IV Q24H [facility] Last Infusion: 09/28/25 13:15 Dose: Infused Documented By: MARY Piperacillin Sod/Tazobactam (Sod 3.375 gm/ Sodium Chloride) 50 mls @ 100 mls/hr IV Q6H [facility] Last Infusion: 09/29/25 10:32 Dose: Infused Documented By: ANDREW Furosemide 200 mg/ Sodium (Chloride) 100 mls @ 2.5 mls/hr IVCONT .Q24H [facility] Last Infusion: 09/28/25 11:22 Dose: 5 mg/hr, 2.5 mls/hr Documented By: MARY Vancomycin HCl 500 mg/ Sodium (Chloride) 110 mls @ 110 mls/hr IV Q24H [facility] Last Infusion: 09/28/25 18:06 Dose: Infused Documented By: MARY Potassium Chloride (Potassium Chloride/H20) 10 meq in 100 mls @ 100 mls/hr IV Q1H [facility] Stop: 09/29/25 11:44 Last Admin: 09/29/25 10:22 Dose: 100 mls/hr Documented By: ANDREW Lidocaine (Lidocaine 4 % Patch Adh..Patch) 1 patch TRANSDERMA DAILY [facility]; Protocol Last Admin: 09/29/25 09:52 Dose: Not Given Documented By: ANDREW Non-Admin Reason: Patient Refused Lidocaine (Lidocaine 4 % Patch Adh..Patch) 1 patch TRANSDERMA DAILY [facility]; Protocol Last Admin: 09/29/25 09:56 Dose: Not Given Documented By: ANDREW Non-Admin Reason: Patient Refused Lidocaine (Lidocaine 4 % Patch Adh..Patch) 2 patch TRANSDERMA DAILY [facility]; Protocol Last Admin: 09/29/25 09:40 Dose: 2 patch Documented By: ANDREW Magnesium Hydroxide (Milk Of Magnesia 30 Ml Oral.Susp) 30 ml PO DAILY PRN PRN Reason: Constipation Melatonin (Melatonin 3 Mg Tablet) 6 mg PO BEDTIME PRN PRN Reason: Insomnia Metoprolol Succinate (Metoprolol Succinate Er 50 Mg Tab.Er.24h) 50 mg PO BID [facility]; Protocol Last Admin: 09/29/25 09:35 Dose: 50 mg Documented By: ANDREW Multivitamins/Vitamin C (Multivitamin Tablet) 1 tab PO DAILY [facility] Last Admin: 09/29/25 09:35 Dose: 1 tab Documented By: ANDREW Patient Own Med ( Ambrisentan [ Letairis] 5 Mg Tablet) 5 mg PO BEDTIME [facility] Last Admin: 09/28/25 21:22 Dose: 5 mg Documented By: JOLEEN Patient Own Med ( Treprostinil Diolamine [Orenitram ] 1 Mg Tablet Extended Release) 3 mg PO TID [facility] Last Admin: 09/29/25 09:36 Dose: 3 mg Documented By: ANDREW Ondansetron HCl (Ondansetron Hcl 4 Mg/2 Ml Vial) 4 mg IVPUSH Q8H PRN PRN Reason: Nausea and Vomiting Last Admin: 09/27/25 22:43 Dose: 4 mg Documented By: ANDREW Oxycodone HCl (Oxycodone Hcl Immed Release 5 Mg Tablet) 5 mg PO QID PRN PRN Reason: Pain, Moderate(Pain Scale 4-6) Last Admin: 09/29/25 09:35 Dose: 5 mg Documented By: ANDREW Pharmacy Consult (Consult Rx Vancomycin Dosing) 1 each MISCELLANE DAILY PRN PRN Reason: Consult order Quetiapine Fumarate (Quetiapine Fumarate 25 Mg Tablet) 25 mg PO BEDTIME [facility] Last Admin: 09/28/25 21:23 Dose: 25 mg Documented By: JOLEEN Sildenafil Citrate (Sildenafil Citrate 20 Mg Tablet) 20 mg PO TID [facility] Last Admin: 09/29/25 09:36 Dose: 20 mg Documented By: ANDREW Sodium Chloride (0.9 % Sodium Chloride Flush 3 Ml Syringe) 3 ml IVFLUSH QSHIFT [facility] Last Admin: 09/29/25 09:36 Dose: 3 ml Documented By: ANDREW Labs 09/29/25 06:24 09/29/25 06:24 Labs: Laboratory Results - last 24 hr 09/29/25 06:24 MCV 100.4 H MCH 31.0 MCHC 30.9 L RDW 18.7 H Plt Count 134 L D MPV 9.7 Absolute Nucleated RBC 0.000 Nucleated RBC % (auto) 0.0 Absolute Retic 0.083 Percent Retic 3.6 H Immature Retic Fraction 26.7 H Retic Hgb Equivalent 33.0 Anion Gap 12 Estim Creat Clear Calc 29.0 Estimated GFR 40 Random Glucose 95 Calcium 7.8 L Magnesium 1.7 Iron 25 L TIBC 148 L % Saturation 17 Unsat Iron Binding 123 Ferritin 256 H Lactate Dehydrogenase 214 NT-Pro-B Natriuret Pep 88533.1 H Microbiology Microbiology Results: Microbiology 09/25/25 16:43 Gram Stain - Final Sacrum Routine Culture - Final Pseudomonas aeruginosa Enterococcus faecalis Procedures Date of Service Date of Service: 09/29/25 Progress Note: A&P Assessment and plan (1) Sacral decubitus ulcer: Status: Acute Plan Decubitus ulcer overall improved with less slough although still some present at wound base. Continue with wet to dry saline soaked packing followed by allevyn foam pad, remainder of wound care recommendations and supportive care. No surgical debridement currently indicated. Time Spent With Patient Time: Total time managing care of this patient today ____ minutes. Quality Stroke Does the patient have a stroke diagnosis?: No VTE Prior VTE?: No VTE Risk Level:: Medical - moderate - high VTE Device Contraindication: Treatment Not Indicated VTE Drug Contraindication: N/A - Med Ordered
--- NOTE | 2025-09-29 12:30 | HO.PM.IMPN ---
Subjective Subjective Date of Service: 09/29/25 Interval History: BP low; Lasix gtt stopped and given 500 mL NS c/o coccygeal pain Review of Systems Review of Systems: Yes all other systems are reviewed and are negative Physical Exam Vital Signs: Vital Signs: Last Vital Signs Temp 97.8 F 09/29/25 11:57 Pulse 83 09/29/25 11:57 Resp 18 09/29/25 11:57 BP 84/34 L 09/29/25 12:25 Pulse Ox 94 09/29/25 11:57 O2 Del Method Nasal Cannula 09/29/25 11:57 O2 Flow Rate 3 09/29/25 11:57 BMI result Body Mass Index 23.2 Gen: weak, chronically ill HEENT: sclera anicteric, moist mucus membranes Neck: supple, no JVD, L subclavian port Lungs: diminished Heart: regular, no murmurs Abd: soft, non-tender, non-distended, LLQ ostomy Ext: no edema Skin: warm/well-perfused Neuro: alert and oriented x3, no focal findings Psych: appropriate affect Objective Data Active Medications Acetaminophen (Acetaminophen 325 Mg Tablet) 650 mg PO Q6H PRN PRN Reason: Pain, Mild 1-3,fever,headache Last Admin: 09/28/25 21:30 Dose: 650 mg Documented By: JOLEEN Calcium Carbonate (Calcium Carbonate 750 Mg Tab.Chew) 750 mg PO Q4H PRN PRN Reason: Heartburn Dorzolamide HCl (Dorzolamide Hcl 2 % Ophth Myranda 10 Ml Drpbtl) 1 drop EYE-BOTH BID [facility] Last Admin: 09/29/25 09:36 Dose: 1 drop Documented By: ANDREW Empagliflozin (Empagliflozin 10 Mg Tablet) 10 mg PO DAILY [facility] Last Admin: 09/29/25 09:36 Dose: 10 mg Documented By: ANDREW Gabapentin (Gabapentin 100 Mg Capsule) 200 mg PO BEDTIME [facility] Last Admin: 09/28/25 21:23 Dose: 200 mg Documented By: JOLEEN Heparin Sodium (Porcine) (Heparin Sodium,Porcine 5,000 Unit/Ml Vial) 5,000 unit SUBCUT Q12H [facility] Last Admin: 09/29/25 05:06 Dose: Not Given Documented By: JOLEEN Non-Admin Reason: Patient Refused Caspofungin 50 mg/ Sodium (Chloride) 250 mls @ 250 mls/hr IV Q24H [facility] Last Infusion: 09/28/25 13:15 Dose: Infused Documented By: MARY Piperacillin Sod/Tazobactam (Sod 3.375 gm/ Sodium Chloride) 50 mls @ 100 mls/hr IV Q6H [facility] Last Infusion: 09/29/25 10:32 Dose: Infused Documented By: ANDREW Vancomycin HCl 500 mg/ Sodium (Chloride) 110 mls @ 110 mls/hr IV Q24H [facility] Last Infusion: 09/28/25 18:06 Dose: Infused Documented By: MARY Sodium Chloride (Ns) 250 mls @ 999 mls/hr IV .Q16M [facility] Stop: 09/29/25 12:45 Last Admin: 09/29/25 12:26 Dose: 999 mls/hr Documented By: ANDREW Lidocaine (Lidocaine 4 % Patch Adh..Patch) 1 patch TRANSDERMA DAILY [facility]; Protocol Last Admin: 09/29/25 09:52 Dose: Not Given Documented By: ANDREW Non-Admin Reason: Patient Refused Lidocaine (Lidocaine 4 % Patch Adh..Patch) 1 patch TRANSDERMA DAILY [facility]; Protocol Last Admin: 09/29/25 09:56 Dose: Not Given Documented By: ANDREW Non-Admin Reason: Patient Refused Lidocaine (Lidocaine 4 % Patch Adh..Patch) 2 patch TRANSDERMA DAILY [facility]; Protocol Last Admin: 09/29/25 09:40 Dose: 2 patch Documented By: ANDREW Magnesium Hydroxide (Milk Of Magnesia 30 Ml Oral.Susp) 30 ml PO DAILY PRN PRN Reason: Constipation Melatonin (Melatonin 3 Mg Tablet) 6 mg PO BEDTIME PRN PRN Reason: Insomnia Metoprolol Succinate (Metoprolol Succinate Er 50 Mg Tab.Er.24h) 50 mg PO BID [facility]; Protocol Last Admin: 09/29/25 09:35 Dose: 50 mg Documented By: ANDREW Multivitamins/Vitamin C (Multivitamin Tablet) 1 tab PO DAILY [facility] Last Admin: 09/29/25 09:35 Dose: 1 tab Documented By: ANDREW Patient Own Med ( Ambrisentan [ Letairis] 5 Mg Tablet) 5 mg PO BEDTIME [facility] Last Admin: 09/28/25 21:22 Dose: 5 mg Documented By: JOLEEN Patient Own Med ( Treprostinil Diolamine [Orenitram ] 1 Mg Tablet Extended Release) 3 mg PO TID [facility] Last Admin: 09/29/25 09:36 Dose: 3 mg Documented By: ANDREW Ondansetron HCl (Ondansetron Hcl 4 Mg/2 Ml Vial) 4 mg IVPUSH Q8H PRN PRN Reason: Nausea and Vomiting Last Admin: 09/27/25 22:43 Dose: 4 mg Documented By: ANDREW Oxycodone HCl (Oxycodone Hcl Immed Release 5 Mg Tablet) 5 mg PO QID PRN PRN Reason: Pain, Moderate(Pain Scale 4-6) Last Admin: 09/29/25 09:35 Dose: 5 mg Documented By: ANDREW Pharmacy Consult (Consult Rx Vancomycin Dosing) 1 each MISCELLANE DAILY PRN PRN Reason: Consult order Quetiapine Fumarate (Quetiapine Fumarate 25 Mg Tablet) 25 mg PO BEDTIME [facility] Last Admin: 09/28/25 21:23 Dose: 25 mg Documented By: JOLEEN Sildenafil Citrate (Sildenafil Citrate 20 Mg Tablet) 20 mg PO TID [facility] Last Admin: 09/29/25 09:36 Dose: 20 mg Documented By: ANDREW Sodium Chloride (0.9 % Sodium Chloride Flush 3 Ml Syringe) [facility] Last Admin: 09/29/25 09:36 Dose: 3 ml Documented By: ANDREW Labs 09/29/25 06:24 09/29/25 06:24 Labs: Laboratory Results - last 24 hr 09/29/25 06:24 MCV 100.4 H MCH 31.0 MCHC 30.9 L RDW 18.7 H Plt Count 134 L D MPV 9.7 Absolute Nucleated RBC 0.000 Nucleated RBC % (auto) 0.0 Absolute Retic 0.083 Percent Retic 3.6 H Immature Retic Fraction 26.7 H Retic Hgb Equivalent 33.0 Anion Gap 12 Estim Creat Clear Calc 29.0 Estimated GFR 40 Random Glucose 95 Calcium 7.8 L Magnesium 1.7 Iron 25 L TIBC 148 L % Saturation 17 Unsat Iron Binding 123 Ferritin 256 H Lactate Dehydrogenase 214 NT-Pro-B Natriuret Pep 91413.1 H Microbiology Microbiology Results: Microbiology 09/25/25 16:43 Gram Stain - Final Sacrum Routine Culture - Final Pseudomonas aeruginosa Enterococcus faecalis Assessment and Plan (1) Sacral decubitus ulcer: Status: Acute (2) Decompensated heart failure: Status: Acute Plan d5, 80yo F with Sjogren syndrome, scleroderma, CREST, chronic diastolic CHF, pulmonary hypertension, CKD 3, myelodysplastic syndrome, intestinal AV malformations, and avascular necrosis of the hip s/p recent KAREN at [facility] [place], recent admission to [facility] for aspiration PNA/ERIC/achalasia with apersitalsis/candidal esophagitis presented with worsening edema and failure to thrive acute-chronic HFpEF, R-sided and diastolic pHTN - stop IV furosemide drip; hold metoprolol - continue sildenafil + ambrisentan + treprostinil hypoxic respiratory failure - suspect sequelae of aspiration pneumonia from recent admission; on broad-spectrum antibiotics to cover sacral osteomyelitis coccygeal ulcer with exposed bone/sacral osteomyelitis - Gen Surg consulted : There is a thin layer of slough that will likely improve with current wound care regimen of medihoney and silver alginate. Alternatively can attempt wet to dry packing to help debride. Bone is palpable but not currently visible. Continue good daily wound care, offloading, nutritional support. Will continue to follow for possible surgical debridement . Today's update: Decubitus ulcer overall improved with less slough although still some present at wound base. Continue with wet to dry saline soaked packing followed by allevyn foam pad, remainder of wound care recommendations and supportive care. No surgical debridement currently indicated. - 09/27- vancomycin + Zosyn, CT pelvis: Exposed sacral bone in the right inferior sacrum highly suggests osteomyelitis although no gross radiographic/CT changes are seen. There is a large sacral decubitus ulcer. ID consulted; long-term IV ABX only if surgical plan to close wound CKD3 - monitor SCr hypoK - replete IV/PO, recheck in AM candidal esophagitis - reviewed [facility] records; plan was micafungin to continue til 10/05; will substitute caspofungin while here. There was concern for IE as TTE suggested aortic vegetation vs. calcification and pt had splenic infarts on CT abd, but blood cultures and SERGIO were negative aperistalsis of esophagus - SUPER[employer] consulted: NDD3 solids, thin liquids MDS - monitor blood counts. T+S, transfuse if Hb <7 VTE ppx: UFH dispo: TBD In my clinical judgment, the patient requires continued inpatient hospitalization for the following reasons: IV ABX, IV diuresis, IV antifungal Total time managing care of this patient today: 55 minutes. Quality Stroke Does the patient have a stroke diagnosis?: No VTE Prior VTE?: No VTE Risk Level:: Medical - moderate - high VTE Device Contraindication: Treatment Not Indicated VTE Drug Contraindication: N/A - Med Ordered
--- NOTE | 2025-09-29 14:11 | MHC.CM.PN ---
Pt. not ready to DC, she is receiving IV ABX, anti fungal, and dieresis. Pt. has staff at her home, for her and her .
--- NOTE | 2025-09-29 14:12 | MHC.CLN ---
F/U PT WITH INCREASED NUTRITION RISK R/T PRESSURE INJURY SKIN WITH UNSTAGEABLE AREA TO COCCYX, DTI TO LEFT HEEL PO INTAKE 0 X 3 MEALS; 75% X 1 MEAL DIET RX: 2GM NA, CHOPPED WITH ENSURE TID ENSURE TID (1050 KCALS, 60 G PROTEIN) TO PROMOTE WOUND HEALING MONITOR PO INTAKE AND ENCOURAGE SUPPLEMENT
--- NOTE | 2025-09-29 15:01 | MHC.SLORD ---
Speech Language Pathology Order Status: Pt refused PO this afternoon, stating 'I just want to sleep'. Pt at bedside. Pt and spouse had no questions about pt current diet (NDD3 with thin liquids. PRODUCT MANUFACTURING PROFESSIONAL to follow as indicated.
--- NOTE | 2025-09-29 16:11 | PC.NURSE ---
11:30 BP: 84/38 Patient drowsy but alert and oriented, c/o feeling tired . MD notified, IV lasix drip DCD and 250cc bolus ordered. Repeat BP: 12:17 84/34. No change in patient's mentation, alert and oriented but drowsy.. MD notified, order to give another 250cc bolus. 12:50 repeat BP check 84/30. MD notified, new order for 500cc bolus to be administered. 1350 BP 102/32, MD notified, new order for 2 units RBCs to be administered.
--- NOTE | 2025-09-29 23:19 | P.PNID_ITS ---
Subjective Subjective Date of Service: 09/29/25 Critical Care Time (minutes): 15 Comment: she has bone not visible but palpable sacrum area looks much! better today,appears maybe some pink granulation tissue,less slough Objective Data Labs 09/29/25 06:24 09/29/25 06:24 Labs: Laboratory Results - last 24 hr 09/29/25 09/29/25 09/29/25 06:24 13:17 15:31 WBC 4.7 L RBC 2.32 L Hgb 7.2 L Hct 23.3 L MCV 100.4 H MCH 31.0 MCHC 30.9 L RDW 18.7 H Plt Count 134 L D MPV 9.7 Absolute Nucleated RBC 0.000 Nucleated RBC % (auto) 0.0 Absolute Retic 0.083 Percent Retic 3.6 H Immature Retic Fraction 26.7 H Retic Hgb Equivalent 33.0 Sodium 143 Potassium 2.8 L* Chloride 114 H Carbon Dioxide 20 L Anion Gap 12 BUN 40 H Creatinine 1.28 Estim Creat Clear Calc 29.0 Estimated GFR 40 Random Glucose 95 Lactic Acid 1.0 Calcium 7.8 L Magnesium 1.7 Iron 25 L TIBC 148 L % Saturation 17 Unsat Iron Binding 123 Ferritin 256 H Lactate Dehydrogenase 214 NT-Pro-B Natriuret Pep 09862.1 H Random Vancomycin 21.7 H Blood Type B Positive Antibody Screen NEGATIVE Crossmatch See Detail Microbiology Microbiology Results: Microbiology 09/25/25 16:43 Sacrum Gram Stain - Final 09/25/25 16:43 Sacrum Routine Culture - Final Pseudomonas aeruginosa Enterococcus faecalis 09/25/25 16:55 Blood - Venous Blood Culture - Preliminary No growth after 48 hours. 09/25/25 16:57 Blood - Venous Blood Culture - Preliminary No growth after 48 hours. Physical Exam 2 Vital Signs: Vital Signs: Last Vital Signs Temp 97.3 F 09/29/25 20:00 Pulse 96 09/29/25 20:00 Resp 16 09/29/25 20:00 BP 134/64 09/29/25 20:00 Pulse Ox 97 09/29/25 19:19 O2 Del Method Nasal Cannula 09/29/25 19:19 O2 Flow Rate 3 09/29/25 19:19 BMI result Body Mass Index 23.2 Const: General: cooperative HEENT: Head: Yes normal to inspection Face and sinus: Yes normal facial exam Mouth: Normal oral and palatal mucosa present Teeth and gingiva: d entition normal Eyes: General: appearance normal, both eyes and all related structures P upils: Equal, round and reactive pupils present Resp: Effort & Inspection: normal respiratory effort Cardio: Rate: regular rate Rhythm: regular rhythm GI: Palpation (GI): Soft to palpation and nontender Back/Spine/Pelvis: Other: wound not as deep as appeared some pink areas,healing Skin: General skin exam: no rashes or lesions noted Neuro: General: moves all extremities Cranial nerves: Yes Equal, round and reactive pupils present Extrem: General: Yes normal to inspection Psych: Appearance: grossly normal Assessment and Plan Assessment and plan (1) Sacral decubitus ulcer: Problem details: OM,pseudomonas and enterococcus faecalis Status: Acute Assessment and Plan: 6 weeks IV Daptomycin and Zosyn (2) Fungal esophagitis: Problem details: Finish Caspofungin 10/05 Status: Acute Time Spent With Patient Time: Total time managing care of this patient today ____ minutes.
--- NOTE | 2025-09-29 23:59 | PC.NURSE ---
Pt receiving second unit of blood. Blood transfusion ran at 75m/hr due to pt risk of TACO. Per TAR blood was to be finished transfusing at 3 hours and 30 minutes from the time the blood was hung. Blood was stopped per order. 88 ml of blood was remaining in bag and wasted in the TAR.
[2025-09-30] VITALS (7 sets, daily range): BP systolic 114–153; BP diastolic 56–69; PULSE 68–116; RESP 14–20; TEMP 36–37; O2SAT 94–98
[2025-09-30] MEDS: oxyCODONE HCl Immed Release 5 MG TABLET PO ×2 (01:57→12:54)
[2025-09-30 06:37] LABS: Hematocrit 29.2 % (37.0-47.0); Hemoglobin 9.3 g/dl (12.0-16.0); Mean Corpuscular HGB Conc 31.8 g/dl (31.0-35.0); Mean Corpuscular Hemoglobin 29.9 pg (27.0-33.0); Mean Corpuscular Volume 93.9 fL (80.0-98.0); NRBC Abs Auto 0.000 X10*3/uL (0.0-0.012); NRBC Pct Auto 0.0 /100WBC (0.0-0.2); Platelet Count 109 X10*3/uL (160-400); Red Blood Count 3.11 X10*6/uL (4.20-5.50); White Blood Count 5.5 X10*3/uL (4.8-10.8)
[2025-09-30 06:58] LABS: Anion Gap 12 (12-20); Blood Urea Nitrogen 37 mg/dL (9-16); Calcium 7.9 mg/dL (8.4-10.2); Carbon Dioxide 20 mmol/L (22-29); Chloride 115 mmol/L (96-108); Creatinine Clr Calc Pharmacy 30.2; Estimated Glomerular Filt Rate 42; Magnesium 1.5 mg/dL (1.6-2.6); Potassium 3.3 mmol/L (3.3-5.1); Sodium 144 mmol/L (135-145)
--- NOTE | 2025-09-30 07:02 | HE.PHANOTE ---
Re Vanco Random still elevated, clearing slower than projected. Level decreased ~1.0 in 15 hours, will get another level tomorrow at 0600 before giving another 500mg dose.
[2025-09-30 07:33] LABS: Folate 12.4 ng/mL (> or = 4.0); Vitamin B12 1668 pg/mL (200-900)
--- NOTE | 2025-09-30 09:17 | P.PNGS_ITS ---
Subjective Subjective Date of Service: 09/30/25 Interval history: Currently lying flat on back. Continues to complain of pain at coccyx. Reports appetite is minimal but is trying to drink ensure. States she would prefer to go home following hospitalization, has 24h care. Physical Exam 2 Vital Signs: Vital Signs: Last Vital Signs Temp 97.9 F 09/30/25 07:50 Pulse 87 09/30/25 07:50 Resp 20 09/30/25 07:50 BP 133/61 09/30/25 07:50 Pulse Ox 94 09/30/25 07:50 O2 Del Method Nasal Cannula 09/30/25 07:50 O2 Flow Rate 3 09/30/25 07:50 BMI result Body Mass Index 23.2 Const: General: alert; No ill appearing Orientation/consciousness: patient oriented x3 Resp: Other: mildly short of breath Cardio: Rate: tachycardic Neuro: General: patient oriented x3 Objective Data Active Medications Acetaminophen (Acetaminophen 325 Mg Tablet) 650 mg PO Q6H PRN PRN Reason: Pain, Mild 1-3,fever,headache Last Admin: 09/28/25 21:30 Dose: 650 mg Documented By: JOLEEN Calcium Carbonate (Calcium Carbonate 750 Mg Tab.Chew) 750 mg PO Q4H PRN PRN Reason: Heartburn Dorzolamide HCl (Dorzolamide Hcl 2 % Ophth Myranda 10 Ml Drpbtl) 1 drop EYE-BOTH BID [facility] Last Admin: 09/29/25 20:13 Dose: 1 drop Documented By: JULIO Empagliflozin (Empagliflozin 10 Mg Tablet) 10 mg PO DAILY [facility] On Hold: 09/29/25 12:53 Last Admin: 09/29/25 09:36 Dose: 10 mg Documented By: ANDREW Gabapentin (Gabapentin 100 Mg Capsule) 200 mg PO BEDTIME [facility] Last Admin: 09/29/25 19:55 Dose: 200 mg Documented By: JULIO Heparin Sodium (Porcine) (Heparin Sodium,Porcine 5,000 Unit/Ml Vial) 5,000 unit SUBCUT Q12H [facility] Last Admin: 09/30/25 06:33 Dose: Not Given Documented By: JULIO Non-Admin Reason: Patient Refused Caspofungin 50 mg/ Sodium (Chloride) 250 mls @ 250 mls/hr IV Q24H [facility] Last Infusion: 09/29/25 14:47 Dose: Infused Documented By: ANDREW Piperacillin Sod/Tazobactam (Sod 3.375 gm/ Sodium Chloride) 50 mls @ 100 mls/hr IV Q6H [facility] Last Infusion: 09/30/25 03:27 Dose: Infused Documented By: JULIO Vancomycin HCl 500 mg/ Sodium (Chloride) 110 mls @ 110 mls/hr IV Q24H [facility] Lidocaine (Lidocaine 4 % Patch Adh..Patch) 1 patch TRANSDERMA DAILY [facility]; Protocol Last Admin: 09/29/25 09:52 Dose: Not Given Documented By: ANDREW Non-Admin Reason: Patient Refused Lidocaine (Lidocaine 4 % Patch Adh..Patch) 1 patch TRANSDERMA DAILY [facility]; Protocol Last Admin: 09/29/25 09:56 Dose: Not Given Documented By: ANDREW Non-Admin Reason: Patient Refused Lidocaine (Lidocaine 4 % Patch Adh..Patch) 2 patch TRANSDERMA DAILY [facility]; Protocol Last Admin: 09/29/25 09:40 Dose: 2 patch Documented By: ANDREW Magnesium Hydroxide (Milk Of Magnesia 30 Ml Oral.Susp) 30 ml PO DAILY PRN PRN Reason: Constipation Melatonin (Melatonin 3 Mg Tablet) 6 mg PO BEDTIME PRN PRN Reason: Insomnia Metoprolol Succinate (Metoprolol Succinate Er 50 Mg Tab.Er.24h) 50 mg PO DAILY [facility]; Protocol Multivitamins/Vitamin C (Multivitamin Tablet) 1 tab PO DAILY [facility] Last Admin: 09/29/25 09:35 Dose: 1 tab Documented By: ANDREW Patient Own Med ( Ambrisentan [ Letairis] 5 Mg Tablet) 5 mg PO BEDTIME [facility] On Hold: 09/29/25 12:53 Last Admin: 09/28/25 21:22 Dose: 5 mg Documented By: JOLEEN Patient Own Med ( Treprostinil Diolamine [Orenitram ] 1 Mg Tablet Extended Release) 3 mg PO TID [facility] On Hold: 09/29/25 12:53 Last Admin: 09/29/25 09:36 Dose: 3 mg Documented By: ANDREW Ondansetron HCl (Ondansetron Hcl 4 Mg/2 Ml Vial) 4 mg IVPUSH Q8H PRN PRN Reason: Nausea and Vomiting Last Admin: 09/27/25 22:43 Dose: 4 mg Documented By: ANDREW Oxycodone HCl (Oxycodone Hcl Immed Release 5 Mg Tablet) 5 mg PO QID PRN PRN Reason: Pain, Moderate(Pain Scale 4-6) Last Admin: 09/30/25 01:57 Dose: 5 mg Documented By: JULIO Pharmacy Consult (Consult Rx Vancomycin Dosing) 1 each MISCELLANE DAILY PRN PRN Reason: Consult order Quetiapine Fumarate (Quetiapine Fumarate 25 Mg Tablet) 25 mg PO BEDTIME [facility] Last Admin: 09/29/25 19:55 Dose: 25 mg Documented By: JULIO Sildenafil Citrate (Sildenafil Citrate 20 Mg Tablet) 20 mg PO TID [facility] On Hold: 09/29/25 12:53 Last Admin: 09/29/25 09:36 Dose: 20 mg Documented By: ANDREW Sodium Chloride (0.9 % Sodium Chloride Flush 3 Ml Syringe) 3 ml IVFLUSH QSMTFT [facility] Last Admin: 09/29/25 19:56 Dose: 3 ml Documented By: JULIO Labs 09/30/25 06:15 09/30/25 06:15 Labs: Laboratory Results - last 24 hr 09/29/25 09/29/25 09/30/25 13:17 15:31 06:15 MCV 93.9 D MCH 29.9 MCHC 31.8 RDW 20.7 H Plt Count 109 L MPV 9.2 L Absolute Nucleated RBC 0.000 Nucleated RBC % (auto) 0.0 Anion Gap 12 Estim Creat Clear Calc 30.2 Estimated GFR 42 Random Glucose 81 Lactic Acid 1.0 Calcium 7.9 L Magnesium 1.5 L NT-Pro-B Natriuret Pep 9664.1 H Vitamin B12 1668 H Folate 12.4 Random Vancomycin 21.7 H 20.9 H Blood Type B Positive Antibody Screen NEGATIVE Crossmatch See Detail Microbiology Microbiology Results: Microbiology 09/25/25 16:43 Gram Stain - Final Sacrum Routine Culture - Final Pseudomonas aeruginosa Enterococcus faecalis Procedures Date of Service Date of Service: 09/30/25 Progress Note: A&P Assessment and plan (1) Sacral decubitus ulcer: Status: Acute Plan Will return to change dressing and reassess decubitus ulcer, patient uncomfortable appearing and mildly short of breath. CT scan pelvis did not show evidence of osteomyelitis but ID recommend treating with 6 weeks of IV abx. We did discuss wound vac placement hopefully in the next couple of days if wound continues to improve. She would like to proceed with this. Will plan for tomorrow pending dressing change today. Discussed with hospitalist. Encouraged protein supplementation to promote wound healing. Time Spent With Patient Time: Total time managing care of this patient today ____ minutes. Quality Stroke Does the patient have a stroke diagnosis?: No VTE Prior VTE?: No VTE Risk Level:: Medical - moderate - high VTE Device Contraindication: Treatment Not Indicated VTE Drug Contraindication: N/A - Med Ordered
[2025-09-30] MEDS: 0.9 % Sodium Chloride Flush 3 ML SYRINGE IVFLUSH ×3 (09:45→20:06)
[2025-09-30] MEDS: Metoprolol Succinate ER 50 MG TAB.ER.24H PO (09:47)
[2025-09-30] MEDS: Lidocaine 4 % Patch ADH..PATCH 1 PATCH TRANSDERMA ×2 (09:48→09:49)
[2025-09-30] MEDS: Lidocaine 4 % Patch ADH..PATCH 2 PATCH TRANSDERMA (09:49)
--- NOTE | 2025-09-30 11:31 | MHC.CM.PN ---
Met with pt to review new clinical findings: IV ATB x 6 weeks through existing port and new wound vac placement scheduled for 10/01. Pt would like to transfer to a [facility] center given the medical complexity - she will contact her son via phone to ask about facilities: CM to make broad referrals to initiate the process. CM to await call from pt's son, Doug to review d/c plan. CM to follow
[2025-09-30] MEDS: Dorzolamide HCl 2 % Ophth Sol 10 ML DRPBTL 1 DROP EYE-BOTH ×2 (11:43→20:09)
--- NOTE | 2025-09-30 13:32 | MHC.SL.SWA ---
Speech Pathologist Impression: Risk of Aspiration, Oropharyngeal Dysphagia, Pharyngoesophageal dysphagia Risk of Aspiration Due to: Positioning, GI conditions Dysphasia Diet Status:No Change Liquid Consistency and Strategies for Safe Swallow: Liquid Intake Recommendation: Thin Liquid Intake Strategies: Small Sips Solid Food Consistency: Dietary Recommendations: Chopped/Advanced (NDD3) Additional Modifications to Solid Foods: Recommend direct supervision during PO intake- Patient to be OOB for mealtime or with HoB elevated as close to 70-90 degrees as tolerated per patient Patient presents with mild oropharyngeal dysphagia, note behavior of softening foods with water and patient's reports of previously needing finely cut up food during her last hospitalization for aspiration PNA. Patient does have significant esophageal history, including achalasia, aperistalsis, and candidal esophagitis. Recommend CHOPPED/ADVANCED (NDD3) solids and THIN liquids, pills WHOLE w/ LIQUID, w/ strategies to address suspected esophageal dysphagia: upright 90 degree positioning during PO intake and for at least 60 min afterwards, moisten food w/ sauces/gravies, chew food well, alternate bites w/ liquid wash for clearance. Oral Medication Intake: Whole with Liquid Please contact the pharmacy regarding appropriate crushable or liquid drug formulations that are available whenever modified delivery is recommended. Compensatory Strategies and Precautions to be Taken for Safe Swallow: Sitting Upright (90 deg) Double Swallow Small Bites and Sips Alternate Liquids/Solids Rate of Ingestion Change Supervision While Eating and Drinking for Safe Swallow: Direct Supervision (1:1) Swallowing Recommended Treatments: Compens. Strategy Educat. Recommendation for Speech: Inpatient Speech Therapy Frequency/Duration: M-F while inpatient Date Range for Service Req: Timeline to reassess: Grocery Buyer Clinican/Clinical Fellow: No Supervisory Statement: I have reviewed and agree with the student/clinical fellow's documentation: N/A Speech Language Pathologist: Karla Pool M.A., CCC-BLOCK HAND
--- NOTE | 2025-09-30 14:29 | HO.PM.IMPN ---
Subjective Subjective Date of Service: 09/30/25 Interval History: Hb improved BP improved wound also improving Review of Systems Review of Systems: Yes all other systems are reviewed and are negative Physical Exam Vital Signs: Vital Signs: Last Vital Signs Temp 98.6 F 09/30/25 12:00 Pulse 116 H 09/30/25 12:00 Resp 20 09/30/25 12:00 BP 130/69 09/30/25 12:00 Pulse Ox 97 09/30/25 12:00 O2 Del Method Nasal Cannula 09/30/25 12:00 O2 Flow Rate 3.5 09/30/25 12:00 BMI result Body Mass Index 23.2 Gen: weak, chronically ill HEENT: sclera anicteric, moist mucus membranes Neck: supple, no JVD, L subclavian port Lungs: diminished Heart: regular, no murmurs Abd: soft, non-tender, non-distended, LLQ ostomy Ext: no edema Skin: warm/well-perfused Neuro: alert and oriented x3, no focal findings Psych: appropriate affect Objective Data Active Medications Acetaminophen (Acetaminophen 325 Mg Tablet) 650 mg PO Q6H PRN PRN Reason: Pain, Mild 1-3,fever,headache Last Admin: 09/28/25 21:30 Dose: 650 mg Documented By: JOLEEN Calcium Carbonate (Calcium Carbonate 750 Mg Tab.Chew) 750 mg PO Q4H PRN PRN Reason: Heartburn Dorzolamide HCl (Dorzolamide Hcl 2 % Ophth Myranda 10 Ml Drpbtl) 1 drop EYE-BOTH BID [facility] Last Admin: 09/30/25 11:43 Dose: 1 drop Documented By: SALIMA Empagliflozin (Empagliflozin 10 Mg Tablet) 10 mg PO DAILY [facility] On Hold: 09/29/25 12:53 Last Admin: 09/29/25 09:36 Dose: 10 mg Documented By: ANDREW Gabapentin (Gabapentin 100 Mg Capsule) 200 mg PO BEDTIME [facility] Last Admin: 09/29/25 19:55 Dose: 200 mg Documented By: JULIO Heparin Sodium (Porcine) (Heparin Sodium,Porcine 5,000 Unit/Ml Vial) 5,000 unit SUBCUT Q12H [facility] Last Admin: 09/30/25 06:33 Dose: Not Given Documented By: JULIO Non-Admin Reason: Patient Refused Caspofungin 50 mg/ Sodium (Chloride) 250 mls @ 250 mls/hr IV Q24H [facility] Last Infusion: 09/30/25 14:12 Dose: Infused Documented By: ELIAZAR Piperacillin Sod/Tazobactam (Sod 3.375 gm/ Sodium Chloride) 50 mls @ 100 mls/hr IV Q6H [facility] Last Infusion: 09/30/25 10:00 Dose: Infused Documented By: SALIMA Vancomycin HCl 500 mg/ Sodium (Chloride) 110 mls @ 110 mls/hr IV Q24H [facility] Lidocaine (Lidocaine 4 % Patch Adh..Patch) 1 patch TRANSDERMA DAILY [facility]; Protocol Last Admin: 09/30/25 09:48 Dose: 1 patch Documented By: SALIMA Lidocaine (Lidocaine 4 % Patch Adh..Patch) 1 patch TRANSDERMA DAILY [facility]; Protocol Last Admin: 09/30/25 09:49 Dose: 1 patch Documented By: SALIMA Lidocaine (Lidocaine 4 % Patch Adh..Patch) 2 patch TRANSDERMA DAILY [facility]; Protocol Last Admin: 09/30/25 09:49 Dose: 2 patch Documented By: SALIMA Magnesium Hydroxide (Milk Of Magnesia 30 Ml Oral.Susp) 30 ml PO DAILY PRN PRN Reason: Constipation Melatonin (Melatonin 3 Mg Tablet) 6 mg PO BEDTIME PRN PRN Reason: Insomnia Metoprolol Succinate (Metoprolol Succinate Er 50 Mg Tab.Er.24h) 50 mg PO DAILY [facility]; Protocol Last Admin: 09/30/25 09:47 Dose: 50 mg Documented By: SALIMA Multivitamins/Vitamin C (Multivitamin Tablet) 1 tab PO DAILY [facility] Last Admin: 09/30/25 09:47 Dose: 1 tab Documented By: SALIMA Patient Own Med ( Ambrisentan [ Letairis] 5 Mg Tablet) 5 mg PO BEDTIME [facility] On Hold: 09/29/25 12:53 Last Admin: 09/28/25 21:22 Dose: 5 mg Documented By: JOLEEN Patient Own Med ( Treprostinil Diolamine [Orenitram ] 1 Mg Tablet Extended Release) 3 mg PO TID [facility] On Hold: 09/29/25 12:53 Last Admin: 09/29/25 09:36 Dose: 3 mg Documented By: ANDREW Ondansetron HCl (Ondansetron Hcl 4 Mg/2 Ml Vial) 4 mg IVPUSH Q8H PRN PRN Reason: Nausea and Vomiting Last Admin: 09/27/25 22:43 Dose: 4 mg Documented By: ANDERW Oxycodone HCl (Oxycodone Hcl Immed Release 5 Mg Tablet) 5 mg PO QID PRN PRN Reason: Pain, Moderate(Pain Scale 4-6) Last Admin: 09/30/25 12:54 Dose: 5 mg Documented By: ELIAZAR Pharmacy Consult (Consult Rx Vancomycin Dosing) 1 each MISCELLANE DAILY PRN PRN Reason: Consult order Quetiapine Fumarate (Quetiapine Fumarate 25 Mg Tablet) 25 mg PO BEDTIME [facility] Last Admin: 09/29/25 19:55 Dose: 25 mg Documented By: JULIO Sildenafil Citrate (Sildenafil Citrate 20 Mg Tablet) 20 mg PO TID [facility] On Hold: 09/29/25 12:53 Last Admin: 09/29/25 09:36 Dose: 20 mg Documented By: ANDREW Sodium Chloride (0.9 % Sodium Chloride Flush 3 Ml Syringe) 3 ml IVFLUSH QSHIFT [facility] Last Admin: 09/30/25 09:45 Dose: 3 ml Documented By: SALIMA Labs 09/30/25 06:15 09/30/25 06:15 Labs: Laboratory Results - last 24 hr 09/29/25 09/29/25 09/30/25 13:17 15:31 06:15 MCV 93.9 D MCH 29.9 MCHC 31.8 RDW 20.7 H Plt Count 109 L MPV 9.2 L Absolute Nucleated RBC 0.000 Nucleated RBC % (auto) 0.0 Anion Gap 12 Estim Creat Clear Calc 30.2 Estimated GFR 42 Random Glucose 81 Calcium 7.9 L Magnesium 1.5 L NT-Pro-B Natriuret Pep 9664.1 H Vitamin B12 1668 H Folate 12.4 Random Vancomycin 21.7 H 20.9 H Blood Type B Positive Antibody Screen NEGATIVE Crossmatch See Detail Assessment and Plan (1) Sacral decubitus ulcer: Status: Acute (2) Decompensated heart failure: Status: Acute Plan d6, 80yo F with Sjogren syndrome, scleroderma, CREST, chronic diastolic CHF, pulmonary hypertension, CKD 3, myelodysplastic syndrome, intestinal AV malformations, and avascular necrosis of the hip s/p recent KAREN at [facility] [place], recent admission to [facility] for aspiration PNA/ERIC/achalasia with apersitalsis/candidal esophagitis presented with worsening edema and failure to thrive acute-chronic HFpEF, R-sided and diastolic pHTN - stopped IV furosemide drip; resume metoprolol now that BP has improved - held sildenafil + ambrisentan + treprostinil due to hypotension; resume as BP allows acute hypoxic respiratory failure - suspect sequelae of aspiration pneumonia from recent admission; on broad-spectrum antibiotics to cover sacral osteomyelitis coccygeal ulcer with exposed bone/sacral osteomyelitis - Gen Surg consulted : There is a thin layer of slough that will likely improve with current wound care regimen of medihoney and silver alginate. Alternatively can attempt wet to dry packing to help debride. Bone is palpable but not currently visible. Continue good daily wound care, offloading, nutritional support. Will continue to follow for possible surgical debridement . Yesterday's update: Decubitus ulcer overall improved with less slough although still some present at wound base. Continue with wet to dry saline soaked packing followed by allevyn foam pad, remainder of wound care recommendations and supportive care. No surgical debridement currently indicated. To place VAC tomorrow. - 09/27-09/30 vancomycin, 09/30- daptomycin, 09/27- Zosyn, CT pelvis: Exposed sacral bone in the right inferior sacrum highly suggests osteomyelitis although no gross radiographic/CT changes are seen. There is a large sacral decubitus ulcer. ID consulted; plan 6 wk broad-spectrum coverage CKD3 - monitor SCr hypoK - repleted hypoMg - replete, recheck level in AM candidal esophagitis - reviewed [facility] records; plan was micafungin to continue til 10/05; will substitute caspofungin while here. There was concern for IE as TTE suggested aortic vegetation vs. calcification and pt had splenic infarts on CT abd, but blood cultures and SERGIO were negative aperistalsis of esophagus - MEAT SEA[employer] ASSOCIATE consulted: NDD3 solids, thin liquids MDS - monitor blood counts. transfused 2u pRBCs 09/29 for Hb 7.2 with hypotension, Hb now 9.3 VTE ppx: UFH dispo: TBD In my clinical judgment, the patient requires continued inpatient hospitalization for the following reasons: IV ABX, IV diuresis, IV antifungal, wound VAC Total time managing care of this patient today: 50 minutes. Quality Stroke Does the patient have a stroke diagnosis?: No VTE Prior VTE?: No VTE Risk Level:: Medical - moderate - high VTE Device Contraindication: Treatment Not Indicated VTE Drug Contraindication: N/A - Med Ordered
[2025-10-01] MEDS: oxyCODONE HCl Immed Release 5 MG TABLET PO ×2 (03:20→08:01)
[2025-10-01 03:28] VITALS: BP 127/56; PULSE 72; RESP 18; TEMP 36.4; O2SAT 94
[2025-10-01 07:09] LABS: Hematocrit 32.6 % (37.0-47.0); Hemoglobin 10.3 g/dl (12.0-16.0); Mean Corpuscular HGB Conc 31.6 g/dl (31.0-35.0); Mean Corpuscular Hemoglobin 30.4 pg (27.0-33.0); Mean Corpuscular Volume 96.2 fL (80.0-98.0); NRBC Abs Auto 0.000 X10*3/uL (0.0-0.012); NRBC Pct Auto 0.0 /100WBC (0.0-0.2); Platelet Count 104 X10*3/uL (160-400); Red Blood Count 3.39 X10*6/uL (4.20-5.50); White Blood Count 6.4 X10*3/uL (4.8-10.8)
[2025-10-01 07:33] LABS: Anion Gap 11 (12-20); Blood Urea Nitrogen 29 mg/dL (9-16); Calcium 7.9 mg/dL (8.4-10.2); Carbon Dioxide 21 mmol/L (22-29); Chloride 115 mmol/L (96-108); Creatinine Clr Calc Pharmacy 37.1; Estimated Glomerular Filt Rate 53; Magnesium 1.7 mg/dL (1.6-2.6); Potassium 2.9 mmol/L (3.3-5.1); Sodium 144 mmol/L (135-145)
[2025-10-01 08:00] VITALS: BP 157/72; PULSE 81; RESP 20; TEMP 36.4; O2SAT 95
--- NOTE | 2025-10-01 08:54 | P.PNGS_ITS ---
Subjective Subjective Date of Service: 10/01/25 Interval history: Continues to complain of pain at her coccyx. Physical Exam 2 Vital Signs: Vital Signs: Last Vital Signs Temp 97.5 F 10/01/25 08:00 Pulse 81 10/01/25 08:00 Resp 20 10/01/25 08:00 BP 157/72 H 10/01/25 08:00 Pulse Ox 95 10/01/25 08:00 O2 Del Method Nasal Cannula 10/01/25 08:00 O2 Flow Rate 3 10/01/25 08:00 BMI result Body Mass Index 23.2 Const: General: comfortable, no acute distress and alert O rientation/consciousness: patient oriented x3 Resp: Other: some increased work of breathing Skin: Other: decubitus ulcer- still with some slough in areas, ligament present at superior aspect but overall wound bed does appear improved from yesterday, some areas of good beefy red granulation tissues, surrounding area improved in person but appears very erythematous in photo Neuro: General: patient oriented x3 Objective Data Active Medications Acetaminophen (Acetaminophen 325 Mg Tablet) 650 mg PO Q6H PRN PRN Reason: Pain, Mild 1-3,fever,headache Last Admin: 09/28/25 21:30 Dose: 650 mg Documented By: JOLEEN Calcium Carbonate (Calcium Carbonate 750 Mg Tab.Chew) 750 mg PO Q4H PRN PRN Reason: Heartburn Dorzolamide HCl (Dorzolamide Hcl 2 % Ophth Myranda 10 Ml Drpbtl) 1 drop EYE-BOTH BID [facility] Last Admin: 09/30/25 20:09 Dose: 1 drop Documented By: JULIO Empagliflozin (Empagliflozin 10 Mg Tablet) 10 mg PO DAILY [facility] On Hold: 09/29/25 12:53 Last Admin: 09/29/25 09:36 Dose: 10 mg Documented By: ANDREW Gabapentin (Gabapentin 100 Mg Capsule) 200 mg PO BEDTIME [facility] Last Admin: 09/30/25 20:05 Dose: 200 mg Documented By: JULIO Heparin Sodium (Porcine) (Heparin Sodium,Porcine 5,000 Unit/Ml Vial) 5,000 unit SUBCUT Q12H [facility] Last Admin: 10/01/25 06:05 Dose: Not Given Documented By: JULIO Non-Admin Reason: Patient Refused Caspofungin 50 mg/ Sodium (Chloride) 250 mls @ 250 mls/hr IV Q24H [facility] Last Infusion: 09/30/25 14:12 Dose: Infused Documented By: ELIAZAR Piperacillin Sod/Tazobactam (Sod 3.375 gm/ Sodium Chloride) 50 mls @ 100 mls/hr IV Q6H [facility] Last Infusion: 10/01/25 02:29 Dose: Infused Documented By: JULIO Daptomycin 500 mg/ Sodium (Chloride) 60 mls @ 100.84 mls/hr IV Q24H [facility] Last Infusion: 09/30/25 18:52 Dose: Infused Documented By: SALIMA Lidocaine (Lidocaine 4 % Patch Adh..Patch) 1 patch TRANSDERMA DAILY [facility]; Protocol Last Admin: 09/30/25 09:48 Dose: 1 patch Documented By: SALIMA Lidocaine (Lidocaine 4 % Patch Adh..Patch) 1 patch TRANSDERMA DAILY [facility]; Protocol Last Admin: 09/30/25 09:49 Dose: 1 patch Documented By: SALIMA Lidocaine (Lidocaine 4 % Patch Adh..Patch) 2 patch TRANSDERMA DAILY [facility]; Protocol Last Admin: 09/30/25 09:49 Dose: 2 patch Documented By: SALIMA Magnesium Hydroxide (Milk Of Magnesia 30 Ml Oral.Susp) 30 ml PO DAILY PRN PRN Reason: Constipation Melatonin (Melatonin 3 Mg Tablet) 6 mg PO BEDTIME PRN PRN Reason: Insomnia Metoprolol Succinate (Metoprolol Succinate Er 50 Mg Tab.Er.24h) 50 mg PO DAILY [facility]; Protocol Last Admin: 09/30/25 09:47 Dose: 50 mg Documented By: SALIMA Multivitamins/Vitamin C (Multivitamin Tablet) 1 tab PO DAILY [facility] Last Admin: 09/30/25 09:47 Dose: 1 tab Documented By: SALIMA Patient Own Med ( Ambrisentan [ Letairis] 5 Mg Tablet) 5 mg PO BEDTIME [facility] On Hold: 09/29/25 12:53 Last Admin: 09/28/25 21:22 Dose: 5 mg Documented By: JOLEEN Patient Own Med ( Treprostinil Diolamine [Orenitram ] 1 Mg Tablet Extended Release) 3 mg PO TID [facility] On Hold: 09/29/25 12:53 Last Admin: 09/29/25 09:36 Dose: 3 mg Documented By: ANDREW Ondansetron HCl (Ondansetron Hcl 4 Mg/2 Ml Vial) 4 mg IVPUSH Q8H PRN PRN Reason: Nausea and Vomiting Last Admin: 09/27/25 22:43 Dose: 4 mg Documented By: ANDREW Oxycodone HCl (Oxycodone Hcl Immed Release 5 Mg Tablet) 5 mg PO QID PRN PRN Reason: Pain, Moderate(Pain Scale 4-6) Last Admin: 10/01/25 08:01 Dose: 5 mg Documented By: SALIMA Quetiapine Fumarate (Quetiapine Fumarate 25 Mg Tablet) 25 mg PO BEDTIME [facility] Last Admin: 09/30/25 20:05 Dose: 25 mg Documented By: JULIO Sildenafil Citrate (Sildenafil Citrate 20 Mg Tablet) 20 mg PO TID [facility] On Hold: 09/29/25 12:53 Last Admin: 09/29/25 09:36 Dose: 20 mg Documented By: ANDREW Sodium Chloride (0.9 % Sodium Chloride Flush 3 Ml Syringe) 3 ml IVFLUSH QSHIFT [facility] Last Admin: 09/30/25 20:06 Dose: 3 ml Documented By: JULIO Sodium Hypochlorite (Sodium Hypochlorite 0.125% 473 Ml Solution) 1 appl TOPICAL BID [facility] Last Admin: 09/30/25 22:50 Dose: 1 appl Documented By: JULIO Labs 10/01/25 06:31 10/01/25 06:31 Labs: Laboratory Results - last 24 hr 10/01/25 06:31 MCV 96.2 MCH 30.4 MCHC 31.6 RDW 21.1 H Plt Count 104 L MPV 9.5 Absolute Nucleated RBC 0.000 Nucleated RBC % (auto) 0.0 Anion Gap 11 L Estim Creat Clear Calc 37.1 Estimated GFR 53 Random Glucose 84 Calcium 7.9 L Magnesium 1.7 Total Creatine Kinase 14 L Microbiology Microbiology Results: Microbiology 09/25/25 16:55 Blood Culture - Final Blood - Venous No growth after 5 days. 09/25/25 16:57 Blood Culture - Final Blood - Venous No growth after 5 days. Procedures Date of Service Date of Service: 10/01/25 Progress Note: A&P Assessment and plan (1) Sacral decubitus ulcer: Status: Acute Plan Wound bed appears improved with change to dakins and BID dressing change. Continue BID dressing changes with dakins soaked packing, allevyn foam pad. Wound vac placement held today, hopefully continues to improve over the weekend and may be ready for placement on Saturday. Alternatively, if she is ready for dc in the meantime she can have this done on an outpatient basis - depending on dispo plan either at her STR or follow up with the wound care center. Time Spent With Patient Time: Total time managing care of this patient today ____ minutes. Quality Stroke Does the patient have a stroke diagnosis?: No VTE Prior VTE?: No VTE Risk Level:: Medical - moderate - high VTE Device Contraindication: Treatment Not Indicated VTE Drug Contraindication: N/A - Med Ordered
[2025-10-01] MEDS: Dorzolamide HCl 2 % Ophth Sol 10 ML DRPBTL 1 DROP EYE-BOTH ×2 (09:19→20:37)
[2025-10-01] MEDS: Metoprolol Succinate ER 50 MG TAB.ER.24H PO (09:19)
[2025-10-01] MEDS: Lidocaine 4 % Patch ADH..PATCH 1 PATCH TRANSDERMA ×2 (09:19→09:20)
[2025-10-01] MEDS: Lidocaine 4 % Patch ADH..PATCH 2 PATCH TRANSDERMA (09:21)
[2025-10-01] MEDS: 0.9 % Sodium Chloride Flush 3 ML SYRINGE IVFLUSH ×2 (10:55→18:31)
[2025-10-01] MEDS: Potassium Chloride ER 20 MEQ TAB.ER.PRT 40 MEQ PO (10:55)
[2025-10-01] MEDS: Potassium Chloride/H20 10 MEQ/100 ML PIGGYBACK 100 MEQ IV ×4 (10:56→18:13)
--- NOTE | 2025-10-01 11:11 | MHC.CLN ---
F/U PO INTAKE VARIABLE RANGING FROM 0-75% DIET RX: 2GM NA CHOPPED PT RECEIVING ENSURE TID TO PROMOTE WOUND HEALING SUPPLEMENT PROVIDES 1050KCALS, 60G PROTEIN CONTINUE TO MONITOR PO INTAKE AND ENCOURAGE SUPPLEMENTS
[2025-10-01 11:48] VITALS: BP 151/71; PULSE 80; RESP 20; TEMP 36.4; O2SAT 93
--- NOTE | 2025-10-01 12:48 | P.PNIM_ITS ---
Subjective Subjective Date of Service: 10/01/25 Interval History: c/o coccygeal pain though wound improving no fever K low Review of Systems Review of Systems: Yes all other systems are reviewed and are negative Physical Exam 2 Vital Signs: Vital Signs: Last Vital Signs Temp 97.5 F 10/01/25 11:48 Pulse 80 10/01/25 11:48 Resp 20 10/01/25 11:48 BP 151/71 H 10/01/25 11:48 Pulse Ox 93 10/01/25 11:48 O2 Del Method Nasal Cannula 10/01/25 11:48 O2 Flow Rate 3 10/01/25 11:48 BMI result Body Mass Index 23.2 Gen: weak, chronically ill HEENT: sclera anicteric, moist mucus membranes Neck: supple, no JVD, L subclavian port Lungs: diminished Heart: regular, no murmurs Abd: soft, non-tender, non-distended, LLQ ostomy Ext: no edema Skin: warm/well-perfused, coccygeal wound with granulation tissue [reference made to Gen Surg photo] Neuro: alert and oriented x3, no focal findings Psych: appropriate affect Objective Data Active Medications Acetaminophen (Acetaminophen 325 Mg Tablet) 650 mg PO Q6H PRN PRN Reason: Pain, Mild 1-3,fever,headache Last Admin: 09/28/25 21:30 Dose: 650 mg Documented By: JOLEEN Calcium Carbonate (Calcium Carbonate 750 Mg Tab.Chew) 750 mg PO Q4H PRN PRN Reason: Heartburn Dorzolamide HCl (Dorzolamide Hcl 2 % Ophth Myranda 10 Ml Drpbtl) 1 drop EYE-BOTH BID [facility] Last Admin: 10/01/25 09:19 Dose: 1 drop Documented By: SALIMA Empagliflozin (Empagliflozin 10 Mg Tablet) 10 mg PO DAILY [facility] On Hold: 09/29/25 12:53 Last Admin: 09/29/25 09:36 Dose: 10 mg Documented By: ANDREW Gabapentin (Gabapentin 100 Mg Capsule) 200 mg PO BEDTIME [facility] Last Admin: 09/30/25 20:05 Dose: 200 mg Documented By: JULIO Heparin Sodium (Porcine) (Heparin Sodium,Porcine 5,000 Unit/Ml Vial) 5,000 unit SUBCUT Q12H [facility] Last Admin: 10/01/25 06:05 Dose: Not Given Documented By: JULIO Non-Admin Reason: Patient Refused Caspofungin 50 mg/ Sodium (Chloride) 250 mls @ 250 mls/hr IV Q24H [facility] Last Admin: 10/01/25 12:05 Dose: 250 mls/hr Documented By: SALIMA Piperacillin Sod/Tazobactam (Sod 3.375 gm/ Sodium Chloride) 50 mls @ 100 mls/hr IV Q6H [facility] Last Infusion: 10/01/25 09:50 Dose: Infused Documented By: SALIMA Daptomycin 500 mg/ Sodium (Chloride) 60 mls @ 100.84 mls/hr IV Q24H [facility] Last Infusion: 09/30/25 18:52 Dose: Infused Documented By: SALIMA Potassium Chloride (Potassium Chloride/H20) 10 meq in 100 mls @ 100 mls/hr IV Q1H [facility] Stop: 10/01/25 14:29 Last Admin: 10/01/25 12:01 Dose: 100 mls/hr Documented By: SALIMA Lidocaine (Lidocaine 4 % Patch Adh..Patch) 1 patch TRANSDERMA DAILY [facility]; Protocol Last Admin: 10/01/25 09:19 Dose: 1 patch Documented By: SALIMA Lidocaine (Lidocaine 4 % Patch Adh..Patch) 1 patch TRANSDERMA DAILY [facility]; Protocol Last Admin: 10/01/25 09:20 Dose: 1 patch Documented By: SALIMA Lidocaine (Lidocaine 4 % Patch Adh..Patch) 2 patch TRANSDERMA DAILY [facility]; Protocol Last Admin: 10/01/25 09:21 Dose: 2 patch Documented By: SALIMA Magnesium Hydroxide (Milk Of Magnesia 30 Ml Oral.Susp) 30 ml PO DAILY PRN PRN Reason: Constipation Melatonin (Melatonin 3 Mg Tablet) 6 mg PO BEDTIME PRN PRN Reason: Insomnia Metoprolol Succinate (Metoprolol Succinate Er 50 Mg Tab.Er.24h) 50 mg PO DAILY [facility]; Protocol Last Admin: 10/01/25 09:19 Dose: 50 mg Documented By: SALIMA Multivitamins/Vitamin C (Multivitamin Tablet) 1 tab PO DAILY [facility] Last Admin: 10/01/25 09:19 Dose: 1 tab Documented By: SALIMA Patient Own Med ( Ambrisentan [ Letairis] 5 Mg Tablet) 5 mg PO BEDTIME [facility] On Hold: 09/29/25 12:53 Last Admin: 09/28/25 21:22 Dose: 5 mg Documented By: JOLEEN Patient Own Med ( Treprostinil Diolamine [Orenitram ] 1 Mg Tablet Extended Release) 3 mg PO TID [facility] On Hold: 09/29/25 12:53 Last Admin: 09/29/25 09:36 Dose: 3 mg Documented By: ANDREW Ondansetron HCl (Ondansetron Hcl 4 Mg/2 Ml Vial) 4 mg IVPUSH Q8H PRN PRN Reason: Nausea and Vomiting Last Admin: 09/27/25 22:43 Dose: 4 mg Documented By: ANDREW Quetiapine Fumarate (Quetiapine Fumarate 25 Mg Tablet) 25 mg PO BEDTIME [facility] Last Admin: 09/30/25 20:05 Dose: 25 mg Documented By: JULIO Sildenafil Citrate (Sildenafil Citrate 20 Mg Tablet) 20 mg PO TID [facility] On Hold: 09/29/25 12:53 Last Admin: 09/29/25 09:36 Dose: 20 mg Documented By: ANDREW Sodium Chloride (0.9 % Sodium Chloride Flush 3 Ml Syringe) 3 ml IVFLUSH QSHIFT [facility] Last Admin: 10/01/25 10:55 Dose: 3 ml Documented By: SALIMA Sodium Hypochlorite (Sodium Hypochlorite 0.125% 473 Ml Solution) 1 appl TOPICAL BID [facility] Last Admin: 10/01/25 10:40 Dose: 1 appl Documented By: SALIMA Labs 10/01/25 06:31 10/01/25 06:31 Labs: Laboratory Results - last 24 hr 10/01/25 06:31 MCV 96.2 MCH 30.4 MCHC 31.6 RDW 21.1 H Plt Count 104 L MPV 9.5 Absolute Nucleated RBC 0.000 Nucleated RBC % (auto) 0.0 Anion Gap 11 L Estim Creat Clear Calc 37.1 Estimated GFR 53 Random Glucose 84 Calcium 7.9 L Magnesium 1.7 Total Creatine Kinase 14 L Microbiology Microbiology Results: Microbiology 09/25/25 16:55 Blood Culture - Final Blood - Venous No growth after 5 days. 09/25/25 16:57 Blood Culture - Final Blood - Venous No growth after 5 days. Assessment and Plan (1) Sacral decubitus ulcer: Status: Acute (2) Decompensated heart failure: Status: Acute Plan d7, 80yo F with Sjogren syndrome, scleroderma, CREST, chronic diastolic CHF, pulmonary hypertension, CKD 3, myelodysplastic syndrome, intestinal AV malformations, and avascular necrosis of the hip s/p recent KAREN at [facility] [place], recent admission to [facility] for aspiration PNA/ERIC/achalasia with apersitalsis/candidal esophagitis presented with worsening edema and failure to thrive acute-chronic HFpEF, R-sided and diastolic pulmonary HTN - stopped IV furosemide drip; resumed metoprolol now that BP has improved - held sildenafil + ambrisentan + treprostinil due to hypotension; resume these agents today acute hypoxic respiratory failure - suspect chest imaging findings represent sequelae of aspiration pneumonia from recent admission; on broad-spectrum antibiotics to cover sacral osteomyelitis coccygeal ulcer with exposed bone/sacral osteomyelitis - CT pelvis done 09/28: Exposed sacral bone in the right inferior sacrum highly suggests osteomyelitis although no gross radiographic/CT changes are seen. There is a large sacral decubitus ulcer. - Gen Surg consulted and following daily. Recommends BID dressing chnages with Dakins-soaked packing, Allevyn foam pad. Plan wound VAC 10/04. - ID consulted. Was on vancomycin 09/27-09/30 then changed to daptomycin 09/30. Has been on Zosyn 09/27- and can be changed to ertapenem upon discharge. Total 6 wk of IV ABX via port, end date 11/08/25 hypoK - replete IV + PO, recheck in AM candidal esophagitis - reviewed [facility] records; plan was micafungin to continue til 10/05; will substitute caspofungin while here. There was concern for IE as TTE suggested aortic vegetation vs. calcification and pt had splenic infarts on CT abd, but blood cultures and SERGIO were negative aperistalsis of esophagus: COMPUTER NETWORK SPECIALIST consulted: NDD3 solids, thin liquids MDS: monitor blood counts. transfused 2u pRBCs 09/29 for Hb 7.2 with hypotension, Hb now 10.3 hypoMg: repleted CKD3: monitor SCr VTE ppx: UFH dispo: STR In my clinical judgment, the patient requires continued inpatient hospitalization for the following reasons: IV ABX, IV antifungal, wound VAC Total time managing care of this patient today: 40 minutes. Quality Stroke Does the patient have a stroke diagnosis?: No VTE Prior VTE?: No VTE Risk Level:: Medical - moderate - high VTE Device Contraindication: Treatment Not Indicated VTE Drug Contraindication: N/A - Med Ordered
--- NOTE | 2025-10-01 14:58 | P.PNID_ITS ---
Subjective Subjective Date of Service: 10/01/25 Critical Care Time (minutes): 15 Comment: she has no complaints,no changes Objective Data Labs 10/01/25 06:31 10/01/25 06:31 Labs: Laboratory Results - last 24 hr 10/01/25 06:31 WBC 6.4 RBC 3.39 L Hgb 10.3 L Hct 32.6 L MCV 96.2 MCH 30.4 MCHC 31.6 RDW 21.1 H Plt Count 104 L MPV 9.5 Absolute Nucleated RBC 0.000 Nucleated RBC % (auto) 0.0 Sodium 144 Potassium 2.9 L* Chloride 115 H Carbon Dioxide 21 L Anion Gap 11 L BUN 29 H Creatinine 1.00 Estim Creat Clear Calc 37.1 Estimated GFR 53 Random Glucose 84 Calcium 7.9 L Magnesium 1.7 Total Creatine Kinase 14 L Microbiology Microbiology Results: Microbiology 09/25/25 16:55 Blood - Venous Blood Culture - Final No growth after 5 days. 09/25/25 16:57 Blood - Venous Blood Culture - Final No growth after 5 days. 09/25/25 16:43 Sacrum Gram Stain - Final 09/25/25 16:43 Sacrum Routine Culture - Final Pseudomonas aeruginosa Enterococcus faecalis Physical Exam 2 Vital Signs: Vital Signs: Last Vital Signs Temp 97.5 F 10/01/25 11:48 Pulse 80 10/01/25 11:48 Resp 20 10/01/25 11:48 BP 151/71 H 10/01/25 11:48 Pulse Ox 93 10/01/25 11:48 O2 Del Method Nasal Cannula 10/01/25 11:48 O2 Flow Rate 3 10/01/25 11:48 BMI result Body Mass Index 23.2 Const: General: cooperative HEENT: Head: Yes normal to inspection Face and sinus: Yes normal facial exam Mouth: Normal oral and palatal mucosa present Teeth and gingiva: d entition normal Eyes: General: appearance normal, both eyes and all related structures P upils: Equal, round and reactive pupils present Resp: Effort & Inspection: normal respiratory effort Cardio: Rate: regular rate Rhythm: regular rhythm GI: Palpation (GI): Soft to palpation and nontender Back/Spine/Pelvis: Other: sacral wound Skin: General skin exam: no rashes or lesions noted Neuro: General: moves all extremities Cranial nerves: Yes Equal, round and reactive pupils present Extrem: General: Yes normal to inspection Psych: Appearance: grossly normal Assessment and Plan Assessment and plan (1) Fungal esophagitis: Problem details: Finish Caspofungin 10/05 Status: Acute (2) Sacral decubitus ulcer: Problem details: OM,pseudomonas and enterococcus faecalis, end date 11/08/2025 Status: Acute Time Spent With Patient Time: Total time managing care of this patient today ____ minutes.
--- NOTE | 2025-10-01 15:02 | MHC.CM.PN ---
EMR REVIEWED AND PER MD ROUNDS, PATIENT IS NOT MEDICALLY CLEARED FOR DISCHARGE DUE TO MANAGEMENT OF SACRAL DECUBITUS ULCER PENDING SURGICAL WOUND VAC PLACEMENT ON THURSDAY 10/04, AND MANAGEMENT OF HF, PATIENT ALSO NEEDS 6 WEEKS IV ANTIBIOTICS.
[2025-10-01 15:53] VITALS: BP 105/63; PULSE 97; RESP 18; TEMP 36.6; O2SAT 96
[2025-10-01 19:17] VITALS: BP 162/90; PULSE 97; RESP 20; TEMP 36.3; O2SAT 94
[2025-10-01 19:46] LABS: Troponin-I High Sensitivity 48.8 ng/L (<3.5-17.0)
[2025-10-01 21:49] LABS: Troponin-I High Sensitivity 44.0 ng/L (<3.5-17.0)
[2025-10-01 23:57] VITALS: BP 135/70; PULSE 115; RESP 26; TEMP 37; O2SAT 88
[2025-10-02 02:57] VITALS: BP 125/60; PULSE 111; RESP 18; TEMP 37; O2SAT 92
[2025-10-02 07:11] LABS: Hematocrit 35.9 % (37.0-47.0); Hemoglobin 11.2 g/dl (12.0-16.0); Mean Corpuscular HGB Conc 31.2 g/dl (31.0-35.0); Mean Corpuscular Hemoglobin 29.9 pg (27.0-33.0); Mean Corpuscular Volume 96.0 fL (80.0-98.0); NRBC Abs Auto 0.000 X10*3/uL (0.0-0.012); NRBC Pct Auto 0.0 /100WBC (0.0-0.2); Platelet Count 173 X10*3/uL (160-400); Red Blood Count 3.74 X10*6/uL (4.20-5.50); White Blood Count 16.4 X10*3/uL (4.8-10.8)
[2025-10-02 07:15] LABS: Blood Urea Nitrogen 35 mg/dL (9-16); Calcium 8.2 mg/dL (8.4-10.2); Creatinine Clr Calc Pharmacy 37.1; Estimated Glomerular Filt Rate 53; Magnesium 1.9 mg/dL (1.6-2.6)
[2025-10-02 07:28] VITALS: BP 127/60; PULSE 112; RESP 20; TEMP 36.9; O2SAT 93
[2025-10-02 07:29] LABS: Anion Gap 10 (12-20); Carbon Dioxide 22 mmol/L (22-29); Chloride 116 mmol/L (96-108); Potassium 4.1 mmol/L (3.3-5.1); Sodium 144 mmol/L (135-145)
[2025-10-02 08:08] VITALS: BP 127/60; PULSE 112
[2025-10-02] MEDS: Metoprolol Succinate ER 50 MG TAB.ER.24H PO (08:08)
[2025-10-02] MEDS: 0.9 % Sodium Chloride Flush 3 ML SYRINGE IVFLUSH ×2 (08:08→16:05)
[2025-10-02] MEDS: Dorzolamide HCl 2 % Ophth Sol 10 ML DRPBTL 1 DROP EYE-BOTH ×2 (08:10→20:39)
[2025-10-02 11:07] VITALS: BP 126/59; PULSE 122; RESP 20; TEMP 36.6; O2SAT 92
[2025-10-02 15:24] VITALS: BP 120/64; PULSE 115; RESP 20; TEMP 36.3; O2SAT 95
--- NOTE | 2025-10-02 16:43 | P.PNIM_ITS ---
Subjective Subjective Date of Service: 10/02/25 Interval History: Continues to be nauseous with vomiting despite therapies. Review of Systems Denies chest pain Denies shortness of breath Admits nausea and vomiting Denies fever chills Physical Exam 2 Vital Signs: Vital Signs: Last Vital Signs Temp 97.3 F 10/02/25 15:24 Pulse 115 H 10/02/25 15:24 Resp 20 10/02/25 15:24 BP 120/64 10/02/25 15:24 Pulse Ox 95 10/02/25 15:24 O2 Del Method Nasal Cannula 10/02/25 15:24 O2 Flow Rate 4 10/02/25 15:24 BMI result Body Mass Index 23.2 Const: Other: Awake alert ill-appearing Resp: Other: Clear to auscultation bilaterally no rales rhonchi or wheezes Cardio: Other: No S4; positive S1-S2; no S3 murmurs rubs or gallops GI: Other: Soft nontender nondistended normoactive bowel sounds Extrem: Other: No edema bilaterally Objective Data Active Medications Acetaminophen (Acetaminophen 325 Mg Tablet) 650 mg PO Q6H PRN PRN Reason: Pain, Mild 1-3,fever,headache Last Admin: 09/28/25 21:30 Dose: 650 mg Documented By: JOLEEN Calcium Carbonate (Calcium Carbonate 750 Mg Tab.Chew) 750 mg PO Q4H PRN PRN Reason: Heartburn Dorzolamide HCl (Dorzolamide Hcl 2 % Ophth Myranda 10 Ml Drpbtl) 1 drop EYE-BOTH BID [facility] Last Admin: 10/02/25 08:10 Dose: 1 drop Documented By: MAXIMO Gabapentin (Gabapentin 100 Mg Capsule) 200 mg PO BEDTIME [facility] Last Admin: 10/01/25 20:33 Dose: 200 mg Documented By: JOSE Heparin Sodium (Porcine) (Heparin Sodium,Porcine 5,000 Unit/Ml Vial) 5,000 unit SUBCUT Q12H [facility] Last Admin: 10/02/25 16:09 Dose: Not Given Documented By: MAXIMO Non-Admin Reason: patient having coffee ground emesis Caspofungin 50 mg/ Sodium (Chloride) 250 mls @ 250 mls/hr IV Q24H [facility] Last Infusion: 10/02/25 12:23 Dose: Infused Documented By: MAXIMO Piperacillin Sod/Tazobactam (Sod 3.375 gm/ Sodium Chloride) 50 mls @ 100 mls/hr IV Q6H [facility] Last Admin: 10/02/25 16:04 Dose: 100 mls/hr Documented By: MAXIMO Daptomycin 500 mg/ Sodium (Chloride) 60 mls @ 100.84 mls/hr IV Q24H [facility] Last Admin: 10/02/25 16:05 Dose: 100.84 mls/hr Documented By: MAXIMO Lactated Ringer's (Lr) 1,000 mls @ 100 mls/hr IVCONT .Q10H [facility] Lidocaine (Lidocaine 4 % Patch Adh..Patch) 1 patch TRANSDERMA DAILY [facility]; Protocol Last Admin: 10/02/25 09:00 Dose: Not Given Documented By: MAXIMO Non-Admin Reason: Patient Refused Lidocaine (Lidocaine 4 % Patch Adh..Patch) 1 patch TRANSDERMA DAILY [facility]; Protocol Last Admin: 10/02/25 09:00 Dose: Not Given Documented By: MAXIMO Non-Admin Reason: Patient Refused Lidocaine (Lidocaine 4 % Patch Adh..Patch) 2 patch TRANSDERMA DAILY [facility]; Protocol Last Admin: 10/02/25 09:00 Dose: Not Given Documented By: MAXIMO Non-Admin Reason: Patient Refused Magnesium Hydroxide (Milk Of Magnesia 30 Ml Oral.Susp) 30 ml PO DAILY PRN PRN Reason: Constipation Melatonin (Melatonin 3 Mg Tablet) 6 mg PO BEDTIME PRN PRN Reason: Insomnia Metoclopramide HCl (Metoclopramide Hcl 10 Mg/2 Ml Vial) 5 mg IVPUSH Q6H PRN PRN Reason: Nausea and Vomiting Last Admin: 10/02/25 11:24 Dose: 5 mg Documented By: MAXIMO Comments: Metoprolol Succinate (Metoprolol Succinate Er 50 Mg Tab.Er.24h) 50 mg PO DAILY [facility]; Protocol Last Admin: 10/02/25 08:08 Dose: 50 mg Documented By: MAXIMO Multivitamins/Vitamin C (Multivitamin Tablet) 1 tab PO DAILY [facility] Last Admin: 10/02/25 16:16 Dose: Not Given Documented By: MAXIMO Non-Admin Reason: Patient Refused Patient Own Med ( Ambrisentan [ Letairis] 5 Mg Tablet) 5 mg PO BEDTIME [facility] Last Admin: 10/01/25 20:33 Dose: 5 mg Documented By: JOSE Patient Own Med ( Treprostinil Diolamine [Orenitram ] 1 Mg Tablet Extended Release) 3 mg PO TID [facility] Last Admin: 10/02/25 16:04 Dose: 3 mg Documented By: MAXIMO Ondansetron HCl (Ondansetron Hcl 4 Mg/2 Ml Vial) 4 mg IVPUSH Q4H PRN PRN Reason: Nausea and Vomiting Oxycodone HCl (Oxycodone Hcl Immed Release 5 Mg Tablet) 5 mg PO Q4H PRN PRN Reason: Pain, Severe (Pain Scale 7-10) Quetiapine Fumarate (Quetiapine Fumarate 25 Mg Tablet) 25 mg PO BEDTIME [facility] Last Admin: 10/01/25 20:33 Dose: 25 mg Documented By: JOSE Sildenafil Citrate (Sildenafil Citrate 20 Mg Tablet) 20 mg PO TID [facility] Last Admin: 10/02/25 16:04 Dose: 20 mg Documented By: MAXIMO Sodium Chloride (0.9 % Sodium Chloride Flush 3 Ml Syringe) 3 ml IVFLUSH QSHIFT [facility] Last Admin: 10/02/25 16:05 Dose: 3 ml Documented By: MAXIMO Sodium Hypochlorite (Sodium Hypochlorite 0.125% 473 Ml Solution) 1 appl TOPICAL BID [facility] Last Admin: 10/02/25 08:11 Dose: 1 appl Documented By: MAXIMO Labs 10/02/25 06:21 10/02/25 06:21 Labs: Laboratory Results - last 24 hr 10/01/25 10/01/25 10/02/25 19:05 21:18 06:20 MCV MCH MCHC RDW Plt Count MPV Absolute Nucleated RBC Nucleated RBC % (auto) ESR 20 Anion Gap Estim Creat Clear Calc Estimated GFR Random Glucose Calcium Phosphorus Magnesium Troponin I High Sens 48.8 H D 44.0 H C-Reactive Protein 10/02/25 06:21 MCV 96.0 MCH 29.9 MCHC 31.2 RDW 21.2 H Plt Count 173 D MPV 9.6 Absolute Nucleated RBC 0.000 Nucleated RBC % (auto) 0.0 ESR Anion Gap 10 L Estim Creat Clear Calc 37.1 Estimated GFR 53 Random Glucose 198 H Calcium 8.2 L Phosphorus 2.0 L Magnesium 1.9 Troponin I High Sens C-Reactive Protein 4.32 H Assessment and Plan (1) Decompensated heart failure: Status: Acute (2) Sacral decubitus ulcer: Status: Acute (3) Osteomyelitis: Status: Acute Plan 80yo F with Sjogren syndrome, scleroderma, CREST, chronic diastolic CHF, pulmonary hypertension, CKD 3, myelodysplastic syndrome, intestinal AV malformations, and avascular necrosis of the hip s/p [place] [facility] [place] admission to [facility] for aspiration PNA/ERIC/achalasia with apersitalsis/candidal esophagitis presented with worsening edema and failure to thrive 1Acute/chronic HFpEF(pulmonary HTN) - stopped IV furosemide drip; on metoprolol without issue -sildenafil/ambrisentan/treprostinil .... Thus far tolerant 2.Acute hypoxic respiratory failure(likely secondary to aspiration pneumonia) -Zosyn(6)/Dapto(1) -titrate O2 to maintain sats greater than or equal to 92% 3.Sacral osteomyelitis - CT pelvis done 09/28: Exposed sacral bone in the right inferior sacrum highly suggests osteomyelitis although no gross radiographic/CT changes are seen. There is a large sacral decubitus ulcer. - Gen Surg consulted and following daily. Recommends BID dressing chnages with Dakins-soaked packing, Allevyn foam pad. Plan wound VAC 10/04. - ID consulted. Was on vancomycin 09/27-09/30 then changed to daptomycin 09/30. Has been on Zosyn 09/27- and can be changed to ertapenem upon discharge. Total 6 wk of IV ABX via port, end date 11/08/25 4. CKD/Hypokalemia -repleted -follow renals/divalent 5.Candidal esophagitis - reviewed [facility] records; plan was micafungin to continue til 10/05; will substitute caspofungin while here. There was concern for IE as TTE suggested aortic vegetation -cultures negative 6.Anemia -hemoglobin stay -while CBC in seen a.m. VTE ppx: UFH dispo: STR In my clinical judgment, the patient requires continued inpatient hospitalization for the following reasons: IV ABX, IV antifungal, wound VAC Quality Stroke Does the patient have a stroke diagnosis?: No VTE Prior VTE?: No VTE Risk Level:: Medical - moderate - high VTE Device Contraindication: Treatment Not Indicated VTE Drug Contraindication: N/A - Med Ordered
[2025-10-02] MEDS: Lactated Ringers 1,000 ML 100 ML IVCONT (16:48)
--- NOTE | 2025-10-02 17:11 | PC.NURSE ---
Patient had minimal urine output throughout the day and increased abdominal distension. Upon bladder scanning patient found to be retaining >833cc. Patient encouraged to void with the purewick but unable to void. MD notified and per MD place lerma cath. Lerma cath placed at 1710, patient tolerated well. All other needs met at this time, call white within reach
[2025-10-02 19:37] VITALS: BP 104/46; PULSE 105; RESP 28; TEMP 36.3; O2SAT 94
[2025-10-02 23:39] LABS: Glucose, Whole Blood 83 mg/dL (60-115)
[2025-10-03] VITALS (80 sets, daily range): BP systolic 63–187; BP diastolic 31–76; PULSE 63–125; RESP 16–35; TEMP 31.8–36.6; O2SAT 78–100; BMI 25.8
[2025-10-03 00:20] LABS: Imm Gran Abs Auto 0.24 X10*3/uL (0.00-0.03); Imm Gran Pct Auto 1.4 % (0.0-0.4); Lymphocytes Absolute Auto 0.5 X10*3/uL (1.2-4.9); MANUAL DIFF FLAG SCAN; Mean Corpuscular HGB Conc 29.5 g/dl (31.0-35.0); Mean Corpuscular Hemoglobin 31.3 pg (27.0-33.0); Mean Corpuscular Volume 106.1 fL (80.0-98.0); NRBC Abs Auto 0.130 X10*3/uL (0.0-0.012); NRBC Pct Auto 0.8 /100WBC (0.0-0.2); Platelet Count 172 X10*3/uL (160-400); Red Blood Count 1.98 X10*6/uL (4.20-5.50); SCAN SMEAR FLAG 1; White Blood Count 17.0 X10*3/uL (4.8-10.8)
--- NOTE | 2025-10-03 00:21 | W.ED.CONS.HO ---
Consult Details Consult Details: Called to the floor for an intubation. Patient had massive GI bleed. Was hypotensive. Likely an upper GI bleed. I was asked to intubate patient. RSI was used. Patient was given etomidate 20 mg and succinylcholine 100 mg. Using glide scope. We were able to visualize the vocal court after intensive amount of suctioning. Over 400 cc of blood was suctioned out. The ET tube was passed successfully using a 7.5 ET tube. X-ray of the ET tube showed good placement after adjustment. OG was placed it is also in good position. Patient is getting blood at this point. Going to the intensive care unit.
[2025-10-03 00:25] LABS: Ammonia 100 umol/L (13-55)
[2025-10-03 00:25] LABS: VBG HCO3 11 mmol/L (22-26)
[2025-10-03 00:26] LABS: Hematocrit 21.0 % (37.0-47.0); Hemoglobin 6.2 g/dl (12.0-16.0)
[2025-10-03 00:28] LABS: Venous Blood Gas Refer to POC result
--- NOTE | 2025-10-03 00:35 | PM.CCN ---
Critical Care Event Note Summary Date of Service: 10/03/25 Code activated: Yes Narrative: This case had a high probability of a clinically significant, sudden, or life threatening deterioration of this patient's condition which required my full and direct attention, intervention and personal management. Critical Care Time (minutes): 90 Comment: 80yo F with Sjogren syndrome, scleroderma, CREST, chronic diastolic CHF, pulmonary hypertension, CKD 3, myelodysplastic syndrome, intestinal AV malformations, and avascular necrosis of the hip s/p recent [place] [facility] [place], recent admission to [facility] for aspiration PNA/ERIC/achalasia with apersitalsis/candidal esophagitis admitted on 09/25/2025 for management of CHF. On 10/02/2025, a KUB was ordered d/t persistent nausea with no evidence of bleeding.? Early this morning, a GRINDING WHEEL DRESSER was activated after she became unresponsive and hypotensive (SBP 50s) with agonal breathing, distended abdomen. During intubation, a large amount of coffee ground emesis was suctioned. She was then transferred to ICU with massive GI bleed and likely aspiration. On my exam, the pt is hypotensive to SBP 60s, ashen, with distended abdomen. There is black liquid stool in her colostomy bag. Blood is transfusing and she is being treated for hemorrhagic shock. CT ordered. Attempts to reach family have been unsuccessful.?
[2025-10-03 00:36] LABS: Alanine Aminotransferase 180 U/L (0-31); Albumin Level 2.0 g/dL (3.5-5.0); Alkaline Phosphatase 275 U/L (39-117); Anion Gap 24 (12-20); Aspartate Amino Transferase 559 U/L (5-31); Blood Urea Nitrogen 52 mg/dL (9-16); Calcium 7.7 mg/dL (8.4-10.2); Carbon Dioxide 11 mmol/L (22-29); Chloride 118 mmol/L (96-108); Creatinine Clr Calc Pharmacy 26.3; Estimated Glomerular Filt Rate 36; Magnesium 2.0 mg/dL (1.6-2.6); Potassium 5.1 mmol/L (3.3-5.1); Sodium 148 mmol/L (135-145); Total Protein 3.9 g/dL (6.5-8.0)
[2025-10-03 00:42] LABS: Glucose, Whole Blood 76 mg/dL (60-115)
[2025-10-03] MEDS: Vasopressin 20 UNIT/100 ML INFUS..BTL 12 UNIT IVCONT ×2 (00:45→18:22)
--- NOTE | 2025-10-03 00:49 | PC.NURSE ---
10/02/25 Handover received from previous RN and acquired are of pt. at 1900. Pt. awake, alert, weak at this time. Oriented to person and place, forgetful. Vital signs stable with O2 sat of 965 on 2L via NC. RR 22-24. pt. denies SOB. Lung sounds clear throughout. IVF infusing as ordered. pt. denies nausea or abdominal pain at this time. Tolerated oral meds. REGULATORY SPECIALIST called at 2345 d/t pt. less responsive with agonal breathing noted. BP not reading o2 not reading Agonal breathing LR @999 54/30 HR 97 1 Epi 2341 Awake, responding 2244: 190/96 HR: 94 100% 2247: 181-88 HR: 127 2345 intubating RSI meds: 20 etomidate 2248 100 succ 2248 400cc blood suctioned Color changing 2350 Intubated 7.5 tube 26 at lip 2355 BP: 129/60 HR: 110 0000 labs drawn xray at bedside Turned for xray bleeding out of mouth coffee ground emesis 0004 O2:93% Xray taken 0006 0007 Pulling back tube 2cm - 24 at lip Xray taken 0009 Pulling back tube 2cm - 22 at lip 0013 blood starting wide open 96.9 HR: [address]/Radiology with CARPENTER/LABOR. Handover to CARPENTER/LABOR Althea.
[2025-10-03 00:57] LABS: Troponin-I High Sensitivity 96.6 ng/L (<3.5-17.0)
[2025-10-03 01:21] LABS: Fibrinogen 341 MG/DL (259-690); INTERNATIONAL NORM RATIO 1.9 (0.9-1.1); Prothrombin Time 23.4 SEC (11.2-13.5)
[2025-10-03 01:23] LABS: Partial Thromboplastin Time 42.4 SEC (26.7-34.1)
[2025-10-03 01:24] LABS: ABG HCO3 15 mmol/L (22-26); ABG O2 % Saturation 99.0 %
[2025-10-03] MEDS: Calcium Chloride 1 GM/10 ML SYRINGE IVPUSH (01:40)
[2025-10-03] MEDS: Sodium Bicarbonate 8.4% 150 MEQ in Dextrose 5 % 850 ML 100 MEQ IV (01:41)
[2025-10-03] MEDS: Furosemide 20 MG/2 ML VIAL IVPUSH (01:43)
[2025-10-03 01:55] LABS: Hematocrit 34.1 % (37.0-47.0); Hemoglobin 10.7 g/dl (12.0-16.0); Mean Corpuscular HGB Conc 31.4 g/dl (31.0-35.0); Mean Corpuscular Hemoglobin 31.8 pg (27.0-33.0); Mean Corpuscular Volume 101.2 fL (80.0-98.0); NRBC Abs Auto 0.100 X10*3/uL (0.0-0.012); NRBC Pct Auto 0.5 /100WBC (0.0-0.2); Platelet Count 144 X10*3/uL (160-400); Red Blood Count 3.37 X10*6/uL (4.20-5.50); White Blood Count 19.4 X10*3/uL (4.8-10.8)
[2025-10-03 02:14] LABS: Reflex Lactate? Lactic Acid Added
[2025-10-03 02:29] LABS: Glucose, Whole Blood 223 mg/dL (60-115)
[2025-10-03 02:29] LABS: Glucose, Whole Blood 23 mg/dL (60-115)
[2025-10-03 02:29] LABS: Glucose, Whole Blood 244 mg/dL (60-115)
--- NOTE | 2025-10-03 03:12 | P.EN_ITS ---
Event Note Date of Service: 10/02/25 Event Note: S/O: 11:45 p.m. VOCATIONAL PSYCHOLOGIST after the patient was found barely responsive. Agonal breathing noted. Opened eyes briefly with painful stimuli and slurred speech. BP 54/30 and heart rate 97%. Epinephrine 1 mg IV and LR 1 L bolus infused. After these interventions her blood pressure increased to 190/93 and heart rate increased to 127 bpm. Patient was immediately intubated by ED provider, Dr. Serna, for airway protection and respiratory support. Coffee-ground gastric material was noted and around 400 ml were suction. A: 1. Hemorrhagic shock, suspected. 2. Marked encephalopathy secondary to hypoperfusion. P: -NPO. -LR 1L bolus. -Protonix 80 mg IV x1 then 40 mg IV b.i.d. -Epinephrine 1 mg IV X1. -Labs stat: CBC, CMP, lactic acid, troponin, type and crossmatch 3 units PRBCs to give wide open. -Head and abdominal pelvis CT scan stat. -Transfer to ICU. Time Spent With Patient Time: Total time managing care of this patient today ____ minutes.
[2025-10-03 03:15] LABS: Hematocrit 31.2 % (37.0-47.0); Hemoglobin 10.2 g/dl (12.0-16.0); Mean Corpuscular HGB Conc 32.7 g/dl (31.0-35.0); Mean Corpuscular Hemoglobin 31.6 pg (27.0-33.0); Mean Corpuscular Volume 96.6 fL (80.0-98.0); NRBC Abs Auto 0.020 X10*3/uL (0.0-0.012); NRBC Pct Auto 0.1 /100WBC (0.0-0.2); PLT CLUMP 1; Red Blood Count 3.23 X10*6/uL (4.20-5.50)
[2025-10-03 03:16] LABS: White Blood Count 18.3 X10*3/uL (4.8-10.8)
[2025-10-03 03:17] LABS: Platelet Count 134 X10*3/uL (160-400)
[2025-10-03 03:32] LABS: Anion Gap 22 (12-20); Blood Urea Nitrogen 54 mg/dL (9-16); Calcium 8.6 mg/dL (8.4-10.2); Carbon Dioxide 17 mmol/L (22-29); Chloride 117 mmol/L (96-108); Creatinine Clr Calc Pharmacy 26.7; Estimated Glomerular Filt Rate 36; Potassium 4.2 mmol/L (3.3-5.1); Sodium 152 mmol/L (135-145)
[2025-10-03 03:40] LABS: Troponin-I High Sensitivity 125.8 ng/L (<3.5-17.0)
[2025-10-03 05:07] LABS: Reflex Lactate? Lactic Acid Added
[2025-10-03 05:29] LABS: VBG HCO3 20 mmol/L (22-26); VBG O2 % Saturation 84.0 %
[2025-10-03 05:37] LABS: Hematocrit 31.6 % (37.0-47.0); Hemoglobin 10.3 g/dl (12.0-16.0); Imm Gran Abs Auto 0.23 X10*3/uL (0.00-0.03); Imm Gran Pct Auto 1.1 % (0.0-0.4); Lymphocytes Absolute Auto 0.5 X10*3/uL (1.2-4.9); Mean Corpuscular HGB Conc 32.6 g/dl (31.0-35.0); Mean Corpuscular Hemoglobin 31.3 pg (27.0-33.0); Mean Corpuscular Volume 96.0 fL (80.0-98.0); NRBC Abs Auto 0.030 X10*3/uL (0.0-0.012); NRBC Pct Auto 0.1 /100WBC (0.0-0.2); Platelet Count 147 X10*3/uL (160-400); Red Blood Count 3.29 X10*6/uL (4.20-5.50); SCAN SMEAR FLAG 1; White Blood Count 21.3 X10*3/uL (4.8-10.8)
[2025-10-03 05:43] LABS: MANUAL DIFF FLAG SCAN
[2025-10-03 06:03] LABS: Alanine Aminotransferase 427 U/L (0-31); Albumin Level 2.2 g/dL (3.5-5.0); Alkaline Phosphatase 253 U/L (39-117); Anion Gap 21 (12-20); Aspartate Amino Transferase 1590 U/L (5-31); Blood Urea Nitrogen 58 mg/dL (9-16); Calcium 8.5 mg/dL (8.4-10.2); Carbon Dioxide 19 mmol/L (22-29); Chloride 116 mmol/L (96-108); Creatinine Clr Calc Pharmacy 25.8; Estimated Glomerular Filt Rate 35; Magnesium 1.8 mg/dL (1.6-2.6); Potassium 3.9 mmol/L (3.3-5.1); Sodium 152 mmol/L (135-145); Total Protein 4.4 g/dL (6.5-8.0)
[2025-10-03 06:04] LABS: Troponin-I High Sensitivity 181.2 ng/L (<3.5-17.0)
[2025-10-03 06:41] LABS: Venous Blood Gas Refer to POC result
--- NOTE | 2025-10-03 07:24 | PC.NURSE ---
Pt transferred to ICU s/p CLEAN UP WORKER/intubation on [place] at approx 0022- see previous nursing/event notes for details. Upon initial assessment- first unit pRBC infusing. INPATIENT SERVICES RN aware of critical labs- bicarb amp given per MAR. SBP 70s, MAP 40s, HR 110s- levophed ordered and started per MAR; titrated to maintain SBP > 90 and MAP > 65. Levophed maxed with SBP 60s, vasopressin ordered and started per MAR. Pt becoming restless, reaching for lines/tubes- propofol started and titrated per MAR. Second unit of pRBC ordered and started per TAR. Additional PIV access obtained. Multiple amps of bicarb and gtt started. 1 amp of calcium chloride given. Blood pooling in oropharynx, abd large, distended, round. OGT placed to LIWS with approx 250 mL of dark blood-tinged output. 400 mL of dark blood-tinged liquid stool emptied from ostomy. IV PPI given at approx 0139. SpO2 80s on 100% FiO2, fine crackles auscultated, given lasix 20 mg IVP at 0143 without urine output via indwelling catheter. Core esophageal probe placed- temp 95.9, warm blankets applied with good effect. 1 unit FFP given at approx 0200. Left chest implanted port re-accessed at 0300; labs obtained for phlebotomy. DHAVAL Evans attempted to call/update family multiple times with no response. See EMR/flowsheet for further details.
[2025-10-03 07:37] LABS: Reflex Lactate? Lactic Acid Added
[2025-10-03] MEDS: 0.9 % Sodium Chloride Flush 3 ML SYRINGE IVFLUSH ×3 (07:59→21:41)
--- NOTE | 2025-10-03 08:05 | P.EN_ITS ---
Event Note Date of Service: 10/03/25 Event Note: Overnight events noted. Call placed to son, Doug Romero ([phone]). Patient is proxy and was updated with the overnight events which included transfusion and intubation. After minimal deliberation, patient has changed his mother's code status to DNR/DNI. Advised that he should consider at some time CHIEF FUNDRAISING OFFICER. Advised to come to visit patient as he lives in [place]. He will travel today. Status changed in computer Time Spent With Patient Time: Total time managing care of this patient today ____ minutes.
--- NOTE | 2025-10-03 08:08 | P.CNGI_ITS ---
History of Present Illness Data of Consult Service Date: 10/03/25 Requesting physician: Alondra Evans Primary Care Provider: Jermaine Lazaro [facility] Reason for consult: GI bleeding 80 YF with pulmonary hypertension, Sjogren syndrome, crest syndrome, heart failure with preserved ejection fraction, myelo- dysplastic syndrome with transfusion dependence, CKD stage 3, intestinal AV malformations, avascular necrosis admitted to [facility] on 09/25/25 with increased lower extremity edema. GI consulted for GI bleeding and pt was transfused 3 U PRBC overnight. Patient admitted to [facility] on 08/20 and discharged on 09/03, during that admission she was treated for a total left hip arthroplasty in his setting of left avascular necrosis status post trochanteric fracture fixation. Due to her complex medical history she was transferred to the medical ICU for close monitoring initially and then transferred to medical floor. She was discharged from [facility] to short-term rehab then according to the ER providers records she developed chest pain and went to [facility] and was admitted there for 2 weeks discharged just yesterday, according to the patient she was told that she has a ?heart infection? she also has a left chest IV access support. She is unable to say what antibiotics she was taken/is supposed to be taking. Pt became hypotensive last night due to hemorrhagic shock and rapid response was called and pt was transferred to ICU: 11:45 p.m. [employer] after the patient was found barely responsive. Agonal breathing noted. Opened eyes briefly with painful stimuli and slurred speech. BP 54/30 and heart rate 97%. Epinephrine 1 mg IV and LR 1 L bolus infused. After these interventions her blood pressure increased to 190/93 and heart rate increased to 127 bpm. Patient was immediately intubated by ED provider, Dr. Serna, for airway protection and respiratory support. Coffee-ground gastric material was noted and around 400 ml were suction. A: 1. Hemorrhagic shock, suspected. 2. Marked encephalopathy secondary to hypoperfusion. P: -NPO. -LR 1L bolus. -Protonix 80 mg IV x1 then 40 mg IV b.i.d. -Epinephrine 1 mg IV X1. -Labs stat: CBC, CMP, lactic acid, troponin, type and crossmatch 3 units PRBCs to give wide open. -Head and abdominal pelvis CT scan stat. -Transfer to ICU. Review of Systems 2 Review of Systems: Yes Unobtainable due to mental condition [facility] Past Medical History Medical History (Updated 10/03/25 @ 09:06 by Alexia Narayanan MD) Fungal esophagitis GERD (gastroesophageal reflux disease) Avascular necrosis Myelodysplastic syndrome Telangiectasia Pulmonary hypertension OCD (obsessive compulsive disorder) Humeral fracture Chronic anemia CREST (calcinosis, Raynaud's phenomenon, esophageal dysfunction, sclerodactyly, telangiectasia) Sjogren syndrome Family History Family History Mother Diabetes mellitus Seizure disorder Father Past heart attack Son Diabetes mellitus type 1 Family history: reviewed and not pertinent Surgical History Surgical History S/P ORIF (open reduction internal fixation) fracture H/O shoulder replacement Social History Social History Household Members: Spouse Housing Other:: [facility] Housing Do you presently have visiting nurse or other home services: Yes (13/05 aids) Patient Tobacco Use Status: Never used Tobacco Advance Directives Date on File: 10/21/14 service: No Meds Allergies Allergy/AdvReac Type Severity Reaction Status Date / Time bee pollen (bees) Allergy Swelling Verified 09/25/25 14:17 niacin Allergy Rash Verified 09/25/25 14:16 epinephrine AdvReac Shakiness Verified 09/25/25 14:15 Active Medications: Current Medications Acetaminophen (Acetaminophen 325 Mg Tablet) 650 mg PO Q6H PRN On Hold: 10/03/25 01:30 Comment: Order held by Process Transfer PRN Reason: Pain, Mild 1-3,fever,headache Last Admin: 09/28/25 21:30 Dose: 650 mg Calcium Carbonate (Calcium Carbonate 750 Mg Tab.Chew) 750 mg PO Q4H PRN On Hold: 10/03/25 01:30 Comment: Order held by Process Transfer PRN Reason: Heartburn Dorzolamide HCl (Dorzolamide Hcl 2 % Ophth Myranda 10 Ml Drpbtl) 1 drop EYE-BOTH BID SILVANO Last Admin: 10/02/25 20:39 Dose: 1 drop Gabapentin (Gabapentin 100 Mg Capsule) 200 mg PO BEDTIME SILVANO Last Admin: 10/02/25 20:37 Dose: 200 mg Heparin Sodium (Porcine) (Heparin Sodium,Porcine 5,000 Unit/Ml Vial) 5,000 unit SUBCUT Q12H SILVANO On Hold: 10/03/25 01:30 Comment: Order held by Process Transfer Last Admin: 10/02/25 16:09 Dose: Not Given Caspofungin 50 mg/ Sodium (Chloride) 250 mls @ 250 mls/hr IV Q24H SILVANO Last Infusion: 10/02/25 12:23 Dose: Infused Piperacillin Sod/Tazobactam (Sod 3.375 gm/ Sodium Chloride) 50 mls @ 100 mls/hr IV Q6H SILVANO Last Infusion: 10/03/25 02:31 Dose: Infused Daptomycin 500 mg/ Sodium (Chloride) 60 mls @ 100.84 mls/hr IV Q24H SILVANO Last Infusion: 10/02/25 17:11 Dose: Infused Epinephrine 5 mg/ Dextrose 255 mls @ 0 mls/hr IVCONT .Q0M SILVANO; Protocol Sodium Bicarbonate 150 meq/ (Dextrose) 1,000 mls @ 100 mls/hr IV .Q10H SILVANO Last Admin: 10/03/25 01:41 Dose: 100 mls/hr Propofol (Diprivan) 1,000 mg in 100 mls @ 0 mls/hr IVCONT .Q0M SILVANO; Protocol Last Admin: 10/03/25 05:56 Dose: 40 mcg/kg/min, 14.26 mls/hr Vasopressin (Vasostrict) 20 unit in 100 mls @ 12 mls/hr IVCONT .Q8H20M SILVANO; Protocol Last Infusion: 10/03/25 01:34 Dose: 0 unit/min, 0 mls/hr Norepinephrine Bitartrate (Levophed) 8 mg in 250 mls @ 0 mls/hr IVCONT .Q0M SILVANO; Protocol Last Admin: 10/03/25 06:37 Dose: 0.2 mcg/kg/min, 24.75 mls/hr Albumin Human (Kedbumin 25 %) 100 mls @ 100 mls/hr IV Q1H [facility] Stop: 10/03/25 09:29 Lidocaine (Lidocaine 4 % Patch Adh..Patch) 1 patch TRANSDERMA DAILY SILVANO; Protocol Last Admin: 10/02/25 09:00 Dose: Not Given Lidocaine (Lidocaine 4 % Patch Adh..Patch) 1 patch TRANSDERMA DAILY SILVANO; Protocol Last Admin: 10/02/25 09:00 Dose: Not Given Lidocaine (Lidocaine 4 % Patch Adh..Patch) 2 patch TRANSDERMA DAILY SILVANO; Protocol Last Admin: 10/02/25 09:00 Dose: Not Given Magnesium Hydroxide (Milk Of Magnesia 30 Ml Oral.Susp) 30 ml PO DAILY PRN On Hold: 10/03/25 01:30 Comment: Order held by Process Transfer PRN Reason: Constipation Melatonin (Melatonin 3 Mg Tablet) 6 mg PO BEDTIME PRN On Hold: 10/03/25 01:30 Comment: Order held by Process Transfer PRN Reason: Insomnia Metoclopramide HCl (Metoclopramide Hcl 10 Mg/2 Ml Vial) 5 mg IVPUSH Q6H PRN PRN Reason: Nausea and Vomiting Last Admin: 10/02/25 11:24 Dose: 5 mg Metoprolol Succinate (Metoprolol Succinate Er 50 Mg Tab.Er.24h) 50 mg PO DAILY [facility]; Protocol On Hold: 10/03/25 01:30 Comment: Order held by Process Transfer Last Admin: 10/02/25 08:08 Dose: 50 mg Morphine Sulfate (Morphine Sulfate 4 Mg/Ml Cartridge) 4 mg IVPUSH Q3H PRN; Protocol PRN Reason: Pain, Severe (Pain Scale 7-10) Last Admin: 10/02/25 17:47 Dose: 4 mg Multivitamins/Vitamin C (Multivitamin Tablet) 1 tab PO DAILY SILVANO On Hold: 10/03/25 01:30 Comment: Order held by Process Transfer Last Admin: 10/02/25 16:16 Dose: Not Given Patient Own Med ( Ambrisentan [ Letairis] 5 Mg Tablet) 5 mg PO BEDTIME SILVANO On Hold: 10/03/25 01:30 Comment: Order held by Process Transfer Last Admin: 10/02/25 20:38 Dose: 5 mg Patient Own Med ( Treprostinil Diolamine [Orenitram ] 1 Mg Tablet Extended Release) 3 mg PO TID SILVANO On Hold: 10/03/25 01:30 Comment: Order held by Process Transfer Last Admin: 10/02/25 21:35 Dose: 3 mg Ondansetron HCl (Ondansetron Hcl 4 Mg/2 Ml Vial) 4 mg IVPUSH Q4H PRN PRN Reason: Nausea and Vomiting Oxycodone HCl (Oxycodone Hcl Immed Release 5 Mg Tablet) 5 mg PO Q4H PRN On Hold: 10/03/25 01:30 Comment: Order held by Process Transfer PRN Reason: Pain, Severe (Pain Scale 7-10) Pantoprazole Sodium (Pantoprazole Sodium 40 Mg/10 Ml Vial) 40 mg IVPUSH BID@0630,1630 [facility] Quetiapine Fumarate (Quetiapine Fumarate 25 Mg Tablet) 25 mg PO BEDTIME [facility] On Hold: 10/03/25 01:30 Comment: Order held by Process Transfer Last Admin: 10/02/25 20:37 Dose: 25 mg Sildenafil Citrate (Sildenafil Citrate 20 Mg Tablet) 20 mg PO TID [facility] On Hold: 10/03/25 01:30 Comment: Order held by Process Transfer Last Admin: 10/02/25 20:37 Dose: 20 mg Sodium Chloride (0.9 % Sodium Chloride Flush 3 Ml Syringe) 3 ml IVFLUSH QSHIFT [facility] Last Admin: 10/03/25 01:33 Dose: Not Given Sodium Hypochlorite (Sodium Hypochlorite 0.125% 473 Ml Solution) 1 appl TOPICAL BID [facility] Last Admin: 10/03/25 00:26 Dose: Not Given Home Medications ?Medication ?Instructions ?Recorded ?Confirmed ?Last Taken ?Type ambrisentan 5 mg tablet (Letairis) 5 mg PO BEDTIME 04/1409/26/25 08/20/25 History brinzolamide 1 % eye 1 drp ophthalmic (eye) BID 1 11/26/24 09/26/25 09/25/25 History drops,suspension gabapentin 100 mg capsule 200 mg PO BEDTIME 09/25/25 1 11/27/24 08/20/25 History oxycodone 5 mg tablet 5 mg PO QID PRN Pain 5 09/26/25 Unknown History perfluorohexyloctane (PF) 100 % 1 drp ophthalmic (eye) BID 09/25/25 09/26/25 09/25/25 History eye drops (Miebo (PF)) quetiapine 25 mg tablet 25 mg PO BEDTIME 09/25/2508/20/25 History sildenafil (pulm.hypertension) 20 20 mg PO TID 5 09/26/25 08/20/25 History mg tablet treprostinil diolamine 1 mg 3 mg PO TID 09/25/2509/2608/20/25 History tablet,extended release (Orenitram) metoprolol succinate 50 mg 50 mg PO DAILY 09/26/2505/14 Unknown History tablet,extended release 24 hr vitamin B complex 1 tab PO DAILY 09/26/25 1205/1408/20/25 History Physical Exam 2 Vital Signs: Vital Signs: Last Vital Signs Temp 97.3 F 10/03/25 07:00 Pulse 118 H 10/03/25 07:00 Resp 26 H 10/03/25 07:00 BP 108/46 L 10/03/25 07:00 Pulse Ox 97 10/03/25 07:00 O2 Del Method Mechanical Ventil ation 10/03/25 07:00 O2 Flow Rate 4 10/02/25 19:37 FiO2 100 10/03/25 07:00 BMI result Body Mass Index 25.8 Const: Other: intubated, sedated; no appreciable spontaneous movements General: no acute distress Nutritional Appearance: cachectic, malnourished and underweight Orientation/consciousness: patient oriented x3 HEENT: Other: appreciable dry, dark blood in nares and mouth Head: Yes normal to inspection, Yes normocephalic and Yes atraumatic E ars: hearing grossly normal bilaterally Mouth: Normal oral and palatal mucosa present Eyes: General: appearance normal, both eyes and all related structures S clerae: sclerae normal Pupils: Equal, round and reactive pupils present Neck: Neck: Yes normal visual inspection, Yes full ROM, Yes no meningeal signs, Yes trachea midline and Yes supple Chest: Chest palpation & inspection: normal inspection of the chest Resp: Other: appreciable rhonchi and some rales throughout; no appreciable overt wheezing Effort & Inspection: normal respiratory effort Auscultation: clear to auscultation bilaterally Cardio: Palpation: normal PMI Rate: tachycardic Rhythm: regular rhythm Heart sounds: S1 normal heart sound present, S2 normal heart sound present and no murmurs GI: Other: distended, though soft, compressible; no appreciable overt tenderness to palpation throughout Inspection: No Abdominal wall edema and Yes other (colostomy bag in LUQ with dark stools) Palpation (GI): not firm, Tenderness to palpation present (GI), no guarding and not rigid Auscultation: normal bowel sounds Rectal Exam - Female: deferred Skin: General skin exam: no rashes or lesions noted Neuro: General: patient oriented x3, tone normal and no meningeal signs C ranial nerves: Yes Equal, round and reactive pupils present Extrem: Other: appreciable 1+ pitting edema to bilateral thighs General: Yes normal to inspection and Yes pedal edema Psych: Other: unable to assess Appearance: grossly normal Mental Status: mental status grossly normal Results Labs 10/03/25 05:21 10/03/25 05:21 Labs: Short CBC 10/03/25 10/03/25 10/03/25 Range/Units 00:09 01:31 03:04 WBC 17.0 H 19.4 H 18.3 H (4.8-10.8) X10*3/uL Hgb 6.2 L* D 10.7 L D 10.2 L (12.0-16.0) g/dl Hct 21.0 L* D 34.1 L D 31.2 L (37.0-47.0) % Plt Count 172 144 L 134 L (160-400) X10*3/uL 10/03/25 Range/Units 05:21 WBC 21.3 H (4.8-10.8) X10*3/uL Hgb 10.3 L (12.0-16.0) g/dl Hct 31.6 L (37.0-47.0) % Plt Count 147 L (160-400) X10*3/uL BMP 10/03/25 10/03/25 10/03/25 00:09 03:04 05:21 Sodium 148 H 152 H 152 H Potassium 5.1 D 4.2 3.9 Chloride 118 H 117 H 116 H Carbon Dioxide 11 L 17 L 19 L BUN 52 H 54 H 58 H Creatinine 1.41 H 1.39 1.44 H Calcium 7.7 L D 8.6 D 8.5 Liver Function 10/03/25 10/03/25 10/03/25 Range/Units 00:09 05:21 05:21 Total Bilirubin 0.8 0.9 (0.0-1.0) mg/dL AST 559 H 1590 H (5-31) U/L ALT 180 H 427 H (0-31) U/L Alkaline Phosphatase 275 H 253 H (39-117) U/L Albumin 2.0 L 2.2 L Cancelled (3.5-5.0) g/dL Microbiology Microbiology Results: Microbiology 09/25/25 16:55 Blood - Venous Blood Culture - Final No growth after 5 days. 09/25/25 16:57 Blood - Venous Blood Culture - Final No growth after 5 days. 09/25/25 16:43 Sacrum Gram Stain - Final 09/25/25 16:43 Sacrum Routine Culture - Final Pseudomonas aeruginosa Enterococcus faecalis Assessment and Plan (1) Upper GI bleed: Status: Acute Plan 80 YF with pulmonary hypertension, Sjogren syndrome, crest syndrome, heart failure with preserved ejection fraction, myelo-dysplastic syndrome with transfusion dependence, CKD stage 3, intestinal AV malformations, avascular necrosis admitted to [facility] on 09/25/25 with increased lower extremity edema. GI consulted for acute GI bleeding complicated by hemorrhagic shock and pt was transfused 3 U PRBC and transferred to ICU UGI bleeding is likely from PUD, stress gastritis or UGI AVMs. Pt has multiple comorbidities and family is considering transitioning to comfort measures due to poor prognosis RECOMMENDATIONS: 1. Agree with IV PPI and pressors. 2. Monitor CBC twice daily and transfuse prn 3. Recommend conservative management. Procedures Date of Service Date of Service: 10/03/25
[2025-10-03] MEDS: Albumin Human 25 % 100 ML IV ×2 (08:14→09:27)
[2025-10-03 08:17] LABS: ~Lactic Acid-LAB USE ONLY 5.4 mmol/L (0.5-2.0)
[2025-10-03] MEDS: Dorzolamide HCl 2 % Ophth Sol 10 ML DRPBTL 1 DROP EYE-BOTH (08:19)
--- NOTE | 2025-10-03 08:48 | P.PNCC_ITS ---
Subjective Subjective Date of Service: 10/03/25 Interval History: admitted 10/02 PM w/ GI bleed, c/b hemorrhagic shock; continued guarded, critical clinical status; of note, Dr. Condon able to reach patient's son, encouraged to come to hospital, changed code status to DNR/DNI Critical Care Time (minutes): 90 Physical Exam 2 Vital Signs: Vital Signs: Last Vital Signs Temp 97.5 F 10/03/25 08:00 Pulse 117 H 10/03/25 08:18 Resp 24 H 10/03/25 08:00 BP 94/43 L 10/03/25 08:18 Pulse Ox 99 10/03/25 08:00 O2 Del Method Mechanical Ventil ation 10/03/25 08:00 O2 Flow Rate 4 10/02/25 19:37 FiO2 100 10/03/25 08:00 BMI result Body Mass Index 25.8 Const: Other: intubated, sedated; no appreciable spontaneous movements General: no acute distress Nutritional Appearance: cachectic, malnourished and underweight HEENT: Other: appreciable dry, dark blood in nares and mouth Head: Yes normal to inspection, Yes normocephalic and Yes atraumatic Eyes: General: appearance normal, both eyes and all related structures Neck: Neck: Yes normal visual inspection, Yes full ROM, Yes no meningeal signs, Yes trachea midline and Yes supple Chest: Chest palpation & inspection: normal inspection of the chest Resp: Other: appreciable rhonchi and some rales throughout; no appreciable overt wheezing Effort & Inspection: normal respiratory effort Cardio: Rate: tachycardic Rhythm: regular rhythm GI: Other: distended, though soft, compressible; no appreciable overt tenderness to palpation throughout Inspection: No Abdominal wall edema Palpation (GI): not firm, Tenderness to palpation present (GI), no guarding and not rigid Skin: General skin exam: no rashes or lesions noted Neuro: General: tone normal and no meningeal signs Extrem: Other: appreciable 1+ pitting edema to bilateral thighs General: Yes normal to inspection, Yes full ROM and Yes capillary refill normal Psych: Other: unable to assess Objective Data Labs 10/03/25 05:21 10/03/25 05:21 Labs: Laboratory Results - last 24 hr 10/02/25 10/03/25 10/03/25 23:34 00:09 00:10 WBC 17.0 H RBC 1.98 L D Hgb 6.2 L* D Hct 21.0 L* D MCV 106.1 H D MCH 31.3 MCHC 29.5 L RDW 21.8 H Plt Count 172 MPV 11.0 Immature Gran % (Auto) 1.4 H Neut % (Auto) 90.8 H Lymph % (Auto) 3.2 L [place] % (Auto) 4.4 Eos % (Auto) 0.1 Baso % (Auto) 0.1 Lymph # (Auto) 0.5 L [place] # (Auto) 0.7 Eos # (Auto) 0.0 Baso # (Auto) 0.0 Abs Immat Gran (auto) 0.24 H Absolute Neuts (auto) 15.4 H Absolute Nucleated RBC 0.130 H Nucleated RBC % (auto) 0.8 H Smear Tech's Comments VERIFIED PT 23.4 H INR 1.9 H APTT 42.4 H Fibrinogen 341 O2 Saturation ABG pH at Pt Temp ABG pCO2 at Pt Temp ABG pO2 at Pt Temp ABG HCO3 ABG Base Excess (Actual) VBG pH VBG pCO2 VBG pO2 VBG HCO3 VBG O2 Saturation VBG Base Excess Sodium 148 H Potassium 5.1 D Chloride 118 H Carbon Dioxide 11 L Anion Gap 24 H BUN 52 H Creatinine 1.41 H Estim Creat Clear Calc 26.3 Estimated GFR 36 POC Glucose 83 Random Glucose 111 Fasting Glucose Lactic Acid 13.7 H* Lactic Acid F/U @ 2Hr Calcium 7.7 L D Phosphorus 4.7 H Magnesium 2.0 Total Bilirubin 0.8 AST 559 H ALT 180 H Alkaline Phosphatase 275 H Ammonia 100 H Troponin I High Sens 96.6 H* D NT-Pro-B Natriuret Pep 62483.9 H Total Protein 3.9 L Albumin 2.0 L Blood Type B Positive Antibody Screen NEGATIVE Crossmatch See Detail 10/03/25 10/03/25 10/03/25 00:13 00:39 00:55 WBC RBC Hgb Hct MCV MCH MCHC RDW Plt Count MPV Immature Gran % (Auto) Neut % (Auto) Lymph % (Auto) [place] % (Auto) Eos % (Auto) Baso % (Auto) Lymph # (Auto) [place] # (Auto) Eos # (Auto) Baso # (Auto) Abs Immat Gran (auto) Absolute Neuts (auto) Absolute Nucleated RBC Nucleated RBC % (auto) Smear Tech's Comments PT INR APTT Fibrinogen O2 Saturation ABG pH at Pt Temp ABG pCO2 at Pt Temp ABG pO2 at Pt Temp ABG HCO3 ABG Base Excess (Actual) VBG pH 7.04 L* VBG pCO2 39 VBG pO2 95 VBG HCO3 11 L VBG O2 Saturation Not Reportable VBG Base Excess -17.7 Sodium Potassium Chloride Carbon Dioxide Anion Gap BUN Creatinine Estim Creat Clear Calc Estimated GFR POC Glucose 76 23 L* Random Glucose Fasting Glucose Lactic Acid Lactic Acid F/U @ 2Hr Calcium Phosphorus Magnesium Total Bilirubin AST ALT Alkaline Phosphatase Ammonia Troponin I High Sens NT-Pro-B Natriuret Pep Total Protein Albumin Blood Type Antibody Screen Crossmatch 10/03/25 10/03/25 10/03/25 01:00 01:13 01:20 WBC RBC Hgb Hct MCV MCH MCHC RDW Plt Count MPV Immature Gran % (Auto) Neut % (Auto) Lymph % (Auto) [place] % (Auto) Eos % (Auto) Baso % (Auto) Lymph # (Auto) [place] # (Auto) Eos # (Auto) Baso # (Auto) Abs Immat Gran (auto) Absolute Neuts (auto) Absolute Nucleated RBC Nucleated RBC % (auto) Smear Tech's Comments PT INR APTT Fibrinogen O2 Saturation 99.0 ABG pH at Pt Temp 7.27 L ABG pCO2 at Pt Temp 32 ABG pO2 at Pt Temp 97 ABG HCO3 15 L ABG Base Excess (Actual) -10.7 VBG pH VBG pCO2 VBG pO2 VBG HCO3 VBG O2 Saturation VBG Base Excess Sodium Potassium Chloride Carbon Dioxide Anion Gap BUN Creatinine Estim Creat Clear Calc Estimated GFR POC Glucose 223 H 244 H Random Glucose Fasting Glucose Lactic Acid Lactic Acid F/U @ 2Hr Calcium Phosphorus Magnesium Total Bilirubin AST ALT Alkaline Phosphatase Ammonia Troponin I High Sens NT-Pro-B Natriuret Pep Total Protein Albumin Blood Type Antibody Screen Crossmatch 10/03/25 10/03/25 10/03/25 01:31 03:04 05:21 WBC 19.4 H 18.3 H 21.3 H RBC 3.37 L D 3.23 L 3.29 L Hgb 10.7 L D 10.2 L 10.3 L Hct 34.1 L D 31.2 L 31.6 L MCV 101.2 H 96.6 96.0 MCH 31.8 31.6 31.3 MCHC 31.4 32.7 32.6 RDW 18.4 H 17.3 H 17.8 H Plt Count 144 L 134 L 147 L MPV 11.1 10.7 10.8 Immature Gran % (Auto) 1.1 H Neut % (Auto) 93.0 H Lymph % (Auto) 2.4 L [place] % (Auto) 3.1 Eos % (Auto) 0.0 Baso % (Auto) 0.4 Lymph # (Auto) 0.5 L [place] # (Auto) 0.7 Eos # (Auto) 0.0 Baso # (Auto) 0.1 Abs Immat Gran (auto) 0.23 H Absolute Neuts (auto) 19.8 H Absolute Nucleated RBC 0.100 H 0.020 H 0.030 H Nucleated RBC % (auto) 0.5 H 0.1 0.1 Smear Tech's Comments PT INR APTT Fibrinogen O2 Saturation ABG pH at Pt Temp ABG pCO2 at Pt Temp ABG pO2 at Pt Temp ABG HCO3 ABG Base Excess (Actual) VBG pH VBG pCO2 VBG pO2 VBG HCO3 VBG O2 Saturation VBG Base Excess Sodium 152 H 152 H Potassium 4.2 3.9 Chloride 117 H 116 H Carbon Dioxide 17 L 19 L Anion Gap 22 H 21 H BUN 54 H 58 H Creatinine 1.39 1.44 H Estim Creat Clear Calc 26.7 25.8 Estimated GFR 36 35 POC Glucose Random Glucose 220 H Fasting Glucose 211 H Lactic Acid 9.6 H* 7.7 H* Lactic Acid F/U @ 2Hr Calcium 8.6 D 8.5 Phosphorus 3.0 Magnesium Total Bilirubin AST ALT Alkaline Phosphatase Ammonia Troponin I High Sens 125.8 H* NT-Pro-B Natriuret Pep Total Protein Albumin Blood Type Antibody Screen Crossmatch 10/03/25 10/03/25 10/03/25 05:21 05:21 05:21 WBC RBC Hgb Hct MCV MCH MCHC RDW Plt Count MPV Immature Gran % (Auto) Neut % (Auto) Lymph % (Auto) [place] % (Auto) Eos % (Auto) Baso % (Auto) Lymph # (Auto) [place] # (Auto) Eos # (Auto) Baso # (Auto) Abs Immat Gran (auto) Absolute Neuts (auto) Absolute Nucleated RBC Nucleated RBC % (auto) Smear Tech's Comments PT INR APTT Fibrinogen O2 Saturation ABG pH at Pt Temp ABG pCO2 at Pt Temp ABG pO2 at Pt Temp ABG HCO3 ABG Base Excess (Actual) VBG pH VBG pCO2 VBG pO2 VBG HCO3 VBG O2 Saturation VBG Base Excess Sodium Potassium Chloride Carbon Dioxide Anion Gap BUN Creatinine Estim Creat Clear Calc Estimated GFR POC Glucose Random Glucose Fasting Glucose Lactic Acid Lactic Acid F/U @ 2Hr Calcium Phosphorus Cancelled Magnesium 1.8 Cancelled Total Bilirubin 0.9 AST 1590 H ALT 427 H Alkaline Phosphatase 253 H Ammonia Troponin I High Sens 181.2 H* NT-Pro-B Natriuret Pep Total Protein 4.4 L Albumin 2.2 L Cancelled Blood Type Antibody Screen Crossmatch 10/03/25 10/03/25 05:24 07:54 WBC RBC Hgb Hct MCV MCH MCHC RDW Plt Count MPV Immature Gran % (Auto) Neut % (Auto) Lymph % (Auto) [place] % (Auto) Eos % (Auto) Baso % (Auto) Lymph # (Auto) [place] # (Auto) Eos # (Auto) Baso # (Auto) Abs Immat Gran (auto) Absolute Neuts (auto) Absolute Nucleated RBC Nucleated RBC % (auto) Smear Tech's Comments PT INR APTT Fibrinogen O2 Saturation ABG pH at Pt Temp ABG pCO2 at Pt Temp ABG pO2 at Pt Temp ABG HCO3 ABG Base Excess (Actual) VBG pH 7.48 H VBG pCO2 27 VBG pO2 53 VBG HCO3 20 L VBG O2 Saturation 84.0 VBG Base Excess -2.0 Sodium Potassium Chloride Carbon Dioxide Anion Gap BUN Creatinine Estim Creat Clear Calc Estimated GFR POC Glucose Random Glucose Fasting Glucose Lactic Acid Lactic Acid F/U @ 2Hr 5.4 H* Calcium Phosphorus Magnesium Total Bilirubin AST ALT Alkaline Phosphatase Ammonia Troponin I High Sens NT-Pro-B Natriuret Pep Total Protein Albumin Blood Type Antibody Screen Crossmatch Microbiology Microbiology Results: Microbiology 09/25/25 16:55 Blood - Venous Blood Culture - Final No growth after 5 days. 09/25/25 16:57 Blood - Venous Blood Culture - Final No growth after 5 days. 09/25/25 16:43 Sacrum Gram Stain - Final 09/25/25 16:43 Sacrum Routine Culture - Final Pseudomonas aeruginosa Enterococcus faecalis Progress Note: A&P Assessment and plan (1) Hemorrhagic shock: Status: Acute (2) Upper GI bleed: Status: Acute Plan Patient is a 80 Y F w/ multiple co-morbidities including HFpEF, chronic renal insufficiency, sjogren's syndrome, scleroderma/CREST, esophagitis and intestinal AV malformations, presenting to ED on 09/25 w/ peripheral edema, admitted medicine for CHF exacerbation; on 10/02 PM, patient found to be obtunded, w/ large-volume coffee-ground emesis and melena and hypotension, c/f hemorrhagic shock, subsequently intubated and initiated on massive transfusion protocol N: intubated, sedated propofol gtt CV: shock, likely hemorrhagic and vasodilatory, norepinephrine gtt, transfusions as needed R: intubated in setting of upper GI bleed 10/02 GI: upper GI bleed, likely d/t esophagitis, PPI BID, appreciate GI recommendations; transaminitis, likely d/t shock liver : acute renal insufficiency, likely pre-renal, to closely monitor renal indices/electrolytes; c/f volume overload, furosemide gtt as tolerated H: upper GI bleed c/b hemorrhagic shock, transfussions as needed, avoid chemical DVT prophlyaxis ID: jeaneth esophagitis, caspofungin; aortic vegetation, daptomycin; empiric zosyn; to follow-up BCx 10/03 E: no acute issues; to closely monitor hypo-/hyper-glycemia P: no acute issues S: of note, Dr. Condon able to reach patient's son, encouraged to come to hospital, changed code status to DNR/DNI Quality Stroke Does the patient have a stroke diagnosis?: No VTE Prior VTE?: No VTE Risk Level:: Medical - moderate - high VTE Device Contraindication: N/A - Device Ordered VTE Drug Contraindication: Treatment Not Tolerated
[2025-10-03] MEDS: Calcium Gluconate/NaCl,Iso-Osm 1 GM/50 ML PLAST..BAG IV (09:39)
[2025-10-03 09:57] LABS: Reflex Lactate? 2 Y
[2025-10-03 10:34] LABS: ~Lactic Acid-LAB USE ONLY 4.2 mmol/L (0.5-2.0)
--- NOTE | 2025-10-03 10:39 | MHC.CM.PN ---
Patient is currently intubated/vented in ICU. Copy of HCP obtained from [facility]. Continue to monitor for d/c needs.
[2025-10-03 11:20] LABS: Glucose, Whole Blood 191 mg/dL (60-115)
[2025-10-03] MEDS: Furosemide 200 MG in 0.9 % Sodium Chloride 80 ML IVCONT (13:31)
[2025-10-03 17:47] LABS: Glucose, Whole Blood 145 mg/dL (60-115)
[2025-10-03 18:07] LABS: VBG HCO3 26 mmol/L (22-26); VBG O2 % Saturation 100.0 %
[2025-10-03 18:07] LABS: Venous Blood Gas Refer to POC result
[2025-10-03 18:23] LABS: Alanine Aminotransferase 423 U/L (0-31); Albumin Level 2.7 g/dL (3.5-5.0); Alkaline Phosphatase 178 U/L (39-117); Aspartate Amino Transferase 1131 U/L (5-31); Blood Urea Nitrogen 65 mg/dL (9-16); Calcium 8.5 mg/dL (8.4-10.2); Creatinine Clr Calc Pharmacy 26.1; Estimated Glomerular Filt Rate 32; Magnesium 1.7 mg/dL (1.6-2.6); Total Protein 4.4 g/dL (6.5-8.0)
--- NOTE | 2025-10-03 18:29 | PC.NURSE ---
Patient critically ill with fluctuating clinical status; Remains unstable and requires close monitoring. Blood pressures remain labile, though have improved with the addition of vasopressin and following earlier blood product administration. Also, following blood products patient hypoxia improved, now requiring 40% and Peep of 5 to maintain sats. Urine output improved with the lasix gtt, now voiding between 15-25cc/hr. PT was anuric at the start of this RN shift. Patient with less bloody secretion inline and orally, however Ostomy changed with 500 of liquid black stool.
[2025-10-03 18:32] LABS: Anion Gap 17 (12-20); Carbon Dioxide 24 mmol/L (22-29); Chloride 114 mmol/L (96-108); Potassium 3.5 mmol/L (3.3-5.1); Sodium 151 mmol/L (135-145)
[2025-10-03] MEDS: Chlorhexidine Gluc Oral Rinse 15 ML MOUTHWASH BUCCAL (21:41)
[2025-10-03] MEDS: Albumin Human 25 % 50 ML 100 ML IV ×2 (21:41→22:16)
[2025-10-03 23:36] LABS: Glucose, Whole Blood 157 mg/dL (60-115)
[2025-10-04] VITALS (69 sets, daily range): BP systolic 84–171; BP diastolic 34–85; PULSE 69–129; RESP 9–26; TEMP 34.3–36.7; O2SAT 91–100; BMI 25.4
[2025-10-04] MEDS: iohexoL 350 MG/ML 100 ML INFUS..BTL 85 ML IV (02:16)
[2025-10-04 05:33] LABS: Glucose, Whole Blood 123 mg/dL (60-115)
--- NOTE | 2025-10-04 05:53 | PC.NURSE ---
Assumed care at 1900. Patient remains?intubated and sedated, propofol gtt running per DEC. RASS -4, patient has absent cough, gag, and very weak pain response. Only grimacing and flexing toes to repeated noxious pain stimuli. Extremities flaccid, does not open eyes or follow commands. SR/ST on tele, HR 60s-100s. Levophed and vasopressin gtts running per DEC. Patient edematous to BLE, 3+/4+ pitting edema. BUE non-pitting and weeping. Patient mechanically ventilated, 7.5 ETT, 21 cm?@ the lip. SCHOOL BUSINESS MANAGER Nathan notified, and RT Carrol advanced ETT to original 23 cm?@ lip. See vent assessment for details. Abdomen soft and round, slightly distended. Ostomy pink and moist, with dark melena liquid stool in bag. Back catheter in place and patent, draining cloudy pale yellow urine, approx 15-60mL/hr. Lasix gtt running per DEC. 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 Diffuse bruising to BUE. Patient repositioned Q2HR, bed locked in lowest position, bed alarm on.?
[2025-10-04 06:06] LABS: VBG HCO3 23 mmol/L (22-26); VBG O2 % Saturation 99.0 %
[2025-10-04 06:17] LABS: Hematocrit 28.0 % (37.0-47.0); Hemoglobin 9.3 g/dl (12.0-16.0); Imm Gran Abs Auto 0.35 X10*3/uL (0.00-0.03); Imm Gran Pct Auto 2.5 % (0.0-0.4); Lymphocytes Absolute Auto 0.4 X10*3/uL (1.2-4.9); MANUAL DIFF FLAG SCAN; Mean Corpuscular HGB Conc 33.2 g/dl (31.0-35.0); Mean Corpuscular Hemoglobin 30.9 pg (27.0-33.0); Mean Corpuscular Volume 93.0 fL (80.0-98.0); NRBC Abs Auto 0.050 X10*3/uL (0.0-0.012); NRBC Pct Auto 0.4 /100WBC (0.0-0.2); Red Blood Count 3.01 X10*6/uL (4.20-5.50); SCAN SMEAR FLAG 1; White Blood Count 14.2 X10*3/uL (4.8-10.8)
[2025-10-04 06:18] LABS: Platelet Count 81 X10*3/uL (160-400)
[2025-10-04 06:36] LABS: Albumin Level 2.7 g/dL (3.5-5.0); Anion Gap 16 (12-20); Blood Urea Nitrogen 71 mg/dL (9-16); Calcium 8.5 mg/dL (8.4-10.2); Carbon Dioxide 22 mmol/L (22-29); Chloride 114 mmol/L (96-108); Creatinine Clr Calc Pharmacy 24.1; Estimated Glomerular Filt Rate 29; Magnesium 1.7 mg/dL (1.6-2.6); Potassium 3.5 mmol/L (3.3-5.1); Sodium 148 mmol/L (135-145)
[2025-10-04 08:11] LABS: Venous Blood Gas Refer to POC result
[2025-10-04] MEDS: 0.9 % Sodium Chloride Flush 3 ML SYRINGE IVFLUSH ×3 (09:31→21:57)
[2025-10-04] MEDS: Chlorhexidine Gluc Oral Rinse 15 ML MOUTHWASH BUCCAL ×3 (09:33→20:15)
[2025-10-04] MEDS: Albumin Human 25 % 100 ML IV ×3 (09:51→20:15)
--- NOTE | 2025-10-04 10:53 | PM.PNGS ---
Subjective Subjective Date of Service: 10/04/25 Interval history: Transferred to ICU over the weekend for GI bleed, hemorrhagic shock. Intubated and on pressors. Made DNR by son. Physical Exam Vital Signs: Vital Signs: Last Vital Signs Temp 97.7 F 10/04/25 08:00 Pulse 116 H 10/04/25 10:05 Resp 19 10/04/25 10:00 BP 110/38 L 10/04/25 10:05 Pulse Ox 93 10/04/25 10:00 O2 Del Method Mechanical Ventil ation 10/04/25 10:00 O2 Flow Rate 40 10/04/25 10:00 FiO2 40 10/04/25 09:00 BMI result Body Mass Index 25.4 Resp: Other: on vent Skin: Other: decubitus ulcer- overall worsening of necrosis of surrounding skin as well as increased slough and necrotic tissue of wound base ; more undermining of wound circumferentially, ulcer does not tunnel into discolored area at wound inferior edge Objective Data Active Medications Chlorhexidine Gluconate (Chlorhexidine Gluc Oral Rinse 15 Ml Mouthwash) 15 ml BUCCAL TID [facility] Last Admin: 10/04/25 09:33 Dose: 15 ml Documented By: JOSE Dextrose (Dextrose 50 % 25 Gm/50 Ml Syringe) 25 gm IVPUSH Q15M PRN; Protocol PRN Reason: per Hypoglycemia Standing Ord. Glucose (Glucose Gel 15 Gm Gel..Gram.) 15 gm PO Q15M PRN; Protocol PRN Reason: per Hypoglycemia Standing Ord. Hydromorphone HCl (Hydromorphone Hcl 1 Mg/Ml Syringe) 1 mg IVPUSH Q2H PRN; Protocol PRN Reason: Pain, Moderate(Pain Scale 4-6) Propofol (Diprivan) 1,000 mg in 100 mls @ 0 mls/hr IVCONT .Q0M [facility]; Protocol Last Admin: 10/04/25 05:08 Dose: 50 mcg/kg/min, 17.82 mls/hr Documented By: RONY Vasopressin (Vasostrict) 20 unit in 100 mls @ 12 mls/hr IVCONT .Q8H20M [facility]; Protocol Last Admin: 10/04/25 01:22 Dose: Not Given Documented By: RONY Non-Admin Reason: Elevated Blood Pressure Norepinephrine Bitartrate (Levophed) 8 mg in 250 mls @ 0 mls/hr IVCONT .Q0M [facility]; Protocol Last Titration: 10/04/25 07:21 Dose: 0.13 mcg/kg/min, 16.09 mls/hr Documented By: JOSE Furosemide 200 mg/ Sodium (Chloride) 100 mls @ 2.5 mls/hr IVCONT .Q24H [facility] Last Admin: 10/03/25 13:31 Dose: 5 mg/hr, 2.5 mls/hr Documented By: JOSE Albumin Human (Kedbumin 25 %) 100 mls @ 100 mls/hr IV Q6H [facility] Stop: 10/05/25 04:14 Last Admin: 10/04/25 09:51 Dose: 100 mls/hr Documented By: JOSE Levofloxacin (Levaquin) 750 mg in 150 mls @ 100 mls/hr IV Q48H [facility] Ampicillin Sodium 2 gm/ Sodium (Chloride) 100 mls @ 200 mls/hr IV Q12H [facility] Insulin Human Lispro (Insulin Lispro 100 Unit/Ml 3 Ml Vial) 0 unit SUBCUT Q6H [facility]; Protocol Last Admin: 10/04/25 05:29 Dose: Not Given Documented By: RONY Non-Admin Reason: No Insulin Coverage Pantoprazole Sodium (Pantoprazole Sodium 40 Mg/10 Ml Vial) 40 mg IVPUSH BID@0630,1630 [facility] Last Admin: 10/04/25 05:30 Dose: 40 mg Documented By: RONY Sodium Chloride (0.9 % Sodium Chloride Flush 3 Ml Syringe) 3 ml IVFLUSH QSHIFT [facility] Last Admin: 10/04/25 09:31 Dose: 3 ml Documented By: JOSE Sodium Hypochlorite (Sodium Hypochlorite 0.125% 473 Ml Solution) 1 appl TOPICAL BID [facility] Last Admin: 10/04/25 09:33 Dose: Not Given Documented By: JOSE Non-Admin Reason: Med Not Available Labs 10/04/25 05:59 10/04/25 05:59 Labs: Laboratory Results - last 24 hr 10/03/25 10/03/25 10/03/25 00:09 11:14 17:43 MCV MCH MCHC RDW Plt Count MPV Immature Gran % (Auto) Neut % (Auto) Lymph % (Auto) [place] % (Auto) Eos % (Auto) Baso % (Auto) Lymph # (Auto) [place] # (Auto) Eos # (Auto) Baso # (Auto) Abs Immat Gran (auto) Absolute Neuts (auto) Absolute Nucleated RBC Nucleated RBC % (auto) Smear Tech's Comments Hold Purple Top VBG pH VBG pCO2 VBG pO2 VBG HCO3 VBG O2 Saturation VBG Base Excess Anion Gap Estim Creat Clear Calc Estimated GFR POC Glucose 191 H 145 H Random Glucose Calcium Phosphorus Magnesium Total Bilirubin AST ALT Alkaline Phosphatase Total Protein Albumin Blood Type B Positive Antibody Screen NEGATIVE Crossmatch See Detail 10/03/25 10/03/25 10/03/25 17:58 18:02 23:32 MCV MCH MCHC RDW Plt Count MPV Immature Gran % (Auto) Neut % (Auto) Lymph % (Auto) [place] % (Auto) Eos % (Auto) Baso % (Auto) Lymph # (Auto) [place] # (Auto) Eos # (Auto) Baso # (Auto) Abs Immat Gran (auto) Absolute Neuts (auto) Absolute Nucleated RBC Nucleated RBC % (auto) Smear Tech's Comments Hold Purple Top SEE NOTE VBG pH 7.46 H VBG pCO2 37 VBG pO2 107 VBG HCO3 26 VBG O2 Saturation 100.0 VBG Base Excess 3.1 Anion Gap 17 Estim Creat Clear Calc 26.1 Estimated GFR 32 POC Glucose 157 H Random Glucose 171 H Calcium 8.5 Phosphorus 2.9 Magnesium 1.7 Total Bilirubin 1.2 H AST 1131 H ALT 423 H Alkaline Phosphatase 178 H Total Protein 4.4 L Albumin 2.7 L Blood Type Antibody Screen Crossmatch 10/04/25 10/04/25 10/04/25 05:29 05:59 06:02 MCV 93.0 MCH 30.9 MCHC 33.2 RDW 18.2 H Plt Count 81 L D MPV 11.4 Immature Gran % (Auto) 2.5 H Neut % (Auto) 90.9 H Lymph % (Auto) 2.7 L [place] % (Auto) 3.0 Eos % (Auto) 0.3 Baso % (Auto) 0.6 Lymph # (Auto) 0.4 L [place] # (Auto) 0.4 Eos # (Auto) 0.0 Baso # (Auto) 0.1 Abs Immat Gran (auto) 0.35 H Absolute Neuts (auto) 12.9 H Absolute Nucleated RBC 0.050 H Nucleated RBC % (auto) 0.4 H Smear Tech's Comments VERIFIED Hold Purple Top VBG pH 7.60 H* VBG pCO2 24 VBG pO2 79 VBG HCO3 23 VBG O2 Saturation 99.0 VBG Base Excess 3.2 Anion Gap 16 Estim Creat Clear Calc 24.1 Estimated GFR 29 POC Glucose 123 H Random Glucose 126 H Calcium 8.5 Phosphorus 2.8 Magnesium 1.7 Total Bilirubin AST ALT Alkaline Phosphatase Total Protein Albumin 2.7 L Blood Type Antibody Screen Crossmatch Procedures Date of Service Date of Service: 10/04/25 Progress Note: A&P Assessment and plan (1) Sacral decubitus ulcer: Status: Acute Plan Unfortunately has had worsening of the decubitus ulcer. She would require extensive surgical debridement at this point and given current guarded clinical status, will hold off. Can continue BID dressing changes with dakins soaked packing, foam pad and supportive measures. Seen with frame gate mortiser operatorAnjelica. Time Spent With Patient Time: Total time managing care of this patient today ____ minutes. Quality Stroke Does the patient have a stroke diagnosis?: No VTE Prior VTE?: No VTE Risk Level:: Medical - moderate - high VTE Device Contraindication: N/A - Device Ordered VTE Drug Contraindication: Treatment Not Tolerated
[2025-10-04] MEDS: Furosemide 200 MG in 0.9 % Sodium Chloride 80 ML IVCONT (11:13)
[2025-10-04 11:31] LABS: Glucose, Whole Blood 145 mg/dL (60-115)
--- NOTE | 2025-10-04 11:40 | MHC.CLN ---
F/U PT TRANSFERRED TO ICU DISCUSSED AT ROUNDS WITH PT IS CURRENTLY NPO INTUBATED AD SEDATED IF TF NEEDED; RECOMMEND VITAL AF 1.2 AT MAX GOAL RATE 45ML/HR WITH 240ML FWF Q 8 HRS TO PROVIDE 1296KCALS (1766KCALS WITH SEDATION; 30KCALS/KG), 81G PROTEIN (1.4G/KG), 1596ML TOTAL FREE WATER FROM FORMULA AND FLUSHES (27ML/KG) MONITOR TOLERANCE AND LYTES FOLLOWING FOR DIET ADVANCEMENT
--- NOTE | 2025-10-04 12:47 | HO.WOUND ---
Wound Consult: Follow up 80 yr old female admitted to [facility] [place] on 09/25/25 - See progress notes and H&P for detailed history. Patient with overall worsened condition, now intubated and on pressors in the ICU. Seen with direct care RN and general surgery PA. Nutrition following. SIPP in Place, CHLOE mattress in use. Surgery saw last week with change to dakins wet to dry for topical treatment. Coccyx 09/27/25 Coccyx 09/28/25 10/04/25 Etiology: coccyx unstageable pressure injury Present on Admission - will stage as a 4 due to bone exposed in base Measurements: 8cm x 5cm x 1cm undermining 12-12, 1cm Wound Bed: moist yellow necrotic tissue- bone palpable in base Drainage / Odor: small leonrad no odor Edges: ? open- advancing edges with area of deep purple/black continues inferiorly - likely related to overall decompensation and use of pressors Anne wound: ? No Induration, Fluctuance or Warmth noted Pain: yes Goals of Treatment: ? Coccyx -Off Load Pressure with Q2 hr turns and use of pillows - Cleanse with NS moist gauze, pat dry. ?Apply thin layer of Triad or barrier cream to wound bed. Apply dakins moist gauze dressing to wound bed cover with foam dressing or ABD pad. Change BID Left heel - Deep tissue pressure injury present on admission - noted on admission assessment as redness - appears as deflating blood blister - foam dressing applied Deep tissue pressure injury: Intact or non intact skin with localized are of non-blanchable deep red, maroon, purple discoloration OR epidermal separation revealing a dark wound bed OR blood filled blister. Pain and temperature changes often precede color changes, can show 48-72 hours later. May resolve without causing ulceration or full thickness skin loss, or it may evolve to reveal actual extent of tissue injury right heel intact pink and blanching- protective foam applied Recommendations: 1. Turn and Reposition every 2 hours and as needed for patient comfort. Use pillows or wedges to support off loading positions. 2. Off Load all bony prominences with use of pillows and heel boots if needed. Apply Preventative foams where needed. 3. Monitor for incontinence and moisture control, use barrier creams when needed for prevention and treatment. 4. Provide adequate and supplemental nutrition. 5. Order or Continue low air loss mattress. 6. When applicable maintain blood glucose levels per Providers order. Coccyx: Off Load Pressure with Q2 hr turns and use of pillows - Cleanse with NS moist gauze, pat dry. ?Apply thin layer of Triad or barrier cream to wound bed. Apply dakins moist gauze dressing to wound bed cover with foam dressing or ABD pad. Change Daily. Bilateral heels: Elevate heels off of bed surface with pillows. Float heels off of pillows. Apply skin prep allow to dry. Apply heel foam dressings, peel back and assess Q shift and change every 5-7 days and PRN. Re-consult wound care Nurse for wound deterioration or wound changes.
--- NOTE | 2025-10-04 14:07 | P.PNCC_ITS ---
Subjective Subjective Date of Service: 10/04/25 Interval History: 80-year-old lady with underlying pulmonary hypertension, Sjogren/crest syndrome, diastolic heart failure, transfusion-dependent MDS, CKD 3, intestinal AV malformations, avascular necrosis, known decubitus ulcer, recurrent pulmonary aspirations admitted on 09/25/2025 with worsening lower extremity edema and treated for congestive heart failure exacerbation with hospital course complicated by hemorrhagic shock secondary to acute GI bleed on 10/02/2025 requiring intubation for airway protection on the background of aspiration of her coffee-ground emesis. Evaluated by gastroenterology service with no plans for acute procedures at this time. Acute bleed resolved with hemoglobin slowly stabilizing. No events overnight. Critical Care Time (minutes): 60 Physical Exam 2 Vital Signs: Vital Signs: Last Vital Signs Temp 97.3 F 10/04/25 12:04 Pulse 121 H 10/04/25 12:04 Resp 16 10/04/25 12:04 BP 117/39 L 10/04/25 12:04 Pulse Ox 93 10/04/25 12:04 O2 Del Method Mechanical Ventil ation 10/04/25 12:04 O2 Flow Rate 40 10/04/25 10:00 FiO2 50 10/04/25 12:04 BMI result Body Mass Index 25.4 Const: General: no acute distress and other (Sedated on ventilatory support) Eyes: Sclerae: sclerae normal EOM: EOMs intact bilaterally Neck: Neck: Yes no lymphadenopathy, Yes trachea midline and Yes supple Resp: Effort & Inspection: normal respiratory effort and no respiratory distress Auscultation: clear to auscultation bilaterally Cardio: Rate: tachycardic Rhythm: regular rhythm Heart sounds: no gallops, no murmurs and no rubs GI: Palpation (GI): Soft to palpation and Other GI palpation findings present ( Nontender) Auscultation: normal bowel sounds Extrem: General: Yes no pedal edema, No clubbing and No cyanosis Objective Data Labs 10/04/25 05:59 10/04/25 05:59 Labs: Laboratory Results - last 24 hr 10/03/25 10/03/25 10/03/25 00:09 17:43 17:58 WBC RBC Hgb Hct MCV MCH MCHC RDW Plt Count MPV Immature Gran % (Auto) Neut % (Auto) Lymph % (Auto) [place] % (Auto) Eos % (Auto) Baso % (Auto) Lymph # (Auto) [place] # (Auto) Eos # (Auto) Baso # (Auto) Abs Immat Gran (auto) Absolute Neuts (auto) Absolute Nucleated RBC Nucleated RBC % (auto) Smear Tech's Comments Hold Purple Top SEE NOTE VBG pH VBG pCO2 VBG pO2 VBG HCO3 VBG O2 Saturation VBG Base Excess Sodium 151 H Potassium 3.5 Chloride 114 H Carbon Dioxide 24 Anion Gap 17 BUN 65 H Creatinine 1.57 H Estim Creat Clear Calc 26.1 Estimated GFR 32 POC Glucose 145 H Random Glucose 171 H Calcium 8.5 Phosphorus 2.9 Magnesium 1.7 Total Bilirubin 1.2 H AST 1131 H ALT 423 H Alkaline Phosphatase 178 H Total Protein 4.4 L Albumin 2.7 L Crossmatch See Detail 10/03/25 10/03/25 10/04/25 18:02 23:32 05:29 WBC RBC Hgb Hct MCV MCH MCHC RDW Plt Count MPV Immature Gran % (Auto) Neut % (Auto) Lymph % (Auto) [place] % (Auto) Eos % (Auto) Baso % (Auto) Lymph # (Auto) [place] # (Auto) Eos # (Auto) Baso # (Auto) Abs Immat Gran (auto) Absolute Neuts (auto) Absolute Nucleated RBC Nucleated RBC % (auto) Smear Tech's Comments Hold Purple Top VBG pH 7.46 H VBG pCO2 37 VBG pO2 107 VBG HCO3 26 VBG O2 Saturation 100.0 VBG Base Excess 3.1 Sodium Potassium Chloride Carbon Dioxide Anion Gap BUN Creatinine Estim Creat Clear Calc Estimated GFR POC Glucose 157 H 123 H Random Glucose Calcium Phosphorus Magnesium Total Bilirubin AST ALT Alkaline Phosphatase Total Protein Albumin Crossmatch 10/04/25 10/04/25 10/04/25 05:59 06:02 11:27 WBC 14.2 H RBC 3.01 L Hgb 9.3 L Hct 28.0 L MCV 93.0 MCH 30.9 MCHC 33.2 RDW 18.2 H Plt Count 81 L D MPV 11.4 Immature Gran % (Auto) 2.5 H Neut % (Auto) 90.9 H Lymph % (Auto) 2.7 L [place] % (Auto) 3.0 Eos % (Auto) 0.3 Baso % (Auto) 0.6 Lymph # (Auto) 0.4 L [place] # (Auto) 0.4 Eos # (Auto) 0.0 Baso # (Auto) 0.1 Abs Immat Gran (auto) 0.35 H Absolute Neuts (auto) 12.9 H Absolute Nucleated RBC 0.050 H Nucleated RBC % (auto) 0.4 H Smear Tech's Comments VERIFIED Hold Purple Top VBG pH 7.60 H* VBG pCO2 24 VBG pO2 79 VBG HCO3 23 VBG O2 Saturation 99.0 VBG Base Excess 3.2 Sodium 148 H Potassium 3.5 Chloride 114 H Carbon Dioxide 22 Anion Gap 16 BUN 71 H Creatinine 1.69 H Estim Creat Clear Calc 24.1 Estimated GFR 29 POC Glucose 145 H Random Glucose 126 H Calcium 8.5 Phosphorus 2.8 Magnesium 1.7 Total Bilirubin AST ALT Alkaline Phosphatase Total Protein Albumin 2.7 L Crossmatch Microbiology Microbiology Results: Microbiology 10/03/25 09:35 Blood - Venous Blood Culture - Preliminary No growth after 24 hours. 10/03/25 09:36 Blood - Venous Blood Culture - Preliminary No growth after 24 hours. 09/25/25 16:55 Blood - Venous Blood Culture - Final No growth after 5 days. 09/25/25 16:57 Blood - Venous Blood Culture - Final No growth after 5 days. 09/25/25 16:43 Sacrum Gram Stain - Final 09/25/25 16:43 Sacrum Routine Culture - Final Pseudomonas aeruginosa Enterococcus faecalis Progress Note: A&P Assessment and plan (1) Decompensated heart failure: Status: Acute (2) Hemorrhagic shock: Status: Acute (3) Sacral decubitus ulcer: Status: Acute (4) Pulmonary aspiration: Status: Acute (5) Upper GI bleed: Status: Acute (6) Sjogren syndrome: Status: Acute (7) CREST (calcinosis, Raynaud's phenomenon, esophageal dysfunction, sclerodactyly, telangiectasia): Status: Acute Plan Assessment: 80-year-old lady with underlying pulmonary hypertension, diastolic heart failure, CKD 3 and CREST/Sjogren's admitted with exacerbation of underlying heart failure further complicated by hemorrhagic shock secondary to upper GI bleed and pulmonary aspirations requiring intubation and ventilatory support. Plan: Neuro: No acute issues. Cardiac: Hemorrhagic shock, resolved. Pulmonary hypertension, unclear whether primary or secondary to underlying heart disease or rheumatologic disease. Pulmonary: Acute hypoxic respiratory failure secondary to pulmonary aspiration of coffee-ground emesis on a background of prior recurrent aspirations. Continue to titrate off ventilatory support as tolerated. Renal: ERIC, likely secondary to shock induced ATN. Oliguric. Continue to monitor renal indices and urine output. Endo: No acute issues. GI: Upper GI bleed likely secondary to underlying known AV malformations. Gastroenterology service care appreciated. No plans for acute interventions. Continue PPI. Shock liver. ID: Decubitus ulcer previously growing pansensitive Enterococcus and Pseudomonas, antibiotics changed to Levaquin and ampicillin. Completed caspofungin for Yumiko esophagitis. Heme/Onc: Acute blood loss anemia secondary to upper GI bleed. Status post valproic resuscitation. Hemoglobin stabilizing. Transfusion threshold of 7. Psych: No acute issues. Miscellaneous: No acute issues. Prophylaxis: Ppi, pneumatic compression Diet: NPO Critical care time spent: 60 minutes Quality Stroke Does the patient have a stroke diagnosis?: No VTE Prior VTE?: No VTE Risk Level:: Medical - moderate - high VTE Device Contraindication: N/A - Device Ordered VTE Drug Contraindication: Treatment Not Tolerated Critical Care Time Critical Care Time (minutes): 60
--- NOTE | 2025-10-04 14:08 | ECG_ITS ---
Test Reason : CP Blood Pressure : */* mmHG Vent. Rate : 126 BPM Atrial Rate : 126 BPM P-R Int : 176 ms QRS Dur : 76 ms QT Int : 322 ms P-R-T Axes : 49 118 92 degrees QTcB Int : 466 ms Sinus tachycardia with Premature supraventricular complexes Left posterior fascicular block Subtle inferior ST elevations with reciprocal changes Abnormal ECG When compared with ECG of 25-Sep-2025 15:51, QRS axis Shifted right Subtle ischemic changes. Referred By: Alexia Narayanan Electronically Signed By: Lonnie Torres
[2025-10-04 15:27] LABS: Hematocrit 31.3 % (37.0-47.0); Hemoglobin 10.4 g/dl (12.0-16.0); Mean Corpuscular HGB Conc 33.2 g/dl (31.0-35.0); Mean Corpuscular Hemoglobin 31.5 pg (27.0-33.0); Mean Corpuscular Volume 94.8 fL (80.0-98.0); NRBC Abs Auto 0.090 X10*3/uL (0.0-0.012); NRBC Pct Auto 0.4 /100WBC (0.0-0.2); Platelet Count 102 X10*3/uL (160-400); Red Blood Count 3.30 X10*6/uL (4.20-5.50); White Blood Count 23.9 X10*3/uL (4.8-10.8)
[2025-10-04 16:31] LABS: Acanthocytes 1+ (0-2) /OIF; Atypical Lymph Absolute Manual 0.2 x10*3/uL; Atypical Lymphs Percent Manual 1 % (0-6); Band Neutrophils Percent 17 % (3-5); Lymphocytes Absolute Manual 0.5 X10*3/uL (1.2-4.9); Lymphocytes Percent Manual 2 % (20-40); Monocytes Absolute Manual 0.2 X10*3/uL (0.1-1.2); Monocytes Percent Manual 1 % (2-11); Neutrophils Absolute Manual 22.9 X10*3/uL (2.0-8.3); Neutrophils Percent Manual 79 % (45-73); RBC Morphology NOTED; Stomatocytes 1+ (5-14) /OIF
[2025-10-04] MEDS: Norepinephrine Bitartrate/NS 32 MG/250 ML PLAST..BAG 18.1 MG IVCONT (16:50)
[2025-10-04 18:13] LABS: Glucose, Whole Blood 163 mg/dL (60-115)
--- NOTE | 2025-10-04 18:30 | PC.NURSE ---
Assumed care at 1600- pt. remains intubated and sedated, propofol gtt per MAR. Pt. transitioned to high concentration levophed gtt per MAR- titratating levo to SBP goal of >100 per MD. Pt. tolerating PSV vent settings- see vent assessment. OGT in place, to LIWS with no output. Ostomy with minimal dark brown liquid output. Back in place, pt. anuric- MD aware. Q2 oral care and repositioning performed. Family updated by MD. Plan of care ongoing.
[2025-10-04] MEDS: Vasopressin 20 UNIT/100 ML INFUS..BTL 12 UNIT IVCONT (19:39)
[2025-10-05] VITALS (48 sets, daily range): BP systolic 89–175; BP diastolic 33–60; PULSE 107–124; RESP 8–21; TEMP 34.5–37; O2SAT 88–96; BMI 25.2
[2025-10-05 00:12] LABS: Glucose, Whole Blood 114 mg/dL (60-115)
[2025-10-05] MEDS: Albumin Human 25 % 100 ML IV ×4 (02:08→20:15)
[2025-10-05 05:35] LABS: VBG HCO3 24 mmol/L (22-26); VBG O2 % Saturation 96.0 %
[2025-10-05 05:37] LABS: Hematocrit 25.4 % (37.0-47.0); Hemoglobin 8.2 g/dl (12.0-16.0); Mean Corpuscular HGB Conc 32.3 g/dl (31.0-35.0); Mean Corpuscular Hemoglobin 30.7 pg (27.0-33.0); Mean Corpuscular Volume 95.1 fL (80.0-98.0); NRBC Abs Auto 0.050 X10*3/uL (0.0-0.012); NRBC Pct Auto 0.3 /100WBC (0.0-0.2); Red Blood Count 2.67 X10*6/uL (4.20-5.50); White Blood Count 14.9 X10*3/uL (4.8-10.8)
[2025-10-05 05:42] LABS: Platelet Count 72 X10*3/uL (160-400)
[2025-10-05 05:52] LABS: Alanine Aminotransferase 173 U/L (0-31); Albumin Level 3.5 g/dL (3.5-5.0); Alkaline Phosphatase 136 U/L (39-117); Anion Gap 17 (12-20); Aspartate Amino Transferase 199 U/L (5-31); Blood Urea Nitrogen 74 mg/dL (9-16); Calcium 8.6 mg/dL (8.4-10.2); Carbon Dioxide 22 mmol/L (22-29); Chloride 110 mmol/L (96-108); Creatinine Clr Calc Pharmacy 20.1; Estimated Glomerular Filt Rate 24; Magnesium 1.6 mg/dL (1.6-2.6); Potassium 3.4 mmol/L (3.3-5.1); Sodium 146 mmol/L (135-145); Total Protein 5.1 g/dL (6.5-8.0)
[2025-10-05 06:07] LABS: Band Neutrophils Percent 14 % (3-5); Lymphocytes Absolute Manual 0.3 X10*3/uL (1.2-4.9); Lymphocytes Percent Manual 2 % (20-40); Monocytes Absolute Manual 0.4 X10*3/uL (0.1-1.2); Monocytes Percent Manual 3 % (2-11); Neutrophils Absolute Manual 14.2 X10*3/uL (2.0-8.3); Neutrophils Percent Manual 81 % (45-73)
[2025-10-05 06:08] LABS: Large Platelet PRESENT; RBC Morphology NOTED
[2025-10-05 06:09] LABS: Burr Cells 1+ (0-2) /OIF; Ovalocytes 1+ (5-14) /OIF
[2025-10-05 06:10] LABS: Polychromasia 1+ (0-2) /OIF
[2025-10-05 06:11] LABS: Acanthocytes 1+ (0-2) /OIF
--- NOTE | 2025-10-05 06:20 | PC.NURSE ---
Assumed care 1899 - pt remains intubated and sedated. Propofol infusing per DEC. Placed on ACVC settings by RT - see vent assessment. ST on tele, HR 100-120s. MAP < 65, Levophed titrated for systolic BP > 100 per LITIGATION MANAGER Mariama.?Vasopressin added to keep Systolic BP >100. Pt became hypertensive - Vasopressin paused per LITIGATION MANAGER - see DEC. Back in place, low urine output - see I&O flowsheet. OGT to low intermittent wall suction, small amount of dark brown gastric?secretions. Ostomy draining dark brown liquid stool. Pt with generalized weeping, pitting edema. Pressure injury to coccyx, dsg changed per wound care order?- see wound assessment. Temp 96.3 - wilton hickey applied. Hygiene?provided, repositioned?Q2H.?
[2025-10-05 07:10] LABS: Venous Blood Gas Refer to POC result
[2025-10-05] MEDS: 0.9 % Sodium Chloride Flush 3 ML SYRINGE IVFLUSH ×3 (07:46→21:13)
[2025-10-05] MEDS: Chlorhexidine Gluc Oral Rinse 15 ML MOUTHWASH BUCCAL ×3 (07:46→20:03)
[2025-10-05] MEDS: Magnesium Sulfate/H2O 2 GM/50 ML PIGGYBACK IV (09:36)
[2025-10-05] MEDS: Potassium Chloride Packet 20 MEQ PACKET 40 MEQ OG-TUBE (09:39)
--- NOTE | 2025-10-05 10:02 | P.PNCC_ITS ---
Subjective Subjective Date of Service: 10/05/25 Interval History: 80-year-old lady with underlying pulmonary hypertension, Sjogren/crest syndrome, diastolic heart failure, transfusion-dependent MDS, CKD 3, intestinal AV malformations, avascular necrosis, known decubitus ulcer, recurrent pulmonary aspirations admitted on 09/25/2025 with worsening lower extremity edema and treated for congestive heart failure exacerbation with hospital course complicated by hemorrhagic shock secondary to acute GI bleed on 10/02/2025 requiring intubation for airway protection on the background of aspiration of her coffee-ground emesis. Evaluated by gastroenterology service with no plans for acute procedures at this time. Acute bleed resolved with hemoglobin slowly stabilizing. No events overnight. Pressor requirements are improving. Critical Care Time (minutes): 0 Physical Exam 2 Vital Signs: Vital Signs: Last Vital Signs Temp 98.1 F 10/05/25 09:00 Pulse 118 H 10/05/25 09:00 Resp 14 10/05/25 09:00 BP 115/57 L 10/05/25 09:00 Pulse Ox 91 L 10/05/25 09:00 O2 Del Method Mechanical Ventil ation 10/05/25 09:00 O2 Flow Rate 40 10/04/25 10:00 FiO2 40 10/05/25 09:00 BMI result Body Mass Index 25.2 Const: General: no acute distress and other (Sedated on ventilatory support) Nutritional Appearance: Edematous Eyes: Sclerae: sclerae normal EOM: EOMs intact bilaterally Neck: Neck: Yes no lymphadenopathy, Yes trachea midline and Yes supple Resp: Auscultation: crackles (Bilateral) Cardio: Rate: tachycardic Rhythm: regular rhythm Heart sounds: no gallops, no murmurs and no rubs GI: Other: Ostomy with output Palpation (GI): Soft to palpation and Other GI palpation findings present ( Nontender) Auscultation: normal bowel sounds Extrem: General: No clubbing, No cyanosis and Yes edema (2+ bilateral) Objective Data Labs 10/05/25 05:28 10/05/25 05:28 Labs: Laboratory Results - last 24 hr 10/04/25 10/04/25 10/04/25 11:27 14:56 18:06 WBC 23.9 H RBC 3.30 L Hgb 10.4 L Hct 31.3 L MCV 94.8 MCH 31.5 MCHC 33.2 RDW 19.0 H Plt Count 102 L D MPV 11.2 Immature Gran % (Auto) Cancelled Neut % (Auto) Cancelled Lymph % (Auto) Cancelled [place] % (Auto) Cancelled Eos % (Auto) Cancelled Baso % (Auto) Cancelled Lymph # (Auto) Cancelled [place] # (Auto) Cancelled Eos # (Auto) Cancelled Baso # (Auto) Cancelled Abs Immat Gran (auto) Cancelled Absolute Neuts (auto) Cancelled Absolute Nucleated RBC 0.090 H Nucleated RBC % (auto) 0.4 H Neutrophils % (Manual) 79 H Band Neutrophils % 17 H Lymphocytes % (Manual) 2 L Atypical Lymphs % (Man) 1 Monocytes % (Manual) 1 L Abs Neuts (Manual) 22.9 H Lymphocytes # (Manual) 0.5 L Atyp Lymphs # (Manual) 0.2 Monocytes # (Manual) 0.2 Platelet Estimate DECREASED Large Platelets Plt Morphology Comment NORMAL RBC Morphology NOTED Polychromasia Ovalocytes Stomatocytes 1+ (5-14) [place] Cells Acanthocytes (Spur) 1+ (0-2) VBG pH VBG pCO2 VBG pO2 VBG HCO3 VBG O2 Saturation VBG Base Excess Sodium Potassium Chloride Carbon Dioxide Anion Gap BUN Creatinine Estim Creat Clear Calc Estimated GFR POC Glucose 145 H 163 H Random Glucose Calcium Phosphorus Magnesium Total Bilirubin AST ALT Alkaline Phosphatase Total Protein Albumin 10/05/25 10/05/25 10/05/25 00:08 05:28 05:31 WBC 14.9 H RBC 2.67 L Hgb 8.2 L D Hct 25.4 L MCV 95.1 MCH 30.7 MCHC 32.3 RDW 18.6 H Plt Count 72 L D MPV 11.0 Immature Gran % (Auto) Cancelled Neut % (Auto) Cancelled Lymph % (Auto) Cancelled [place] % (Auto) Cancelled Eos % (Auto) Cancelled Baso % (Auto) Cancelled Lymph # (Auto) Cancelled [place] # (Auto) Cancelled Eos # (Auto) Cancelled Baso # (Auto) Cancelled Abs Immat Gran (auto) Cancelled Absolute Neuts (auto) Cancelled Absolute Nucleated RBC 0.050 H Nucleated RBC % (auto) 0.3 H Neutrophils % (Manual) 81 H Band Neutrophils % 14 H Lymphocytes % (Manual) 2 L Atypical Lymphs % (Man) Monocytes % (Manual) 3 Abs Neuts (Manual) 14.2 H Lymphocytes # (Manual) 0.3 L Atyp Lymphs # (Manual) Monocytes # (Manual) 0.4 Platelet Estimate DECREASED Large Platelets PRESENT Plt Morphology Comment NOTED RBC Morphology NOTED Polychromasia 1+ (0-2) Ovalocytes 1+ (5-14) Stomatocytes [place] Cells 1+ (0-2) Acanthocytes (Sp[place]) 1+ (0-2) VBG pH 7.45 H VBG pCO2 34 VBG pO2 74 VBG HCO3 24 VBG O2 Saturation 96.0 VBG Base Excess 0.7 Sodium 146 H Potassium 3.4 Chloride 110 H Carbon Dioxide 22 Anion Gap 17 BUN 74 H Creatinine 2.02 H Estim Creat Clear Calc 20.1 Estimated GFR 24 POC Glucose 114 Random Glucose 92 Calcium 8.6 Phosphorus 3.5 Magnesium 1.6 Total Bilirubin 1.1 H AST 199 H ALT 173 H Alkaline Phosphatase 136 H Total Protein 5.1 L Albumin 3.5 Microbiology Microbiology Results: Microbiology 10/03/25 09:35 Blood - Venous Blood Culture - Preliminary No growth after 24 hours. 10/03/25 09:36 Blood - Venous Blood Culture - Preliminary No growth after 24 hours. 09/25/25 16:55 Blood - Venous Blood Culture - Final No growth after 5 days. 09/25/25 16:57 Blood - Venous Blood Culture - Final No growth after 5 days. 09/25/25 16:43 Sacrum Gram Stain - Final 09/25/25 16:43 Sacrum Routine Culture - Final Pseudomonas aeruginosa Enterococcus faecalis Progress Note: A&P Assessment and plan (1) CHF (congestive heart failure): Status: Acute (2) Upper GI bleed: Status: Acute (3) Sjogren syndrome: Status: Acute (4) CREST (calcinosis, Raynaud's phenomenon, esophageal dysfunction, sclerodactyly, telangiectasia): Status: Acute (5) Sacral decubitus ulcer: Status: Acute (6) Pulmonary aspiration: Status: Acute (7) Acute renal failure: Status: Acute Plan Assessment: 80-year-old lady with underlying pulmonary hypertension, diastolic heart failure, CKD 3 and CREST/Sjogren's admitted with exacerbation of underlying heart failure further complicated by hemorrhagic shock secondary to upper GI bleed and pulmonary aspirations requiring intubation and ventilatory support. Plan: Neuro: No acute issues. Cardiac: Hemorrhagic shock, improving, continue to titrate off pressor support as tolerated. Pulmonary hypertension, unclear whether primary or secondary to underlying heart disease or rheumatologic disease. Pulmonary: Acute hypoxic respiratory failure secondary to pulmonary aspiration of coffee-ground emesis on a background of prior recurrent aspirations. Continue to titrate off ventilatory support as tolerated. Renal: ERIC, likely secondary to shock induced ATN. Oliguric. Continue to monitor renal indices and urine output. Endo: No acute issues. GI: Upper GI bleed likely secondary to underlying known AV malformations. Gastroenterology service care appreciated. No plans for acute interventions. Continue PPI. Shock liver improving. ID: Decubitus ulcer previously growing pansensitive Enterococcus and Pseudomonas, continue Levaquin and ampicillin. Completed caspofungin for Yumiko esophagitis. Heme/Onc: Acute blood loss anemia secondary to upper GI bleed. Status post blood product resuscitation. Hemoglobin stabilizing. Transfusion threshold of 7. Psych: No acute issues. Miscellaneous: No acute issues. Prophylaxis: Ppi, pneumatic compression Diet: NPO Critical care time spent: 60 minutes Quality Stroke Does the patient have a stroke diagnosis?: No VTE Prior VTE?: No VTE Risk Level:: Medical - moderate - high VTE Device Contraindication: N/A - Device Ordered VTE Drug Contraindication: Treatment Not Tolerated
[2025-10-05] MEDS: Norepinephrine Bitartrate/NS 32 MG/250 ML PLAST..BAG 8.08 MG IVCONT (11:14)
[2025-10-05 12:28] LABS: Glucose, Whole Blood 83 mg/dL (60-115)
--- NOTE | 2025-10-05 17:04 | PC.NURSE ---
Assumed care for pt at 0700, pt remains intubated and sedated, propofol gtt per DEC. Titratating levo to SBP goal of >100 per MD. Pt. tolerating PSV vent settings- see vent assessment. OGT in place clamped at this time. Ostomy with minimal dark brown liquid output. Back in place, 0-5cc an hour- MD aware. Pt with anasarca, weeping to bilateral upper extremities. Pressure injury to coccyx changed per wound care order. Pt had a temp of 96.4, placed on barehugger temporarily. Q2 oral care and repositioning performed. Plan of care ongoing.
[2025-10-05 17:09] LABS: Glucose, Whole Blood 87 mg/dL (60-115)
[2025-10-05 20:39] LABS: Anion Gap 18 (12-20); Blood Urea Nitrogen 75 mg/dL (9-16); Calcium 9.0 mg/dL (8.4-10.2); Carbon Dioxide 21 mmol/L (22-29); Chloride 111 mmol/L (96-108); Creatinine Clr Calc Pharmacy 17.5; Estimated Glomerular Filt Rate 20; Magnesium 1.9 mg/dL (1.6-2.6); Potassium 4.1 mmol/L (3.3-5.1); Sodium 146 mmol/L (135-145)
[2025-10-05 23:48] LABS: Glucose, Whole Blood 69 mg/dL (60-115)
[2025-10-06] VITALS (45 sets, daily range): BP systolic 106–160; BP diastolic 38–61; PULSE 88–111; RESP 11–39; TEMP 34.7–36.5; O2SAT 91–100; BMI 25.6
[2025-10-06] MEDS: Albumin Human 25 % 100 ML IV (02:39)
[2025-10-06 03:21] LABS: Glucose, Whole Blood 64 mg/dL (60-115)
[2025-10-06] MEDS: Dextrose 10 % 1,000 ML 50 ML IVCONT ×2 (03:27→21:35)
[2025-10-06 05:18] LABS: VBG HCO3 19 mmol/L (22-26); VBG O2 % Saturation 93.0 %
[2025-10-06 05:28] LABS: Hematocrit 24.7 % (37.0-47.0); Hemoglobin 7.7 g/dl (12.0-16.0); Imm Gran Abs Auto 0.15 X10*3/uL (0.00-0.03); Imm Gran Pct Auto 1.0 % (0.0-0.4); Lymphocytes Absolute Auto 0.3 X10*3/uL (1.2-4.9); MANUAL DIFF FLAG SCAN; Mean Corpuscular HGB Conc 31.2 g/dl (31.0-35.0); Mean Corpuscular Hemoglobin 30.4 pg (27.0-33.0); Mean Corpuscular Volume 97.6 fL (80.0-98.0); NRBC Abs Auto 0.050 X10*3/uL (0.0-0.012); NRBC Pct Auto 0.3 /100WBC (0.0-0.2); Red Blood Count 2.53 X10*6/uL (4.20-5.50); SCAN SMEAR FLAG 1; White Blood Count 14.4 X10*3/uL (4.8-10.8)
[2025-10-06 05:38] LABS: Platelet Count 51 X10*3/uL (160-400)
[2025-10-06 05:50] LABS: Alanine Aminotransferase 111 U/L (0-31); Albumin Level 4.0 g/dL (3.5-5.0); Alkaline Phosphatase 139 U/L (39-117); Anion Gap 23 (12-20); Aspartate Amino Transferase 102 U/L (5-31); Blood Urea Nitrogen 76 mg/dL (9-16); Calcium 9.1 mg/dL (8.4-10.2); Carbon Dioxide 18 mmol/L (22-29); Chloride 109 mmol/L (96-108); Creatinine Clr Calc Pharmacy 16.7; Estimated Glomerular Filt Rate 19; Magnesium 2.0 mg/dL (1.6-2.6); Potassium 3.7 mmol/L (3.3-5.1); Sodium 146 mmol/L (135-145); Total Protein 5.5 g/dL (6.5-8.0)
--- NOTE | 2025-10-06 06:11 | PC.NURSE ---
Assumed care at 1900. Patient remains?intubated and sedated, propofol gtt running per DEC. RASS -4, patient has absent cough, gag, and very weak pain response. Extremities flaccid, no eye opening or following commands. ST on tele, HR 100s-110s. 4x concentrated LEvo running per DEC for SBP goal >100 per provider. Patient profoundly edematous to BUE, deep red and weeping. Edema to bilateral hips and thighs, pitting and weeping. Patient mechanically ventilated, 7.5 ETT, 22 cm?@ the lip. Lung sounds rhonchorous and fine crackles to bases. Abdomen large and round, distended but soft. Ostomy pink and moist, scant amount of dark brown liquid stool noted. D10 started at 50mL/.hr per GEOPHYSICAL MANAGER r/t low POCs and infusing per DEC. Back catheter in place draining cloudy yellow urine, approx 10-40mL/hr, GEOPHYSICAL MANAGER Mariama aware. Skin andres, flushed and edematous. Chronic DTI to left heel elevated off bed and open to air. Stage IV pressure injury to coccyx cleansed with saline, dakins-soaked gauze?applied and covered with pink foam. [place] applied to roxanna-wound area. Patient?repositioned Q2HR, bed locked in lowest position, bed alarm on.?
[2025-10-06] MEDS: Chlorhexidine Gluc Oral Rinse 15 ML MOUTHWASH BUCCAL ×3 (08:23→20:31)
[2025-10-06] MEDS: 0.9 % Sodium Chloride Flush 3 ML SYRINGE IVFLUSH ×3 (08:23→21:36)
--- NOTE | 2025-10-06 10:00 | P.PNCC_ITS ---
Subjective Subjective Date of Service: 10/06/25 Interval History: 80-year-old lady with underlying pulmonary hypertension, Sjogren/crest syndrome, diastolic heart failure, transfusion-dependent MDS, CKD 3, intestinal AV malformations, avascular necrosis, known decubitus ulcer, recurrent pulmonary aspirations admitted on 09/25/2025 with worsening lower extremity edema and treated for congestive heart failure exacerbation with hospital course complicated by hemorrhagic shock secondary to acute GI bleed on 10/02/2025 requiring intubation for airway protection on the background of aspiration of her coffee-ground emesis. Evaluated by gastroenterology service with no plans for acute procedures at this time. Acute bleed resolved with hemoglobin slowly stabilizing. No events overnight. Pressor requirements continue to improve. Critical Care Time (minutes): 60 Physical Exam 2 Vital Signs: Vital Signs: Last Vital Signs Temp 97.2 F 10/06/25 09:00 Pulse 109 H 10/06/25 09:50 Resp 14 10/06/25 09:00 BP 142/58 H 10/06/25 09:50 Pulse Ox 96 10/06/25 09:00 O2 Del Method Mechanical Ventil ation 10/06/25 09:00 O2 Flow Rate 40 10/04/25 10:00 FiO2 40 10/06/25 09:00 BMI result Body Mass Index 25.6 Const: General: no acute distress and other (Poor arousal with sedation vacation) Eyes: Sclerae: sclerae normal EOM: EOMs intact bilaterally Neck: Neck: Yes no lymphadenopathy, Yes trachea midline and Yes supple Resp: Effort & Inspection: normal respiratory effort and no respiratory distress Auscultation: clear to auscultation bilaterally Cardio: Rate: tachycardic Rhythm: regular rhythm Heart sounds: no gallops, no murmurs and no rubs GI: Other: Ostomy with output Palpation (GI): Soft to palpation and Other GI palpation findings present ( Nontender) Auscultation: normal bowel sounds Extrem: General: Yes no pedal edema, No clubbing and No cyanosis Objective Data Labs 10/06/25 05:09 10/06/25 05:09 Labs: Laboratory Results - last 24 hr 10/05/25 10/05/25 10/05/25 12:21 17:03 20:07 WBC RBC Hgb Hct MCV MCH MCHC RDW Plt Count MPV Immature Gran % (Auto) Neut % (Auto) Lymph % (Auto) [place] % (Auto) Eos % (Auto) Baso % (Auto) Lymph # (Auto) [place] # (Auto) Eos # (Auto) Baso # (Auto) Abs Immat Gran (auto) Absolute Neuts (auto) Absolute Nucleated RBC Nucleated RBC % (auto) Smear Tech's Comments VBG pH VBG pCO2 VBG pO2 VBG HCO3 VBG O2 Saturation VBG Base Excess Sodium 146 H Potassium 4.1 D Chloride 111 H Carbon Dioxide 21 L Anion Gap 18 BUN 75 H Creatinine 2.31 H Estim Creat Clear Calc 17.5 Estimated GFR 20 POC Glucose 83 87 Random Glucose 75 Calcium 9.0 Phosphorus 4.0 Magnesium 1.9 Total Bilirubin AST ALT Alkaline Phosphatase Total Protein Albumin 10/05/25 10/06/25 10/06/25 23:45 03:15 05:09 WBC 14.4 H RBC 2.53 L Hgb 7.7 L Hct 24.7 L MCV 97.6 MCH 30.4 MCHC 31.2 RDW 19.5 H Plt Count 51 L D MPV 12.1 Immature Gran % (Auto) 1.0 H Neut % (Auto) 93.2 H Lymph % (Auto) 1.9 L [place] % (Auto) 3.7 Eos % (Auto) 0.0 Baso % (Auto) 0.2 Lymph # (Auto) 0.3 L [place] # (Auto) 0.5 Eos # (Auto) 0.0 Baso # (Auto) 0.0 Abs Immat Gran (auto) 0.15 H Absolute Neuts (auto) 13.4 H Absolute Nucleated RBC 0.050 H Nucleated RBC % (auto) 0.3 H Smear Tech's Comments VERIFIED VBG pH VBG pCO2 VBG pO2 VBG HCO3 VBG O2 Saturation VBG Base Excess Sodium 146 H Potassium 3.7 Chloride 109 H Carbon Dioxide 18 L Anion Gap 23 H BUN 76 H Creatinine 2.44 H Estim Creat Clear Calc 16.7 Estimated GFR 19 POC Glucose 69 64 Random Glucose 91 Calcium 9.1 Phosphorus 3.9 Magnesium 2.0 Total Bilirubin 1.3 H AST 102 H ALT 111 H Alkaline Phosphatase 139 H Total Protein 5.5 L Albumin 4.0 10/06/25 05:14 WBC RBC Hgb Hct MCV MCH MCHC RDW Plt Count MPV Immature Gran % (Auto) Neut % (Auto) Lymph % (Auto) [place] % (Auto) Eos % (Auto) Baso % (Auto) Lymph # (Auto) [place] # (Auto) Eos # (Auto) Baso # (Auto) Abs Immat Gran (auto) Absolute Neuts (auto) Absolute Nucleated RBC Nucleated RBC % (auto) Smear Tech's Comments VBG pH 7.45 H VBG pCO2 27 VBG pO2 62 VBG HCO3 19 L VBG O2 Saturation 93.0 VBG Base Excess -3.9 Sodium Potassium Chloride Carbon Dioxide Anion Gap BUN Creatinine Estim Creat Clear Calc Estimated GFR POC Glucose Random Glucose Calcium Phosphorus Magnesium Total Bilirubin AST ALT Alkaline Phosphatase Total Protein Albumin Microbiology Microbiology Results: Microbiology 10/03/25 09:35 Blood - Venous Blood Culture - Preliminary No growth after 48 hours. 10/03/25 09:36 Blood - Venous Blood Culture - Preliminary No growth after 48 hours. 09/25/25 16:55 Blood - Venous Blood Culture - Final No growth after 5 days. 09/25/25 16:57 Blood - Venous Blood Culture - Final No growth after 5 days. 09/25/25 16:43 Sacrum Gram Stain - Final 09/25/25 16:43 Sacrum Routine Culture - Final Pseudomonas aeruginosa Enterococcus faecalis Progress Note: A&P Assessment and plan (1) CHF (congestive heart failure): Status: Acute (2) Hemorrhagic shock: Status: Acute (3) Upper GI bleed: Status: Acute (4) Acute renal failure: Status: Acute (5) Sjogren syndrome: Status: Acute (6) CREST (calcinosis, Raynaud's phenomenon, esophageal dysfunction, sclerodactyly, telangiectasia): Status: Acute (7) Sacral decubitus ulcer: Status: Acute (8) Pulmonary aspiration: Status: Acute Plan Assessment: 80-year-old lady with underlying pulmonary hypertension, diastolic heart failure, CKD 3 and CREST/Sjogren's admitted with exacerbation of underlying heart failure further complicated by hemorrhagic shock secondary to upper GI bleed and pulmonary aspirations requiring intubation and ventilatory support. Plan: Neuro: No acute issues. Cardiac: Pressor requirements continue to improve. Pulmonary hypertension, unclear whether primary or secondary to underlying heart disease or rheumatologic disease. Pulmonary: Acute hypoxic respiratory failure secondary to pulmonary aspiration of coffee-ground emesis on a background of prior recurrent aspirations. Continue to titrate off ventilatory support as tolerated. Renal: ERIC, likely secondary to shock induced ATN. Oliguric. Continue to monitor renal indices and urine output. Endo: No acute issues. GI: Upper GI bleed likely secondary to underlying known AV malformations. Gastroenterology service care appreciated. No plans for acute interventions. Continue PPI. Shock liver improving. ID: Decubitus ulcer previously growing pansensitive Enterococcus and Pseudomonas, continue Levaquin and ampicillin. Completed caspofungin for Yumiko esophagitis. Heme/Onc: Acute blood loss anemia secondary to upper GI bleed. Status post blood product resuscitation. Hemoglobin stabilizing. Transfusion threshold of 7. Psych: No acute issues. Miscellaneous: No acute issues. Prophylaxis: Ppi, pneumatic compression Diet: Tube feeds Critical care time spent: 60 minutes Quality Stroke Does the patient have a stroke diagnosis?: No VTE Prior VTE?: No VTE Risk Level:: Medical - moderate - high VTE Device Contraindication: N/A - Device Ordered VTE Drug Contraindication: Treatment Not Tolerated
[2025-10-06 10:33] LABS: Venous Blood Gas Refer to POC result
--- NOTE | 2025-10-06 10:40 | MHC.CLN ---
F/U DISCUSSED AT ROUNDS WITH MD-PLAN TO START TRICKLE FEEDS RECOMMEND NEPRO AT 10ML/HR TO PROVIDE 432KCALS, 19G PROTEIN, 175ML TOTAL FREE WATER FROM FORMULA MONITOR TOLERANCE AND LYTES
[2025-10-06] MEDS: Norepinephrine Bitartrate/NS 32 MG/250 ML PLAST..BAG 3.62 MG IVCONT (12:03)
[2025-10-06 12:22] LABS: Glucose, Whole Blood 98 mg/dL (60-115)
--- NOTE | 2025-10-06 14:21 | MHC.CM.PN ---
PT REMAINS IN ICU ON VENTILATORY /PRESSOR SUPPORT. CM WILL FOLLOW ALONG FOR DC PLAN.
[2025-10-06 18:30] LABS: Glucose, Whole Blood 101 mg/dL (60-115)
--- NOTE | 2025-10-06 19:12 | PC.NURSE ---
Patient Obtunded, responds to painful stimuli only, fluttered eyes x2 this shift but unable to follow commands, Placed on PSV this morning 5/5 and increased to 8/5 this afternoon for required more support to maintain O2 sat. patient not tolerating movement well, decreased turning to pillows instead of wedges due to asynchrony and desating, tubefeeds initiated as ordered and running at goal of 10, titrated Levophed off at 1630.
[2025-10-06 20:54] LABS: Anion Gap 17 (12-20); Blood Urea Nitrogen 77 mg/dL (9-16); Calcium 8.8 mg/dL (8.4-10.2); Carbon Dioxide 21 mmol/L (22-29); Chloride 110 mmol/L (96-108); Creatinine Clr Calc Pharmacy 15.6; Estimated Glomerular Filt Rate 18; Magnesium 1.7 mg/dL (1.6-2.6); Potassium 3.3 mmol/L (3.3-5.1); Sodium 145 mmol/L (135-145)
[2025-10-06] MEDS: Potassium Chloride Packet 20 MEQ PACKET 60 MEQ PO (22:38)
[2025-10-07] VITALS (41 sets, daily range): BP systolic 79–162; BP diastolic 29–83; PULSE 79–129; RESP 12–23; TEMP 35–37.6; O2SAT 79–100; BMI 26.4
[2025-10-07 00:25] LABS: Glucose, Whole Blood 190 mg/dL (60-115)
--- NOTE | 2025-10-07 02:53 | HO.SKINPHOTO ---
Location: Sacrum/right lower buttock Category: Pressure injury. Stage: Stage I
[2025-10-07 05:18] LABS: VBG HCO3 21 mmol/L (22-26); VBG O2 % Saturation 84.0 %
[2025-10-07 05:19] LABS: Venous Blood Gas Refer to POC result
[2025-10-07 05:24] LABS: Hematocrit 24.2 % (37.0-47.0); Hemoglobin 7.7 g/dl (12.0-16.0); Imm Gran Abs Auto 0.10 X10*3/uL (0.00-0.03); Imm Gran Pct Auto 1.3 % (0.0-0.4); Lymphocytes Absolute Auto 0.2 X10*3/uL (1.2-4.9); Mean Corpuscular HGB Conc 31.8 g/dl (31.0-35.0); Mean Corpuscular Hemoglobin 30.8 pg (27.0-33.0); Mean Corpuscular Volume 96.8 fL (80.0-98.0); NRBC Abs Auto 0.000 X10*3/uL (0.0-0.012); NRBC Pct Auto 0.0 /100WBC (0.0-0.2); Red Blood Count 2.50 X10*6/uL (4.20-5.50); SCAN SMEAR FLAG 1; White Blood Count 7.4 X10*3/uL (4.8-10.8)
[2025-10-07 05:25] LABS: MANUAL DIFF FLAG SCAN; Platelet Count 26 X10*3/uL (160-400)
[2025-10-07 05:45] LABS: Alanine Aminotransferase 83 U/L (0-31); Albumin Level 3.0 g/dL (3.5-5.0); Alkaline Phosphatase 185 U/L (39-117); Anion Gap 17 (12-20); Aspartate Amino Transferase 57 U/L (5-31); Blood Urea Nitrogen 77 mg/dL (9-16); Calcium 8.6 mg/dL (8.4-10.2); Carbon Dioxide 20 mmol/L (22-29); Chloride 111 mmol/L (96-108); Creatinine Clr Calc Pharmacy 15.6; Estimated Glomerular Filt Rate 18; Magnesium 2.1 mg/dL (1.6-2.6); Potassium 4.1 mmol/L (3.3-5.1); Sodium 144 mmol/L (135-145); Total Protein 4.8 g/dL (6.5-8.0)
[2025-10-07] MEDS: Norepinephrine Bitartrate/NS 32 MG/250 ML PLAST..BAG IVCONT (06:34)
--- NOTE | 2025-10-07 07:22 | PC.NURSE ---
Assumed care at 1900. Patient continues on mechanical ventilation. No sedation running, slight improvement in neuro status. Patient attempts to open eyes to voice, unable to track speaker or follow commands. Cough and gag remain absent. Patient now grimaces with oral care. SR/ST on tele, depending on amount of stimulation. Remains edematous, deep red/purple and pitting with weeping to BUE, pitting to bilateral thighs. Patient still intubated with 7.5 ETT, 22cm at the lip. Lung sounds rhonchorous to upper lobes and fine crackles to lower lobes. Scant in-line secretions, see vent assessment. Abdomen large and round, slightly distended. TF infusing at goal without issue. Bowel sounds active x4, D10 paused per DHAVAL Leslie r/t high POC. Back catheter draining cloudy yellow urine, approx 10-40mL/hr. Skin remains reddened and edematous. 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 Triad applied to roxanna-wound?area. New open area noted and updated photo uploaded, see skin notes. Patient repositioned Q2HR, bed locked in lowest position, bed alarm on. Electrolytes replaced per DEC, DHAVAL Leslie notified of all critical labs and values. See flowsheet for additional details.? Approx 0630 Patient with repeated low BPs, 4x concentrated levophed gtt restarted and titrated per DEC.
[2025-10-07] MEDS: Chlorhexidine Gluc Oral Rinse 15 ML MOUTHWASH BUCCAL ×3 (08:52→20:05)
[2025-10-07] MEDS: Albumin Human 25 % 100 ML IV ×3 (08:52→20:06)
[2025-10-07] MEDS: 0.9 % Sodium Chloride Flush 3 ML SYRINGE IVFLUSH ×3 (08:53→23:57)
--- NOTE | 2025-10-07 09:57 | MHC.CM.PN ---
Pt w/fragile status: multiple comorbid conditions and complications: anasarca/weeping: Plan for today: d/c ATB, titrate Levo. If no return of cognitive fx in 24 hrs, scan head for goals of care discussion. D/C planning ongoing
--- NOTE | 2025-10-07 10:16 | PM.CCPN ---
Subjective Subjective Date of Service: 10/07/25 Interval History: 80-year-old lady with underlying pulmonary hypertension, Sjogren/crest syndrome, diastolic heart failure, transfusion-dependent MDS, CKD 3, intestinal AV malformations, avascular necrosis, known decubitus ulcer, recurrent pulmonary aspirations admitted on 09/25/2025 with worsening lower extremity edema and treated for congestive heart failure exacerbation with hospital course complicated by hemorrhagic shock secondary to acute GI bleed on 10/02/2025 requiring intubation for airway protection on the background of aspiration of her coffee-ground emesis. Evaluated by gastroenterology service with no plans for acute procedures at this time. Acute bleed resolved with hemoglobin stabilizing. No events overnight. Now with poor arousal with sedation vacation, increasing illness after, and with worsening tolerance of pressor support trials. Critical Care Time (minutes): 60 Physical Exam Vital Signs: Vital Signs: Last Vital Signs Temp 97.2 F 10/07/25 09:00 Pulse 87 10/07/25 09:00 Resp 16 10/07/25 09:00 BP 120/54 L 10/07/25 09:00 Pulse Ox 95 10/07/25 09:00 O2 Del Method Mechanical Ventil ation 10/07/25 09:00 O2 Flow Rate 40 10/04/25 10:00 FiO2 40 10/07/25 09:00 BMI result Body Mass Index 26.4 Const: General: no acute distress Nutritional Appearance: Edematous Eyes: Sclerae: sclerae normal Neck: Neck: Yes no lymphadenopathy, Yes trachea midline and Yes supple Resp: Auscultation: crackles (Bilateral) Cardio: Rate: regular rate Rhythm: regular rhythm Heart sounds: no gallops, no murmurs and no rubs GI: Palpation (GI): Soft to palpation and Other GI palpation findings present ( Nontender) Auscultation: normal bowel sounds Extrem: General: No clubbing, No cyanosis and Yes edema (1+ bilateral) Objective Data Labs 10/07/25 05:01 10/07/25 05:01 Labs: Laboratory Results - last 24 hr 10/06/25 10/06/25 10/06/25 12:17 18:23 20:04 WBC RBC Hgb Hct MCV MCH MCHC RDW Plt Count MPV Immature Gran % (Auto) Neut % (Auto) Lymph % (Auto) [place] % (Auto) Eos % (Auto) Baso % (Auto) Lymph # (Auto) [place] # (Auto) Eos # (Auto) Baso # (Auto) Abs Immat Gran (auto) Absolute Neuts (auto) Absolute Nucleated RBC Nucleated RBC % (auto) Smear Tech's Comments VBG pH VBG pCO2 VBG pO2 VBG HCO3 VBG O2 Saturation VBG Base Excess Sodium 145 Potassium 3.3 Chloride 110 H Carbon Dioxide 21 L Anion Gap 17 BUN 77 H Creatinine 2.61 H Estim Creat Clear Calc 15.6 Estimated GFR 18 POC Glucose 98 101 Random Glucose 171 H Calcium 8.8 Phosphorus 3.7 Magnesium 1.7 Total Bilirubin AST ALT Alkaline Phosphatase Total Protein Albumin 10/07/25 10/07/25 10/07/25 00:20 05:01 05:13 WBC 7.4 RBC 2.50 L Hgb 7.7 L Hct 24.2 L MCV 96.8 MCH 30.8 MCHC 31.8 RDW 19.6 H Plt Count 26 L D MPV 12.4 H Immature Gran % (Auto) 1.3 H Neut % (Auto) 90.5 H Lymph % (Auto) 3.2 L [place] % (Auto) 4.8 Eos % (Auto) 0.1 Baso % (Auto) 0.1 Lymph # (Auto) 0.2 L [place] # (Auto) 0.4 Eos # (Auto) 0.0 Baso # (Auto) 0.0 Abs Immat Gran (auto) 0.10 H Absolute Neuts (auto) 6.7 Absolute Nucleated RBC 0.000 Nucleated RBC % (auto) 0.0 Smear Tech's Comments VERIFIED VBG pH 7.42 VBG pCO2 32 VBG pO2 51 VBG HCO3 21 L VBG O2 Saturation 84.0 VBG Base Excess -2.2 Sodium 144 Potassium 4.1 D Chloride 111 H Carbon Dioxide 20 L Anion Gap 17 BUN 77 H Creatinine 2.60 H Estim Creat Clear Calc 15.6 Estimated GFR 18 POC Glucose 190 H Random Glucose 152 H Calcium 8.6 Phosphorus 3.8 Magnesium 2.1 Total Bilirubin 0.8 AST 57 H ALT 83 H Alkaline Phosphatase 185 H Total Protein 4.8 L Albumin 3.0 L Microbiology Microbiology Results: Microbiology 10/03/25 09:35 Blood - Venous Blood Culture - Preliminary No growth after 48 hours. 10/03/25 09:36 Blood - Venous Blood Culture - Preliminary No growth after 48 hours. 09/25/25 16:55 Blood - Venous Blood Culture - Final No growth after 5 days. 09/25/25 16:57 Blood - Venous Blood Culture - Final No growth after 5 days. 09/25/25 16:43 Sacrum Gram Stain - Final 09/25/25 16:43 Sacrum Routine Culture - Final Pseudomonas aeruginosa Enterococcus faecalis Progress Note: A&P Assessment and plan (1) CHF (congestive heart failure): Status: Acute (2) Upper GI bleed: Status: Acute (3) Acute renal failure: Status: Acute (4) Sjogren syndrome: Status: Acute (5) CREST (calcinosis, Raynaud's phenomenon, esophageal dysfunction, sclerodactyly, telangiectasia): Status: Acute (6) Pulmonary aspiration: Status: Acute (7) Anasarca: Status: Acute Plan Assessment: 80-year-old lady with underlying pulmonary hypertension, diastolic heart failure, CKD 3 and CREST/Sjogren's admitted with exacerbation of underlying heart failure further complicated by hemorrhagic shock secondary to upper GI bleed and pulmonary aspirations requiring intubation and ventilatory support. Plan: Neuro: Poor arousal with sedation vacation, likely acute metabolic encephalopathy secondary to uremia, if not improving, will consider reimaging. Cardiac: Pressor requirements continue to improve. Pulmonary hypertension, unclear whether primary or secondary to underlying heart disease or rheumatologic disease. Pulmonary: Acute hypoxic respiratory failure secondary to pulmonary aspiration of coffee-ground emesis on a background of prior recurrent aspirations. Continue to titrate off ventilatory support as tolerated. Renal: ERIC, likely secondary to shock induced ATN. Oliguric. Continue to monitor renal indices and urine output. Endo: No acute issues. GI: Upper GI bleed likely secondary to underlying known AV malformations. Gastroenterology service care appreciated. No plans for acute interventions. Continue PPI. ID: Decubitus ulcer previously growing pansensitive Enterococcus and Pseudomonas, completed antibiotic course. Completed caspofungin for Yumiko esophagitis. Heme/Onc: Acute blood loss anemia secondary to upper GI bleed. Status post blood product resuscitation. Hemoglobin stabilized. Transfusion threshold of 7. Psych: No acute issues. Miscellaneous: No acute issues. Prophylaxis: Ppi, pneumatic compression Diet: Tube feeds Critical care time spent: 60 minutes Quality Stroke Does the patient have a stroke diagnosis?: No VTE Prior VTE?: No VTE Risk Level:: Medical - moderate - high VTE Device Contraindication: N/A - Device Ordered VTE Drug Contraindication: Treatment Not Tolerated
--- NOTE | 2025-10-07 10:56 | MHC.CLN ---
F/U DISCUSSED AT ROUNDS WITH MD TOLERATING TRICKLE FEEDS PER MSG RECOMMEND NEPRO AT MAX GOAL RATE 40ML/HR TO PROVIDE 1728KCALS (29KCALS/KG), 78G PROTEIN (1.3G/KG), 698ML TOTAL FREE WATER FROM FORMULA TF WILL PROMOTE WOUND HEALING MONITOR TOLERANCE AND LYTES
[2025-10-07 12:45] LABS: Glucose, Whole Blood 125 mg/dL (60-115)
[2025-10-07 18:00] LABS: Glucose, Whole Blood 132 mg/dL (60-115)
--- NOTE | 2025-10-07 19:36 | PC.NURSE ---
Assumed care of patient at 0700 Patient minimally responsive, opens eyes with verbal stimuli, unable to track, no purposeful movement, off sedation >24hours. Vented on ACVC+ able to change to PSV at about 1030, tolerating well except with reposition, patient desats and becomes tachypneic with repositioning. Tube feeds increased as ordered and tolerating at current time, slight increase to ostomy output, lerma draining cloudy pale yellow oliguria, family at bedside this afternoon.
--- NOTE | 2025-10-07 19:36 | PC.NURSE ---
Assumed care of patient at 1645 on arrival fro ED. Patient alert and oriented x4, denies pain, discomfort or nausea at current time, bicarb in D5 infusing as ordered, POC Q1 hour as ordered, MD aware and to continue to monitor, patient c/o intermittent tongue pain 910 that has come and gone since this AM, slight swelling stated and noted, MD aware and to continue to monitor. Wound to Right great toe noted, see skin note
--- NOTE | 2025-10-07 19:42 | HO.SKINPHOTO ---
Location: Right Great Toe Category: Diabetic Ulcer Stage: Length: Width: Depth: cm
[2025-10-08] VITALS (38 sets, daily range): BP systolic 115–171; BP diastolic 54–89; PULSE 111–137; RESP 17–37; TEMP 35–38; O2SAT 89–100; BMI 26.7
[2025-10-08 00:05] LABS: Glucose, Whole Blood 140 mg/dL (60-115)
[2025-10-08] MEDS: Albumin Human 25 % 100 ML IV (01:20)
--- NOTE | 2025-10-08 05:24 | PC.NURSE ---
Addendum entered by Vic Richmond RN 10/08/25 05:38: AM H/H= 6.7/20.2 ...TYPE AND SCREEN DRAWN..PLAN TO ORDER PRBC TRANSFUSION PER PROVIDER Original Note: CARE ASSUMED 7PM...REMAINS OFF SEDATION...ORALLY INTUBATED/VCV VENT SUPPORT...LEVOPHED DRIP WEANED OFF...SINUS TACH HR 120'S...WINTER WITH APPROX 20 CC/HR SEDIMENTED YELLOW URINE..PROVIDER AWARE....ANASARCA PRESENT...ARMS WEEPING SERO-SANGUINOUS DRAINAGE..ABDOMEN DISTENDED AND EDEMATOUS..COLOSTOMY STOMA PINK..SCANT BLACK DRAINAGE...TUBE FEEDS TITRATED TO GOAL OF NEPRO 40 CC/HR....EYES OPEN AT TIMES AND BRIEFLY BUT INCONSISTANTLY TRACKS SPEAKER....MOVING ARMS WEAKLY BUT NOT TO COMMAND..RAISES RIGHT ARM TO ETT AND ATTEMPTING TO GRAB HOLD ETT...BILATERAL WRIST RESTRAINTS APPLIED PER PROVIDER FOR AIRWAY SAFETY...DILAUDID X2 DOSES OVERNIGHT FOR GRIMACING AND TACHYPNEA...AT ONE POINT PATIENT NODDED YES TO PAIN BUT THEN UNABLE TO DOD YES/NO TO QUESTIONS AFTERWARDS AND NOT FOLLOWING COMMANDS
[2025-10-08 05:26] LABS: VBG HCO3 22 mmol/L (22-26)
[2025-10-08 05:28] LABS: Venous Blood Gas Refer to POC result
[2025-10-08 05:29] LABS: Mean Corpuscular HGB Conc 33.2 g/dl (31.0-35.0); Mean Corpuscular Hemoglobin 31.8 pg (27.0-33.0); Mean Corpuscular Volume 95.7 fL (80.0-98.0); NRBC Abs Auto 0.040 X10*3/uL (0.0-0.012); NRBC Pct Auto 0.4 /100WBC (0.0-0.2); Red Blood Count 2.11 X10*6/uL (4.20-5.50); White Blood Count 9.2 X10*3/uL (4.8-10.8)
[2025-10-08 05:34] LABS: Hemoglobin 6.7 g/dl (12.0-16.0)
[2025-10-08 05:35] LABS: Hematocrit 20.2 % (37.0-47.0); Platelet Count 31 X10*3/uL (160-400)
[2025-10-08 05:44] LABS: Ammonia 36 umol/L (13-55)
[2025-10-08 05:47] LABS: Alanine Aminotransferase 58 U/L (0-31); Albumin Level 4.1 g/dL (3.5-5.0); Alkaline Phosphatase 354 U/L (39-117); Anion Gap 20 (12-20); Aspartate Amino Transferase 46 U/L (5-31); Blood Urea Nitrogen 81 mg/dL (9-16); Calcium 9.4 mg/dL (8.4-10.2); Carbon Dioxide 20 mmol/L (22-29); Chloride 109 mmol/L (96-108); Creatinine Clr Calc Pharmacy 15.0; Estimated Glomerular Filt Rate 17; Magnesium 2.1 mg/dL (1.6-2.6); Potassium 3.8 mmol/L (3.3-5.1); Sodium 145 mmol/L (135-145); Total Protein 5.7 g/dL (6.5-8.0)
[2025-10-08 06:11] LABS: Band Neutrophils Percent 1 % (3-5); Lymphocytes Absolute Manual 0.1 X10*3/uL (1.2-4.9); Lymphocytes Percent Manual 1 % (20-40); Metamyelocytes Absolute 0.1 X10*3/uL; Metamyelocytes Percent 1 %; Monocytes Absolute Manual 0.1 X10*3/uL (0.1-1.2); Monocytes Percent Manual 1 % (2-11); Myelocytes Absolute 0.1 X10*/uL; Myelocytes Percent 1 %; Neutrophils Absolute Manual 8.8 X10*3/uL (2.0-8.3); Neutrophils Percent Manual 95 % (45-73)
[2025-10-08 06:12] LABS: Burr Cells 2+ (3-5) /OIF; Hypersegmented Neutrophils PRESENT; Polychromasia 1+ (0-2) /OIF; RBC Morphology NOTED; Schistocytes 1+ (0-2) /OIF; Toxic Vacuolation PRESENT
[2025-10-08 06:22] LABS: Glucose, Whole Blood 152 mg/dL (60-115)
[2025-10-08] MEDS: 0.9 % Sodium Chloride Flush 3 ML SYRINGE IVFLUSH ×2 (08:56→18:22)
[2025-10-08] MEDS: Chlorhexidine Gluc Oral Rinse 15 ML MOUTHWASH BUCCAL ×3 (08:56→20:38)
--- NOTE | 2025-10-08 10:08 | PM.CCPN ---
Subjective Subjective Date of Service: 10/08/25 Interval History: 80-year-old lady with underlying pulmonary hypertension, Sjogren/crest syndrome, diastolic heart failure, transfusion-dependent MDS, CKD 3, intestinal AV malformations, avascular necrosis, known decubitus ulcer, recurrent pulmonary aspirations admitted on 09/25/2025 with worsening lower extremity edema and treated for congestive heart failure exacerbation with hospital course complicated by hemorrhagic shock secondary to acute GI bleed on 10/02/2025 requiring intubation for airway protection on the background of aspiration of her coffee-ground emesis. Evaluated by gastroenterology service with no plans for acute procedures at this time. Acute bleed resolved with hemoglobin stabilizing. No events overnight. Encephalopathy is slowly improving. Critical Care Time (minutes): 60 Physical Exam Vital Signs: Vital Signs: Last Vital Signs Temp 99.9 F 10/08/25 08:00 Pulse 123 H 10/08/25 09:00 Resp 25 H 10/08/25 09:00 BP 163/68 H 10/08/25 09:00 Pulse Ox 91 L 10/08/25 09:00 O2 Del Method Mechanical Ventil ation 10/08/25 09:00 O2 Flow Rate 40 10/04/25 10:00 FiO2 40 10/08/25 09:00 BMI result Body Mass Index 26.7 Const: General: no acute distress and other (Improving arousal with sedation vacations) Nutritional Appearance: Edematous Eyes: Sclerae: sclerae normal EOM: EOMs intact bilaterally Neck: Neck: Yes no lymphadenopathy, Yes trachea midline and Yes supple Resp: Effort & Inspection: normal respiratory effort and no respiratory distress Auscultation: clear to auscultation bilaterally Cardio: Rate: tachycardic Rhythm: regular rhythm Heart sounds: no gallops, no murmurs and no rubs GI: Palpation (GI): Soft to palpation and Other GI palpation findings present ( Nontender) Auscultation: normal bowel sounds Extrem: General: No clubbing, No cyanosis and Yes edema (1+ bilateral) Objective Data Labs 10/08/25 05:15 10/08/25 05:15 Labs: Laboratory Results - last 24 hr 10/07/25 10/07/25 10/08/25 12:42 17:57 00:00 WBC RBC Hgb Hct MCV MCH MCHC RDW Plt Count MPV Immature Gran % (Auto) Neut % (Auto) Lymph % (Auto) [place] % (Auto) Eos % (Auto) Baso % (Auto) Lymph # (Auto) [place] # (Auto) Eos # (Auto) Baso # (Auto) Abs Immat Gran (auto) Absolute Neuts (auto) Absolute Nucleated RBC Nucleated RBC % (auto) Neutrophils % (Manual) Band Neutrophils % Lymphocytes % (Manual) Monocytes % (Manual) Metamyelocytes % Myelocytes % Abs Neuts (Manual) Lymphocytes # (Manual) Monocytes # (Manual) Metamyelocytes # Myelocytes # Nucleated RBCs Hypersegmented Neuts Toxic Vacuolation Platelet Estimate Plt Morphology Comment RBC Morphology Polychromasia [place] Cells Schistocytes Smear Path Review VBG pH VBG pCO2 VBG pO2 VBG HCO3 VBG O2 Saturation VBG Base Excess Sodium Potassium Chloride Carbon Dioxide Anion Gap BUN Creatinine Estim Creat Clear Calc Estimated GFR POC Glucose 125 H 132 H 140 H Random Glucose Calcium Phosphorus Magnesium Total Bilirubin AST ALT Alkaline Phosphatase Ammonia Total Protein Albumin Blood Type Antibody Screen Crossmatch 10/08/25 10/08/25 10/08/25 05:15 05:22 05:28 WBC 9.2 RBC 2.11 L Hgb 6.7 L* Hct 20.2 L* MCV 95.7 MCH 31.8 MCHC 33.2 RDW 19.5 H Plt Count 31 L MPV 12.2 Immature Gran % (Auto) Cancelled Neut % (Auto) Cancelled Lymph % (Auto) Cancelled [place] % (Auto) Cancelled Eos % (Auto) Cancelled Baso % (Auto) Cancelled Lymph # (Auto) Cancelled [place] # (Auto) Cancelled Eos # (Auto) Cancelled Baso # (Auto) Cancelled Abs Immat Gran (auto) Cancelled Absolute Neuts (auto) Cancelled Absolute Nucleated RBC 0.040 H Nucleated RBC % (auto) 0.4 H Neutrophils % (Manual) 95 H Band Neutrophils % 1 L Lymphocytes % (Manual) 1 L Monocytes % (Manual) 1 L Metamyelocytes % 1 Myelocytes % 1 Abs Neuts (Manual) 8.8 H Lymphocytes # (Manual) 0.1 L Monocytes # (Manual) 0.1 Metamyelocytes # 0.1 Myelocytes # 0.1 Nucleated RBCs 1 H Hypersegmented Neuts PRESENT Toxic Vacuolation PRESENT Platelet Estimate DECREASED Plt Morphology Comment NORMAL RBC Morphology NOTED Polychromasia 1+ (0-2) [place] Cells 2+ (3-5) Schistocytes 1+ (0-2) Smear Path Review SEE NOTE VBG pH 7.42 VBG pCO2 34 VBG pO2 44 VBG HCO3 22 VBG O2 Saturation Not Reportable VBG Base Excess -1.2 Sodium 145 Potassium 3.8 Chloride 109 H Carbon Dioxide 20 L Anion Gap 20 BUN 81 H Creatinine 2.76 H Estim Creat Clear Calc 15.0 Estimated GFR 17 POC Glucose Random Glucose 157 H Calcium 9.4 D Phosphorus 3.1 Magnesium 2.1 Total Bilirubin 1.3 H AST 46 H ALT 58 H Alkaline Phosphatase 354 H Ammonia 36 Total Protein 5.7 L Albumin 4.1 Blood Type B Positive Antibody Screen NEGATIVE Crossmatch See Detail 10/08/25 06:19 WBC RBC Hgb Hct MCV MCH MCHC RDW Plt Count MPV Immature Gran % (Auto) Neut % (Auto) Lymph % (Auto) [place] % (Auto) Eos % (Auto) Baso % (Auto) Lymph # (Auto) [place] # (Auto) Eos # (Auto) Baso # (Auto) Abs Immat Gran (auto) Absolute Neuts (auto) Absolute Nucleated RBC Nucleated RBC % (auto) Neutrophils % (Manual) Band Neutrophils % Lymphocytes % (Manual) Monocytes % (Manual) Metamyelocytes % Myelocytes % Abs Neuts (Manual) Lymphocytes # (Manual) Monocytes # (Manual) Metamyelocytes # Myelocytes # Nucleated RBCs Hypersegmented Neuts Toxic Vacuolation Platelet Estimate Plt Morphology Comment RBC Morphology Polychromasia [place] Cells Schistocytes Smear Path Review VBG pH VBG pCO2 VBG pO2 VBG HCO3 VBG O2 Saturation VBG Base Excess Sodium Potassium Chloride Carbon Dioxide Anion Gap BUN Creatinine Estim Creat Clear Calc Estimated GFR POC Glucose 152 H Random Glucose Calcium Phosphorus Magnesium Total Bilirubin AST ALT Alkaline Phosphatase Ammonia Total Protein Albumin Blood Type Antibody Screen Crossmatch Microbiology Microbiology Results: Microbiology 10/03/25 09:35 Blood - Venous Blood Culture - Preliminary No growth after 48 hours. 10/03/25 09:36 Blood - Venous Blood Culture - Preliminary No growth after 48 hours. 09/25/25 16:55 Blood - Venous Blood Culture - Final No growth after 5 days. 09/25/25 16:57 Blood - Venous Blood Culture - Final No growth after 5 days. 09/25/25 16:43 Sacrum Gram Stain - Final 09/25/25 16:43 Sacrum Routine Culture - Final Pseudomonas aeruginosa Enterococcus faecalis Progress Note: A&P Assessment and plan (1) CHF (congestive heart failure): Status: Acute (2) Hemorrhagic shock: Status: Acute (3) Upper GI bleed: Status: Acute (4) Acute renal failure: Status: Acute (5) Sjogren syndrome: Status: Acute (6) CREST (calcinosis, Raynaud's phenomenon, esophageal dysfunction, sclerodactyly, telangiectasia): Status: Acute (7) Pulmonary aspiration: Status: Acute (8) Anasarca: Status: Acute Plan Assessment: 80-year-old lady with underlying pulmonary hypertension, diastolic heart failure, CKD 3 and CREST/Sjogren's admitted with exacerbation of underlying heart failure further complicated by hemorrhagic shock secondary to upper GI bleed and pulmonary aspirations requiring intubation and ventilatory support. Plan: Neuro: Poor arousal with sedation vacation, likely acute metabolic encephalopathy secondary to uremia, now slowly improving. Cardiac: Titrated off pressor support. Pulmonary hypertension, unclear whether primary or secondary to underlying heart disease or rheumatologic disease. Will restart on sildenafil. Pulmonary: Acute hypoxic respiratory failure secondary to pulmonary aspiration of coffee-ground emesis on a background of prior recurrent aspirations. Continue to titrate off ventilatory support as tolerated. Renal: ERIC, likely secondary to shock induced ATN. Non oliguric. Continue to monitor renal indices and urine output. Endo: No acute issues. GI: Upper GI bleed likely secondary to underlying known AV malformations. Gastroenterology service care appreciated. No plans for acute interventions. Continue PPI. ID: Decubitus ulcer previously growing pansensitive Enterococcus and Pseudomonas, completed antibiotic course. Completed caspofungin for [place]iko esophagitis. Heme/Onc: Acute blood loss anemia secondary to upper GI bleed. Status post blood product resuscitation. Transfusion threshold of 7. Psych: No acute issues. Miscellaneous: No acute issues. Prophylaxis: Ppi, pneumatic compression Diet: Tube feeds Critical care time spent: 60 minutes Quality Stroke Does the patient have a stroke diagnosis?: No VTE Prior VTE?: No VTE Risk Level:: Medical - moderate - high VTE Device Contraindication: N/A - Device Ordered VTE Drug Contraindication: Treatment Not Tolerated
--- NOTE | 2025-10-08 10:48 | MHC.CLN ---
F/U DISCUSSED AT ROUNDS WITH CONTINUE NEPRO AT MAX GOAL RATE 40ML/HR TO PROVIDE 1728KCALS (29KCALS/KG), 78G PROTEIN (1.3G/KG), 698ML TOTAL FREE WATER FROM FORMULA TF WILL PROMOTE WOUND HEALING MONITOR TOLERANCE AND LYTES RD CAN BE REACHED VIA TIGER CONNECT DURING OFF HOURS IF NEEDED
[2025-10-08 11:50] LABS: Glucose, Whole Blood 140 mg/dL (60-115)
--- NOTE | 2025-10-08 15:21 | MHC.CM.PN ---
PT REMAINS IN ICU ON VENTILATORY SUPPORT. PT WAS WEANED OFF PRESSOR SUPPORT. CM WILL CONTINUE TO FOLLOW FOR PLAN.
[2025-10-08 17:12] LABS: Mean Corpuscular HGB Conc 33.2 g/dl (31.0-35.0); Mean Corpuscular Hemoglobin 30.8 pg (27.0-33.0); Mean Corpuscular Volume 92.9 fL (80.0-98.0); NRBC Abs Auto 0.070 X10*3/uL (0.0-0.012); NRBC Pct Auto 0.9 /100WBC (0.0-0.2); Red Blood Count 2.24 X10*6/uL (4.20-5.50); White Blood Count 7.7 X10*3/uL (4.8-10.8)
[2025-10-08 17:15] LABS: Platelet Count 26 X10*3/uL (160-400)
[2025-10-08 17:17] LABS: Hematocrit 20.8 % (37.0-47.0); Hemoglobin 6.9 g/dl (12.0-16.0)
[2025-10-08 18:21] LABS: Glucose, Whole Blood 182 mg/dL (60-115)
--- NOTE | 2025-10-08 18:34 | PC.NURSE ---
Patient continues to be on mechanical ventilation, off sedation for over 48 hours, restless at times, PRN versed ordered per provider, with good effect. Ostomy noted to put out 200mls dark dark brown gelatinous stool in am, this evening noted to have 350ml Maroon colored gelatinous stool, Provider aware H+H ordered, 6.9/20.8, 1 unit of RBC ordered and started, tolerating well. Weeping to arms still noted, small blood blister to left arm noted over bruise and MD aware.
[2025-10-08 19:03] LABS: Band Neutrophils Percent 5 % (3-5); Burr Cells 2+ (3-5) /OIF; Metamyelocytes Absolute 0.2 X10*3/uL; Metamyelocytes Percent 2 %; Neutrophils Absolute Manual 7.5 X10*3/uL (2.0-8.3); Neutrophils Percent Manual 93 % (45-73); RBC Morphology NOTED; Schistocytes 1+ (0-2) /OIF
[2025-10-08 23:18] LABS: Hematocrit 24.6 % (37.0-47.0); Hemoglobin 8.3 g/dl (12.0-16.0); Mean Corpuscular HGB Conc 33.7 g/dl (31.0-35.0); Mean Corpuscular Hemoglobin 30.4 pg (27.0-33.0); Mean Corpuscular Volume 90.1 fL (80.0-98.0); NRBC Abs Auto 0.040 X10*3/uL (0.0-0.012); NRBC Pct Auto 0.5 /100WBC (0.0-0.2); Platelet Count 27 X10*3/uL (160-400); Red Blood Count 2.73 X10*6/uL (4.20-5.50); White Blood Count 8.4 X10*3/uL (4.8-10.8)
[2025-10-09] VITALS (35 sets, daily range): BP systolic 98–175; BP diastolic 45–93; PULSE 83–139; RESP 18–32; TEMP 34.8–37.7; O2SAT 91–100; BMI 26.8
[2025-10-09] MEDS: 0.9 % Sodium Chloride Flush 3 ML SYRINGE IVFLUSH ×4 (00:01→19:51)
[2025-10-09 00:06] LABS: Glucose, Whole Blood 165 mg/dL (60-115)
[2025-10-09 05:12] LABS: VBG HCO3 23 mmol/L (22-26); VBG O2 % Saturation 84.0 %
[2025-10-09 05:14] LABS: Venous Blood Gas Refer to POC result
[2025-10-09 05:39] LABS: Hematocrit 24.9 % (37.0-47.0); Hemoglobin 8.3 g/dl (12.0-16.0); Mean Corpuscular HGB Conc 33.3 g/dl (31.0-35.0); Mean Corpuscular Hemoglobin 30.1 pg (27.0-33.0); Mean Corpuscular Volume 90.2 fL (80.0-98.0); NRBC Abs Auto 0.070 X10*3/uL (0.0-0.012); NRBC Pct Auto 0.8 /100WBC (0.0-0.2); Red Blood Count 2.76 X10*6/uL (4.20-5.50); White Blood Count 9.3 X10*3/uL (4.8-10.8)
[2025-10-09 05:41] LABS: Albumin Level 3.6 g/dL (3.5-5.0); Anion Gap 20 (12-20); Blood Urea Nitrogen 87 mg/dL (9-16); Calcium 9.3 mg/dL (8.4-10.2); Carbon Dioxide 19 mmol/L (22-29); Chloride 116 mmol/L (96-108); Creatinine Clr Calc Pharmacy 15.5; Estimated Glomerular Filt Rate 17; Magnesium 2.2 mg/dL (1.6-2.6); Platelet Count 37 X10*3/uL (160-400); Potassium 3.6 mmol/L (3.3-5.1); Sodium 151 mmol/L (135-145)
[2025-10-09 06:03] LABS: Band Neutrophils Percent 3 % (3-5); Metamyelocytes Absolute 0.1 X10*3/uL; Metamyelocytes Percent 1 %; Monocytes Absolute Manual 0.4 X10*3/uL (0.1-1.2); Monocytes Percent Manual 4 % (2-11); Myelocytes Absolute 0.1 X10*/uL; Myelocytes Percent 1 %; Neutrophils Absolute Manual 8.7 X10*3/uL (2.0-8.3); Neutrophils Percent Manual 91 % (45-73)
[2025-10-09 06:06] LABS: RBC Morphology NOTED
[2025-10-09 06:07] LABS: Acanthocytes 1+ (0-2) /OIF; Burr Cells 1+ (0-2) /OIF; Hypochromasia 1+ (5-14) /OIF; Target Cells 1+ (5-14) /OIF; Toxic Vacuolation PRESENT
[2025-10-09] MEDS: Sodium,Potassium Phosphates POWD.PACK 2 PACKET OG-TUBE (07:30)
[2025-10-09] MEDS: Chlorhexidine Gluc Oral Rinse 15 ML MOUTHWASH BUCCAL ×3 (07:30→19:50)
--- NOTE | 2025-10-09 11:19 | P.PNCC_ITS ---
Subjective Subjective Date of Service: 10/09/25 Interval History: 80-year-old lady with underlying pulmonary hypertension, Sjogren/crest syndrome, diastolic heart failure, transfusion-dependent MDS, CKD 3, intestinal AV malformations, avascular necrosis, known decubitus ulcer, recurrent pulmonary aspirations admitted on 09/25/2025 with worsening lower extremity edema and treated for congestive heart failure exacerbation with hospital course complicated by hemorrhagic shock secondary to acute GI bleed on 10/02/2025 requiring intubation for airway protection on the background of aspiration of her coffee-ground emesis. Evaluated by gastroenterology service with no plans for acute procedures at this time. Thereafter with significant encephalopathy and poor arousal with sedation vacation slowly. Overnight with small recurrent GI bleed requiring 1 unit of packed red blood cells, now stabilizing hemoglobin again. Critical Care Time (minutes): 60 Physical Exam 2 Vital Signs: Vital Signs: Last Vital Signs Temp 99.5 F 10/09/25 08:59 Pulse 114 H 10/09/25 10:00 Resp 20 10/09/25 10:00 BP 151/82 H 10/09/25 10:00 Pulse Ox 96 10/09/25 10:00 O2 Del Method Mechanical Ventil ation 10/09/25 10:00 O2 Flow Rate 40 10/04/25 10:00 FiO2 35 10/09/25 10:00 BMI result Body Mass Index 26.8 Const: General: no acute distress and other (Sedated on ventilatory support) Eyes: Sclerae: sclerae normal EOM: EOMs intact bilaterally Neck: Neck: Yes no lymphadenopathy, Yes trachea midline and Yes supple Resp: Auscultation: crackles (Mild bilateral) Cardio: Rate: tachycardic Rhythm: regular rhythm Heart sounds: no gallops, no murmurs and no rubs GI: Palpation (GI): Soft to palpation and Other GI palpation findings present ( Nontender) Auscultation: normal bowel sounds Extrem: General: No clubbing, No cyanosis and Yes edema (2+ bilateral) Objective Data Labs 10/09/25 05:04 10/09/25 05:04 Labs: Laboratory Results - last 24 hr 10/08/25 10/08/25 10/08/25 05:28 11:42 17:02 WBC 7.7 RBC 2.24 L Hgb 6.9 L* Hct 20.8 L* MCV 92.9 MCH 30.8 MCHC 33.2 RDW 18.0 H Plt Count 26 L MPV 12.1 Immature Gran % (Auto) Cancelled Neut % (Auto) Cancelled Lymph % (Auto) Cancelled [place] % (Auto) Cancelled Eos % (Auto) Cancelled Baso % (Auto) Cancelled Lymph # (Auto) Cancelled [place] # (Auto) Cancelled Eos # (Auto) Cancelled Baso # (Auto) Cancelled Abs Immat Gran (auto) Cancelled Absolute Neuts (auto) Cancelled Absolute Nucleated RBC 0.070 H Nucleated RBC % (auto) 0.9 H Neutrophils % (Manual) 93 H Band Neutrophils % 5 Monocytes % (Manual) Metamyelocytes % 2 Myelocytes % Abs Neuts (Manual) 7.5 Monocytes # (Manual) Metamyelocytes # 0.2 Myelocytes # Nucleated RBCs Toxic Vacuolation Platelet Estimate DECREASED Plt Morphology Comment NORMAL RBC Morphology NOTED Hypochromasia Target Cells [place] Cells 2+ (3-5) Acanthocytes (Sp[place]) Schistocytes 1+ (0-2) VBG pH VBG pCO2 VBG pO2 VBG HCO3 VBG O2 Saturation VBG Base Excess Sodium Potassium Chloride Carbon Dioxide Anion Gap BUN Creatinine Estim Creat Clear Calc Estimated GFR POC Glucose 140 H Random Glucose Calcium Phosphorus Magnesium Albumin Blood Type B Positive Antibody Screen NEGATIVE Crossmatch See Detail 10/08/25 10/08/25 10/08/25 18:17 23:11 23:55 WBC 8.4 RBC 2.73 L D Hgb 8.3 L D Hct 24.6 L MCV 90.1 MCH 30.4 MCHC 33.7 RDW 17.8 H Plt Count 27 L MPV 11.8 Immature Gran % (Auto) Neut % (Auto) Lymph % (Auto) [place] % (Auto) Eos % (Auto) Baso % (Auto) Lymph # (Auto) [place] # (Auto) Eos # (Auto) Baso # (Auto) Abs Immat Gran (auto) Absolute Neuts (auto) Absolute Nucleated RBC 0.040 H Nucleated RBC % (auto) 0.5 H Neutrophils % (Manual) Band Neutrophils % Monocytes % (Manual) Metamyelocytes % Myelocytes % Abs Neuts (Manual) Monocytes # (Manual) Metamyelocytes # Myelocytes # Nucleated RBCs Toxic Vacuolation Platelet Estimate Plt Morphology Comment RBC Morphology Hypochromasia Target Cells [place] Cells Acanthocytes (Spur) Schistocytes VBG pH VBG pCO2 VBG pO2 VBG HCO3 VBG O2 Saturation VBG Base Excess Sodium Potassium Chloride Carbon Dioxide Anion Gap BUN Creatinine Estim Creat Clear Calc Estimated GFR POC Glucose 182 H 165 H Random Glucose Calcium Phosphorus Magnesium Albumin Blood Type Antibody Screen Crossmatch 10/09/25 10/09/25 05:04 05:08 WBC 9.3 RBC 2.76 L Hgb 8.3 L Hct 24.9 L MCV 90.2 MCH 30.1 MCHC 33.3 RDW 18.6 H Plt Count 37 L D MPV 12.7 H Immature Gran % (Auto) Cancelled Neut % (Auto) Cancelled Lymph % (Auto) Cancelled [place] % (Auto) Cancelled Eos % (Auto) Cancelled Baso % (Auto) Cancelled Lymph # (Auto) Cancelled [place] # (Auto) Cancelled Eos # (Auto) Cancelled Baso # (Auto) Cancelled Abs Immat Gran (auto) Cancelled Absolute Neuts (auto) Cancelled Absolute Nucleated RBC 0.070 H Nucleated RBC % (auto) 0.8 H Neutrophils % (Manual) 91 H Band Neutrophils % 3 Monocytes % (Manual) 4 Metamyelocytes % 1 Myelocytes % 1 Abs Neuts (Manual) 8.7 H Monocytes # (Manual) 0.4 Metamyelocytes # 0.1 Myelocytes # 0.1 Nucleated RBCs 2 H Toxic Vacuolation PRESENT Platelet Estimate DECREASED Plt Morphology Comment NORMAL RBC Morphology NOTED Hypochromasia 1+ (5-14) Target Cells 1+ (5-14) [place] Cells 1+ (0-2) Acanthocytes ([place]) 1+ (0-2) Schistocytes VBG pH 7.55 H VBG pCO2 25 VBG pO2 50 VBG HCO3 23 VBG O2 Saturation 84.0 VBG Base Excess 2.2 Sodium 151 H Potassium 3.6 Chloride 116 H Carbon Dioxide 19 L Anion Gap 20 BUN 87 H Creatinine 2.68 H Estim Creat Clear Calc 15.5 Estimated GFR 17 POC Glucose Random Glucose 151 H Calcium 9.3 Phosphorus 2.4 L Magnesium 2.2 Albumin 3.6 Blood Type Antibody Screen Crossmatch Microbiology Microbiology Results: Microbiology 10/03/25 09:35 Blood - Venous Blood Culture - Final No growth after 5 days. 10/03/25 09:36 Blood - Venous Blood Culture - Final No growth after 5 days. 09/25/25 16:55 Blood - Venous Blood Culture - Final No growth after 5 days. 09/25/25 16:57 Blood - Venous Blood Culture - Final No growth after 5 days. 09/25/25 16:43 Sacrum Gram Stain - Final 09/25/25 16:43 Sacrum Routine Culture - Final Pseudomonas aeruginosa Enterococcus faecalis Progress Note: A&P Assessment and plan (1) Upper GI bleed: Status: Acute (2) Acute renal failure: Status: Acute (3) Sjogren syndrome: Status: Acute (4) CREST (calcinosis, Raynaud's phenomenon, esophageal dysfunction, sclerodactyly, telangiectasia): Status: Acute (5) Sacral decubitus ulcer: Status: Acute (6) Anasarca: Status: Acute Plan Assessment: 80-year-old lady with underlying pulmonary hypertension, diastolic heart failure, CKD 3 and CREST/Sjogren's admitted with exacerbation of underlying heart failure further complicated by hemorrhagic shock secondary to upper GI bleed and pulmonary aspirations requiring intubation and ventilatory support. Plan: Neuro: Poor arousal with sedation vacation, likely acute metabolic encephalopathy secondary to uremia, now slowly improving. Cardiac: Titrated off pressor support. Pulmonary hypertension, unclear whether primary or secondary to underlying heart disease or rheumatologic disease. Continue sildenafil. Pulmonary: Acute hypoxic respiratory failure secondary to pulmonary aspiration of coffee-ground emesis on a background of prior recurrent aspirations. Continue to titrate off ventilatory support as tolerated. Renal: ERIC, likely secondary to shock induced ATN. Non oliguric. Continue to monitor renal indices and urine output. Endo: No acute issues. GI: Upper GI bleed likely secondary to underlying known AV malformations. Gastroenterology service care appreciated. No plans for acute interventions. Continue PPI. ID: Decubitus ulcer previously growing pansensitive Enterococcus and Pseudomonas, completed antibiotic course. Completed caspofungin for [place] esophagitis. Heme/Onc: Acute blood loss anemia secondary to upper GI bleed. Status post blood product resuscitation. Transfusion threshold of 7. Psych: No acute issues. Miscellaneous: No acute issues. Prophylaxis: Ppi, pneumatic compression Diet: Tube feeds Critical care time spent: 60 minutes Quality Stroke Does the patient have a stroke diagnosis?: No VTE Prior VTE?: No VTE Risk Level:: Medical - moderate - high VTE Device Contraindication: N/A - Device Ordered VTE Drug Contraindication: Treatment Not Tolerated
[2025-10-09 11:46] LABS: Glucose, Whole Blood 140 mg/dL (60-115)
[2025-10-09] MEDS: dexmedeTOMIDine HCL/NS 400 MCG/100 ML PLAST..BAG 17.18 MCG IVCONT (16:52)
[2025-10-09 18:11] LABS: Glucose, Whole Blood 176 mg/dL (60-115)
[2025-10-09 20:24] LABS: Anion Gap 16 (12-20); Blood Urea Nitrogen 90 mg/dL (9-16); Calcium 8.2 mg/dL (8.4-10.2); Carbon Dioxide 20 mmol/L (22-29); Chloride 120 mmol/L (96-108); Creatinine Clr Calc Pharmacy 16.4; Estimated Glomerular Filt Rate 18; Magnesium 2.0 mg/dL (1.6-2.6); Potassium 3.3 mmol/L (3.3-5.1); Sodium 153 mmol/L (135-145)
[2025-10-09] MEDS: Potassium Chloride Packet 20 MEQ PACKET 60 MEQ PO (20:35)
[2025-10-09 21:25] LABS: Albumin Level 2.8 g/dL (3.5-5.0)
[2025-10-09 23:57] LABS: Glucose, Whole Blood 154 mg/dL (60-115)
[2025-10-10] VITALS (31 sets, daily range): BP systolic 109–179; BP diastolic 52–95; PULSE 81–121; RESP 16–33; TEMP 35.1–37.2; O2SAT 87–100; BMI 24.2
[2025-10-10 05:02] LABS: VBG HCO3 23 mmol/L (22-26); VBG O2 % Saturation 92.0 %
[2025-10-10 05:17] LABS: Hematocrit 26.2 % (37.0-47.0); Hemoglobin 8.7 g/dl (12.0-16.0); Mean Corpuscular HGB Conc 33.2 g/dl (31.0-35.0); Mean Corpuscular Hemoglobin 30.6 pg (27.0-33.0); Mean Corpuscular Volume 92.3 fL (80.0-98.0); NRBC Abs Auto 0.060 X10*3/uL (0.0-0.012); NRBC Pct Auto 0.6 /100WBC (0.0-0.2); Red Blood Count 2.84 X10*6/uL (4.20-5.50); White Blood Count 9.4 X10*3/uL (4.8-10.8)
[2025-10-10 05:18] LABS: Platelet Count 44 X10*3/uL (160-400)
[2025-10-10 05:23] LABS: Albumin Level 3.2 g/dL (3.5-5.0); Anion Gap 16 (12-20); Blood Urea Nitrogen 98 mg/dL (9-16); Calcium 9.0 mg/dL (8.4-10.2); Carbon Dioxide 20 mmol/L (22-29); Chloride 119 mmol/L (96-108); Creatinine Clr Calc Pharmacy 16.2; Estimated Glomerular Filt Rate 18; Magnesium 2.2 mg/dL (1.6-2.6); Potassium 4.1 mmol/L (3.3-5.1); Sodium 151 mmol/L (135-145)
[2025-10-10 05:26] LABS: Venous Blood Gas Refer to POC result
[2025-10-10 05:49] LABS: Band Neutrophils Percent 3 % (3-5); Eosinophils Absolute Manual 0.1 X10*3/uL (0.0-0.4); Eosinophils Percent Manual 1 % (0-4); Lymphocytes Absolute Manual 0.2 X10*3/uL (1.2-4.9); Lymphocytes Percent Manual 2 % (20-40); Metamyelocytes Absolute 0.5 X10*3/uL; Metamyelocytes Percent 5 %; Monocytes Absolute Manual 0.2 X10*3/uL (0.1-1.2); Monocytes Percent Manual 2 % (2-11); Myelocytes Absolute 0.2 X10*/uL; Myelocytes Percent 2 %; Neutrophils Absolute Manual 8.3 X10*3/uL (2.0-8.3); Neutrophils Percent Manual 85 % (45-73); RBC Morphology NOTED
[2025-10-10 05:50] LABS: Schistocytes 1+ (0-2) /OIF
[2025-10-10 05:51] LABS: Burr Cells 2+ (3-5) /OIF; Tear Drop Cells 1+ (0-2) /OIF; Toxic Granulation PRESENT; Toxic Vacuolation PRESENT
[2025-10-10] MEDS: Albumin Human 25 % 100 ML IV ×2 (07:32→12:53)
[2025-10-10] MEDS: Sodium,Potassium Phosphates POWD.PACK 2 PACKET PO (07:43)
[2025-10-10] MEDS: 0.9 % Sodium Chloride Flush 3 ML SYRINGE IVFLUSH ×2 (07:43→15:52)
[2025-10-10] MEDS: Chlorhexidine Gluc Oral Rinse 15 ML MOUTHWASH BUCCAL ×2 (07:43→15:51)
--- NOTE | 2025-10-10 10:31 | PM.CCPN ---
Subjective Subjective Date of Service: 10/10/25 Interval History: 80-year-old lady with underlying pulmonary hypertension, Sjogren/crest syndrome, diastolic heart failure, transfusion-dependent MDS, CKD 3, intestinal AV malformations, avascular necrosis, known decubitus ulcer, recurrent pulmonary aspirations admitted on 09/25/2025 with worsening lower extremity edema and treated for congestive heart failure exacerbation with hospital course complicated by hemorrhagic shock secondary to acute GI bleed on 10/02/2025 requiring intubation for airway protection on the background of aspiration of her coffee-ground emesis. Evaluated by gastroenterology service with no plans for acute procedures at this time. Thereafter with significant encephalopathy and poor arousal with sedation vacation slowly, now improved. No events overnight. Critical Care Time (minutes): 60 Physical Exam Vital Signs: Vital Signs: Last Vital Signs Temp 99.0 F 10/10/25 08:00 Pulse 107 H 10/10/25 10:00 Resp 33 H 10/10/25 10:00 BP 158/74 H 10/10/25 10:00 Pulse Ox 94 10/10/25 10:00 O2 Del Method Nasal Cannula 10/10/25 10:00 O2 Flow Rate 3 10/10/25 10:00 FiO2 40 10/10/25 10:05 BMI result Body Mass Index 24.2 Const: General: no acute distress and other (Sedated on ventilatory support) Eyes: Sclerae: sclerae normal EOM: EOMs intact bilaterally Neck: Neck: Yes no lymphadenopathy, Yes trachea midline and Yes supple Resp: Effort & Inspection: normal respiratory effort and no respiratory distress Auscultation: clear to auscultation bilaterally Cardio: Rate: tachycardic Rhythm: regular rhythm Heart sounds: no gallops, no murmurs and no rubs GI: Other: Ostomy with output Palpation (GI): Soft to palpation and Other GI palpation findings present ( Nontender) Auscultation: normal bowel sounds Extrem: General: No clubbing, No cyanosis and Yes edema (2+ bilateral) Objective Data Labs 10/10/25 04:54 10/10/25 04:54 Labs: Laboratory Results - last 24 hr 10/09/25 10/09/25 10/09/25 11:43 18:08 19:41 WBC RBC Hgb Hct MCV MCH MCHC RDW Plt Count MPV Immature Gran % (Auto) Neut % (Auto) Lymph % (Auto) [place] % (Auto) Eos % (Auto) Baso % (Auto) Lymph # (Auto) [place] # (Auto) Eos # (Auto) Baso # (Auto) Abs Immat Gran (auto) Absolute Neuts (auto) Absolute Nucleated RBC Nucleated RBC % (auto) Neutrophils % (Manual) Band Neutrophils % Lymphocytes % (Manual) Monocytes % (Manual) Eosinophils % (Manual) Metamyelocytes % Myelocytes % Abs Neuts (Manual) Lymphocytes # (Manual) Monocytes # (Manual) Eosinophils # (Manual) Metamyelocytes # Myelocytes # Nucleated RBCs Toxic Granulation Toxic Vacuolation Platelet Estimate Plt Morphology Comment RBC Morphology Tear Drop Cells [place] Cells Schistocytes VBG pH VBG pCO2 VBG pO2 VBG HCO3 VBG O2 Saturation VBG Base Excess Sodium 153 H Potassium 3.3 Chloride 120 H Carbon Dioxide 20 L Anion Gap 16 BUN 90 H Creatinine 2.54 H Estim Creat Clear Calc 16.4 Estimated GFR 18 POC Glucose 140 H 176 H Random Glucose 147 H Calcium 8.2 L D Phosphorus 2.7 Magnesium 2.0 Albumin 2.8 L 10/09/25 10/10/25 10/10/25 23:50 04:54 04:57 WBC 9.4 RBC 2.84 L Hgb 8.7 L Hct 26.2 L MCV 92.3 MCH 30.6 MCHC 33.2 RDW 19.0 H Plt Count 44 L MPV 12.5 H Immature Gran % (Auto) Cancelled Neut % (Auto) Cancelled Lymph % (Auto) Cancelled [place] % (Auto) Cancelled Eos % (Auto) Cancelled Baso % (Auto) Cancelled Lymph # (Auto) Cancelled [place] # (Auto) Cancelled Eos # (Auto) Cancelled Baso # (Auto) Cancelled Abs Immat Gran (auto) Cancelled Absolute Neuts (auto) Cancelled Absolute Nucleated RBC 0.060 H Nucleated RBC % (auto) 0.6 H Neutrophils % (Manual) 85 H Band Neutrophils % 3 Lymphocytes % (Manual) 2 L Monocytes % (Manual) 2 Eosinophils % (Manual) 1 Metamyelocytes % 5 Myelocytes % 2 Abs Neuts (Manual) 8.3 Lymphocytes # (Manual) 0.2 L Monocytes # (Manual) 0.2 Eosinophils # (Manual) 0.1 Metamyelocytes # 0.5 Myelocytes # 0.2 Nucleated RBCs 1 H Toxic Granulation PRESENT Toxic Vacuolation PRESENT Platelet Estimate DECREASED Plt Morphology Comment NORMAL RBC Morphology NOTED Tear Drop Cells 1+ (0-2) [place] Cells 2+ (3-5) Schistocytes 1+ (0-2) VBG pH 7.56 H VBG pCO2 25 VBG pO2 58 VBG HCO3 23 VBG O2 Saturation 92.0 VBG Base Excess 2.2 Sodium 151 H Potassium 4.1 D Chloride 119 H Carbon Dioxide 20 L Anion Gap 16 BUN 98 H Creatinine 2.58 H Estim Creat Clear Calc 16.2 Estimated GFR 18 POC Glucose 154 H Random Glucose 152 H Calcium 9.0 D Phosphorus 2.5 L Magnesium 2.2 Albumin 3.2 L Microbiology Microbiology Results: Microbiology 10/03/25 09:35 Blood - Venous Blood Culture - Final No growth after 5 days. 10/03/25 09:36 Blood - Venous Blood Culture - Final No growth after 5 days. 09/25/25 16:55 Blood - Venous Blood Culture - Final No growth after 5 days. 09/25/25 16:57 Blood - Venous Blood Culture - Final No growth after 5 days. 09/25/25 16:43 Sacrum Gram Stain - Final 09/25/25 16:43 Sacrum Routine Culture - Final Pseudomonas aeruginosa Enterococcus faecalis Progress Note: A&P Assessment and plan (1) CHF (congestive heart failure): Status: Acute (2) Upper GI bleed: Status: Acute (3) Acute renal failure: Status: Acute (4) Sjogren syndrome: Status: Acute (5) CREST (calcinosis, Raynaud's phenomenon, esophageal dysfunction, sclerodactyly, telangiectasia): Status: Acute (6) Pulmonary aspiration: Status: Acute Plan Assessment: 80-year-old lady with underlying pulmonary hypertension, diastolic heart failure, CKD 3 and CREST/Sjogren's admitted with exacerbation of underlying heart failure further complicated by hemorrhagic shock secondary to upper GI bleed and pulmonary aspirations requiring intubation and ventilatory support. Plan: Neuro: Poor arousal with sedation vacation, likely acute metabolic encephalopathy secondary to uremia, now improved significantly. Cardiac: Titrated off pressor support. Pulmonary hypertension, unclear whether primary or secondary to underlying heart disease or rheumatologic disease. Continue sildenafil. Pulmonary: Acute hypoxic respiratory failure secondary to pulmonary aspiration of coffee-ground emesis on a background of prior recurrent aspirations. Continue to titrate off ventilatory support as tolerated. Renal: ERIC, likely secondary to shock induced ATN. Non oliguric. Continue to monitor renal indices and urine output. Endo: No acute issues. GI: Upper GI bleed likely secondary to underlying known AV malformations. Gastroenterology service care appreciated. No plans for acute interventions. Continue PPI. ID: Decubitus ulcer previously growing pansensitive Enterococcus and Pseudomonas, completed antibiotic course. Completed caspofungin for Yumiko esophagitis. Heme/Onc: Acute blood loss anemia secondary to upper GI bleed. Status post blood product resuscitation. Transfusion threshold of 7. Psych: No acute issues. Miscellaneous: No acute issues. Prophylaxis: Ppi, pneumatic compression Diet: Tube feeds Critical care time spent: 60 minutes Quality Stroke Does the patient have a stroke diagnosis?: No VTE Prior VTE?: No VTE Risk Level:: Medical - moderate - high VTE Device Contraindication: N/A - Device Ordered VTE Drug Contraindication: Treatment Not Tolerated
[2025-10-10 11:50] LABS: Glucose, Whole Blood 124 mg/dL (60-115)
--- NOTE | 2025-10-10 13:13 | PC.RT ---
RT calledto bedside, pt noted 92% on 8 lpm oxymask. Weak congested cough noted. A #6 nasal trumpet was placed in the R nare without issue and the pt was sxn with a # 14 fr catheter for large thick yellow secreations. The pt monica well, nursing was present.
--- NOTE | 2025-10-10 17:31 | PC.NURSE ---
Assumed care for pt at 0700. Pt intubated at this time on ACVC+, off sedation for multiple days. Pt with eyes open, tracking, following commands. PSV trial started at 0750-see vent assessment. Tube feeding paused pending extubation. Extubated at 1005-placed on 3 liters NC. Nasal trumpet placed to right nare for deep suction. NT suctioned for mod amount thick cream sputum. Pt with a moist, wet non productive cough. Minimal gag reflex. Pt currently on 8 liters oxymask, O2 90-95%. SBP 150-160s, aware. Anasarca. 200ml of dark brown liquid emptied from ostomy. Back cath in place; draining with no issues, 35-75ml/hour.? Pressure injury to coccyx changed per wound care order. Q2 oral care and repositioning performed. Plan of care ongoing.
[2025-10-10 17:59] LABS: Glucose, Whole Blood 105 mg/dL (60-115)
[2025-10-10 23:40] LABS: Glucose, Whole Blood 117 mg/dL (60-115)
[2025-10-11] VITALS (27 sets, daily range): BP systolic 138–185; BP diastolic 64–95; PULSE 90–116; RESP 26–46; TEMP 36.6–37.2; O2SAT 89–100; BMI 23.1
[2025-10-11] MEDS: Alteplase Cath Clear 2 MG/2 ML VIAL INTRACATH (00:20)
[2025-10-11] MEDS: Furosemide 20 MG/2 ML VIAL IVPUSH ×2 (01:02→01:49)
[2025-10-11] MEDS: Nitroglycerin 2 % Oint 1 GM Packet 0.5 INCH TRANSDERMA (01:47)
[2025-10-11] MEDS: 0.9 % Sodium Chloride Flush 3 ML SYRINGE IVFLUSH ×3 (01:49→16:24)
[2025-10-11 04:58] LABS: VBG HCO3 21 mmol/L (22-26); VBG O2 % Saturation 62.0 %
[2025-10-11 04:59] LABS: Venous Blood Gas Refer to POC result
[2025-10-11 05:20] LABS: Hematocrit 27.7 % (37.0-47.0); Hemoglobin 8.8 g/dl (12.0-16.0); Mean Corpuscular HGB Conc 31.8 g/dl (31.0-35.0); Mean Corpuscular Hemoglobin 30.2 pg (27.0-33.0); Mean Corpuscular Volume 95.2 fL (80.0-98.0); NRBC Abs Auto 0.140 X10*3/uL (0.0-0.012); NRBC Pct Auto 0.9 /100WBC (0.0-0.2); Platelet Count 113 X10*3/uL (160-400); Red Blood Count 2.91 X10*6/uL (4.20-5.50); White Blood Count 15.7 X10*3/uL (4.8-10.8)
[2025-10-11 05:43] LABS: Albumin Level 3.9 g/dL (3.5-5.0); Anion Gap 25 (12-20); Blood Urea Nitrogen 99 mg/dL (9-16); Calcium 9.6 mg/dL (8.4-10.2); Carbon Dioxide 19 mmol/L (22-29); Chloride 118 mmol/L (96-108); Creatinine Clr Calc Pharmacy 14.8; Estimated Glomerular Filt Rate 19; Magnesium 2.1 mg/dL (1.6-2.6); Potassium 4.0 mmol/L (3.3-5.1); Sodium 158 mmol/L (135-145)
[2025-10-11 05:45] LABS: Band Neutrophils Percent 3 % (3-5); Lymphocytes Absolute Manual 1.1 X10*3/uL (1.2-4.9); Lymphocytes Percent Manual 7 % (20-40); Neutrophils Absolute Manual 14.6 X10*3/uL (2.0-8.3); Neutrophils Percent Manual 90 % (45-73); Polychromasia 1+ (0-2) /OIF; RBC Morphology NOTED
[2025-10-11 05:46] LABS: Burr Cells 1+ (0-2) /OIF
--- NOTE | 2025-10-11 06:01 | PC.NURSE ---
This remote mortgage underwriter took over care at approx 1900. Pt AOX4, able to make needs known although wiffty. Pt states ? I am going home tomorrow?. ST 100s on tele. Denies SOB, although has increased WOB and tachypnea req. PRN doses of fentanyl provided w/ little relief. Pt became more HTN overnight systolic 170s, provider made aware and pt was admin. 5mg IV metop w/ little effect. Lasix and hydralazine provided as well. Nitro paste 0.5inch applied to R chest. Pt denies chest pain. Able to wean from 8L oxymask to 3L oxymask. Of note, pt does desat when lying flat. Back catheter remains in place w/ CYU o/p. LLQ ostomy has small amount of brown mushy stool o/p. Stoma pink and moist. Pt has multiple wounds, care provided at approx 2300- see wound care assessment/ details. Port remains in place, initially w/ no blood return despite repositioing and being reassessed. Cathflo 2mg instilled for 2 hours, now has positive blood return. Pt is being turned and repo Q2 hours. Safety needs are being met. Care is ongoing ? ?
--- NOTE | 2025-10-11 08:57 | P.PNCC_ITS ---
Subjective Subjective Date of Service: 10/11/25 Interval History: Extubated yesterday, tolerating liberation from ventilator well on 4L oxymask weak cough reflex needing deep suctioning Critical Care Time (minutes): 35 Physical Exam 2 Vital Signs: Vital Signs: Last Vital Signs Temp 98.1 F 10/11/25 08:00 Pulse 102 H 10/11/25 08:00 Resp 36 H 10/11/25 08:00 BP 157/73 H 10/11/25 08:00 Pulse Ox 92 10/11/25 07:00 O2 Del Method Oxymask 10/11/25 07:00 O2 Flow Rate 4 10/11/25 07:00 FiO2 40 10/10/25 10:05 BMI result Body Mass Index 23.1 General: Elderly lady in mild acute distress, ill appearing and tired appearing Nutritional Appearance: well nourished and overweight Eyes: appearance normal, both eyes and all related structures; Alignment and Position: alignment normal and position normal Neck: No lymphadenopathy, no thyromegaly Resp: bilateral air entry equal, occasional added sounds present Cardio: Regular rate, regular rhythm; Heart sounds: S1 normal heart sound present and S2 normal heart sound present GI: soft, nontender, no guarding, no hepatosplenomegaly : bladder normal to inspection, bladder normal to palpation, no renal angle tenderness Skin: no rashes or lesions noted and elasticity normal Neuro: oriented to person, oriented to place, oriented to time and moves all extremities Objective Data Labs 10/11/25 04:50 10/11/25 04:50 Labs: Laboratory Results - last 24 hr 10/10/25 10/10/25 10/10/25 11:47 17:55 23:36 WBC RBC Hgb Hct MCV MCH MCHC RDW Plt Count MPV Immature Gran % (Auto) Neut % (Auto) Lymph % (Auto) [place] % (Auto) Eos % (Auto) Baso % (Auto) Lymph # (Auto) [place] # (Auto) Eos # (Auto) Baso # (Auto) Abs Immat Gran (auto) Absolute Neuts (auto) Absolute Nucleated RBC Nucleated RBC % (auto) Neutrophils % (Manual) Band Neutrophils % Lymphocytes % (Manual) Abs Neuts (Manual) Lymphocytes # (Manual) Platelet Estimate Plt Morphology Comment RBC Morphology Polychromasia [place] Cells VBG pH VBG pCO2 VBG pO2 VBG HCO3 VBG O2 Saturation VBG Base Excess Sodium Potassium Chloride Carbon Dioxide Anion Gap BUN Creatinine Estim Creat Clear Calc Estimated GFR POC Glucose 124 H 105 117 H Random Glucose Calcium Phosphorus Magnesium Albumin 10/11/25 10/11/25 04:50 04:54 WBC 15.7 H RBC 2.91 L Hgb 8.8 L Hct 27.7 L MCV 95.2 MCH 30.2 MCHC 31.8 RDW 19.4 H Plt Count 113 L D MPV 12.1 Immature Gran % (Auto) Cancelled Neut % (Auto) Cancelled Lymph % (Auto) Cancelled [place] % (Auto) Cancelled Eos % (Auto) Cancelled Baso % (Auto) Cancelled Lymph # (Auto) Cancelled [place] # (Auto) Cancelled Eos # (Auto) Cancelled Baso # (Auto) Cancelled Abs Immat Gran (auto) Cancelled Absolute Neuts (auto) Cancelled Absolute Nucleated RBC 0.140 H Nucleated RBC % (auto) 0.9 H Neutrophils % (Manual) 90 H Band Neutrophils % 3 Lymphocytes % (Manual) 7 L Abs Neuts (Manual) 14.6 H Lymphocytes # (Manual) 1.1 L Platelet Estimate SLIGHTLY DECREASED Plt Morphology Comment NORMAL RBC Morphology NOTED Polychromasia 1+ (0-2) [place] Cells 1+ (0-2) VBG pH 7.40 VBG pCO2 33 VBG pO2 40 VBG HCO3 21 L VBG O2 Saturation 62.0 VBG Base Excess -2.9 Sodium 158 H Potassium 4.0 Chloride 118 H Carbon Dioxide 19 L Anion Gap 25 H BUN 99 H Creatinine 2.50 H Estim Creat Clear Calc 14.8 Estimated GFR 19 POC Glucose Random Glucose 101 Calcium 9.6 D Phosphorus 3.9 Magnesium 2.1 Albumin 3.9 Microbiology Microbiology Results: Microbiology 10/03/25 09:35 Blood - Venous Blood Culture - Final No growth after 5 days. 10/03/25 09:36 Blood - Venous Blood Culture - Final No growth after 5 days. 09/25/25 16:55 Blood - Venous Blood Culture - Final No growth after 5 days. 09/25/25 16:57 Blood - Venous Blood Culture - Final No growth after 5 days. 09/25/25 16:43 Sacrum Gram Stain - Final 09/25/25 16:43 Sacrum Routine Culture - Final Pseudomonas aeruginosa Enterococcus faecalis Progress Note: A&P Assessment and plan (1) CHF (congestive heart failure): Status: Acute (2) Decompensated heart failure: Status: Acute (3) Acute renal failure: Status: Acute (4) Acute hypernatremia: Status: Acute Plan 80-year-old lady with underlying pulmonary hypertension, diastolic heart failure, CKD 3 and CREST/Sjogren's admitted with exacerbation of underlying heart failure further complicated by hemorrhagic shock secondary to upper GI bleed and pulmonary aspirations requiring intubation and ventilatory support. Neuro: alert and oriented Cardiac: blood pressures on higher side on scheduled metoprolol 5mg q6h will add PRN hydralazine 10mg q4h Bedside echo showing hypertrophic LV, normal LV systolic function, IVC is dilated also possibly from underlying pulmonary HTN Respiratory: Acute hypoxemic respiratory failure due to aspiration pneumonia secondary to upper GI bleed Extubated yesterday, still dyspneic and tachypneic currently on 4L oxymask and needs frequent deep suctioning CT chest on 10/04/2025 showed bilateral pneumonia, left more than right with some pleural effusions which might be a part of anasarca Pulmonary hypertension: Continue sildenafil GI: We will start on tube feeds if she fails speech eval Renal: Acute kidney injury possibly secondary to ATN Creatinine trend has been flat lined around 2.5 Urine output 30ml/hr We will closely monitor I's and O's Avoid nephrotoxic medications Acute hypernatremia: Sodium up to 158 We will start the patient on D5 water along with some lasix will keep the D5W to match urine output Heme: Chronic anemia, closely monitor H&H, transfuse for hemoglobin less than 7 grams/deciliter Endocrine: Blood sugars under control Sliding scale insulin as needed Infectious disease: We will send pancultures Musculoskeletal: Decubitus ulcer prevention protocol Lines: central line Back Prophylaxis: Lovenox, pantoprazole Quality Stroke Does the patient have a stroke diagnosis?: No VTE Prior VTE?: No VTE Risk Level:: Medical - moderate - high VTE Device Contraindication: N/A - Device Ordered VTE Drug Contraindication: Treatment Not Tolerated
[2025-10-11] MEDS: Furosemide 40 MG/4 ML VIAL IVPUSH ×2 (10:18→17:25)
--- NOTE | 2025-10-11 10:40 | MHC.CLN ---
F/U PT EXTUBATED ON 10/10 NOW DNR/DNI DIET NPO PENDING SWALLOW EVAL DISCUSSED AT ROUNDS WITH MD-PLAN FOR STEAM PRESSER EVAL AND POSSIBLE NGT WITH TUBE FEEDING IF TF NEEDED; RESUME TF NEPRO AT MAX GOAL RATE 40ML/HE TO PROVIDE 1728KCALS, 78G PROTEIN, 698ML FREE WATER FROM FORMULA MONITOR TOLERANCE AND LYTES FOLLOWING WITH TEAM
--- NOTE | 2025-10-11 10:51 | MHC.CM.PN ---
Pt extubated on 10/10, A&O x4: scant urine output and continued anasarca. SNF referrals made: surgery following for decub management and possible wound vac application. CM to follow
[2025-10-11 11:33] LABS: Glucose, Whole Blood 81 mg/dL (60-115)
[2025-10-11 11:38] LABS: Albumin Level 3.6 g/dL (3.5-5.0); Alkaline Phosphatase 590 U/L (39-117); Anion Gap 20 (12-20); Aspartate Amino Transferase 128 U/L (5-31); Blood Urea Nitrogen 109 mg/dL (9-16); Calcium 9.1 mg/dL (8.4-10.2); Carbon Dioxide 20 mmol/L (22-29); Chloride 119 mmol/L (96-108); Creatinine Clr Calc Pharmacy 15.2; Estimated Glomerular Filt Rate 19; Potassium 4.2 mmol/L (3.3-5.1); Sodium 155 mmol/L (135-145); Total Protein 5.5 g/dL (6.5-8.0)
[2025-10-11 11:46] LABS: Alanine Aminotransferase 77 U/L (0-31)
--- NOTE | 2025-10-11 12:42 | HO.WOUND ---
Wound Consult: Follow up 80 yr old female admitted to [facility] on 09/25/25 - See progress notes and H&P for detailed history. Patient remains in the ICU, extubated yesterday. Seen with direct care RN. Nutrition following. SIPP in Place, CHLOE mattress in use. Surgery saw last week with change to dakins wet to dry for topical treatment. Patient with days of low platelets and areas of purpura noted to chest, arms, legs and heels. Coccyx 09/27/25 10/04/25 Coccyx 10/11/25 Etiology: coccyx stage 4 pressure injury Present on Admission - unstageable on admission Measurements: 9cm x 5cm x 1cm undermining 12-12, 1cm Wound Bed: moist yellow necrotic tissue- bone palpable in base - black leathery eschar Drainage / Odor: small leonard no odor Edges: ? open Anne wound: ? No Induration, Fluctuance or Warmth noted Pain: yes Goals of Treatment: ? Coccyx -Off Load Pressure with Q2 hr turns and use of pillows - Cleanse with NS moist gauze, pat dry. ?Apply thin layer of Triad or barrier cream to wound bed. Apply dakins moist gauze dressing to wound bed cover with foam dressing or ABD pad. Change BID 10/04/25 Left heel 10/11/25 Left heel - Deep tissue pressure injury present on admission - noted on admission assessment as redness - appears as deflating blood blister - foam dressing applied - now noted with new area of purpura diffuse area with deep purple center and maroon edges in the setting of low platelets. Deep tissue pressure injury: Intact or non intact skin with localized are of non-blanchable deep red, maroon, purple discoloration OR epidermal separation revealing a dark wound bed OR blood filled blister. Pain and temperature changes often precede color changes, can show 48-72 hours later. May resolve without causing ulceration or full thickness skin loss, or it may evolve to reveal actual extent of tissue injury right heel- noted with are of purpura - intact with central deep purple, periphery with maroon - foam dressing and offloading boots in place. Left arm- bruising/purpura with blood filled blister/hematoma Right arm- bruising/purpura and skin tear Chest- purpura Legs - scattered intact areas of purpura Recommendations: 1. Turn and Reposition every 2 hours and as needed for patient comfort. Use pillows or wedges to support off loading positions. 2. Off Load all bony prominences with use of pillows and heel boots if needed. Apply Preventative foams where needed. 3. Monitor for incontinence and moisture control, use barrier creams when needed for prevention and treatment. 4. Provide adequate and supplemental nutrition. 5. Order or Continue low air loss mattress. 6. When applicable maintain blood glucose levels per Providers order. Coccyx: Off Load Pressure with Q2 hr turns and use of pillows - Cleanse with NS moist gauze, pat dry. ?Apply thin layer of Triad or barrier cream to wound bed. Apply dakins moist gauze dressing to wound bed cover with foam dressing or ABD pad. Change Daily. Bilateral heels: Elevate heels off of bed surface with pillows. Float heels off of pillows. Apply skin prep allow to dry. Apply heel foam dressings, peel back and assess Q shift and change every 5-7 days and PRN. Re-consult wound care Nurse for wound deterioration or wound changes.
--- NOTE | 2025-10-11 12:56 | MHC.SL.SWA ---
Speech Pathologist Impression: Severe oropharyngeal dysphagia Risk of Aspiration Due to: recent extubation, prolonged intubation, hx of aspiration pna Dysphasia Diet Status: Recommend CONTINUE NPO Liquid Consistency and Strategies for Safe Swallow: Liquid Intake Recommendation: NPO Liquid Intake Strategies: Solid Food Consistency: Dietary Recommendations: NPO Additional Modifications to Solid Foods: Okay for ice chips ONLY after completion of oral care; UP TO 10 ICE CHIPS ALLOWED Oral Medication Intake: NPO Please contact the pharmacy regarding appropriate crushable or liquid drug formulations that are available whenever modified delivery is recommended. Compensatory Strategies and Precautions to be Taken for Safe Swallow: Sitting Upright (90 deg) Double Swallow Supervision While Eating and Drinking for Safe Swallow: PO with TOPPER PRESS OPERATOR Foods to Avoid: Swallowing Recommended Treatments: Compens. Strategy Educat. Recommendation for Speech: Inpatient Speech Therapy Comment: Patient presents with severe oropharyngeal dysphagia. Patient seen with swallow re-evaluation. Per critical care note on 10/03/25: 80yo F with Sjogren syndrome, scleroderma, CREST, chronic diastolic CHF, pulmonary hypertension, CKD 3, myelodysplastic syndrome, intestinal AV malformations, and avascular necrosis of the hip s/p recent [facility] at [facility], recent admission to [facility] for aspiration PNA/ERIC/achalasia with apersitalsis/candidal esophagitis admitted on 09/25/2025 for management of CHF. On 10/02/2025, a KUB was ordered d/t persistent nausea with no evidence of bleeding.?Early this morning, a TEST ENGINEERING INTERN was activated after she became unresponsive and hypotensive (SBP 50s) with agonal breathing, distended abdomen. During intubation, a large amount of coffee ground emesis was suctioned. She was then transferred to ICU with massive GI bleed and likely aspiration. On my exam, the pt is hypotensive to SBP 60s, ashen, with distended abdomen. There is black liquid stool in her colostomy bag. Blood is transfusing and she is being treated for hemorrhagic shock. CT ordered. Attempts to reach family have been unsuccessful Patient extubated yesterday, 10/10/25. Total number of days intubated: 8 days. Patient with noted weak cough reflex requiring deep suctioning. Patient's OME poor, noted reduced movements of all articulators; unable to fully perform lingual protrusion. Unable to puff cheeks with air. Unable to perform dry swallow. Vocal quality noted to be weak and aphonic at times. Patient with absent gag reflex; swab all the way to posterior pharyngeal wall with no reflex. Per RN, no gag reflex with deep suctioning after extubation as well. Patient given ice chips x3 and less than teaspoon water x3. No overt s/sx aspiration; possible attempt of coughing noted but cannot be sure. Patient with desaturations to mid-80s requiring multiple breaks and cues for her to breath through nose. Patient unable to voice after swallow (count to 4), reporting fatigue. Patient stating I want water multiple times. Given hx of aspiration, prolonged intubation, absent gag reflex, and recent extubation recommend CONTINUE NPO; ice chips okay ONLY after completion of oral care- UP TO 10 ICE CHIPS allowed for comfort. TOPPER PRESS OPERATOR to continue to follow, patient will be prioritized. MD, RD, and RN notified of recommendations via secure chat. Frequency/Duration: M-F while inpatient Date Range for Service Req: Timeline to reassess: Ethylbenzene Converter Helper Clinican/Clinical Fellow: No Supervisory Statement: I have reviewed and agree with the student/clinical fellow's documentation: N/A Speech Language Pathologist: Daija Mcnally M.A., CCC-TOPPER PRESS OPERATOR
[2025-10-11 18:19] LABS: Glucose, Whole Blood 135 mg/dL (60-115)
--- NOTE | 2025-10-11 19:11 | PC.NURSE ---
Assumed care for pt at 0700. Pt alert and oriented x3. Following commands but forgetful at times. Pt on 1 liters oxymask. O2 93-96%. Pt with a moist, wet non productive cough. Minimal gag reflex. Formal speech eval done, see SAMPLE STITCHER note. NG tube placed to right nare, placement confirmed by CXR- see report. Pending tube feed order.? SBP 140-160, scheduled IV push metoprolol and prn hydralazine given x1 with some effect. Anasarca. Ostomy to left upper quadrant minimal output.. Back cath in place; draining with no issues. Pressure injury to coccyx changed per wound care order. Q2 oral care and repositioning performed.
[2025-10-11 20:43] LABS: Venous Blood Gas Refer to POC result
[2025-10-11 20:44] LABS: VBG HCO3 22 mmol/L (22-26); VBG O2 % Saturation 67.0 %
[2025-10-11 20:45] LABS: Ammonia 44 umol/L (13-55)
[2025-10-11 20:54] LABS: Alanine Aminotransferase 69 U/L (0-31); Albumin Level 3.5 g/dL (3.5-5.0); Alkaline Phosphatase 588 U/L (39-117); Anion Gap 22 (12-20); Aspartate Amino Transferase 99 U/L (5-31); Blood Urea Nitrogen 119 mg/dL (9-16); Calcium 9.1 mg/dL (8.4-10.2); Carbon Dioxide 21 mmol/L (22-29); Chloride 116 mmol/L (96-108); Creatinine Clr Calc Pharmacy 15.0; Estimated Glomerular Filt Rate 19; Magnesium 2.1 mg/dL (1.6-2.6); Potassium 4.2 mmol/L (3.3-5.1); Sodium 155 mmol/L (135-145); Total Protein 5.5 g/dL (6.5-8.0)
[2025-10-11 21:09] LABS: Cholesterol 106 mg/dL (<200); HDL Cholesterol 10 mg/dL (>40); Triglycerides 147 mg/dL (<150)
--- NOTE | 2025-10-11 22:02 | PC.NURSE ---
Addendum entered by Ashlie Wilkinson RN 10/12/25 06:21: Throughout shift pts mental status has worsended. Pts is obtunded occasionally opening eyes to touch / noxious stimuli. AM labs demonstrate pt to anemic, HGB 6.5 HCT 20.7, provider Jay made aware and type and screen ordered and drawn. PA aware. Pt remains on 1L oximask. AM metoprolol held due to concern of making pt hypotension, current systolic 120-130s. TF currently at 30ml/hr due to be advanced during day. Report will be given to oncoming RN at 0645. Care ongoing. Safety needs met. Original Note: This RN assumed care for pt at approximately 1900. While receiving report this RN can hear pt shouting water from her room. Bedside report performed on pt at 1900 and pt eyes open, tracking Rns in room. At 1999 this RN went into pts room to do a full assessment and reposition her with POWER CRANE OPERATOR. Pt had RR in 30s-40s and would not respond to this RN. Pt staring at RN unable to communicate. PERRL. Able to follow some commands. Face symmetrical. RN at this time stepped out of room to discuss w/ provider Bear Guillaume. At this time, approx 2014- provider ordered Labs and came in room to assess pt. Labs sent. CT scan head ordered and performed on pt w/ this RN and resource RN transporting on monitor. Duplex US carotid performed as well. Pt remains on 1-2L oxymask at this time. Following some commands, very lethargic. Remains ST 100s. D5@80ml/hr for hypernatremia. Care ongoing at this time.
--- NOTE | 2025-10-11 23:04 | PM.CCN ---
Critical Care Event Note Summary Date of Service: 10/11/25 Code activated: No Narrative: This case had a high probability of a clinically significant, sudden, or life threatening deterioration of this patient's condition which required my full and direct attention, intervention and personal management. Critical Care Time (minutes): 45 Comment: At 20:05, I was made aware that the patient has had sudden mental status changes which were different from initial assessment by nursing at shift change.? Initial laboratories including a chemistry, ammonia, venous blood gas were ordered while I was able to finish work with another patient and was able to evaluate this patient. 20:25, the patient was seen by me, patient soundly asleep but awakes to touch with light painful stimuli, opening her eyes and following basic commands upon request, the patient seems to be understanding everything that I am asking her and is able to comply with commands, however when asked if she was having difficulty expressing herself she replied yes with her head and try to verbalize words but was unable to.? The patient was able to open and close her eyes upon request, frowns, shrugs her shoulders, there is no facial drooping.? She is able to stick her tongue out, wiggles her toes upon request and tries to move the left upper extremity but is not able to move the right upper extremity.? Further neurologic exam is difficult to assess due to the patient's chronic debilitated state and inability to perform the request task. Stat head CT was ordered to rule out stroke.? The patient is NPO with aspiration precautions. Neurology consult placed at 09:05, I was able to speak with Dr. Sanchez at 9 19:00 who is aware of the above and the fact that the patient had a significant GI bleed with hemorrhagic shock.? The patient is not a candidate for TPN or aspirin given this. 2116, head CT shows no acute intracranial pathology and no hemorrhage.? Again the patient is not a candidate for aspirin; although 1 can argue the patient could have rectal aspirin, her platelets are also low.? Risk of bleeding is significant.? Lipid profile ordered, the patient is NPO.? Unable to give a statins at this point. We will allow liberalize blood pressure to avoid hypoperfusion but keeping in mind the patient has significant pulmonary hypertension. Ultrasound of the carotids ordered for tomorrow.? The patient did have an echo on September 27 of this year which shows ejection fraction 65-70%.? With severely increased left ventricular wall thickness with increased gradient across the LVOT addressed at 20 mmHg suggesting obstructive physiology.? Possible mild aortic stenosis and moderate mitral stenosis. The patient will be started on TPN, further swallowing evals will be need, PT evaluation requested.? We will discuss the possibility of MRI in 24 hours. ?The patient remains DNR DNI. This patient counter and care had a high probability of a clinically significant, sudden, or life threatening deterioration of this patient's condition which required my full and direct attention, intervention and personal management. Critical care time used for critical evaluation of this patient, diagnosis, treatment and coordination of care, review her records and documentation TOTAL CRITICAL CARE TIME? 45? MIN . discussion and coordination with consultants, completely separate from any procedures performed. Patient's care was discussed in detail with Dr. Bauman.? He is aware of all the above as well as the plan of care for this patient. .
[2025-10-12] VITALS (19 sets, daily range): BP systolic 118–172; BP diastolic 54–79; PULSE 94–109; RESP 25–34; TEMP 36–36.8; O2SAT 90–100; BMI 24.6
[2025-10-12 00:17] LABS: Glucose, Whole Blood 188 mg/dL (60-115)
[2025-10-12] MEDS: 0.9 % Sodium Chloride Flush 3 ML SYRINGE IVFLUSH ×3 (00:58→16:03)
[2025-10-12 05:02] LABS: VBG HCO3 22 mmol/L (22-26); VBG O2 % Saturation 73.0 %
[2025-10-12 05:06] LABS: Venous Blood Gas Refer to POC result
[2025-10-12 05:30] LABS: Mean Corpuscular HGB Conc 31.4 g/dl (31.0-35.0); Mean Corpuscular Hemoglobin 30.0 pg (27.0-33.0); Mean Corpuscular Volume 95.4 fL (80.0-98.0); NRBC Abs Auto 0.130 X10*3/uL (0.0-0.012); NRBC Pct Auto 0.8 /100WBC (0.0-0.2); Platelet Count 206 X10*3/uL (160-400); Red Blood Count 2.17 X10*6/uL (4.20-5.50); White Blood Count 16.5 X10*3/uL (4.8-10.8)
[2025-10-12 05:34] LABS: Hematocrit 20.7 % (37.0-47.0); Hemoglobin 6.5 g/dl (12.0-16.0)
[2025-10-12 05:50] LABS: Alanine Aminotransferase 62 U/L (0-31); Albumin Level 3.4 g/dL (3.5-5.0); Alkaline Phosphatase 518 U/L (39-117); Anion Gap 19 (12-20); Aspartate Amino Transferase 72 U/L (5-31); Calcium 8.9 mg/dL (8.4-10.2); Carbon Dioxide 22 mmol/L (22-29); Chloride 117 mmol/L (96-108); Creatinine Clr Calc Pharmacy 14.5; Estimated Glomerular Filt Rate 18; Magnesium 2.0 mg/dL (1.6-2.6); Potassium 3.9 mmol/L (3.3-5.1); Sodium 154 mmol/L (135-145); Total Protein 5.2 g/dL (6.5-8.0)
[2025-10-12 06:03] LABS: Blood Urea Nitrogen 125 mg/dL (9-16)
--- NOTE | 2025-10-12 06:56 | P.ACPN_ITS ---
Advanced Care Planning Note Advanced Care Planning Note Discussed with: family member(s) (son Doug Power of research attorney) Time spent (in minutes): 20 Narrative: 06:50, I spoke to the patient's son regarding her mom and current clinical status. The patient has become more and more obtunded throughout the night. As stated before on my event note, the patient had a stroke workup overnight given her decreased responsiveness and lack of ability to pronounce words. Cat scan was negative, she is not a candidate for tPA. Overnight an ultrasound of the carotids bilaterally was done, she does have significant occlusion more so on the left side with Right ICA/CCA ratio 2.1 (at least 50% diameter reduction ) Left proximal ICA 50-79% stenosis. Unfortunately in her condition, it is unlikely that the patient would have any type of intervention. She is not able to take anything by mouth or to receive rectal aspirin due to her ongoing bleeding. This morning, the patient's H&H is below 7, a unit of blood was ordered. The patient's son is hopeful that mom would still be alive by the time he gets here from [place]. He is aware that we can not guarantee it, once he is able to see her, he will make her DIVISION ORDER ANALYST. At this point, I do not see any nonverbal signs of distress or suffering, the patient remains hemodynamically stable with blood pressure 120/56, 107, 31, 92% on a Venturi mask at 3 L. This patient counter and care had a high probability of a clinically significant, sudden, or life threatening deterioration of this patient's condition which required my full and direct attention, intervention and personal management. Critical care time used for critical evaluation of this patient, diagnosis, treatment and coordination of care, review her records and documentation TOTAL CRITICAL CARE TIME 20 MIN . discussion and coordination with consultants, completely separate from any procedures performed. . Patient's care was discussed in detail with Dr. Bauman. He is aware of all the above as well as the plan of care for this patient. Problems Discussed (1) CHF (congestive heart failure): (2) Decompensated heart failure: (3) Acute renal failure: (4) Acute hypernatremia:
[2025-10-12] MEDS: Furosemide 40 MG/4 ML VIAL IVPUSH (08:10)
--- NOTE | 2025-10-12 09:13 | P.PNCC_ITS ---
Subjective Subjective Date of Service: 10/12/25 Interval History: Unresponsive, distress breathing receiving 1 unit PRBC this morning sodium down to 154 Family transitioning her for comfort care Critical Care Time (minutes): 35 Physical Exam 2 Vital Signs: Vital Signs: Last Vital Signs Temp 96.8 F 10/12/25 08:00 Pulse 109 H 10/12/25 09:00 Resp 32 H 10/12/25 09:00 BP 139/63 10/12/25 09:00 Pulse Ox 95 10/12/25 09:00 O2 Del Method Oxymask 10/12/25 09:00 O2 Flow Rate 1 10/12/25 09:00 FiO2 40 10/10/25 10:05 BMI result Body Mass Index 24.6 General: Elderly lady in severe acute distress, chronic ill appearing and tired appearing Nutritional Appearance: well nourished and overweight Eyes: appearance normal, both eyes and all related structures; Alignment and Position: alignment normal and position normal Neck: No lymphadenopathy, no thyromegaly Resp: bilateral air entry equal, occasional added sounds present, dyspneic and tachypneic Cardio: Regular rate, regular rhythm; Heart sounds: S1 normal heart sound present and S2 normal heart sound present GI: soft, nontender, no guarding, no hepatosplenomegaly : bladder normal to inspection, bladder normal to palpation, no renal angle tenderness Skin: no rashes or lesions noted and elasticity normal Neuro: Unresponsive, not following commands, GCS 3 / 15 Objective Data Labs 10/12/25 04:55 10/12/25 04:55 Labs: Laboratory Results - last 24 hr 10/11/25 10/11/25 10/11/25 11:05 11:30 18:13 WBC RBC Hgb Hct MCV MCH MCHC RDW Plt Count MPV Absolute Nucleated RBC Nucleated RBC % (auto) VBG pH VBG pCO2 VBG pO2 VBG HCO3 VBG O2 Saturation VBG Base Excess Sodium 155 H Potassium 4.2 Chloride 119 H Carbon Dioxide 20 L Anion Gap 20 BUN 109 H Creatinine 2.43 H Estim Creat Clear Calc 15.2 Estimated GFR 19 POC Glucose 81 135 H Random Glucose 130 H Calcium 9.1 Phosphorus Magnesium Total Bilirubin 2.6 H AST 128 H ALT 77 H Alkaline Phosphatase 590 H Ammonia Total Protein 5.5 L Albumin 3.6 Triglycerides Cholesterol LDL Cholesterol, Calc HDL Cholesterol Blood Type Antibody Screen Crossmatch 10/11/25 10/11/25 10/12/25 20:31 20:37 00:13 WBC RBC Hgb Hct MCV MCH MCHC RDW Plt Count MPV Absolute Nucleated RBC Nucleated RBC % (auto) VBG pH 7.46 H VBG pCO2 31 VBG pO2 43 VBG HCO3 22 VBG O2 Saturation 67.0 VBG Base Excess -0.8 Sodium 155 H Potassium 4.2 Chloride 116 H Carbon Dioxide 21 L Anion Gap 22 H BUN 119 H Creatinine 2.46 H Estim Creat Clear Calc 15.0 Estimated GFR 19 POC Glucose 188 H Random Glucose 183 H Calcium 9.1 Phosphorus 4.0 Magnesium 2.1 Total Bilirubin 2.4 H AST 99 H ALT 69 H Alkaline Phosphatase 588 H Ammonia 44 Total Protein 5.5 L Albumin 3.5 Triglycerides 147 Cholesterol 106 LDL Cholesterol, Calc 67 HDL Cholesterol 10 L Blood Type Antibody Screen Crossmatch 10/12/25 10/12/25 10/12/25 04:55 04:58 05:56 WBC 16.5 H RBC 2.17 L D Hgb 6.5 L* D Hct 20.7 L* D MCV 95.4 MCH 30.0 MCHC 31.4 RDW 19.9 H Plt Count 206 D MPV 11.3 Absolute Nucleated RBC 0.130 H Nucleated RBC % (auto) 0.8 H VBG pH 7.51 H VBG pCO2 28 VBG pO2 43 VBG HCO3 22 VBG O2 Saturation 73.0 VBG Base Excess 0.0 Sodium 154 H Potassium 3.9 Chloride 117 H Carbon Dioxide 22 Anion Gap 19 BUN 125 H Creatinine 2.54 H Estim Creat Clear Calc 14.5 Estimated GFR 18 POC Glucose Random Glucose 208 H Calcium 8.9 Phosphorus 4.1 Magnesium 2.0 Total Bilirubin 1.9 H AST 72 H ALT 62 H Alkaline Phosphatase 518 H Ammonia Total Protein 5.2 L Albumin 3.4 L Triglycerides Cholesterol LDL Cholesterol, Calc HDL Cholesterol Blood Type B Positive Antibody Screen NEGATIVE Crossmatch See Detail Microbiology Microbiology Results: Microbiology 10/03/25 09:35 Blood - Venous Blood Culture - Final No growth after 5 days. 10/03/25 09:36 Blood - Venous Blood Culture - Final No growth after 5 days. 09/25/25 16:55 Blood - Venous Blood Culture - Final No growth after 5 days. 09/25/25 16:57 Blood - Venous Blood Culture - Final No growth after 5 days. 09/25/25 16:43 Sacrum Gram Stain - Final 09/25/25 16:43 Sacrum Routine Culture - Final Pseudomonas aeruginosa Enterococcus faecalis Progress Note: A&P Assessment and plan (1) CHF (congestive heart failure): Status: Acute (2) Acute renal failure: Status: Acute (3) Acute hypernatremia: Status: Acute (4) CREST (calcinosis, Raynaud's phenomenon, esophageal dysfunction, sclerodactyly, telangiectasia): Status: Acute (5) Encephalopathy: Status: Acute Plan 80-year-old lady with underlying pulmonary hypertension, diastolic heart failure, CKD 3 and CREST/Sjogren's admitted with exacerbation of underlying heart failure further complicated by hemorrhagic shock secondary to upper GI bleed and pulmonary aspirations requiring intubation and ventilatory support, she was extubated on 10/10/2025. Since her mental status worsened overnight, currently GCS 3 x 15 family decided towards comfort care Neuro: Changes in mental status, currently GCS [address] brain did not show any acute intracranial pathology Not a candidate for thrombolytics given her recent GI bleed Cardiac: blood pressures on higher side on scheduled metoprolol 5mg q6h will add PRN hydralazine 10mg q4h Bedside echo showing hypertrophic LV, normal LV systolic function, IVC is dilated also possibly from underlying pulmonary HTN Respiratory: Acute hypoxemic respiratory failure due to aspiration pneumonia secondary to upper GI bleed Extubated on 10/10/2025, still dyspneic and tachypneic currently on 4L oxymask and needs frequent deep suctioning CT chest on 10/04/2025 showed bilateral pneumonia, left more than right with some pleural effusions which might be a part of anasarca Pulmonary hypertension: Continue sildenafil GI: on tube feeds if she fails speech eval Renal: Acute kidney injury possibly secondary to ATN Creatinine trend has been flat lined around 2.5 Urine output 30ml/hr We will closely monitor I's and O's Avoid nephrotoxic medications Acute hypernatremia: Sodium down to 150 on D5 water along with some lasix will keep the D5W to match urine output Heme: Chronic anemia, closely monitor H&H, transfuse for hemoglobin less than 7 grams/deciliter Endocrine: Blood sugars under control Sliding scale insulin as needed Infectious disease: We will send pancultures Musculoskeletal: Decubitus ulcer prevention protocol Lines: central line Back Prophylaxis: SCD, pantoprazole Family decided towards transitioning to comfort care, we will transfer her to floor Quality Stroke Does the patient have a stroke diagnosis?: No VTE Prior VTE?: No VTE Risk Level:: Medical - moderate - high VTE Device Contraindication: N/A - Device Ordered VTE Drug Contraindication: Treatment Not Tolerated
--- NOTE | 2025-10-12 10:05 | PM.NEUROCN ---
History of Present Illness Data of Consult Service Date: 10/12/25 Primary Care Provider: Jermaine Lazaro MD [facility] Reason for consult: ? Stroke This is a 80yo woman with Sjogren syndrome, scleroderma, CREST, chronic diastolic CHF, pulmonary hypertension, CKD 3, myelodysplastic syndrome, intestinal AV malformations, and avascular necrosis of the hip s/p recent KAREN at [facility], recent admission to [facility] for aspiration PNA/ERIC/achalasia with apersitalsis/candidal esophagitis admitted on 09/25/2025 for management of CHF. On 10/02/2025, a KUB was ordered d/t persistent nausea with no evidence of bleeding.?She became unresponsive and hypotensive (SBP 50s) with agonal breathing, distended abdomen. During intubation, a large amount of coffee ground emesis was suctioned. She was then transferred to ICU with massive GI bleed and likely aspiration. On 10/11/25 she had a sudden change in her mental status. She was having difficulty expressing herself trying to verbalize words but was unable to.? The patient was able to open and close her eyes upon request, frowns, shrugs her shoulders, there is no facial drooping.? She is able to stick her tongue out, wiggles her toes upon request and tries to move the left upper extremity but is not able to move the right upper extremity.? She is in a chronic debilitated state. Stat head CT was negative for acute changes of stroke.? The patient is NPO with aspiration precautions. The patient had a significant GI bleed with hemorrhagic shock.? The patient is not a candidate for TPN or aspirin given this. [facility] Past Medical History Medical History (Updated 10/12/25 @ 11:51 by Becki Gallegos MD) Fungal esophagitis GERD (gastroesophageal reflux disease) Avascular necrosis Myelodysplastic syndrome Telangiectasia Pulmonary hypertension OCD (obsessive compulsive disorder) Humeral fracture Chronic anemia CREST (calcinosis, Raynaud's phenomenon, esophageal dysfunction, sclerodactyly, telangiectasia) Sjogren syndrome Family History Family History Mother Diabetes mellitus Seizure disorder Father Past heart attack Son Diabetes mellitus type 1 Family history: reviewed and not pertinent Surgical History Surgical History S/P ORIF (open reduction internal fixation) fracture H/O shoulder replacement Social History Social History Household Members: Spouse Housing Other:: [facility] Housing Do you presently have visiting nurse or other home services: Yes (13/05 aids) Patient Tobacco Use Status: Never used Tobacco Advance Directives Date on File: 10/21/14 service: No Meds Allergies Allergy/AdvReac Type Severity Reaction Status Date / Time bee pollen (bees) Allergy Swelling Verified 09/25/25 14:17 niacin Allergy Rash Verified 09/25/25 14:16 epinephrine AdvReac Shakiness Verified 09/25/25 14:15 Active Medications: Current Medications Dextrose (Dextrose 50 % 25 Gm/50 Ml Syringe) 25 gm IVPUSH Q15M PRN; Protocol PRN Reason: per Hypoglycemia Standing Ord. Fentanyl (Fentanyl Citrate/Pf 100 Mcg/2 Ml Vial) 25 mcg IVPUSH Q2H PRN; Protocol PRN Reason: Increased WOB Last Admin: 10/11/25 16:21 Dose: 25 mcg Furosemide (Furosemide 40 Mg/4 Ml Vial) 40 mg IVPUSH BID@0900,1800 SILVANO; Protocol Last Admin: 10/12/25 08:10 Dose: 40 mg Glucose (Glucose Gel 15 Gm Gel..Gram.) 15 gm PO Q15M PRN; Protocol PRN Reason: per Hypoglycemia Standing Ord. Hydralazine HCl (Hydralazine Hcl 20 Mg/Ml Vial) 10 mg IVPUSH Q4H PRN; Protocol PRN Reason: SBP > 160 Last Admin: 10/12/25 00:57 Dose: 10 mg Norepinephrine Bitartrate (Levophed) 8 mg in 250 mls @ 0 mls/hr IVCONT .Q0M SILVANO; Protocol Dexmedetomidine HCl (Precedex) 400 mcg in 100 mls @ 0 mls/hr IVCONT .Q0M SILVANO; Protocol Last Titration: 10/10/25 21:09 Dose: Infused Dextrose (D5w) 1,000 mls @ 80 mls/hr IVCONT .[id number] SILVANO Last Admin: 10/11/25 23:34 Dose: 80 mls/hr Insulin Human Lispro (Insulin Lispro 100 Unit/Ml 3 Ml Vial) 0 unit SUBCUT Q6H [facility]; Protocol Last Admin: 10/12/25 06:16 Dose: 4 unit Metoprolol Tartrate (Metoprolol Tartrate 5 Mg/5 Ml Vial) 5 mg IVPUSH Q6H [facility]; Protocol Last Admin: 10/12/25 05:41 Dose: Not Given Sodium Chloride (0.9 % Sodium Chloride Flush 3 Ml Syringe) 3 ml IVFLUSH QSHIFT [facility] Last Admin: 10/12/25 08:09 Dose: 3 ml Sodium Hypochlorite (Sodium Hypochlorite 0.125% 473 Ml Solution) 1 appl TOPICAL BID [facility] Last Admin: 10/12/25 08:13 Dose: 1 appl Home Medications ?Medication ?Instructions ?Recorded ?Confirmed ?Last Taken ?Type ambrisentan 5 mg tablet (Letairis) 5 mg PO BEDTIME 09/25/25 09/26/25 08/20/25 History brinzolamide 1 % eye 1 drp ophthalmic (eye) BID 09/25/25 09/26/25 09/25/25 History drops,suspension gabapentin 100 mg capsule 200 mg PO BEDTIME 09/25/25 09/26/25 08/20/25 History oxycodone 5 mg tablet 5 mg PO QID PRN Pain 09/25/25 09/26/25 Unknown History perfluorohexyloctane (PF) 100 % 1 drp ophthalmic (eye) BID 09/25/25 09/26/25 09/25/25 History eye drops (Miebo (PF)) quetiapine 25 mg tablet 25 mg PO BEDTIME 09/25/25 09/26/25 08/20/25 History sildenafil (pulm.hypertension) 20 20 mg PO TID 09/25/25 09/26/25 08/20/25 History mg tablet treprostinil diolamine 1 mg 3 mg PO TID 09/25/25 09/26/25 08/20/25 History tablet,extended release (Orenitram) metoprolol succinate 50 mg 50 mg PO DAILY 09/26/25 09/26/25 Unknown History tablet,extended release 24 hr vitamin B complex 1 tab PO DAILY 09/26/25 09/26/25 08/20/25 History Physical Exam Vital Signs: Vital Signs: Last Vital Signs Temp 96.8 F 10/12/25 08:00 Pulse 109 H 10/12/25 09:00 Resp 32 H 10/12/25 09:00 BP 139/63 10/12/25 09:00 Pulse Ox 95 10/12/25 09:00 O2 Del Method Oxymask 10/12/25 09:00 O2 Flow Rate 1 10/12/25 09:00 FiO2 40 10/10/25 10:05 BMI result Body Mass Index 24.6 Neuro: Other: The patient is lethargic but easily arousable. She has some respiratory distress. She does not verbalize or follow any commands. She has roving [id number] eye movements. Pupils are 4 mm reactive to light. There is no obvious facial symmetry. She is flaccid in all 4 extremities and does not move them to command. Right plantar responses extensor and on the left is equivocal. Results Labs 10/12/25 04:55 10/12/25 04:55 Labs: Short CBC 10/12/25 Range/Units 04:55 WBC 16.5 H (4.8-10.8) X10*3/uL Hgb 6.5 L* D (12.0-16.0) g/dl Hct 20.7 L* D (37.0-47.0) % Plt Count 206 D (160-400) X10*3/uL BMP 10/11/25 10/11/25 10/12/25 11:05 20:31 04:55 Sodium 155 H 155 H 154 H Potassium 4.2 4.2 3.9 Chloride 119 H 116 H 117 H Carbon Dioxide 20 L 21 L 22 BUN 109 H 119 H 125 H Creatinine 2.43 H 2.46 H 2.54 H Calcium 9.1 9.1 8.9 Liver Function 10/11/25 10/11/25 10/12/25 Range/Units 11:05 20:31 04:55 Total Bilirubin 2.6 H 2.4 H 1.9 H (0.0-1.0) mg/dL AST 128 H 99 H 72 H (5-31) U/L ALT 77 H 69 H 62 H (0-31) U/L Alkaline Phosphatase 590 H 588 H 518 H (39-117) U/L Albumin 3.6 3.5 3.4 L (3.5-5.0) g/dL Microbiology Microbiology Results: Microbiology 10/03/25 09:35 Blood - Venous Blood Culture - Final No growth after 5 days. 10/03/25 09:36 Blood - Venous Blood Culture - Final No growth after 5 days. 09/25/25 16:55 Blood - Venous Blood Culture - Final No growth after 5 days. 09/25/25 16:57 Blood - Venous Blood Culture - Final No growth after 5 days. 09/25/25 16:43 Sacrum Gram Stain - Final 09/25/25 16:43 Sacrum Routine Culture - Final Pseudomonas aeruginosa Enterococcus faecalis Assessment and Plan (1) Encephalopathy: Status: Acute She probably has a multifactorial encephalopathy. The acute change in her status could possibly be vascular due to a stroke but she is not moving either side to command. Initial CT was negative. Would recommend an MRI of the brain to see if there has been an acute stroke. EEG. Check ammonia levels and rule out other metabolic and infectious etiologies. Procedures Date of Service Date of Service: 10/12/25
--- NOTE | 2025-10-12 10:27 | MHC.CM.PN ---
Pt with worsening status overnight: CVA ruled out: Pt's son on the way from [place] and will transition pt to BREAKER MACHINE TENDER. CM to follow
--- NOTE | 2025-10-12 10:45 | MHC.SLORD ---
Speech Language Pathology Order Status: COLLAR PADDER BLINDSTITCH attempting to see patient. Per chart review and RN report, patient minimally responsive and not appropriate for PO. Patient expected to transfer to GAMEPLAY PROGRAMMER. COLLAR PADDER BLINDSTITCH to continue to follow and assess swallow if patient is appropriate. Patient remains NPO at this time with NG tube feeding.
[2025-10-12 11:42] LABS: Glucose, Whole Blood 209 mg/dL (60-115)
--- NOTE | 2025-10-12 13:58 | HO.WOUND ---
Wound Consult: Follow up 80 yr old female admitted to [facility] on 09/25/25 - See progress notes and H&P for detailed history. 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 Patient was not seen today, last assessment yesterday .. Today's topical recommendations have been adjusted to maintain patient comfort and dignity in light of changes in goals of care. SIPP in Place, CHLOE mattress in use. Dakins has been discontinued and topical recommendations will be for Durafiber packing to wound bed every other day. Etiology: coccyx stage 4 pressure injury Present on Admission - unstageable on admission Goals of Treatment: ? Coccyx -Off Load Pressure with Q2 hr turns and use of pillows - Cleanse with NS moist gauze, pat dry. ?Apply thin layer of Triad or barrier cream to wound bed. Apply Durafiber to wound bed cover with foam dressing or ABD pad. Change every other day. Recommendations: 1. Turn and Reposition every 2 hours and as needed for patient comfort. Use pillows or wedges to support off loading positions. 2. Off Load all bony prominences with use of pillows and heel boots if needed. Apply Preventative foams where needed. 3. Monitor for incontinence and moisture control, use barrier creams when needed for prevention and treatment. 4. Provide adequate and supplemental nutrition. 5. Order or Continue low air loss mattress. 6. When applicable maintain blood glucose levels per Providers order. Coccyx: Off Load Pressure with Q2 hr turns and use of pillows - Cleanse with NS moist gauze, pat dry. ?Apply thin layer of Triad or barrier cream to wound bed. Apply Durafiber to wound bed cover with foam dressing or ABD pad. Change every other day. Bilateral heels: Elevate heels off of bed surface with pillows. Float heels off of pillows. Apply skin prep allow to dry. Apply heel foam dressings, change every 5-7 days and PRN. Re-consult wound care Nurse for wound deterioration or wound changes.
--- NOTE | 2025-10-12 15:29 | PC.NURSE ---
Assumed care at 0700. Upon initial assessment, pt is on d5w drip. Pt obtunded, difficult to rouse. RR > 25, often 30+. Pt received 1 unit prbc. Per MD, pt to receive free water flushes of 200mL q6hr. Per family & MD, pt to transition to comfort care at approx 1330. Pt to be transferred to med-surg. Report given to Candace MACK at approx 1510. Pt repositioned q2hr as tolerated. Fall & safety precautions in place. See MAR and assessments for further detail.
--- NOTE | 2025-10-12 16:12 | PC.NURSE ---
assumed care of patient 15:45 on 10/12. Rapid shallow breathing on 1L oxymask. Family at bedside and coping appropriately. Lisette paged to bedside for comfort and refreshment cart ordered from kitchen. 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 0.25mg IV dilaudid given for work of breathing. Pt otherwise appears comfortable at this time w/p any physical s/s of discomfort and no grimacing or furrowed brow. Will continue to monitor for comfort.
--- NOTE | 2025-10-12 16:54 | PC.NURSE ---
NGT removed at 16:54 with approval from MD Condon at bedside
--- NOTE | 2025-10-12 20:05 | PM.DDS ---
Discharge Sum: Prov Provider Primary care physician: Jermaine Lazaro MD Admitting clinician: Radha Noble Attending physician on admission: Manisha Perez Consults: ID, ICU/ Critical care Pronouncing clinician: Cinthia Trejo Discharge Sum: Diag PCOD Cause of : Failure to thrive in adult Contributing Factors (1) CHF (congestive heart failure): Contributing factors: Long history of diastolic heart failure (2) Acute renal failure: Contributing factors: History of CKD with resulting acute renal failure (3) Acute hypernatremia: (4) CREST (calcinosis, Raynaud's phenomenon, esophageal dysfunction, sclerodactyly, telangiectasia): (5) Encephalopathy: Contributing factors: GCS 3 on day 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 This was earlier in the day on 10/12/2025 Notified by nursing that patient had approximately 19:55. Patient pronounced at the bedside with family present at 2003 pm. All questions and concerns were addressed. Additional Data Confirmation of as documented by pronouncing clinician: no pulse, no respirations, no heart sounds and pupils fixed and dilated Family: at bedside Attending/PCP notified?: No Attending physician: Clyde Condon, DO Was code activated?: No Autopsy requested?: No automobile insurance claim examiner notified?: No Organ bank notified?: Yes Advance directives: Yes Hospice patient?: No
== END 2025-10-12 22:45 | disposition expired | DRG 291 ==
LOC: HO.ED 17:31 → HO.EDOVER 18:13 → HO.IMC 19:16 → HO.ICU 10-03 00:18 → HO.S3 10-12 14:55
PROVIDERS: Family Medicine; Internal Medicine; Internal Medicine Critical Care Medicine; Internal Medicine Pulmonary Disease; Nurse Practitioner Family; Physician Assistant Medical; Registered Nurse Community Health; Admitting Provider Nurse Practitioner Acute Care; Emergency Provider Emergency Medicine; PCP Internal Medicine; Visit Provider Hospitalist
DX: I13.0 Hypertensive heart and chronic kidney disease with heart failure and stage 1 through stage 4 chronic kidney disease, or unspecified chronic kidney disease (principal); G93.41 Metabolic encephalopathy; I50.33 Acute on chronic diastolic (congestive) heart failure; N17.0 Acute kidney failure with tubular necrosis; J96.01 Acute respiratory failure with hypoxia; K72.00 Acute and subacute hepatic failure without coma; K55.21 Angiodysplasia of colon with hemorrhage; J69.0 Pneumonitis due to inhalation of food and vomit; B37.81 Candidal esophagitis; M46.28 Osteomyelitis of vertebra, sacral and sacrococcygeal region; I96 Gangrene, not elsewhere classified; D62 Acute posthemorrhagic anemia; J91.8 Pleural effusion in other conditions classified elsewhere; E87.0 Hyperosmolality and hypernatremia; N18.30 Chronic kidney disease, stage 3 unspecified; I08.0 Rheumatic disorders of both mitral and aortic valves; D46.9 Myelodysplastic syndrome, unspecified; I50.813 Acute on chronic right heart failure; K22.0 Achalasia of cardia; E87.6 Hypokalemia; B95.2 Enterococcus as the cause of diseases classified elsewhere; Z66 Do not resuscitate; Z51.5 Encounter for palliative care; B96.5 Pseudomonas (aeruginosa) (mallei) (pseudomallei) as the cause of diseases classified elsewhere; D63.1 Anemia in chronic kidney disease; R62.7 Adult failure to thrive; Z68.24 Body mass index [BMI] 24.0-24.9, adult; R57.8 Other shock; I27.21 Secondary pulmonary arterial hypertension; L89.150 Pressure ulcer of sacral region, unstageable; M35.00 Sjogren syndrome, unspecified; M34.1 CR(E)ST syndrome; Z20.822 Contact with and (suspected) exposure to COVID-19; Z79.899 Other long term (current) drug therapy
CPT/HCPCS: 36415; 70450; 71045; 71260; 72193; 74018; 74177; 80048; 80053; 80061; 80076; 80202; 82040; 82140; 82550; 82607; 82728; 82746; 82803; 82947; 83540; 83605; 83615; 83735; 83880; 84100; 84484; 85007; 85025; 85027; 85045; 85384; 85610; 85652; 85730; 86140; 86850; 86900; 86901; 86920; 86923; 87040; 87070; 87077; 87186; 87205; 87637; 92526; 92610; 93005; 93306; 93880; 94002; 94003; 97110; 97162; 97530; 99285; J0290; J0330; J0360; J0613; J0616; J0618; J0637; J0878; J1171; J1644; J1938; J1956; J2250; J2270; J2405; J2470; J2543; J2598; J2704; J2765; J2997; J3010; J3374; J3475; J3480; J7120; P9016; P9017; P9047; P9073; Q9967

== ENCOUNTER → 2025-09-25 15:01 | Outpatient (BNV) | payer OTHER, MEDICARE, SELFPAY | PROVIDERS: Emergency Provider Emergency Medicine; PCP Internal Medicine; Visit Provider Student in an Organized Health Care Education/Training Program | DX: J90 Pleural effusion, not elsewhere classified (principal) | CPT/HCPCS: 71045 ==

== ENCOUNTER 2025-09-25 18:06 | Outpatient (BNV) | payer MEDICARE, OTHER, SELFPAY | END 2025-10-02 12:44 | PROVIDERS: Admitting Provider Nurse Practitioner Acute Care; Emergency Provider Emergency Medicine; PCP Internal Medicine; Visit Provider Radiology Diagnostic Radiology | DX: Z46.82 Encounter for fitting and adjustment of non-vascular catheter (principal) | CPT/HCPCS: 71045; 74018 ==

== ENCOUNTER 2025-09-25 18:06 | Outpatient (BNV) | payer MEDICARE, OTHER, SELFPAY | END 2025-10-04 14:08 | PROVIDERS: Admitting Provider Nurse Practitioner Acute Care; Emergency Provider Emergency Medicine; PCP Internal Medicine; Visit Provider Internal Medicine Cardiovascular Disease | DX: R00.0 Tachycardia, unspecified (principal); I49.3 Ventricular premature depolarization; I44.5 Left posterior fascicular block | CPT/HCPCS: 93010 ==

== ENCOUNTER 2025-09-25 18:06 | Outpatient (BNV) | payer MEDICARE, OTHER, SELFPAY | END 2025-09-28 12:23 | PROVIDERS: Admitting Provider Nurse Practitioner Acute Care; Emergency Provider Emergency Medicine; PCP Internal Medicine; Visit Provider Radiology Diagnostic Ultrasound | DX: R18.8 Other ascites (principal); J90 Pleural effusion, not elsewhere classified; R91.8 Other nonspecific abnormal finding of lung field | CPT/HCPCS: 71045; 72193 ==

== ENCOUNTER 2025-09-25 18:06 | Outpatient (BNV) | payer MEDICARE, OTHER, SELFPAY | END 2025-10-01 18:39 | PROVIDERS: Admitting Provider Nurse Practitioner Acute Care; Emergency Provider Emergency Medicine; PCP Internal Medicine; Visit Provider Radiology Diagnostic Radiology | DX: J90 Pleural effusion, not elsewhere classified (principal); J18.9 Pneumonia, unspecified organism; I51.7 Cardiomegaly; I70.0 Atherosclerosis of aorta | CPT/HCPCS: 71045 ==

== ENCOUNTER 2025-09-25 18:06 | Outpatient (BNV) | payer MEDICARE, OTHER, SELFPAY | END 2025-10-04 02:03 | PROVIDERS: Admitting Provider Nurse Practitioner Acute Care; Emergency Provider Emergency Medicine; PCP Internal Medicine; Visit Provider Radiology Diagnostic Radiology | DX: K80.20 Calculus of gallbladder without cholecystitis without obstruction (principal); R18.8 Other ascites; S22.20XA Unspecified fracture of sternum, initial encounter for closed fracture; J90 Pleural effusion, not elsewhere classified; I51.7 Cardiomegaly; E04.2 Nontoxic multinodular goiter; G35.D Multiple sclerosis, unspecified; R13.0 Aphagia | CPT/HCPCS: 70450; 71260; 74177 ==

== ENCOUNTER 2025-09-25 18:06 | Outpatient (BNV) | payer MEDICARE, OTHER, SELFPAY | END 2025-10-11 14:40 | PROVIDERS: Admitting Provider Nurse Practitioner Acute Care; Emergency Provider Emergency Medicine; PCP Internal Medicine; Visit Provider Radiology Diagnostic Radiology | DX: G35.D Multiple sclerosis, unspecified (principal); R13.0 Aphagia | CPT/HCPCS: 70450; 71045 ==

== ENCOUNTER 2025-09-25 18:06 | Outpatient (BNV) | payer MEDICARE, OTHER, SELFPAY | END 2025-09-27 07:00 | PROVIDERS: Admitting Provider Nurse Practitioner Acute Care; Emergency Provider Emergency Medicine; PCP Internal Medicine; Visit Provider Internal Medicine Cardiovascular Disease | DX: I42.1 Obstructive hypertrophic cardiomyopathy (principal); I35.2 Nonrheumatic aortic (valve) stenosis with insufficiency; I51.89 Other ill-defined heart diseases | CPT/HCPCS: 93306 ==

== ENCOUNTER → 2025-09-25 18:06 | Outpatient (BNV) | payer MEDICARE, OTHER, SELFPAY | PROVIDERS: Admitting Provider Nurse Practitioner Acute Care; Emergency Provider Emergency Medicine; PCP Internal Medicine; Visit Provider Internal Medicine Pulmonary Disease | DX: I50.9 Heart failure, unspecified (principal); R57.8 Other shock; L89.159 Pressure ulcer of sacral region, unspecified stage; T17.900A Unspecified foreign body in respiratory tract, part unspecified causing asphyxiation, initial encounter; K92.2 Gastrointestinal hemorrhage, unspecified; M35.00 Sjogren syndrome, unspecified; M34.1 CR(E)ST syndrome | CPT/HCPCS: 99291 ==

== ENCOUNTER → 2025-09-25 18:06 | Outpatient (BNV) | payer MEDICARE, OTHER, SELFPAY | PROVIDERS: Admitting Provider Nurse Practitioner Acute Care; Emergency Provider Emergency Medicine; PCP Internal Medicine; Visit Provider Internal Medicine Gastroenterology | DX: K92.2 Gastrointestinal hemorrhage, unspecified (principal) | CPT/HCPCS: 99222 ==

== ENCOUNTER → 2025-09-25 18:06 | Outpatient (BNV) | payer OTHER, MEDICARE, SELFPAY | PROVIDERS: Admitting Provider Nurse Practitioner Acute Care; Emergency Provider Emergency Medicine; PCP Internal Medicine; Visit Provider Nurse Practitioner Acute Care | DX: I50.33 Acute on chronic diastolic (congestive) heart failure (principal); N18.30 Chronic kidney disease, stage 3 unspecified; L89.150 Pressure ulcer of sacral region, unstageable; D46.9 Myelodysplastic syndrome, unspecified; R60.1 Generalized edema | CPT/HCPCS: 99222; 99233 ==

== ENCOUNTER → 2025-09-25 18:06 | Outpatient (BNV) | payer MEDICARE, OTHER, SELFPAY | PROVIDERS: Admitting Provider Nurse Practitioner Acute Care; Emergency Provider Emergency Medicine; PCP Internal Medicine; Visit Provider Internal Medicine | DX: I50.9 Heart failure, unspecified (principal) | CPT/HCPCS: 99233 ==

== ENCOUNTER → 2025-09-25 18:06 | Outpatient (BNV) | payer MEDICARE, OTHER, SELFPAY | PROVIDERS: Admitting Provider Nurse Practitioner Acute Care; Emergency Provider Emergency Medicine; PCP Internal Medicine; Visit Provider Internal Medicine | DX: L89.159 Pressure ulcer of sacral region, unspecified stage (principal); K20.80 Other esophagitis without bleeding; B49 Unspecified mycosis | CPT/HCPCS: 99222; 99232 ==

== ENCOUNTER → 2025-09-25 18:06 | Outpatient (BNV) | payer MEDICARE, OTHER, SELFPAY | PROVIDERS: Admitting Provider Nurse Practitioner Acute Care; Emergency Provider Emergency Medicine; PCP Internal Medicine; Visit Provider Psychiatry & Neurology Neurology | DX: G93.40 Encephalopathy, unspecified (principal) | CPT/HCPCS: 99222 ==

== ENCOUNTER → 2025-09-25 18:06 | Outpatient (BNV) | payer MEDICARE, OTHER, SELFPAY | PROVIDERS: Admitting Provider Nurse Practitioner Acute Care; Emergency Provider Emergency Medicine; PCP Internal Medicine; Visit Provider Nurse Practitioner Family | DX: R57.8 Other shock (principal); K92.2 Gastrointestinal hemorrhage, unspecified | CPT/HCPCS: 99291; 99292 ==

== ENCOUNTER → 2025-09-25 18:06 | Outpatient (BNV) | payer MEDICARE, OTHER, SELFPAY | PROVIDERS: Admitting Provider Nurse Practitioner Acute Care; Emergency Provider Emergency Medicine; PCP Internal Medicine; Visit Provider Physician Assistant Surgical | DX: L89.159 Pressure ulcer of sacral region, unspecified stage (principal) | CPT/HCPCS: 99222; 99232 ==